=== PATIENT | female | born 1965 | race Caucasian/White ===

== ENCOUNTER → 2021-09-28 07:29 | Outpatient (CLI) | payer BC, SELFPAY ==
--- NOTE | 2021-09-28 07:36 | US_ITS ---
STUDY: ABDOMINAL ULTRASOUND - RIGHT UPPER QUADRANT REASON FOR VISIT: Female, 55 years old MEAD TECHNIQUE: Ultrasound evaluation of the right upper quadrant was performed with real-time and static marie-scale imaging. TECHNICAL QUALITY: Adequate. COMPARISON: None. FINDINGS: Liver: The liver is enlarged and measures 19.4 cm. There is increased echogenicity consistent with fatty infiltration. The bile ducts are within normal limits. There is hepatic color flow. The direction of portal flow is hepatopetal. There is no demonstrated mass lesion. Gallbladder: The patient is status post cholecystectomy. Common Bile Duct (C.B.D.): The common bile duct measures 6 mm. Pancreas: Normal size of the head, body and tail of the pancreas. There is normal echogenicity of the pancreas. There is no demonstrated pancreatic mass or cyst. Right Kidney: Normal size of the right kidney. The right kidney measures 11.4 cm x 5.9 cm x 4.5 cm. Normal renal cortex. The right cortex measures 1.3 cm. There is no demonstrated renal mass or cyst. There is no right hydronephrosis. IMPRESSION: Hepatomegaly and fatty infiltration of the liver. Electronically Signed: Daquan Conroy MD at 14:41 EST , Service support , STUDY: ABDOMINAL ULTRASOUND - ELASTOGRAPHY REASON FOR VISIT: Female, 55 years old. Fatty infiltration of the liver. TECHNIQUE: Liver stiffness measurements were obtained on a [employer] RS 85 ultrasound machine using a CA 1-7 probe following the SRU guidelines. 3 measurements were obtained using a 2-D-SWE method. The IQR/M was 14% suggesting a quality data set. TECHNICAL QUALITY: Adequate. COMPARISON: Comparison is made with prior examination of the abdomen today. FINDINGS: Liver: Hepatomegaly and fatty infiltration of the liver. Median liver stiffness measured 6.4 kPa. US/Abdomen Limited IMPRESSION: Liver stiffness measures 6.4 kPa compatible with F2 Metavir score. Electronically Signed: Daquan Conroy MD at 14:43 EST , Service support ,
== END ==
PROVIDERS: PCP Internal Medicine; Referring Provider Internal Medicine Gastroenterology; Visit Provider Internal Medicine Gastroenterology
DX: K75.81 Nonalcoholic steatohepatitis (NASH) (principal)
CPT/HCPCS: 76705; 76981; 87426; C9803

== ENCOUNTER → 2021-09-29 10:04 | Outpatient (CLI) | payer BC, SELFPAY ==
--- NOTE | 2021-09-29 10:19 | NM_ITS ---
CLINICAL: 55-year-old female with reported history of abdominal pain. SEMI-SOLID PHASE 99m Tc SULFUR COLLOID GASTRIC EMPTYING STUDY COMPARISON: None available FINDINGS: The patient was administered 1.1 mCi of 99m Tc sulfur colloid mixed with oatmeal and consumed per os. Image acquisitions in the anterior-posterior projections for a total of 60 minutes. There is prompt visualization of the stomach. Persistent visualization of the esophagus is noted during the course of image acquisition. There is no gastroesophageal reflux identified. The T ? emptying was calculated to be 27.72 minutes, (Normal: 12-56 minutes). NM/Gastric Emptying Study IMPRESSION: 1. NORMAL 99m Tc sulfur colloid semi-solid phase (oatmeal) gastric emptying imaging examination. A. There is normal and preserved semi-solid phase gastric emptying compared to normal controls. (Roxana et al, J Nucl Med Tech 38: 186, 2010). Electronically Signed: Yung Humphrey DO at 22:28 EST Tel , Service support ,
[2021-09-29 10:39] LABS: Erythrocyte Sedimentation Rate 21 mm/hr (0-30)
[2021-09-29 11:07] LABS: AST(SGOT) 19 U/L (15-37); Alanine Aminotransfer ALT/SGPT 36 U/L (13-56); Albumin, Serum 3.9 g/dL (3.2-5.0); Alkaline Phosphatase 45 U/L (45-117); Anion Gap 6 (5-15); BUN 13 mg/dL (7-18); BUN/Creat Ratio 13.7 RATIO (10-20); Calcium,Total 9.2 mg/dL (8.5-10.1); Chloride 106 mmol/L (98-107); Creatinine, Serum 0.95 mg/dL (0.55-1.02); EST Glomerular Filtration Rate 65 mL/min (>60); Est Glom Filt Rate - Afr Amer 79 mL/min (>60); Globulin 3.8 g/dL (2.2-4.2); Glucose 105 mg/dL (74-106); Potassium 3.7 mmol/L (3.5-5.1); Protein, Total 7.7 g/dL (6.4-8.2); Sodium Level 142 mmol/L (136-145); Thyroid Stim Hormone (TSH) 5.34 uIU/mL (0.358-3.74)
[2021-10-01 16:57] LABS: AFP, Tumor Marker 1.8 ng/mL (0.0-8.3)
[2021-10-01 16:58] LABS: Gastrin, Serum < 10 pg/mL (0-115)
== END ==
PROVIDERS: PCP Internal Medicine; Referring Provider Internal Medicine Gastroenterology; Visit Provider Internal Medicine Gastroenterology
DX: K31.84 Gastroparesis (principal); K21.9 Gastro-esophageal reflux disease without esophagitis; K76.0 Fatty (change of) liver, not elsewhere classified
CPT/HCPCS: 36415; 78264; 80053; 82105; 82941; 84443; 85652; 86140; A9541

== ENCOUNTER 2021-10-13 12:17 | Day surgery (SDC) | payer BC, SELFPAY ==
--- NOTE | 2021-10-13 | ESO_PTH ---
PATIENT: ANNABELLA JEFFERY LOC: EN U#:[id number] AGE/SX: 56/F ROOM: RE10/13/[address]: Dr. Keny Gomez DO : 1965 BED: DIS: 10/13/2021 SPEC #: [id number] RECD: 10/13/21 15:15 STATUS: GEENA DONI #: [id number] KAYODE: 10/13/21 00:[address]: Keny Gomez DEPT: SURGICAL PATHOLOGY RECD BY: Kofi Ferrari ENTERED: 10/14/21 08:45 SP TYPE: PETR BORJA DR: Dr. Airam Lundberg MD Tissues: A - Esophagus, NOS B - Duodenum, NOS Procedures: Special Stain Group II Surgery Specimen Level IV Alcian Blue/PAS (control) HEADER OPERATION: [place] [place] DIAGNOSIS: GERD, gastroparesis TISSUE SUBMITTED: A ? Distal esophagus, B - Duodenum MICROSCOPIC DIAGNOSIS A. Distal esophagus, biopsy: Gastroesophageal junctional mucosa with chronic inflammation. 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 No evidence of dysplasia. See comment. B. Duodenum, biopsy: No pathologic change. AM:summer 10/15/2021 COMMENT A. Immunohistochemistry ([id number]) for P53 and Ki-67 will be performed and results will be reported separately. Alcian blue/PAS stain with matched control supports the above diagnosis. MICROSCOPIC DESCRIPTION Slides are reviewed. GROSS DESCRIPTION A - Received in fixative is one container labeled with the patient's name and designated distal esophagus biopsy. The specimen consists of multiple irregular fragments of light zhao soft tissue that in aggregate measure 1 x 0.5 x 0.1 cm. The specimen is totally submitted in one cassette. B - Received in fixative is one container labeled with the patient's name and designated duodenum. The specimen consists of multiple irregular fragments of light zhao soft tissue that in aggregate measure 1 x 0.7 x 0.1 cm. The specimen is totally submitted in one cassette. / AM:summer 10/14/21 TC:3 CPT: 08571 x2
--- NOTE | 2021-10-13 | IMM_PTH ---
PATIENT: ANNABELLA JEFFERY LOC: EN U#:[id number] AGE/SX: 56/F ROOM: RE10/13/[address]: Dr. Keny Gomez DO : 1965 BED: DIS: 10/13/2021 SPEC #: [id number] RECD: 10/15/21 13:24 STATUS: GEENA DONI #: [id number] KAYODE: 10/13/21 00:[address]: Keny Gomez DEPT: IMMUNOHISTOCHEMISTRY RECD BY: Otilia Crockett ENTERED: 10/15/21 13:25 SP TYPE: IMMUNO OTHR DR: Dr. Airam Lundberg MD Tissues: A - Esophagus, NOS Procedures: P53 (add) KI-67 (initial) PHYSICIAN & INSTITUTION [place] [id number] SPECIMEN INFORMATION: Tissue Source: A ? Distal esophagus Clinical Info: GERD, gastroparesis Specimen Number: [id number] CPT code: 86469, 21349 METHODOLOGY: Deparaffinized sections of prefer/formalin-fixed tissue or PAP/DQ stained slides are incubated with monoclonal/polyclonal antibodies/oligonucleotide probes. Localization is made via biotin free immunoperoxidase method. Appropriate controls are performed and reacted as expected. Results on target cell population are indicated in the following table: RESULTS: ANTIBODY / CLONE RESULT Block A P53 (DO-7) negative Ki-67 (30-9) positive, very low These tests were developed and their performance characteristics determined by [facility]. They may not have been cleared or approved by the U.S. Food and Drug Administration. The FDA has determined that such clearance or approval is not necessary. The above immunohistochemical/dualISH markers are ordered and reviewed by the Pathologist. INTERPRETATION: A. Distal esophagus, biopsy: Negative for dysplasia. CHRIS:summer 10/19/2021
[2021-10-13] MEDS: Lactated Ringers 1,000 ML 15 ML IV (12:45)
[2021-10-13 12:53] VITALS: BP 158/81; PULSE 93; RESP 16; TEMP 36.8; O2SAT 98; BMI 42.3
[2021-10-13 14:30] VITALS: BP 120/70; BP 120/81; BP 158/81; PULSE 79; PULSE 81; RESP 16; TEMP 37.2; O2SAT 92
--- NOTE | 2021-10-13 14:37 | OP.CCLET_ITS ---
06/30/2022 Airam Lundberg Md Re : Upper GI endoscopy procedure for Brissa Armendariz Dear Dr. Lundberg This procedure was performed on Wednesday, October 13, 2021. My impressions and recommendations are as follows: Impressions : - LA Grade A reflux esophagitis. Biopsied. - Normal stomach. - Erythematous duodenopathy. Recommendations : - Discharge patient to home. - Resume previous diet. - Continue present medications. - Await pathology results. - Repeat upper endoscopy in 1 year for surveillance based on pathology results. - Return to GI office in 2 weeks. My findings are described in the full procedure note, which is enclosed. If I can be of further assistance, please feel free to contact me at . Sincerely, Keny Friend, 10/13/2021 2:37:15 PM This report has been signed electronically.
--- NOTE | 2021-10-13 14:37 | OP.EGD_ITS ---
Patient Name: Brissa Armendariz Procedure Date: 10/13/2021 1:58 PM Date of : 1965 Age: 56 Procedure: Upper GI endoscopy Indications: Enrique's esophagus Providers: Keny Gomez DO Referring MD: Keny Gomez DO Medicines: See the Anesthesia note for documentation of the administered medications Patient Profile: This is a 56 year old female. Refer to note in patient chart for documentation of history and physical. Patient has symptoms of chronic heartburn. She is status post EGD for Enrique's biopsy within the past three years. Complications: No immediate complications. Procedure: Pre-Anesthesia Assessment: - Prior to the procedure, a History and Physical was performed, and patient medications and allergies were reviewed. The risks and benefits of the procedure and the sedation options and risks were discussed with the patient. All questions were answered and informed consent was obtained. Patient identification and proposed procedure were verified by the physician in the pre-procedure area. Mental Status Examination: alert and oriented. Airway Examination: normal oropharyngeal airway and neck mobility. Respiratory Examination: clear to auscultation. CV Examination: normal. Prophylactic Antibiotics: The patient does not require prophylactic antibiotics. Prior Anticoagulants: The patient has taken no previous anticoagulant or antiplatelet agents. ASA Grade Assessment: II - A patient with mild systemic disease. After reviewing the risks and benefits, the patient was deemed in satisfactory condition to undergo the procedure. The anesthesia plan was to use moderate sedation / analgesia (conscious sedation). Immediately prior to administration of medications, the patient was re-assessed for adequacy to receive sedatives. The heart rate, respiratory rate, oxygen saturations, blood pressure, adequacy of pulmonary ventilation, and response to care were monitored throughout the procedure. The physical status of the patient was re-assessed after the procedure. After obtaining informed consent, the endoscope was passed under direct vision. Throughout the procedure, the patient's blood pressure, pulse, and oxygen saturations were monitored continuously. The gastroscope was introduced through the mouth, and advanced to the second part of duodenum. The upper GI endoscopy was accomplished without difficulty. The patient tolerated the procedure well. Moderate Sedation: Moderate (conscious) sedation was administered by the endoscopy nurse and supervised by the endoscopist. The patient's oxygen saturation, heart rate, blood pressure and response to care were monitored. Total physician intraservice time was 15 minutes. Scope In: 2:16:10 PM Scope Out: 2:22:32 PM Total Procedure Duration Time 0 hours 6 minutes 22 seconds Findings: LA Grade A (one or more mucosal breaks less than 5 mm, not extending between tops of 2 mucosal folds) esophagitis with no bleeding was found 34 to 35 cm from the incisors. Biopsies were taken with a cold forceps for histology. Verification of patient identification for the specimen was done. Estimated blood loss was minimal. The entire examined stomach was normal. Diffuse mildly erythematous mucosa without active bleeding and with no stigmata of bleeding was found in the first portion of the duodenum. Impression: - LA Grade A reflux esophagitis. Biopsied. - Normal stomach. - Erythematous duodenopathy. Recommendation: - Discharge patient to home. - Resume previous diet. - Continue present medications. - Await pathology results. - Repeat upper endoscopy in 1 year for surveillance based on pathology results. - Return to GI office in 2 weeks. Procedure Code(s): --- Professional --- 79190, Esophagogastroduodenoscopy, flexible, transoral; with biopsy, single or multiple 53347, 59, Moderate sedation services provided by the same physician or other qualified health housekeeper caregiver performing the diagnostic or therapeutic service that the sedation supports, requiring the presence of an independent trained observer to assist in the monitoring of the patient's level of consciousness and physiological status; initial 15 minutes of intraservice time, patient age 5 years or older CPT copyright 2017 [employer]. All rights reserved. The codes documented in this report are preliminary and upon diesel engine i pipe fitter review may be revised to meet current compliance requirements. Keny Gomez DO 10/13/2021 2:37:15 PM This report has been signed electronically. Number of Addenda: 1 Note Initiated On: 10/13/2021 1:58 PM Addendum Number: 1 Addendum Date: 06/30/2022 7:20:47 AM MAC was used instead of moderate sedation for the patient. Keny Gomez DO 06/30/2022 7:20:51 AM This report has been signed electronically.
[2021-10-13 14:40] VITALS: BP 126/74; BP 158/81; PULSE 82; RESP 16; O2SAT 94
[2021-10-13 14:45] VITALS: BP 131/77; BP 158/81; PULSE 79; RESP 16; O2SAT 94
[2021-10-13 14:49] VITALS: BP 126/76; BP 158/81; PULSE 79; RESP 16; O2SAT 92
[2021-10-13 14:55] VITALS: BP 158/81
--- NOTE | 2021-10-13 15:48 | PCM.HP.BLA ---
History and Physical Date of Admission: 10/13/21 ANNABELLA JEFFERY, is a 55 F who presents to the office today for abdominal pain, bloating and constipation. She says she originally had problems back in 2011 and is started off with just some mild nausea and abdominal pain. She was seeing a radiology physician in [place]. She had an EGD in 2011 with diagnosis of gastritis treated with TUMs. In October 2018 she had a colonoscopy for screening, previous colonoscopy showed diverticulitis but none seen this time. She then began having more difficulties with constipation, abdominal pain, bloating/gas and her PCP recommended fiber and gastroenterology referral. She saw another radiology physician who did EGD with dilation, biopsies indicated Enrique's esophagus nondysplastic and was prescribed Protonix. The Protonix made her feel ill with RUQ pain and ALT and AST would elevate. She was then prescribed carafate but medication did not help. A third medication was recommended but she felt uncomfortable with situation and returned to her PCP who referred to functional medicine. Met with functional medicine at [facility] for breath test for SEBO versus SEFO; SEFO treated with nystatin and an elimination diet. Saw another radiology physician who prescribed nexium but after taking she started having itching and felt like her throat was closing. She recently she has developed a decreased appetite. She is also very concerned because she was diagnosed with a fatty liver and has been struggling with obesity. She has no problems with hypertriglyceridemia. She has no family members with liver disease. She is not drinking alcohol. She has no problems with iron deposition. She has never had a liver biopsy. 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 Has also had genetic testing in regards to cancer including BRCA I and II. ROS Eyes Eyes: Positive for irritation ENT ENT: Positive for nasal congestion and hoarseness Gastro GI: Positive for abdominal pain, bloating, change in bowel habits, constipation, diarrhea and nausea/dyspepsia Genitourinary-Female: Positive for urinary incontinence Musc Musculoskeletal: Positive for joint pain and stiffness Skin Skin: Positive for dry skin, itchy eyes and rash Aller/Imm Allergy/Immunologic: Positive for itchy eyes Chance/Lymp Hematologic/Lymphatic: Positive for easy bruising Exam Const General: cooperative and comfortable Nutritional Appearance: average body habitus and well nourished [facility] Head: normal to inspection Ears: hearing grossly normal bilaterally Nose: external nose normal Face and sinus: normal facial exam Mouth: oral mucosae normal Throat: posterior oropharynx normal Eyes General: appearance normal, both eyes and all related structures Neck Neck: normal visual inspection Chest Chest palpation & inspection: normal inspection of the chest and normal palpation of entire chest wall Resp Effort & Inspection: normal respiratory effort Auscultation: Bilateral: Clear to Auscultation Cardio Palpation: normal PMI Rate: regular rate Rhythm: regular rhythm GI Inspection: normal to inspection Auscultation: normal bowel sounds Percussion: normal to percussion Palpation: no hepatosplenomegaly Skin General: no rashes or lesions noted Neuro General: patient alert Extrem General: normal to inspection Psych Affect: normal affect Assessment and Plan Assessment and Plan (1) Fatty liver: Status: Acute Orders: Orders: Gastric Emptying Study 1 Week CRP Today Erythrocyte Sed Rate Today AFP, Tumor Marker Today Gastrin, Serum Today Plan - Dr. Bustillo Friend, DO: We will get an elastography, ferritin, protein electrophoresis, viral hepatitis,, DOROTHY level, LENA, anti-smooth muscle antibody, antimitochondrial antibody and serum triglycerides to make sure she does not have any other underlying liver disease. (2) GERD (gastroesophageal reflux disease): Status: Acute Orders: Orders: Gastric Emptying Study 1 Week CRP Today Erythrocyte Sed Rate Today AFP, Tumor Marker Today Gastrin, Serum Today Plan - Dr. Bustillo Friend, DO: She will undergo an EGD with Damon placement to see if she really has gastroesophageal reflux disease and Enrique's esophagus versus nonerosive reflux disease resulting in Enrique's esophagus. (3) Gastroparesis: Status: Acute Orders: Orders: Gastric Emptying Study 1 Week CRP Today Erythrocyte Sed Rate Today AFP, Tumor Marker Today Gastrin, Serum Today Plan - Dr. Bustillo Friend, DO: Because she is experiencing so much bloating and having recurrent nausea I will get a gastric emptying study to evaluate the motility of her stomach. She may also need a small bowel follow-through to evaluate her small bowel because she has a large ventral hernia. Everything in regarding the plan and future recommendations were described in detail to the patient and the visit took approximately 45 minutes. I have re-examined the patient. There are no clinical changes since date of exam.
== END 2021-10-13 15:28 | disposition home or self-care (01) ==
LOC: EN 12:19 → AC 12:20
PROVIDERS: PCP Internal Medicine; Referring Provider Internal Medicine Gastroenterology; Visit Provider Internal Medicine Gastroenterology
PROC: 0DJ08ZZ Inspection of Upper Intestinal Tract, Via Natural or Artificial Opening Endoscopic (ICD-10-PCS; CPT 43235; principal; 2021-10-13 13:25)
DX: K21.00 Gastro-esophageal reflux disease with esophagitis, without bleeding (principal); K31.84 Gastroparesis; K76.0 Fatty (change of) liver, not elsewhere classified; I10 Essential (primary) hypertension; E66.9 Obesity, unspecified; Z68.41 Body mass index [BMI] 40.0-44.9, adult; G89.29 Other chronic pain; Z87.19 Personal history of other diseases of the digestive system; Z87.440 Personal history of urinary (tract) infections; Z79.899 Other long term (current) drug therapy
CPT/HCPCS: 43239; 88305; 88313; 88341; 88342; J7120; J2405

== ENCOUNTER → 2021-10-20 08:40 | Outpatient (CLI) | payer BC, SELFPAY ==
--- NOTE | 2021-10-20 08:45 | US_ITS ---
INDICATION: hypothyroidism, GOITER PT ON LEVOTHYROXINE EXAMINATION: Ultrasound US Thyroid (eg thyroid, parathyroid, parotid) TECHNIQUE: Olivier scale and color doppler imaging was performed of the thyroid gland. COMPARISON: None. FINDINGS: RIGHT THYROID LOBE: The right lobe of the thyroid gland is prominent in size and demonstrates heterogeneous echogenicity with unremarkable vascularity, The right lobe of the thyroid gland measures 5.7 x 2.2 x 2.5 cm. 2 nodules are visualized in the right lobe of the thyroid gland. #1- Location: Lower pole Size: 1.2 x 1.1 x 1.1 cm Composition: 2 Echogenicity: 2 Shape: 0 Margins: 0 Echogenic Foci: 0 Total points 4, TIRADS level TR4 #2- Location: Local Size: 0.4 x 0.5 x 0.5 cm. Composition: 2 Echogenicity: 1 Shape: 0 Margins: 0 Echogenic Foci: 0 Total points 3, TIRADS level TR3 LEFT THYROID LOBE: The left lobe of the thyroid gland is enlarged in size demonstrating heterogeneous echogenicity and unremarkable vascularity. The left lobe of the thyroid gland measures 5.4 x 2.9 x 2.9 cm. 2 hypervascular nodules are visualized within the left lobe. #3- Location: Upper pole Size: 3.3 x 2.2 x 2.3 cm. Composition: 2 Echogenicity: 1 Shape: 0 Margins: 0 Echogenic Foci: 0 Total points3, TIRADS level TR3 #4- Location: Midpole Size: 1.3 x 1.0 x 1.0 cm Composition: Echogenicity: Shape: 0 Margins: 0 Echogenic Foci: 0 Total points 3, TIRADS level TR3 ISTHMUS: The isthmus demonstrates homogenous echogenicity and measures 0.3 cm in AP diameter. No evidence of nodules within the isthmus. US/Thyroid IMPRESSION: Enlargement of both lobes of the thyroid gland. A 1.2 cm TR 4 nodule is visualized in the midpole of the right lobe. TR4: Moderately suspicious (4-6 pts) FNA biopsy if nodule at least 1.5cm; follow if at least 1 cm at 1,2, 3 and 5 years. A 0.5 cm TR 3 nodule is visualized in the midpole of the right lobe. A 3.3cm TR 3 nodule visualized in the midpole of the left lobe. A 1.3 cm TR 3 nodule in the lower pole of the left lobe. TR3: Mildly suspicious (3 pts) FNA biopsy if nodule at least 2.5cm; follow if at least 1.5cm at 1,3 and 5 years.. Electronically Signed: Martin Loving MD at 15:09 EST Tel , Service support ,
== END ==
PROVIDERS: PCP Internal Medicine; Referring Provider Surgery; Visit Provider Surgery
DX: E06.3 Autoimmune thyroiditis (principal); E04.2 Nontoxic multinodular goiter; E03.8 Other specified hypothyroidism
CPT/HCPCS: 76536

== ENCOUNTER 2021-11-19 16:03 | Outpatient (CLI) | payer BC, SELFPAY ==
[2021-11-19 16:50] LABS: Hemoglobin A1c 5.6 % (3.8-5.6)
[2021-11-19 16:51] LABS: LDH 206 U/L (84-246)
[2021-11-19 17:06] LABS: Homocysteine 8.6 umol/L (3.2-10.7)
[2021-11-23 18:08] LABS: Anti-Centromere B Ab <0.2 AI (0.0-0.9); Anti-Chromatin <0.2 AI (0.0-0.9); Anti-Jo <0.2 AI (0.0-0.9); Anti-Scleroderma-70 AB <0.2 AI (0.0-0.9); Cytoplasmic Ab (C-ANCA) <1:20 titer (Neg:<1:20); RNP Ab <0.2 AI (0.0-0.9); SJOGREN'S Anti-SS-A test < 0.2 AI (0.0-0.9); SJOGREN'S Anti-SS-B test < 0.2 AI (0.0-0.9); Smith Ab <0.2 AI (0.0-0.9)
[2021-11-23 21:48] LABS: Angiotensin Convert Enzyme 31 U/L (14-82); Anti-Smooth Muscle ABS 23 Units (0-19); Perinuclear Ab (P-ANCA) <1:20 titer (Neg:<1:20)
[2021-11-24 14:05] LABS: Anti-Mitochondrial AB <20.0 Units (0.0-20.0); Anti-dsDNA Ab <1 IU/mL (0-9)
== END 2021-11-19 23:59 | disposition short-term general hospital (02) ==
LOC: LAB 16:05
PROVIDERS: Visit Provider Nurse Practitioner Adult Health
DX: K76.0 Fatty (change of) liver, not elsewhere classified (principal); R79.82 Elevated C-reactive protein (CRP)
CPT/HCPCS: 36415; 82164; 83036; 83090; 83516; 83615; 86225; 86235; 86256

== ENCOUNTER 2021-11-24 10:06 | Outpatient (CLI) | payer BC, SELFPAY ==
[2021-11-24 13:03] LABS: Vitamin B12 455 pg/mL (211-911); Vitamin D,25 Hydroxy 28.4 ng/mL
== END 2021-11-24 23:59 | disposition short-term general hospital (02) ==
LOC: BIMLAB 10:11
PROVIDERS: PCP Internal Medicine; Referring Provider Internal Medicine; Visit Provider Internal Medicine
DX: E53.8 Deficiency of other specified B group vitamins (principal); E55.9 Vitamin D deficiency, unspecified
CPT/HCPCS: 36415; 82306; 82607

== ENCOUNTER 2021-12-08 11:11 | Outpatient (CLI) | payer BC, SELFPAY ==
--- NOTE | 2021-12-08 | FLU_PTH ---
PATIENT: ANNABELLA JEFFERY LOC: [facility] U#:[id number] AGE/SX: 56/F ROOM: RE12/08/[address]: Dr. Bakari Gleason MD : 1965 BED: DIS: 12/08/2021 SPEC #: [id number] RECD: 12/08/21 13:13 STATUS: GEENA DONI #: [id number] KAYODE: 12/08/21 00:[address]: Bakari Gleason DEPT: CYTOLOGY RECD BY: Kofi Ferrari ENTERED: 12/08/21 13:16 SP TYPE: Fluid OTHR DR: Dr. Kendall Curry MD Tissues: A - Thyroid gland, NOS B - Thyroid gland, NOS C - Thyroid gland, NOS D - Thyroid gland, NOS Procedures: Special Stain Group II Surgery Specimen Level IV Cytospin Fluid HEADER OPERATION: Left thyroid fine needle aspiration PRE-OP DIAGNOSIS: Left thyroid nodules, multiple TISSUE SUBMITTED: A ? Left mid pole thyroid nodule fluid, B ? Left mid pole thyroid nodule slides x4, C ? Left upper thyroid nodule fluid, D ? Left upper thyroid nodule x4 slides DIAGNOSIS CYTOLOGY A. Left mid pole thyroid nodule fluid, FNA (cytospin and cell block): Rare follicular cells noted. B. Left mid pole thyroid nodule, FNA (smears): Suggestive of benign follicular/colloid nodule. The specimen is limited in evaluation due to lack of adequate number of follicular cells. C. Left upper thyroid nodule fluid, FNA (cytospin and cell block): Acellular specimen. D. Left upper thyroid nodule, FNA (smears): Consistent with benign follicular/colloid nodule. Adequate for evaluation. See comment. SJ:rg 12/09/2021 COMMENT Correlation with clinical, radiologic findings and appropriate follow up are necessary. Case has been reviewed in consultation with Dr. Sherman who concurs with the above diagnosis. IDC:AM CYTOLOGY STUDY Slides are reviewed. CYTOLOGY GROSS A - Received is 15 ml of red cloudy fluid with particles labeled with the patient's name and and designated per the requisition as left mid pole thyroid nodule. Submitted for cytology preparation including cell block. B - Received are four smears labeled with the patient's name and designated per the requisition as left mid pole thyroid nodule. Submitted for staining. C - Received is 15 ml of red cloudy fluid with particles labeled with the patient's name and and designated per the requisition as left upper thyroid nodule. Submitted for cytology preparation including cell block. D - Received are four smears labeled with the patient's name and designated per the requisition as left upper thyroid nodule. Submitted for staining. / summer 12/08/2021 TC:5 CPT: 69574 x2, 45611 x4
== END 2021-12-08 23:59 | disposition home or self-care (01) ==
LOC: LABSPEC 11:12
PROVIDERS: PCP Internal Medicine; Visit Provider Surgery
DX: E04.2 Nontoxic multinodular goiter (principal)
CPT/HCPCS: 88108; 88305; 88313

== ENCOUNTER 2021-12-09 08:00 | Outpatient (CLI) | payer BC, SELFPAY ==
--- NOTE | 2021-12-09 08:05 | ECHOD_ITS ---
Reason For Study: ESSENTIAL HYPERTENSION Procedure This was a 2D Doppler, Color Flow transthoracic echocardiogram. Exam performed in department. Left Ventricle Normal size and thickness. Left ventricular systolic function is normal. The estimated ejection fraction is 60 %. No regional wall motion abnormalities noted. Right Ventricle Normal right ventricle. Normal systolic function. Atria The left atrium is mildly enlarged. Normal right atrium. Mitral Valve Normal mitral valve. Tricuspid Valve Normal tricuspid valve. Aortic Valve Normal aortic valve. Trisinus/trileaflet aortic valve. Pulmonic Valve Normal pulmonic valve. Great Vessels Mildly dilated aortic root. The pulmonary artery is normal size. Normal inferior vena cava. Pericardium/Pleural No pericardial effusion. MMode/2D Measurements & Calculations LVIDd: 5.1 cm IVSd: 1.0 cm Ao root diam: 3.8 cm LVIDs: 3.5 cm LVPWd: 1.0 cm RVDd: 3.4 cm FS: 31.7 % LAV(MOD-bp): 77.7 ml LA A4 area: 23.4 cm2 LA dimension(2D): 3.9 cm LAV(MOD-bp) Indexed: 34.7 ml/m2 LAV(MOD-sp2): 75.4 ml LAV(MOD-sp4): 75.4 ml RA A4 area: 17.4 cm2 Time Measurements MV dec time: 0.18 sec Doppler Measurements & Calculations MV E max jason: 81.5 cm/sec Lat Peak E' Jason: 11.7 cm/sec Med Peak E' Jason: 8.6 cm/sec MV A max jason: 58.5 cm/sec E/E' lat: 7.0 E/E' med: 9.5 MV E/A: 1.4 Ao V2 max: 122.9 cm/sec LV V1 max: 102.8 cm/sec PA V2 max: 73.2 cm/sec Ao max P.0 mmHg LV V1 max P.2 mmHg ECHO/Echo Complete Interpretation Summary Normal size and thickness. Left ventricular systolic function is normal. The estimated ejection fraction is 60 %. The left atrium is mildly enlarged. Mildly dilated aortic root. Ordering Physician: Kendall Curry Referring Physician: Kendall Curry Performed By: Iram De La Garza, AVRIL, RVT
== END 2021-12-09 23:59 | disposition home or self-care (01) ==
PROVIDERS: PCP Internal Medicine; Referring Provider Internal Medicine; Visit Provider Internal Medicine
DX: I10 Essential (primary) hypertension (principal); G47.33 Obstructive sleep apnea (adult) (pediatric)
CPT/HCPCS: 93306

== ENCOUNTER 2021-12-23 10:40 | Outpatient (CLI) | payer BC, SELFPAY ==
[2021-12-23 12:48] LABS: T4 Free Direct 1.31 ng/dL (0.76-1.46); Thyroid Stim Hormone (TSH) 1.87 uIU/mL (0.358-3.74)
[2021-12-24 18:53] LABS: Thyroid Peroxidase AB < 8 IU/mL (0-34)
== END 2021-12-23 23:59 | disposition home or self-care (01) ==
LOC: LAB 10:43
PROVIDERS: PCP Internal Medicine; Referring Provider Internal Medicine Endocrinology, Diabetes & Metabolism; Visit Provider Internal Medicine Endocrinology, Diabetes & Metabolism
DX: E03.8 Other specified hypothyroidism (principal); E06.3 Autoimmune thyroiditis
CPT/HCPCS: 36415; 84439; 84443; 86376

== ENCOUNTER → 2022-04-09 | Outpatient (CLI) | payer BC, SELFPAY ==
[2022-04-09 15:34] LABS: T4 Free Direct 1.11 ng/dL (0.76-1.46); Thyroid Stim Hormone (TSH) 2.38 uIU/mL (0.358-3.74)
== END | disposition home or self-care (01) ==
LOC: BIMLAB 14:08
PROVIDERS: PCP Internal Medicine; Referring Provider Internal Medicine Endocrinology, Diabetes & Metabolism; Visit Provider Internal Medicine Endocrinology, Diabetes & Metabolism
DX: E03.9 Hypothyroidism, unspecified (principal)
CPT/HCPCS: 36415; 84439; 84443

== ENCOUNTER → 2022-05-07 | Outpatient (CLI) | payer BC, SELFPAY ==
[2022-05-07 11:38] LABS: Mucous, Urine 0 SEEN /hpf (<or=2+); Red Blood Cells-Urine 0 SEEN /hpf (0-5); White Blood Cells 0 SEEN /hpf (0-5)
[2022-05-07 15:26] LABS: Color, Urine Yellow (Yellow); Glucose, Dipstick Normal (Normal); Ketone-Dipstick Negative (Negative); Leukocyte Esterase-Dipstick 25 /ul (Negative); Nitrite-Dipstick Negative (Negative); Occult Blood-Urine Negative /ul (Negative); Protein-Dipstick Negative (Negative); Specific Gravity, Urine 1.005 (1.002-1.030); Urine Bilirubin Dipstick Negative (Negative); Urine Clarity Sl. Cloudy (Clear); Urine Urobilinogen Normal (Normal)
[2022-05-07 15:53] LABS: Bacteria RARE /hpf (None Seen); Squamous Epithelial Cells - UA 0-5 SEEN /hpf (5-10)
[2022-05-07 17:44] LABS: ALB/GLOB Ratio 1.2 RATIO (0.9-2.4); AST(SGOT) 13 U/L (15-37); Alanine Aminotransfer ALT/SGPT 25 U/L (13-56); Albumin, Serum 4.2 g/dL (3.2-5.0); Alkaline Phosphatase 43 U/L (45-117); Anion Gap 6 (5-15); BUN 14 mg/dL (7-18); BUN/Creat Ratio 15.3 RATIO (10-20); Calcium,Total 9.2 mg/dL (8.5-10.1); Chloride 103 mmol/L (98-107); Creatinine, Serum 0.92 mg/dL (0.55-1.02); EST Glomerular Filtration Rate 68 mL/min (>60); Est Glom Filt Rate - Afr Amer 82 mL/min (>60); Globulin 3.6 g/dL (2.2-4.2); Glucose 91 mg/dL (74-106); Potassium 3.7 mmol/L (3.5-5.1); Protein, Total 7.8 g/dL (6.4-8.2); Sodium Level 141 mmol/L (136-145)
== END | disposition home or self-care (01) ==
LOC: BIMLAB 11:37
PROVIDERS: PCP Internal Medicine; Referring Provider Physician Assistant; Visit Provider Physician Assistant
DX: K75.81 Nonalcoholic steatohepatitis (NASH) (principal); N39.0 Urinary tract infection, site not specified; R10.9 Unspecified abdominal pain
CPT/HCPCS: 36415; 80053; 81001; 87086; 87088

== ENCOUNTER 2022-05-18 16:21 | Outpatient (CLI) | payer BC, SELFPAY ==
[2022-05-21 16:19] LABS: HPV APTIMA, High Risk Negative (Negative)
== END 2022-05-18 23:59 | disposition home or self-care (01) ==
LOC: LABSPEC 16:23
PROVIDERS: PCP Internal Medicine; Referring Provider Obstetrics & Gynecology; Visit Provider Obstetrics & Gynecology
DX: N39.3 Stress incontinence (female) (male) (principal)
CPT/HCPCS: 87086; 87088; 87624; 88175; G0145

== ENCOUNTER → 2022-06-03 | Outpatient (CLI) | payer BC, SELFPAY ==
[2022-06-03 15:47] LABS: Mucous, Urine 0 SEEN /hpf (<or=2+); Red Blood Cells-Urine 0 SEEN /hpf (0-5)
[2022-06-03 16:32] LABS: Color, Urine Straw (Yellow); Glucose, Dipstick Normal (Normal); Ketone-Dipstick Negative (Negative); Leukocyte Esterase-Dipstick 25 /ul (Negative); Nitrite-Dipstick Negative (Negative); Occult Blood-Urine Negative /ul (Negative); Protein-Dipstick Negative (Negative); Urine Bilirubin Dipstick Negative (Negative); Urine Clarity Clear (Clear); Urine Urobilinogen Normal (Normal); Urine pH 6.5 (5.0 - 8.0)
[2022-06-03 16:45] LABS: Bacteria RARE /hpf (None Seen); Squamous Epithelial Cells - UA 0-5 SEEN /hpf (5-10); White Blood Cells 0-5 SEEN /hpf (0-5)
== END | disposition home or self-care (01) ==
LOC: LABSPEC 15:45
PROVIDERS: PCP Internal Medicine; Referring Provider Internal Medicine; Visit Provider Internal Medicine
DX: N39.3 Stress incontinence (female) (male) (principal)
CPT/HCPCS: 81001

== ENCOUNTER → 2022-06-09 | Outpatient (CLI) | payer BC, SELFPAY ==
--- NOTE | 2022-06-09 12:42 | BI_ITS ---
MAMMOGRAPHY - BILATERAL SCREENING REASON FOR EXAM: Female, 56 years old. Routine annual screening examination. PERTINENT HISTORY: Aunts with breast cancer. TECHNIQUE: Digital bilateral breast enmanuel (3D mammographic acquisition) in the CC and MLO projections. 2-D mediolateral oblique (MLO) and craniocaudad (CC) views of both breasts were obtained. CAD: Full Field Digital Mammography with Computer Added Detection was performed. COMPARISON: Comparison is made with prior examination dated 05/12/2021. FINDINGS: Breast Composition: The breasts are heterogeneously dense, which may obscure small masses. There are no dominant masses or suspicious calcifications. Small benign appearing bilateral axillary nodes. No other significant abnormalities are identified. There has been no significant change since the prior study. BI/SCRN MAMM (CAD)W/ENMANUEL BILAT IMPRESSION: Stable bilateral screening mammogram. Yearly follow-up mammogram recommended. (A) ASSESSMENT CATEGORY: BIRADS Category 2: Benign. A letter regarding these results will be sent to the patient by the facility within 30 days. Approximately 10% of breast cancers are not detected by mammography. A normal mammogram should not delay biopsy of a clinically suspicious abnormality. [id number] Electronically Signed: Daquan Conroy MD at 13:15 EDT ,
--- NOTE | 2022-06-09 12:53 | US_ITS ---
EXAM: US RETROPERITONEAL LIMITED, RENAL CLINICAL INDICATION: UTI TECHNIQUE: Limited grayscale and color Doppler sonographic evaluation of the retroperitoneum was performed. This report was created using [employer] report generation technology. COMPARISON: None. FINDINGS: RIGHT KIDNEY: Right kidney measures 12 cm in length. No hydronephrosis. No shadowing calculus. No perinephric collection is demonstrated. 11 mm cyst. No follow-up indicated. LEFT KIDNEY: Left kidney measures 12.1 cm in length. No hydronephrosis. No shadowing calculus. No perinephric collection is demonstrated. Urinary bladder is normal. US/Kidney and Bladder IMPRESSION: No acute abnormality. Electronically Signed: Chapo Contreras MD at 13:49 EDT ,
== END | disposition home or self-care (01) ==
PROVIDERS: PCP Internal Medicine; Visit Provider Urology
DX: Z12.31 Encounter for screening mammogram for malignant neoplasm of breast (principal); N39.0 Urinary tract infection, site not specified
CPT/HCPCS: 76770; 77063; 77067

== ENCOUNTER → 2022-11-09 | Outpatient (CLI) | payer BC, SELFPAY ==
--- NOTE | 2022-11-09 11:56 | US_ITS ---
STUDY: THYROID ULTRASOUND REASON FOR EXAM: Female, 57 years old. Multinodular goiter, hypothyroidism TECHNIQUE: Ultrasound evaluation of the thyroid was performed with real-time and static marie-scale imaging. COMPARISON: Comparison is made with prior examination dated 10/20/2021. FINDINGS: RIGHT LOBE: The right lobe of the thyroid gland is enlarged and measures 5.8 cm x 1.7 cm x 2.2 cm. There is a heterogeneous echotexture. Once again, multiple hypoechoic nodules are seen throughout the right lobe. The largest measures 1 cm x 1.1 cm x 1 cm. This is a collimation of solid/cystic appearance. This is in the lower pole. This is unchanged. LEFT LOBE: The left lobe of the thyroid gland is enlarged and measures 4.7 cm x 2.5 cm x 2.7 cm. There is a heterogeneous echotexture. A dominant solid hypoechoic nodule is seen in the midpole. This measures 3.6 x 2.3 cm x 2.3 cm. This is essentially unchanged. Smaller solid nodules are also seen. These are unchanged. ISTHMUS: The isthmus measures 4 mm. The regional lymph nodes are normal. US/Thyroid IMPRESSION: Enlargement of both lobes of the thyroid was on the right side with a dominant 3.6 cm x 2.3 cm x 2.3 cm solid nodule in the midpole of the left lobe. Biopsy is recommended if not already performed. Electronically Signed: Daquan Conroy MD at 15:36 EST ,
== END | disposition home or self-care (01) ==
PROVIDERS: PCP Internal Medicine; Visit Provider Surgery
DX: E04.2 Nontoxic multinodular goiter (principal); E03.8 Other specified hypothyroidism; E06.3 Autoimmune thyroiditis
CPT/HCPCS: 76536

== ENCOUNTER → 2022-12-06 | Outpatient (CLI) | payer BC, SELFPAY ==
[2022-12-06 12:30] LABS: Anion Gap 7 (5-15); BUN 20 mg/dL (7-18); Calcium,Total 9.1 mg/dL (8.5-10.1); Chloride 103 mmol/L (98-107); Creatinine, Serum 0.91 mg/dL (0.55-1.02); EST Glomerular Filtration Rate 68 mL/min (>60); Est Glom Filt Rate - Afr Amer 82 mL/min (>60); Glucose 106 mg/dL (74-106); Magnesium 2.1 mg/dL (1.6-2.6); Potassium 3.7 mmol/L (3.5-5.1); Sodium Level 140 mmol/L (136-145)
[2022-12-06 12:43] LABS: Free T3 2.7 pg/mL (2.18-3.98); T4 Total, Thyroxin 14.2 ug/dL (4.8-13.9)
== END | disposition home or self-care (01) ==
LOC: BIMLAB 09:03
PROVIDERS: Surgery; PCP Internal Medicine; Referring Provider Internal Medicine; Visit Provider Internal Medicine
DX: E03.8 Other specified hypothyroidism (principal); E06.3 Autoimmune thyroiditis; E04.2 Nontoxic multinodular goiter; I10 Essential (primary) hypertension
CPT/HCPCS: 36415; 80048; 83735; 84436; 84443; 84481

== ENCOUNTER → 2023-01-25 | Outpatient (CLI) | payer BC, SELFPAY ==
--- NOTE | 2023-01-25 07:50 | US_ITS ---
STUDY: ABDOMINAL ULTRASOUND - ELASTOGRAPHY REASON FOR VISIT: Female, 57 years old. NAFLD TECHNIQUE: Liver stiffness measurements were obtained on a [employer] RS 85 ultrasound machine using a CA 1-7 probe following the SRU guidelines. 3 measurements were obtained using a 2-D-SWE method. TheIQR/M was 12% suggesting a quality data set. TECHNICAL QUALITY: Adequate. COMPARISON: Comparison is made with prior study done earlier today. FINDINGS: Liver: Hepatomegaly. Fatty infiltration of the liver. Median liver stiffness measured 5.8 kPa. Abdomen: Hepatomegaly. Fatty infiltration of the liver. US/Abdomen Limited IMPRESSION: Liver stiffness measures 6.8 kPa compatible with F2-F3 (Mild to moderate liver fibrosis) Metavir score. Electronically Signed: Daquan Conroy MD at 14:24 EDT ,
== END | disposition home or self-care (01) ==
PROVIDERS: PCP Internal Medicine; Referring Provider Nurse Practitioner Adult Health; Visit Provider Nurse Practitioner Adult Health
DX: K76.0 Fatty (change of) liver, not elsewhere classified (principal)
CPT/HCPCS: 76705; 76981

== ENCOUNTER → 2023-02-09 | Outpatient (CLI) | payer SELFPAY ==
--- NOTE | 2023-02-09 12:23 | CT_ITS ---
INDICATION: CAD EXAMINATION: CT CHEST WITHOUT CONTRAST - CT Chest W/O Contrast Injection. Cardiac over read examination. TECHNIQUE: Helically acquired images were obtained of the chest. A radiation dose optimization technique was used for this scan. IV Contrast dosage and agent: None. COMPARISON: None. FINDINGS: LUNGS, PLEURA AND LARGE AIRWAYS: Mild degree of increased linear markings at the lung bases suggestive of mild scarring. No pleural effusion or thickening. No pneumothorax. THYROID: No thyroid lesions. HEART AND PERICARDIUM: Heart size is normal. No pericardial effusion. CORONARY ARTERIES: Coronary artery calcification mild degree of coronary artery calcification. VESSELS: Thoracic aorta is not dilated. MEDIASTINUM AND UMANG: No mediastinal or hilar adenopathy. Esophagus is unremarkable. No hiatal hernia. UPPER ABDOMEN: No acute pathology. BONES: No suspicious lytic or blastic abnormality. CT/Limited Chest CT Cardiac Only IMPRESSION: Mild degree of coronary artery calcification. Mild degree of increased markings at the lung bases suggestive of scarring. Electronically Signed: Daquan Conroy MD at 14:59 EDT ,
--- NOTE | 2023-02-09 15:54 | CA.SCORE ---
Calcium Scoring Date of Study:: 02/09/23 Coronary Calcium Scoring: High-resolution Computed Tomographic imaging of the chest was performed on [02/09/2023], with particular attention paid to the coronary arteries. Images from the examination were analyzed for the presence and extent of coronary artery calcification , using coronary calcium quantification software. The patient tolerated the procedure well and there were no complications. The results of the coronary calcification analysis are provided below. Findings Coronary Artery Left Main (LM): 0 Left Anterior Descending (LAD): 0 Left Circumflex (LCX): 0 Right Coronary Artery (RCA): 0 Total Agatston Score: 0 Percentile Rankin Calcium Scoring Interpretation: Different methods to categorize the overall amount of coronary plaque. Overall amount CAC SIS Visual of coronary plaque P1 Mild -100 <2 1-2 vessels with mild amount of plaque P2 Moderate 101-300 3-4 1-2 vessels with moderate amount, 3 vessels with mild amount of plaque P3 Severe 301-999 5-7 3 vessels with moderate amount, 1 vessel with severe amount of plaque P4 Extensive >1000 >8 2-3 vessels with severe amount of plaque Conclusion: No significant atherosclerotic plaquing noted.
== END | disposition home or self-care (01) ==
LOC: CT 12:19
PROVIDERS: PCP Internal Medicine; Referring Provider Physician Assistant Medical; Visit Provider Physician Assistant Medical
DX: E88.81 Metabolic syndrome and other insulin resistance (principal); I25.10 Atherosclerotic heart disease of native coronary artery without angina pectoris
CPT/HCPCS: 75571; 76380

== ENCOUNTER 2023-07-19 10:32 | Outpatient (RCR) | payer BC, SELFPAY | END 2023-07-23 23:59 | LOC: NS 10:32 | PROVIDERS: PCP Internal Medicine; Referring Provider Internal Medicine; Visit Provider Internal Medicine | DX: Z71.3 Dietary counseling and surveillance (principal); E66.01 Morbid (severe) obesity due to excess calories; Z68.41 Body mass index [BMI] 40.0-44.9, adult | CPT/HCPCS: 97802 ==

== ENCOUNTER → 2023-07-29 | Outpatient (CLI) | payer BC, SELFPAY ==
--- NOTE | 2023-07-29 09:37 | BI_ITS ---
MAMMOGRAPHY - BILATERAL SCREENING REASON FOR EXAM: Female, 57 years old. Routine annual screening examination. PERTINENT HISTORY: Aunts with breast cancer. TECHNIQUE: Digital bilateral breast enmanuel (3D mammographic acquisition) in the CC and MLO projections. 2-D mediolateral oblique (MLO) and craniocaudad (CC) views of both breasts were obtained. CAD: Full Field Digital Mammography with Computer Added Detection was performed. COMPARISON: Comparison is made with prior study done June 09, 2022. FINDINGS: Breast Composition: The breasts are heterogeneously dense, which may obscure small masses. There are no dominant masses or suspicious calcifications. Stable small benign-appearing bilateral axillary lymph nodes. No other significant abnormalities are identified. There has been no significant change since the prior study. BI/SCRN MAMM (CAD)W/ENMANUEL BILAT IMPRESSION: Stable bilateral screening mammogram. Yearly follow-up mammogram recommended. (A) ASSESSMENT CATEGORY: BIRADS Category 2: Benign. A letter regarding these results will be sent to the patient by the facility within 30 days. Approximately 10% of breast cancers are not detected by mammography. A normal mammogram should not delay biopsy of a clinically suspicious abnormality. [id number] Electronically Signed: Daquan Conroy MD at 10:43 EDT ,
== END | disposition home or self-care (01) ==
LOC: OPBI 09:36
PROVIDERS: PCP Internal Medicine; Referring Provider Obstetrics & Gynecology; Visit Provider Obstetrics & Gynecology
DX: Z12.31 Encounter for screening mammogram for malignant neoplasm of breast (principal); Z80.3 Family history of malignant neoplasm of breast
CPT/HCPCS: 77063; 77067

== ENCOUNTER 2023-08-02 10:29 | Outpatient (RCR) | payer BC, SELFPAY | END 2023-08-23 23:59 | LOC: NS 10:29 | PROVIDERS: PCP Internal Medicine; Referring Provider Internal Medicine; Visit Provider Internal Medicine | DX: Z71.3 Dietary counseling and surveillance (principal); E66.01 Morbid (severe) obesity due to excess calories; Z68.41 Body mass index [BMI] 40.0-44.9, adult | CPT/HCPCS: 97803 ==

== ENCOUNTER → 2023-09-09 | Outpatient (CLI) | payer BC, SELFPAY ==
[2023-09-09 18:44] LABS: Basophil# 0.02 X10^3/uL; Basophil% 0.2 % (0-1); Eosinophil# 0.23 X10^3/uL; Eosinophils% 2.8 % (0-5); Hematocrit 38.9 % (37-47); Hemoglobin 12.4 g/dL (12.0-15.0); Mean Corp Hgb Conc 31.9 g/dL (32-36); Mean Corpuscular Hgb 28.4 pg (27.0-32.0); Mean Corpuscular Volume 89.2 fL (81-99); Mean Platelet Vol. 10.2 fl (6.2-12.0); Monocyte# 0.62 X10^3/uL; Monocyte% 7.6 % (0-10); NRBC Flagged by Analyzer 0 % (0-5); Neutrophil # 5.04 X10^3/uL (2.7-7.7); Neutrophil % 61.9 % (47-70); POSITIVE COUNT YES; Platelet Count 91 K/mm3 (150-450); RBC Distribution Width CV 14.2 % (11.6-14.6); RBC Distribution Width SD 46.5 fl (35.1-43.9); Red Blood Count 4.36 M/mm3 (4.2-5.4); White Blood Count 8.2 K/mm3 (4.4-11.0)
[2023-09-09 19:19] LABS: ALB/GLOB Ratio 1.1 RATIO (0.9-2.4); AST(SGOT) 14 U/L (15-37); Alanine Aminotransfer ALT/SGPT 35 U/L (13-56); Albumin, Serum 3.9 g/dL (3.2-5.0); Alkaline Phosphatase 44 U/L (45-117); Anion Gap 6 (5-15); BUN 20 mg/dL (7-18); Calcium,Total 8.9 mg/dL (8.5-10.1); Chloride 105 mmol/L (98-107); Creatinine, Serum 1.05 mg/dL (0.55-1.02); EST Glomerular Filtration Rate 57 mL/min (>60); Est Glom Filt Rate - Afr Amer 70 mL/min (>60); Globulin 3.4 g/dL (2.2-4.2); Glucose 88 mg/dL (74-106); Potassium 3.5 mmol/L (3.5-5.1); Protein, Total 7.3 g/dL (6.4-8.2); Sodium Level 143 mmol/L (136-145)
[2023-09-09 19:20] LABS: T4 Free Direct 1.21 ng/dL (0.76-1.46); Thyroid Stim Hormone (TSH) 1.97 uIU/mL (0.358-3.74)
== END | disposition home or self-care (01) ==
LOC: LAB 16:19
PROVIDERS: Nurse Practitioner Adult Health; PCP Internal Medicine; Visit Provider Internal Medicine Endocrinology, Diabetes & Metabolism
DX: K76.0 Fatty (change of) liver, not elsewhere classified (principal); E03.8 Other specified hypothyroidism; E06.3 Autoimmune thyroiditis
CPT/HCPCS: 36415; 80053; 84439; 84443; 85025

== ENCOUNTER → 2024-01-23 | Outpatient (CLI) | payer BC, SELFPAY ==
[2024-01-23 17:34] LABS: ALB/GLOB Ratio 1.2 RATIO (0.9-2.4); AST(SGOT) 23 U/L (15-37); Alanine Aminotransfer ALT/SGPT 38 U/L (13-56); Albumin, Serum 3.8 g/dL (3.2-5.0); Alkaline Phosphatase 39 U/L (45-117); Anion Gap 4 (5-15); BUN 13 mg/dL (7-18); BUN/Creat Ratio 13.8 RATIO (10-20); Calcium,Total 8.9 mg/dL (8.5-10.1); Chloride 105 mmol/L (98-107); Creatinine, Serum 0.94 mg/dL (0.55-1.02); EST Glomerular Filtration Rate 65 mL/min (>60); Est Glom Filt Rate - Afr Amer 79 mL/min (>60); Globulin 3.3 g/dL (2.2-4.2); Glucose 90 mg/dL (74-106); Potassium 3.5 mmol/L (3.5-5.1); Protein, Total 7.1 g/dL (6.4-8.2); Sodium Level 141 mmol/L (136-145)
[2024-01-24 08:52] LABS: T4 Free Direct 1.24 ng/dL (0.76-1.46); Thyroid Stim Hormone (TSH) 1.68 uIU/mL (0.358-3.74)
== END | disposition home or self-care (01) ==
LOC: LAB 15:13
PROVIDERS: PCP Internal Medicine; Referring Provider Internal Medicine Endocrinology, Diabetes & Metabolism; Visit Provider Internal Medicine Endocrinology, Diabetes & Metabolism
DX: I10 Essential (primary) hypertension (principal); E03.8 Other specified hypothyroidism; E06.3 Autoimmune thyroiditis
CPT/HCPCS: 36415; 80053; 84439; 84443

== ENCOUNTER → 2024-01-24 | Outpatient (CLI) | payer BC, SELFPAY ==
--- NOTE | 2024-01-24 12:05 | US_ITS ---
STUDY: THYROID ULTRASOUND REASON FOR EXAM: Female, 58 years old. Hypothyroidism TECHNIQUE: Ultrasound evaluation of the thyroid was performed with real-time and static marie-scale imaging. COMPARISON: None. FINDINGS: RIGHT LOBE: The right lobe of the thyroid gland measures 5.6 x 1.9 x 2.6 cm. There is a heterogeneous echotexture. heterogeneous hypodense well-circumscribed nodule noted on the right measures 1.1 x 0.8 x 0.6 cm. A rounded well-circumscribed heterogeneous nodule is also noted measuring 1.2 x 1.2 x 1.1 cm. LEFT LOBE: The left lobe of the thyroid gland measures 4.5 x 2.7 x 2.8 cm. There is a homogeneous echotexture. Heterogeneous well-circumscribed nodule measures 1.1 x 1.1 x 0.9 cm. Well-circumscribed heterogeneous nodule with a hypoechoic halo measures 3.1 x 2.1 x 2.4 cm. It demonstrates increased color blood flow. ISTHMUS: The isthmus measures 3 mm. . The regional lymph nodes are normal. US/Thyroid IMPRESSION: Enlarged multinodular goiter appears stable. Multiple bilateral Nodules appear essentially stable. Biopsy is again recommended of the dominant nodule on the left which appears stable. Electronically Signed: Raymond Celis MD at 17:15 EDT ,
== END | disposition home or self-care (01) ==
LOC: US 12:04
PROVIDERS: PCP Internal Medicine; Referring Provider Surgery; Visit Provider Surgery
DX: E03.8 Other specified hypothyroidism (principal); E06.3 Autoimmune thyroiditis; E04.2 Nontoxic multinodular goiter
CPT/HCPCS: 76536

== ENCOUNTER → 2024-02-24 | Outpatient (CLI) | payer BC, SELFPAY ==
--- NOTE | 2024-02-24 13:59 | ECHOD_ITS ---
Reason For Study: dilated aortic root Procedure This was a 2D Doppler, Color Flow transthoracic echocardiogram. Exam performed in department. Left Ventricle Normal LV size. Left ventricular systolic function is normal. The estimated ejection fraction is 60 %. Normal diastology for age. No regional wall motion abnormalities noted. Right Ventricle Normal RV size. Normal systolic function. Atria The left atrium is mildly enlarged. Normal right atrium. Mitral Valve Bileaflet diffuse mitral valve thickening. Tricuspid Valve Normal tricuspid valve. Aortic Valve Trisinus/trileaflet aortic valve. Pulmonic Valve The pulmonic valve is not well visualized. Great Vessels Normal aortic root. The pulmonary artery is normal size. Inferior vena cava collapse with respiration. Pericardium/Pleural No pericardial effusion. MMode/2D Measurements & Calculations Ao root diam: 3.7 cm LAV(MOD-bp): 76.6 ml LVAd ap4: 31.4 cm2 LAV(MOD-bp) Indexed: 33.2 ml/m2 LVLd ap4: 8.0 cm LAV(MOD-sp2): 92.8 ml EDV(MOD-sp4): 101.9 ml LAV(MOD-sp4): 61.3 ml EDV(sp4-el): 105.0 ml LVAs ap4: 17.4 cm2 LVLs ap4: 6.6 cm ESV(MOD-sp4): 39.0 ml ESV(sp4-el): 39.0 ml EF(MOD-sp4): 61.7 % EF(sp4-el): 62.9 % SV(MOD-sp4): 62.9 ml SV(sp4-el): 66.1 ml LA A4 area: 21.5 cm2 LA dimension(2D): 4.0 cm RA A4 area: 19.7 cm2 TAPSE: 2.8 cm Time Measurements MV dec time: 0.16 sec Doppler Measurements & Calculations MV E max jason: 83.6 cm/sec Lat Peak E' Jason: 11.1 cm/sec Med Peak E' Jason: 7.9 cm/sec MV A max jason: 62.5 cm/sec E/E' lat: 7.6 E/E' med: 10.5 MV E/A: 1.3 MV V2 max: 81.3 cm/sec MV dec slope: 557.9 cm/sec2 Ao V2 max: 132.4 cm/sec MV max P.7 mmHg Ao max P.0 mmHg MV V2 mean: 55.2 cm/sec Ao V2 mean: 91.8 cm/sec MV mean P.4 mmHg Ao mean P.8 mmHg MV V2 VTI: 21.8 cm Ao V2 VTI: 30.9 cm AV (velocity ratio): 0.77 LV V1 max: 103.2 cm/sec PA V2 max: 68.8 cm/sec LV V1 max P.3 mmHg PA V2 mean: 44.4 cm/sec LV V1 mean P.4 mmHg LV V1 mean: 72.7 cm/sec LV V1 VTI: 23.7 cm ECHO/Echo Complete Interpretation Summary Normal LV size. Left ventricular systolic function is normal. The estimated ejection fraction is 60 %. Bileaflet diffuse mitral valve thickening. Ordering Physician: Kisha Pennington Referring Physician: Kisha Pennington Performed By: Shannen Gould RCS
== END | disposition home or self-care (01) ==
PROVIDERS: PCP Internal Medicine; Referring Provider Physician Assistant Medical; Visit Provider Physician Assistant Medical
DX: I77.810 Thoracic aortic ectasia (principal); I34.89 Other nonrheumatic mitral valve disorders
CPT/HCPCS: 93306

== ENCOUNTER → 2024-02-27 | Outpatient (CLI) | payer BC, SELFPAY ==
--- NOTE | 2024-02-27 08:48 | FLU_PTH ---
PATIENT: ANNABELLA JEFFERY LOC: [facility] U#:[id number] AGE/SX: 58/F ROOM: RE02/27/[address]: Dr. Bakari Glesaon MD : 1965 BED: DIS: 02/27/2024 SPEC #: [id number] RECD: 02/27/24 10:56 STATUS: GEENA DONI #: [id number] KAYODE: 02/27/24 08:[address]: Bakari Gleason DEPT: CYTOLOGY RECD BY: Maureen Villegas ENTERED: 02/27/24 12:16 SP TYPE: Fluid OTHR DR: Dr. Esperanza Moreno MD Tissues: A - Thyroid gland, NOS B - Thyroid gland, NOS Procedures: Special Stain Group II Surgery Specimen Level IV Cytospin Fluid HEADER OPERATION: Fine needle aspiration on left thyroid nodule PRE-OP DIAGNOSIS: Multinodular goiter TISSUE SUBMITTED: A- Left thyroid nodule fluid, B- Left thyroid nodule (smears) DIAGNOSIS CYTOLOGY A. Left thyroid nodule fluid, fine needle aspiration (cytospin and cellblock): Consistent with benign follicular/colloid nodule, [place] Category II. Adequate for evaluation. See comment. B. Left thyroid nodule (smears): Non diagnostic specimen, [place] Category I. See comment. CHRIS/ 02/28/24 COMMENT B. The specimen is nondiagnostic due to lack of adequate number of follicular cells. The [place] System for thyroid diagnostic categorization was used in the evaluation of this case. Correlation with clinical, radiologic findings and appropriate follow up are necessary. CYTOLOGY STUDY Slides are reviewed. CYTOLOGY GROSS A. Received is 30 ml of red-cloudy fluid labeled with the patient's name and and designated per the requisition as Left thyroid nodule. Submitted for cytology preparation including cell block. B. Received are 4 smears labeled with the patient's name and designated per the requisition as Left thyroid nodule. Submitted for staining. Mr 02/27/24 TC:5 CPT: 72312n2,77992
== END | disposition home or self-care (01) ==
LOC: LABSPEC 10:57
PROVIDERS: PCP Internal Medicine; Referring Provider Surgery; Visit Provider Surgery
DX: E04.1 Nontoxic single thyroid nodule (principal)
CPT/HCPCS: 88108; 88305; 88313

== ENCOUNTER → 2024-04-10 | Outpatient (CLI) | payer BC, SELFPAY ==
[2024-04-10 13:16] LABS: Anion Gap 3 (5-15); Chloride 103 mmol/L (98-107); Potassium 3.6 mmol/L (3.5-5.1); Sodium Level 139 mmol/L (136-145)
== END | disposition home or self-care (01) ==
PROVIDERS: PCP Internal Medicine; Referring Provider Internal Medicine Pulmonary Disease; Visit Provider Internal Medicine Pulmonary Disease
DX: R06.02 Shortness of breath (principal); R05.9 Cough, unspecified
CPT/HCPCS: 36415; 80051

== ENCOUNTER → 2024-07-03 | Outpatient (CLI) | payer BC, SELFPAY ==
[2024-07-03 09:41] LABS: Erythrocyte Sedimentation Rate 9 mm/hr (0-30)
[2024-07-03 09:50] LABS: D-Dimer Quantitative (DVT/PE) 0.44 FEU/ug/m (0.27-0.49)
--- NOTE | 2024-07-03 10:35 | RAD_ITS ---
STUDY: X-RAY CHEST REASON FOR EXAM: Female, 58 years old. Shortness of breath. TECHNIQUE: Frontal and lateral views of the chest. COMPARISON: None. FINDINGS: The lungs are clear and expanded. There is no demonstrated pleural abnormality. Normal size heart. Normal mediastinum and kendy. Normal visualized pulmonary arteries. Aortic tortuosity. Normal visualized thoracic spine. Normal visualized ribs, clavicles, and shoulders. No abnormality of the visualized soft tissue structures of the upper abdomen. RAD/Chest PA and Lateral IMPRESSION: No active or acute cardiopulmonary disease. Electronically Signed: Josr Petty MD at 9:40 EDT ,
[2024-07-03 10:41] LABS: CPK Total, Creatine Kinase 71 U/L (26-192); CRP 6.84 mg/L (0.0-3.0); LDH 218 U/L (84-246)
[2024-07-04 13:08] LABS: Anti-Centromere B Ab <0.2 AI (0.0-0.9); Anti-Chromatin <0.2 AI (0.0-0.9); Anti-Jo <0.2 AI (0.0-0.9); Anti-Scleroderma-70 AB <0.2 AI (0.0-0.9); Anti-dsDNA Ab <1 IU/mL (0-9); RNP Ab <0.2 AI (0.0-0.9); SJOGREN'S Anti-SS-A test < 0.2 AI (0.0-0.9); SJOGREN'S Anti-SS-B test < 0.2 AI (0.0-0.9); Smith Ab <0.2 AI (0.0-0.9)
[2024-07-05 05:08] LABS: Aldolase 5.1 U/L (3.3-10.3); Cytoplasmic Ab (C-ANCA) <1:20 titer (Neg:<1:20); Perinuclear Ab (P-ANCA) <1:20 titer (Neg:<1:20)
== END | disposition home or self-care (01) ==
LOC: LAB 09:19
PROVIDERS: Referring Provider Internal Medicine Gastroenterology; Visit Provider Internal Medicine Gastroenterology
DX: R06.02 Shortness of breath (principal)
CPT/HCPCS: 36415; 71046; 82085; 82550; 83615; 85379; 85652; 86140; 86225; 86235; 86256

== ENCOUNTER → 2025-09-12 | Outpatient (CLI) | payer BC, SELFPAY ==
--- NOTE | 2025-09-12 07:43 | US_ITS ---
PROCEDURE: ABD LIMITED W/ ELASTOGRAPHY REASON FOR EXAM: FATTY LIVER COMPARISON: January 25, 2023 TECHNIQUE: Procedure Code: [id number] Modality: US Procedure: ABD LIMITED W/ ELASTOGRAPHY Right upper quadrant abdominal ultrasound. Daniel ElastQ Imaging shear wave elastography for non-invasive assessment of liver tissue stiffness. Daniel EPIQ Elite. FINDINGS: LIVER: Size: Enlarged (hepatomegaly) Length: 21.2 cm Echotexture: Diffusely echogenic suggesting fatty infiltration Contour: Normal Lesions: None identified Elastography: EQI Med: 5.4 kPa EQI Med Jason: 1.34 m/s IQR/Med: 13 %* GALLBLADDER: Surgically absent. COMMON BILE DUCT: Normal measuring 6 mm. . PANCREAS: Normal Visualized portions of the right kidney are unremarkable. No right upper quadrant ascites. US/ABD Limited w/ Elastography IMPRESSION: NO TO MILD HEPATIC FIBROSIS Hepatomegaly. Diffuse fatty infiltration of the liver. Status post cholecystectomy. Reference Values: SRU <1.37 m/s (5.7kPa): No to mild fibrosis 1.37 m/s - 2.2 m/s: Moderate to severe fibrosis >2.2 m/s (15kPa): Significant fibrosis / cirrhosis METAVIR Score F2 or higher: 1.34 m/s (5.7kPa) F3 or higher: 1.55 m/s (7.3kPa) F4: 1.80 m/s (10kPa) * If the IQR/Med is >30%, the variance in the measurements is a large and the a ccuracy of the measurement may be in question. Reading Location: [id number]
--- OUTSIDE RECORDS SUMMARY | 2025-09-12 07:47 | XMS RPT_ITS | CCD ---
Author Organization [facility] Care Team Providers Care Granulator Tender Name Role Phone LutzaT Unavailable Unavailable Unavailable, Family Physician Unavailable Un available Unavailable, Family Physician Unavailable Un available Somasundaram, Meyyappan Unavailable Unavaila ble Unavailable, Family Physician Unavailable Un available Unavailable, Family Physician Unavailable Un available Family Physician Unavailable Unavailable Ingrid vailable [place], Matias H Unavailable Unavailable [place], Matias H Unavailable Unavailable ZARCO, NGUYỄN C Unavailable Unavailable ZARCO, NGUYỄN C Unavailable Unavailable Unknown, Referring Provider Unavailable Unav ailable William DO, Matias H Primary Care Provider [phone] Dr. Kendall Curry Primary Care Provider [phone] Dr. Kendall Curry Referring Provider [phone] Flako FORGING MACHINE OPERATOR, FORGING MACHINE OPERATOR-C Omaira Lopez Attending Provider [phone] Dr. Joyce Kelley Attending Provider [place], [place] Rayne Attending Provider [facility] Dr. Ari Howard Referring Provider Dr. Erma Arndt Attending Provider [phone] Dr. Kendall Curry Attending Provider [phone] William DO, Matias H Primary Care Provider [phone] Dr. Kendall Curry Primary Care Provider [phone] Dr. Kendall Curry Attending Provider [phone] Dr. Kendall Curry Referring Provider [phone] Flako FORGING MACHINE OPERATOR, FORGING MACHINE OPERATOR-C Omaira Lopez Attending Provider [phone] Dr. Bakari Gleason Attending Provider Esperanza Moreno MD Unavailable Jennifer Lombardi LPN Unavailable Unavailable Esperanza Moreno MD Attending Unavailable Esperanza Moreno MD Consulting Unavailable Dr. Kendall Curry Primary Care Provider [phone] Dr. Kendall Curry Attending Provider [phone] Dr. Kendall Curry Referring Provider [phone] Flako FORGING MACHINE OPERATOR, FORGING MACHINE OPERATOR-C Omaira Lopez Attending Provider [phone] Dr. Bakari Gleason Attending Provider Dr. Devin Fuentes Attending Provider Gorge MURRAY, [place] Kisha Lopez Attending Provider Monster LANGSTON, Kayela Unavailable Unavailable William DOMatias H Primary Care Provider Liudmila Mendez MA Unavailable Unavailable Dr. Kendall Curry Referring Provider [phone] Dr. Devin Fuentes Attending Provider MD Esperanza Meneses Primary Care Provider Unava ilable Dr. Kendall Curry Primary Care Provider [phone] Dr. Keny Gomez Attending Provider [phone] Dr. Erma Arndt Attending Provider [phone] Dr. Esperanza Moreno Primary Care Provider Dr. Joyce Kelley Attending Provider Dr. Esperanza Moreno Referring Provider Dr. Kendall Curry Referring Provider [phone] Dr. Devin Fuentes Attending Provider MD Esperanza Meneses Primary Care Provider Unava ilDr. Kendall Ureña Primary Care Provider [phone] Dr. Keny Gomez Attending Provider [phone] Dr. Erma Arndt Attending Provider [phone] Dr. Esperanza Moreno Primary Care Provider Dr. Joyce Kelley Attending Provider Dr. Esperanza Moreno Referring Provider MD Esperanza Meneses Referring Provider Unavaila [facility] Dr. Keny Gomez Attending Provider Dr. Esperanza Moreno Primary Care Provider Dr. Esperanza Moreno Referring Provider Gorge MURRAY, [place] Kisha Lopez Attending Provider Dr. Devin Fuentes Attending Provider [phone] Adolfo Barrow Attending Provider Dr. Bakari Gleason Attending Provider [phone] Unavailable Primary Care Provider Unavailabl e William DO, Matias H Primary Care Provider Esperanza Moreno MD Primary Care Provider ANTOINETTE CARTER Referring Unavailable WILLIAM, MATIAS H Primary Care Unavailable WILLIAM, MATIAS H Primary Care Unavailable ANTOINETTE CARTER Referring Unavailable ANTOINETTE CARTER Attending Unavailable WILLIAM, MATIAS H Primary Care Unavailable ANTOINETTE CARTER Referring Unavailable Esperanza Moreno MD Primary Care Provider Keila THOMAS, Sudhir Primary Care Provider Ari Lundberg MD Primary Care Provider [phone] Mony MCNAMARA, Vitaly Unavailable Keny Gomez Unavailable Eliu Maldonado MD Unavailable Kisha Echavarria Unavailable Devin Fuentes MD Unavailable Madonna MCNAMARA, [place] Unavailable Bakari Gleason MD Unavailable Omi Krueger MD Unavailable Sudhir Pedraza DO Primary Care Provider SELF, SELF Referring Unavailable DEMETRI CARTAGENA Attending Unavailable SELF, SELF Referring Unavailable KEILA, SUDHIR Primary Care Unavailable Eliu Maldonado MD Unavailable Kisha Echavarria Unavailable [phone] ELIU MALDONADO Referring Unavailable ELIU MALDONADO Attending Unavailable KEILA, SUDHIR Primary Care Unavailable MANUEL ELIU Referring Unavailable JACKSONELIU Attending Unavailable KEILA, SUDHIR Primary Care Unavailable KEILA, SUDHIR Primary Care Unavailable NILOSUNITA Attending Unavailable SUINTA WHITE Referring Unavailable OTILIOELIU Referring Unavailable KEILA, SUDHIR Attending Unavailable KEILA, SUDHIR Primary Care Unavailable ELIU MALDONADO Attending Unavailable KEILA, SUDHIR Primary Care Unavailable KEILA, SUDHIR Primary Care Unavailable KEILA, SUDHIR Referring Unavailable KEILA, SUDHIR Attending Unavailable JEFF BOYKIN Attending Unavailable KEILA, SUDHIR Primary Care Unavailable ASHLEY ALEXANDER Attending Unavailable KEILA, SUDHIR Primary Care Unavailable KEILA, SUDHIR Referring Unavailable KEILA, SUDHIR Primary Care Unavailable KEILA, SUDHIR Attending Unavailable ELIU JACKSON Attending Unavailable ELIU JACKSON Referring Unavailable KEILA, SUDHIR Primary Care Unavailable KEILA, SUDHIR Primary Care Unavailable GULOTTAMICHELLEA Attending Unavailable GULOTTA, VONNIE Referring Unavailable KEILA, SUDHIR Primary Care Unavailable KEILA, SUDHIR Attending Unavailable ELIU JACKSON Attending Unavailable KEILA, SUDHIR Primary Care Unavailable KEILA, SUDHIR Referring Unavailable OTILIO ELIU Attending Unavailable KEILA, SUDHIR Primary Care Unavailable OTILIOELIU VALDEZ Attending Unavailable KEILA, SUDHIR Primary Care Unavailable KEILA, SUDHIR Attending Unavailable KEILA, SUDHIR Primary Care Unavailable KEILA, SUDHIR Referring Unavailable KEILA, SUDHIR Attending Unavailable KEILA, SUDHIR Primary Care Unavailable KEILA, SUDHIR Primary Care Unavailable KEILA, SUDHIR Referring Unavailable KEILA, SUDHIR Attending Unavailable KEILA, SUDHIR Primary Care Unavailable GULOTTA, VONNIE Referring Unavailable GULOTTA, VONNIE Attending Unavailable KEILA, SUDHIR Primary Care Unavailable GULOTTA, VONNIE Referring Unavailable GULOTTA, VONNIE Attending Unavailable YEROPOLI, SEVASTI Attending Unavailable KEILA, SUDHIR Primary Care Unavailable KEILA, SUDHIR Primary Care Unavailable KEILA, SUDHIR Attending Unavailable OTILIO, ELIU Attending Unavailable OTILIO, ELIU Referring Unavailable KEILA, SUDHIR Primary Care Unavailable OTILIO, ELIU Attending Unavailable KEILA, SUDHIR Primary Care Unavailable KEILA, SUDHIR Attending Unavailable KEILA, SUDHIR Primary Care Unavailable YEROPOLI, SEVASTI Referring Unavailable KEILA, SDUHIR Primary Care Unavailable YEROPOLI, SEVASTI Attending Unavailable KEILA, SUDHIR Primary Care Unavailable KEILA, SUDHIR Attending Unavailable KEILA, SUDHIR Primary Care Unavailable KEILA, SUDHIR Referring Unavailable Town Doctor, Out of Primary Care Unavailable Town Doctor, Out of Referring Unavailable IsckarJoyce reece Attending Unavailable Town Doctor, Out of Primary Care Unavailable Friend, Keny Attending Unavailable Friend, Keny Referring Unavailable Ari Lundberg Primary Care Unavailable Joyce Kelley Attending Unavailable IsckarJoyce reece Referring Unavailable Friend, Keny Attending Unavailable Town Doctor, Out of Primary Care Unavailable Friend, Keny Attending Unavailable Town Doctor, Out of Primary Care Unavailable Town Doctor, Out of Primary Care Unavailable Town Doctor, Out of Referring Unavailable Friend, Keny Attending Unavailable Town Doctor, Out of Primary Care Physician Unava ilable Town Doctor, Out of Referring Provider Unavailab le Friend Dr. Keny THOMAS Attending Physician Dr. Joyce Kelley MD Attending Physician Dr. Ari Lundberg MD Primary Care Physician Dr. Joyce Kelley MD Referring Provider Allergies Allergy Classification Reported Allergen(s) Allergy Type Date of Onset Reaction(s) Facility Proton Pump Inhibitors (5 sources) Esomeprazole Drug Allergy 08-24-20 21 Other: See Comments, Other [facility] Work Phone: Sulfamethoxazole / Trimethoprim (3 sources) Sulfamethoxazole / Trimethoprim Drug Allergy 03-21-20 18 Other: See Comments, Unknown, Other [facility] Work Phone: (20 sources) sulfamethoxazole / trimethoprim; Translations: [SULFAMETHOXAZOLE-T RIMETHOPRIM] Drug Allergy 03-21-20 18 Other: See Comments, Unknown, Other [facility] Other [facility] (1 source) OTHER; Translations: [OTHER] Propensity to adverse reactions (disorder) 11-04-19 04 [facility] Other [facility] (9 sources) Esomeprazole; Translations: [ESOMEPRAZOLE] Drug Allergy 08-24-20 Other: See Comments [facility] Work Phone: (15 sources) pantoprazole; Translations: [PANTOPRAZOLE] Drug Allergy 08-24-20 Other: See Comments [facility] Work Phone: (20 sources) Trimethoprim Drug Allergy 05-07-20 22 Dizziness [facility] (9 sources) Seasonal Allergies: Uncoded; Translations: [Seasonal Allergies: Uncoded] Allergy to substance 08-16-20 23 Sinus congestion [facility] (20 sources) Esomeprazole Drug Allergy 08-24-20 21 Other [facility] (20 sources) Seasonal allergy Propensity to adverse reactions 05-16-20 24 [facility] (1 source) Sulfonamides (Antibiotic) Propensity to adverse reactions to drug 05-28-20 Rash [facility] (1 source) *Seasonal Propensity to adverse reactions to substance 05-28-20 [facility] (1 source) Trimethoprim Drug Allergy 08-13-20 25 [facility] Repository Medications Current Medications Medication Drug Class(es) Dates Sig (Normalized) Sig (Original) B Complex capsule (1 source) take 1 capsule by mouth once daily B Complex capsule Take 1 capsule by mouth daily. Active B Complex-Folic Acid (B Complex Vitamins, w/ FA,) capsule (7 sources) take 1 capsule by mouth once daily B Complex-Folic Acid (B Complex Vitamins, w/ FA,) capsule Take 1 capsule by mouth daily. Active cholecalciferol 0.125 mg oral capsule (20 sources) Vitamin D Start: 04-24-2024 take 1 capsule by mouth once daily Start: 01-26-2024 End: 04-18-2024 take 1 capsule by mouth once daily Cholecalciferol (Vitamin D3) 25 mcg (1,000 unit) capsule Discontinued 5000 U PO DAILY January 26, 2024 12:01pm April 18, 2024 7:20am Start: 05-05-2023 take 1 capsule by mo [facility] once daily cholecalciferol (vitamin D3) 125 mcg (5,000 unit) oral capsule 1 (one) capsule daily for 0 days Quantity: 30 {Capsule} Refills: 0 Ordered: 21-Jun-2023 Andrea AKINSLiudmila Start : 05-May-2023 Active Start: 12-23-2022 End: 01-26-2024 take 1 capsule by mouth once daily Cholecalciferol (Vitamin D3) 25 mcg (1,000 unit) capsule Discontinued 25 ug PO DAILY December 23, 2022 12:00am January 26, 2024 12:03pm Start: 09-14-2021 End: 10-12-2021 take 1 capsule by mouth once daily Cholecalciferol (Vitamin D3) 125 mcg (5,000 unit) capsule Discontinued 125 ug PO DAILY September 14, 2021 12:00am October 12, 2021 8:21am take 1 capsule by [facility] in the morning cholecalciferol (Vitamin D-3) 125 MCG (5000 UT) capsule Take 5,000 Units by mouth in the morning. Vitamin C and Zinc combo. Active DIGESTIVE ENZYMES PO (1 source) take 1 capsule by mouth once daily DIGESTIVE ENZYMES PO Take 1 capsule by mouth daily. Active 84 hr estradiol 0.66010 mg/hr transdermal system (2 sources) Estrogen Start: 08-13-2025 apply 1 dose transdermal route two times weekly, then apply 1 dose transdermal route every hour INV VITAMIN D3 5000 UNITS CAPSULE (IRB 19-1548) (10 sources) take 1 capsule by mouth once daily INV VITAMIN D3 5000 UNITS CAPSULE (IRB 19-1548) Take 5,000 Units by mouth once daily. For Investigational Drug Use Only. PI: Kisha Negrete, PhD. Take one capsule by mouth daily for 3 months prior to surgery and 3 months after surgery. Active take 1 capsule by mouth once danie ly INV VITAMIN D3 5000 UNITS CAPSULE (IRB 19- 1548) Take 5,000 Units by mouth once daily. For Investigational Drug Use Only. PI: Kisha Negrete, PhD. Take one capsule by mouth daily for 3 months prior to surgery and 3 months after surgery. 0 Active Comment on above: Take 5,000 Units by mouth once daily. For Investigational Drug Use Only. PI: Kisha Negrete, PhD. Take one capsule by mouth daily for 3 months prior to surgery and 3 months after surgery. ketoconazole 20 mg/ml topical cream (14 sources) Azole Antifungal Start: ketoconazole (NIZOral) 2 % cream APPLY A THIN LAYER TO THE AFFECTED AREAS UNDER BREASTS AND GROIN TWICE A DAY NEEDED. 03/28/2025 Active 24 hr metFORMIN hydrochloride 500 mg extended release oral tablet (20 sources) Biguanide Start: 024 End: take 2 tablets by mouth once daily at breakfast metFORMIN XR (Glucophage-XR) 500 MG 24 hr tablet Take 2 tablets (1,000 mg) by mouth daily (with breakfast). 01/15/2025 01/15/2026 Active Start: 08-06-2024 take 1 tablet by zoraida th once daily Start: 06-12-2024 End: 11-28-2025 take 1 tablet by mouth once daily at breakfast metFORMIN XR (Glucophage-XR) 500 MG 24 hr tablet Take 1 tablet (500 mg) by mouth daily (with breakfast). 90 tablet 3 11/28/2024 01/15/2025 Discontinued (Reorder) mometasone furoate 0.05 mg/actuat metered dose nasal spray (2 sources) Corticosteroid Start: 04-24-2024 take 50 ug nasal route once daily Multiple Vitamins-Minerals (Multivitamin w/ minerals, THERAPEUTIC-M,) tablet (1 source) take 1 tablet by mouth once daily Multiple Vitamins-Minerals (Multivitamin w/ minerals, THERAPEUTIC-M,) tablet Take 1 tablet by mouth daily. Active Multiple Vitamins-Minerals (Therapeutic-M) tablet (7 sources) take 1 tablet by mouth once daily Multiple Vitamins-Minerals (Therapeutic-M) tablet Take 1 tablet by mouth daily. Active MULTIVITAMIN ORAL (10 sources) MULTIVITAMIN ORA L Take by mouth. Active MULTIVITAMIN ORA L Take by mouth. 0 Active Comment on above: Take by mouth. Multivitamin preparation (18 sources) Start: 08-16-2023 take 1 tablet by mouth once daily Multivitamin Active 1 TABLET PO DAILY August 15, 2023 11:00pm Start: 10-24-2023 take 1 tablet by zoraida th once daily Multivitamin Active 1 TABLET PO DAILY August 16, 2023 12:00am Start: 12-23-2021 End: 06-14-2023 take 1 tablet by mouth once daily Multivitamin Discontinued 1 TABLET PO DAILY December 23, 2021 12:00am June 14, 2023 12:41pm Start: 12-23-2021 End: 06-14-2023 take 1 tablet by mouth once daily Multivitamin Discontinued 1 TABLET PO DAILY December 23, 2021 1:00am June 14, 2023 1:41pm Start: 12-23-2021 take 1 tablet by zoraida th once daily Multivitamin Active 1 TABLET PO DAILY December 23, 2021 12:00am Start: 12-23-2021 take 1 tablet by zoraida th once daily Multivitamin Active 1 TABLET PO DAILY December 23, 2021 1:00am Multivitamin tablet (4 sources) Start: 08-16-2023 Start: 12-23-2021 End: 06-14-2023 Multivitamin tablet Disconti nued 1 {tbl} PO DAILY December 23, 2021 12:00am June 14, 2023 12:41pm NON FORMULARY (20 sources) NON FORMULARY daily. SUPER DIGESTIVE ENZYME Active omeprazole 20 mg delayed release oral capsule (20 sources) Proton Pump Inhibitor Start: 08-13-2025 take 1 capsule by mouth once daily Start: 12-10-2022 End: 12-23-2022 take 1 capsule by mouth once daily Omeprazole 20 mg capsule,delayed release(DR/EC) Discontinued 20 mg PO DAILY December 10, 2022 12:00am December 23, 2022 9:02am End: 09-06-2024 take 1 tablet by mouth once daily Omeprazole 20 MG tablet delayed-release Take 20 mg by mouth daily. 09/06/2024 Discontinued (Med list cleanup) oxymetazoline hydrochloride 0.5 mg/ml nasal spray (20 sources) oxymetazoline (N moraima Relief) 0.05 % nasal spray Administer 2 sprays into affected nostril(s) twice a day. Afrin Active oxymetazoline HC l (AFRIN NASAL) Use 1 [place] in the nose daily at bedtime. Active oxymetazoline HC l (AFRIN NASAL) Use 1 [place] in the nose daily at bedtime. 0 Active Comment on above: Use 1 [place] in the n ose daily at bedtime. Probiotic Product (PROBIOTIC DAILY PO) (11 sources) Probiotic Produc t (PROBIOTIC DAILY PO) Take by mouth daily. Active Vitamin B Complex (10 sources) Start: 01-26-2024 take 1 capsule by mouth once daily Vitamin B Complex Active 1 CAP PO DAILY January 26, 2024 1:02pm Start: 08-16-2023 End: 01-26-2024 take 1 capsule by mouth once daily Vitamin B Complex Discontinued 1 CAP PO DAILY August 16, 2023 12:00am January 26, 2024 1:03pm Start: 08-16-2023 take 1 capsule by mo uth once daily Vitamin B Complex Active 1 CAP PO DAILY August 15, 2023 11:00pm Start: 08-16-2023 take 1 capsule by mo uth once daily Vitamin B Complex Active 1 CAP PO DAILY August 16, 2023 12:00am Completed/Discontinued Medications Medication Drug Class(es) Dates Sig (Normalized) Sig (Original) cephalexin 500 mg oral capsule (14 sources) Cephalosporin Antibacterial Start: 05-18-2022 End: 05-25-2022 take 1 capsule by mouth three times daily Cephalexin 500 mg capsule Discontinued 500 mg PO THREE TIMES A DAY 21 7 0 May 17, 2022 11:00pm May 23, 2022 11:00pm May 24, 2022 11:03pm Nonalcoholic steatohepatitis (HUGGINS) Nonalcoholic steatohepatitis (HUGGINS) space evenly during waking hours cetirizine hydrochloride 10 mg oral tablet (5 sources) Histamine-1 Receptor Antagonist Start: 04-24-2024 End: 08-13-2025 take 1 tablet by mouth once daily as needed Cetirizine (Zyrtec) 10 mg tablet Discontinued 10 mg PO DAILY as needed April 23, 2024 11:00pm August 13, 2025 10:56am cyclobenzaprine hydrochloride 5 mg oral tablet (14 sources) Muscle Relaxant Start: 05-11-2022 End: 05-18-2022 take 1 tablet by mouth twice daily as needed for muscle spasms Cyclobenzaprine 5 mg tablet Discontinued 5 mg PO TWICE A DAY as needed for muscle spasm 20 0 May 10, 2022 11:00pm May 18, 2022 12:59pm Digestive Enzymes (12 sources) Start: 12-23-2021 End: 05-18-2022 take 1 capsule by mouth once daily at mealtime Digestive Enzymes Discontinued 1 CAP PO DAILY December 23, 2021 12:00am May 18, 2022 12:59pm administer with food; swallow whole; do not crush/chew/dissolve/ break/cut Start: 12-23-2021 End: 05-18-2022 take 1 capsule by mouth once daily at mealtime Digestive Enzymes Discontinued 1 CAP PO DAILY December 23, 2021 1:00am May 18, 2022 1:59pm administer with food; swallow whole; do not crush/chew/dissolve/break/cut Digestive Enzymes capsule (2 sources) Start: 12-23-2021 End: 05-18-2022 take 1 capsule by mouth once daily at mealtime Digestive Enzymes capsule Discontinued 1 NMA PO DAILY as needed December 23, 2021 12:00am May 18, 2022 12:59pm administer with food; swallow whole; do not crush/chew/dissolve/break/cut doxycycline hyclate 100 mg oral capsule (2 sources) Tetracycline-clas s Drug Start: 04-18-2024 End: 04-24-2024 take 1 capsule by mouth once daily Doxycycline Hyclate 100 mg capsule Discontinued 100 mg PO DAILY April 17, 2024 11:00pm April 24, 2024 12:05pm F18 FDG radio-isotope injection 12 millicurie (2 sources) Start: 10-19-2024 End: 10-19-2024 12 millicurie, IntraVENous, Once, On Tue10/19/24 at 0930, For 1 dose famotidine 20 mg oral tablet (1 source) Histamine-2 Receptor Antagonist Start: 08-24-2021 End: 10-05-2021 take 1 tablet by mouth once daily famotidine (PEPCID) 20 mg tablet Take 1 tablet by mouth once daily. 90 tablet 3 08/24/2021 10/05/2021 Discontinued 60 actuat fluticasone propionate 0.1 mg/actuat dry powder inhaler (20 sources) Corticosteroid Start: 04-12-2024 End: 05-16-2024 Fluticasone Propionate, Inha l, (Fluticasone Propionate Diskus) 100 MCG/ACT aerosol powder 04/12/2024 05/16/2024 Discontinued fluticasone (Stewart nase Allergy Relief) 50 MCG/ACT nasal spray Every 24 hours. Active End: 07-11-2024 take 1 puff(s) by inhalation in the morning fluticasone (Flovent) 110 MCG/ACT inhaler Inhale 1 puff in the morning and 1 puff in the evening. Rinse mouth with water after use to reduce aftertaste and incidence of candidiasis. Do not swallow.. 07/11/2024 Discontinued (Med list cleanup) gadobutrol (Gadavist) injection 12 mL (2 sources) Start: 05-17-2024 End: 05-17-2024 take 12 mL intravenously once as needed 12 mL, IntraVENous, IMG once PRN, contrast, Starting on Emilee 05/17/24 at 0740, For 1 dose gadopiclenol (Vueway) injection 12.5 mL (2 sources) Start: 06-12-2025 End: 06-12-2025 take 12.5 mL intravenously once as needed 12.5 mL, IntraVENous, IMG once PRN, contrast, Starting on Tue06/12/25 at 0903, For 1 dose Homocysteine Formula 0.8-50-100 mg-mg-mcg oral tablet (20 sources) Start: 01-31-2023 End: 05-05-2023 take 1 tablet by mouth once daily Homocysteine Formula 0.8-50-100 mg-mg-mcg oral tablet 1 Tablet daily for 0 days Quantity: 30 {Tablet} Refills: 0 Ordered: 05-May-2023 Jennifer Lombardi LPN Start : 31-Jan-2023 End : 05-May-2023 Inactive Start: 01-31-2023 take 1 tablet by zoraida once daily Homocysteine Formula 0.8-50-100 mg-mg-mcg oral tablet 1 Tablet daily for 0 days Quantity: 30 {Tablet} Refills: 0 Ordered: 31-Jan-2023 Tiffanie MCNAMARA, Esperanza Moreno MD, Esperanza Lopez Start : 31-Jan-2023 Active hydroCHLOROthiazide 12.5 mg oral tablet (20 sources) Thiazide Diuretic Start: 11-24-2021 End: 02-19-2022 take 1 tablet by mouth once daily Hydrochlorothiazide 12.5 mg tablet Discontinued 12.5 mg PO DAILY 90 0 February 17, 2022 7:27am February 19, 2022 1:48pm Start: 09-14-2021 End: 10-28-2021 take 1 tablet by mouth once daily Hydrochlorothiazide 12.5 mg tablet Discontinued 12.5 mg PO DAILY September 14, 2021 12:00am October 28, 2021 9:03am Start: 08-18-2021 End: 11-28-2025 take 1 capsule by mouth once daily hydroCHLOROthiazide (Microzide) 12.5 MG capsule Take 1 capsule (12.5 mg) by mouth daily. 90 capsule 3 11/28/2024 11/28/2025 Active Comment on above: Take 1 capsule by mo ut once daily. hyoscyamine sulfate 0.125 mg sublingual tablet (14 sources) Start: End: take 1 tablet under the tongue every eight hours as needed for muscle spasms Hyoscyamine Sulfate 0.125 mg tablet, sublingual Discontinued 0.125 mg SL Q8H as needed for intestinal spasm 30 0 April 21, 2022 11:00pm June 14, 2023 12:40pm ibuprofen 200 mg oral tablet (20 sources) Nonsteroidal Anti-inflammatory Drug End: take 1 tablet by mouth every six hours as needed ibuprofen 200 MG tablet Take 200 mg by mouth every 6 hours as needed. 05/15/2025 Discontinued (Other) iopamidol (Isovue-370) 76 % injection 75 mL (2 sources) Start: End: take 75 mL intravenously once as needed 75 mL, IntraVENous, IMG once PRN, contrast, Starting on Tue09/07/24 at 1417, For 1 dose levothyroxine sodium 0.112 mg oral capsule (20 sources) l-Thyroxine Start: End: Levothyroxine (Tirosint) 112 mcg capsule Discontinued 100 ug PO DAILY April 18, 2024 7:19am August 06, 2024 7:05am Start: 02-13-2024 End: 05-16-2024 take 1 capsule by mouth in the morning Tirosint 100 MCG capsule TAKE ONE CAPSULE BY MOUTH FIRST THING IN THE MORNING. AVOID OTHER SUPPLEMENTS FOR 1 HOUR 02/13/2024 05/16/2024 Discontinued Start: 07-07-2023 End: 12-24-2025 take 1 capsule by mouth once daily Levothyroxine (Tirosint) 112 mcg capsule Discontinued 112 ug PO DAILY 90 3 July 11, 2023 11:44am April 18, 2024 7:20am Start: 05-09-2023 End: 07-07-2023 take 2 capsules by mouth once daily Levothyroxine (Tirosint) 88 mcg capsule Discontinued 88 ug PO .qd, 2 on Sundays 90 1 May 09, 2023 6:22am July 07, 2023 6:31am Start: 12-21-2022 End: 05-09-2023 take 1 capsule by mouth once daily Levothyroxine (Tirosint) 88 mcg capsule Discontinued 88 ug PO DAILY 90 1 April 15, 2023 9:37am May 09, 2023 6:22am Start: 12-23-2021 End: 12-21-2022 take 1 capsule by mouth once daily Levothyroxine (Tirosint) 75 mcg capsule Discontinued 75 ug PO DAILY 90 2 August 23, 2022 9:19am December 21, 2022 8:12am Start: 11-05-2021 End: 12-23-2021 take 1 capsule by mouth once daily Levothyroxine (Tirosint) 50 mcg capsule Discontinued 50 ug PO DAILY 30 0 November 05, 2021 12:00am December 23, 2021 9:59am Start: 10-28-2021 End: 11-05-2021 Levothyroxine (Tirosint) 75 mcg capsule Discontinued 50 ug PO DAILY October 28, 2021 9:03am November 05, 2021 7:45am Start: 10-12-2021 End: 10-28-2021 Levothyroxine (Tirosint) 75 mcg capsule Discontinued 25 ug PO DAILY October 12, 2021 10:59am October 28, 2021 9:04am Start: 10-02-2021 End: 10-12-2021 take 1 capsule by mouth once daily Levothyroxine (Tirosint) 75 mcg capsule Discontinued 75 ug PO DAILY 30 6 October 02, 2021 12:00am October 12, 2021 11:00am Start: 09-14-2021 End: 10-02-2021 take 1 capsule by mouth once daily Levothyroxine 50 mcg capsule Discontinued 50 ug PO DAILY September 14, 2021 12:00am October 02, 2021 2:20pm Start: 07-10-2021 take 1 tablet by zoraida th once daily levothyroxine (SYNTHROID) 50 mcg tablet Indications: Acquired hypothyroidism Take 1 tablet by mouth once daily. 90 tablet 3 07/10/2021 Active take 1 ug by mouth e very other day Tirosint 75 mcg oral capsule qod (75 mcg) Active take 1 ug by mouth e very other day Tirosint 88 mcg oral capsule qod (88 mcg) Active Comment on above: Take 1 tablet by zoraida th once daily. 10 ml lidocaine hydrochloride 10 mg/ml injection (2 sources) Antiarrhythmic, Amide Local Anesthetic Start: 02-20-20 End: 02-20-20 As needed, Starting on Tue02/19/25 at 1312, Intraprocedure loratadine 10 mg oral tablet (8 sources) End: 07-11-20 take 1 tablet by mouth once daily loratadine (Claritin) 10 MG tablet Take 10 mg by mouth daily. Seasonal 07/11/2024 Discontinued (Med list cleanup) magnesium oxide 250 mg oral tablet (20 sources) Start: 08-16-20 End: 04-18-20 take 1 tablet by mouth once daily as needed Magnesium Oxide 250 mg magnesium tablet Discontinued 250 mg PO DAILY as needed January 26, 2024 12:02pm April 18, 2024 7:20am Start: 09-14-2021 End: 10-12-2021 take 1 tablet by mouth once daily Magnesium Oxide 250 mg magnesium tablet Discontinued 250 mg PO DAILY September 14, 2021 12:00am October 12, 2021 8:20am Start: 08-24-2021 End: 10-05-2021 take 1 capsule by mouth once daily at bedtime magnesium oxide 400 mg magnesium cap Take 1 capsule by mouth daily at bedtime. 08/24/2021 10/05/2021 Discontinued Multiple Vitamin (multivitamin) tablet (8 sources) End: 07-11-2024 take 1 tablet by mouth once daily Multiple Vitamin (multivitamin) tablet Take 1 tablet by mouth daily. 07/11/2024 Discontinued (Med list cleanup) take 1 tablet by mouth once dani y Multiple Vitamin (multivitamin) tablet Take 1 tablet by mouth daily. Active nitrofurantoin, macrocrystals 25 mg / nitrofurantoin, monohydrate 75 mg oral capsule (14 sources) Nitrofuran Antibacterial Start: 05-04-2022 End: 05-07-2022 Nitrofurantoin Monohyd/M-Cryst 100 mg capsule Discontinued NMA PO May 03, 2022 11:00pm May 07, 2022 10:04am Start: 05-04-2022 End: 05-07-2022 Nitrofurantoin Monohyd/M-Cry st Discontinued CAP PO May 04, 2022 12:00am May 07, 2022 11:04am nystatin 100 unt/mg topical powder (1 source) Polyene Antifungal Start: 07-01-2021 End: 10-05-2021 nystatin (MYCOSTATIN) powder APPLY 1 (ONE) application TO THE AFFECTED AREA(S) TWICE DAILY FOR 7 DAYS 07/01/2021 10/05/2021 Discontinued omeprazole 20 mg / sodium bicarbonate 1100 mg oral capsule (20 sources) Proton Pump Inhibitor Start: 12-23-2022 End: 08-13-2025 Omeprazole-Sodium Bicarbonate (Zegerid) 20-1.1 mg-gram capsule Discontinued 1 NMA PO DAILY December 23, 2022 12:00am August 13, 2025 10:57am Start: 10-21-2021 End: 12-10-2022 Omeprazole-Sodium Bicarbonat e (Zegerid) 20-1.1 mg-gram capsule Discontinued 1 NMA PO DAILY 90 3 August 09, 2022 4:32pm December 10, 2022 9:18am phentermine hydrochloride 15 mg oral capsule (6 sources) Sympathomimetic Amine Anorectic Start: 03-21-2024 End: 04-24-2024 take 2 capsules by mouth once daily 2 hour(s) after breakfast Phentermine 15 mg capsule Discontinued 30 mg PO DAILY 30 3 March 21, 2024 10:16am April 24, 2024 12:05pm must administer 2 hours after breakfast Start: 03-20-2024 End: 03-20-2024 take 1 capsule by mouth once daily 30 minutes after breakfast Phentermine 37.5 mg capsule Discontinued 37.5 mg PO DAILY 30 3 March 19, 2024 11:00pm March 20, 2024 2:48pm must administer 30 minutes before or 1-2 hours after breakfast Start: 03-20-2024 End: 03-21-2024 take 1 capsule by mouth once daily 2 hour(s) after breakfast Phentermine 15 mg capsule Discontinued 15 mg PO DAILY 30 0 March 19, 2024 11:00pm March 21, 2024 10:17am must administer 2 hours after breakfast sucralfate 100 mg/ml oral suspension (20 sources) Aluminum Complex Start: 01-14-2022 End: 07-11-2024 take 1 mL by mouth three times daily Sucralfate 100 mg/mL suspension Discontinued 10 mL PO THREE TIMES A DAY 900 30 0 October 27, 2023 3:48pm November 25, 2023 12:00am November 26, 2023 12:38am Start: 09-14-2021 End: 10-12-2021 take 1 mL by mouth twice daily Sucralfate (Carafate) 1 00 mg/mL suspension Discontinued 10 mL PO TWICE A DAY September 14, 2021 12:00am October 12, 2021 8:20am Start: 07-20-2021 End: 10-18-2021 take 1 g by mouth every twenty-four hours as needed sucralfate (CARAFATE) 100 mg/mL suspension Take 10 mL by mouth at bedtime as needed. 900 mL 1 07/20/2021 10/18/2021 triamcinolone acetonide 1 mg/ml topical cream (20 sources) Corticosteroid Start: 04-18-2024 End: 04-24-2024 Triamcinolone Acetonide 0.1 % cream Discontinued 1 NMA TOPICAL DAILY April 17, 2024 11:00pm April 24, 2024 12:05pm Start: 05-13-2021 triamcinolone acetonide (KENALOG) 0.1 % cream Apply to affected areas of breasts twice a day for up to two weeks 05/13/2021 Active triamcinolone ac etonide (NASACORT NASAL) Use 1 [place] in the nose daily at bedtime. Active take 2 spray(s) nasa l route once daily Triamcinolone Acetonide (NASACORT AQ NA) Administer 2 sprays into each nostril Nightly. Active Triamcinolone Ac etonide (NASACORT AQ NA) Active triamcinolone ac etonide (NASACORT NASAL) Use 1 [place] in the nose daily at bedtime. 0 Active Comment on above: Use 1 [place] in the n ose daily at bedtime. Apply to affected ar eas of breasts twice a day for up to two weeks ursodiol 300 mg oral capsule (20 sources) Bile Acid Start: 12-08-2021 End: 11-28-2024 take 1 capsule by mouth twice daily Ursodiol 300 mg capsule Discontinued 300 mg PO TWICE A DAY 180 3 February 04, 2023 8:16am July 03, 2024 8:42am Start: 10-28-2021 End: 12-08-2021 take 1 capsule by mouth once daily Ursodiol 300 mg capsule Discontinued 300 mg PO DAILY October 28, 2021 12:00am December 08, 2021 1:34pm Comment on above: for HUGGINS Vit B Comp With C-Calcium Carb (8 sources) Start: 12-23-2022 End: 06-14-2023 take 1 tablet by mouth once daily Vit B Comp With C-Calcium Carb Discontinued 1 TABLET PO DAILY December 23, 2022 12:00am June 14, 2023 12:40pm Start: 12-23-2022 End: 06-14-2023 take 1 tablet by mouth once daily Vit B Comp With C-Calcium Carb Discontinued 1 TABLET PO DAILY December 23, 2022 1:00am June 14, 2023 1:40pm Start: 12-23-2022 take 1 tablet by zoraida th once daily Vit B Comp With C-Calcium Carb Active 1 TABLET PO DAILY December 23, 2022 1:00am Vit B Comp With C-Calcium Ca rb 300 mg-150 mg calcium tablet (2 sources) Start: 12-23-2022 End: 06-14-2023 Vit B Comp With C-Calcium Ca rb 300 mg-150 mg calcium tablet Discontinued 1 {tbl} PO DAILY December 23, 2022 12:00am June 14, 2023 12:40pm Vitamin B Complex capsule (4 sources) Start: 01-26-2024 End: 04-18-2024 Vitamin B Complex capsule Discontinued 1 NMA PO DAILY as needed January 26, 2024 12:02pm April 18, 2024 7:20am Start: 08-16-2023 End: 01-26-2024 Vitamin B Complex capsule Di scontinued 1 NMA PO DAILY August 15, 2023 11:00pm January 26, 2024 12:03pm vitamin e 90 mg oral capsule (14 sources) Start: 10-28-2021 End: 12-10-2022 take 2 capsules by mouth once daily Vitamin E 200 unit capsule Discontinued 400 U PO DAILY October 28, 2021 12:00am December 10, 2022 9:20am Start: 10-28-2021 End: 12-10-2022 take 400 [IU] by mouth once daily Vitamin E Discontinued 400 UNIT PO DAILY October 28, 2021 1:00am December 10, 2022 10:20am Problems Active Problems Problem Classification Problem Date Documented Da te Episodic/Chronic Administrative/social admission (4 sources) Limited access to community support services; Translations: [Unavailability and inaccessibility of health-care facilities] Onset: 05-30-2025 04-12-2024 Episodic Anxiety disorders (16 sources) Mixed anxiety and depressive disorder; Translations: [Anxiety and depression] 02-07-2023 Chronic Aortic; peripheral; and visceral artery aneurysms (4 sources) Thoracic aortic ectasia; Translations: [Thoracic aortic ectasia] 01-26-2024 Chronic Coagulation and hemorrhagic disorders (20 sources) Platelet count below reference range; Translations: [Thrombocytopenia, unspecified] Onset: 07-16-2021 07-16-2021 Chronic Comment on above: Dr. prem De Leon, chronic ? 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] Onset: 07-15-2020 07-15-2020 Chronic Comment on above: planning EGD -did gastric emptying study 2020, EGD 10-13 Essential hypertension (20 sources) Essential hypertension; Translations: [Essential (primary) hypertension] Onset: 07-16-2021 07-16-2021 Chronic Fluid and electrolyte disorders (6 sources) Hypercapnia; Translations: [CO2 retention] 09-06-2024 Episodic Genitourinary symptoms and ill-defined conditions (19 sources) Female stress incontinence; Translations: [Stress incontinence (female) (male)] Chronic Genitourinary symptoms and ill-defined conditions (20 sources) Urine finding; Translations: [Urine finding] 04-19-2023 Episodic Comment on above: seen Dr. madonna Quiros l ack of estrogen Heart valve disorders (20 sources) Mitral valve disorder; Translations: [Rheumatic mitral valve disease, unspecified] Onset: 11-30-2024 12-07-2024 Chronic Hepatitis (20 sources) Nonalcoholic steatohepatitis; Translations: [Other chronic nonalcoholic liver disease] Onset: 07-15-2020 11-24-2021 Chronic Comment on above: metavir score 6 rech ecked recently metavir score 6 4-23 not able to use vitamin E Miscellaneous mental health disorders (20 sources) Abnormal female sexual function; Translations: [Sexual dysfunction in female] 05-05-2023 Chronic Comment on above: not had intimacy sin ce 23 yo young. will talk further in time first step is communication with and plan to reinstill intmacy Nonmalignant breast conditions (10 sources) Fibrocystic changes of bilateral breasts; Translations: [Diffuse cystic mastopathy of right breast] Onset: 07-24-2018 07-24-2018 Chronic Nonspecific chest pain (14 sources) Chest pain; Translations: [Chest pain, unspecified] Onset: 09-07-2024 09-06-2024 Episodic Nutritional deficiencies (20 sources) Vitamin D deficiency; Translations: [Vitamin D deficiency, unspecified] Onset: 06-13-2018 06-13-2018 Chronic Nutritional deficiencies (20 sources) Cobalamin deficiency; Translations: [Deficiency of other specified B group vitamins] 11-24-2021 Episodic Other and unspecified benign neoplasm (12 sources) Michael tumor of ovary; Translations: [Benign neoplasm of right ovary] 05-18-2022 Episodic Other and unspecified benign neoplasm (6 sources) Benign neoplasm of right ovary; Translations: [Benign neoplasm of ovary] Onset: 04-04-2024 Episodic Other and unspecified benign neoplasm (20 sources) Michael tumor of right ovary; Translations: [Michael tumor, right] Onset: 11-30-2024 01-31-2023 Episodic Comment on above: right ovarian remove d s/p removal, still h as left ovary. check baseline ultrasound. Other and unspecified benign neoplasm (20 sources) Melanocytic nevus; Translations: [Atypical mole] 05-05-2023 Episodic Comment on above: see jaylen yearly Other bone disease and musculoskeletal deformities (1 source) Scapulalgia; Translations: [Other specified disorders of bone, shoulder] 10-08-2024 Episodic Other bone disease and musculoskeletal deformities (3 sources) Pain of right shoulder blade; Translations: [Other specified disorders of bone, shoulder] 01-17-2025 Episodic Other connective tissue disease (11 sources) Nocturnal muscle cramp; Translations: [Cramp and spasm] 12-06-2022 Episodic Other connective tissue disease (2 sources) Cramp and spasm; Translations: [Cramp of limb] 12-06-2022 Episodic Other disorders of stomach and duodenum (14 sources) Gastroparesis syndrome; Translations: [Gastroparesis] 12-08-2021 Episodic Other endocrine disorders (14 sources) Hypoglycemia; Translations: [Hypoglycemia] 06-21-2023 Chronic Other eye disorders (20 sources) Vitreous floaters of left eye; Translations: [Other vitreous opacities, left eye] Onset: 01-15-2025 01-15-2025 Chronic Other gastrointestinal disorders (14 sources) Bowel spasm; Translations: [Irritable bowel syndrome without diarrhea] 04-22-2022 Chronic Other gastrointestinal disorders (3 sources) Irritable bowel syndrome without diarrhea; Translations: [Unspecified functional disorder of intestine] Chronic Other gastrointestinal disorders (6 sources) Abdominal bloating; Translations: [Abdominal distension (gaseous)] 09-06-2024 Episodic Other liver diseases (20 sources) Steatosis of liver; Translations: [Fatty (change of) liver, not elsewhere classified] Onset: 07-15-2020 09-29-2021 Chronic Other liver diseases (20 sources) Fatty (change of) liver, not elsewhere classified; Translations: [Other chronic nonalcoholic liver disease] Onset: 08-13-2025 Chronic Other lower respiratory disease (7 sources) Dyspnea on exertion; Translations: [Other forms of dyspnea] 07-11-2024 Episodic Other lower respiratory disease (5 sources) Dyspnea; Translations: [Shortness of breath] Onset: 08-20-2024 07-12-2024 Episodic Other lower respiratory disease (20 sources) Nodule of lung; Translations: [Solitary pulmonary nodule] 10-08-2024 Episodic Other nervous system disorders (2 sources) H/O: respiratory disease; Translations: [Personal history of other diseases of the nervous system and sense organs] 08-31-2024 Episodic Other non-epithelial cancer of skin (6 sources) Malignant neoplasm of skin of trunk ; Translations: [Unspecified malignant neoplasm of skin of other part of trunk] 04-12-2024 Episodic Comment on above: Primary adenocarcino ma of the skin of the right breast Other nutritional; endocrine; and metabolic disorders (20 sources) Body mass index 40+ - severely obese; Translations: [Morbid (severe) obesity due to excess calories] Onset: 06-01-2018 04-04-2020 Chronic Other nutritional; endocrine; and metabolic disorders (20 sources) Metabolic syndrome X; Translations: [Metabolic syndrome] 10-02-2021 Chronic Comment on above: hga1c 5.6 Other nutritional; endocrine; and metabolic disorders (19 sources) Obesity; Translations: [Obesity, unspecified] Resolved: 04-04-2020 10-02-2021 Chronic Other nutritional; endocrine; and metabolic disorders (16 sources) Obesity, unspecified; Translations: [Obesity, unspecified] Chronic Other nutritional; endocrine; and metabolic disorders (20 sources) Morbid obesity; Translations: [Morbid obesity] Onset: 08-06-2024 01-31-2023 Chronic Comment on above: she needs to get to goal 180 she does not have an appetite right now and able to loose intermittent fasting and two meals lower carb. doing hello fresh. working on walking. talk about cardioexercise slowly adding in Zone two. talk about Ozempic. talk about my fitness pal. she needs to get to goal 180 she does not have an appetite right now and able to loose intermittent fasting and two meals lower carb. doing hello fresh. working on walking. talk about cardioexercise slowly adding in Zone two. talk about Ozempic. 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 adding exercise Other nutritional; endocrine; and metabolic disorders (12 sources) Insulin resistance; Translations: [Metabolic syndrome] 12-21-2022 Chronic Other nutritional; endocrine; and metabolic disorders (6 sources) Metabolic syndrome; Translations: [Dysmetabolic syndrome X] Onset: 08-13-2025 12-21-2022 Chronic Other nutritional; endocrine; and metabolic disorders (10 sources) Severe obesity; Translations: [Morbid (severe) obesity due to excess calories] 05-16-2024 Chronic Other nutritional; endocrine; and metabolic disorders (2 sources) Morbid (severe) obesity due to excess calories; Translations: [Morbid (severe) obesity due to excess calories (HCC)] Onset: 11-14-2024 Chronic Other nutritional; endocrine; and metabolic disorders (2 sources) Body mass index (BMI) 40.0-44.9, adult; Translations: [Body mass index (BMI) 40.0-44.9, adult (HCC)] Onset: 11-14-2024 Chronic Other nutritional; endocrine; and metabolic disorders (6 sources) Unintentional weight loss; Translations: [Abnormal weight loss] 09-06-2024 Episodic Other screening for suspected conditions (not mental disorders or infectious disease) (20 sources) Elevated C-reactive protein; Translations: [Elevated C-reactive protein (CRP)] Onset: 04-04-2017 Resolved: 04-10-2020 11-19-2021 Episodic Other skin disorders (6 sources) Breast changes; Translations: [Changes in skin texture] 04-02-2024 Episodic Other skin disorders (3 sources) Nodule of subcutaneous tissue of right foot; Translations: [Localized swelling, mass and lump, right lower limb] 01-15-2025 Episodic Other upper respiratory disease (1 source) Chronic rhinitis; Translations: [Chronic rhinosinusitis] Chronic Other upper respiratory disease (10 sources) Allergic rhinitis; Translations: [Allergic rhinitis, unspecified] Onset: 02-07-2004 02-17-2004 Chronic Other upper respiratory infections (17 sources) Chronic sinusitis; Translations: [Chronic sinusitis, unspecified] Onset: 08-13-2025 12-06-2022 Chronic Residual codes; unclassified (20 sources) Obstructive sleep apnea syndrome; Translations: [Obstructive sleep apnea (adult) (pediatric)] Onset: 09-17-2013 11-28-2018 Chronic Comment on above: cpap Residual codes; unclassified (6 sources) Obstructive sleep apnea (adult) (pediatric); Translations: [Obstructive sleep apnea (adult)(pediatric)] Onset: 11-14-2024 Chronic Residual codes; unclassified (1 source) Hypoxia; Translations: [Idiopathic sleep related nonobstructive alveolar hypoventilation] 10-08-2024 Chronic Residual codes; unclassified (20 sources) Family history of breast cancer; Translations: [Family history of breast cancer in female] Onset: 07-24-2018 Resolved: 04-10-2020 01-31-2023 Episodic Comment on above: 2 maternal aunts neg ative BRCA Residual codes; unclassified (20 sources) Non-smoker; Translations: [Non-smoker] 01-31-2023 Episodic Residual codes; unclassified (9 sources) At high risk for breast cancer; Translations: [Other specified personal risk factors, not elsewhere classified] 04-12-2024 Episodic Residual codes; unclassified (1 source) Pain; Translations: [Pain, unspecified] 09-30-2021 Episodic Residual codes; unclassified (3 sources) Other specified personal risk factors, not elsewhere classified; Translations: [Other specified personal history presenting hazards to health] Onset: 05-30-2025 05-29-2025 Episodic Residual codes; unclassified (2 sources) Family history of malignant neoplasm of breast; Translations: [Family history of malignant neoplasm of breast] Onset: 05-30-2025 Episodic Respiratory failure; insufficiency; arrest (adult) (4 sources) Chronic hypoxemic respiratory failure; Translations: [Chronic respiratory failure with hypoxia] Onset: 11-14-2024 11-14-2024 Chronic Spondylosis; intervertebral disc disorders; other back problems (18 sources) Dorsalgia, unspecified; Translations: [Backache, unspecified] Episodic Thyroid disorders (20 sources) Goiter; Translations: [Nontoxic goiter, unspecified] Onset: 09-17-2013 Resolved: 07-15-2020 09-17-2013 Chronic Comment on above: TSH 1.7 and then deena nd up to 3.4 and not feel as well so increase meds little. see Dr. fuentes end of this [facility] Luis Enrique Fuentes Patient appears appr opriately corrected with normal TSH. Defer to endocrinology Thyroid disorders (14 sources) Disorder of thyroid gland; Translations: [Disorder of thyroid, unspecified] 12-10-2021 Episodic Unclassified (2 sources) Unknown / UNK(Unknown) Onset: 05-04-2018 Unclassified (20 sources) Unclassified (1 source) Strain of unspecified muscle, fascia and tendon at shoulder and upper arm level, right arm, subsequent encounter 01-17-2025 Unclassified (2 sources) New Patient; Translations: [New Patient] Onset: 05-28-2025 Unclassified (2 sources) Discuss Medications; Translations: [Discuss Medications] Onset: 11-27-2024 Unclassified (1 source) Obesity, class 3; Translations: [Obesity, class 3] Onset: 11-14-2024 Unclassified (1 source) Other acidosis; Translations: [Other acidosis] Onset: 09-07-2024 Unclassified (1 source) Insulin resistance, unspecified; Translations: [Insulin resistance, unspecified] Onset: 08-14-2025 Urinary tract infections (17 sources) Urinary tract infectious disease; Translations: [Urinary tract infection, site not specified] Episodic Past or Other Problems Problem Classification Problem Date Documented Da te Episodic/Chronic Abdominal pain (20 sources) Right upper quadrant pain; Translations: [Right upper quadrant pain] Onset: 01-09-2019 Resolved: 12-03-2019 12-03-2019 Episodic Comment on above: digestive enzymes, u rsodiol help. also has gut dysbiosis needs to come off processed carbs and foods Allergic reactions (10 sources) Psoriasiform dermatitis; Translations: [Other specified dermatitis] Onset: 07-20-2021 07-20-2021 Episodic Conditions associated with dizziness or vertigo (10 sources) Dizziness; Translations: [Dizziness and giddiness] Onset: 09-07-2024 08-31-2024 Episodic Mood disorders (20 sources) Mood disorders Onset: 05-16-2024 Resolved: 05-28-2025 05-16-2024 Nonmalignant breast conditions (5 sources) Swelling of breast; Translations: [Unspecified lump in unspecified breast] Onset: 03-19-2015 Resolved: 04-04-2017 10-19-2021 Episodic Other bone disease and musculoskeletal deformities (2 sources) Other specified disorders of bone, shoulder; Translations: [Other specified disorders of bone, shoulder] Onset: 01-15-2025 Episodic Other circulatory disease (5 sources) Elevated blood pressure; Translations: [Elevated blood-pressure reading, without diagnosis of hypertension] Onset: 10-23-2018 Resolved: 04-10-2020 04-10-2020 Episodic Other circulatory disease (5 sources) Elevated blood-pressure reading without diagnosis of hypertension; Translations: [Elevated blood-pressure reading, without diagnosis of hypertension] Onset: 05-17-2019 Resolved: 07-16-2021 07-16-2021 Episodic Other diseases of kidney and ureters (20 sources) Cyst of kidney; Translations: [Cyst of kidney, acquired] Onset: 11-30-2024 12-07-2024 Episodic Other female genital disorders (5 sources) Mass of uterine adnexa; Translations: [Other specified conditions associated with female genital organs and menstrual cycle] Onset: 01-09-2019 Resolved: 07-15-2020 07-15-2020 Episodic Other gastrointestinal disorders (10 sources) Constipation; Translations: [Other constipation] Onset: 08-24-2021 08-24-2021 Episodic Other gastrointestinal disorders (20 sources) History of stricture of esophagus; Translations: [Personal history of other diseases of the digestive system] Onset: 11-30-2024 12-07-2024 Episodic Other gastrointestinal disorders (2 sources) Abdominal distension (gaseous); Translations: [Abdominal distension (gaseous)] Onset: 09-07-2024 Episodic Other hematologic conditions (20 sources) History of thrombocytopenia; Translations: [Personal history of diseases of the blood and blood-forming organs and certain disorders involving the immune mechanism] Onset: 11-30-2024 12-07-2024 Episodic Other lower respiratory disease (2 sources) Solitary pulmonary nodule; Translations: [Solitary pulmonary nodule] Onset: 01-17-2025 Episodic Other lower respiratory disease (2 sources) Other forms of dyspnea; Translations: [Other forms of dyspnea] Onset: 09-07-2024 Episodic Other lower respiratory disease (1 source) Shortness of breath; Translations: [Shortness of breath] Onset: 08-20-2024 Episodic Other nervous system disorders (2 sources) Personal history of other diseases of the nervous system and sense organs; Translations: [Personal history of other diseases of the nervous system and sense organs] Onset: 08-31-2024 Episodic Other non-traumatic joint disorders (5 sources) Pain in right shoulder; Translations: [Pain in joint, shoulder region] Onset: 01-17-2025 01-17-2025 Episodic Other nutritional; endocrine; and metabolic disorders (5 sources) Overweight; Translations: [Overweight] Onset: 07-24-2018 Resolved: 04-10-2020 04-10-2020 Episodic Other nutritional; endocrine; and metabolic disorders (2 sources) Abnormal weight loss; Translations: [Abnormal weight loss] Onset: 09-07-2024 Episodic Other skin disorders (5 sources) Cyst of breast; Translations: [Epidermal cyst] Onset: 03-19-2015 Resolved: 05-27-2018 05-27-2018 Episodic Other skin disorders (2 sources) Localized swelling, mass and lump, right lower limb; Translations: [Localized swelling, mass and lump, right lower limb] Onset: 01-15-2025 Episodic Other upper respiratory disease (7 sources) Polyp of nasal cavity and/or nasal sinus; Translations: [Nasal polyp, unspecified] Onset: 10-16-2024 10-16-2024 Episodic Other upper respiratory disease (1 source) Nasal polyp, unspecified; Translations: [Nasal polyp, unspecified] Onset: 10-16-2024 Episodic Residual codes; unclassified (2 sources) Immunization not carried out because of patient refusal; Translations: [Immunization not carried out because of patient refusal] Onset: 09-07-2024 Episodic Sprains and strains (4 sources) Strain of muscle of upper limb; Translations: [Strain of unspecified muscle, fascia and tendon at shoulder and upper arm level, right arm, initial encounter] Onset: 01-18-2025 01-17-2025 Episodic Unclassified (1 source) LEFT FOCAL DENSITY FAST MRI Onset: 05-04-2018 Unclassified (1 source) Obesity, class 3; Translations: [Obesity, class 3] Onset: 11-14-2024 Unclassified (1 source) Other acidosis; Translations: [Other acidosis] Onset: 09-07-2024 Results Test Name Value Interpretation Reference Range Facility Absolute lymphocyte countOrd ered By: Joyce Kelley on 08-13-2025 Lymphocytes Auto (Unsp spec) [#/Vol] 1.62 10*3/uL 0.83-4.51 [facility] Absolute neutrophil countOrd ered By: Joyce Kelley on 08-13-2025 Neutrophils (Bld) [#/Vol] 4.8 10*3/uL 2.0-7.7 [facility] Automated lymphocyte count a s percentage of total leukocytesOrdered By: Joyce Sealsluis f on 08-13-2025 Lymphocytes/100 WBC Auto (Unsp spec) 22.4 % 19- [facility] Basophil percentageOrdered B y: Joyce Kelley on 08-13-2025 Basophils/100 WBC (Bld) 0.3 % 0-1 [facility] CBC W/Diff, Automatedon 07-25 Absolute Lymph 1.62 X10 3/uL Normal 0.83-4.51 [facility] Comment on above: Performed By: #### L 100.0100 #### [facility] [address] [place], [address] Absolute Neut 4.8 X10 3/uL Normal 2.0-7.7 [facility] Comment on above: Performed By: #### L 100.0100 #### [facility] [address] [place], [address] Basophils/100 WBC (Bld) 0.3 % Normal 0-1 [facility] Comment on above: Performed By: #### L 100.0100 #### [facility] [address] [place], [address] Eosinophils/100 WBC (Bld) 3.5 % Normal 0-5 [facility] Comment on above: Performed By: #### L 100.0100 #### [facility] [address] [place], [address] Erythrocyte distribution width (RBC) [Ratio] 13.8 % Normal 11.6-14.6 [facility] Comment on above: Performed By: #### L 100.0100 #### [facility] [address] [place], [address] Hematocrit (Bld) [Volume fraction] 37.8 % Normal 37-47 [facility] Comment on above: Performed By: #### L 100.0100 #### [facility] [address] [place], [address] Hemoglobin (Bld) [Mass/Vol] 12.6 g/dL Normal 12.0-15.0 [facility] Comment on above: Performed By: #### L 100.0100 #### [facility] [address] [place], [address] IG% 0.700 Normal 0.0-0.9 [facility] Comment on above: Result Comment: IG% - Immature Granulocytes (promyelocytes, myelocytes and metamyelocytes) > 1% indicates that a LEFT SHIFT is Present. Performed By: #### L 100.0100 #### [facility] [address] [place], [address] Lymphocytes/100 WBC (Bld) 22.4 % Normal 19-41 [facility] Comment on above: Performed By: #### L 100.0100 #### [facility] [address] [place], [address] MCH (RBC) [Entitic mass] 29.0 pg Normal 27.0-32.0 [facility] Comment on above: Performed By: #### L 100.0100 #### [facility] [address] [place], [address] MCHC (RBC) [Mass/Vol] 33.3 g/dL Normal 32-36 [facility] Comment on above: Performed By: #### L 100.0100 #### [facility] [address] [place], [address] MCV (RBC) [Entitic vol] 86.9 fL Normal 81-99 [facility] Comment on above: Performed By: #### L 100.0100 #### [facility] [address] [place], [address] Monocytes/100 WBC (Bld) 7.3 % Normal 0-10 [facility] Comment on above: Performed By: #### L 100.0100 #### [facility] [address] [place], [address] Neutrophils/100 WBC (Bld) 65.8 % Normal 47-70 [facility] Comment on above: Performed By: #### L 100.0100 #### [facility] [address] [place], [address] Nucleated RBC (Bld) [#/Vol] 0 10*3/uL Normal 0-5 [facility] Comment on above: Performed By: #### L 100.0100 #### [facility] [address] [place], [address] Platelet mean volume (Bld) [Entitic vol] 10.4 fL Normal 6.2-12.0 [facility] Comment on above: Performed By: #### L 100.0100 #### [facility] [address] [place], [address] Platelets (Bld) [#/Vol] 110 10*3/uL Low 150-450 [facility] Comment on above: Performed By: #### L 100.0100 #### [facility] [address] [place], [address] RBC (Bld) [#/Vol] 4.35 10*6/uL Normal 4.2-5.4 [facility] Comment on above: Performed By: #### L 100.0100 #### [facility] [address] [place], [address] RDW SD 44.0 fl High 35.1-43.9 [facility] Comment on above: Performed By: #### L 100.0100 #### [facility] [address] [place], [address] WBC (Bld) [#/Vol] 7.2 10*3/uL Normal 4.4-11.0 [facility] Comment on above: Performed By: #### L 100.0100 #### [facility] [address] [place], [address] Eosinophil percentageOrdered By: [facility] Allie on 08-13-2025 Eosinophils/100 WBC (Bld) 3.5 % 0-5 [facility] Erythrocyte distribution wid th ratioOrdered By: [facility] Allie on 08-13-2025 Erythrocyte distribution width (RBC) [Ratio] 13.8 % 11.6-14.6 [facility] Erythrocyte distribution wid th standard deviationOrdered By: [facility] on 08-13-2025 Erythrocyte distribution width (RBC) [Ratio] 44.0 fl High 35.1-43.9 [facility] Gastroenterology Visit Repor ton 08-13-2025 Gastroenterology Visit Report [facility] Gastroenterology [address] [place] [address] OFFICE VISIT Date of Service: 08/13/25 MR#: [id number] Acct: [id number] Name: LATIABRISSA Rep #: [id number] : 1965 Provider: Keny Gomez DO Age/Sex: 59/F Location: [facility] Status: Signed Intake Vital Signs 08/14/24 14:34 Height 5 ft 6 in Intake Visit Reasons: 1 Y FU--Barretts esophagus Allergies trimethoprim (From Bactrim) Allergy (Mild, Verified 08/13/25 16:03) dizzy Seasonal Allergies: Uncoded Allergy (Verified 08/13/25 16:03) Sinus congestion Medications ???Medication ???Instructions ???Recorded ???Confirmed ???Type hydrochlorothiazide 12.5 mg tablet 12.5 mg PO DAILY #90 tabs 08/13/25 Rx multivitamin 1 tab PO DAILY 08/16/23 08/13/25 H istory cholecalciferol (vitamin D3) 125 125 mcg PO DAILY 04/24/24 08/13/25 History mcg (5,000 unit) capsule mometasone 50 mcg/actuation nasal 2 spray intranasal DAILY 04/24/24 08/13/25 History spray (Nasonex 24hr Allergy) ursodiol 300 mg capsule 300 mg PO BID #180 caps 07/10/24 1 Rx metformin 500 mg tablet 500 mg PO QDAY 08/06/24 08/13/25 H istory levothyroxine 112 mcg capsule 112 mcg PO DAILY #90 caps 09/28/24 08/13/25 Rx (Tirosint) estradiol 0.025 mg/24 hr 1 patch transdermal 2XW 08/13/25 1 History semiweekly transdermal patch (Vivelle-Dot) omeprazole 20 mg capsule,delayed 20 mg PO QDAY 08/13/25 08/13/25 Hi story release Nurse's Note: Pt was scheduled for EGD and Colonoscopy on 09.06.25 at the end of their appt today. Reviewed prep instructions and which medications to hold prior to procedure with pt in office. A paper copy of Miralax prep instructions were given to pt. Pt denies any questions or concerns at this time. 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 Chronic headaches Goiter Chronic bronchitis Breast lump Bleeding disorder UTI (urinary tract infection) Anemia Surgical History History of lumpectomy of right breast H/O abdominal supracervical subtotal hysterectomy History of appendectomy Hx of nasal septoplasty Hx of oophorectomy History of colonoscopy History of cholecystectomy Hx of umbilical hernia repair Family History Father Hypertension Diabetes CHF (congestive heart failure) Heart disease CAD (coronary artery disease) COPD (chronic obstructive pulmonary disease) Pneumonia Dysphagia Dementia Other Arthritis Osteoporosis Social History Smoking Status: Never smoker alcohol intake: never substance use type: does not use seatbelt use: always do you feel safe at home: Yes additional social history: 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 Endocrinology established 10.02.21 for management of hypothyroidism with thyroid nodules; later diagnosed with insulin resistance. Tirosint started dose increased 06.16.23 to aid in weight loss. Weight loss and fatigue discussed with Brissa Noble reporting that she is eating 1500 calories/day ??? carbon cleaner questions this and notes she needs to exercise and has not pursued weight loss education as previously discussed. 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 Plan is to monitor. Recommend f/u in one year, platelet goal >50k WHG established 3.2.22 with FH of mother with significant heart problems; diagnosed with essential HTN and metabolic syndrome. 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 *BGI established 09.14.21 with constipation, abdominal pain and bloating; onset 2011 with symptoms of abdominal pain and mild nausea. PCP recommended fiber incre (more content not included)... Normal [facility] Hematocrit Auto (Bld) [Volum e fraction]Ordered By: Joyce Kelley on 08-13-2025 Hematocrit (Bld) [Volume fraction] 37.8 % 37-47 [facility] Hemoglobin measurementOrdere d By: Joyce Kelley on 08-13-2025 Hemoglobin (Bld) [Mass/Vol] 12.6 g/dL 12.0-15.0 [facility] Immature granulocytes/100 WB C Auto (Bld)Ordered By: Joyce Kelley on 08-13-2025 Immature granulocytes/100 WBC (Bld) 0.700 % 0.0-0.9 [facility] Comment on above: IG% - Immature Granu locytes (promyelocytes, myelocytes and metamyelocytes) > 1% indicates that a LEFT SHIFT is Present. MCV (mean corpuscular volume ) determinationOrdered By: Joyce Kelley on 08-13-2025 MCV (RBC) [Entitic vol] 86.9 fL 81-99 [facility] Mean corpuscular hemoglobin (MCH) determinationOrdered By: Joyce Kelley on 08-13-2025 MCH (RBC) [Entitic mass] 29.0 pg 27.0-32.0 [facility] Mean corpuscular hemoglobin concentration (MCHC) determinationOrdered By: Joyce Kelley on 08-13-2025 MCHC (RBC) [Mass/Vol] 33.3 g/dL 32-36 [facility] Mean platelet volume determi nationOrdered By: Joyce Kelley on 08-13-2025 Platelet mean volume (Bld) [Entitic vol] 10.4 fL 6.2-12.0 [facility] Monocyte percentageOrdered B y: Joyce Kelley on 08-13-2025 Monocytes/100 WBC (Bld) 7.3 % 0-10 [facility] Neutrophil percentageOrdered By: Joyce Kelley on 08-13-2025 Neutrophils/100 WBC (Bld) 65.8 % 47-70 [facility] Nucleated red blood cell per centageOrdered By: Joyce Kelley on 08-13-2025 Nucleated RBC/100 WBC (Bld) [Ratio] 0 % 0-5 [facility] Oncology Visit Reporton 10- Oncology Visit Report [facility] [place] [facility] [address] [place] [address] OFFICE VISIT Date of Service: 08/13/25 1600 MR#: [id number] Acct: [id number] Name: BRISSA JEFFERY Rep #: [id number] : 1965 From: Joyce Kelley MD Age/Sex: 59/F Location: [facility] Status: Signed HPI Subjective Date of Service 08/13/25 Chief Complaint Low platelet count and skin cancer History of Present Illness 56-year-old female was first for consultation in October 2021 for a chronic thrombocytopenia. 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 The tissue excised measured 0.9 cm x 0.4 cm x 1.1 cm. The pathology was sent to a second opinion at [facility] which concurred with the diagnosis being a primary skin cancer rather than breast cancer. IHC was negative for ER and HER2. March 30, 2024 the patient underwent wide excision and there was no residual malignancy identified in the tissue that measured 2.3 cm x 1.1 cm x 1.0 cm. A diagnostic mammogram in March 2024 ([facility]) showed no suspicious abnormalities. The patient was seen by breast surgeon at [facility] in March 2024 who concurred with the pathologist that this is a primary skin cancer rather than breast cancer and advised continued annual screening. 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 Chronic headaches Goiter Chronic bronchitis Breast lump Bleeding disorder UTI (urinary tract infection) Anemia Surgical History History of lumpectomy of right breast H/O abdominal supracervical subtotal hysterectomy History of appendectomy Hx of nasal septoplasty Hx of oophorectomy History of colonoscopy History of cholecystectomy Hx of umbilical hernia repair Family History Father Hypertension Diabetes CHF (congestive heart failure) Heart disease CAD (coronary artery disease) COPD (chronic obstructive pulmonary disease) Pneumonia Dysphagia Dementia Other Arthritis Osteoporosis Social History Smoking Status: Never smoker alcohol intake: never substance use type: does not use seatbelt use: always do you feel safe at home: Yes additional social history: 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, [employer]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 YURIY YAN Narrative Easy bruising otherwise unaware of any abnormal bleeding Intake Vital Signs 08/14/24 14:34 08/13/25 16:01 08/13/25 16:09 Height 5 ft 6 in 5 ft 6 in 5 ft 6 in Weight: 124.738 kg BMI 44.4 BP 128/82 H Blood Pressure Location Lt brachial Position Sitting Respiration 16 Pulse 82 Pulse Source Monitor Temp 98.2 F Temperature Source Temporal Artery Pulse Oximetry (%) 97 Oxygen Delivery Method room air Intake Is patient in pain?: No Allergies trimethoprim (From Bactrim) Allergy (Mild, Verified 08/13/25 16:03) dizzy Seasonal Allergies: Uncoded Allergy (Verified 08/13/25 16:03) Sinus congestion Medications ???Medication ???Instructions ???Recorded ???Confirmed ???Type hydrochlorothiazide 12.5 mg tablet 12.5 mg PO DAILY #90 tabs 08/13/25 Rx multivitamin 1 tab PO DAILY 08/16/23 08/13/25 H istory cholecalciferol (vitamin D3) 125 125 mcg PO DAILY 04/24/24 08/13/25 History mcg (5,000 unit) capsule mometasone 50 mcg/actuation nasal 2 spray intranasal DAILY 04/24/24 08/13/25 History spray (Nasonex 24hr Allergy) ursodiol 300 mg capsule 300 mg PO BID #180 caps 07/10/24 1 Rx metformin 500 mg tablet 500 mg PO QDAY 08/06/24 08/13/25 H istory levothyroxine 112 mcg capsule 112 mcg PO DAILY #90 caps 09/28/24 08/13/25 Rx (Tirosint) estradiol 0.025 mg/24 hr 1 patch transdermal 2XW 08/13/25 1 History semiweekly transdermal patch (Vivelle-Dot) omeprazole 20 mg capsule,delayed 20 mg PO QDAY 08/13/25 08/13/25 Hi (more content not included)... Normal [facility] Platelet countOrdered By: Kieran Kelley on 08-13-2025 Platelets (Bld) [#/Vol] 110 10*3/uL Low 150-450 [facility] Prothrombin Time w/INRon INR Normal [facility] Comment on above: Result Comment: PULL ED WRONG INTERNAL ORDER Performed By: #### L 3100.5310, L300.3900 #### [facility] [address] [place], [address] PROTIME Normal 11.7-14.9 [facility] Comment on above: Result Comment: PULL ED WRONG INTERNAL ORDER Performed By: #### L 3100.5310, L300.3900 #### [facility] [address] [place], [address] RBC Auto (Bld) [#/Vol]Ordere d By: Joyce Kelley on 08-13-2025 RBC (Bld) [#/Vol] 4.35 10*6/uL 4.2-5.4 [facility] Testosterone, Total / Freeon 08-13-2025 TESTOSTER,FREE Normal [facility] Comment on above: Order Comment: N Result Comment: PULL ED WRONG INTERNAL ORDER Performed By: #### L 3100.5310, L300.3900 #### [facility] [address] [place], [address] TESTOSTER,TOTAL Normal [facility] Comment on above: Order Comment: N Result Comment: PULL ED WRONG INTERNAL ORDER Performed By: #### L 3100.5310, L300.3900 #### [facility] [address] [place], [address] TESTOSTERONE,%F Normal 0.50-1.80 [facility] Comment on above: Order Comment: N Result Comment: PULL ED WRONG INTERNAL ORDER Performed By: #### L 3100.5310, L300.3900 #### [facility] [address] [place], [address] White blood cell (WBC) count Ordered By: Joyce Kelley on 08-13-2025 WBC (Bld) [#/Vol] 7.2 10*3/uL 4.4-11.0 [facility] 36on 08-06-2025 36 Cannot auth into yet, too soon. [facility] 36on 08-05-2025 36 Your patient has bee n scheduled for their CT chest on 01/15/[address] [place] [address] . If testing requires an insurance authorization, the authorization must be in place 72 hours prior to the scheduled test or testing will be cancelled. Thank you, Central Scheduling [facility] 36on 07-29-2025 36 Error Normal [facility] 36 Patient called issa mcgee to know next steps after her CT of the Chest. Dr. Maldonado states she needs a repeat CT of the Chest in 6 months. Patient given Centralized Scheduling telephone number and Dr. Maldonado will place order of CT into [facility] so patient can call and schedule. [facility] CT CHEST WO IV CONTRASTon CT CHEST WO IV CONTRAST Patient Name: BRISSA JEFFERY : 1965 Exam Date/Time: 07/18/2025 09:48 Procedure: CT CHEST WO IV CONTRAST Ordering Provider: MALDONADO ROBERT Reason For Exam: Lung nodule, > 8mm Indication: Solitary pulmonary nodule. Comparison 01/17/2025. FINDINGS: Unenhanced chest performed. Dose reduction and automatic exposure control utilized. No acute process of mediastinum. No emergent adenopathy. No coronary calcification. Limited upper abdomen shows no free air or acute process. No spinal compression seen. LUNGS: No major volume loss. No consolidation. No effusion or pneumothorax. Nodules: Visually stable left upper lobe nodule, 11.2 x 6.6 mm. Stable left lower lobe nodule 4 mm series 5 image 184. A few additional tiny nodules evident, grossly stable. IMPRESSION: Impression: Stable 9 mm left upper lobe nodule. No acute process. Report Dictated on Electronically Signed By: Demetri Monte MD Electronically Signed Date/Time: 07/22/2025 10:15 AM EDT Pt sts follow up on nodule Hx of adenocarcinoma non smoker Normal [facility] 36on 06-13-2025 36 Patient has been scheduled, notified and in agreement. [facility] Office Visiton 06-13-2025 Follow-up visit [id number] Brissa Jeffery 1965 F Date Provider Department Center 06/13/2025 [id number] JEFFERSON [facility] Family History Problem Relation Age of Onset Diabetes Mother Emphysema Mother Heart failure Mother Emphysema Father Hypertension Father Breast cancer Mother's Sister 55 Breast cancer Mother's Sister 55 Lung cancer Mother's Brother 55 Breast cancer Paternal Grandmother 55 Stomach cancer Paternal Grandmother Family Status - Relation Status Age at Mother Father Daughter Alive Mother's Sister Mother's Sister Mother's Brother Maternal Grandmother Maternal Grandfather Paternal Grandmother Paternal Grandfather Level of Service:[address] [place] PERIODIC PREVENTIVE MED EST PATIENT 40-64YRS Reason for Visit and Comments: Annual Exam [83] [facility] Progress Noteon 06-13-2025 Progress Note Brissa Jeffery 06/13/2024 59 y.o. Primary Care Physician: Sudhir Pedraza DO Chief Complaint Patient presents with Annual Exam HPI : Brissa Jeffery is a 59 y.o. female here for annual exam ____ Gynecologic History: Supracervical Hysterectomy was done at age 41 for AUB Right Ovary was removed- Michael tumor & acellular mucin deposits; 2019 Per note in Care Everywhere 06/2019- Dr. Carter who consulted with [facility] Dr. Lewis - follow with US annually and watch for sxs - GI workup with EGD and image pancreas Sees GI, had PET scan Last US 2024 Impression Right ovary surgically absent Left ovary not visualized No pelvic fluid Spoke with Dr. Krueger, can do US prn symptoms. Last colonoscopy 2018 Preventative Health Testing: Date of Last Pap Smear: 2023 neg pap and HPV Goes to high risk breast clinic - had a lesion on the skin of her breast that was skin adenocarcinoma. Excision by derm. Now seeing Dr. Garza as well 2019 Multigene genetic testing negative 01/2024- Skin adenocarcinoma on breast skin. Not a breast cancer 04/2025 Mammo 05/2025 MRI - needs repeat in 6 months OB History Para Term AB Living 1 1 1 1 SAB IAB Ectopic Multiple Live Births 1 # Outcome Date GA Lbr Champ/2nd Weight Sex Type Anes PTL Lv 1 Term Vag-Spont Medical History[1] Surgical History[2] Family History[3] Social History Socioeconomic History Marital status: Spouse name: Not on file Number of children: Not on file Years of education: Not on file Highest education level: Not on file Occupational History Not on file Tobacco Use Smoking status: Never Passive exposure: Never Smokeless tobacco: Never Vaping Use Vaping status: Never Used Substance and Sexual Activity Alcohol use: Never Drug use: Never Sexual activity: Not Currently Partners: Male control/protection: Surgical Comment: Hyst Other Topics Concern Not on file Social History Narrative Not on file Social Drivers of Health Financial Resource Strain: Low Risk (05/15/2025) Overall Financial Resource Strain (CARDIA) Difficulty of Paying Living Expenses: Not hard at all Food Insecurity: No Food Insecurity (05/15/2025) Hunger Vital Sign Worried About Running Out of Food in the Last Year: Never true Ran Out of Food in the Last Year: Never true Transportation Needs: No Transportation Needs (05/15/2025) PRAPARE - Transportation Lack of Transportation (Medical): No Lack of Transportation (Non-Medical): No Physical Activity: Insufficiently Active (05/15/2025) Exercise Vital Sign Days of Exercise per Week: 5 days Minutes of Exercise per Session: 20 min Stress: Stress Concern Present (05/15/2025) [employer] [place] [employer] - Occupational Stress Questionnaire Feeling of Stress : Very much Social Connections: Socially Integrated (05/15/2025) Social Connection and Isolation Panel [NHANES] Frequency of Communication with Friends and Family: More than three times a week Frequency of Social Gatherings with Friends and Family: More than three times a week Attends Orthodox Services: More than 4 times per year Active Member of Clubs or Organizations: Yes Attends Club or Organization Meetings: More than 4 times per year Marital Status: Intimate Partner Violence: Patient Declined (05/15/2025) Humiliation, Afraid, Rape, and Kick questionnaire Fear of Current or Ex-Partner: Patient declined Emotionally Abused: Patient declined Physically Abused: Patient declined Sexually Abused: Patient declined Housing Stability: Low Risk (05/15/2025) Housing Stability Vital Sign Unable to Pay for Housing in the Last Year: No Number of Times Moved in the Last Year: 1 Homeless in the Last Year: No MEDICATIONS: Current Medications[4] ALLERGIES: Allergies as of 06/13/2025 - Reviewed 06/13/2025 Allergen Reaction Noted Sulfamethoxazole-trime thoprim Other and Unknown 03/21/2018 Seasonal 05/16/2024 Trimethoprim Dizziness 08/14/2024 REVIEW OF SYSTEMS: CONSTIUTIONAL: No weight change or fatigue CV: No Chest Pain with Exertion, Palpitations, Syncope, Edema, Arrhythmia RESPIRATORY: No SOB or Cough, BREAST: No breast abnormalities or lumps GI: No Indigestion, Heartburn, Nausea, vomiting, Diarrhea, Constipation,Bloating or Bowel Changes; No Bloody Stools or melena : No Dysuria, Hematuria or Nocturia. No Urinary Incontinence or Vaginal Discharge,vaginal bleeding, or dysparuenia. NEURO: No CVA, Migraines, Seizure Hx, or Limb Weakness DERM: No Rash, Itching, Mole Changes or Cancer PSYCH: No Depression, Homicidal thoughts,suicidal thoughts, or anxiety MUSCULOSKELETAL: No Arthralgia, Arthritis HEME and LYMPH :No Lymphoma, Von Willebrand's, Hemophillia or Bleeding History PHYSICAL EXAM: Vitals: 06/13/25 1009 BP: 124/80 Pulse: 84 Weight: 268 lb (122 kg) Height: 5' (more content not included)... Normal [facility] Progress Note A pot liner was offered to be present during her exam. The patient: declined Here for annual. Pt has hyst. Negative for BRCA gene. Will have to repeat breast MRI in 6 months per breast center. Mammogram 05/10/25 Breast MRI 06/12/25 Neg pap/neg hpv 06/13/24 Normal [facility] 36on 06-12-2025 36 I spoke Gilma about her results and recommendations. Plan for full breast MRI in 6 months unless her rua-mz-odsned cost is too high then we will plan for fast breast MRI Normal [facility] MR Breast - bilateral WO and W contrast Lucas 06-12-2025 No MRI evidence of malignancy in either breast. ASSESSMENT: Category 3 Probably benign RECOMMENDATION: Breast MRI in 6 months Bilateral COMMENTS: Report Dictated on Electronically Signed By: Liudmila Yin MD Electronically Signed Date/Time: 06/12/2025 10:57 AM EDT [facility] Patient Name: BRISSA JEFFERY : 1965 Exam Date/Time: 06/12/2025 08:52 Procedure: BI MR BREAST BILATERAL W AND WO CONTRAST W CAD Ordering Provider: GARZA KRISTINA Reason For Exam: HIGH-RISK (>=20% LIFETIME) FOR BREAST CA (BRCA MUTATION, FIRST-DEGREE RELATIVES, HX OF CHEST RADIATION) MRI TECHNIQUE: Clinical Indication: Breast MRI Diagnostic. Clinical Indication: High risk Contrast: Vueway 12.5 mL IV. Bilateral breast MRI was performed with a dedicated breast coil. Fat saturated T2 weighted and T1 weighted axial images were obtained of both breasts. Dynamic pre-and post contrast axial image sets were obtained of both breasts after intravenous injection of gadolinium based contrast. Delayed post contrast sagittal images were also obtained. Subtraction images and MIP images were generated. Interpretation was made in conjunction with CAD. The patient's prior imaging was reviewed. FINDINGS: Motion artifact limits the sensitivity of the examination. There is mild bilateral background enhancement. Right Breast: There is a new 2 mm focus of enhancement in the central lateral right breast superior to the nipple which is probably benign. Short-term follow-up is recommended. There is no suspicious mass or non-mass enhancement in the right breast. Left Breast: There is no suspicious mass or non-mass enhancement in the left breast. Other: No axillary or internal mammary lymphadenopathy is appreciated. [facility] Liudmila Yin MD - 06/12/2025 Patient Name: BRISSA JEFFERY : 1965 Exam Date/Time: 06/12/2025 08:52 Procedure: BI MR BREAST BILATERAL W AND WO CONTRAST W CAD Ordering Provider: GARZA KRISTINA Reason For Exam: HIGH-RISK (>=20% LIFETIME) FOR BREAST CA (BRCA MUTATION, FIRST-DEGREE RELATIVES, HX OF CHEST RADIATION) MRI TECHNIQUE: Clinical Indication: Breast MRI Diagnostic. Clinical Indication: High risk Contrast: Vueway 12.5 mL IV. Bilateral breast MRI was performed with a dedicated breast coil. Fat saturated T2 weighted and T1 weighted axial images were obtained of both breasts. Dynamic pre-and post contrast axial image sets were obtained of both breasts after intravenous injection of gadolinium based contrast. Delayed post contrast sagittal images were also obtained. Subtraction images and MIP images were generated. Interpretation was made in conjunction with CAD. The patient's prior imaging was reviewed. FINDINGS: Motion artifact limits the sensitivity of the examination. There is mild bilateral background enhancement. Right Breast: There is a new 2 mm focus of enhancement in the central lateral right breast superior to the nipple which is probably benign. Short-term follow-up is recommended. There is no suspicious mass or non-mass enhancement in the right breast. Left Breast: There is no suspicious mass or non-mass enhancement in the left breast. Other: No axillary or internal mammary lymphadenopathy is appreciated. IMPRESSION: No MRI evidence of malignancy in either breast. ASSESSMENT: Category 3 Probably benign RECOMMENDATION: Breast MRI in 6 months Bilateral COMMENTS: Report Dictated on Electronically Signed By: Liudmila Yin MD Electronically Signed Date/Time: 06/12/2025 10:57 AM EDT [facility] Radiology Study observation (narrative) [facility] MR Breast - bilateral WO and W contrast IVOrdered By: Liudmila Yin on 06-12-2025 [employer] Phone: 36on 05-30-2025 36 Pt returned call and is scheduled for 06/12 MRI. She was informed of date and time Normal [facility] 36 Pt informed me today that she would be willing to take a sooner MRI appt if avaiable. She was due 04/2025. Called and LVM for pt that opening for 06/12 is available and if she is interested to call me back to schedule. Informed her unsure how long it would be open for. Normal [facility] Office Visiton 05-30-2025 Follow-up visit [id number] Brissa Jeffery 1965 F Date Provider Department Center 05/30/2025 [id number] [facility] ELIJAH None Family History Problem Relation Age of Onset Diabetes Mother Emphysema Mother Heart failure Mother Emphysema Father Hypertension Father Breast cancer Mother's Sister 55 Breast cancer Mother's Sister 55 Lung cancer Mother's Brother 55 Breast cancer Paternal Grandmother 55 Stomach cancer Paternal Grandmother Family Status - Relation Status Age at Mother Father Daughter Alive Mother's Sister Mother's Sister Mother's Brother Maternal Grandmother Maternal Grandfather Paternal Grandmother Paternal Grandfather Level of Service:26564 [place] PREV MED CNSL&/RSK FCTR RDCTJ INDV APPROX 30 MIN Reason for Visit and Comments: 6 Month Follow-up [671] - Denies any breast pain or concerns New to provider, used to see Dr. Garza. [facility] Progress Noteon 05-30-2025 Progress Note Brissa Jeffery is a 59 y.o. YO F here for follow up high risk breast cancer surveillance Breast History: 1. She was first seen in the breast center on 04/12/[address] Garza for history of right breast skin lesion which demonstrated adenocarcinoma. This was treated with complete excision to negative margins by her ent surgeon on 03/12/24. She sees dermatology every 6 months 2. She has a family history of breast cancer in 2 maternal aunts at 55 and in her paternal grandmother at age 55 Lifetime risk of breast cancer by Tyrer-Cuzick v8: 23%(recalculated today) High Risk follow up: Last Mammogram: 05/10/2025 BI-RADS 2 Last Breast MRI: 05/17/20240417-HI-XNLS 1 Genetic testin05/2018-BRACAna lysis with [employer] through [employer] was negative 3.Today, she has no breast concerns. She denies breast mass, nipple change, nipple discharge or skin change. We discussed continued screening with breast MRI. She is agreeable to her next breast MRI and then we will plan to defer breast MRIs. 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 Breast imaging: Mammogram 05/10/2025 TISSUE DENSITY: BIRADS B - There are scattered areas of fibroglandular density. FINDINGS: No suspicious masses, architectural distortions or suspiciously clustered microcalcifications are identified. There is no evidence of skin thickening or nipple retraction. There are benign bilateral breast calcifications. There are no significant changes when compared with prior studies. IMPRESSION: No mammographic evidence of malignancy. ASSESSMENT: Category 2 Benign RECOMMENDATION: Routine screening mammogram in 1 year. Bilateral Breast MRI 05/17/2024 FINDINGS: There is mild bilateral background enhancement. Right Breast: There is no suspicious mass or non-mass enhancement in the right breast. Left Breast: There is no suspicious mass or non-mass enhancement in the left breast. Other: No axillary or internal mammary lymphadenopathy is appreciated. A T2 bright liver lesion is seen, most consistent with a cyst or hemangioma. IMPRESSION: No MRI evidence of malignancy in either breast. No findings seen to explain the skin changes. ASSESSMENT: Category 1 Negative RECOMMENDATION: Breast MRI in 1 year Bilateral Clinical correlation Right Pathology: Case Report Surgical Pathology Report Case: [id number] Authorizing Provider: Elvin Cortez MD Collected: 03/12/2024 02:01 PM Ordering Location: [facility] Received: 03/12/2024 02:03 PM [facility] Pathologist: Reg Neumann MD Specimen: Slide(s), [address] [id number] FINAL DIAGNOSIS A. 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 Genetics: Family Cancer History includes: Medical History includes: has a past medical history of Adenocarcinoma (HCC) (02/17/2024), Allergic rhinitis, BRCA1 negative, BRCA2 negative, Disease of thyroid gland, Fibrocystic breast, GERD (gastroesophageal reflux disease) (09/13), Headache, Hypertension, Insomnia, Liver disease (09/13), Lung nodule, Obesity, Prediabetes, Sleep apnea (03/2024), Sleep apnea, obstructive (2017), and Snoring. Surgical History includes : Surgical History[1] Medications include: Current Medications[2] Allergies include: Allergies as of 05/30/2025 - Reviewed 05/30/2025 Allergen Reaction Noted Sulfamethoxazole-trime thoprim Other and Unknown 03/21/2018 Seasonal 05/16/2024 Trimethoprim Dizziness 08/14/2024 Review of Systems Constitutional: Negative for activity change, appetite change, chills, fatigue, fever and unexpected weight change. Eyes: Negative for visual disturbance. Respiratory: Negative for apnea and shortness of breath. Cardiovascular: Negative for chest pain. Gastrointestinal: Negative for nausea. Genitourinary: Negative for dyspareunia and vaginal bleeding. Musculoskeletal: Negative for arthralgias, back pain, gait problem and joint swelling. Skin: Negative for rash. Neurological: Negative for dizziness and headaches. Psychiatric/Behavioral : The patient is not nervous/anxious. BP 120/71 (BP Location: Right arm, Patient Position: Sitting) Pulse 90 Temp 36.4 ?C (97.5 ?F) (Temporal) Ht 5' 6 (1.676 m) Wt 274 lb (124 kg) BMI 44.22 kg/m? Physical Exam Constitutional: General: She is not in acute distress. Appearance: Normal appearance. HENT: Head: Normocephalic and atraumatic. Pulmonary: Effort: Pulmonary effort is normal. No respiratory distress. Chest: Breasts: Right: No (more content not included)... Normal [facility] PELVIS LIMITEDon 05-23-20 US PELVIS LIMITED -- ---- Gynecological Report (Signed Final 05/23/2025 09:26 am) ---- PATIENT INFO: ID #: [id number] : [birth year] (59 yrs)(F) Name: BRISSA JEFFERY Visit Date: 05/22/2025 10:02 am ---- PERFORMED BY: Attending: Jeff Unger MD Performed By: Yakelin Raygoza RDMS Referred By: MARTIN HYATT MD Location: [facility] [employer] [facility] ---- SERVICE(S) PROVIDED: Delinquency Counselor Sonogram - Limited + Transvaginal [id number] ---- INDICATIONS: Michael tumor of ovary, 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 ---- UTERUS: Uterus: Surgically absent Position: Not applicable Description: S/P supracervical hysterectomy. The remaining cervix measures 3 x 2.5 x 2.8 cm. ---- ENDOMETRIUM: ---- CERVIX: Multiple cervical cysts are noted. ---- CUL-DE-SAC: No free fluid was visualized ---- RIGHT OVARY: Status: Surgically absent Comment: No obvious adnexal mass. ---- LEFT OVARY: Status: Not visualized TA or TV Comment: No obvious adnexal mass. ---- ---- Jeff Unger MD Electronically Signed Final Report 05/23/2025 09:26 am ---- IMPRESSION: S/P supracervical hysterectomy, cystic lesion seen at apex of vagina - presumably cervix. The right ovary is surgically absent. The left ovary was not visualized vaginally or abdominally. The patient is scheduled to see Dr. Hyatt following ultrasound. *Ultrasound cannot detect all pelvic or [employer] abnormalities and normal findings cannot guarantee the absence of a problem.* Normal [facility] US PELVIS TRANSVAGINALon US PELVIS TRANSVAGINAL ----- ---- Gynecological Report (Signed Final 05/23/2025 09:26 am) ---- PATIENT INFO: ID #: [id number] : [birth year] (59 yrs)(F) Name: BRISSA JEFFERY Visit Date: 05/22/2025 10:02 am ---- PERFORMED BY: Attending: Jeff Unger MD Performed By: Yakelin Raygoza RDMS Referred By: MARTIN HYATT MD Location: [facility] [employer] [facility] ---- SERVICE(S) PROVIDED: Delinquency Counselor Sonogram - Limited + Transvaginal [phone] ---- INDICATIONS: Michael tumor of ovary, 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 ---- UTERUS: Uterus: Surgically absent Position: Not applicable Description: S/P supracervical hysterectomy. The remaining cervix measures 3 x 2.5 x 2.8 cm. ---- ENDOMETRIUM: ---- CERVIX: Multiple cervical cysts are noted. ---- CUL-DE-SAC: No free fluid was visualized ---- RIGHT OVARY: Status: Surgically absent Comment: No obvious adnexal mass. ---- LEFT OVARY: Status: Not visualized TA or TV Comment: No obvious adnexal mass. ---- ---- Jeff Unger MD Electronically Signed Final Report 05/23/2025 09:26 am ---- IMPRESSION: S/P supracervical hysterectomy, cystic lesion seen at apex of vagina - presumably cervix. The right ovary is surgically absent. The left ovary was not visualized vaginally or abdominally. The patient is scheduled to see Dr. Hyatt following ultrasound. *Ultrasound cannot detect all pelvic or CONCRETE FOREMAN abnormalities and normal findings cannot guarantee the absence of a problem.* Normal [facility] Office Visiton 05-22-2025 Follow-up visit [id number] Brissa Jeffery 1965 F Date Provider Department Center 05/22/2025 [id number] HYATT [facility] OB MG OB Offi Family History Problem Relation Age of Onset Diabetes Mother Emphysema Mother Heart failure Mother Emphysema Father Hypertension Father Breast cancer Mother's Sister 55 Breast cancer Mother's Sister 55 Lung cancer Mother's Brother 55 Breast cancer Paternal Grandmother 55 Stomach cancer Paternal Grandmother Family Status - Relation Status Age at Mother Father Daughter Alive Mother's Sister Mother's Sister Mother's Brother Maternal Grandmother Maternal Grandfather Paternal Grandmother Paternal Grandfather Level of Service:[id number] [place] OFFICE/OUTPATIENT ESTABLISHED MDM 10 MIN Reason for Visit and Comments: Follow-up [[id number]] Normal [facility] Progress Noteon 05-22-2025 Progress Note Brissa Jeffery 05/22/2025 59 y.o. Primary Care Physician: Sudhir Pedraza DO Chief Complaint Patient presents with Follow-up HPI : Brissa Jeffery is a 59 y.o. female here for annual exam ____ Gynecologic History: Supracervical Hysterectomy was done at age 41 for AUB Right Ovary was removed- Michael tumor & acellular mucin deposits; 2019 Per note in Care Everywhere 06/2019- Dr. Carter who consulted with [employer] ONC Dr. Lewis - follow with US annually and watch for sxs - GI workup with EGD and image pancreas Since 2019 she has been having yearly pelvic US at [facility] Todays US was the first at [facility] Prelim US Right ovary surgically absent Left ovary not visualized No pelvic fluid FINAL DIAGNOSIS -2019 FINAL DIAGNOSIS 1. Appendix, resection (A) Appendix with distal fibrosis, negative for neoplasm, see comment. 2. Right fallopian tube and ovary, resection (B): - Multifocal surface deposits of acellular mucin, see comment. - Tubo-ovarian adhesions, extensive. - Follicular cysts and hemorrhagic corpus luteum of ovary. - Michael tumor of ovary. AES/db 05/29/2019 COMMENT Numerous mucin deposits with neovascularization, histiocytes with foreign body reaction, calcification and fibrovascular adhesions are identified in Part B. The areas with mucin deposits include collagenous tissue of nonspecific origin and serosal surfaces of ovary and fallopian tube. No neoplastic epithelium is identified within the mucin. The presence of the acellular mucin is of concern because it could represent secondary involvement by a mucinous neoplasm from sites such as gastrointestinal including appendix, pancreas or ovary. No definite parenchymal invasion of organs by the mucin is identified and no mucin deposits are present on the appendix. A single focus of intestinal-type mucinous epithelium with bland well-differentiated features is identified in continuity with benign salpingeal tissue. No definite endometriosis or metaplastic endometriosis, germ cell neoplasia, mucinous component in the Michael tumor or appendiceal neoplasm were identified. Due to anatomic distortions and fragmentation of the specimen, we were unable to determine if the tissue in part B represents bilateral ovaries and tubes. Preliminary findings were discussed with Drs. Rimma Wahl and Elizabeth Shen on 05/29/19 and 05/30/19. Jose Jaime J. McKenney, Asad and Perry were consulted and concur. Dr. Ronit Puri was consulted (A). Surgical History[1] Family History[2] Social History Socioeconomic History Marital status: Spouse name: Not on file Number of children: Not on file Years of education: Not on file Highest education level: Not on file Occupational History Not on file Tobacco Use Smoking status: Never Passive exposure: Never Smokeless tobacco: Never Vaping Use Vaping status: Never Used Substance and Sexual Activity Alcohol use: Never Drug use: Never Sexual activity: Never control/protection: Surgical Comment: Hyst Other Topics Concern Not on file Social History Narrative Not on file Social Drivers of Health Financial Resource Strain: Low Risk (05/15/2025) Overall Financial Resource Strain (CARDIA) Difficulty of Paying Living Expenses: Not hard at all Food Insecurity: No Food Insecurity (05/15/2025) Hunger Vital Sign Worried About Running Out of Food in the Last Year: Never true Ran Out of Food in the Last Year: Never true Transportation Needs: No Transportation Needs (05/15/2025) PRAPARE - Transportation Lack of Transportation (Medical): No Lack of Transportation (Non-Medical): No Physical Activity: Insufficiently Active (05/15/2025) Exercise Vital Sign Days of Exercise per Week: 5 days Minutes of Exercise per Session: 20 min Stress: Stress Concern Present (05/15/2025) [employer] [place] [employer] - Occupational Stress Questionnaire Feeling of Stress : Very much Social Connections: Socially Integrated (05/15/2025) Social Connection and Isolation Panel [NHANES] Frequency of Communication with Friends and Family: More than three times a week Frequency of Social Gatherings with Friends and Family: More than three times a week Attends Orthodox Services: More than 4 times per year Active Member of Clubs or Organizations: Yes Attends Club or Organization Meetings: More than 4 times per year Marital Status: Intimate Partner Violence: Patient Declined (05/15/2025) Humiliation, Afraid, Rape, and Kick questionnaire Fear of Current or Ex-Partner: Patient declined Emotionally Abused: Patient declined Physically Abused: Patient declined Sexually Abused: Patient declined Housing Stability: Low Risk (05/15/2025) Housing Stability Vital Sign Unable to Pay for Housing in the Last Year: No Number of Times Moved in the Last Year: 1 Homeless in t (more content not included)... Normal [facility] Office Visiton 05-15-2025 Follow-up visit [id number] Brissa Jeffery 1965 F Date Provider Department Center 05/15/2025 [id number] PEDRAZA [facility] Family History Problem Relation Age of Onset Diabetes Mother Emphysema Mother Heart failure Mother Emphysema Father Hypertension Father Breast cancer Mother's Sister 55 Breast cancer Mother's Sister 55 Lung cancer Mother's Brother 55 Breast cancer Paternal Grandmother 55 Stomach cancer Paternal Grandmother Family Status - Relation Status Age at Mother Father Daughter Alive Mother's Sister Mother's Sister Mother's Brother Maternal Grandmother Maternal Grandfather Paternal Grandmother Paternal Grandfather Level of Service:[address]20 [place] PERIODIC PREVENTIVE MED EST PATIENT 40-64YRS Reason for Visit and Comments: Annual Exam [83] - Physical Ear Fullness [313469] - Right ear fullness causing dizziness x1 month. Fullness and dizziness has mostly subsided Hot Flashes [326] - Patient reports feeling hot all the time, possibly feverish [facility] Progress Noteon 05-15-2025 Progress Note Chronic. Monitor. Adjust as needed. Orders: TSH; Future [facility] Progress Note Due for EGD screenin g with GI. Will reach out to her provider in [place]. Continue prilosec. Normal [facility] Progress Note Due for fibroscan fo r screening with GI. See above. Continue usodiol. Normal [facility] Progress Note [facility] [place] [address] [facility] [id number] Visit Type: Physical PCP: Sudhir Pedraza DO Reason for Visit: Annual Exam (Physical), Ear Fullness (Right ear fullness causing dizziness x1 month. Fullness and dizziness has mostly subsided), and Hot Flashes (Patient reports feeling hot all the time, possibly feverish ) ASSESSMENT AND PLAN Assessment & Plan Annual physical exam Screening labs ordered. Breast cancer screening completed. Orders: Comprehensive metabolic panel; Future CBC; Future Lipid panel; Future Hemoglobin A1c; Future Hyperlipidemia, unspecified hyperlipidemia type Monitor. Treat as indicated. 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 Monitor. Adjust as needed. 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 Will reach out to her provider in [place]. Continue prilosec. Nonalcoholic steatohepatitis (HUGGINS) Due for fibroscan for screening with GI. See above. Continue usodiol. Follow up in about 1 year (around 05/15/2026) for Annual. There are no Patient Instructions on file for this visit. SUBJECTIVE HPI Brissa Jeffery presents for an annual exam. She has the following concerns today: High risk breast clinic Gastro? R ear fullness - was taking supplements if it was infectious? - stopped and resolved on own Feels high temp all the time. Review of Systems Pertinent ROS noted in the HPI and all other systems are negative. Allergies[1] Current Medications[2] Medical History[3] Social History[4] Surgical History[5] Family History[6] OBJECTIVE BP 126/72 (BP Location: Right arm, Patient Position: Sitting, BP Cuff Size: Large adult) Pulse 95 Temp 37.1 ?C (98.8 ?F) (Temporal) Ht 5' 6 (1.676 m) Wt 273 lb (124 kg) SpO2 98% BMI 44.06 kg/m? Physical Exam Constitutional: General: She is not in acute distress. Appearance: Normal appearance. She is obese. HENT: Head: Normocephalic and atraumatic. Right Ear: Tympanic membrane, ear canal and external ear normal. Left Ear: Tympanic membrane, ear canal and external ear normal. Mouth/Throat: Mouth: Mucous membranes are moist. Pharynx: Oropharynx is clear. No posterior oropharyngeal erythema. Eyes: General: No scleral icterus. Extraocular Movements: Extraocular movements intact. Conjunctiva/sclera: Conjunctivae normal. Pupils: Pupils are equal, round, and reactive to light. Neck: Vascular: No carotid bruit. Cardiovascular: Rate and Rhythm: Normal rate and regular rhythm. Heart sounds: No murmur heard. Pulmonary: Effort: Pulmonary effort is normal. No respiratory distress. Breath sounds: Normal breath sounds. No wheezing, rhonchi or rales. Abdominal: General: Abdomen is flat. Bowel sounds are normal. There is no distension. Palpations: Abdomen is soft. There is no hepatomegaly, splenomegaly or mass. Tenderness: There is no abdominal tenderness. There is no guarding. Musculoskeletal: Cervical back: Normal range of motion. No tenderness. Lymphadenopathy: Cervical: No cervical adenopathy. Neurological: Mental Status: She is alert. Psychiatric: Attention and Perception: Attention normal. Mood and Affect: Mood normal. Behavior: Behavior normal. Health Maintenance The 10-year ASCVD risk score (Mary OSORIO, et al., 2019) is: 1.7% Values used to calculate the score: Age: 59 years Sex: Female Is Non- : No Diabetic: No Tobacco smoker: No Systolic Blood Pressure: 126 mmHg Is BP treated: No HDL Cholesterol: 64 mg/dL Total Cholesterol: 141 mg/dL Health Maintenance Due Topic Date Due HIV Screening Never done Derm Melanoma Skin Check Never done MMR Vaccines (1 of 1 - Standard series) Never done Hepatitis B Vaccines (1 of 3 - 19+ 3-dose series) Never done Pneumococcal Vaccine: 50+ Years (1 of 2 - PCV) Never done Zoster Vaccines (1 of 2) Never done Immunization History Administered Date(s) Administered Influenza, Unspecified 07/08/2020 Tdap 10/24/2018, 11/17/2018 Medications Discontinued During This Encounter Medication Reason ibuprofen 200 MG tablet Klever Pedraza DO 05/17/2025 4:06 PM There are no Patient Instructions on file for this visit. [1] Allergies Allergen Reactions Sulfamethoxazole-Trime thoprim Other and Unknown [place] strange on it spacey Light-headed bactrim Seasonal Trimethoprim Dizziness [2] Current Outpatient Medications: cholecalciferol (Vitamin D-3) 125 MCG (5000 UT) capsule, Take 5,000 Units by mouth in the morning. Vitamin C and Zinc combo., Disp: , Rfl: hydroCHLOROthiazide (Microzide) 12.5 MG capsule, Take 1 capsule (12.5 mg) by mouth daily., Disp: 90 capsule, Rfl: 3 ketoconazole (NIZOral) 2 % cream, APPLY A THIN LAYER TO THE AFFECTED AREAS UNDER B (more content not included)... Normal [facility] DBT Breast - bilateral vancee vamsi 05-10-2025 No mammographic evidence of malignancy. ASSESSMENT: Category 2 Benign RECOMMENDATION: Routine screening mammogram in 1 year. Bilateral CANCER RISK ASSESSMENT: This risk assessment is based on patient provided information collected in a risk survey taken at the time of this examination. LIFETIME BREAST CANCER RISK: Selina 8: 23.75% - If greater than or equal to 20%, consider annual mammogram and annual screening Breast MRI or follow up in high risk clinic. Is the patient at elevated risk based on the HBOC criteria? No (Hereditary Breast and Ovarian Cancer) - If Yes, consider genetic counseling and testing with high risk follow up Is the patient at elevated risk based on the Sheffield Syndrome criteria? No - If Yes, consider genetic counseling and testing with high risk follow up. Report Dictated on Electronically Signed By: Beatris Regalado MD Electronically Signed Date/Time: 05/10/2025 3:10 PM [facility] Name[facility]ISSA JEFF[facility] 1965 [id number] Exam Date/Time: 05/10/2025 13:34 Procedure: BI MAMMOGRAM SCREENING TOMOSYNTHESIS BILATERAL Ordering Provider: GARZA KRISTINA Reason For Exam: This exam was performed at [facility] [address] [facility] [address] RISK ALERT: The Cancer Risk Assessment scores below the recommendation of this report contain an outcome above the normal risk range. PATIENT CANCER HISTORY: No Personal History of Cancer FAMILY CANCER HISTORY: Paternal Grandmother Breast Cancer age 55, Stomach Cancer Maternal Aunt Breast Cancer age 55 Maternal Aunt Breast Cancer age 55 Image views: 2D Bilateral CC and MLO views were acquired. 3D Bilateral CC and MLO views were acquired. Images were reviewed with CAD. Markings on images: BB's = Nipples; skin lesions Open redding = Palpable Line = Scar COMPARISON: 04/19/2024 and 07/29/2023 TISSUE DENSITY: BIRADS B - There are scattered areas of fibroglandular density. FINDINGS: No suspicious masses, architectural distortions or suspiciously clustered microcalcifications are identified. There is no evidence of skin thickening or nipple retraction. There are benign bilateral breast calcifications. There are no significant changes when compared with prior studies. [facility] Beatris Regalado MD - 05/10/2025 Patient Name: BRISSA JEFFERY [facility] 1965 [id number] Exam Date/Time: 05/10/2025 13:34 Procedure: BI MAMMOGRAM SCREENING TOMOSYNTHESIS BILATERAL Ordering Provider: GARZA KRISTINA Reason For Exam: This exam was performed at [facility] [address] [facility] [address] [facility] [address] RISK ALERT: The Cancer Risk Assessment scores below the recommendation of this report contain an outcome above the normal risk range. PATIENT CANCER HISTORY: No Personal History of Cancer FAMILY CANCER HISTORY: Paternal Grandmother Breast Cancer age 55, Stomach Cancer Maternal Aunt Breast Cancer age 55 Maternal Aunt Breast Cancer age 55 Image views: 2D Bilateral CC and MLO views were acquired. 3D Bilateral CC and MLO views were acquired. Images were reviewed with CAD. Markings on images: BB's = Nipples; skin lesions Open redding = Palpable Line = Scar COMPARISON: 04/19/2024 and 07/29/2023 TISSUE DENSITY: BIRADS B - There are scattered areas of fibroglandular density. FINDINGS: No suspicious masses, architectural distortions or suspiciously clustered microcalcifications are identified. There is no evidence of skin thickening or nipple retraction. There are benign bilateral breast calcifications. There are no significant changes when compared with prior studies. IMPRESSION: No mammographic evidence of malignancy. ASSESSMENT: Category 2 Benign RECOMMENDATION: Routine screening mammogram in 1 year. Bilateral CANCER RISK ASSESSMENT: This risk assessment is based on patient provided information collected in a risk survey taken at the time of this examination. LIFETIME BREAST CANCER RISK: Selina 8: 23.75% - If greater than or equal to 20%, consider annual mammogram and annual screening Breast MRI or follow up in high risk clinic. Is the patient at elevated risk based on the HBOC criteria? No (Hereditary Breast and Ovarian Cancer) - If Yes, consider genetic counseling and testing with high risk follow up Is the patient at elevated risk based on the Sheffield Syndrome criteria? No - If Yes, consider genetic counseling and testing with high risk follow up. Report Dictated on Electronically Signed By: Beatris Regalado MD Electronically Signed Date/Time: 05/10/2025 3:10 PM EDT [facility] Radiology Study observation (narrative) [facility] DBT Breast - bilateral scree ningOrdered By: Beatris Regalado on 05-10-2025 [facility] Work Phone: Progress Noteon 02-25-2025 Progress Note [facility] [address] [facility] [address] Discharge Notification Patient Name: Brissa Jeffery : 1965 Today's Date: 02/25/2025 Pt insurance denied authorization of follow up visits at [facility]. Recommended patient call her insurance to find out where they will allow her to go to therapy. Thank you for this referral. For any questions on this patient?s course of therapy, please call the clinic for clarification. Alban Mercedes, PT Normal [facility] Nursing Noteon 02-19-2025 Nursing Note Pt arrived from home for a Left thyroid biopsy. Site prepped and samples taken and placed in cytology and affrima. Pt monitored the whole time. Band-Aid placed on site and ice pack given. Home going instructions review with pt. Pt tolerated well and discharged at this time. Normal [facility] US GUIDED THYROID NEEDLE COR E BIOPSY W/ REFLEX AFFIRMAon 02-19-2025 US GUIDED THYROID NEEDLE CORE BIOPSY W/ REFLEX AFFIRMA Patient Name: BRISSA JEFFERY : 1965 Exam Date/Time: 02/19/2025 12:53 Procedure: US GUIDED THYROID NEEDLE CORE BIOPSY W/ REFLEX AFFIRMA Ordering Provider: PEDRAZA BRITTANY Reason For Exam: THYROID NODULE; TiRADS 4 nodule, requiring biopsy EXAMINATION: Ultrasound-guided thyroid nodule biopsy. EXAM DATE AND TIME: 02/19/2025 12:53 PM EDT INDICATION: THYROID NODULE; TiRADS 4 nodule, requiring biopsy ADDITIONAL INFORMATION: None COMPARISON: 01/21/2025 PROCEDURAL PERSONNEL: Pelt Shearer: Cierra Huizar PA-C Attending physician,Adi Driscoll M.D., was available in the department if needed. INFORMED CONSENT: Written informed consent was obtained. The procedure, risks, benefits, and alternatives were discussed. All questions were answered. TIMEOUT: Physician-led timeout was conducted documenting correct patient, procedure, site, fire risk, antibiotics and allergies. COMPLICATIONS: None. ESTIMATED BLOOD LOSS: Less than 10 mL. MEDICATIONS: Antibiotics: None. STERILE TECHNIQUE: All elements of maximal sterile technique were applied: cap, mask, sterile gown, proper hand hygiene including sterile gloves, a large sterile sheet, and hospital-approved cutaneous antisepsis at the site (2% chlorhexidine). A sterile probe cover and sterile gel were also used to ensure ultrasound sterility. ANESTHESIA/SEDATION: Local. PROCEDURE/TECHNIQUE: The patient was brought to the interventional suite and placed in the supine position upon the table. The left neck region was then prepped and draped in the usual aseptic fashion. Local anesthesia was achieved with 1% lidocaine solution. 5 passes were made with 25-gauge needles in the target left thyroid lobe nodule. 3 passes were prepared for routine cytology and 2 passes were prepared for Afirma. Specimens were processed per protocol. Local hemostasis was achieved with manual compression and a sterile dressing was applied. The patient tolerated the procedure well without immediate complication and was transferred from the interventional suite in stable condition. FINDINGS: Ultrasound images redemonstrate the target left nodule better described on the prior ultrasound examination and define the pathway for needle passage. Spot images obtained during fine needle aspiration demonstrates satisfactory needle position within the thyroid nodule. Postprocedural images demonstrate postbiopsy changes without evidence of complication. IMPRESSION: Technically successful uncomplicated biopsy of the target left thyroid lobe nodule. Report Dictated on Electronically Signed By: Cierra Huizar PA-C Electronically Signed Date/Time: 02/19/2025 2:[address] [facility] US Guidance for fine needle aspiration of Thyroid glandon 02-19-2025 Technically successf ul uncomplicated biopsy of the target left thyroid lobe nodule. Report Dictated on Electronically Signed By: Cierra Huizar PA-C Electronically Signed Date/Time: 02/19/2025 2:12 PM EDT [facility] Patient Name: BRISSA JEFFERY : 1965 [id number] Exam Date/Time: 02/19/2025 12:53 Procedure: US GUIDED THYROID NEEDLE CORE BIOPSY W/ REFLEX AFFIRMA Ordering Provider: PEDRAZA BRITTANY Reason For Exam: THYROID NODULE; TiRADS 4 nodule, requiring biopsy EXAMINATION: Ultrasound-guided thyroid nodule biopsy. EXAM DATE & TIME: 02/19/2025 12:53 PM EDT INDICATION: THYROID NODULE; TiRADS 4 nodule, requiring biopsy ADDITIONAL INFORMATION: None COMPARISON: 01/21/2025 PROCEDURAL PERSONNEL: Pelt Shearer: Cierra Huizar PA-C Attending physician,Adi Driscoll M.D., was available in the department if needed. INFORMED CONSENT: Written informed consent was obtained. The procedure, risks, benefits, and alternatives were discussed. All questions were answered. TIMEOUT: Physician-led timeout was conducted documenting correct patient, procedure, site, fire risk, antibiotics and allergies. COMPLICATIONS: None. ESTIMATED BLOOD LOSS: Less than 10 mL. MEDICATIONS: Antibiotics: None. STERILE TECHNIQUE: All elements of maximal sterile technique were applied: cap, mask, sterile gown, proper hand hygiene including sterile gloves, a large sterile sheet, and hospital-approved cutaneous antisepsis at the site (2% chlorhexidine). A sterile probe cover and sterile gel were also used to ensure ultrasound sterility. ANESTHESIA/SEDATION: Local. PROCEDURE/TECHNIQUE: The patient was brought to the interventional suite and placed in the supine position upon the table. The left neck region was then prepped and draped in the usual aseptic fashion. Local anesthesia was achieved with 1% lidocaine solution. 5 passes were made with 25-gauge needles in the target left thyroid lobe nodule. 3 passes were prepared for routine cytology and 2 passes were prepared for Afirma. Specimens were processed per protocol. Local hemostasis was achieved with manual compression and a sterile dressing was applied. The patient tolerated the procedure well without immediate complication and was transferred from the interventional suite in stable condition. FINDINGS: Ultrasound images redemonstrate the target left nodule better described on the prior ultrasound examination and define the pathway for needle passage. Spot images obtained during fine needle aspiration demonstrates satisfactory needle position within the thyroid nodule. Postprocedural images demonstrate postbiopsy changes without evidence of complication. [facility] Cierra Huizar PA -C - 02/19/2025 Patient Name: BRISSA JEFFERY : 1965 Exam Date/Time: 02/19/2025 12:53 Procedure: US GUIDED THYROID NEEDLE CORE BIOPSY W/ REFLEX AFFIRMA Ordering Provider: PEDRAZA BRITTANY Reason For Exam: THYROID NODULE; TiRADS 4 nodule, requiring biopsy EXAMINATION: Ultrasound-guided thyroid nodule biopsy. EXAM DATE & TIME: 02/19/2025 12:53 PM EDT INDICATION: THYROID NODULE; TiRADS 4 nodule, requiring biopsy ADDITIONAL INFORMATION: None COMPARISON: 01/21/2025 PROCEDURAL PERSONNEL: Pelt Shearer: Cierra Huizar PA-C Attending physician,Adi Driscoll M.D., was available in the department if needed. INFORMED CONSENT: Written informed consent was obtained. The procedure, risks, benefits, and alternatives were discussed. All questions were answered. TIMEOUT: Physician-led timeout was conducted documenting correct patient, procedure, site, fire risk, antibiotics and allergies. COMPLICATIONS: None. ESTIMATED BLOOD LOSS: Less than 10 mL. MEDICATIONS: Antibiotics: None. STERILE TECHNIQUE: All elements of maximal sterile technique were applied: cap, mask, sterile gown, proper hand hygiene including sterile gloves, a large sterile sheet, and hospital-approved cutaneous antisepsis at the site (2% chlorhexidine). A sterile probe cover and sterile gel were also used to ensure ultrasound sterility. ANESTHESIA/SEDATION: Local. PROCEDURE/TECHNIQUE: The patient was brought to the interventional suite and placed in the supine position upon the table. The left neck region was then prepped and draped in the usual aseptic fashion. Local anesthesia was achieved with 1% lidocaine solution. 5 passes were made with 25-gauge needles in the target left thyroid lobe nodule. 3 passes were prepared for routine cytology and 2 passes were prepared for Afirma. Specimens were processed per protocol. Local hemostasis was achieved with manual compression and a sterile dressing was applied. The patient tolerated the procedure well without immediate complication and was transferred from the interventional suite in stable condition. FINDINGS: Ultrasound images redemonstrate the target left nodule better described on the prior ultrasound examination and define the pathway for needle passage. Spot images obtained during fine needle aspiration demonstrates satisfactory needle position within the thyroid nodule. Postprocedural images demonstrate postbiopsy changes without evidence of complication. IMPRESSION: Technically successful uncomplicated biopsy of the target left thyroid lobe nodule. Report Dictated on Electronically Signed By: Cierra Huizar PA-C Electronically Signed Date/Time: 02/19/2025 2:12 PM EDT [facility] Radiology Study observation (narrative) [facility] US Guidance for fine needle aspiration of Thyroid glandOrdered By: Cierra Huizar on 02-19-2025 [facility] [employer] Work Phone: [phone] 02-01-[address] to soon to auth will do in May Normal [facility] 36 Your patient has bee n scheduled for their CT on at 10am. If testing requires an insurance authorization, the authorization must be in place 48 hours prior to the scheduled test or testing will be cancelled. Thank you, Central Scheduling [facility] Office Visiton 01-31-2025 Follow-up visit [id number] Brissa Jeffery 1965 F Date Provider Department Center 01/31/2025 [id number] DIXON [facility] PUL None Family History Problem Relation Age of Onset Diabetes Mother Emphysema Mother Heart failure Mother Emphysema Father Hypertension Father Breast cancer Mother's Sister 55 Breast cancer Mother's Sister 55 Lung cancer Mother's Brother 55 Breast cancer Paternal Grandmother 55 Stomach cancer Paternal Grandmother Family Status - Relation Status Age at Mother Father Daughter Alive Mother's Sister Mother's Sister Mother's Brother Maternal Grandmother Maternal Grandfather Paternal Grandmother Paternal Grandfather Level of Service:[address] [place] OFFICE/OUTPATIENT ESTABLISHED [facility] 10 MIN Reason for Visit and Comments: Follow-up [101761] - Pt had a CT on 01/17/[address] [facility] Progress Noteon 01-31-2025 Progress Note 01/31/2025 REFERRING PHYSICIAN: Sudhir Pedraza DO REASON FOR REFERRAL: Chief Complaint Patient presents with Follow-up Pt had a CT on 01/17/25 Chief complaint: Lung nodule and LINDSAY on BiPAP and nocturnal O2 History of Present Illness: Feels well. No problems with the breathing. Sleeps nightly with the BiPAP and the oxygen, cannot sleep without it, does very well. No issues with the machine or the mask. Lets me review her compliance report on her phone. Both she and her know they need to lose weight, it is difficult. ROS: Review of Systems Constitutional: Negative. HENT: Negative. Eyes: Negative. Respiratory: HPI Cardiovascular: Negative. Gastrointestinal: Negative. Endocrine: Negative. Musculoskeletal: Negative. Skin: Negative. Allergic/Immunologic: Negative. Neurological: Negative. Hematological: Negative. Psychiatric/Behavioral : Negative. 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 Allergic rhinitis BRCA1 negative BRCA2 negative Disease of thyroid gland Fibrocystic breast GERD (gastroesophageal reflux disease) 09/13 Hypertension Liver disease 09/13 Lung nodule Obesity Prediabetes Sleep apnea 03/2024 Sleep apnea, obstructive 2018 Past Surgical History Past Surgical History: Procedure Laterality Date APPENDECTOMY BREAST BIOPSY Right 02/17/2024 Adenocarcinoma BREAST LUMPECTOMY Right 02/17/2024 2nd re-excision on 03/29/2024 CHOLECYSTECTOMY COLONOSCOPY HERNIA REPAIR HYSTERECTOMY 2007 age 41 OOPHORECTOMY Right Social History: Social History Socioeconomic History Marital status: Tobacco Use Smoking status: Never Passive exposure: Never Smokeless tobacco: Never Vaping Use Vaping status: Never Used Substance and Sexual Activity Alcohol use: Never Drug use: Never Sexual activity: Never control/protection: Surgical Social Drivers of Health Financial Resource Strain: Low Risk (05/16/2024) Overall Financial Resource Strain (CARDIA) Difficulty of Paying Living Expenses: Not hard at all Food Insecurity: No Food Insecurity (05/16/2024) Hunger Vital Sign Worried About Running Out of Food in the Last Year: Never true Ran Out of Food in the Last Year: Never true Transportation Needs: No Transportation Needs (05/16/2024) PRAPARE - Transportation Lack of Transportation (Medical): No Lack of Transportation (Non-Medical): No Physical Activity: Insufficiently Active (05/16/2024) Exercise Vital Sign Days of Exercise per Week: 5 days Minutes of Exercise per Session: 20 min Stress: No Stress Concern Present (05/16/2024) [employer] [place] [employer] - Occupational Stress Questionnaire Feeling of Stress : Not at all Social Connections: Socially Integrated (05/16/2024) Social Connection and Isolation Panel [NHANES] Frequency of Communication with Friends and Family: More than three times a week Frequency of Social Gatherings with Friends and Family: More than three times a week Attends Orthodox Services: 1 to 4 times per year Active Member of Clubs or Organizations: Yes Attends Club or Organization Meetings: More than 4 times per year Marital Status: Intimate Partner Violence: Patient Declined (05/16/2024) Humiliation, Afraid, Rape, and Kick questionnaire Fear of Current or Ex-Partner: Patient declined Emotionally Abused: Patient declined Physically Abused: Patient declined Sexually Abused: Patient declined Housing Stability: Low Risk (05/16/2024) Housing Stability Vital Sign Unable to Pay for Housing in the Last Year: No Number of Times Moved in the Last Year: 0 Homeless in the Last Year: No Medications: Current Outpatient Medications Medication Sig Dispense Refill cholecalciferol (Vitamin D-3) 125 MCG (5000 UT) capsule Take 5,000 Units by mouth in the morning. Vitamin C and Zinc combo. hydroCHLOROthiazide (Microzide) 12.5 MG capsule Take 1 capsule (12.5 mg) by mouth daily. 90 capsule 3 ibuprofen 200 MG tablet Take 200 mg by mouth every 6 hours as needed. levothyroxine (Tirosint) 112 MCG capsule Take 1 capsule (112 mcg) by mouth every morning (before breakfast). 90 capsule 3 metFORMIN XR (Glucophage-XR) 500 MG 24 hr tablet Take 2 tablets (1,000 mg) by mouth daily (with breakfast). NON FORMULARY daily. SUPER DIGESTIVE ENZYME omeprazole (PriLOSEC) [address] capsule Take 20 mg by mouth every morning (before breakfast). Do not crush or chew. oxymetazoline (Nasal Relief) 0.05 % nasal spray Administer 2 sprays into affected nostril(s) twice a day. Triamcinolone Acetonide (NASACORT AQ NA) Administer 2 sprays into each nostril Nightly. ursodiol (Actigall) 300 MG capsule Take 1 capsule (300 mg) by mouth 2 times daily. 180 capsule 3 No current facility-administered medications for this visit. Allergies: Allergies Allergen Reactions Sulfamethoxazole-Trime thopri (more content not included)... [facility] US EXTREMITY NON VASCULAR LI MITEDon 01-23-2025 US EXTREMITY NON VASCULAR LIMITED Patient Name: BRISSA JEFFERY : 1965 Exam Date/Time: 01/21/2025 13:29 Procedure: US EXTREMITY NON VASCULAR LIMITED Ordering Provider: PEDRAZA BRITTANY Reason For Exam: R dorsal foot nodule Examination: US EXTREMITY NON VASCULAR LIMITED Technique: Hand-held, real-time ultrasound scanning was performed in the area of clinical concern by registered sleep lab technologist. Saved images were reviewed. Clinical Indication: R dorsal foot nodule Comparison: None IMPRESSION: Findings/Impression: Scanning was performed in the anterior clinical concern, along the dorsum of the foot. Within this area, there is a multilobulated 6 x 5 x 4 mm (sagittal, transverse and AP) nonspecific cyst. No internal vascularity was observed. No additional solid or cystic lesion identified. Report Dictated on Electronically Signed By: Kofi Leiva MD Electronically Signed Date/Time: 01/23/2025 8:[address] [facility] US THYROIDon 01-22-2025 US THYROID Patient Name: BRISSA JEFFERY : 1965 Exam Date/Time: 01/21/2025 13:30 Procedure: US THYROID Ordering Provider: PEDRAZA BRITTANY Reason For Exam: monitoring thyroid nodules Exam type: Ultrasound thyroid. CLINICAL INDICATION: Thyroid nodules. COMPARISON: Thyroid ultrasound 03/18/2021, thyroid ultrasound report 05/15/2020 TECHNIQUE: Grayscale sonographic images were obtained of the thyroid. Color Doppler was utilized. FINDINGS: Right Lobe: Echotexture: Heterogenous Size: 2.2 x 1.9 x 4.7 cm. Left Lobe: Echotexture: Heterogenous Size: 2.7 x 2.3 x 4.6 cm. Isthmus: 0.3 centimeters in thickness. Thyroid nodules are as follows: Location: Right inferior thyroid lobe Size: 0.9 x 0.9 x 1.0 cm Composition: Solid Echogenicity: Isoechoic Margins: Smooth Calcifications: None Level of suspicion: TI-RADS* 3: Mildly Suspicious (<5% chance of malignancy) ACR Recommendation: No follow-up indicated based on nodule size Comparison to prior exam: Stable to slightly decreased in size since prior. Location: Right inferior thyroid lobe Size: 0.5 x 1.0 x 0.7 cm Composition: Solid Echogenicity: Isoechoic Margins: Smooth Calcifications: None Level of suspicion: TI-RADS* 3: Mildly Suspicious (<5% chance of malignancy) ACR Recommendation: No follow-up indicated based on nodule size Comparison to prior exam: Stable to slightly decreased in size since prior. Location: Left mid/inferior thyroid lobe Size: 1.9 x 2.0 x 2.9 cm Composition: Solid Echogenicity: Hypoechoic Margins: Smooth Calcifications: None Level of suspicion: TI-RADS* 4: Moderately Suspicious (5-20% chance of malignancy) ACR Recommendation: FNA biopsy Comparison to prior exam: Decrease in size since prior, previously measured up to 3.4 cm. This may be due to differences in measurement techniques. Originally measured up to 3.1 cm in 2019. Location: Left inferior thyroid lobe Size: 0.4 x 1.0 x 1.0 cm Composition: Solid Echogenicity: Hypoechoic Margins: Smooth Calcifications: None Level of suspicion: TI-RADS* 4: Moderately Suspicious (5-20% chance of malignancy) ACR Recommendation: Five years of documented stability, no further follow-up indicated. Comparison to prior exam: No change since prior. Originally measured up to 1.0 cm in 2020. Cervical Lymph nodes: None IMPRESSION: Impression: Thyroid nodules as described above, overall stable to slightly decreased in some cases when compared to prior exams. 2.9 cm left mid/inferior TI RADS 4 nodule does meet criteria for FNA biopsy. Please note: There are other existing guidelines to classify thyroid nodules to determine need for FNA. This decision will be deferred to the ordering physician. *TIRADS Risk for malignancy: TI-RADS 1 - 0 points - (benign) <2% risk TI-RADS 2 - 2 points - (not suspicious) <5% TI-RADS 3 - 3 points - (mildly suspicious) <5% - FNA when >/= 2.5cm. Follow when >1.5cm at 1, 3 and 5 years TI-RADS 4 - 4-6 points - (moderately suspicious) 5-20% - FNA when >/= 1.5cm. Follow when >1cm at 1, 2, 3 and 5 years TI-RADS 5 - 7+ points - (highly suspicious) >20% - FNA when >/= 1cm. Follow when >0.5cm every year for up to 5 years TI-RADS (2017) Reference: Trav Steward ACR Thyroid Imaging, Reporting and Data System (TI-RADS): White Paper of the ACR TI RADS Committee. [facility]. January 2017 Report Dictated on Electronically Signed By: Fabián Palomino DO Electronically Signed Date/Time: 01/22/2025 3:[address] [facility] CT CHEST WO IV CONTRASTon CT CHEST WO IV CONTRAST Patient Name[facility]IS[facility] 1965 [id number] Exam Date/Time: 01/17/2025 09:49 Procedure: CT CHEST WO IV CONTRAST Ordering Provider: MALDONADO ROBERT Reason For Exam: Lung nodule, > 8mm RIGHT SHOULDER: CLINICAL INDICATION: RIGHT SHOULDER PAIN. TECHNIQUE: AP, Grashey, Axillary and Y view COMPARISON: None. FINDINGS: There is no evidence for fracture or dislocation. The glenohumeral joint and acromioclavicular joint are unremarkable. Subchondral cyst is noted within the distal clavicle. No other bone lesion is identified. There is no soft tissue abnormality. IMPRESSION: No acute abnormality. Subchondral cysts within the distal clavicle corresponds to minimal arthritic change. CT CHEST WITHOUT CONTRAST: CLINICAL INDICATION: Follow-up for lung nodule. TECHNIQUE: Transaxial sequence through the chest from apices through the bases at 1 mm reconstruction interval. Coronal and sagittal reconstruction images reviewed. Dose reduction was employed with automated exposure control. COMPARISON: CT from 09/07/2024 and PET/CT from 10/19/2024. FINDINGS: Lungs/airways: No consolidation or atelectasis. Again noted is a left upper lobe nodule with a mean diameter of 9 mm on image 4:134. No new nodule. Pleural spaces: No pleural fluid or thickening. Heart/Great vessels: Normal heart size. No significant coronary artery calcification. Mediastinum/Dimple: No mass or enlarged lymph nodes identified on this non-contrast study. Chest wall and lower neck: No abnormality. Upper abdomen: Generalized diminished attenuation noted throughout the liver as compared to the spleen corresponding to diffuse fatty infiltration. No focal liver lesion identified. Visualized portions of the spleen are normal. The adrenals are unremarkable. Osseous structures: Degenerative change of the thoracic spine is noted. IMPRESSION: Left upper lobe nodule is unchanged from four months ago with a mean diameter of 9 mm. Fleischner guidelines including no recommendations following PET/CT in a nodule in this size range. 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 [facility] [address] Dept: [phone] Dept PHYSICAL THERAPY EVALUATION Patient Name: Brissa Noble Clarisa Jeffery : 1965 Date of Service: 01/18/2025 Referring Provider: Eliu Jackson MD Diagnosis: Muscle strain of right scapular region, initial encounter General Information Reason for referral: R shoulder / scapular pain Mechanism of injury: Pt reports she began experiencing R scapular / shoulder pain 6-8 months ago of unknown onset. She reports no change in symptoms since onset. 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 PSHX: Brissa has a past surgical history that includes Breast lumpectomy (Right, 02/17/2024); Breast biopsy (Right, 02/17/2024); Hysterectomy (2006); Oophorectomy (Right); Appendectomy; Cholecystectomy; Hernia repair; and Colonoscopy. Have you experienced any anxiety or depression? No Have you experienced thoughts of self-harm or suicidal thoughts? No [employer] Reviewed: Yes Physician follow-up appointment?: No Previous Treatment: Yes massage therapy with temporary relief. Stretch lab without relief. companion caregiver once per month. Extremity Dominance: left Subjective Pain Assessment Severity: Current 3/10, Best 1-2/10, Worst 5-7/10 Type: chronic Location: R inferior scapula Descriptors: dull, achy, burning Aggravating: pressure, pressing on the spot Relieving: none Prior Level of Function: Independent without difficulty Current Level of Function: She reports pain while working and sleeping. Patient?s Stated Goal: Relieve pain Outcome Measures QuickDASH: 9% impairment Objective SHOULDER Posture: mild rounded shoulder posture, mildly accentuated thoracic kyphosis Palpation: tenderness to palpation R infraspinous sandra of scapular and R thoracic paraspinals T3-4 Thoracic Joint Mobility: Hypomobility T1-6 CPA's without pain Cervical AROM (% of normal) (*pain) Date 01/18/2025 Flexion 100 Extension 100 Side Bend R 75 Side Bend L 75 Rotation R 100 Rotation L 100 NT = not tested Thoracic ROM: good mobility overall with flexion and extension without pain Shoulder AROM (degrees) (*pain) Date 01/18/2025 R L Flexion 165* 165 Abduction 180* 180 ER 100 100 IR 90 90 NT = not tested Apley's Scratch Test (*pain) Date 01/18/2025 R L ER T4 T4 IR T7 T7 NT = not tested Upper Extremity Strength (*pain) Date 01/18/2025 R L Shoulder Flexion 5/5 5/5 Shoulder ABD 5/5 5/5 Shoulder ER 5/5 5/5 Shoulder IR 5/5 5/5 Elbow Flex 5/5 5/5 Elbow Ext 5/5 5/5 NT = not tested Shoulder Special Tests Dian: Right negative and Left negative Cross Body Adduction: Right negative and Left negative Painful Arc: Right negative and Left negative Empty Can: Right negative and Left negative Scapular Strength (*pain) Date 01/18/2025 R L Mid Trap 4/5 4/5 Lower Trap 4/5 4/5 NT = not tested Assessment Pt presents to therapy today with complaints of R scapular pain which began 6-8 months ago of unknown onset. Pt reports difficulty with working and sleeping secondary to pain. Pt presentation is consistent with diagnosis of R scapular trigger points noted by tenderness to palpation over musculature at infraspinous fossa, mid and low trap weakness, kyphotic postural alignment, hypomobile thoracic spine and pain with end AROM shoulder flexion and abduction. Pt will benefit from skilled therapy to address above deficits in order to promote a return to pain free work. Evaluation complexity is low secondary to: patient has 3 or more personal factors and/or comorbidities that will affect plan of care, therapy will be addressing 3 or more elements, and clinical presentation is stable. Body Systems Affected: musculoskeletal and neuromuscular Rehab Potential: Good Learning Preferences: demonstration, explanation, and performance Barriers to Rehab: chronicity and comorbidities Goals General/Ortho Patient will be independent with HEP. (Initiated) Start: 01/18/25 Expected End: 03/20/25 Pt will improve score on Quick Dash to 0% impairment to demonstrate a return to pain free reaching overhead (Initiated) Start: 01/18/25 Expected End: 03/20/25 Pt will demonstrate pain free R shoulder AROM abduction and flexion to promote a return to pain free [place] (Initiated) Start: 01/18/25 Expected End: 03/20/25 Pt will improve bilat (more content not included)... Normal [facility] Office Visiton 01-17-2025 Follow-up visit [id number] Brissa Jeffery 1965 F Date Provider Department Center 01/17/2025 [id number] JACKSON [facility] Spo None Family History Problem Relation Age of Onset Diabetes Mother Emphysema Mother Heart failure Mother Emphysema Father Hypertension Father Breast cancer Mother's Sister 55 Breast cancer Mother's Sister 55 Lung cancer Mother's Brother 55 Breast cancer Paternal Grandmother 55 Stomach cancer Paternal Grandmother Family Status - Relation Status Age at Mother Father Daughter Alive Mother's Sister Mother's Sister Mother's Brother Maternal Grandmother Maternal Grandfather Paternal Grandmother Paternal Grandfather Level of Service:16513 [place] OFFICE/OUTPATIENT NEW LOW MDM 30 MINUTES Reason for Visit and Comments: New Patient [542] Shoulder Pain [043613] - Right Normal [facility] Progress Noteon 01-17-2025 Progress Note Strain scapula [facility] [place] [address] [facility] [address] Dept: [phone] Dept Chief Complaint Patient presents with New Patient Shoulder Pain Right Subjective History of Present Illness: Brissa Jeffery is a 59 y.o. left hand dominant female who presents today for evaluation of right shoulder pain. Location: posterior, scapular Onset: 6-8 months Injury: no, worsening Quality: aching and throbbing Mechanical symptoms: no Radiation of symptoms: no Severity: 3/10 at rest and 7/10 at worst Exacerbating factor(s): direct pressure and massages, and leaning on her shoulder also sleeping on her right side causes pain. 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 Respiratory: Breathing comfortably on room air. No respiratory distress. Skin: Warm, dry, intact. No visible rashes or erythema overlying area of focused exam. Physical Exam Musculoskeletal: Right shoulder: Tenderness (Inferior medial border of the scapula and rhomboid muscle) present. No swelling, deformity or crepitus. Normal range of motion. Normal strength. Normal pulse. Arms: Comments: Range of motion full Supraspinatus muscle strength normal Infraspinatus muscle strength normal Subscapularis muscle strength normal Biceps muscle strength normal Speed's test negative Hawkin's test negative Impingement test negative Peoria's test negative Sulcus test negative Scarf test negative Spurling test negative External Notes No pertinent interval updates Labs Lab Results Component Value Date HGBA1C 5.9 (H) 06/07/2024 Lab Results Component Value Date CREATININE 0.99 09/06/2024 Imaging Images reviewed with patient today I have personally reviewed the images pertinent to the appointment today X-ray, CT scan, PET scan reviewed EMG/NCT No interval studies Procedure No procedures completed today Assessment Diagnosis Plan 1. Muscle strain of right scapular region, initial encounter Ambulatory referral to Physical Therapy 2. Acute pain of right shoulder XR shoulder 2+ views right 3. Pain of right scapula [facility] Plan -Discussed with the patient the nature of muscular tears. -Discussed options for activity modification. Other treatments to include icing and elevation. -Discussed possible treatment modalities. -Patient may consider wearing compression sleeve for comfort -Discussed gentle stretching regimen. Progressive eccentric strengthening regime -Questions answered. -Written patient information provided in the AVS. -Will prescribe PT at [facility].. No follow-ups on file. Eliu Jackson MD 01/17/2025 10:50 AM Please note that portions of this note may have been completed with voice recognition software. Documentation reviewed prior to signing but minor errors in senior trainer may have occurred. Normal [facility] Office Visiton 01-15-2025 Follow-up visit [id number] Brissa Jeffery 1965 F Date Provider Department Center 01/15/2025 [id number] PEDRAZA [facility] Family History Problem Relation Age of Onset Diabetes Mother Emphysema Mother Heart failure Mother Emphysema Father Hypertension Father Breast cancer Mother's Sister 55 Breast cancer Mother's Sister 55 Lung cancer Mother's Brother 55 Breast cancer Paternal Grandmother 55 Stomach cancer Paternal Grandmother Family Status - Relation Status Age at Mother Father Daughter Alive Mother's Sister Mother's Sister Mother's Brother Maternal Grandmother Maternal Grandfather Paternal Grandmother Paternal Grandfather Level of Service:[id number] [place] OFFICE/OUTPATIENT ESTABLISHED HIGH MDM 40 MIN Reason for Visit and Comments: Follow-up [555771] - 6 week follow up Normal [facility] Progress Noteon 01-15-2025 Progress Note [facility] [place] [address] [facility] [address] Visit Type: Follow Up Appointment PCP: Sudhir Pedraza DO Reason for Visit: Follow-up (6 week follow up) Assessment and Plan Assessment & Plan Multinodular goiter F/up imaging advised on last scan. Repeat ordered. Orders: US thyroid; Future Subcutaneous nodule of right foot Characterize nodules for piece of mind with US. Likely ganglion cyst. Orders: US extremity non vascular limited; Future Pain of right scapula Location of pain favors intercostal, trap v rhomboid strain. 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 Orders: [facility]; Future Follow up for as scheduled in April. On this date, 01/18/2025 I have spent 56 minutes reviewing previous notes, test results and [id number] with the patient discussing the diagnosis, pathophysiology, and management, as well as documenting on the day of the visit. There are no Patient Instructions on file for this visit. Subjective HPI Urosodiol - gastro refills left over. Will take over refills once supply is exhausted. This is for mgmt of her NAFLD. Constipation. Increased fatigue - sleeping longer She suspects thyroid level is off. She is now doing well on a good regimen with her Bipap with 2l O2. R medial shoulder blade pain. Deep and medially located along the shoulder blade. Massage helps, but returns later. L hip flexor - stretches help. She is trying to get to a good point with her stretching and knowledge of her lungs before she pursues an exercise regimen. Review of Systems Pertinent ROS noted in the HPI and all other systems are negative. Current Outpatient Medications Medication Sig Dispense Refill cholecalciferol (Vitamin D-3) 125 MCG (5000 UT) capsule Take 5,000 Units by mouth in the morning. Vitamin C and Zinc combo. hydroCHLOROthiazide (Microzide) 12.5 MG capsule Take 1 capsule (12.5 mg) by mouth daily. 90 capsule 3 ibuprofen 200 MG tablet Take 200 mg by mouth every 6 hours as needed. levothyroxine (Tirosint) 112 MCG capsule Take 1 capsule (112 mcg) by mouth every morning (before breakfast). 90 capsule 3 NON FORMULARY daily. SUPER DIGESTIVE ENZYME omeprazole (PriLOSEC) [address] capsule Take 20 mg by mouth every morning (before breakfast). Do not crush or chew. oxymetazoline (Nasal Relief) 0.05 % nasal spray Administer 2 sprays into affected nostril(s) twice a day. Triamcinolone Acetonide (NASACORT AQ NA) Administer 2 sprays into each nostril Nightly. ursodiol (Actigall) 300 MG capsule Take 1 capsule (300 mg) by mouth 2 times daily. 180 capsule 3 metFORMIN XR (Glucophage-XR) 500 MG 24 hr tablet Take 2 tablets (1,000 mg) by mouth daily (with breakfast). No current facility-administered medications for this visit. 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 Physical Exam GEN: awake, alert, non-diaphoretic, no psychomotor agitation, no acute distress HEENT :Head: atraumatic, normocephalic, no rashes noted, no lesions noted Cardiopulmonary: no increased respiratory effort, speaking in clear sentences, I:E ratio WNL Neuro: cranial nerves grossly normal, speech normal rate and rhythm, orientation arrived to appointment on time with no prompting, moved both upper extremities equally Pysch: appearance, behavior, and attitude- well groomed, pleasant, cooperative Ext: R dorsal foot - well circumscribed, mobile nodule; no overlying skin changes. Medications Discontinued During This Encounter Medication Reason metFORMIN XR (Glucophage-XR) 500 MG 24 hr tablet Reorder Sudhir Pedraza DO 01/18/2025 4:[address] [facility] Progress Note F/up imaging advised on last scan. Repeat ordered. Orders: US thyroid; Future [facility] [id number] 12-25-2024 [id number] Noted, I'll keep an eye out for any PA's that may come across [facility] 36on 12-25-2024 36 Rx #: [id number] Pharmacy comment: CAN THIS BE CHANGED TO TABLETS FOR LOWER COST TO PT, PLEASE RESEND TABLETS IF SO. [facility] 36on 11-29-2024 36 ROSA form mailed to patient's home for Myriad MyRisk results. Once received back needs faxed to [phone] per Peggy at [facility]. [facility] Office Visiton 11-29-2024 Follow-up visit [id number] Brissa Jeffery 1965 F Date Provider Department Center 11/29/2024 [id number] GARZA [facility] BRS None Family History Problem Relation Age of Onset Diabetes Mother Emphysema Mother Heart failure Mother Emphysema Father Hypertension Father Breast cancer Mother's Sister 55 Breast cancer Mother's Sister 55 Lung cancer Mother's Brother 55 Breast cancer Paternal Grandmother 55 Stomach cancer Paternal Grandmother Family Status - Relation Status Age at Mother Father Daughter Alive Mother's Sister Mother's Sister Mother's Brother Maternal Grandmother Maternal Grandfather Paternal Grandmother Paternal Grandfather Level of Service:99002 [place] OFFICE/OUTPATIENT ESTABLISHED MOD MDM 30 MIN Reason for Visit and Comments: 6 Month Follow-up [671] - HR follow up-pt states that she has a small spot on the side of the left breast she would like to have checked out [facility] Progress Noteon 11-29-2024 Progress Note [facility] Dr. Vonnie Garza M.D. Chief Complaint Patient presents with 6 Month Follow-up HR follow up-pt states that she has a small spot on the side of the left breast she would like to have checked out History of Present Illness: Brissa Jeffery is a 59 y.o. female who presents for high risk followup. She had noticed a right breast skin lesion intermittently throughout the past 2 years and brought it to the attention of her ent surgeon who performed an excision. This revealed adenocarcinoma and he then completed excision to negative margins. Recommended a follow-up with breast surgery for completion given the location of the skin cancer on the breast. Thankfully mammogram and MRI were negative for any associated lesions. She continues followup for high risk evaluation given family history. The patient denies any palpable breast masses or nipple discharge. She notes a recent purple spot on the left breast which looks consistent with venous appearance. Patient is postmenopausal. She is a never smoker. Family history of breast cancer in a paternal grandmother at age 55, and a maternal aunt at age 55, and and another maternal aunt also at age 55. Also has a history of lung cancer in a maternal uncle at age 55 and stomach cancer in her paternal grandmother. She was recently noted to have a new 9 mm left upper lobe pulmonary nodule, has follow up imaging pending for evaluation. PET/CT revealed mild increased activity with uncertain etiology at this nodule. No other complaints at this time. Imaging: no recent breast imaging for review Pathology: Case Report Surgical Pathology Report Case: [id number] Authorizing Provider: Elvin Cortez MD Collected: 03/12/2024 02:01 PM Ordering Location: [facility] Received: 03/12/2024 02:03 PM [facility] Pathologist: Reg Neumann MD Specimen: Slide(s), [address] [id number] FINAL DIAGNOSIS A. 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 Diagnosis Comment Many thanks for sending in consultation this specimen from the lateral breast of a 58-year-old female. Clinically, the differential diagnosis included a neoplasm of uncertain behavior, dermatofibroma, or cyst. Histologic sections reveal a deep dermal proliferation of variably sized cribriform nodules and scattered ducts with amorphous basophilic frothy secretions and occasional eosinophilic secretions embedded in a desmoplastic stroma. Cytologically, the lesional cells demonstrate somewhat uniform enlarged ovoid nuclei, vesicular chromatin, basophilic nucleoli, and small amounts of eosinophilic cytoplasm. Enclosed stains performed at the outside institution are reviewed at the [facility] with appropriate controls. The ductal cells are positive for CK7, pankeratin, and CD117 (weak). The SOX10 stain highlights a subset of the ductal cells and peripheral myoepithelial cells. The SMMHC and p63 stains are negative negative for myoepithelial cells. The lesional cells are negative for CK20, estrogen receptor, progesterone receptor, GATA3, and Jemison-1. In order to further evaluate the lesion, additional staining is performed at the [facility] with appropriate controls on the provided slides. The lesional cells are positive for S100 and negative for driscoll TRK. The next generation sequencing studies were negative for effusions associated with head and neck neoplasms (see separate report). This is a very challenging case. 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 This tumor may show immunoreactivity for S100 protein, but is typically negative for myopathy Toro marker such as p63 and SMMHC. I am unable to find in the literature where this tumor has been studied for expression of SOX10. Reexcision with negative margins and continued clinical follow-up are recommended. This case was also reviewed by Dr. Hope of the breast pathology service who agrees that the that this is unlikely to be a breast primary carcinoma. Clinical correlation remains essential. Thank you for sending this case in consultation. Please call the Dermatopathology Consultation Service at [phone] with questions or if additional follow-up information becomes available regarding this patient. This case was reviewed in conjunction with the Dermatopathology Fellow, Dr. Keys. Laboratory Developed Test (LDT) Disclaimer: Performance characteristics of immunohistochemical, immunofluorescent and chromogenic in-situ hybridization tests have been determined by the performing laboratory within [facility]?s [facility] Pathology and Laboratory Medicine Department ([facility], [facility], [facility], [place] (more content not included)... [facility] Office Visiton 11-27-2024 Follow-up visit [id number] Brissa Jeffery 1965 F Date Provider Department Center 11/27/2024 [id number] PEDRAZA [facility] Family History Problem Relation Age of Onset Diabetes Mother Emphysema Mother Heart failure Mother Emphysema Father Hypertension Father Breast cancer Mother's Sister 55 Breast cancer Mother's Sister 55 Lung cancer Mother's Brother 55 Breast cancer Paternal Grandmother 55 Stomach cancer Paternal Grandmother Family Status - Relation Status Age at Mother Father Daughter Alive Mother's Sister Mother's Sister Mother's Brother Maternal Grandmother Maternal Grandfather Paternal Grandmother Paternal Grandfather Level of Service:22469 [place] OFFICE/OUTPATIENT ESTABLISHED HIGH MDM 40 MIN Reason for Visit and Comments: Discuss Medications [876] - Discuss medications. [facility] Progress Noteon 11-27-2024 Progress Note [facility] [place] [id number] 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 Gomez - [facility] Fibroscan 2020 - F2 Obstructive sleep apnea syndrome Overview Bipap. Followed by Dr. Maldonado Primary hypertension History of esophageal stricture Overview Previous dilatation. History of thrombocytopenia Overview Prior eval with hematology - [place] ITP v liver v bone marrow - determined no need for bone marrow biopsy. Monitor CBC. 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 Carter who consulted with [facility] Dr. Lewis - follow with US annually and watch for sxs - GI workup with EGD and image pancreas Multinodular goiter Overview US 01/24/24: R lobe - well-circumscribed heterogeneous nodule 1.2 x 1.2 x 1.1cm; L lobe - heterogeneous well-circumscribed nodule 1.1 x 1.1 x 0.9cm, another well-circumscribed heterogenous nodule with a hypoechoic halo 3.1 x 2.1 x 2.4cm with increased color blood flow (biopsy recommended for dominant L nodule) Last biopsy with Dr. Gleason was 02/27/24 showing a benign colloid nodule. [place] category II. US 11/09/22: multiple solid nodules in L lobe, largest solid nodule 3.6 x 2.3 x 2.3 cm, multiple nodules in R lobe, largest [id number]. US 10/20/21: R thyroid lobe 2 nodules, lower pole 1.2 x 1.1 x 1.1cm, TR4 nodule; local 0.4 x 0.5 x 0.5cm, TR3 nodule Mitral valve problem Overview Echo 12/09/21 ([place]): Mitral valve thickening noted on echo. Mildly enlarged LA. Mildly dilated aortic root. Echo 02/24/24 ([place]): LVEF 60% (stable) Mildly enlarged LA Bileaflet diffuse mitral valve thickening Normal aortic root. Morbid obesity (HCC) Benign cyst of right kidney Overview Incidental. 11mm (2021 - [facility]) Most of the time taken for this visit was spent in investigation and review of her prior records and consolidating the information. Follow up in about 6 weeks (around 01/08/2025) for weight management. On this date, 12/07/2024 I have spent 56 minutes reviewing previous notes, test results and [id number] with the patient discussing the diagnosis, pathophysiology, and management, as well as documenting on the day of the visit. There are no Patient Instructions on file for this visit. Subjective HPI This is a summary of her current specialists and conditions: Gastro - urosodiol and digestive enzymes - esophageal stricture - h/o dilatation (GERD worse afterwards) - periodic EGD for nava's q3yr (non dysplastic) - HUGGINS - fibroscan from 2020 Cardiology - mitral valve thickening (Last echo 02/2024) Urology - cysto was fine - protein in urine - cyst on kidney - d-mannose Endocrine - monitors hypothyroidism and thyroid nodules - surgeon (Dr. Gleason) has done FNA and consideration for surgery or ablation Obesity mgmt - feels that her weight contributes a lot to her other problems and wants to take a more proactive approach to her lifestyle habits - she takes metformin Psych - using Better help for stress Delinquency Counselor - Michael tumor; 2019 - R ovary - vaginal US yearly advised High risk breast clinic - monitored yearly Review of Systems Pertinent ROS noted in the HPI and all other systems are negative. Current Outpatient Medications Medication Sig Dispense Refill cholecalciferol (Vitamin D-3) 125 MCG (5000 UT) capsule Take 5,000 Units by mouth in the morning. Vitamin C and Zinc combo. ibuprofen 200 MG tablet Take 200 mg by mouth every 6 hours as needed. NON FORMULARY daily. SUPER DIGESTIVE ENZYME omeprazole (PriLOSEC) [address] capsule Take 20 mg by mouth every morning (before breakfast). Do not crush or chew. oxymetazoline (Nasal Relief) 0.05 % nasal spray Administer 2 sprays into affected nostril(s) twice a day. Triamcinolone Acetonide (NASACORT AQ NA) Administer 2 sprays into each nostril Nightly. hydroCHLOROthiazide (Microzide) 12.5 MG capsule Take 1 capsule (12.5 mg) by mouth daily. 90 capsule 3 metFORMIN XR (Glucophage-XR) 500 MG 24 hr tablet Take 1 tablet (500 mg) by mouth daily (with breakfast). 90 tablet 3 Tirosint 112 MCG capsule Take 1 capsule (112 mcg) by mouth every morning (before breakfast). 90 capsule 3 ursodiol (Actigall) 300 MG capsule Take 1 capsule (300 mg) by mouth 2 times daily. 180 capsule 3 No current facility-administered medications for this visit. Patient Active Problem List Diagnosis Date Noted History of esophageal stricture 02 (more content not included)... [facility] 36on 11-21-2024 36 Booked for an OV on 11/27/24 with PCP [place] [id number] Confirmed auth is in WQ and will be obtained closer to appt date. Follow up with Dr. Maldonado is scheduled in [place] on 01/31. LVM for pt to call back to confirm follow up date/time. [facility] 36 Sent secure chat message to [facility] central scheduling and they contacted patient directly to schedule CT chest 01/17/2025 in [place]. Will send to referral coordinators to obtain Auth closer to time of imaging. Patient should have appointment with Dr. Maldonado after imaging. [facility] 36 Too early to auth wi ll do closer to DOS [facility] 36on 11-20-2024 36 Your patient has bee n scheduled for their CT Chest without contrast on 01/17/25 at [facility]. If testing requires an insurance authorization, the authorization must be in place 48 hours prior to the scheduled test or testing will be cancelled. Thank you, Central Scheduling [facility] 36 Signed, thank you [facility] [address] Dr. Maldonado, I have pended order for chest CT. Thanks [facility] 36 Recommendations are now available for provider review from discussion 11/20/24. [facility] 36on 11-15-2024 36 Thanks. Can you call and let them know? [facility] 36on 11-14-2024 36 Any updates on this?? [facility] Office Visiton 11-14-2024 Follow-up visit [id number] Brissa Jeffery 1965 F Date Provider Department Center 11/14/2024 [id number]-LFEKNUELIU SOLIMAN [facility] PUL None Family History Problem Relation Age of Onset Diabetes Mother Emphysema Mother Heart failure Mother Emphysema Father Hypertension Father Breast cancer Mother's Sister 55 Breast cancer Mother's Sister 55 Lung cancer Mother's Brother 55 Breast cancer Paternal Grandmother 55 Stomach cancer Paternal Grandmother Family Status - Relation Status Age at Mother Father Daughter Alive Mother's Sister Mother's Sister Mother's Brother Maternal Grandmother Maternal Grandfather Paternal Grandmother Paternal Grandfather Level of Service:64598 [place] OFFICE/OUTPATIENT ESTABLISHED LOW [facility] 20 MIN Reason for Visit and Comments: Follow-up [050658] [facility] Progress Noteon 11-14-2024 Progress Note Answers submitted by the patient for this visit: Pulmonology Questionnaire (Submitted on 11/11/2024) Chief Complaint: Primary symptoms Do you have chest tightness?: Yes Do you have a cough?: Yes Do you experience frequent throat clearing?: Yes Do you have a hoarse voice?: Yes Do you have shortness of breath?: Yes Chronicity: recurrent When did you first notice your symptoms?: more than 1 month ago How often do your symptoms occur?: intermittently Since you first noticed this problem, how has it changed?: gradually improving Do you have chest pain?: Yes Do you have shortness of breath that occurs with effort or exertion?: Yes Do you have ear congestion?: Yes Do you have ear pain?: Yes Do you have headaches?: Yes Do you have heartburn?: Yes Do you have fatigue?: Yes Do you have muscle pain?: Yes Do you have nasal congestion?: Yes Do you have post-nasal drip?: Yes Do you have a runny nose?: Yes Do you have sneezing?: Yes Which of the following makes your symptoms worse?: any activity, change in weather, climbing stairs, eating, exercise, exposure to fumes, exposure to smoke, pollen, strenuous activity, URI Risk factors for lung disease: smoking/tobacco exposure 11/14/2024 REFERRING PHYSICIAN: Sudhir Pedraza DO REASON FOR REFERRAL: Chief Complaint Patient presents with Follow-up Chief complaint: Lung nodule, LINDSAY on BiPAP and nocturnal oxygen History of Present Illness: Doing well with the BiPAP and the oxygen, generally sleeping well. Good days and bad days with how she feels (see ROS). She and her are having some understandable anxiety about the lung nodule. ROS: Review of Systems Constitutional: Negative. HENT: Positive for ear pain, postnasal drip, rhinorrhea and sneezing. Eyes: Negative. Respiratory: Positive for cough and shortness of breath. HPI Cardiovascular: Positive for chest pain. Gastrointestinal: Negative. Endocrine: Negative. Musculoskeletal: Positive for myalgias. Skin: Negative. Allergic/Immunologic: Negative. Neurological: Positive for headaches. Hematological: Negative. Psychiatric/Behavioral : Negative. 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 Allergic rhinitis BRCA1 negative BRCA2 negative Disease of thyroid gland Fibrocystic breast GERD (gastroesophageal reflux disease) 09/13 Hypertension Liver disease 09/13 Obesity Prediabetes Sleep apnea 03/2024 Sleep apnea, obstructive 2018 Past Surgical History Past Surgical History: Procedure Laterality Date APPENDECTOMY BREAST BIOPSY Right 02/17/2024 Adenocarcinoma BREAST LUMPECTOMY Right 02/17/2024 2nd re-excision on 03/29/2024 CHOLECYSTECTOMY COLONOSCOPY HERNIA REPAIR HYSTERECTOMY age 41 OOPHORECTOMY Right Social History: Social History Socioeconomic History Marital status: Tobacco Use Smoking status: Never Passive exposure: Never Smokeless tobacco: Never Vaping Use Vaping status: Never Used Substance and Sexual Activity Alcohol use: Never Drug use: Never Sexual activity: Never control/protection: Surgical Social Drivers of Health Financial Resource Strain: Low Risk (05/16/2024) Overall Financial Resource Strain (CARDIA) Difficulty of Paying Living Expenses: Not hard at all Food Insecurity: No Food Insecurity (05/16/2024) Hunger Vital Sign Worried About Running Out of Food in the Last Year: Never true Ran Out of Food in the Last Year: Never true Transportation Needs: No Transportation Needs (05/16/2024) PRAPARE - Transportation Lack of Transportation (Medical): No Lack of Transportation (Non-Medical): No Physical Activity: Insufficiently Active (05/16/2024) Exercise Vital Sign Days of Exercise per Week: 5 days Minutes of Exercise per Session: 20 min Stress: No Stress Concern Present (05/16/2024) [employer] [place] [employer] - Occupational Stress Questionnaire Feeling of Stress : Not at all Social Connections: Socially Integrated (05/16/2024) Social Connection and Isolation Panel [NHANES] Frequency of Communication with Friends and Family: More than three times a week Frequency of Social Gatherings with Friends and Family: More than three times a week Attends Orthodox Services: 1 to 4 times per year Active Member of Clubs or Organizations: Yes Attends Club or Organization Meetings: More than 4 times per year Marital Status: Intimate Partner Violence: Patient Declined (05/16/2024) Humiliation, Afraid, Rape, and Kick questionnaire Fear of Current or Ex-Partner: Patient declined Emotionally Abused: Patient declined Physically Abused: Patient declined Sexually Abused: Patient declined Housing Stability: Low Risk (05/16/2024) Housing Stability Vital Sign Unable to Pay for Housing in the Last Year: No Number of Times Moved in the Last Year: 0 Homeless in the Last Year: No (more content not included)... [facility] 36on 10-22-2024 36 Contacted patient about the changes of network is Mary BORJA starting on Oct 24, patient stated that she will be getting new insurance starting Oct 24 and she does not want us to cancel her appointment at this time. Patient is aware she needs to update the office with her new coverage details when she receives them [facility] CT MAXILLOFACIAL WO IV CONTR Vicky 10-21-2024 CT MAXILLOFACIAL WO IV CONTRAST Patient Name[facility]ISSA JEFFERY [facility] 1965 [id number] Exam Date/Time: 10/16/2024 08:01 Procedure: CT MAXILLOFACIAL WO IV CONTRAST Ordering Provider: WHITE MARK Reason For Exam: j33.9 EXAMINATION: CT MAXILLOFACIAL WO IV CONTRAST CLINICAL HISTORY: j33.9 nasal polyp COMPARISON: None TECHNIQUE: Thin isotropic axial images were obtained through the paranasal sinuses without intravenous contrast. Dose reduction was employed with automated exposure control. FINDINGS: Surgical changes: Right total ethmoidectomies and left posterior ethmoidectomies. Left sphenoid sinusotomy. RIGHT: Frontal, Anterior Ethmoid and Maxillary Sinuses: Mild polypoid mucosal thickening in the right maxillary sinus. The right frontal sinus and anterior ethmoidectomy cavity are clear. Maxillary Outflow Tract: Clear. Sphenoid and Posterior Ethmoid Sinuses: Clear. Sphenoethmoidal Recesses: Clear. LEFT: Frontal, Anterior Ethmoid and Maxillary Sinuses: Minimal mucosal thickening in the left maxillary sinus. The left frontal sinus and anterior ethmoid air cells are clear. Maxillary Outflow Tract: Clear. Sphenoid and Posterior Ethmoid Sinuses: Clear. Sphenoethmoidal Recesses: Sphenoid sinusotomy defect is clear. Nasal Cavity: No nasal masses. The nasal septum is intact with probable prior septoplasty. Facial Soft Tissues: The retroantral and premaxillary fat are preserved. Skull Base and Orbits: Cribriform plate: Dehiscent. Lamina papyracea: Intact. Olfactory recesses: Symmetric, measuring greater than 7 mm, consistent with a Keros III classification. Sphenoid sinus anatomy: Normally pneumatized, with the sphenoid sinus abutting the anterior wall of the sella (presellar). Optic nerve canals are adequately covered. Carotid canals are adequately covered. Anterior ethmoid artery: Anterior ethmoid notches are protected, abutting the fovea ethmoidalis. Onodi cell: Absent. Sven cell: Absent. IMPRESSION: 1. Previous ethmoidectomies bilaterally and left sphenoid sinusotomy. No evidence of sinus drainage pathway obstruction. 2. Mild polypoid mucosal thickening in the right maxillary sinus and minimal mucosal thickening in the left maxillary sinus. Other paranasal sinuses are clear. 3. No nasal polyp is identified; please correlate with speculum exam. 4. The cribriform plate appears thin or dehiscent. Report Dictated on Electronically Signed By: Josr Yoon MD Electronically Signed Date/Time: 10/21/2024 8:43 AM EST Pt sts right nasal polyp Had previous CT at [facility] x 5 yrs ago [facility] CT Maxillofacial region c [facility] 10-21-2024 1. Previous ethmoidectomies bilaterally and left sphenoid sinusotomy. No evidence of sinus drainage pathway obstruction. 2. Mild polypoid mucosal thickening in the right maxillary sinus and minimal mucosal thickening in the left maxillary sinus. Other paranasal sinuses are clear. 3. No nasal polyp is identified; please correlate with speculum exam. 4. The cribriform plate appears thin or dehiscent. Report Dictated on Electronically Signed By: Josr Yoon MD Electronically Signed Date/Time: 10/21/2024 8:43 AM [facility] Patient Name: BRISSA JEFFERY : 1965 Exam Date/Time: 10/16/2024 08:01 Procedure: CT MAXILLOFACIAL WO IV CONTRAST Ordering Provider: WHITE MARK Reason For Exam: j33.9 EXAMINATION: CT MAXILLOFACIAL WO IV CONTRAST CLINICAL HISTORY: j33.9 nasal polyp COMPARISON: None TECHNIQUE: Thin isotropic axial images were obtained through the paranasal sinuses without intravenous contrast. Dose reduction was employed with automated exposure control. FINDINGS: Surgical changes: Right total ethmoidectomies and left posterior ethmoidectomies. Left sphenoid sinusotomy. RIGHT: Frontal, Anterior Ethmoid and Maxillary Sinuses: Mild polypoid mucosal thickening in the right maxillary sinus. The right frontal sinus and anterior ethmoidectomy cavity are clear. Maxillary Outflow Tract: Clear. Sphenoid and Posterior Ethmoid Sinuses: Clear. Sphenoethmoidal Recesses: Clear. LEFT: Frontal, Anterior Ethmoid and Maxillary Sinuses: Minimal mucosal thickening in the left maxillary sinus. The left frontal sinus and anterior ethmoid air cells are clear. Maxillary Outflow Tract: Clear. Sphenoid and Posterior Ethmoid Sinuses: Clear. Sphenoethmoidal Recesses: Sphenoid sinusotomy defect is clear. Nasal Cavity: No nasal masses. The nasal septum is intact with probable prior septoplasty. Facial Soft Tissues: The retroantral and premaxillary fat are preserved. Skull Base and Orbits: Cribriform plate: Dehiscent. Lamina papyracea: Intact. Olfactory recesses: Symmetric, measuring greater than 7 mm, consistent with a Keros III classification. Sphenoid sinus anatomy: Normally pneumatized, with the sphenoid sinus abutting the anterior wall of the sella (presellar). Optic nerve canals are adequately covered. Carotid canals are adequately covered. Anterior ethmoid artery: Anterior ethmoid notches are protected, abutting the fovea ethmoidalis. Onodi cell: Absent. Sven cell: Absent. [facility] Josr Yoon M D - 10/21/2024 Patient Name: [facility] 1965 [id number] Exam Date/Time: 10/16/2024 08:01 Procedure: CT MAXILLOFACIAL WO IV CONTRAST Ordering Provider: WHITE MARK Reason For Exam: j33.9 EXAMINATION: CT MAXILLOFACIAL WO IV CONTRAST CLINICAL HISTORY: j33.9 nasal polyp COMPARISON: None TECHNIQUE: Thin isotropic axial images were obtained through the paranasal sinuses without intravenous contrast. Dose reduction was employed with automated exposure control. FINDINGS: Surgical changes: Right total ethmoidectomies and left posterior ethmoidectomies. Left sphenoid sinusotomy. RIGHT: Frontal, Anterior Ethmoid and Maxillary Sinuses: Mild polypoid mucosal thickening in the right maxillary sinus. The right frontal sinus and anterior ethmoidectomy cavity are clear. Maxillary Outflow Tract: Clear. Sphenoid and Posterior Ethmoid Sinuses: Clear. Sphenoethmoidal Recesses: Clear. LEFT: Frontal, Anterior Ethmoid and Maxillary Sinuses: Minimal mucosal thickening in the left maxillary sinus. The left frontal sinus and anterior ethmoid air cells are clear. Maxillary Outflow Tract: Clear. Sphenoid and Posterior Ethmoid Sinuses: Clear. Sphenoethmoidal Recesses: Sphenoid sinusotomy defect is clear. Nasal Cavity: No nasal masses. The nasal septum is intact with probable prior septoplasty. Facial Soft Tissues: The retroantral and premaxillary fat are preserved. Skull Base and Orbits: Cribriform plate: Dehiscent. Lamina papyracea: Intact. Olfactory recesses: Symmetric, measuring greater than 7 mm, consistent with a Keros III classification. Sphenoid sinus anatomy: Normally pneumatized, with the sphenoid sinus abutting the anterior wall of the sella (presellar). Optic nerve canals are adequately covered. Carotid canals are adequately covered. Anterior ethmoid artery: Anterior ethmoid notches are protected, abutting the fovea ethmoidalis. Onodi cell: Absent. Sven cell: Absent. IMPRESSION: 1. Previous ethmoidectomies bilaterally and left sphenoid sinusotomy. No evidence of sinus drainage pathway obstruction. 2. Mild polypoid mucosal thickening in the right maxillary sinus and minimal mucosal thickening in the left maxillary sinus. Other paranasal sinuses are clear. 3. No nasal polyp is identified; please correlate with speculum exam. 4. The cribriform plate appears thin or dehiscent. Report Dictated on Electronically Signed By: Josr Yoon MD Electronically Signed Date/Time: 10/21/2024 8:43 AM EST [facility] Maxillofacial region WO c ontrastOrdered By: Josr Yoon on 10-21-2024 [facility] [employer] Work Phone: [facility]24 Radiology Study observation (narrative) [facility] [employer] 37on 10-08-2024 37 YOUR APPOINTMENT TODejan CHENG WAS WITH THE [facility] LUNG NODULE CLINIC, COPD CLINIC, PULMONARY AND SLEEP MEDICINE OFFICE. PLEASE CALL OUR OFFICE AT [phone] IF YOU HAVE NOT RECEIVED YOUR TEST RESULTS 7 DAYS AFTER TESTING IS COMPLETED. PLEASE REMEMBER TO REQUEST REFILLS AT YOUR OFFICE VISITS. PHONE/FAX REQUESTS REQUIRE 48-72 HOURS FOR RESPONSE. A FRIENDLY REMINDER COPAYS ARE DUE AT TIME OF SERVICE. THANK YOU. Our Patients Are Important! We want to improve and you can help. After your visit we want you to feel: Listened to, Respected and have your health care explained. You may receive a survey asking you about your visit. Please complete the survey. We will use your feedback to make improvements. COVID-19 VACCINATION INFORMATION: PH. [phone] [email or web address] /VACCINE [facility] Central Scheduling [phone] [facility] Sleep Scheduling [phone] [facility] Office Visiton 10-08-2024 Follow-up visit [id number] Brissa Jeffery 1965 F Date Provider Department Center 10/08/2024 [id number] SOL[facility] None Family History Problem Relation Age of Onset Diabetes Mother Emphysema Mother Heart failure Mother Emphysema Father Hypertension Father Breast cancer Mother's Sister 55 Breast cancer Mother's Sister 55 Lung cancer Mother's Brother 55 Breast cancer Paternal Grandmother 55 Stomach cancer Paternal Grandmother Family Status - Relation Status Age at Mother Father Daughter Alive Mother's Sister Mother's Sister Mother's Brother Maternal Grandmother Maternal Grandfather Paternal Grandmother Paternal Grandfather Level of Service:79313 [place] OFFICE/OUTPATIENT ESTABLISHED MOD MDM 30 MIN Reason for Visit and Comments: Follow-up [129265] [facility] Follow-up visit [id number] Brissa Jeffery 1965 F Date Provider Department Center 10/08/2024 [id number] [facility] Family History Problem Relation Age of Onset Diabetes Mother Emphysema Mother Heart failure Mother Emphysema Father Hypertension Father Breast cancer Mother's Sister 55 Breast cancer Mother's Sister 55 Lung cancer Mother's Brother 55 Breast cancer Paternal Grandmother 55 Stomach cancer Paternal Grandmother Family Status - Relation Status Age at Mother Father Daughter Alive Mother's Sister Mother's Sister Mother's Brother Maternal Grandmother Maternal Grandfather Paternal Grandmother Paternal Grandfather Level of Service:[id number] [place] OFFICE/OUTPATIENT ESTABLISHED LOW MDM 20 MIN Reason for Visit and Comments: Follow-up [293995] - [address] [facility] Progress Noteon 10-08-2024 Progress Note Answers submitted by the patient for this visit: Pulmonology Questionnaire (Submitted on 10/04/2024) Chief Complaint: Primary symptoms Chronicity: new When did you first notice your symptoms?: more than 1 month ago How often do your symptoms occur?: intermittently Since you first noticed this problem, how has it changed?: gradually improving Do you have ear congestion?: Yes Do you have fatigue?: Yes Do you have nasal congestion?: Yes Do you have sneezing?: Yes Risk factors for lung disease: smoking/tobacco exposure 10/08/2024 REFERRING PHYSICIAN: Sudhir Pedraza DO REASON FOR REFERRAL: Chief Complaint Patient presents with Follow-up Chief complaint: LINDSAY on BIPAP and noct O2 History of Present Illness: Here for follow up. Sleeping with the BIPAP and O2 every night, sleeping better, but still feels like she's floating during the day until the evening. Wondering if she has an inner problem, sees Dr White this afternoon. Chronic sinus congestion, uses a combination of Flonase and Afrin. Was taking Zyrtec as well. ROS: Review of Systems Constitutional: Negative. HENT: Positive for sneezing. Eyes: Negative. Respiratory: HPI Cardiovascular: Negative. Gastrointestinal: Negative. Endocrine: Negative. Musculoskeletal: Negative. Skin: Negative. Allergic/Immunologic: Negative. Neurological: Negative. Hematological: Negative. Psychiatric/Behavioral : Negative. 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 Allergic rhinitis BRCA1 negative BRCA2 negative Disease of thyroid gland Fibrocystic breast GERD (gastroesophageal reflux disease) 09/13 Hypertension Liver disease 09/13 Obesity Prediabetes Sleep apnea 03/2024 Sleep apnea, obstructive 2018 Past Surgical History Past Surgical History: Procedure Laterality Date APPENDECTOMY BREAST BIOPSY Right 02/17/2024 Adenocarcinoma BREAST LUMPECTOMY Right 02/17/2024 2nd re-excision on 03/29/2024 CHOLECYSTECTOMY COLONOSCOPY HERNIA REPAIR HYSTERECTOMY age 41 OOPHORECTOMY Right Social History: Social History Socioeconomic History Marital status: Tobacco Use Smoking status: Never Passive exposure: Never Smokeless tobacco: Never Vaping Use Vaping status: Never Used Substance and Sexual Activity Alcohol use: Never Drug use: Never Sexual activity: Never control/protection: Surgical Social Drivers of Health Financial Resource Strain: Low Risk (05/16/2024) Overall Financial Resource Strain (CARDIA) Difficulty of Paying Living Expenses: Not hard at all Food Insecurity: No Food Insecurity (05/16/2024) Hunger Vital Sign Worried About Running Out of Food in the Last Year: Never true Ran Out of Food in the Last Year: Never true Transportation Needs: No Transportation Needs (05/16/2024) PRAPARE - Transportation Lack of Transportation (Medical): No Lack of Transportation (Non-Medical): No Physical Activity: Insufficiently Active (05/16/2024) Exercise Vital Sign Days of Exercise per Week: 5 days Minutes of Exercise per Session: 20 min Stress: No Stress Concern Present (05/16/2024) [employer] [place] [employer] - Occupational Stress Questionnaire Feeling of Stress : Not at all Social Connections: Socially Integrated (05/16/2024) Social Connection and Isolation Panel [NHANES] Frequency of Communication with Friends and Family: More than three times a week Frequency of Social Gatherings with Friends and Family: More than three times a week Attends Orthodox Services: 1 to 4 times per year Active Member of Clubs or Organizations: Yes Attends Club or Organization Meetings: More than 4 times per year Marital Status: Intimate Partner Violence: Patient Declined (05/16/2024) Humiliation, Afraid, Rape, and Kick questionnaire Fear of Current or Ex-Partner: Patient declined Emotionally Abused: Patient declined Physically Abused: Patient declined Sexually Abused: Patient declined Housing Stability: Low Risk (05/16/2024) Housing Stability Vital Sign Unable to Pay for Housing in the Last Year: No Number of Times Moved in the Last Year: 0 Homeless in the Last Year: No Medications: Current Outpatient Medications Medication Sig Dispense Refill cholecalciferol (Vitamin D-3) 125 MCG (5000 UT) capsule Take 5,000 Units by mouth in the morning. Vitamin C and Zinc combo. hydroCHLOROthiazide (Microzide) 12.5 MG capsule Take 12.5 mg by mouth daily. NON FORMULARY daily. SUPER DIGESTIVE ENZYME omeprazole (PriLOSEC) [address] capsule Take 20 mg by mouth every morning (before breakfast). Do not crush or chew. oxymetazoline (Nasal Relief) 0.05 % nasal spray Administer 2 sprays into affected nostril(s) twice a day. Tirosint 112 MCG capsule Take 112 mcg by mouth every morning (before breakfast). Triamcinolone Acetonide (NASACORT AQ NA) Administer 2 sprays into (more content not included)... Normal [facility] Progress Note [facility] [place] [address] [facility] [id number] Visit Type: Follow Up Appointment PCP: Sudhir Pedraza DO Reason for Visit: Follow-up (3 month follow up) Assessment and Plan Assessment & Plan Shoulder blade pain Symptoms c/w muscular pain. No features suggestive of nerve impingement from the neck. Advised on conservative mgmt with dry needling, acupuncture, chiropractic or PT. She will speak with chiropractic about the plan. If too costly through him, then would consider PT referral for direct manipulation. Follow up in about 6 months (around 04/08/2025). There are no Patient Instructions on file for this visit. Subjective HPI She eliminated the metformin due to too many variables going on right now. 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 L eye floater - seen by Dr. Nina - retina is fine Referral to Dr. Sykes - specialist BP is looking good range. Trying to skip back and forth between the hydrochlorothiazide. She is on Bipap with 2L O2 at night. Thinking she needs to be assessed again to make sure this is proper for her. Review of Systems Pertinent ROS noted in the HPI and all other systems are negative. Current Outpatient Medications Medication Sig Dispense Refill cholecalciferol (Vitamin D-3) 125 MCG (5000 UT) capsule Take 5,000 Units by mouth in the morning. Vitamin C and Zinc combo. hydroCHLOROthiazide (Microzide) 12.5 MG capsule Take 12.5 mg by mouth daily. NON FORMULARY daily. SUPER DIGESTIVE ENZYME omeprazole (PriLOSEC) [address] capsule Take 20 mg by mouth every morning (before breakfast). Do not crush or chew. oxymetazoline (Nasal Relief) 0.05 % nasal spray Administer 2 sprays into affected nostril(s) twice a day. Tirosint 112 MCG capsule Take 112 mcg by mouth every morning (before breakfast). Triamcinolone Acetonide (NASACORT AQ NA) Administer 2 sprays into each nostril Nightly. ursodiol (Actigall) 300 MG capsule Take 300 mg by mouth 2 times daily. No current facility-administered medications for this visit. 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 Physical Exam Gen: well appearing, no distress Msk: R shoulder - trapezius pain along the scapular margin noted and overlying the scapula. Normal ROM in the shoulder. Negative Spurlings compression test. Medications Discontinued During This Encounter Medication Reason metFORMIN XR (Glucophage-XR) 500 MG 24 hr tablet Med list cleanup Sudhir Pedraza, 10/08/2024 4:[address] [facility] 36on 09-17-2024 36 LVM with pt to call this office to schedule an appt to go over test results per SAnju Bashir, She should be scheduled an appointment to review test results- can be virtual if needed- this should be with a [facility] physician. [facility] 36on 09-14-2024 36 Auth was already received when they called. Test is already performed as well. [facility] 36on 09-07-2024 36 Name of caller: Kala Contact phone number: [phone] Relationship to Patient: Vaughn Provider: Dr Pedraza Practice: [facility] Chief Complaint/Reason for Call: TREVOR [id number] 09/06/24-10/05/[address] of the chest with contrast approved CT of the abdomin with [id number] Best time of day caller can be reached: any Patient advised that office/PCP has 24-48 business hours to return their call: No Normal [facility] CT Abdomen and Pelvis WO and W contrast Lucas 09-07-2024 1. 9 mm left upper lobe pulmonary nodule. See follow-up guidelines below. 2. The liver demonstrates generalized diminished attenuation as compared to the spleen, compatible with hepatic steatosis. 3. Few scattered left hemicolon diverticula without evidence of acute diverticulitis. 4. 12 x 6 mm left thyroid hypodensity/nodule. See follow-up guidelines below. 2017 - UPDATED [employer] GUIDELINES FOR MANAGEMENT OF SMALL PULMONARY NODULES DETECTED ON CT Note: Recommendations do not apply for lung cancer screening, patients with immunosuppression or with known cancer. Dimensions are average of long and short axis rounded to the millimeter SOLITARY NODULE: LOW RISK PATIENT <6mm - No follow up 6-8mm - 6-12 months, then consider 18-24 months >8mm - PET/CT, Bx or followup in 3 months SOLITARY NODULE: HIGH RISK PATIENT <6mm - Optional 6-12 months (suspicious morphology or upper lobe) 6-8mm - 6-12 months, then 18-24 months >8mm - PET/CT, Bx or followup in 3 months MULTIPLE NODULES: LOW RISK PATIENT (Use most suspicious nodule to manage guidelines) All <6mm - No follow up Any >6mm - 3-6 months, then consider 18-24 months MULTIPLE NODULES: HIGH RISK PATIENT (Use most suspicious nodule to manage guidelines) All <6mm - No follow up Any >6mm - 3-6 months, then 18-24 months SUBSOLID NODULE: SINGLE GROUND GLASS OPACITY <6mm - No follow up 6mm or greater - 6-12 months, then every 2 years until 5 years SUBSOLID NODULE: PART SOLID <6mm - No follow up 6mm or greater - 3-6 months, then if solid component <6mm and unchanged every year until 5 years MULTIPLE SUBSOLID NODULES: All <6mm - 3-6 months, then if stable 24 and 48 months 6mm or greater - 3-6 months, subsequent management based upon most suspicious nodule No further evaluation is required for incidental thyroid nodules < 1.5 cm in patients 35 years of age or older. Reference: Don Johnson et al Managing incidental thyroid nodules detected on imaging: White paper of the ACR incidental thyroid findings committee J Am Jeremiah Radiol 2015;12:143-150. Report Dictated on Electronically Signed By: Kofi Leiva MD Electronically Signed Date/Time: 09/07/2024 4:27 PM EST [facility] Patient Name: BRISSA JEFFERY : 1965 Exam Date/Time: 09/07/2024 14:17 Procedure: CT CHEST ABDOMEN W CONTRAST Ordering Provider: PEDRAZA BRITTANY Reason For Exam: chest pain, LUCERO, dizziness, unintentional weight loss, abdominal fullness; high risk breast cancer CT CHEST ABDOMEN WITH CONTRAST: CLINICAL INDICATION: Weight loss. TECHNIQUE: 1 mm axial images of the chest and 3mm axial images of the abdomen obtained with 75 mL of Isoview intravenous contrast. Coronal and sagittal reconstructions were constructed. Dose reduction was employed with automated exposure control. COMPARISON: None. FINDINGS: Lungs: 9 mm left upper lobe nodule (image 132 series 7). No additional pulmonary nodule identified. No acute opacification or consolidation. Pleural fluid: None. Thyroid: 12 x 6 mm left thyroid hypodensity/nodule. Otherwise unremarkable. Heart/Great vessels: Unremarkable. No pericardial effusion or coronary artery calcifications. Mediastinum/Dimple: No lymphadenopathy or mass identified. Soft tissues chest wall: Unremarkable. Osseous structures: Unremarkable osseous structures. ABDOMEN: Stomach: Unremarkable. Liver: Normal size and contours. The liver demonstrates generalized diminished attenuation as compared to the spleen, compatible with hepatic steatosis. No focal lesion. Biliary tree: Post cholecystectomy. No biliary dilatation Spleen: Normal. Adrenals: Normal. Pancreas: Normal. Kidneys: Symmetric contrast excretion without evidence of hydronephrosis. Right renal cortical cyst. Otherwise no focal renal lesion is identified. Free fluid: None. Retroperitoneal/mesent ja lymphadenopathy: None. Aorta: The aorta is normal in caliber. Bowel: Few scattered left hemicolon diverticula without evidence of acute diverticulitis. No inflammatory changes. No dilatation is noted. Abdominal wall/soft tissues: No ventral hernia is evident. Osseous structures: Multilevel degenerative spondylosis, including dextroscoliosis. [facility] Kofi Leiva MD - 09/07/2024 Patient Name: BRISSA JEFFERY : 1965 Exam Date/Time: 09/07/2024 14:17 Procedure: CT CHEST ABDOMEN W CONTRAST Ordering Provider: KEILA, , SUDHIR Reason For Exam: chest pain, LUCERO, dizziness, unintentional weight loss, abdominal fullness; high risk breast cancer CT CHEST ABDOMEN WITH CONTRAST: CLINICAL INDICATION: Weight loss. TECHNIQUE: 1 mm axial images of the chest and 3mm axial images of the abdomen obtained with 75 mL of Isoview intravenous contrast. Coronal and sagittal reconstructions were constructed. Dose reduction was employed with automated exposure control. COMPARISON: None. FINDINGS: Lungs: 9 mm left upper lobe nodule (image 132 series 7). No additional pulmonary nodule identified. No acute opacification or consolidation. Pleural fluid: None. Thyroid: 12 x 6 mm left thyroid hypodensity/nodule. Otherwise unremarkable. Heart/Great vessels: Unremarkable. No pericardial effusion or coronary artery calcifications. Mediastinum/Dimple: No lymphadenopathy or mass identified. Soft tissues chest wall: Unremarkable. Osseous structures: Unremarkable osseous structures. ABDOMEN: Stomach: Unremarkable. Liver: Normal size and contours. The liver demonstrates generalized diminished attenuation as compared to the spleen, compatible with hepatic steatosis. No focal lesion. Biliary tree: Post cholecystectomy. No biliary dilatation Spleen: Normal. Adrenals: Normal. Pancreas: Normal. Kidneys: Symmetric contrast excretion without evidence of hydronephrosis. Right renal cortical cyst. Otherwise no focal renal lesion is identified. Free fluid: None. Retroperitoneal/mesent ja lymphadenopathy: None. Aorta: The aorta is normal in caliber. Bowel: Few scattered left hemicolon diverticula without evidence of acute diverticulitis. No inflammatory changes. No dilatation is noted. Abdominal wall/soft tissues: No ventral hernia is evident. Osseous structures: Multilevel degenerative spondylosis, including dextroscoliosis. IMPRESSION: 1. 9 mm left upper lobe pulmonary nodule. See follow-up guidelines below. 2. The liver demonstrates generalized diminished attenuation as compared to the spleen, compatible with hepatic steatosis. 3. Few scattered left hemicolon diverticula without evidence of acute diverticulitis. 4. 12 x 6 mm left thyroid hypodensity/nodule. See follow-up guidelines below. 2017 - UPDATED [employer] GUIDELINES FOR MANAGEMENT OF SMALL PULMONARY NODULES DETECTED ON CT Note: Recommendations do not apply for lung cancer screening, patients with immunosuppression or with known cancer. Dimensions are average of long and short axis rounded to the millimeter SOLITARY NODULE: LOW RISK PATIENT <6mm - No follow up 6-8mm - 6-12 months, then consider 18-24 months >8mm - PET/CT, Bx or followup in 3 months SOLITARY NODULE: HIGH RISK PATIENT <6mm - Optional 6-12 months (suspicious morphology or upper lobe) 6-8mm - 6-12 months, then 18-24 months >8mm - PET/CT, Bx or followup in 3 months MULTIPLE NODULES: LOW RISK PATIENT (Use most suspicious nodule to manage guidelines) All <6mm - No follow up Any >6mm - 3-6 months, then consider 18-24 months MULTIPLE NODULES: HIGH RISK PATIENT (Use most suspicious nodule to manage guidelines) All <6mm - No follow up Any >6mm - 3-6 months, then 18-24 months SUBSOLID NODULE: SINGLE GROUND GLASS OPACITY <6mm - No follow up 6mm or greater - 6-12 months, then every 2 years until 5 years SUBSOLID NODULE: PART SOLID <6mm - No follow up 6mm or greater - 3-6 months, then if solid component <6mm and unchanged every year until 5 years MULTIPLE SUBSOLID NODULES: All <6mm - 3-6 months, then if stable 24 and 48 months 6mm or greater - 3-6 months, subsequent management based upon most suspicious nodule No further evaluation is required for incidental thyroid nodules < 1.5 cm in patients 35 years of age or older. Reference: Don Ibrahim. et al Managing incidental thyroid nodules detected on imaging: White paper of the ACR incidental thyroid findings committee J Am Jeremiah Radiol 2015;12:143-150. Report Dictated on Electronically Signed By: Kofi Leiva MD Electronically Signed Date/Time: 09/07/2024 4:27 PM EST [facility] [employer] Radiology Study observation (narrative) [facility] and W contrast IVOrdered By: Kofi Leiva on 09-07-2024 [employer] Work Phone: CT CHEST ABDOMEN W CONTRASTo n 09-07-2024 CT CHEST ABDOMEN W CONTRAST Patient Name: [facility]ISSA JEFFERY [facility] 1965 [id number] Exam Date/Time: 09/07/2024 14:17 Procedure: CT CHEST ABDOMEN W CONTRAST Ordering Provider: PEDRAZA BRITTANY Reason For Exam: chest pain, LUCERO, dizziness, unintentional weight loss, abdominal fullness; high risk breast cancer CT CHEST ABDOMEN WITH CONTRAST: CLINICAL INDICATION: Weight loss. TECHNIQUE: 1 mm axial images of the chest and 3mm axial images of the abdomen obtained with 75 mL of Isoview intravenous contrast. Coronal and sagittal reconstructions were constructed. Dose reduction was employed with automated exposure control. COMPARISON: None. FINDINGS: Lungs: 9 mm left upper lobe nodule (image 132 series 7). No additional pulmonary nodule identified. No acute opacification or consolidation. Pleural fluid: None. Thyroid: 12 x 6 mm left thyroid hypodensity/nodule. Otherwise unremarkable. Heart/Great vessels: Unremarkable. No pericardial effusion or coronary artery calcifications. Mediastinum/Dimple: No lymphadenopathy or mass identified. Soft tissues chest wall: Unremarkable. Osseous structures: Unremarkable osseous structures. ABDOMEN: Stomach: Unremarkable. Liver: Normal size and contours. The liver demonstrates generalized diminished attenuation as compared to the spleen, compatible with hepatic steatosis. No focal lesion. Biliary tree: Post cholecystectomy. No biliary dilatation Spleen: Normal. Adrenals: Normal. Pancreas: Normal. Kidneys: Symmetric contrast excretion without evidence of hydronephrosis. Right renal cortical cyst. Otherwise no focal renal lesion is identified. Free fluid: None. Retroperitoneal/mesent ja lymphadenopathy: None. Aorta: The aorta is normal in caliber. Bowel: Few scattered left hemicolon diverticula without evidence of acute diverticulitis. No inflammatory changes. No dilatation is noted. Abdominal wall/soft tissues: No ventral hernia is evident. Osseous structures: Multilevel degenerative spondylosis, including dextroscoliosis. IMPRESSION: 1. 9 mm left upper lobe pulmonary nodule. See follow-up guidelines below. 2. The liver demonstrates generalized diminished attenuation as compared to the spleen, compatible with hepatic steatosis. 3. Few scattered left hemicolon diverticula without evidence of acute diverticulitis. 4. 12 x 6 mm left thyroid hypodensity/nodule. See follow-up guidelines below. 2017 - UPDATED [employer] GUIDELINES FOR MANAGEMENT OF SMALL PULMONARY NODULES DETECTED ON CT Note: Recommendations do not apply for lung cancer screening, patients with immunosuppression or with known cancer. Dimensions are average of long and short axis rounded to the millimeter SOLITARY NODULE: LOW RISK PATIENT <6mm - No follow up 6-8mm - 6-12 months, then consider 18-24 months >8mm - PET/CT, Bx or followup in 3 months SOLITARY NODULE: HIGH RISK PATIENT <6mm - Optional 6-12 months (suspicious morphology or upper lobe) 6-8mm - 6-12 months, then 18-24 months >8mm - PET/CT, Bx or followup in 3 months MULTIPLE NODULES: LOW RISK PATIENT (Use most suspicious nodule to manage guidelines) All <6mm - No follow up Any >6mm - 3-6 months, then consider 18-24 months MULTIPLE NODULES: HIGH RISK PATIENT (Use most suspicious nodule to manage guidelines) All <6mm - No follow up Any >6mm - 3-6 months, then 18-24 months SUBSOLID NODULE: SINGLE GROUND GLASS OPACITY <6mm - No follow up 6mm or greater - 6-12 months, then every 2 years until 5 years SUBSOLID NODULE: PART SOLID <6mm - No follow up 6mm or greater - 3-6 months, then if solid component <6mm and unchanged every year until 5 years MULTIPLE SUBSOLID NODULES: All <6mm - 3-6 months, then if stable 24 and 48 months 6mm or greater - 3-6 months, subsequent management based upon most suspicious nodule No further evaluation is required for incidental thyroid nodules < 1.5 cm in patients 35 years of age or older. Reference: Don Ibrahim. et al Managing incidental thyroid nodules detected on imaging: White paper of the ACR incidental thyroid findings committee J Am Jeremiah Radiol 2015;12:143-150. Report Dictated on Electronically Signed By: Kofi Leiva MD Electronically Signed Date/Time: 09/07/2024 4:27 PM EST chest pain, LUCERO, dizziness, unintentional weight loss, abdominal fullness; high risk breast cancer Dizziness, CO2 retention, Unintentional weight loss, Abdominal bloating, dyspnea on exertion Hx of Adenocarcinoma/htn/ANA MARÍA D/Liver disease Normal [facility] Office Visiton 09-06-2024 Follow-up visit [id number] Brissa Jeffery 1965 F Date Provider Department Center 09/06/2024 [id number] PEDRAZA [facility] Family History Problem Relation Age of Onset Diabetes Mother Emphysema Mother Heart failure Mother Emphysema Father Hypertension Father Breast cancer Mother's Sister 55 Breast cancer Mother's Sister 55 Lung cancer Mother's Brother 55 Breast cancer Paternal Grandmother 55 Stomach cancer Paternal Grandmother Family Status - Relation Status Age at Mother Father Daughter Alive Mother's Sister Mother's Sister Mother's Brother Maternal Grandmother Maternal Grandfather Paternal Grandmother Paternal Grandfather Level of Service:[id number] [place] OFFICE/OUTPATIENT ESTABLISHED MOD MDM 30 MIN Reason for Visit and Comments: ER Follow-up [831] - ED follow up from 08/31/24 for dizziness related to sleep apnea. Pt reports she continues to have dizziness that gradually improves by the times she goes to bed, worse in the morning. Normal [facility] Progress Noteon 09-06-2024 Progress Note During rooming, patient was asked if they would like a flu shot. She declined. Normal [facility] Progress Note [facility] [place] [address] [facility] [address] Visit Type: ED FOLLOW UP PCP: Sudhir Pedraza DO Reason for Visit: ER Follow-up (ED follow up from 08/31/24 for dizziness related to sleep apnea. Pt reports she continues to have dizziness that gradually improves by the times she goes to bed, worse in the morning.) Assessment and Plan Brissa Noble was seen today for er follow-up. Diagnoses and all orders for this visit: Dizziness - CT chest abdomen with contrast; Future - Basic metabolic panel; Future - Basic metabolic panel Vaccination not carried out because of patient refusal - CT chest abdomen with contrast; Future - Basic metabolic panel; Future - Basic metabolic panel CO2 retention - CT chest abdomen with contrast; Future - Basic metabolic panel; Future - Basic metabolic panel Unintentional weight loss - CT chest abdomen with contrast; Future - Basic metabolic panel; Future - Basic metabolic panel Abdominal bloating - CT chest abdomen with contrast; Future - Basic metabolic panel; Future - Basic metabolic panel LUCERO (dyspnea on exertion) - CT chest abdomen with contrast; Future - Basic metabolic panel; Future - Basic metabolic panel Chest pain, unspecified type - CT chest abdomen with contrast; Future - Basic metabolic panel; Future - Basic metabolic panel Brissa Noble had a sudden change in her clinical status with SOA ,dizziness and chest pain starting earlier in the spring of this year. It was presumed to be related to other causes like LINDSAY and inaccurate seetings causing CO2 retention. She was thus switched to Bipap and recently started an O2 bleed in. However, she continues to feel poorly and no etiology has been identified. Given her history of thrombocytopenia, with a possible MDS picture I have suggested she be evaluate for a PE. She has low O2, dizziness, and CO2 retention. She has also endorsed this sense of abdominal fullness and bloating which has not yet been identified. As such, I have suggested including a CT abdomen in our work up with the chest imaging. Follow up if symptoms worsen or fail to improve. There are no Patient Instructions on file for this visit. Subjective HPI Had been a few days not feeling well. And then got in the car to drive. And felt like she would pass out. Per ED visit on 08/31 - noted to have high CO2. They are trying to get her Bipap with O2 feed in. She has still been feeling poorly with dizziness. Somewhat improves during bedtime. And then worse again by the morning. It's a feeling like she might pass out. If she is staring at something she is finding she is breath holding. She started on O2 bleed in on Tuesday at 1.5L and then increased to 2L. She continues to feel poorly. No change Recently she started monitoring O2 and HR on her pulse ox through the night and see's an abrupt drop in O2 to 85% early in the night. And HR tends to run low range 50-60's range throughout the night. Review of Systems Pertinent ROS noted in the HPI and all other systems are negative. Current Outpatient Medications Medication Sig Dispense Refill cholecalciferol (Vitamin D-3) 125 MCG (5000 UT) capsule Take 5,000 Units by mouth in the morning. Vitamin C and Zinc combo. hydroCHLOROthiazide (Microzide) 12.5 MG capsule Take 12.5 mg by mouth daily. metFORMIN XR (Glucophage-XR) 500 MG 24 hr tablet Take 1 tablet (500 mg) by mouth daily (with breakfast). Do not crush, chew, or split. 30 tablet 11 NON FORMULARY daily. SUPER DIGESTIVE ENZYME oxymetazoline (Nasal Relief) 0.05 % nasal spray Administer 2 sprays into affected nostril(s) twice a day. Tirosint 112 MCG capsule Take 112 mcg by mouth every morning (before breakfast). Triamcinolone Acetonide (NASACORT AQ NA) Administer 2 sprays into each nostril Nightly. ursodiol (Actigall) 300 MG capsule Take 300 mg by mouth 2 times daily. No current facility-administered medications for this visit. 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 Physical Exam Gen: well appearing, no distress CV: RRR, no murmurs Lungs: CTAB, nonlabored, no wheezing Abd: soft, nt, nd, no masses or organomegaly Medications Discontinued During This Encounter Medication Reason Omeprazole 20 MG tablet delayed-release Med list cleanup Sudhir Pedraza DO 09/06/2024 11:04 AM On this date, 09/06/2024 I have spent 34 minutes reviewing previ (more content not included)... [facility] 09-04-2024 36 LVM for patient to call our office to reschedule cancelled follow up appointment due to provider being out of office. Will send Selerity message [facility] 09-03-2024 36 Name of caller: Brissa ta Contact phone number: [phone] Relationship to Patient: patient Provider: Dr Maldonado Practice: Pulmonology Chief Complaint/Reason for Call: Patient wanting to know if she can be referred to Sleep Medicine. Patient stated that she feels that her symptoms are more sleep apnea related. Please call patient back to advise. Best time of day caller can be reached: Any Patient advised that office/PCP has 24-48 business hours to return their call: N/A [facility] 36 Name of caller: Brissa ta Contact phone number: [phone] Relationship to Patient: patient Provider: Dr Pedraza Practice: [facility] Chief Complaint/Reason for Call: Pt called to schedule an ED follow up with Dr Pedraza. Pt was in ED for dizziness related to sleep apnea. Dr Pedraza did not have any availability and pt only wanted to schedule with Dr Pedraza. Pt stated she is seeing Dr Maldonado for a follow up and just wanted to make Dr Pedraza aware. Please advise. Best time of day caller can be reached: any Patient advised that office/PCP has 24-48 business hours to return their call: yes Normal [facility] ECG 12-LEADon 09-01-2024 ECG 12-LEAD IMPRESSION: Sinus rhythm Low voltage, precordial leads Electronically Signed On 09-01-2024 00:54:24 EST by Jessica Chester Normal [facility] BASIC METABOLIC PANELon 11-0 Anion gap [Moles/Vol] 3 mmol/L Normal 3-13 [facility] Comment on above: Performed By: #### L AB15, [id number], [id number], [id number] ####Associate Professor Of Philosophy: MARIAA BOLTON ([id number])[facility] ([facility] Calcium [Mass/Vol] 9.0 mg/dL Normal 8.4-10.4 [facility] Comment on above: Performed By: #### L AB15, [id number], [id number], [id number] ####Associate Professor Of Philosophy: MARIAA BOLTON ([id number])[facility] ([facility])[address] [place] [address] [place] Chloride [Moles/Vol] 104 mmol/L Normal 98-107 [facility] Comment on above: Performed By: #### L AB15, [id number], [id number], [id number] ####Associate Professor Of Philosophy: MARIAA BOLTON ([id number])[facility] ([facility])[address] [place] [address] [place] CO2 [Moles/Vol] 33 mmol/L High 22-30 [facility] Comment on above: Performed By: #### L AB15, [id number], [id number], [id number] ####Associate Professor Of Philosophy: MARIAA BOLTON ([id number])[facility] ([facility])[address] Creatinine [Mass/Vol] 0.80 mg/dL Normal 0.52-1.04 [facility] Comment on above: Performed By: #### L AB15, [id number], [id number], [id number] ####Associate Professor Of Philosophy: MARIAA BOLTON ([id number])[facility] ([facility])[address] GLOMERULAR FILTRATION RATE ML/MIN/1.73 SQ M.PREDICTED 86.1 mL/min/1.73m*2 Normal >60.0 [facility] Comment on above: Result Comment: Calc ulation based on the Chronic Kidney Disease Epidemiology Collaboration (CKD-EPI) equation refit without adjustment for race Performed By: #### L AB15, [id number], [id number], [id number] ####Associate Professor Of Philosophy: MARIAA BOLTON ([id number])[facility] ([facility])[address] Glucose [Mass/Vol] 106 mg/dL High 70-100 [facility] Comment on above: Performed By: #### L AB15, [id number], [id number], [id number] ####Associate Professor Of Philosophy: MARIAA BOLTON ([id number])[facility] ([facility])[address] Potassium [Moles/Vol] 4.1 mmol/L Normal 3.5-5.1 [facility] Comment on above: Performed By: #### L AB15, [id number], [id number], [id number] ####Associate Professor Of Philosophy: MARIAA BOLTON ([id number])[facility] ([facility])[address] [place] [address] [place] Sodium [Moles/Vol] 140 mmol/L Normal 135-145 [facility] Comment on above: Performed By: #### L AB15, [id number], [id number], [id number] ####Associate Professor Of Philosophy: MARIAA BOLTON ([id number])[facility] ([facility])[address] Urea nitrogen [Mass/Vol] 18 mg/dL High 7-17 [facility] Comment on above: Performed By: #### L AB15, AHA114, [id number], [id number] ####Associate Professor Of Philosophy: MARIAA BOLTON ([id number])[facility] ([facility])[address] BLOOD GAS, VENOUSon 08-31-20 24 Base excess Calc (BldV) [Moles/Vol] 3.6 mmol/L High -3.0-3.0 [facility] Comment on above: Performed By: #### L AB79 #### Associate Professor Of Philosophy: MARIAA BOLTON ([id number]) [facility] ([facility]) [address] CO2 [Moles/Vol] 30.4 mmol/L High 23.0-30.0 [facility] Comment on above: Performed By: #### L AB79 #### Associate Professor Of Philosophy: MARIAA BOLTON ([id number]) [facility] ([facility]) [address] [place] [address] [place] HCO3 (Bld) [Moles/Vol] 28.9 mmol/L Normal 21.0-30.0 [facility] Comment on above: Performed By: #### L AB79 #### Associate Professor Of Philosophy: MARIAA BOLTON ([id number]) [facility] ([facility]) [address] [place] [address] [place] Hemoglobin (Bld) [Mass/Vol] 13.3 g/dL Normal Screen only [facility] Comment on above: Performed By: #### L AB79 #### Associate Professor Of Philosophy: MARIAA BOLTON ([id number]) [facility] ([facility]) [address] OXYGEN (MM HG) IN VENOUS BLOOD 46.3 mm Hg Normal [facility] Comment on above: Performed By: #### L AB79 #### Associate Professor Of Philosophy: MARIAA BOLTON ([id number]) [facility] ([facility]) [address] OXYGEN SATURATION (%) IN VENOUS BLOOD 81.4 % Normal [facility] Comment on above: Performed By: #### L AB79 #### Associate Professor Of Philosophy: MARIAA BOLTON ([id number]) [facility] ([facility]) [address] PCO2, CONNOR 46.5 mm Hg Normal 35.0-53.0 [facility] Comment on above: Performed By: #### L AB79 #### Associate Professor Of Philosophy: MARIAA BOLTON ([id number]) [facility] ([facility]) [address] PH VENOUS 7.412 Normal 7.320-7.420 [facility] Comment on above: Performed By: #### L AB79 #### Associate Professor Of Philosophy: MARIAA BOLTON ([id number]) [facility] ([facility]) [address] SOURCE OF OXYGEN Room Air Normal [facility] Comment on above: Result Comment: MILTON Saul COMMENTS: Assessment of oxygenation is best done with an arterial blood gas determination. Reference ranges for pO2, bicarbonate, and base excess are for mixed venous blood. Specimens drawn from a peripheral vein will often have higher values. Performed By: #### L AB79 #### Associate Professor Of Philosophy: MARIAA BOLTON ([id number]) [facility] ([facility]) [address] Basic metabolic 1998 panelon 08-31-2024 Anion gap [Moles/Vol] 3 mmol/L 3 - 13 mmol/L [facility] Calcium [Mass/Vol] 9 mg/dL 8.4 - 10. 4 mg/dL [facility] Chloride [Moles/Vol] 104 mmol/L 98 - 10 7 mmol/L [facility] CO2 [Moles/Vol] 33 mmol/L High 22 - 30 mmol/L [facility] Creatinine [Mass/Vol] 0.8 mg/dL 0.52 - 1.04 mg/dL [facility] GFR/1.73 sq M.predicted (S/P/Bld) [Vol rate/Area] 86.1 mL/min - PINF [facility] Comment on above: Calculation based on the Chronic Kidney Disease Epidemiology Collaboration (CKD-EPI) equation refit without adjustment for race Glucose [Mass/Vol] 106 mg/dL High 70 - 100 mg/dL [facility] Interpretation and review of laboratory results Abnormal [facility] Potassium [Moles/Vol] 4.1 mmol/L 3.5 - 5.1 mmol/L [facility] Sodium [Moles/Vol] 140 mmol/L 135 - 145 mmol/L [facility] Urea nitrogen [Mass/Vol] 18 mg/dL High 7 - 17 mg/dL [facility] CBC W Auto Differential pane l (Bld)on 08-31-2024 Basophils (Bld) [#/Vol] 0 10*3/uL 0.0 - 0.2 10*3/uL [facility] Basophils/100 WBC (Bld) 0.2 % 0.0 - 2.0 % [facility] Eosinophils (Bld) [#/Vol] 0.1 10*3/uL 0.0 - 0.5 10*3/uL [facility] Eosinophils/100 WBC (Bld) 1.7 % 0.0 - 6.0 % [facility] Erythrocyte distribution width (RBC) [Ratio] 13.9 % 11.5 - 15.0 % [facility] Hematocrit (Bld) [Volume fraction] 38.3 % 35.0 - 47.0 % [facility] Hemoglobin (Bld) [Mass/Vol] 12.5 g/dL 11.7 - 16.0 g/dL [facility] Immature granulocytes (Bld) [#/Vol] 0 10*3/uL NINF - 0.1 10*3/uL [facility] Immature granulocytes/100 WBC (Bld) 0.6 % 0.0 - 2.0 % [facility] Interpretation and review of laboratory results Abnormal [facility] IPF 3 [facility] Lymphocytes (Bld) [#/Vol] 1.1 10*3/uL 1.0 - 4.3 10*3/uL [facility] Lymphocytes/100 WBC (Bld) 16.2 % 15.0 - 45.0 % [facility] MCH (RBC) [Entitic mass] 28.4 pg 26.0 - 34.0 pg [facility] MCHC (RBC) [Mass/Vol] 32.6 % 30.5 - 36.0 % [facility] MCV (RBC) [Entitic vol] 87 fL 77.0 - 99.0 fL [facility] Monocytes (Bld) [#/Vol] 0.4 10*3/uL 0.0 - 0.9 10*3/uL [facility] Monocytes/100 WBC (Bld) 5.6 % 5.0 - 13.0 % [facility] Neutrophils (Bld) [#/Vol] 4.9 10*3/uL 1.8 - 7.5 10*3/uL [facility] Neutrophils/100 WBC (Bld) 75.7 % 38.0 - 82.0 % [facility] Nucleated RBC/100 WBC (Bld) [Ratio] 0 % [facility] Platelet mean volume (Bld) [Entitic vol] 10.3 fL 9.0 - 12.7 fL [facility] Platelets (Bld) [#/Vol] 100 10*3/uL Low 140 - 440 10*3/uL [facility] RBC (Bld) [#/Vol] 4.4 10*6/uL 3.80 - 5.2 0 10*6/uL [facility] WBC (Bld) [#/Vol] 6.5 10*3/uL 3.6 - 10.7 10*3/uL [facility] CBC WITH AUTO DIFFERENTIALon 08-31-2024 Basophils (Bld) [#/Vol] 0.0 10*3/uL Normal 0.0-0.2 [facility] Comment on above: Performed By: #### L [id number] ####Associate Professor Of Philosophy: MARIAA BOLTON ([id number])[facility] ([facility])[address] Basophils/100 WBC (Bld) 0.2 % Normal 0.0-2.0 [facility] Comment on above: Performed By: #### L [id number] ####Associate Professor Of Philosophy: MARIAA BOLTON ([id number])[facility] ([facility])[address] Eosinophils (Bld) [#/Vol] 0.1 10*3/uL Normal 0.0-0.5 [facility] Comment on above: Performed By: #### L [id number] ####Associate Professor Of Philosophy: MARIAA BOLTON ([id number])[facility] [place] [address] Eosinophils/100 WBC (Bld) 1.7 % Normal 0.0-6.0 [facility] Comment on above: Performed By: #### L [id number] ####Associate Professor Of Philosophy: MARIAA OBLTON ([id number])[facility] ([facility] Erythrocyte distribution width (RBC) [Ratio] 13.9 % Normal 11.5-15.0 [facility] Comment on above: Performed By: #### L [id number] ####Associate Professor Of Philosophy: MARIAA BRANTLEYCAL ([id number])[facility] ([facility])[address] [place] [address] Hematocrit (Bld) [Volume fraction] 38.3 % Normal 35.0-47.0 [facility] Comment on above: Performed By: #### L [id number] ####Associate Professor Of Philosophy: MARIAA BOLTON ([id number])[facility] ([facility])[address] [place] [address] Hemoglobin (Bld) [Mass/Vol] 12.5 g/dL Normal 11.7-16.0 [facility] Comment on above: Performed By: #### L [id number] ####Associate Professor Of Philosophy: MARIAA BOLTON ([id number])[facility] ([facility] [place] [address] IMMATURE GRANS % 0.6 % Normal 0.0-2.0 [facility] Comment on above: Performed By: #### L [id number] ####Associate Professor Of Philosophy: MARIAA BOLTON ([id number])[facility] ([facility])[address] [place] [address] IMMATURE GRANS ABSOLUTE 0.0 10*3/uL Normal <0.1 [facility] Comment on above: Performed By: #### L [id number] ####Associate Professor Of Philosophy: MARIAA MAURICEMauriceCAL ([id number])[facility] ([facility] [place] [address] IPF 3 Normal [facility] Comment on above: Performed By: #### L [id number] ####Associate Professor Of Philosophy: MARIAA MAURICEMauriceCAL ([id number])[facility] ([facility] [place] [address] Lymphocytes (Bld) [#/Vol] 1.1 10*3/uL Normal 1.0-4.3 [facility] Comment on above: Performed By: #### L [id number] ####Associate Professor Of Philosophy: MARIAAAURELIA BOLTON ([id number])[facility] ([facility])[address] [place] [address] Lymphocytes/100 WBC (Bld) 16.2 % Normal 15.0-45.0 [facility] Comment on above: Performed By: #### L [id number] ####Associate Professor Of Philosophy: MARIAA HOANG ([id number])[facility] ([facility])[address] [place] [address] MCH (RBC) [Entitic mass] 28.4 pg Normal 26.0-34.0 [facility] Comment on above: Performed By: #### L [id number] ####Associate Professor Of Philosophy: MARIAA MAURICEMauriceCAL ([id number])[facility] ([facility] [place] [address] MCHC 32.6 % Normal 30.5-36.0 [facility] Comment on above: Performed By: #### L [id number] ####Associate Professor Of Philosophy: MARIAA MAURICERUBIN ([id number])[facility] ([facility])[address] [place] [address] MCV (RBC) [Entitic vol] 87.0 fL Normal 77.0-99.0 [facility] Comment on above: Performed By: #### L [id number] ####Associate Professor Of Philosophy: MARIAA HOANG ([id number])[facility] [place] [facility] [place] [address] Monocytes (Bld) [#/Vol] 0.4 10*3/uL Normal 0.0-0.9 [facility] Comment on above: Performed By: #### L [id number] ####Associate Professor Of Philosophy: MARIAA MAURICERUBIN ([id number])[facility] [place] ([facility])[address] Monocytes/100 WBC (Bld) 5.6 % Normal 5.0-13.0 [facility] Comment on above: Performed By: #### L [id number] ####Associate Professor Of Philosophy: MARIAA HOANG ([id number])[facility] [place] [facility])[address] [place] [address] NEUTROPHILS ABSOLUTE 4.9 10*3/uL Normal 1.8-7.[address] [facility] Comment on above: Performed By: #### L [id number] ####Associate Professor Of Philosophy: MARIAA HOANG ([id number])[facility] [place] ([facility])[address] Neutrophils/100 WBC (Bld) 75.7 % Normal 38.0-82.0 [facility] Comment on above: Performed By: #### L [id number] ####Associate Professor Of Philosophy: MARIAA BRANTLEYCAL ([id number])[facility] [place] [facility])[address] NRBC 0.0 /100 WBCs Normal 0.0-2.0 [facility] Comment on above: Performed By: #### L [id number] ####Associate Professor Of Philosophy: MARIAA BRANTLEYCAL ([id number])[facility] [place] [facility])[address] Platelet mean volume (Bld) [Entitic vol] 10.3 fL Normal 9.0-12.7 [facility] Comment on above: Performed By: #### L [id number] ####Associate Professor Of Philosophy: MARIAA BOLTON ([id number])[facility] ([facility])[address] Platelets (Bld) [#/Vol] 100 10*3/uL Low 140-440 [facility] Comment on above: Performed By: #### L [id number] ####Associate Professor Of Philosophy: MARIAA BOLTON ([id number])[facility] [place] [facility])[address] RBC (Bld) [#/Vol] 4.40 10*6/uL Normal 3.80-5.20 [facility] Comment on above: Performed By: #### L [id number] ####Associate Professor Of Philosophy: MARIAA BOLTON ([id number])[facility] [place] ([facility])[address] WBC (Bld) [#/Vol] 6.5 10*3/uL Normal 3.6-10.7 [facility] Comment on above: Performed By: #### L [id number] ####Associate Professor Of Philosophy: MARIAA BOLTON ([id number])[facility] ([facility])[address] ED Provider Noteon ED Provider Note EMERGENCY DEPARTMENT ENCOUNTER Pt Name: Brissa Jeffery Birthdate 1965 Date of evaluation: 08/31/2024 ED Provider: Jeff Boykin DO CHIEF COMPLAINT Chief Complaint Patient presents with Dizziness Pt in with c/o feeling light headed and flushed in the morning when I wake up. States I have been using a CPAP machine for 5 years and I recently switched to an auto BiPAP and since then, every morning I have not felt right. States reasoning for switching to bipap was due to high CO2 HISTORY OF PRESENT ILLNESS (Location/Symptom, Timing/Onset, Context/Setting, Quality, Duration, Modifying Factors, Severity) Note limiting factors. I wore appropriate PPE for the entirety of this encounter. HPI Brissa Jeffery is a 58 y.o. who presents to the emergency department with chief complaint of dizziness. Patient states for the last few days, she has been feeling lightheaded and dizzy whenever she wakes up in the morning. She does have history of sleep apnea which is apparently relatively severe. Currently not being treated appropriately with CPAP so they recently switched her to BiPAP. Despite this, still having symptoms. Recently saw pulmonology and they were concerned for possible hypoxia exacerbating her symptoms. Recommended that she be on 2 L supplemental oxygen along with the BiPAP overnight. That has been apparently awaiting some kind of signout from the doctor and she does not have the supplemental oxygen supplies yet. This morning again she had the same dizziness which was severe and she could not tolerate her symptoms. Was apparently on her way to chiropractor appointment when she decided to come to the ER instead. No associated chest pain, palpitations, syncope, fever, chills, nausea, vomiting, leg swelling. No prior history of coronary artery disease. States she has previously had workup including calcium scoring which was normal. Nursing Notes were reviewed. 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 Allergic rhinitis BRCA1 negative BRCA2 negative Disease of thyroid gland Fibrocystic breast GERD (gastroesophageal reflux disease) 09/13 Hypertension Liver disease 09/13 Obesity Prediabetes Sleep apnea 03/2024 SURGICAL HISTORY Past Surgical History: Procedure Laterality Date APPENDECTOMY BREAST BIOPSY Right 02/17/2024 Adenocarcinoma BREAST LUMPECTOMY Right 02/17/2024 2nd re-excision on 03/29/2024 CHOLECYSTECTOMY COLONOSCOPY HERNIA REPAIR HYSTERECTOMY age 41 OOPHORECTOMY Right CURRENT MEDICATIONS Discharge Medication List as of 08/31/2024 2:13 PM CONTINUE these medications which have NOT CHANGED Details cholecalciferol (Vitamin D-3) 125 MCG (5000 UT) capsule Take 5,000 Units by mouth in the morning. Vitamin C and Zinc combo., Historical Med hydroCHLOROthiazide (Microzide) 12.5 MG capsule Take 12.5 mg by mouth daily., Starting Emilee 03/15/2024, Historical Med metFORMIN XR (Glucophage-XR) 500 MG 24 hr tablet Take 1 tablet (500 mg) by mouth daily (with breakfast). Do not crush, chew, or split., Starting Tue06/12/2024, Until Tue06/12/2025, Normal NON FORMULARY daily. SUPER DIGESTIVE ENZYME, Historical Med Omeprazole 20 MG tablet delayed-release Take 20 mg by mouth daily., Historical Med Tirosint 112 MCG capsule Take 112 mcg by mouth every morning (before breakfast)., Historical Med Triamcinolone Acetonide (NASACORT AQ NA) Administer 2 sprays into each nostril Nightly., Historical Med ursodiol (Actigall) 300 MG capsule Take 300 mg by mouth 2 times daily., Historical Med ALLERGIES Esomeprazole, Sulfamethoxazole-trime thoprim, and Seasonal FAMILY HISTORY Family History Problem Relation Name Age of Onset Breast cancer Mother's Sister Ximena 55 Breast cancer Mother's Sister Brandy 55 Lung cancer Mother's Brother 55 Breast cancer Paternal Grandmother Alia 55 Stomach cancer Paternal Grandmother Alia SOCIAL HISTORY Social History Socioeconomic History Marital status: Tobacco Use Smoking status: Never Passive exposure: Never Smokeless tobacco: Never Vaping Use Vaping status: Never Used Substance and Sexual Activity Alcohol use: Never Drug use: Never Social Drivers of Health Financial Resource Strain: Low Risk (05/16/2024) Overall Financial Resource Strain (CARDIA) Difficulty of Paying Living Expenses: Not hard at all Food Insecurity: No Food Insecurity (05/16/2024) Hunger Vital Sign Worried About Running Out of Food in the Last Year: Never true Ran Out of Food in the Last Year: Never true Transportation Needs: No Transportation Needs (05/16/2024) PRAPARE - Transportation Lack of Transportation (Medical): No Lack of Transportation (Non-Medical): No Physical (more content not included)... Normal [facility] Laboratory - Chemistry and C hemistry - challengeon 08-31-2024 Troponin I.cardiac [Mass/Vol] ng/mL NINF - 0.034 ng/mL [facility] [employer] TSH Qn 2.033 m[IU]/L [facility] Troponin I.cardiac [Mass/Vol] ng/mL NINF - 0.034 ng/mL [facility] Laboratory - Chemistry and C hemistry - challengeOrdered By: Omi Cormier on 08-31-2024 Base excess Calc (BldV) [Moles/Vol] 3.6 mmol/L High -3.0 - 3.0 mmol/L [facility] CO2 (BldV) [Partial pressure] 46.5 mm[Hg] [facility] CO2 [Moles/Vol] 30.4 mmol/L High 23.0 - 30.0 mmol/L [facility] HCO3 (Bld) [Moles/Vol] 28.9 mmol/L 21.0 - 30.0 mmol/L [facility] Oxygen (BldV) [Partial pressure] 46.3 mm[Hg] mm Hg [facility] pH (BldV) 7.412 [pH] 7.320 - 7.420 [facility] Laboratory - Hematology and Cell countsOrdered By: Omi Cormier on 08-31-2024 Hemoglobin (Bld) [Mass/Vol] 13.3 g/dL Screen only [facility] NT PRO BNPon 08-31-2024 Natriuretic peptide B (Bld) [Mass/Vol] 35 pg/mL Normal <20-300 [facility] Comment on above: Performed By: #### L [id number], [id number], [id number], [id number] ####Associate Professor Of Philosophy: MARIAA BOLTON ([id number])[facility])[address] [place] [address] Natriuretic peptide B [Mass/ Vol]on 08-31-2024 Natriuretic peptide B (Bld) [Mass/Vol] 35 pg/mL <20 - 300 [facility] No Panel Informationon 08-31 Interpretation and review of laboratory results Normal [facility] No Panel InformationOrdered By: Omi Cormier on 08-31-2024 Interpretation and review of laboratory results Abnormal [facility] Source Of Oxygen Room [facility] Assessment of oxygenation is best done with an arterial blood gas determination. Reference ranges for pO2, bicarbonate, and base excess are for mixed venous blood. Specimens drawn from a peripheral vein will often have higher values. [facility] THYROID STIMULATING HORMONEo n 08-31-2024 THYROID STIMULATING HORMONE 2.033 uIU/mL Normal 0.465-4.680 [facility] Comment on above: Performed By: #### L [id number], [id number], [id number], [id number] ####Associate Professor Of Philosophy: MARIAA BOLTON ([id number])[facility] ([facility])[address] [place] [address] [place] TROPONIN Ion 08-31-2024 Troponin I.cardiac [Mass/Vol] ng/mL Normal <0.034 [facility] Comment on above: Result Comment: MILTON Saul COMMENTS: Patients with high levels of Biotin oral intake (ie >5 mg/day) may have falsely decreased Troponin levels. Performed By: #### L [id number] ####Associate Professor Of Philosophy: MARIAA BOLTON ([id number])[facility] ([facility])[address] TROPONIN, WITH SERIAL REFLEX on 08-31-2024 Troponin I.cardiac [Mass/Vol] ng/mL Normal <0.034 [facility] Comment on above: Result Comment: MILTON Saul COMMENTS: Patients with high levels of Biotin oral intake (ie >5 mg/day) may have falsely decreased Troponin levels. Performed By: #### L AB15, [id number], [id number], [id number] ####Associate Professor Of Philosophy: MARIAA BOLTON ([id number])[facility] VALENZUEL[facility] ([facility])[address] TSH Qnon 08-31-2024 Interpretation and review of laboratory results Normal [facility] Troponin I.cardiac [Mass/Vol ]on 08-31-2024 Interpretation and review of laboratory results Normal [facility] Patients with high levels of Biotin oral intake (ie >5 mg/day) may have falsely decreased Troponin levels. [facility] Patients with high levels of Biotin oral intake (ie >5 mg/day) may have falsely decreased Troponin levels. [facility] Vital signsOrdered By: Meena Cormier on 08-31-2024 Oxygen saturation in Venous blood 81.4 % [facility] [id number] 08-29-2024 [id number] Chante, she is requesting portable o2. Appt scheduled 09/13/24 11:30 AM Normal [facility] 36on 08-28-2024 36 Order placed in fold er for sign. Normal [facility] 36 She needs 2 LPM O2 bled into her autopap at night Normal [facility] 36 Overnight oxymetry result uploaded in media. Normal [facility] 36on 08-21-2024 36 Scanned and faxed. Normal [facility] 36 ----- Message from Eliu Maldonado MD sent at 08/20/2024 1:24 PM EDT ----- I would like this lady to get an overnight oximetry while wearing her auto BiPAP please Normal [facility] Progress Noteon 08-20-2024 Progress Note Patient was identifi ed and seen today via Telehealth by agreement and consent. I used the following Telehealth technology: Audio capability only. Total length of call 10 minutes. The patient was offered and advised video for a more comprehensive evaluation, but the patient declined or was unable to use video. Patient location: Patient Location: Home. This patient encounter is appropriate and reasonable under the circumstances: work . The patient has been advised of the potential risks and limitations of this mode of treatment (including but not limited to the absence of in-person examination) and has agreed to be treated in a remote fashion in spite of them. Any and all of the patient's/patient's family's questions on this issue have been answered and I have made no promises or guarantees to the patient. The patient has also been advised to contact this office for worsening conditions or problems, and seek emergency medical treatment and/or call 911 if the patient deems either necessary. The patient stated that they are currently in the [facility]. If the patient is a minor, permission has been obtained by the parent or guardian for the patient to receive medical care at this visit. 08/20/2024 REFERRING PHYSICIAN: Sudhir Pedraza DO REASON FOR REFERRAL: Chief Complaint Patient presents with Shortness of Breath Sleep Apnea History of Present Illness: Doing better with the BiPAP, sleeping better, feeling better. Breathing is back to what she considers normal, just short of breath on exertion but notes she is deconditioned and that she needs to lose weight. ROS: Review of Systems All other systems reviewed and are negative. 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 Allergic rhinitis BRCA1 negative BRCA2 negative Disease of thyroid gland Fibrocystic breast GERD (gastroesophageal reflux disease) 09/13 Hypertension Liver disease 09/13 Obesity Prediabetes Sleep apnea 03/2024 Past Surgical History Past Surgical History: Procedure Laterality Date APPENDECTOMY BREAST BIOPSY Right 02/17/2024 Adenocarcinoma BREAST LUMPECTOMY Right 02/17/2024 2nd re-excision on 03/29/2024 CHOLECYSTECTOMY COLONOSCOPY HERNIA REPAIR HYSTERECTOMY age 41 OOPHORECTOMY Right Social History: Social History Socioeconomic History Marital status: Tobacco Use Smoking status: Never Passive exposure: Never Smokeless tobacco: Never Vaping Use Vaping status: Never Used Substance and Sexual Activity Alcohol use: Never Drug use: Never Social Drivers of Health Financial Resource Strain: Low Risk (05/16/2024) Overall Financial Resource Strain (CARDIA) Difficulty of Paying Living Expenses: Not hard at all Food Insecurity: No Food Insecurity (05/16/2024) Hunger Vital Sign Worried About Running Out of Food in the Last Year: Never true Ran Out of Food in the Last Year: Never true Transportation Needs: No Transportation Needs (05/16/2024) PRAPARE - Transportation Lack of Transportation (Medical): No Lack of Transportation (Non-Medical): No Physical Activity: Insufficiently Active (05/16/2024) Exercise Vital Sign Days of Exercise per Week: 5 days Minutes of Exercise per Session: 20 min Stress: No Stress Concern Present (05/16/2024) [employer] [place] [employer] - Occupational Stress Questionnaire Feeling of Stress : Not at all Social Connections: Socially Integrated (05/16/2024) Social Connection and Isolation Panel [NHANES] Frequency of Communication with Friends and Family: More than three times a week Frequency of Social Gatherings with Friends and Family: More than three times a week Attends Orthodox Services: 1 to 4 times per year Active Member of Clubs or Organizations: Yes Attends Club or Organization Meetings: More than 4 times per year Marital Status: Intimate Partner Violence: Patient Declined (05/16/2024) Humiliation, Afraid, Rape, and Kick questionnaire Fear of Current or Ex-Partner: Patient declined Emotionally Abused: Patient declined Physically Abused: Patient declined Sexually Abused: Patient declined Housing Stability: Low Risk (05/16/2024) Housing Stability Vital Sign Unable to Pay for Housing in the Last Year: No Number of Times Moved in the Last Year: 0 Homeless in the Last Year: No Medications: Current Outpatient Medications Medication Sig Dispense Refill cetirizine (ZyrTEC) 10 MG tablet Take by mouth. cholecalciferol (Vitamin D-3) 125 MCG (5000 UT) capsule Take 5,000 Units by mouth in the morning. Vitamin C and Zinc combo. hydroCHLOROthiazide (Microzide) 12.5 MG capsule Take 12.5 mg by mouth daily. metFORMIN XR (Glucophage-XR) 500 MG 24 hr tablet Take 1 tablet (500 mg) by mouth daily (with breakfast). Do not crush, chew, or split. 30 tablet 11 NON FORMULARY daily. SUPER DIGESTIVE ENZYME Omeprazol (more content not included)... Normal [facility] CA 125on 06-14-2024 Cancer Ag 125 Qn 4 [arb'U]/mL NINF - 35 U/mL [facility] Comment on above: This test was performed using the Siemens Chemiluminescent method. Values obtained from different assay methods cannot be used interchangeably. CA 125 levels, regardless of value, should not be interpreted as absolute evidence of the presence or absence of disease. [facility] MR Breast - bilateral WO and W contrast Lucas 05-17-2024 No MRI evidence of malignancy in either breast. No findings seen to explain the skin changes. ASSESSMENT: Category 1 Negative RECOMMENDATION: Breast MRI in 1 year Bilateral Clinical correlation Right COMMENTS: Report Dictated on Electronically Signed By: Beatris Regalado MD Electronically Signed Date/Time: 05/17/2024 8:38 AM [facility] Patient Name: BRISSA JEFFERY : 1965 Exam Date/Time: 05/17/2024 07:54 Procedure: BI MR BREAST BILATERAL W AND WO CONTRAST W CAD Ordering Provider: GARZA KRISTINA Reason For Exam: right breast skin changes MRI TECHNIQUE: Clinical Indication: Breast MRI Diagnostic. Clinical Indication: High risk for breast cancer, breast skin changes, history of breast cancer Contrast: Gadavist 12.0 mL IV. Bilateral breast MRI was performed with a dedicated breast coil. Fat saturated T2 weighted and T1 weighted axial images were obtained of both breasts. Dynamic pre-and post contrast axial image sets were obtained of both breasts after intravenous injection of gadolinium based contrast. Delayed post contrast sagittal images were also obtained. Subtraction images and MIP images were generated. Interpretation was made in conjunction with CAD. The patient's prior imaging was reviewed. FINDINGS: There is mild bilateral background enhancement. Right Breast: There is no suspicious mass or non-mass enhancement in the right breast. Left Breast: There is no suspicious mass or non-mass enhancement in the left breast. Other: No axillary or internal mammary lymphadenopathy is appreciated. A T2 bright liver lesion is seen, most consistent with a cyst or hemangioma. [facility] Beatris Regalado MD - 05/17/2024 Patient Name: BRISSA JEFFERY : 1965 [facility]#: [id number] Exam Date/Time: 05/17/2024 07:54 Procedure: BI MR BREAST BILATERAL W AND WO CONTRAST W CAD Ordering Provider: GARZA KRISTINA Reason For Exam: right breast skin changes MRI TECHNIQUE: Clinical Indication: Breast MRI Diagnostic. Clinical Indication: High risk for breast cancer, breast skin changes, history of breast cancer Contrast: Gadavist 12.0 mL IV. Bilateral breast MRI was performed with a dedicated breast coil. Fat saturated T2 weighted and T1 weighted axial images were obtained of both breasts. Dynamic pre-and post contrast axial image sets were obtained of both breasts after intravenous injection of gadolinium based contrast. Delayed post contrast sagittal images were also obtained. Subtraction images and MIP images were generated. Interpretation was made in conjunction with CAD. The patient's prior imaging was reviewed. FINDINGS: There is mild bilateral background enhancement. Right Breast: There is no suspicious mass or non-mass enhancement in the right breast. Left Breast: There is no suspicious mass or non-mass enhancement in the left breast. Other: No axillary or internal mammary lymphadenopathy is appreciated. A T2 bright liver lesion is seen, most consistent with a cyst or hemangioma. IMPRESSION: No MRI evidence of malignancy in either breast. No findings seen to explain the skin changes. ASSESSMENT: Category 1 Negative RECOMMENDATION: Breast MRI in 1 year Bilateral Clinical correlation Right COMMENTS: Report Dictated on Electronically Signed By: Beatris Regalado MD Electronically Signed Date/Time: 05/17/2024 8:38 AM EDT [facility] Rad[facility] Study observation (narrative) [facility] MR Breast - bilateral WO and W contrast IVOrdered By: Beatris Regalado on 05-17-2024 [facility] Work Phone: DBT Breast - bilateral diagn osticon 04-19-2024 Patient Name: BRISSA JEFFERY : 1965 Exam Date/Time: 04/19/2024 08:15 Procedure: BI MAMMOGRAM DIAGNOSTIC TOMOSYNTHESIS BILATERAL Ordering Provider: GARZA KRISTINA Reason For Exam: RISK ALERT: The Cancer Risk Assessment scores below the recommendation of this report contain an outcome above the normal risk range. PATIENT CANCER HISTORY: No Personal History of Cancer (accession [id number]), PATIENT CANCER HISTORY: No Personal History of Cancer (accession [id number]) FAMILY CANCER HISTORY: Paternal Grandmother Breast Cancer age 55, Stomach Cancer Maternal Aunt Breast Cancer age 55 Maternal Aunt Breast Cancer age 55 (accession [id number]), FAMILY CANCER HISTORY: Paternal Grandmother Breast Cancer age 55, Stomach Cancer Maternal Aunt Breast Cancer age 55 Maternal Aunt Breast Cancer age 55 (accession [id number]) COMPARISONS: 2022; 2021; 2020 MAMMOGRAM: Image views: 2D CC and MLO views were acquired. 3D CC and MLO views were acquired. Markings on images: BB's = Nipples; skin lesions Open redding = Palpable Line = Scar TISSUE DENSITY: BIRADS B - There are scattered fibroglandular densities. Images were reviewed with CAD. FINDINGS: The patient recently underwent excision of a malignant right breast skin lesion showing adenocarcinoma. A small excisional site is noted on the superior lateral quadrant the posterior right breast. No suspicious masses, architectural distortions, or suspiciously clustered microcalcifications were identified in the right or left breast. The patient proceeded to ultrasound for further evaluation of the excisional site. BREAST ULTRASOUND: FINDINGS: Targeted ultrasound into the side of malignant excision, demonstrated no mass or suspicious finding. A morphologically normal-appearing axillary tail lymph node was noted in the vicinity. [facility] Darius Valenzuela MD - 04/19/2024 Patient Name: BRISSA JEFFERY : 1965 Exam Date/Time: 04/19/2024 08:15 Procedure: BI MAMMOGRAM DIAGNOSTIC TOMOSYNTHESIS BILATERAL Ordering Provider: GARZA KRISTINA Reason For Exam: RISK ALERT: The Cancer Risk Assessment scores below the recommendation of this report contain an outcome above the normal risk range. PATIENT CANCER HISTORY: No Personal History of Cancer (accession [id number]), PATIENT CANCER HISTORY: No Personal History of Cancer (accession [id number]) FAMILY CANCER HISTORY: Paternal Grandmother Breast Cancer age 55, Stomach Cancer Maternal Aunt Breast Cancer age 55 Maternal Aunt Breast Cancer age 55 (accession [id number]), FAMILY CANCER HISTORY: Paternal Grandmother Breast Cancer age 55, Stomach Cancer Maternal Aunt Breast Cancer age 55 Maternal Aunt Breast Cancer age 55 (accession [id number]) COMPARISONS: 2022; 2021; 2020 MAMMOGRAM: Image views: 2D CC and MLO views were acquired. 3D CC and MLO views were acquired. Markings on images: BB's = Nipples; skin lesions Open redding = Palpable Line = Scar TISSUE DENSITY: BIRADS B - There are scattered fibroglandular densities. Images were reviewed with CAD. FINDINGS: The patient recently underwent excision of a malignant right breast skin lesion showing adenocarcinoma. A small excisional site is noted on the superior lateral quadrant the posterior right breast. No suspicious masses, architectural distortions, or suspiciously clustered microcalcifications were identified in the right or left breast. The patient proceeded to ultrasound for further evaluation of the excisional site. BREAST ULTRASOUND: FINDINGS: Targeted ultrasound into the side of malignant excision, demonstrated no mass or suspicious finding. A morphologically normal-appearing axillary tail lymph node was noted in the vicinity. IMPRESSION: No mammographic or targeted sonographic evidence of malignancy. ASSESSMENT: Category 2 Benign RECOMMENDATION: Clinical correlation CANCER RISK ASSESSMENT: This risk assessment is based on patient provided information collected in a risk survey taken at the time of this examination. LIFETIME BREAST CANCER RISK: Selina 8: 26.7% - If greater than or equal to 20%, consider annual mammogram and annual screening Breast MRI or follow up in high risk clinic. Is the patient at elevated risk based on the HBOC criteria? No (Hereditary Breast and Ovarian Cancer) - If Yes, consider genetic counseling and testing with high risk follow up Is the patient at elevated risk based on the Sheffield Syndrome criteria? No - If Yes, consider genetic counseling and testing with high risk follow up. Report Dictated on Electronically Signed By: Darius Valenzuela MD Electronically Signed Date/Time: 04/19/2024 9:17 AM T [facility] Radiology Study observation (narrative) [facility] No Panel Informationon 04-19 No mammographic or targeted sonographic evidence of malignancy. ASSESSMENT: Category 2 Benign RECOMMENDATION: Clinical correlation CANCER RISK ASSESSMENT: This risk assessment is based on patient provided information collected in a risk survey taken at the time of this examination. LIFETIME BREAST CANCER RISK: Selina 8: 26.7% - If greater than or equal to 20%, consider annual mammogram and annual screening Breast MRI or follow up in high risk clinic. Is the patient at elevated risk based on the HBOC criteria? No (Hereditary Breast and Ovarian Cancer) - If Yes, consider genetic counseling and testing with high risk follow up Is the patient at elevated risk based on the Sheffield Syndrome criteria? No - If Yes, consider genetic counseling and testing with high risk follow up. Report Dictated on Electronically Signed By: Darius Valenzuela MD Electronically Signed Date/Time: 04/19/2024 9:17 AM EDT [facility] No Panel InformationOrdered By: Darius Valenzuela on 04-19-2024 [facility] [employer] Work Phone: US Breast - right limitedon 04-19-2024 [facility] 1965 [id number] Exam Date/Time: 04/19/2024 09:10 Procedure: BI US BREAST LIMITED RIGHT Ordering Provider: GARZA KRISTINA Reason For Exam: abnormal breast imaging RISK ALERT: The Cancer Risk Assessment scores below the recommendation of this report contain an outcome above the normal risk range. PATIENT CANCER HISTORY: No Personal History of Cancer (accession [id number]), PATIENT CANCER HISTORY: No Personal History of Cancer (accession [id number]) FAMILY CANCER HISTORY: Paternal Grandmother Breast Cancer age 55, Stomach Cancer Maternal Aunt Breast Cancer age 55 Maternal Aunt Breast Cancer age 55 (accession [id number]), FAMILY CANCER HISTORY: Paternal Grandmother Breast Cancer age 55, Stomach Cancer Maternal Aunt Breast Cancer age 55 Maternal Aunt Breast Cancer age 55 (accession [id number]) COMPARISONS: 2022; 2021; 2020 MAMMOGRAM: Image views: 2D CC and MLO views were acquired. 3D CC and MLO views were acquired. Markings on images: BB's = Nipples; skin lesions Open redding = Palpable Line = Scar TISSUE DENSITY: BIRADS B - There are scattered fibroglandular densities. Images were reviewed with CAD. FINDINGS: The patient recently underwent excision of a malignant right breast skin lesion showing adenocarcinoma. A small excisional site is noted on the superior lateral quadrant the posterior right breast. No suspicious masses, architectural distortions, or suspiciously clustered microcalcifications were identified in the right or left breast. The patient proceeded to ultrasound for further evaluation of the excisional site. BREAST ULTRASOUND: FINDINGS: Targeted ultrasound into the side of malignant excision, demonstrated no mass or suspicious finding. A morphologically normal-appearing axillary tail lymph node was noted in the vicinity. [facility] Darius Valenzuela MD - 04/19/2024 Patient Name: BRISSA JEFFERY : 1965 Exam Date/Time: 04/19/2024 09:10 Procedure: BI US BREAST LIMITED RIGHT Ordering Provider: GARZA KRISTINA Reason For Exam: abnormal breast imaging RISK ALERT: The Cancer Risk Assessment scores below the recommendation of this report contain an outcome above the normal risk range. PATIENT CANCER HISTORY: No Personal History of Cancer (accession [id number]), PATIENT CANCER HISTORY: No Personal History of Cancer (accession [id number]) FAMILY CANCER HISTORY: Paternal Grandmother Breast Cancer age 55, Stomach Cancer Maternal Aunt Breast Cancer age 55 Maternal Aunt Breast Cancer age 55 (accession [id number]), FAMILY CANCER HISTORY: Paternal Grandmother Breast Cancer age 55, Stomach Cancer Maternal Aunt Breast Cancer age 55 Maternal Aunt Breast Cancer age 55 (accession [id number]) COMPARISONS: 2022; 2021; 2020 MAMMOGRAM: Image views: 2D CC and MLO views were acquired. 3D CC and MLO views were acquired. Markings on images: BB's = Nipples; skin lesions Open redding = Palpable Line = Scar TISSUE DENSITY: BIRADS B - There are scattered fibroglandular densities. Images were reviewed with CAD. FINDINGS: The patient recently underwent excision of a malignant right breast skin lesion showing adenocarcinoma. A small excisional site is noted on the superior lateral quadrant the posterior right breast. No suspicious masses, architectural distortions, or suspiciously clustered microcalcifications were identified in the right or left breast. The patient proceeded to ultrasound for further evaluation of the excisional site. BREAST ULTRASOUND: FINDINGS: Targeted ultrasound into the side of malignant excision, demonstrated no mass or suspicious finding. A morphologically normal-appearing axillary tail lymph node was noted in the vicinity. IMPRESSION: No mammographic or targeted sonographic evidence of malignancy. ASSESSMENT: Category 2 Benign RECOMMENDATION: Clinical correlation CANCER RISK ASSESSMENT: This risk assessment is based on patient provided information collected in a risk survey taken at the time of this examination. LIFETIME BREAST CANCER RISK: Selina 8: 26.7% - If greater than or equal to 20%, consider annual mammogram and annual screening Breast MRI or follow up in high risk clinic. Is the patient at elevated risk based on the HBOC criteria? No (Hereditary Breast and Ovarian Cancer) - If Yes, consider genetic counseling and testing with high risk follow up Is the patient at elevated risk based on the Sheffield Syndrome criteria? No - If Yes, consider genetic counseling and testing with high risk follow up. 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 Cervix visualized. Nabothian cysts noted. Bilateral ovaries not seen. Right ovary is surgically absent; left ovary not seen. There is no free fluid visualized. Recommendations Clinically correlate. Repeat US will be performed if requested. History General History Other: u/s 05/04/22 showed The uterus is surgically absent s/p supracervical hysterectomy. Cervix has Nabothian cysts present and appears normal. The right ovary is surgically absent The left ovary is not visualized. There is no free fluid visualized nor evidence of mucin in the pelvis. Medical History Past surgical history: Previous surgeries performed Surgery: right salpingo-oophorectomy 2018 Details: michael tumor Surgery: supracervical hysterectomy Year 2006 Details: for bleeding Surgery: Appendectomy Year 2018 Details: at time of ovarian surgery Surgery: cholecystectomy Method Transabdominal, transvaginal, 3D ultrasound examination, Color Doppler examination Uterus Uterus: Visualized Uterus details: supracervical hysterectomy noted Cervix details: cystic lesions identified suggesting superficial Nabothian cysts Right Ovary Rt ovary: Not visualized Rt ovary details: right oophorectomy noted Left Ovary Lt ovary: Not visualized Lt ovary details: not seen due to overlying bowel/gas Cul de Sac Visualized. no free fluid visualized Performed By: Eryn Chavira RDMS Read By: Annalise Nieto M.D. MATERNAL MEDICINE [facility] 04-06-2024 CNPN Telephone (OBGYIN) BRISSA JEFFERY ([id number]) 1965 F Date Time Provider Department 04/06/24 ANTOINETTE CARTER During your visit today, we recorded the following information about you: Veena Whatley 04/06/2024 8:54 AM Signed Pt came to desk after her appt to schedule her next US. Order is not placed. Please review and advise Kathi Sloan RN 04/06/2024 8:59 AM Signed Please review today's US and advise Thanks Pt asking for a call once next US order is placed Pt aware that Dr Carter is out of the office until Tuesday Antoinette Carter MD 04/08/2024 5:39 PM Signed I placed the order on 04/04/24 Kathi Sloan RN 04/09/2024 8:[address] US order again For some reason they can not see it to schedule Thanks Antoinette Carter MD 04/09/2024 12:54 PM Signed Please see if you can see this order to schedule this for the patient then call her and help her to get it scheduled. Thanks Antoinette Carter MD 04/09/2024 12:54 PM Signed Addended by: ANTOINETTE CARTER on: 04/09/2024 12:54 PM Modules accepted: Orders Veena Whatley 04/09/2024 1:11 PM Addendum Order is shown. I tried to do it from the referral, but it is not allowing me. Zully Palomares 04/10/2024 8:22 AM Signed Call placed to pt for scheduling, Referral for US is currently pending under review, Pt states she already spoke to our project financial analyst dept which advised pt that US can take up to 20 days for approval. Pt informed that she will call office once she hears back. Thank you. Allergies As of Date: 04/06/2024 Noted Allergy Reaction BACTRIM (SULFAMETHOXAZOLE-TRIM ETH*03/21/2018 14 - Other: See Comments 16 - Unknown Comments: [place] strange on it spacey Light-headed ESOMEPRAZOLE 08/24/2021 14 - Other: See Comments Comments: Throat closing and dizzy. PANTOPRAZOLE 08/24/2021 14 - Other: See Comments Comments: No bm for 1 wk and severe right upper quadrant pain. 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 - triamcinolone acetonide (KENALOG) 0.1 % cream Apply to affected areas of breasts twice a day for up to two weeks - MULTIVITAMIN ORAL Take by mouth. - INV VITAMIN D3 5000 UNITS CAPSULE (IRB 19-1548) Take 5,000 Units by mouth once daily. For Investigational Drug Use Only. PI: Kisha Negrete, PhD. Take one capsule by mouth daily for 3 months prior to surgery and 3 months after surgery. - levothyroxine (SYNTHROID) 50 mcg tablet Take 1 tablet by mouth once daily. - triamcinolone acetonide (NASACORT NASAL) Use 1 [place] in the nose daily at bedtime. - oxymetazoline HCl (AFRIN NASAL) Use 1 [place] in the nose daily at bedtime. Problem List As Of Date 04/06/2024 Noted Resolved ALLERGIC RHINITIS NOS [J30.9] 02/07/2004 Goiter [E04.9] 09/17/2013 LINDSAY (obstructive sleep apnea) [G47.33] 09/17/2013 Obesity [E66.9] 04/04/2020 Breast swelling [N63.0] 03/19/2015 04/04/2017 Inclusion cyst of right breast [L72.0] 03/19/2015 05/27/2018 Abnormal finding on breast imaging [R92.8] 04/04/2017 05/27/2018 Encounter for screening colonoscopy [Z12.11] 04/04/2017 04/10/2020 Multiple thyroid nodules [E04.2] 05/24/2018 07/15/2020 Morbid obesity with BMI of 40.0-44.9, adult (HC*06/01/2018 Vitamin D deficiency [E55.9] 06/13/2018 Bilateral fibrocystic breast changes [N60.11, N*07/24/2018 Family history of breast cancer [Z80.3] 07/24/2018 04/10/2020 Excess weight [E66.3] 07/24/2018 04/10/2020 Elevated blood pressure reading [R03.0] 10/23/2018 04/10/2020 Right lower quadrant pain [R10.31] 01/09/2019 12/03/2019 Adnexal mass [N94.89] 01/09/2019 07/15/2020 Subclinical hypothyroidism [E03.8] 05/17/2019 Elevated blood pressure reading without diagnos*05/17/2019 07/16/2021 RUQ pain [R10.11] 12/03/2019 Fatty liver [K76.0] 07/15/2020 Nava's esophagus without dysplasia [K22.70] 07/15/2020 Primary hypertension [I10] 07/16/2021 Thrombocytopenia (HCC) [D69.6] 07/16/2021 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] 07/20/2021 Other constipation [K59.09] 08/24/2021 Encounter Status:Closed by KATHI SLOAN RN on 04/09/24 Normal [facility] US Pelvison 04-06-2024 Radiology Study observation (narrative) [facility] HEAD AND NECK NEXT MADALYNTIO N SEQUENCINGon 03-12-2024 HEAD AND NECK NGS Normal [facility] Comment on above: Order Comment: Speci men Type: FORMALIN-FIXED PARAFFIN-EMBEDDED TISSUE SPECIMEN Ordering Facility: [facility] Address: [address] [place] [address] Result Comment: Head and Neck Next Generation Sequencing Laboratory Accession Number: [id number] Case #: [id number] Block #: A1 ([id number] A2) Sample Type: FFPET % Tumor: 100 Result: Not Detected. No gene fusions were detected in the submitted specimen. Methodology: The Head and Neck Tumor Fusion Analysis by Next Generation Sequencing is a laboratory developed test (LDT) based on anchored multiplex polymerase chain reaction (PCR). Total nucleic acid extracted from the specimen was subjected to nested multiplex PCR. The amplicons were subjected to massively parallel sequencing with 150x2 cycle pair-end reads. A custom informatics pipeline (v6.2.7) evaluating 30 genes (see Limitations below for interrogated regions) was used for read alignment (genome build [id number]), fusion gene identification (if any), and annotation. Reporting criteria of a gene fusion are (i) a minimum of five unique reads spanning the fusion junction, (ii) at least three unique start sites are present among these unique reads, and (iii) at least 10% of reads surrounding the break point support the fusion event. Fusion genes that do not meet the above criteria may be reported if they have been previously documented. Limitations: Based on validation, this LDT delivered greater than 900,000 total reads. The test demonstrated 94.1% sensitivity and 75.0% specificity in fusion gene identification. The lower limit of detection is approximately 10% of tumor cells present in the submitted specimen. Fusions below 10% of tumor proportion may be reported at the discretion of the molecular pathology professional staff if the technical quality of the sequencing is sufficient at that location and the call is unequivocal. Reported variants include known disease associated gene fusions and unclear fusion variants with little or no literature support. A sample may be reported as quality not sufficient when the following quality metric circumstances are not met: (i) the number of unique RNA reads is <20% of total reads; (ii) the average number of RNA reads with unique start sites derived from the control gene-specific primer 2 (GSP2) is <10. Due to the labile nature of this LDT's analyte, RNA, false negative results may not be excluded. Fusions resulting from complex rearrangements may not be detected. Fusions which have not been directly validated (see asterisks in table below) may not be detected. Structural variants that do not lead to a chimeric fusion transcript will not be detected. This test is not designed to detect single nucleotide variants, insertions, deletions, copy number changes, and RNA transcript isoforms. This test does not distinguish between somatic and inherited variants. The following 30 genes and corresponding exons are interrogated in this LDT: Gene Transcript Exon(s) Covered ALK NM_[id number] 2,4,6,10,16-23,25,26 BRAF* NM_004333 1-5,7-16,18 CAMTA1 NM_015215 3,8-10 CRTC1* NM_015321 1-4 ETV6 NM_001987 1-7 EWSR1 NM_005243 4-14 FOS* NM_005252 4 FOSB NM_006732 1,2 FOXO1 NM_002015 1-3 FUS NM_004960 3-11,13,14 GL1A NM_005269 4-7 HMGA2 NM_003483 1-5 MAML2 NM_032427 2,3 MKL2* NM_014048 11-13 MYB* NM_[id number] 7-9,11-16 NCOA1* NM_147223 12-15 NR4A3 NM_173200 3,4 NR4A3 NM_006981 2 NTRK1 NM_002529 2,4,6,8,10-14 NTRK2 NM_006180 5,7,9,11-18 NTRK3 NM_[id number] 15 NTRK3 NM_002530 4,7,10,12-16 NUTM1 NM_175741 2-4,6 PAX3 NM_181459 6-8 PAX7 NM_002584 6-8 PLAG1* NM_002655 1-4 PRKD1* NM_002742 10-13 RET NM_020630 2,4,6,11,15,16 RET NM_020975 8-14 SS18 NM_[id number] 2-6,8-11 SS18 NM_005637 2,3 STAT6 NM_[id number] 1-7,15-20 TFE3 NM_006521 2-8 YAP1 NM_[id number] 1-9 *Gene not evaluated during clinical validation. Disclaimer: This test was developed and its performance characteristics determined by [facility] [place] [facility] It has not been cleared or approved by the FDA. [facility] is regulated under CLIA as certified to perform high- complexity testing. This test is used for clinical purposes. It should not be regarded as investigational or for research. [place] [address]. [place] Number: [id number] As reviewed by Marilyn Bravo MD Performed By: #### H DNK #### [facility] CLIA [id number] [address] [place] [address] OF [facility] SURGICAL PATHOLOGY REFERENCE LAB CONSULTon 03-12-2024 CASE REPORT Normal [facility] Comment on above: Order Comment: Speci men Type: FORMALIN-FIXED PARAFFIN-EMBEDDED TISSUE SPECIMEN Ordering Facility: [facility] Address: [address] [place] [address] Result Comment: Surg [facility] Pathology Report Case: [id number] Authorizing Provider: Elvin Cortez MD Collected: 03/12/2024 02:01 PM Ordering Location: [facility] Received: 03/12/2024 02:03 PM [facility] Pathologist: Reg Neumann MD Specimen: Slide(s), [address] [employer] [facility] [id number] Performed By: #### L [id number] #### [facility] CLIA [id number] [address] [place] [address] OF [facility] CLINICAL HISTORY CONSULT REQUESTED Normal [facility] Comment on above: Order Comment: Speci men Type: FORMALIN-FIXED PARAFFIN-EMBEDDED TISSUE SPECIMEN Ordering Facility: [facility] Address: [address] [place], [place] [id number] Performed By: #### L [id number] #### [facility] CLIA [id number] [address] [place], [place] [address] [place] [address] [place] DIAGNOSIS COMMENT Normal [facility] Comment on above: Order Comment: Speci men Type: FORMALIN-FIXED PARAFFIN-EMBEDDED TISSUE SPECIMEN Ordering Facility: [facility] Address: [address] [place] [address] Result Comment: Many thanks for sending in consultation this specimen from the lateral breast of a 58-year-old female. Clinically, the differential diagnosis included a neoplasm of uncertain behavior, dermatofibroma, or cyst. Histologic sections reveal a deep dermal proliferation of variably sized cribriform nodules and scattered ducts with amorphous basophilic frothy secretions and occasional eosinophilic secretions embedded in a desmoplastic stroma. Cytologically, the lesional cells demonstrate somewhat uniform enlarged ovoid nuclei, vesicular chromatin, basophilic nucleoli, and small amounts of eosinophilic cytoplasm. Enclosed stains performed at the outside institution are reviewed at the [facility] with appropriate controls. The ductal cells are positive for CK7, pankeratin, and CD117 (weak). The SOX10 stain highlights a subset of the ductal cells and peripheral myoepithelial cells. The SMMHC and p63 stains are negative negative for myoepithelial cells. The lesional cells are negative for CK20, estrogen receptor, progesterone receptor, GATA3, and Jemison-1. In order to further evaluate the lesion, additional staining is performed at the [facility] with appropriate controls on the provided slides. The lesional cells are positive for S100 and negative for driscoll TRK. The next generation sequencing studies were negative for effusions associated with head and neck neoplasms (see separate report). This is a very challenging case. 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 This tumor may show immunoreactivity for S100 protein, but is typically negative for myopathy Toro marker such as p63 and SMMHC. I am unable to find in the literature where this tumor has been studied for expression of SOX10. Reexcision with negative margins and continued clinical follow-up are recommended. This case was also reviewed by Dr. Hope of the breast pathology service who agrees that the that this is unlikely to be a breast primary carcinoma. Clinical correlation remains essential. Thank you for sending this case in consultation. Please call the Dermatopathology Consultation Service at [phone] with questions or if additional follow-up information becomes available regarding this patient. This case was reviewed in conjunction with the Dermatopathology Fellow, Dr. Keys. Laboratory Developed Test (LDT) Disclaimer: Performance characteristics of immunohistochemical, immunofluorescent and chromogenic in-situ hybridization tests have been determined by the performing laboratory within [facility]???[facility] Pathology and Laboratory Medicine Department ([facility], [facility], [facility], [facility], [facility], or [facility]) in a manner consistent with CLIA requirements. One or more of these tests have not been cleared or approved by the FDA. RT-PLM is regulated under CLIA as qualified to perform high-complexity testing. These tests are used for clinical purposes. They should not be regarded as investigational or for research. Positive and negative controls stain appropriately. 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 Performed By: #### L [id number] #### [facility] CLIA [id number] [address] [place] [address] FINAL PERFORMING LAB Normal [facility] Comment on above: Order Comment: Speci men Type: FORMALIN-FIXED PARAFFIN-EMBEDDED TISSUE SPECIMEN Ordering Facility: [facility] Address: [address] [place] [address] Result Comment: Diag nostic interpretation performed at [facility], [address] [place], [place] [id number] CLIA# [id number] Foreclosure Home Inspector: Vipin Reed M.D. Performed By: #### L [id number] #### [facility] CLIA [id number] [address] [place] [address] [place] Basophil percentageOrdered B y: Devin Fuentes on 01-23-2024 Bilirubin [Mass/Vol] 0.40 mg/dL 0.20-1.00 [facility] Comment on above: For patients on eltr ombopag therapy, use of Dimension [place] TBIL is not recommended. Chloride [Moles/Vol] 105 mmol/L 98-107 [facility] Glucose [Mass/Vol] 90 mg/dL 74-106 [facility] Potassium [Moles/Vol] 3.5 mmol/L 3.5-5.1 [facility] Protein [Mass/Vol] 7.1 g/dL 6.4-8.2 [facility] Sodium [Moles/Vol] 141 mmol/L 136-145 [facility] Laboratory - Chemistry and C hemistry - challengeOrdered By: Devin Fuentes on 01-23-2024 Albumin/Globulin [Mass ratio] 1.2 {ratio} 0.9-2.4 [facility] ALP [Catalytic activity/Vol] 39 U/L 45-117 [facility] ALT [Catalytic activity/Vol] 38 U/L 13-56 [facility] CO2 [Moles/Vol] 32.0 mmol/L 21.0-32.0 [facility] Globulin (S) [Mass/Vol] 3.3 g/dL 2.2-4.2 [facility] Urea nitrogen/Creatinine [Mass ratio] 13.8 mg/mg 10-20 [facility] No Panel InformationOrdered By: Devin Fuentes on 01-23-2024 Estimated GFR (MDRD) Amer 79 mL/min >60 [facility] Comment on above: GFR Calc Estimated GFR (MDRD) Non-Af Amer 65 mL/min >60 [facility] Comment on above: Non- GFR Calc Serum or plasma calcium osmel urement (mass/volume)Ordered By: Devin Fuentes on 01-23-2024 Calcium [Mass/Vol] 8.9 mg/dL 8.5-10.1 [facility] Serum or plasma creatinine m easurement (mass/volume)Ordered By: Devin Fuentes on 01-23-2024 Creatinine [Mass/Vol] 0.94 mg/dL 0.55-1.02 [facility] Comment on above: The validity of the calculated GFR & GFRAA in patients over 70 years has not been determined. Clinical correlation is essential. Serum or plasma thyroid stim ulating hormone (TSH) measurement (units/volume)Ordered By: Devin Fuentes on 01-23-2024 TSH Qn 1.68 uIU/mL 0.358-3.74 [facility] Serum or plasma urea nitroge n measurement (mass/volume)Ordered By: Devin Fuentes on 01-23-2024 Urea nitrogen [Mass/Vol] 13 mg/dL 7-18 [facility] Thin prep Papanicolaou smear with manual screeningOrdered By: Devin Fuentes on 01-23-2024 Thin prep Papanicolaou smear with manual screening 3.8 g/dL 3.2-5.0 [facility] Thin prep Papanicolaou smear with manual screening 23 U/L 15-37 [facility] Thin prep Papanicolaou smear with manual screening 4 5-15 [facility] Thin prep Papanicolaou smear with manual screening 1.24 ng/dL 0.76-1.46 [facility] Absolute lymphocyte countOrd ered By: Omaira Arriola on 09-09-2023 Lymphocytes Auto (Unsp spec) [#/Vol] 2.20 10*3/uL 0.83-4.51 [facility] Basophil percentageOrdered B y: Omaira Arriola on 09-09-2023 Basophils/100 WBC (Bld) 0.2 % 0-1 [facility] Bilirubin [Mass/Vol] 0.30 mg/dL 0.20-1.00 [facility] Comment on above: For patients on eltr ombopag therapy, use of Dimension [place] TBIL is not recommended. Chloride [Moles/Vol] 105 mmol/L 98-107 [facility] Eosinophils/100 WBC (Bld) 2.8 % 0-5 [facility] Glucose [Mass/Vol] 88 mg/dL 74-106 [facility] Neutrophils (Bld) [#/Vol] 5.0 10*3/uL 2.0-7.7 [facility] Neutrophils/100 WBC (Bld) 61.9 % 47-70 [facility] Potassium [Moles/Vol] 3.5 mmol/L 3.5-5.1 [facility] Protein [Mass/Vol] 7.3 g/dL 6.4-8.2 [facility] Sodium [Moles/Vol] 143 mmol/L 136-145 [facility] WBC (Bld) [#/Vol] 8.2 10*3/uL 4.4-11.0 [facility] Blood erythrocytes count (nu mber/volume)Ordered By: Omaira Arriola on 09-09-2023 RBC (Bld) [#/Vol] 4.36 10*6/uL 4.2-5.4 [facility] Blood hemoglobin measurement (mass/volume)Ordered By: Omaira Arriola on 09-09-2023 Hemoglobin (Bld) [Mass/Vol] 12.4 g/dL 12.0-15.0 [facility] Blood lymphocytes/100 leukoc ytesOrdered By: Omaira Arriola on 09-09-2023 Lymphocytes/100 WBC (Bld) 27.0 % 19-41 [facility] Blood monocytes/100 leukocyt esOrdered By: Omaira Arriola on 09-09-2023 Monocytes/100 WBC (Bld) 7.6 % 0-10 [facility] Blood platelet mean volumeOr dered By: Omaira Arriola on 09-09-2023 Platelet mean volume (Bld) [Entitic vol] 10.2 fL 6.2-12.0 [facility] Determination of erythrocyte mean corpuscular volume (MCV)Ordered By: Omaira Arriola on 09-09-2023 MCV (RBC) [Entitic vol] 89.2 fL 81-99 [facility] Hematocrit Auto (Bld) [Volum e fraction]Ordered By: Omaira Arriola on 09-09-2023 Hematocrit (Bld) [Volume fraction] 38.9 % 37-47 [facility] Laboratory - Chemistry and C hemistry - challengeOrdered By: Omaira Arriola on 09-09-2023 ALP [Catalytic activity/Vol] 44 U/L 45-117 [facility] ALT [Catalytic activity/Vol] 35 U/L 13-56 [facility] CO2 [Moles/Vol] 32.0 mmol/L 21.0-32.0 [facility] Globulin (S) [Mass/Vol] 3.4 g/dL 2.2-4.2 [facility] Urea nitrogen/Creatinine [Mass ratio] 19.0 mg/mg 10-20 [facility] Laboratory - Chemistry and C hemistry - challengeOrdered By: Devin Fuentes on 09-09-2023 Free T4 [Mass/Vol] 1.21 ng/dL 0.76-1.46 [facility] Laboratory - Hematology and Cell countsOrdered By: Omaira Arriola on 09-09-2023 Erythrocyte distribution width (RBC) [Entitic vol] 46.5 fL 35.1-43.9 [facility] Erythrocyte distribution width (RBC) [Ratio] 14.2 % 11.6-14.6 [facility] Immature granulocytes/100 WBC (Bld) 0.500 % 0.0-0.9 [facility] Comment on above: IG% - Immature Granu locytes (promyelocytes, myelocytes and metamyelocytes) > 1% indicates that a LEFT SHIFT is Present. MCH (RBC) [Entitic mass] 28.4 pg 27.0-32.0 [facility] Nucleated RBC/100 WBC (Bld) [Ratio] 0 % 0-5 [facility] MCHC Auto (RBC) [Mass/Vol]Or dered By: Omaira Arriola on 09-09-2023 MCHC (RBC) [Mass/Vol] 31.9 g/dL 32-36 [facility] No Panel InformationOrdered By: Omaira Arriola on 09-09-2023 Estimated GFR (MDRD) Amer 70 mL/min >60 [facility] Comment on above: GFR Calc Estimated GFR (MDRD) Non-Af Amer 57 mL/min >60 [facility] Comment on above: Non- GFR Calc No Panel InformationOrdered By: Devin Fuentes on 09-09-2023 Thyroid Stimulating Hormone (TSH) 1.97 uIU/mL 0.358-3.74 [facility] Platelets bldOrdered By: Loyda Arriola on 09-09-2023 Platelets (Bld) [#/Vol] 91 10*3/uL 150-450 [facility] Serum or plasma albumin osmel urement (mass/volume)Ordered By: Omaira Arriola on 09-09-2023 Albumin [Mass/Vol] 3.9 g/dL 3.2-5.0 [facility] Serum or plasma albumin/glob ulin mass ratioOrdered By: Omaira Arriola on 09-09-2023 Albumin/Globulin [Mass ratio] 1.1 {ratio} 0.9-2.4 [facility] Serum or plasma calcium osmel urement (mass/volume)Ordered By: Omaira Arriola on 09-09-2023 Calcium [Mass/Vol] 8.9 mg/dL 8.5-10.1 [facility] Serum or plasma creatinine m easurement (mass/volume)Ordered By: Omaira Arriola on 09-09-2023 Creatinine [Mass/Vol] 1.05 mg/dL 0.55-1.02 [facility] Comment on above: The validity of the calculated GFR & GFRAA in patients over 70 years has not been determined. Clinical correlation is essential. Serum or plasma urea nitroge n measurement (mass/volume)Ordered By: Omaira Arriola on 09-09-2023 Urea nitrogen [Mass/Vol] 20 mg/dL 7-18 [facility] Thin prep Papanicolaou smear with manual screeningOrdered By: Omaira Arriola on 09-09-2023 Thin prep Papanicolaou smear with manual screening 14 U/L 15-37 [facility] Thin prep Papanicolaou smear with manual screening 6 5-15 [facility] CBCon 08-30-2023 Hemoglobin (Bld) [Mass/Vol] 12.6 g/dL 12.0 - 15.0 g/dL [facility] Platelets (Bld) [#/Vol] 90 10*3/uL Abnormal 150 - 450 K/uL [facility] WBC (Bld) [#/Vol] 6.0 10*3/uL 3.44.4 - 11.0 K/uL [facility] Absolute lymphocyte countOrd ered By: Joyce Kelley on 08-16-2023 Lymphocytes Auto (Unsp spec) [#/Vol] 1.63 10*3/uL 0.83-4.51 [facility] Basophil percentageOrdered B y: Joyce Kelley on 08-16-2023 Basophils/100 WBC (Bld) 0.3 % 0-1 [facility] Eosinophils/100 WBC (Bld) 3.7 % 0-5 [facility] Neutrophils (Bld) [#/Vol] 3.7 10*3/uL 2.0-7.7 [facility] Neutrophils/100 WBC (Bld) 61.3 % 47-70 [facility] WBC (Bld) [#/Vol] 6.0 10*3/uL 4.4-11.0 [facility] Blood erythrocytes count (nu mber/volume)Ordered By: Joyce Kelley on 08-16-2023 RBC (Bld) [#/Vol] 4.45 10*6/uL 4.2-5.4 [facility] Blood hemoglobin measurement (mass/volume)Ordered By: Joyce Kelley on 08-16-2023 Hemoglobin (Bld) [Mass/Vol] 12.6 g/dL 12.0-15.0 [facility] Blood lymphocytes/100 leukoc ytesOrdered By: Joyce Kelley on 08-16-2023 Lymphocytes/100 WBC (Bld) 27.2 % 19-41 [facility] Blood monocytes/100 leukocyt esOrdered By: Joyce Kelley on 08-16-2023 Monocytes/100 WBC (Bld) 7.0 % 0-10 [facility] Blood platelet mean volumeOr dered By: Joyce Kelley on 08-16-2023 Platelet mean volume (Bld) [Entitic vol] 9.9 fL 6.2-12.0 [facility] CNPNon 08-16-2023 DOMINIQUEN Telephone ([facility]) BRISSA JEFFERY ([id number]) 1965 F Date Time Provider Department 08/16/23 MATIAS ALVAREZ During your visit today, we recorded the following information about you: Allergies As of Date: 08/16/2023 Noted Allergy Reaction BACTRIM (SULFAMETHOXAZOLE-TRIM ETH*03/21/2018 14 - Other: See Comments 16 - Unknown Comments: [place] strange on it spacey Light-headed ESOMEPRAZOLE 08/24/2021 14 - Other: See Comments Comments: Throat closing and dizzy. PANTOPRAZOLE 08/24/2021 14 - Other: See Comments Comments: No bm for 1 wk and severe right upper quadrant pain. Date Reviewed: 05/10/2023 Reviewed by: Antoinette Carter MD - Fully Assessed Reason for Visit: Outside Labs Results [437] Cmt: [facility] Prescriptions as of 08/16/2023 - hydroCHLOROthiazide 12.5 mg capsule Take 1 capsule by mouth once daily. - triamcinolone acetonide (KENALOG) 0.1 % cream Apply to affected areas of breasts twice a day for up to two weeks - MULTIVITAMIN ORAL Take by mouth. - INV VITAMIN D3 5000 UNITS CAPSULE (IRB 19-1548) Take 5,000 Units by mouth once daily. For Investigational Drug Use Only. PI: Kisha Negrete, PhD. Take one capsule by mouth daily for 3 months prior to surgery and 3 months after surgery. - levothyroxine (SYNTHROID) 50 mcg tablet Take 1 tablet by mouth once daily. - triamcinolone acetonide (NASACORT NASAL) Use 1 [place] in the nose daily at bedtime. - oxymetazoline HCl (AFRIN NASAL) Use 1 [place] in the nose daily at bedtime. Problem List As Of Date 08/16/2023 Noted Resolved ALLERGIC RHINITIS NOS [J30.9] 02/07/2004 Goiter [E04.9] 09/17/2013 LINDSAY (obstructive sleep apnea) [G47.33] 09/17/2013 Obesity [E66.9] 04/04/2020 Breast swelling [N63.0] 03/19/2015 04/04/2017 Inclusion cyst of right breast [L72.0] 03/19/2015 05/27/2018 Abnormal finding on breast imaging [R92.8] 04/04/2017 05/27/2018 Encounter for screening colonoscopy [Z12.11] 04/04/2017 04/10/2020 Multiple thyroid nodules [E04.2] 05/24/2018 07/15/2020 Morbid obesity with BMI of 40.0-44.9, adult (HC*06/01/2018 Vitamin D deficiency [E55.9] 06/13/2018 Bilateral fibrocystic breast changes [N60.11, N*07/24/2018 Family history of breast cancer [Z80.3] 07/24/2018 04/10/2020 Excess weight [E66.3] 07/24/2018 04/10/2020 Elevated blood pressure reading [R03.0] 10/23/2018 04/10/2020 Right lower quadrant pain [R10.31] 01/09/2019 12/03/2019 Adnexal mass [N94.89] 01/09/2019 07/15/2020 Subclinical hypothyroidism [E03.8] 05/17/2019 Elevated blood pressure reading without diagnos*05/17/2019 07/16/2021 RUQ pain [R10.11] 12/03/2019 Fatty liver [K76.0] 07/15/2020 Nava's esophagus without dysplasia [K22.70] 07/15/2020 Primary hypertension [I10] 07/16/2021 Thrombocytopenia (HCC) [D69.6] 07/16/2021 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] 07/20/2021 Other constipation [K59.09] 08/24/2021 Encounter Status:Closed by IOANA DIOR on 08/16/23 Normal [facility] Determination of erythrocyte mean corpuscular volume (MCV)Ordered By: Joyce Kelley on 08-16-2023 MCV (RBC) [Entitic vol] 87.4 fL 81-99 [facility] Hematocrit Auto (Bld) [Volum e fraction]Ordered By: Joyce Kelley on 08-16-2023 Hematocrit (Bld) [Volume fraction] 38.9 % 37-47 [facility] Laboratory - Hematology and Cell countsOrdered By: Joyce Kelley on 08-16-2023 Erythrocyte distribution width (RBC) [Entitic vol] 45.6 fL 35.1-43.9 [facility] Erythrocyte distribution width (RBC) [Ratio] 14.4 % 11.6-14.6 [facility] Immature granulocytes/100 WBC (Bld) 0.500 % 0.0-0.9 [facility] Comment on above: IG% - Immature Granu locytes (promyelocytes, myelocytes and metamyelocytes) > 1% indicates that a LEFT SHIFT is Present. MCH (RBC) [Entitic mass] 28.3 pg 27.0-32.0 [facility] Nucleated RBC/100 WBC (Bld) [Ratio] 0 % 0-5 [facility] MCHC Auto (RBC) [Mass/Vol]Or dered By: Joyce Kelley on 08-16-2023 MCHC (RBC) [Mass/Vol] 32.4 g/dL 32-36 [facility] Platelets bldOrdered By: David teresa Allie on 08-16-2023 Platelets (Bld) [#/Vol] 90 10*3/uL 150-450 [facility] CALCIFIDIOL ([id number]) VIT D 25 Ordered By: Shop Manager on 08-02-2023 25-hydroxyvitamin D [Mass/Vol] 29.4 ng/mL Abnormal 30.0-100.0 [facility]; [facility] Work Phone: Comment on above: Vitamin D deficiency has been defined by the [place] ofMedicine and an Endocrine Society practice guideline as alevel of serum 25-OH vitamin D less than 20 ng/mL (1,2).The Endocrine Society went on to further define vitamin Dinsufficiency as a level between 21 and 29 ng/mL (2).1. IOM ([place] of Medicine). 2010. Dietary reference intakes for calcium and D. [place]: The National Academies Press.2. Cony MF, Cheng NC, Brianne HUDSON, et al. Evaluation, treatment, and prevention of vitamin D deficiency: an Endocrine Society clinical practice guideline. JCEM. 2010; 96(7):1911-30. A courtesy copy of t his report has been sent to [phone] WAS FASTINGPERFORMED BY: [facility] [id number] CBC with auto diff ([id number])Or dered By: Shop Manager on 08-02-2023 Basophils (Bld) [#/Vol] 0.0 10*3/uL Normal 0.0-0.2 [facility]; [facility] Work Phone: Comment on above: A courtesy copy of t his report has been sent to [phone] WAS FASTINGPERFORMED BY: [employer] [facility] [id number] Basophils/100 WBC (Bld) 0 % Normal [facility]; [facility] Work Phone: Comment on above: A courtesy copy of t his report has been sent to [phone] WAS FASTINGPERFORMED BY: [place] [employer] [facility] [id number] Eosinophils (Bld) [#/Vol] 0.3 10*3/uL Normal 0.0-0.4 [facility]; [facility] Work Phone: Comment on above: A courtesy copy of t his report has been sent to [phone] WAS FASTINGPERFORMED BY: [place] [employer] [place] [facility] [id number] Eosinophils/100 WBC (Bld) 4 % Normal [facility]; [facility] Work Phone: Comment on above: A courtesy copy of t his report has been sent to [phone] WAS FASTINGPERFORMED BY: [employer] [facility] [id number] Erythrocyte distribution width (RBC) [Ratio] 13.6 % Normal 11.7-15.4 [facility]; [facility] Work Phone: Comment on above: A courtesy copy of t his report has been sent to [phone] WAS FASTINGPERFORMED BY: [place] [employer]70 [facility] [id number] Hematocrit (Bld) [Volume fraction] 36.6 % Normal 34.0-46.6 [facility]; [facility] Work Phone: Comment on above: A courtesy copy of t his report has been sent to [phone] WAS FASTINGPERFORMED BY: [place] IND [facility] [id number] [facility] [id number] Hemoglobin (Bld) [Mass/Vol] 12.2 g/dL Normal 11.1-15.9 [facility]; [facility] Work Phone: Comment on above: A courtesy copy of t his report has been sent to [phone] WAS FASTINGPERFORMED BY: [place] [employer] Txynty0115 [facility] [id number] Immature granulocytes (Bld) [#/Vol] 0.0 10*3/uL Normal 0.0-0.1 [facility]; [facility] Work Phone: Comment on above: A courtesy copy of t his report has been sent to [phone] WAS FASTINGPERFORMED BY: [place] [employer] [id number] [facility] [id number] Immature granulocytes/100 WBC (Bld) 0 % Normal [facility]; [facility] Work Phone: Comment on above: A courtesy copy of t his report has been sent to [phone] WAS FASTINGPERFORMED BY: [place] [employer] [id number] [facility] [id number] Lymphocytes (Bld) [#/Vol] 1.4 10*3/uL Normal 0.7-3.1 [facility]; [facility] Work Phone: Comment on above: A courtesy copy of t his report has been sent to [phone] WAS FASTINGPERFORMED BY: [employer] [id number] [facility] [id number] Lymphocytes/100 WBC (Bld) 24 % Normal [facility]; [facility] Work Phone: Comment on above: A courtesy copy of t his report has been sent to [phone] WAS FASTINGPERFORMED BY: [employer] [id number] [facility] [id number] MCH (RBC) [Entitic mass] 28.6 pg Normal 26.6-33.0 [facility]; [facility] Work Phone: Comment on above: A courtesy copy of t his report has been sent to [phone] WAS FASTINGPERFORMED BY: [place] [facility] Udrlaf3592 [facility] [id number] MCHC (RBC) [Mass/Vol] 33.3 g/dL Normal 31.5-35.7 [facility] pre[facility]ive [facility]; [facility] Work Phone: Comment on above: A courtesy copy of t his report has been sent to [phone] WAS FASTINGPERFORMED BY: [place] [employer]Nov[employer] GetYou [facility] [id number] MCV (RBC) [Entitic vol] 86 fL Normal 79-97 [facility]; [facility] Work Phone: Comment on above: A courtesy copy of t his report has been sent to [phone] WAS FASTINGPERFORMED BY: [place] IND [facility] Nzlchr3845 [facility] [id number] Monocytes (Bld) [#/Vol] 0.5 10*3/uL Normal 0.1-0.9 [facility]; [facility] Work Phone: Comment on above: A courtesy copy of t his report has been sent to [phone] WAS FASTINGPERFORMED BY: [facility] [id number] [facility] [id number] Monocytes/100 WBC (Bld) 8 % Normal [facility]; [facility] Work Phone: Comment on above: A courtesy copy of t his report has been sent to [phone] WAS FASTINGPERFORMED BY: IND [facility] Qpkoaj7205 [facility] [id number] Morphology Drake (Bld) [Interp] Note: Normal [facility]; [facility] Work Phone: Comment on above: Verified by microsco pic examination. A courtesy copy of t his report has been sent to [phone] WAS FASTINGPERFORMED BY: [employer] Smwqhl3388 [facility] [id number] Neutrophils (Bld) [#/Vol] 3.8 10*3/uL Normal 1.4-7.0 [facility]; [facility] Work Phone: Comment on above: A courtesy copy of t his report has been sent to [phone] WAS FASTINGPERFORMED BY: [employer] Wlsuec3145 [facility] [id number] Neutrophils/100 WBC (Bld) 64 % Normal [facility]; [facility] Work Phone: Comment on above: A courtesy copy of t his report has been sent to [phone] WAS FASTINGPERFORMED BY: [employer] Fihize3692 [facility] [id number] Platelets (Bld) [#/Vol] 84 10*3/uL Abnormal 150-450 [facility]; [facility] Work Phone: Comment on above: Platelet count verif ied by examination of peripheral blood smear. A courtesy copy of t his report has been sent to [phone] WAS FASTINGPERFORMED BY: [employer] Tlturg0354 [facility] [id number] RBC (Bld) [#/Vol] 4.27 10*6/uL Normal 3.77-5.28 [facility]; [facility] Work Phone: Comment on above: A courtesy copy of t his report has been sent to [phone] WAS FASTINGPERFORMED BY: LabNov[employer] [id number] [facility] [id number] WBC (Bld) [#/Vol] 6.0 10*3/uL Normal 3.4-10.8 Compre [facility]; [facility] Work Phone: Comment on above: Verified by repeat analysis A courtesy copy of t his report has been sent to [phone] WAS FASTINGPERFORMED BY: [place] [facility] Yutdpd7000 [address] RoadDublin [place] [id number] METABOLIC PANEL, COMPREHENSI VE ([id number])Ordered By: Shop Manager on 08-02-2023 Albumin [Mass/Vol] 4.5 g/dL Normal 3.8-4.9 [facility]; [facility] Work Phone: Comment on above: A courtesy copy of t his report has been sent to [phone] WAS FASTINGPERFORMED BY: [place] [facility] [id number]Dublin [place] [id number] Albumin/Globulin [Mass ratio] 2.1 {ratio} Normal 1.2-2.2 [facility]; [facility] Work Phone: Comment on above: A courtesy copy of t his report has been sent to [phone] WAS FASTINGPERFORMED BY: [place] [facility] [id number] [address] RoadDublin [place] [id number] ALP [Catalytic activity/Vol] 44 U/L Normal 44-121 [facility]; [facility] Work Phone: Comment on above: A courtesy copy of t his report has been sent to [phone] WAS FASTINGPERFORMED BY: [place] [facility] [id number] [address] RoadDublin [place] [id number] ALT [Catalytic activity/Vol] 29 U/L Normal 0-32 [facility]; [facility] Work Phone: Comment on above: A courtesy copy of t his report has been sent to [phone] WAS FASTINGPERFORMED BY: [facility] [id number]Dublin [place] [id number] AST [Catalytic activity/Vol] 18 U/L Normal 0-40 [facility]; [facility] Work Phone: Comment on above: A courtesy copy of t his report has been sent to [phone] WAS FASTINGPERFORMED BY: [facility] [id number]Dublin [place] [id number] Bilirubin [Mass/Vol] 0.3 mg/dL Normal 0.0-1.2 [facility]; [facility] Work Phone: Comment on above: A courtesy copy of t his report has been sent to [phone] WAS FASTINGPERFORMED BY: [place] [employer] [id number] [facility] [id number] Calcium [Mass/Vol] 9.1 mg/dL Normal 8.7-10.2 [facility]; [facility] Work Phone: Comment on above: A courtesy copy of t his report has been sent to [phone] WAS FASTINGPERFORMED BY: [place] [employer]70 [facility] [id number] Chloride [Moles/Vol] 101 mmol/L Normal 96-106 [facility]; [facility] Work Phone: Comment on above: A courtesy copy of t his report has been sent to [phone] WAS FASTINGPERFORMED BY: [place] Adviesmanager.[email or web address] [facility] [id number] CO2 [Moles/Vol] 29 mmol/L Normal 20-29 Comprehen [facility]; [facility] Work Phone: Comment on above: A courtesy copy of t his report has been sent to [phone] WAS FASTINGPERFORMED BY: [place] Adviesmanager.nl6370 [facility] [id number] Creatinine [Mass/Vol] 0.96 mg/dL Normal 0.57-1.00 [facility]; [facility] Work Phone: Comment on above: A courtesy copy of t his report has been sent to [phone] WAS FASTINGPERFORMED BY: [place] Adviesmanager.nl6370 [facility] [id number] GFR/1.73 sq M.predicted among non-blacks MDRD (S/P/Bld) [Vol rate/Area] 69 mL/min/{1.73_m2} Normal Comprehensiv e [facility]; [facility] Work Phone: Comment on above: A courtesy copy of t his report has been sent to [phone] WAS FASTINGPERFORMED BY: [place] IND Lifetechjorge SumnerAjnobp9099 [facility] [id number] Globulin (S) [Mass/Vol] 2.1 g/dL Normal 1.5-4.5 [facility]; [facility] Work Phone: Comment on above: A courtesy copy of t his report has been sent to [phone] WAS FASTINGPERFORMED BY: [place] IND Lifetechslava Zervpu[address] Carrier MobileAtrium Health [facility] Baptist [id number] Glucose [Mass/Vol] 109 mg/dL Abnormal 70-99 [facility]; [facility] Work Phone: Comment on above: A courtesy copy of t his report has been sent to [phone] WAS FASTINGPERFORMED BY: [place] Sumnerlin6370 [facility] [id number] Potassium [Moles/Vol] 3.8 mmol/L Normal 3.5-5.2 [facility] prehensive Internal Medicine; [facility] Work Phone: Comment on above: A courtesy copy of t his report has been sent to [phone] WAS FASTINGPERFORMED BY: [place] Sumnerlin[address] [employer] [id number] Protein [Mass/Vol] 6.6 g/dL Normal 6.0-8.5 [facility]; [facility] Work Phone: Comment on above: A courtesy copy of t his report has been sent to [phone] WAS FASTINGPERFORMED BY: [place] [employer] [id number] Carrier MobileAtrium Health [facility] [id number] Sodium [Moles/Vol] 143 mmol/L Normal 134-144 [facility]; [facility] Work Phone: Comment on above: A courtesy copy of t his report has been sent to [phone] WAS FASTINGPERFORMED BY: YaSabe6370 [email or web address] Health Johnston [id number] Urea nitrogen [Mass/Vol] 14 mg/dL Normal 6-24 [facility]; [facility] Work Phone: Comment on above: A courtesy copy of t his report has been sent to [phone] WAS FASTINGPERFORMED BY: YaSabe6370 [email or web address] Health Johnston [id number] Urea nitrogen/Creatinine [Mass ratio] 15 mg/mg Normal 9-23 [facility]; [facility] Work Phone: Comment on above: A courtesy copy of t his report has been sent to [phone] WAS FASTINGPERFORMED BY: [email or web address] Health Johnston [id number] Urinalysis, Office ([id number])Or dered By: Jennifer Lombardi on 05-05-2023 Bilirubin Ql (U) Negative Normal Comprehe nsive Internal Medicine; [facility] Work Phone: Glucose Test strip (U) [Mass/Vol] Negative Normal [facility]; [facility] Work Phone: Hemoglobin Ql (U) Negative Normal Compreh ensive [facility]; [facility] Work Phone: Ketones Ql (U) Negative Normal Comprehens loretta [facility]; [facility] Work Phone: Leukocyte esterase Test strip Ql (U) Negative Normal [facility]; [facility] Work Phone: Nitrite Ql (U) Negative Normal Comprehens [facility]; [facility] Work Phone: pH (U) 6.0 [pH] Normal [facility]; [facility] Work Phone: Protein Ql (U) Negative Normal Comprehens [facility]; [facility] Work Phone: Specific gravity (U) [Rel density] 1.010 1 Normal [facility]; [facility] Work Phone: Urobilinogen (24H U) [Mass/Time] Normal Normal [facility]; [facility] Work Phone: URINALYSIS ([id number])Ordered By : Shop Manager on 04-19-2023 Appearance (U) Clear Normal Comprehens [facility]; [facility] Work Phone: Comment on above: PERFORMED BY: WomenCentric70 [address] RoadCybronicsblin [place] [id number] Bilirubin Ql (U) Negative Normal Comprehe nsive Internal Medicine; [facility] Work Phone: Comment on above: PERFORMED BY: [employer] [address] [employer] [id number] Color (U) Yellow Normal [facility]; [facility] Work Phone: Comment on above: PERFORMED BY: Open Range Communicationsblin [place] [id number] Glucose Ql (U) Negative Normal Comprehens [facility]ta [facility]; [facility] Work Phone: Comment on above: PERFORMED BY: Blendagram[address] [employer] [id number] Hemoglobin Ql (U) Negative Normal Compreh ensive Internal Medicine; [facility] Work Phone: Comment on above: PERFORMED BY: Open Range Communicationsblin [place] [id number] Ketones Ql (U) Negative Normal Comprehens [facility]; [facility] Work Phone: Comment on above: PERFORMED BY: Open Range Communicationsin [place] [id number] Leukocyte esterase Test strip Ql (U) 2+ Abnormal [facility]; [facility] Work Phone: Comment on above: PERFORMED BY: Open Range Communicationsblin [place] [id number] Microscopic observation LM Nom (Urine sed) See below: Normal [facility]; [facility] Work Phone: Comment on above: Microscopic was gus cated and was performed. PERFORMED BY: Open Range Communicationsblin [place] [id number] Nitrite Ql (U) Negative Normal Comprehens [facility]; [facility] Work Phone: Comment on above: PERFORMED BY: Blendagram6370 [employer] [place] [id number] pH (U) 7.5 [pH] Normal 5.0-7.5 [facility]; [facility] Work Phone: Comment on above: PERFORMED BY: [facility]currentAdventHealth [facility] [id number] Protein Ql (U) Negative Normal Comprehens l[facility]ta [facility]; [facility] Work Phone: Comment on above: PERFORMED BY: [employer] [place] [id number] Specific gravity (U) [Rel density] 1.008 1 Normal 1.005-1.030 [facility]; [facility] Work Phone: Comment on above: PERFORMED BY: Open Range CommunicationsUNC Health Johnston [id number] Urobilinogen (U) [Mass/Vol] 0.2 mg/dL Normal 0.2-1.0 [facility]; [facility] Work Phone: Comment on above: PERFORMED BY: Open Range CommunicationsUNC Health Johnston [id number] HgA1C , Office ([id number])Ordere d By: Esperanza Moreno on 01-31-2023 HbA1c (Bld) [Mass fraction] 5.6 % Normal 4.6 - 7.1 [facility]; [facility] Work Phone: Basophil percentageOrdered B y: Dr. Curry on 12-06-2022 Chloride [Moles/Vol] 103 mmol/L 98-107 [facility] Glucose [Mass/Vol] 106 mg/dL 74-106 [facility] Comment on above: Fasting Glucose resu lt from 100 to 125 mg/dL suggests IMPAIRED HOMEOSTASIS per A.D.A. criteria. Potassium [Moles/Vol] 3.7 mmol/L 3.5-5.1 [facility] Sodium [Moles/Vol] 140 mmol/L 136-145 [facility] Laboratory - Chemistry and C hemistry - challengeOrdered By: Dr. Curry on 12-06-2022 CO2 [Moles/Vol] 30.0 mmol/L 21.0-32.0 [facility] Magnesium [Mass/Vol] 2.1 mg/dL 1.6-2.6 [facility] Urea nitrogen/Creatinine [Mass ratio] 22.0 mg/mg 10-20 [facility] Laboratory - Chemistry and C hemistry - challengeOrdered By: Dr. Gleason on 12-06-2022 T4 [Mass/Vol] 14.2 ug/dL 4.8-13.9 [facility] No Panel InformationOrdered By: Dr. Curry on 12-06-2022 Estimated GFR (MDRD) Amer 82 mL/min >60 [facility] Comment on above: GFR Calc Estimated GFR (MDRD) Non-Af Amer 68 mL/min >60 [facility] Comment on above: Non- GFR Calc No Panel InformationOrdered By: Dr. Gleason on 12-06-2022 Free Triiodothyronine (T3) pg/dL 2.7 pg/mL 2.18-3.98 [facility] Thyroid Stimulating Hormone (TSH) 3.40 uIU/mL 0.358-3.74 [facility] Serum or plasma calcium osmel urement (mass/volume)Ordered By: Dr. Curry on 12-06-2022 Calcium [Mass/Vol] 9.1 mg/dL 8.5-10.1 [facility] Serum or plasma creatinine m easurement (mass/volume)Ordered By: Dr. Curry on 12-06-2022 Creatinine [Mass/Vol] 0.91 mg/dL 0.55-1.02 [facility] Comment on above: The validity of the calculated GFR & GFRAA in patients over 70 years has not been determined. Clinical correlation is essential. Serum or plasma urea nitroge n measurement (mass/volume)Ordered By: Dr. Curry on 12-06-2022 Urea nitrogen [Mass/Vol] 20 mg/dL 7-18 [facility] Thin prep Papanicolaou smear with manual screeningOrdered By: Dr. Curry on 12-06-2022 Thin prep Papanicolaou smear with manual screening 7 5-15 [facility] Basophil percentageon 2021 Basophil percentage 0-5 SEEN /hpf 0-5 [facility] Work Phone: Bilirubin Test strip Ql (U)o n 06-03-2022 Bilirubin Ql (U) Negative Negative [facility] Work Phone: Ketones Test strip Ql (U)on 06-03-2022 Ketones Ql (U) Negative Negative [facility] Work Phone: Mucus LM Ql (Urine sed)on Mucus Ql (Urine sed) 0 SEEN /hpf [facility] Work Phone: Nitrite Test strip Ql (U)on 06-03-2022 Nitrite Ql (U) Negative Negative [facility] Work Phone: Protein Test strip Ql (U)on 06-03-2022 Protein Ql (U) Negative Negative [facility] Work Phone: Squamous epithelial cells de tection in urine sediment by light microscopyon 06-03-2022 Epithelial cells.squamous LM Ql (Urine sed) 0-5 SEEN /hpf 5-10 [facility] Work Phone: Urine blood detectionon 05-24 RBC Ql (U) Negative Negative [facility] Work Phone: RBC Ql (U) 0 SEEN /hpf 0-5 [facility] Work Phone: Urine clarityon 06-03-2022 Clarity (U) Clear Clear [facility] Work Phone: Urine color determinationon 06-03-2022 Color (U) Straw Yellow [facility] Work Phone: Urine glucose detectionon Glucose Ql (U) Normal mg/dl Normal [facility] Work Phone: Urine leukocyte esterase det ection by dipstickon 06-03-2022 Leukocyte esterase Test strip Ql (U) 25 /ul Negative [facility] Work Phone: Urine pHon 06-03-2022 pH (U) 6.5 [pH] 5.0 - 8.0 [facility] Work Phone: Urine sediment bacteria coun t by microscopy (number/high power field)on 06-03-2022 Bacteria LM.HPF (Urine sed) [#/Area] RARE /hpf None Seen [facility] Work Phone: Urine specific gravity measu rementon 06-03-2022 Specific gravity (U) [Rel density] 1.010 1.002-1.030 [facility] Work Phone: Urobilinogen Auto test strip Ql (U)on 06-03-2022 Urobilinogen Ql (U) Normal mg/dl Normal [facility] Work Phone: Cervical or vagninal specime n microscopic examination by cytology stain (reported ason 05-18-2022 Cytology report Cyto stain Doc (Cvx/Vag) Comment . [facility] Work Phone: Comment on above: The Pap smear is a s creening test designed to aid in thedetection of premalignant and malignant conditions of theuterine cervix. It is not a diagnostic procedure andshould not be used as the sole means of detecting cervicalcancer. Both false-positive and false-negative reports dooccur. Detection in cervical specim en of any of human papilloma virus (HPV) 16, 18, 31, 33,on 05-18-2022 HPV 16+18+31+33+35+39+45+5 1+52+56+58+59+66+68 DNA Probe+sig amp Ql (Cvx) Negative Negative [facility] Work Phone: Comment on above: This nucleic acid am plification test detects fourteen high- risk HPV types (16,18,31,33,35,39,45,51,52,56,58,59,66,68)without differentiation.Performed at: [address] [id number] Director: Raeann Ferguson MD, Phone: [phone] at: =[address] [id number] Director: Raeann Ferguson MD, Phone: [phone] Laboratory - Chemistry and C hemistry - challengeon 05-18-2022 Glucose Ql (U) Negative [facility] Work Phone: Ketones Ql (U) Negative [facility] Work Phone: Specific gravity (U) [Rel density] 1.015 [facility] Work Phone: Laboratory - Cytologyon 04-24 Knife Blade Polisher Cyto stain Nom (Cvx/Vag) [ID] Comment . [facility] Work Phone: Comment on above: Abran Melchor totechnologist (ASCP) Laboratory - Hematology and Cell countson 05-18-2022 Hemoglobin Ql (U) Small [facility] Work Phone: Laboratory - Miscellaneous t estson 05-18-2022 Service comment (Unsp spec) [Interp] Comment . [facility] Work Phone: Comment on above: This liquid based Th inPrep(R) pap test was screened withthe use of an image guided system. Service comment (Unsp spec) [Interp] . . [facility] Work Phone: Laboratory - Specimen inform ationon 05-18-2022 Clarity (U) Cloudy [facility] Work Phone: Color (U) STRAW [facility] Work Phone: Laboratory - Urinalysison Nitrite Ql (U) Positive [facility] Work Phone: Protein Ql (U) Negative [facility] Work Phone: No Panel Informationon 05-18 Pathology report final diagnosis Narrative Comment . [facility] Work Phone: Comment on above: NEGATIVE FOR INTRAEP ITHELIAL LESION OR MALIGNANCY. Urine Leukocytes Positive [facility] Work Phone: Basophil percentageon 2021 Basophil percentage 0 SEEN /hpf 0-5 [facility] Work Phone: Bilirubin [Mass/Vol] 0.40 mg/dL 0.20-1.00 [facility] Work Phone: Comment on above: For patients on eltr ombopag therapy, use of Dimension [place] TBIL is not recommended. Chloride [Moles/Vol] 103 mmol/L 98-107 [facility] Work Phone: Glucose [Mass/Vol] 91 mg/dL 74-106 [facility] Work Phone: Potassium [Moles/Vol] 3.7 mmol/L 3.5-5.1 [facility] Work Phone: Protein [Mass/Vol] 7.8 g/dL 6.4-8.2 [facility] Work Phone: Sodium [Moles/Vol] 141 mmol/L 136-145 [facility] Work Phone: Bilirubin Test strip Ql (U)o n 05-07-2022 Bilirubin Ql (U) Negative Negative [facility] Work Phone: Ketones Test strip Ql (U)on 05-07-2022 Ketones Ql (U) Negative Negative [facility] Work Phone: Laboratory - Chemistry and C hemistry - challengeon 05-07-2022 ALP [Catalytic activity/Vol] 43 U/L 45-117 [facility] Work Phone: ALT [Catalytic activity/Vol] 25 U/L 13-56 [facility] Work Phone: CO2 [Moles/Vol] 32.0 mmol/L 21.0-32.0 [facility] Work Phone: Globulin (S) [Mass/Vol] 3.6 g/dL 2.2-4.2 [facility] Work Phone: Urea nitrogen/Creatinine [Mass ratio] 15.3 mg/mg 10-20 [facility] Work Phone: Mucus LM Ql (Urine sed)on Mucus Ql (Urine sed) 0 SEEN /hpf [facility] Work Phone: Nitrite Test strip Ql (U)on 05-07-2022 Nitrite Ql (U) Negative Negative [facility] Work Phone: No Panel Informationon 05-07 Estimated GFR (MDRD) Amer 82 mL/min >60 [facility] Work Phone: Comment on above: GFR Calc Estimated GFR (MDRD) Non-Af Amer 68 mL/min >60 [facility] Work Phone: Comment on above: Non- GFR Calc Protein Test strip Ql (U)on 05-07-2022 Protein Ql (U) Negative Negative [facility] Work Phone: Serum or plasma albumin osmel urement (mass/volume)on 05-07-2022 Albumin [Mass/Vol] 4.2 g/dL 3.2-5.0 [facility] Work Phone: Serum or plasma albumin/glob ulin mass ratioon 05-07-2022 Albumin/Globulin [Mass ratio] 1.2 {ratio} 0.9-2.4 [facility] Work Phone: Serum or plasma calcium osmel urement (mass/volume)on 05-07-2022 Calcium [Mass/Vol] 9.2 mg/dL 8.5-10.1 [facility] Work Phone: Serum or plasma creatinine m easurement (mass/volume)on 05-07-2022 Creatinine [Mass/Vol] 0.92 mg/dL 0.55-1.02 [facility] Work Phone: Comment on above: The validity of the calculated GFR & GFRAA in patients over 70 years has not been determined. Clinical correlation is essential. Serum or plasma urea nitroge n measurement (mass/volume)on 05-07-2022 Urea nitrogen [Mass/Vol] 14 mg/dL 7-18 [facility] Work Phone: Squamous epithelial cells de tection in urine sediment by light microscopyon 05-07-2022 Epithelial cells.squamous LM Ql (Urine sed) 0-5 SEEN /hpf 5-10 [facility] Work Phone: Thin prep Papanicolaou smear with manual screeningon 05-07-2022 Thin prep Papanicolaou smear with manual screening 13 U/L 15-37 [facility] Work Phone: Thin prep Papanicolaou smear with manual screening 6 5-15 [facility] Work Phone: Urine blood detectionon 04-23 RBC Ql (U) Negative Negative [facility] Work Phone: RBC Ql (U) 0 SEEN /hpf 0-5 [facility] Work Phone: Urine clarityon 05-07-2022 Clarity (U) Sl. Cloudy Clear [facility] Work Phone: Urine color determinationon 05-07-2022 Color (U) Yellow Yellow [facility] Work Phone: Urine glucose detectionon Glucose Ql (U) Normal mg/dl Normal [facility] Work Phone: Urine leukocyte esterase det ection by dipstickon 05-07-2022 Leukocyte esterase Test strip Ql (U) 25 /ul Negative [facility] Work Phone: Urine pHon 05-07-2022 pH (U) 7.0 [pH] 5.0 - 8.0 [facility] Work Phone: Urine sediment bacteria coun t by microscopy (number/high power field)on 05-07-2022 Bacteria LM.HPF (Urine sed) [#/Area] RARE /hpf None Seen [facility] Work Phone: Urine specific gravity measu rementon 05-07-2022 Specific gravity (U) [Rel density] 1.005 1.002-1.030 [facility] Work Phone: Urobilinogen Auto test strip Ql (U)on 05-07-2022 Urobilinogen Ql (U) Normal mg/dl Normal [facility] Work Phone: Absolute lymphocyte counton 05-04-2022 Lymphocytes Auto (Unsp spec) [#/Vol] 1.63 10*3/uL 0.83-4.51 [facility] Work Phone: Basophil percentageon 2021 Basophils/100 WBC (Bld) 0.1 % 0-1 [facility] Work Phone: Eosinophils/100 WBC (Bld) 2.0 % 0-5 [facility] Work Phone: Neutrophils (Bld) [#/Vol] 4.7 10*3/uL 2.0-7.7 [facility] Work Phone: Neutrophils/100 WBC (Bld) 67.7 % 47-70 [facility] Work Phone: WBC (Bld) [#/Vol] 7.0 10*3/uL 4.4-11.0 [facility] Work Phone: Blood erythrocytes count (nu mber/volume)on 05-04-2022 RBC (Bld) [#/Vol] 4.33 10*6/uL 4.2-5.4 [facility] Work Phone: Blood hemoglobin measurement (mass/volume)on 05-04-2022 Hemoglobin (Bld) [Mass/Vol] 12.3 g/dL 12.0-15.0 [facility] Work Phone: Blood lymphocytes/100 leukoc yteson 05-04-2022 Lymphocytes/100 WBC (Bld) 23.4 % 19-41 [facility] Work Phone: Blood monocytes/100 leukocyt eson 05-04-2022 Monocytes/100 WBC (Bld) 6.2 % 0-10 [facility] Work Phone: Blood platelet mean volumeon 05-04-2022 Platelet mean volume (Bld) [Entitic vol] 9.0 fL 6.2-12.0 [facility] Work Phone: Determination of erythrocyte mean corpuscular volume (MCV)on 05-04-2022 MCV (RBC) [Entitic vol] 87.1 fL 81-99 [facility] Work Phone: Hematocrit Auto (Bld) [Volum e fraction]on 05-04-2022 Hematocrit (Bld) [Volume fraction] 37.7 % 37-47 [facility] Work Phone: Laboratory - Hematology and Cell countson 05-04-2022 Erythrocyte distribution width (RBC) [Entitic vol] 44.2 fL 35.1-43.9 [facility] Work Phone: Erythrocyte distribution width (RBC) [Ratio] 13.9 % 11.6-14.6 [facility] Work Phone: Immature granulocytes/100 WBC (Bld) 0.600 % 0.0-0.9 [facility] Work Phone: Comment on above: IG% - Immature Granu locytes (promyelocytes, myelocytes and metamyelocytes) > 1% indicates that a LEFT SHIFT is Present. MCH (RBC) [Entitic mass] 28.4 pg 27.0-32.0 [facility] Work Phone: Nucleated RBC/100 WBC (Bld) [Ratio] 0 % 0-5 [facility] Work Phone: MCHC Auto (RBC) [Mass/Vol]on 05-04-2022 MCHC (RBC) [Mass/Vol] 32.6 g/dL 32-36 [facility] Work Phone: Platelets bldon 05-04-2022 Platelets (Bld) [#/Vol] 91 10*3/uL 150-450 [facility] Work Phone: Laboratory - Chemistry and C hemistry - challengeon 04-09-2022 Free T4 [Mass/Vol] 1.11 ng/dL 0.76-1.46 [facility] Work Phone: No Panel Informationon 04-09 Thyroid Stimulating Hormone (TSH) 2.38 uIU/mL 0.358-3.74 [facility] Work Phone: Office Visit (Allergy/Immuno logy)on 11-27-2021 Follow-up visit Diagnoses/Problems Assessed Thrombocytopenia (287.5) (D69.6) 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,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,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) HUGGINS (nonalcoholic steatohepatitis) (571.8) (K75.81) Orders Chronic rhinosinusitis Complement, Total, S; Status:Active; Requested for:[id number]; Complete Blood Count + Differential; Status:Active; Requested for:05Ije8882; Comprehensive Metabolic Panel; Status:Active; Requested for:77Dle3087; Immunoglobulin A Level, Serum; Status:Active; Requested for:10Dtg2607; Immunoglobulin G Level, Serum; Status:Active; Requested for:97Lob0838; Immunoglobulin M Level, Serum; Status:Active; Requested for:18Lmx4776; Kim Binding Lectin; Status:Active; Requested for:36Fwg2364; Platelet Antibodies Test; Status:Active; Requested for:90Ewe7287; Respiratory Allergy Profile Region 5, IC; Status:Active; Requested for:35Mem0440; Strep Pneumococcal IgG Ab, 23 Serotypes; Status:Active; Requested for:09Sqh3485; Patient Discussion/Summary I reviewed the patient's history of vaccination. Other than having a sore arm she does not report any history of allergic reactions to vaccines. She has used PEG products in the past and not had any allergic reaction which is a theoretical risk with the mRNA vaccines available for COVID-19. I reviewed the CDC guidelines and recommend the patient consider having the vaccine. She is thinking about having the Pfizer vaccine and will plan to schedule. 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 She is wondering if there is a unifying cause. She is also concerned that she might have some general allergies. We discussed obtaining blood work for this with a follow-up in about 3 weeks to review the labs. Patient is agreeable with the plan. This visit was completed via telehealth due to restrictions of the COVID-19 pandemic. All issues discussed and addressed but no physical exam was performed. If it was felt that the patient should be evaluated in the clinic, they were directed there. The patient/guardian consented to the visit. Spent 30 minutes with the patient discussing the health concerns. Provider Impressions 56-year-old woman with concern for immune problem leading to multiple symptoms and worried that this might contribute to a side effect to the Covid vaccine. Chief Complaint An interactive audio and video telecommunication system which permits real time communications between the patient (at the originating site) and provider (at the distant site) was utilized to provide this telehealth service. Verbal consent was requested and obtained from BRISSA LATIA on this date, 11/27/2021 09:20 AM , for a telehealth visit. Npv referred for concern for immune issue. History of Present IllnessJo is a 56 yo who reports a past medical history significant for thyroid disease Huggins, low platelets and high eosinophils. Patient has 2 concerns today. She has not yet received the COVID-19 vaccination. She would like to get the vaccine. She is worried that her medical history would contraindicate this. The patient has not had a history of any vaccine reactions. She denies any history of reactions to vaccine ingredients. Patient is also concerned that she has an immune problem. She is wondering if there is a connection between her thyroid disease and low platelets. She has seen a analytical lab analyst in the past who has an evaluation and told her that careful monitoring is okay. She reports that she does not feel sick and she is not having recurrent infections. She does have some fatigue. She reports some chronic sinus symptoms. She has seen Dr. Ta Lutz in ENT. She has a history of a septoplasty and turbinate reduction. She also reports a history of negative allergy skin tests. She has been diagnosed with nonallergic rhinitis. Patient also has a history of sleep apnea. She uses CPAP. She is scheduled to see a upholstery department supervisor for management of this in the near future Current medications include Zegerid, hydrochlorothiazide, ursodiol, and vitamin E. Patient has provided some recent labs. These are reviewed and scanned to chart. Her recent thyroid-stimulating hormone was high at 5.6, her CRP was elevated at 16.2 on September 29, 2021 and her platelets were 97,000 in October. Review of Systems Constitutional: no fever, no chills and not feeling tired. Eyes: eyes not red and no itching of the eyes. ENT: nasal discharge, but no hearing loss, no nosebleeds, no sore throat, no hoarseness and as noted in HPI. Cardiovascular: no chest pain and no palpitations. Respiratory: lindsay, but no shortness of breath, no wheezing, no cough, no shortness of breath during exertion and as noted in HPI. Gastrointestinal: no abdominal pain, no constipation, no heartburn, no diarrhea and no vomiting. Integumentary: no dry skin. Psychiatric: no anxiety and no depression. All other systems have been reviewed and are negative for complaint. Vitals reports afebrile Physi (more content not included)... Normal Touchworks Blood polychromasia detectio n by light microscopyon 10-28-2021 Polychromasia LM Ql (Bld) 1+ [facility] HIV 1 and HIV-2 antibody ass ay with HIV-1 p24 antigen detectionon 10-28-2021 HIV 1+2 Ab+HIV1 p24 Ag IA Ql Non-Reactive Nonreactive [facility] No Panel Informationon 10-28 Hepatitis B Core IgM Antibody Negative Negative [facility] Hepatitis Be Antibody Negative Negative [facility] Hepatitis Be Antigen Negative Negative [facility] Hepatitis Interpretation Not Reportable [facility] Serum hepatitis B virus core antibody detectionon 10-28-2021 HBV core Ab Ql (S) Negative Negative [facility] Serum hepatitis B virus surf gerald antibody assay (units/volume)on 10-28-2021 HBV surface Ab Qn (S) See comment [facility] Comment on above: TEST RESULT UNITS RE F INTERVAL NON REACTIVE Non Reactive: Inconsistent with immunity, less than 10 mIU/mL Reactive: Consistent with immunity, greater than 9.9 mIU/mLEffective January 04, 2022 Hepatitis B Virus (Profile )will be made non-orderable. IND [facility] offers order code [id number] HBV Screening andDiagnosis.Performed at: [address] [id number] Director: Geovany Starr PhD, Phone: [phone] Serum or plasma hepatitis B virus surface antigen detection by immunoassayon 10-28-2021 HBV surface Ag IA Ql Negative Negative [facility] Thin prep Papanicolaou smear with manual screeningon 10-28-2021 Thin prep Papanicolaou smear with manual screening 1+ [facility] XR Hand - left PA and Latera l and Obliqueon 12-08-2021 IMPRESSION: Nonspecific mild soft tissue prominence in the volar aspect of the proximal index finger underlying the Beekley marker. Asphalt Surface Heater Operator: PSCB Transcribe Date/Time: Sep 30 2021 10:17A Dictated by : MAYCO ROBLERO MD This examination was interpreted and the report reviewed and electronically signed by: MAYCO ROBLERO MD on Sep 30 2021 10:33AM [facility] DIVISION OF RADIOLOGY * * *Final Report* * * DATE OF EXAM: Sep 30 2021 8:07AM MOX [id number] - XR HAND 3V PA/LAT/OBL LT / PROCEDURE REASON: Pain * * * * Physician Interpretation * * * * EXAMINATION: XR HAND 3V PA/LAT/OBL LT PATIENT/TECHNOLOGIST PROVIDED HISTORY: beekly marker over bump on index finger that has been there for a year, no trauma CLINICAL INFORMATION ( PROVIDED BY ORDERING CLINICIAN) : Pain TECHNIQUE: XR HAND 3V PA/LAT/OBL LT Laterality: LEFT Number of different views (projections): 3 M: XB_1 COMPARISON: None RESULT: No acute fracture or dislocation. No focal osseous lesion or periostitis. Joint spaces and carpal alignment are maintained. Beekley marker overlying this nonspecific soft tissue prominence at the volar aspect of the index finger at the level of the mid to distal proximal phalanx. No associated abnormal soft tissue mineralization or reactive changes in the underlying bone. DIVISION OF RADIOLOGY Provider, [facility] - 09/30/2021 * * *Final Report* * * DATE OF EXAM: Sep 30 2021 8:07AM MOX [id number] - XR HAND 3V PA/LAT/OBL LT / PROCEDURE REASON: Pain * * * * Physician Interpretation * * * * EXAMINATION: XR HAND 3V PA/LAT/OBL LT PATIENT/TECHNOLOGIST PROVIDED HISTORY: beekly marker over bump on index finger that has been there for a year, no trauma CLINICAL INFORMATION ( PROVIDED BY ORDERING CLINICIAN) : Pain TECHNIQUE: XR HAND 3V PA/LAT/OBL LT Laterality: LEFT Number of different views (projections): 3 M: XB_1 COMPARISON: None RESULT: No acute fracture or dislocation. No focal osseous lesion or periostitis. Joint spaces and carpal alignment are maintained. Beekley marker overlying this nonspecific soft tissue prominence at the volar aspect of the index finger at the level of the mid to distal proximal phalanx. No associated abnormal soft tissue mineralization or reactive changes in the underlying bone. IMPRESSION IMPRESSION: Nonspecific mild soft tissue prominence in the volar aspect of the proximal index finger underlying the Beekley marker. Asphalt Surface Heater Operator: LENARD Transcribe Date/Time: Sep 30 2021 10:17A Dictated by : MAYCO ROBLERO MD This examination was interpreted and the report reviewed and electronically signed by: MAYCO ROBLERO MD on Sep 30 2021 10:33AM EST [facility] Radiology Study observation (narrative) [facility] XR Hand - left PA and Latera l and ObliqueOrdered By: Ccf Provider on 09-30-2021 [facility] ALLIED HEALTHon 04-15-2020 ALLIED HEALTH HNO ID: [id number] Author: VIRGINIA Astorga (Ct) Service: ? Author Type: Clinical Cissp Type: Allied Health Filed: 04/15/2020 1:16 PM Note Text: Radiology Service Progress Note PATIENT NAME: Brissa Jeffery DATE OF SERVICE: April 15, 2020 TIME: 1:15 PM PATIENT IDENTITY VERIFICATION COMPLETED USING TWO (2) IDENTIFIERS: Name and Date of confirmed by patient verbally. FALL SCREENING: Has the patient had 2 falls in the last year or 1 fall with injury or currently using an Ambulatory Assistive Device (Walker, Cane, Wheelchair, Crutches, etc.)? No PATIENT GENDER DATA: Female. status: : No status: NO. PATIENT RELEVANT IMPLANT DATA REVIEWED: Not Applicable RADIOLOGY DEPARTMENT: Ultrasound PERIPHERAL IV DATA: Not applicable SIGNED BY: VIRGINIA Astorga April 15, 2020 1:15 PM [facility] US THYROID/PARATHYROIDon US THYROID/PARATHYROID * * *Final Report * * * DATE OF EXAM: Apr 15 2020 1:12PM MOMO [id number] - US THYROID/PARATHYROID / PROCEDURE REASON: E04.2-Multiple thyroid nodules * * * * Physician Interpretation * * * * EXAMINATION: THYROID ULTRASOUND CLINICAL HISTORY: Multiple thyroid nodules TECHNIQUE: Sonography and Doppler imaging of the thyroid was performed. Images were obtained and stored in a permanent archive. MQ: UST_1 COMPARISON: 05/14/2019 RESULT: Right Lobe: 5.5 x 2.2 x 2.4 cm; heterogeneous with numerous nodules, expected vascular flow. Left Lobe: 5.1 x 2.6 x 2.6 cm; heterogeneous with numerous nodules, expected vascular flow. Isthmus: 0.4 cm The most suspicious thyroid nodule(s) (up to four) as below: NODULE 1: Location: Right lower pole Size: 1.2 x 1.0 x 1.0 cm Characteristics: Composition: Solid or almost completely solid, 2 points Echogenicity: Hypoechoic, 2 points Shape: Yowqv-aggp-vlyi, 0 points Margin: Smooth, 0 points Echogenic foci (add points for all that apply): None, 0 points Internal vascularity: present Interval growth: Stable TI-RADS Category: TR4 ACR Recommendation: TI-RADS 4 nodule. Follow up imaging in 1, 2, 3 and 5 years is advised. NODULE 2: Location: Right lower pole Size: 1.4 x 0.7 x 1.4 cm Characteristics: Composition: Solid or almost completely solid, 2 points Echogenicity: Isoechoic, 1 point Shape: Eanxh-yyrj-louz, 0 points Margin: Smooth, 0 points Echogenic foci (add points for all that apply): None, 0 points Internal vascularity: present Interval growth: Stable TI-RADS Category: TR3 ACR Recommendation: TI-RADS 3 nodule. No FNA or further imaging is advised. NODULE 3: Location: Left mid Size: 3.1 x 2.2 x 2.3 cm Characteristics: Composition: Solid or almost completely solid, 2 points Echogenicity: Hypoechoic, 2 points Shape: Nsuse-auar-olvy, 0 points Margin: Ill-defined, 0 points Echogenic foci (add points for all that apply): Macrocalcifications, 1 point Internal vascularity: present Interval growth: Stable TI-RADS Category: TR4 ACR Recommendation: TI-RADS 4 nodule. FNA is recommended. NODULE 4: Location: Left lower pole Size: 1.0 x 1.0 x 0.5 cm Characteristics: Composition: Solid or almost completely solid, 2 points Echogenicity: Hypoechoic, 2 points Shape: Flawn-sflw-qjfr, 0 points Margin: Smooth, 0 points Echogenic foci (add points for all that apply): None, 0 points Internal vascularity: absent Interval growth: Stable TI-RADS Category: TR4 ACR Recommendation: TI-RADS 4 nodule. Follow up imaging in 1, 2, 3 and 5 years is advised. IMPRESSION: Thyroid nodule(s) is/are present. Fine needle aspiration is recommended if the ovary performed for one or more nodules as detailed in the synoptic report. TI-RADS Category: TR4 ACR Recommendation: TI-RADS 4 nodule. FNA is recommended. Asphalt Surface Heater Operator: LENARD Transcribe Date/Time: Apr 15 2020 1:35P Dictated by : ELVIN RAMÍREZ MD This examination was interpreted and the report reviewed and electronically signed by: ELVIN RAMÍREZ MD on Apr 15 2020 1:42PM EST [id number] [facility] 2019 [facility] Office Visit (AGGENS 4) BRISSA JEFFERY ([id number]) 1965 F Date Time Provider Department 10/10/19 2:30 PM DESTINY CHERRY4 During your visit today, we recorded the following information about you: Pulse Blood pressure Weight Height 92/minute 128/100 121 kg 1.689 m Destiny Cherry MD 2019 3:24 PM Signed SURGICAL SERVICES HISTORY AND PHYSICAL EXAMINATION SERVICE DATE: 2019 SERVICE TIME: 2:41 PM PRIMARY CARE PHYSICIAN: Beatris Cerda DO SUBJECTIVE CHIEF COMPLAINT: GERD and nausea HISTORY OF PRESENT ILLNESS: Ms. Jeffery is a 54 year old female with a PMH of Nava's esophagus (no dysplasia), obesity (BMI 40.09), and thyroid nodules who presents for evaluation of GERD and nausea. She reports having started to experience abdominal bloating approximately 1.5 years ago and then began to also experience nausea within the last year. She underwent MRI for these symptoms and was found to have an ovarian tumor. She then underwent oophorectomy and appendectomy on 05/2019. She continued with abdominal bloating and nausea after this procedure. EGD was performed on 07/12/2019 with 60 Fr Chavarria dilation and was also noted to have Nava's esophagus (no dysplasia). Previous EGD in 2012 had demonstrated gastritis for which she was told to take Tums. She was started on pantoprazole 40 mg daily after the 07/12/19 EGD. This did not help alleviate the nausea and she felt it increased her abdominal pain. She was also started on 1 gram Carafate at HS; then increased to BID (lunch and HS) and this did seem to help her symptoms somewhat. She was then transitioned to BID Omeprazole. However, with no resolution of pain or nausea, she transitioned to Pepcid OTC BID. Currently with use of BID Pepcid and Carafate her symptoms have improved somewhat. She recently saw functional medicine and was started on a protocol/diet/suppleme nts after being diagnosed with small intestinal bacterial overgrowth (SIBO). She has yet to start on this protocol - she is planning to do so after the Holidays. Today she endorses less symptoms on pepcid (less constipation, bloating, reflux) compared to pantoprazole. She is also eating smaller meals, which she feels is also contributing to improvement in her symptoms. Gastroparesis Cardinal Symptom Index 1. nausea 1 2. retching 0 3. vomiting 0 4. stomach fullness 2 5. not able to finish a normal-sized meal 1 6. feeling excessively full after meals 1 7. loss of appetite 3 8. bloating (feeling like you need to loosen your clothes) 3 9. 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 Lucio - HYSTEROSCOPY, SURG; REMOVE FB 2004 POLYP REMOVAL - LAPARASCOPIC SUPRACERVICAL HYSTERECTOMY 2007 bleeding - LAPAROSCOPIC SALPING/OOPHORECTOMY Right 05/24/2019 RSO (appendectomy) - NASAL SURGERY PROCEDURE 2001 second procedure for reducing turbinates - REPAIR OF NASAL SEPTUM 2000 Septoplasty, reduce turbinates - REPAIR UMBILICAL HERNIA 2006 - SINUS SURGERY HX 09/28/2017 FAMILY HISTORY: FAMILY HISTORY Problem Relation Age of Onset - Hypertension Father - Diabetes Maternal Grandmother - Heart Maternal Grandfather - Heart Paternal Grandfather - Cancer Paternal Grandmother dx 40s breast cancer, d. 56 gastric cancer vs mets - Breast Cancer Maternal Aunt 50's - Breast Cancer Maternal Aunt 40's - COPD Mother - Diabetes Mother - Heart Failure Mother - Colon Cancer No Family History SOCIAL HISTORY: Social History Tobacco Use - Smoking status: Former Smoker Packs/day: 0.50 Years: 2.00 Pack years: 1.00 Last attempt to quit: 09/17/1988 Years since quittin.0 - Smokeless tobacco: Never Used - Tobacco comment: few quit in high school, 20 years ago Substance Use Topics - Alcohol use: No Frequency: Never Binge frequency: Never - Drug use: No MEDICATIONS: Current Outpatient Medications Medication Sig - FAMOTIDINE ORAL Take 20 mg by mouth twice daily. - sucralfate (CARAFATE) 1 gram tablet Take 1 g by mouth daily at bedtime. - Glutagenics (Metagenics) Mix one teaspoon (4.33 g) with water three times daily (1 teaspoon = 3.5 grams L-glut) - Digestive Enzymes Ultra 180 ct. (Pure Encapsulations) supports digestion of food 1-2 capsules with meals - One [place] (Pure Encapsulation) -- fish oil Take 2 capsules by mouth daily with food. - Vitamin D [place] ([employer]) Take 1 capsule by mouth daily with food. - Magnesium Citrate 150mg BID Stress, blood sugar, thyroid/hormones/adren als/sleep/energy/toxin s/muscles/constipation /asthma Work up to 2-3 twice a day. - back off if loose stools - thyroid (ARMOUR THYROID) 15 mg tablet Take 1 tablet by mouth once daily. - triamcinolone acetonide (NASACORT NASAL) Use 1 [place] in the nose daily at bedtime. - oxymetazoline HCl (AFRIN NASAL) Use 1 [place] in the nose daily at bedtime. - multivitamin tablet Take 1 tablet by mouth once daily. - pantoprazole sodium (PANTOPRAZOLE ORAL) Take by mouth. No current facility-administered medications for this visit. ALLERGIES: ALLERGIES Allergen Reactions - Bactrim [Sulfametho* Other: See Comments, Unknown [place] strange on it spacey Light-headed COMPLETE REVIEW OF SYSTEMS: Review of Systems Constitutional: Negative for chills, diaphoresis, fever and malaise/fatigue. HENT: Negative for congestion, hearing loss, nosebleeds, sinus pain, sore throat and tinnitus. Eyes: Negative for blurred vision, double vision, pain and redness. Respiratory: Negative for cough, hemoptysis, sputum production, shortness of breath and wheezing. Cardiovascular: Negative for chest pain, palpitations, orthopnea, leg swelling and PND. Gastrointestinal: Positive for heartburn. Negative for abdominal pain, blood in stool, constipation, diarrhea, nausea and vomiting. Genitourinary: Negative for dysuria, frequency, hematuria and urgency. Musculoskeletal: Negative for back pain, falls, joint pain, myalgias and neck pain. Skin: Negative for itching and rash. Neurological: Negative for dizziness, speech change, focal weakness, seizures, loss of consciousness, weakness and headaches. Endo/Heme/Allergies: Does not bruise/bleed easily. Psychiatric/Behavioral : Negative for depression, hallucinations, memory loss, substance abuse and suicidal ideas. The patient is not nervous/anxious and does not have insomnia. OBJECTIVE PHYSICAL EXAM: BP 128/100 Pulse 92 Ht 5' 6.5 (1.69m) Wt 266 lb 12.8 oz (121.0kg) LMP 08/09/2004 BMI 42.42 kg/(m2). Physical Exam Constitutional: She is oriented to person, place, and time and well-developed, well-nourished, and in no distress. HENT: Head: Normocephalic and atraumatic. Mouth/Throat: No oropharyngeal exudate. Eyes: Conjunctivae are normal. No scleral icterus. Cardiovascular: Normal rate and regular rhythm. Pulmonary/Chest: Effort normal. No respiratory distress. Abdominal: She exhibits no distension and no mass. There is no abdominal tenderness. There is no rebound and no guarding. Diastasis recti Neurological: She is alert and oriented to person, place, and time. GCS score is 15. Skin: Skin is warm and dry. No rash noted. No erythema. No pallor. Psychiatric: Mood and affect normal. DATA: Diagnostic tests reviewed for today's visit: I have reviewed the patient's EMR and recent workup Plan ASSESSMENT AND PLAN Brissa Jeffery is a 54 year old female with a PMH as noted above who presents with GERD, Nava's esophagus, and Nausea. 1. Nava's esophagus without dysplasia - ICD9: 530.85, ICD10: K22.70 (primary diagnosis) - Patient will need to follow up with repeat EGD in one year for GE junction biopsies. In the meantime she will continue working on weight loss, diet and lifestyle modifications, and use Pepcid (she understands that PPIs are the preferred medication in the setting of [place], but since Pepcid works better for her she will continue this medication). - EGD 2. Class 3 severe obesity due to excess calories with serious comorbidity and body mass index (BMI) of 40.0 to 44.9 in adult (HCC) - ICD9: 278.01, V85.41, ICD10: E66.01, Z68.41 - Patient is working on weight loss 3. Nausea - ICD9: 787.02, ICD10: R11.0 - Will consider GES if patient's symptoms of nausea and bloating do not resolve with the SIBO protocol/medications/d iet. 4. Diastasis of rectus abdominis - ICD9: 728.84, ICD10: M62.08 - I have provided the patient with exercise instructions I spent 30 minutes in the visit, with more than 50% of the total wmil-ci-gojr time of the visit in counseling / coordination of care. SIGNATURE: Destiny Cherry MD PATIENT NAME: Brissa Jeffery DATE: 2019 TIME: 2:41 PM PAGER/CONTACT #: [phone] Destiny Cherry MD 2019 3:09 PM Signed Diastasis Recti (DR) Diastasis recti is an bon-krp-cbknel problem that affects both women and men. The condition can be caused by internal pressure on the front of your abdomen around your belly button as a result of obesity or , causing the connective tissue in your abdomen to separate or weaken. Certain exercises can often mitigate or correct the problem. Exercises Start by performing these rehab exercises daily. Try reassessing your DR every two to three weeks to gauge your progress. 1. Abdominal Drawing In When getting in and out of bed, lifting or carrying, or getting up from a chair, pull in your stomach as if you were trying to fit into a tight pair of jeans. You should be able to hold this abdominal muscle contraction and breathe normally for 10 seconds. This exercise will safely start to engage and strengthen your abdominal muscles without compromising them. 2. Belly Breathing Lie flat on your back on a mat. Take a deep inhale, allowing your belly and then your chest to fully inflate. Then, slowly and forcefully exhale, drawing your abdominal wall in as if you had a corset on as you do so. 3. Heel Slides With Alternating Arms Lie flat on your back on a mat, with your knees bent and feet flat on the floor. Straighten your arms and raise them directly over your shoulders. Exhale, and slowly extend one leg out in front of you, letting it hover a few inches above the floor, and simultaneously extend the opposite arm back above the head, just off of the floor. Inhale and slowly return to start. Repeat on the opposite side. Work to keep your hips and core stable through the entire movement. 4. Quadruped Abdominal Get on all fours (hands under your shoulders and knees under hips) and pull your shoulders wide and away from your ears to form a flat back. From here, take a slow, deep inhale, allowing your abdominal wall to relax and expand toward the floor. Then exhale, drawing the muscles up and in while maintaining a flat back Referring Provider: BEATRIS CERDA [[id number]] Allergies As of Date: 2019 Noted Allergy Reaction BACTRIM (SULFAMETHOXAZOLE-TRIM ETH*03/21/2018 14 - Other: See Comments 16 - Unknown Comments: [place] strange on it spacey Light-headed Date Reviewed: 2019 Reviewed by: Destiny Cherry - Fully Assessed Reason for Visit: Consult [173] Cmt: GERD and Nausea Primary Visit Diagnosis:Nava's esophagus without dysplasia [K22.70] Other Visit Diagnoses:Class 3 severe obesity due to excess calories with serious comorbidity and body mass index (BMI) of 40.0 to 44.9 in adult (HCC) [E66.01, Z68.41] Nausea [R11.0] Diastasis of rectus abdominis [M62.08] Order(s):EGD [2055534] Order #: [id number] FUTURE Prescriptions as of 2019 Sig: FAMOTIDINE ORAL Take 20 mg by mouth twice danie* SUCRALFATE 1 GRAM TABLET Take 1 g by mouth daily at be* OTC NUTRITIONAL SUPPLEMENT Mix one teaspoon (4.33 g) wit* OTC NUTRITIONAL SUPPLEMENT 1-2 capsules with meals OTC NUTRITIONAL SUPPLEMENT Take 2 capsules by mouth dani* OTC NUTRITIONAL SUPPLEMENT Take 1 capsule by mouth daily* OTC NUTRITIONAL SUPPLEMENT Work up to 2-3 twice a day. * THYROID (PORK) 15 MG TABLET Take 1 tablet by mouth once d* NASACORT NASAL Use 1 [place] in the nose daily* AFRIN NASAL Use 1 [place] in the nose daily* MULTIVITAMIN TABLET Take 1 tablet by mouth once d* PANTOPRAZOLE ORAL Take by mouth. Problem List As Of Date 2019 Noted Resolved ALLERGIC RHINITIS NOS [J30.9] 02/07/2004 Goiter [E04.9] 09/17/2013 LINDSAY (obstructive sleep apnea) [G47.33] 09/17/2013 Obesity [E66.9] Breast swelling [N63.0] 03/19/2015 04/04/2017 More... Inclusion cyst of right breast [L72.0] 03/19/2015 05/27/2018 Abnormal finding on breast imaging [R92.8] 04/04/2017 05/27/2018 More... Encounter for screening colonoscopy [Z12.11] 04/04/2017 Multiple thyroid nodules [E04.2] 05/24/2018 Obesity, Class III, BMI >= 40 [E66.01] 06/01/2018 Vitamin D deficiency [E55.9] 06/13/2018 Bilateral fibrocystic breast changes [N60.11, N*07/24/2018 Family history of breast cancer [Z80.3] 07/24/2018 Excess weight [E66.3] 07/24/2018 Elevated blood pressure reading [R03.0] 10/23/2018 Right lower quadrant pain [R10.31] 01/09/2019 Adnexal mass [N94.89] 01/09/2019 Subclinical hypothyroidism [E03.9] 05/17/2019 Elevated blood pressure reading without diagnos*05/17/2019 Other instructions from your clinician: Diastasis Recti (DR) Diastasis recti is an vzp-dvl-dyawwl problem that affects both women and men. The condition can be caused by internal pressure on the front of your abdomen around your belly button as a result of obesity or , causing the connective tissue in your abdomen to separate or weaken. Certain exercises can often mitigate or correct the problem. Exercises Start by performing these rehab exercises daily. Try reassessing your DR every two to three weeks to gauge your progress. 1. Abdominal Drawing In When getting in and out of bed, lifting or carrying, or getting up from a chair, pull in your stomach as if you were trying to fit into a tight pair of jeans. You should be able to hold this abdominal muscle contraction and breathe normally for 10 seconds. This exercise will safely start to engage and strengthen your abdominal muscles without compromising them. 2. Belly Breathing Lie flat on your back on a mat. Take a deep inhale, allowing your belly and then your chest to fully inflate. Then, slowly and forcefully exhale, drawing your abdominal wall in as if you had a corset on as you do so. 3. Heel Slides With Alternating Arms Lie flat on your back on a mat, with your knees bent and feet flat on the floor. Straighten your arms and raise them directly over your shoulders. Exhale, and slowly extend one leg out in front of you, letting it hover a few inches above the floor, and simultaneously extend the opposite arm back above the head, just off of the floor. Inhale and slowly return to start. Repeat on the opposite side. Work to keep your hips and core stable through the entire movement. 4. Quadruped Abdominal Get on all fours (hands under your shoulders and knees under hips) and pull your shoulders wide and away from your ears to form a flat back. From here, take a slow, deep inhale, allowing your abdominal wall to relax and expand toward the floor. Then exhale, drawing the muscles up and in while maintaining a flat back Disposition: Return in about 1 year (around 2020). Follow-up and Disposition History Recorded Encounter Status:Closed by DESTINY CHERRY MD on 10/10/19 [facility] PROGRESSon 2019 PROGRESS HNO ID: [id number] Author: Destiny Cherry Service: ? Author Type: Physician Type: Progress Notes Filed: 2019 3:24 PM Note Text: SURGICAL SERVICES HISTORY AND PHYSICAL EXAMINATION SERVICE DATE: 2019 SERVICE TIME: 2:41 PM PRIMARY CARE PHYSICIAN: Beatris Cerda DO SUBJECTIVE CHIEF COMPLAINT: GERD and nausea HISTORY OF PRESENT ILLNESS: Ms. Jeffery is a 54 year old female with a PMH of Nava's esophagus (no dysplasia), obesity (BMI 40.09), and thyroid nodules who presents for evaluation of GERD and nausea. She reports having started to experience abdominal bloating approximately 1.5 years ago and then began to also experience nausea within the last year. She underwent MRI for these symptoms and was found to have an ovarian tumor. She then underwent oophorectomy and appendectomy on 05/2019. She continued with abdominal bloating and nausea after this procedure. EGD was performed on 07/12/2019 with 60 Fr Chavarria dilation and was also noted to have Nava's esophagus (no dysplasia). Previous EGD in 2012 had demonstrated gastritis for which she was told to take Tums. She was started on pantoprazole 40 mg daily after the 07/12/19 EGD. This did not help alleviate the nausea and she felt it increased her abdominal pain. She was also started on 1 gram Carafate at HS; then increased to BID (lunch and HS) and this did seem to help her symptoms somewhat. She was then transitioned to BID Omeprazole. However, with no resolution of pain or nausea, she transitioned to Pepcid OTC BID. Currently with use of BID Pepcid and Carafate her symptoms have improved somewhat. She recently saw functional medicine and was started on a protocol/diet/suppleme nts after being diagnosed with small intestinal bacterial overgrowth (SIBO). She has yet to start on this protocol - she is planning to do so after the Holidays. Today she endorses less symptoms on pepcid (less constipation, bloating, reflux) compared to pantoprazole. She is also eating smaller meals, which she feels is also contributing to improvement in her symptoms. Gastroparesis Cardinal Symptom Index 1. nausea 1 2. retching 0 3. vomiting 0 4. stomach fullness 2 5. not able to finish a normal-sized meal 1 6. feeling excessively full after meals 1 7. loss of appetite 3 8. bloating (feeling like you need to loosen your clothes) 3 9. 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 Lucio - HYSTEROSCOPY, SURG; REMOVE FB 2004 POLYP REMOVAL - LAPARASCOPIC SUPRACERVICAL HYSTERECTOMY 2007 bleeding - LAPAROSCOPIC SALPING/OOPHORECTOMY Right 05/24/2019 RSO (appendectomy) - NASAL SURGERY PROCEDURE 2001 second procedure for reducing turbinates - REPAIR OF NASAL SEPTUM 2000 Septoplasty, reduce turbinates - REPAIR UMBILICAL HERNIA 2006 - SINUS SURGERY HX 09/28/2017 FAMILY HISTORY: FAMILY HISTORY Problem Relation Age of Onset - Hypertension Father - Diabetes Maternal Grandmother - Heart Maternal Grandfather - Heart Paternal Grandfather - Cancer Paternal Grandmother dx 40s breast cancer, d. 56 gastric cancer vs mets - Breast Cancer Maternal Aunt 50's - Breast Cancer Maternal Aunt 40's - COPD Mother - Diabetes Mother - Heart Failure Mother - Colon Cancer No Family History SOCIAL HISTORY: Social History Tobacco Use - Smoking status: Former Smoker Packs/day: 0.50 Years: 2.00 Pack years: 1.00 Last attempt to quit: 09/17/1988 Years since quittin.0 - Smokeless tobacco: Never Used - Tobacco comment: few quit in high school, 20 years ago Substance Use Topics - Alcohol use: No Frequency: Never Binge frequency: Never - Drug use: No MEDICATIONS: Current Outpatient Medications Medication Sig - FAMOTIDINE ORAL Take 20 mg by mouth twice daily. - sucralfate (CARAFATE) 1 gram tablet Take 1 g by mouth daily at bedtime. - Glutagenics (Metagenics) Mix one teaspoon (4.33 g) with water three times daily (1 teaspoon = 3.5 grams L-glut) - Digestive Enzymes Ultra 180 ct. (Pure Encapsulations) supports digestion of food 1-2 capsules with meals - One [place] (Pure Encapsulation) -- fish oil Take 2 capsules by mouth daily with food. - Vitamin D [place] ([employer] Take 1 capsule by mouth daily with food. - Magnesium Citrate 150mg BID Stress, blood sugar, thyroid/hormones/adren als/sleep/energy/toxin s/muscles/constipation /asthma Work up to 2-3 twice a day. - back off if loose stools - thyroid (ARMOUR THYROID) 15 mg tablet Take 1 tablet by mouth once daily. - triamcinolone acetonide (NASACORT NASAL) Use 1 [place] in the nose daily at bedtime. - oxymetazoline HCl (AFRIN NASAL) Use 1 [place] in the nose daily at bedtime. - multivitamin tablet Take 1 tablet by mouth once daily. - pantoprazole sodium (PANTOPRAZOLE ORAL) Take by mouth. No current facility-administered medications for this visit. ALLERGIES: ALLERGIES Allergen Reactions - Bactrim [Sulfametho* Other: See Comments, Unknown [place] strange on it spacey Light-headed COMPLETE REVIEW OF SYSTEMS: Review of Systems Constitutional: Negative for chills, diaphoresis, fever and malaise/fatigue. HENT: Negative for congestion, hearing loss, nosebleeds, sinus pain, sore throat and tinnitus. Eyes: Negative for blurred vision, double vision, pain and redness. Respiratory: Negative for cough, hemoptysis, sputum production, shortness of breath and wheezing. Cardiovascular: Negative for chest pain, palpitations, orthopnea, leg swelling and PND. Gastrointestinal: Positive for heartburn. Negative for abdominal pain, blood in stool, constipation, diarrhea, nausea and vomiting. Genitourinary: Negative for dysuria, frequency, hematuria and urgency. Musculoskeletal: Negative for back pain, falls, joint pain, myalgias and neck pain. Skin: Negative for itching and rash. Neurological: Negative for dizziness, speech change, focal weakness, seizures, loss of consciousness, weakness and headaches. Endo/Heme/Allergies: Does not bruise/bleed easily. Psychiatric/Behavioral : Negative for depression, hallucinations, memory loss, substance abuse and suicidal ideas. The patient is not nervous/anxious and does not have insomnia. OBJECTIVE PHYSICAL EXAM: BP 128/100 Pulse 92 Ht 5' 6.5 (1.69m) Wt 266 lb 12.8 oz (121.0kg) LMP 08/09/2004 BMI 42.42 kg/(m2). Physical Exam Constitutional: She is oriented to person, place, and time and well-developed, well-nourished, and in no distress. HENT: Head: Normocephalic and atraumatic. Mouth/Throat: No oropharyngeal exudate. Eyes: Conjunctivae are normal. No scleral icterus. Cardiovascular: Normal rate and regular rhythm. Pulmonary/Chest: Effort normal. No respiratory distress. Abdominal: She exhibits no distension and no mass. There is no abdominal tenderness. There is no rebound and no guarding. Diastasis recti Neurological: She is alert and oriented to person, place, and time. GCS score is 15. Skin: Skin is warm and dry. No rash noted. No erythema. No pallor. Psychiatric: Mood and affect normal. DATA: Diagnostic tests reviewed for today's visit: I have reviewed the patient's EMR and recent workup Plan ASSESSMENT AND PLAN Brissa Jeffery is a 54 year old female with a PMH as noted above who presents with GERD, Nava's esophagus, and Nausea. 1. Nava's esophagus without dysplasia - ICD9: 530.85, ICD10: K22.70 (primary diagnosis) - Patient will need to follow up with repeat EGD in one year for GE junction biopsies. In the meantime she will continue working on weight loss, diet and lifestyle modifications, and use Pepcid (she understands that PPIs are the preferred medication in the setting of [place], but since Pepcid works better for her she will continue this medication). - EGD 2. Class 3 severe obesity due to excess calories with serious comorbidity and body mass index (BMI) of 40.0 to 44.9 in adult (HCC) - ICD9: 278.01, V85.41, ICD10: E66.01, Z68.41 - Patient is working on weight loss 3. Nausea - ICD9: 787.02, ICD10: R11.0 - Will consider GES if patient's symptoms of nausea and bloating do not resolve with the SIBO protocol/medications/d iet. 4. Diastasis of rectus abdominis - ICD9: 728.84, ICD10: M62.08 - I have provided the patient with exercise instructions I spent 30 minutes in the visit, with more than 50% of the total sydx-rc-ewyr time of the visit in counseling / coordination of care. SIGNATURE: Destiny Cherry MD PATIENT NAME: Brissa Jeffery DATE: 2019 TIME: 2:41 PM PAGER/CONTACT #: [phone] [facility] ALLIED HEALTHon 10-03-2019 ALLIED HEALTH HNO ID: [id number] Author: Emy Encarnacion (Tech) Service: Radiology Author Type: Cissp Type: Allied Health Filed: 10/03/2019 7:55 AM Note Text: Radiology Service Progress Note PATIENT NAME: Brissa Jeffery DATE OF SERVICE: October 03, 2019 TIME: 7:30 AM PATIENT IDENTITY VERIFICATION COMPLETED USING TWO (2) IDENTIFIERS: Name and Date of confirmed by patient verbally. PATIENT GENDER DATA: Female. status: : No status: NO. PATIENT RELEVANT IMPLANT DATA REVIEWED: Not Applicable RADIOLOGY DEPARTMENT: Ultrasound PERIPHERAL IV DATA: Not applicable SIGNED BY: Emy Encarnacion October 03, 2019 7:30 AM [facility] US ABD RIGHT UPPER QUADRANTo n 10-03-2019 US ABD RIGHT UPPER QUADRANT * * *Final Report* * * DATE OF EXAM: Oct 03 2019 7:58AM MOMO 1032 - US ABD RIGHT UPPER QUADRANT / PROCEDURE REASON: R10.11-RUQ pain * * * * Physician Interpretation * * * * EXAMINATION: RIGHT UPPER QUADRANT ULTRASOUND HISTORY: RUQ pain TECHNIQUE: Sonography of the right upper quadrant was performed. Images were obtained and stored in a permanent archive. MQ: URUQ_1 COMPARISON: None. RESULT: Pancreas: Pancreas not well seen due to overlying bowel gas. Liver: Echogenicity: Heterogeneous Surface contour: Smooth Lesions: None seen Biliary: No intrahepatic bile duct dilatation CBD: Normal in size at the hilum. Gallbladder: -Gallbladder absent due to previous surgery. Right Kidney: Measures 11.4 cm. There is a 1.3 cm simple cyst in the upper pole Ascites: No ascites is seen IMPRESSION: 1. Fatty liver. No focal masses are seen in the liver. 2. 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 [employer] Operator: LENARD Transcribe Date/Time: Oct 03 2019 8:10A Dictated by : NEYMAR HICKS DO This examination was interpreted and the report reviewed and electronically signed by: NEYMAR HICKS DO on Oct 03 2019 8:11AM EST [id number] [facility] 08-14-2019 [facility] Telephone (MEPRAD) BRISSA JEFFERY ([id number]) 1965 F Date Time Provider Department 08/14/19 RIANA MARINELLI During your visit today, we recorded the following information about you: Riana Marinelli MD 08/14/2019 1:07 PM Signed Milena - yes I would suggest that she f/u with GI for the nausea, I can see her for the pain Summer Sullivan RN 08/14/2019 1:46 PM Signed Spoke with patient and advised of information per MD. Patient verbalized understanding. Patient did say that she followed up with Dr Lucio. They have ordered amylase lipase and kidney functions. She has also started Sucralfate before bedtime and Protonix in the am. No further questions at this time. Advised to call if any future problems or concerns. MD message noted. Encounter closed. Allergies As of Date: 08/14/2019 Noted Allergy Reaction BACTRIM (SULFAMETHOXAZOLE-TRIM ETH*03/21/2018 14 - Other: See Comments 16 - Unknown Comments: [place] strange on it spacey Light-headed Date Reviewed: 07/16/2019 Reviewed by: Beatris Cerda - Fully Assessed Reason for Visit: other [Other] Prescriptions as of 08/14/2019 Sig: X PANTOPRAZOLE 40 MG TABLET,DEL* Take 40 mg by mouth once dani* NASACORT NASAL Use 1 [place] in the nose daily* AFRIN NASAL Use 1 [place] in the nose daily* X FISH OIL-DHA-EPA 1,200 MG-144* Take 1 capsule by mouth once * MULTIVITAMIN TABLET Take 1 tablet by mouth once d* Problem List As Of Date 08/14/2019 Noted Resolved ALLERGIC RHINITIS NOS [J30.9] 02/07/2004 Goiter [E04.9] 09/17/2013 LINDSAY (obstructive sleep apnea) [G47.33] 09/17/2013 Obesity [E66.9] Breast swelling [N63.0] 03/19/2015 04/04/2017 More... Inclusion cyst of right breast [L72.0] 03/19/2015 05/27/2018 Abnormal finding on breast imaging [R92.8] 04/04/2017 05/27/2018 More... Encounter for screening colonoscopy [Z12.11] 04/04/2017 Multiple thyroid nodules [E04.2] 05/24/2018 Obesity, Class III, BMI >= 40 [E66.01] 06/01/2018 Vitamin D deficiency [E55.9] 06/13/2018 Bilateral fibrocystic breast changes [N60.11, N*07/24/2018 Family history of breast cancer [Z80.3] 07/24/2018 Excess weight [E66.3] 07/24/2018 Elevated blood pressure reading [R03.0] 10/23/2018 Right lower quadrant pain [R10.31] 01/09/2019 Adnexal mass [N94.89] 01/09/2019 Subclinical hypothyroidism [E03.9] 05/17/2019 Elevated blood pressure reading without diagnos*05/17/2019 Encounter Status:Closed by RIANA MARINELLI MD on 02/13/20 [facility] ANES Trena 05-24-2019 ANES POST HNO ID: [id number] Author: Geronimo Armenta Service: Anesthesiology Author Type: Anesthesiologist Type: Anesthesia PostOp Filed: 05/24/2019 1:16 PM Note Text: POST ANESTHESIA EVALUATION NOTE SERVICE DATE: 05/24/2019 SERVICE TIME: 1.16 : 1965 Vitals: 05/24/19 0919 05/24/19 1157 05/24/19 1255 Temp: 37.1 ?C (98.8 ?F) 36.9 ?C (98.4 ?F) 36.3 ?C (97.3 ?F) 05/24/19 1230 05/24/19 1245 05/24/19 1255 05/24/19 1300 BP: 137/63 144/64 141/64 139/65 05/24/19 1230 05/24/19 1245 05/24/19 1255 05/24/19 1300 Pulse: 88 85 88 90 05/24/19 1230 05/24/19 1245 05/24/19 1255 05/24/19 1300 Resp: 15 16 16 16 05/24/19 1230 05/24/19 1245 05/24/19 1255 05/24/19 1300 SpO2: 97% 93% 95% 94% Validated Vital Signs: Yes POST ANES STATUS: No apparent anesthetic complications. The patient is appropriately hydrated with stable respiratory and cardiovascular status. Patient has safe and adequate airway control. The patient has appropriate pain relief and no significant post operative nausea or vomiting. The patient has achieved baseline mental status. Intra-Operative Events: No Significant Anesthesia Events Further assessment by Anesthesia Service: None Other Remarks: SIGNATURE: Geronimo Armenta MD PATIENT NAME: Brissa Jeffery DATE: May 24, 2019 TIME: 1:15 PM PAGER/CONTACT #: anesthesia [facility] ANES PREOPon 05-24-2019 ANES PREOP HNO ID: [id number] Author: Geronimo Armenta Service: Anesthesiology Author Type: Anesthesiologist Type: Anesthesia PreOp Filed: 05/24/2019 9:49 AM Note Text: ANESTHESIOLOGY DAY OF SURGERY NOTE SERVICE DATE: 05/24/2019 SERVICE TIME:9.48 : 1965 Procedure(s) (LRB): LAPAROSCOPIC APPENDECTOMY ADULT (N/A) LAPAROSCOPIC OOPHORECTOMY (Right) Surgeon(s): Hany Shen Estimated body mass index is 45.35 kg/m? as calculated from the following: Height as of this encounter: 167.6 cm (5' 6). Weight as of this encounter: 127.5 kg (281 lb). Most recent hematocrit and potassium results: HCT 39.5 05/14/2019 Potassium 3.7 05/14/2019 ANES DOS/PREOP NOTE: Vitals: 05/24/19918 BP: 165/88 Pulse: 103 Resp: 16 Temp: 37.1 ?C (98.8 ?F) SpO2: 94% Weight: 127.5 kg (281 lb) Height: 167.6 cm (5' 6) ACTIVE PROBLEM LIST Allergic Rhinitis, Cause Unspecified Goiter Lindsay (Obstructive Sleep Apnea) Obesity Encounter for Screening Colonoscopy Multiple Thyroid Nodules Obesity, Class III, BMI >= 40 Vitamin D Deficiency Bilateral Fibrocystic Breast Changes Family History of Breast Cancer Excess Weight Elevated Blood Pressure Reading Right Lower Quadrant Pain Adnexal Mass Subclinical Hypothyroidism Elevated Blood Pressure Reading Without Diagnosis of Hypertension PAST MEDICAL HISTORY Diagnosis Date - Allergic rhinitis, cause unspecified - Multiple thyroid nodules 05/2018 - Obesity PAST SURGICAL HISTORY Procedure Laterality Date - CHOLECYSTECTOMY HX 2006 - COLONOSCOPY 2006 AND 11/29/2018 - HYSTEROSCOPY, SURG; REMOVE FB 2004 POLYP REMOVAL - LAPARASCOPIC SUPRACERVICAL HYSTERECTOMY 2006 bleeding - NASAL SURGERY PROCEDURE 2001 second procedure for reducing turbinates - REPAIR OF NASAL SEPTUM 2000 Septoplasty, reduce turbinates - REPAIR UMBILICAL HERNIA 2006 - SINUS SURGERY HX 09/28/2017 FAMILY HISTORY Problem Relation Age of Onset - Hypertension Father - Diabetes Maternal Grandmother - Heart Maternal Grandfather - Heart Paternal Grandfather - Cancer Paternal Grandmother dx 40s breast cancer, d. 56 gastric cancer vs mets - Breast Cancer Maternal Aunt 50's - Breast Cancer Maternal Aunt 40's - COPD Mother - Diabetes Mother - Heart Failure Mother - Colon Cancer No Family History Social History: Social History Tobacco Use - Smoking status: Former Smoker Packs/day: 0.50 Years: 2.00 Pack years: 1.00 Last attempt to quit: 09/17/1988 Years since quittin.7 - Smokeless tobacco: Never Used - Tobacco comment: few quit in high school, 20 years ago Substance Use Topics - Alcohol use: No - Drug use: No No current facility-administered medications on file prior to encounter. Current Outpatient Medications on File Prior to Encounter: triamcinolone acetonide (NASACORT NASAL) Use 1 [place] in the nose daily at bedtime. oxymetazoline HCl (AFRIN NASAL) Use 1 [place] in the nose daily at bedtime. loratadine (CLARITIN) 10 mg tablet Take 10 mg by mouth once daily. pseudoephedrine HCl (SUDAFED ORAL) Take by mouth once daily. cholecalciferol, Vitamin D3, (VITAMIN D3) 50,000 unit cap capsule Take 1 capsule by mouth once each week. celecoxib (CELEBREX) 100 mg capsule Take 1 capsule by mouth twice daily. (Patient not taking: Reported on 05/17/2019 ) evening primrose oil (EVENING PRIMROSE ORAL) Take 1 tablet by mouth as needed. Fish Oil-DHA-EPA 1,200-144-216 mg cap Take 1 capsule by mouth once daily. Benzoyl Peroxide 5 % external wash Wash affected area once daily as tolerated. Use white towel. clindamycin (CLEOCIN-T) 1 % gel Apply to affected areas twice daily as needed. multivitamin tablet Take 1 tablet by mouth once daily. Current Facility-Administered Medications Medication Dose Route Frequency Provider Last Rate Last Dose - lidocaine 10 mg/mL (1 %) 1-2 mg injection (XYLOCAINE) 0.1-0.2 mL INTRADERMAL PRN Becky (Hide Splitter) Argenis - lactated ringers infusion 50 mL/hr INTRAVENOUS CONTINUOUS Becky (Hide Splitter) Argenis 50 mL/hr at 05/24/19 0932 50 mL/hr at 05/24/19 0932 - acetaminophen 1,000 mg tab(s) (TYLENOL) 1,000 mg ORAL Pre-Op Once Geronimo Armenta - promethazine 12.5 mg tab(s) (PHENERGAN) 12.5 mg ORAL Pre-Op Once Geronimo Armenta Allergies: ALLERGIES Allergen Reactions - Bactrim [Sulfametho* Other: See Comments, Unknown [place] strange on it spacey Light-headed DOS EXAM: Adequate NPO status: Yes Anesthetic risks, benefits, alternatives, personnel and consent discussed: Yes Patient agrees to proceed: Yes Previous Anesthesia: No history of adverse event. Airway Assessment: MP 2; Neck ROM: Full ROM without neurologic symptoms; Airway Evaluation: No significant abnormalities Symptoms of Sleep Apnea: None Dentition: Poor dentition Additional Physical Exam: Lungs: Patient health status unchanged since recent history and physical. See history and physical for exam findings. Lungs clear to auscultation. Good diaphragmatic excursion. Cardiac: Patient health status unchanged since recent history and physical. See history and physical for exam findings. normal S1 and S2; no rubs, no murmurs, and no gallops Additional Pertinent Findings: N/A Blood Products: Not anticipated for this procedure. Anesthetic Plan: General, Standard ASA Monitors Pain Management Plan: Parenteral or Oral ASA Class: 2 Other Medical Problems: None Chronic Beta Jasvir medication administered within 24 hours: N/A I have interviewed and examined the patient. I have reviewed the medical record and/or the pre-anesthesia evaluation, pertinent labs, and test results. Significant changes in the patient's condition since the History and Physical, not otherwise documented in primary service progress notes: No This contains updated information obtained within 48 hours of Surgery/Procedure. SIGNATURE: Geronimo Armenta MD PATIENT NAME: Brissa Jeffery DATE: May 24, 2019 TIME: 9:48 AM CSN: [id number] Normal [facility] HISTORY PHYSICALon 9 HISTORY PHYSICAL HNO ID: [id number] Author: Hany Wahl Service: General Surgery Author Type: Physician Type: HANDP Filed: 05/24/2019 10:17 AM Note Text: DEPARTMENT OF HOSPITAL MEDICINE HISTORY AND PHYSICAL EXAM Name: Brissa Jeffery Date of Service: 05/24/2019 Time of Service: 10:14 AM Primary Care Physician: Julian Stein MD [facility] Medicine/Primary Attending: Hany Wahl MD CHIEF COMPLAINT: Chronic RLQ pain, history of ovarian cyst HPI: This is a 53 year old female who presents with complaints of chronic RLQ pain. Extensive workup significant only for right ovarian cyst. Plan is for appendectomy at the time of laparoscopic oophrectomy. PAST MEDICAL HISTORY: PAST MEDICAL HISTORY Diagnosis Date - Allergic rhinitis, cause unspecified - Multiple thyroid nodules 05/2018 - Obesity PAST SURGICAL HISTORY: PAST SURGICAL HISTORY Procedure Laterality Date - CHOLECYSTECTOMY HX 2006 - COLONOSCOPY 2006 AND 11/29/2018 - HYSTEROSCOPY, SURG; REMOVE FB 2004 POLYP REMOVAL - LAPARASCOPIC SUPRACERVICAL HYSTERECTOMY 2007 bleeding - NASAL SURGERY PROCEDURE 2002 second procedure for reducing turbinates - REPAIR OF NASAL SEPTUM 2000 Septoplasty, reduce turbinates - REPAIR UMBILICAL HERNIA 2006 - SINUS SURGERY HX 09/28/2017 FAMILY HISTORY: FAMILY HISTORY Problem Relation Age of Onset - Hypertension Father - Diabetes Maternal Grandmother - Heart Maternal Grandfather - Heart Paternal Grandfather - Cancer Paternal Grandmother dx 40s breast cancer, d. 56 gastric cancer vs mets - Breast Cancer Maternal Aunt 50's - Breast Cancer Maternal Aunt 40's - COPD Mother - Diabetes Mother - Heart Failure Mother - Colon Cancer No Family History SOCIAL HISTORY: Social History Tobacco Use - Smoking status: Former Smoker Packs/day: 0.50 Years: 2.00 Pack years: 1.00 Last attempt to quit: 09/17/1988 Years since quittin.7 - Smokeless tobacco: Never Used - Tobacco comment: few quit in high school, 20 years ago Substance Use Topics - Alcohol use: No - Drug use: No MEDICATIONS: Medications Prior to Admission: triamcinolone acetonide (NASACORT NASAL) Use 1 [place] in the nose daily at bedtime. Disp: Rfl: 05/23/2019 at 1999 oxymetazoline HCl (AFRIN NASAL) Use 1 [place] in the nose daily at bedtime. Disp: Rfl: 05/23/2019 at 1999 loratadine (CLARITIN) 10 mg tablet Take 10 mg by mouth once daily. Disp: Rfl: couple weeks ago pseudoephedrine HCl (SUDAFED ORAL) Take by mouth once daily. Disp: Rfl: couple weeks ago cholecalciferol, Vitamin D3, (VITAMIN D3) 50,000 unit cap capsule Take 1 capsule by mouth once each week. Disp: 12 capsule Rfl: 0 05/18/2019 celecoxib (CELEBREX) 100 mg capsule Take 1 capsule by mouth twice daily. (Patient not taking: Reported on 05/17/2019 ) Disp: 60 capsule Rfl: 1 couple weeks ago evening primrose oil (EVENING PRIMROSE ORAL) Take 1 tablet by mouth as needed. Disp: Rfl: couple months Fish Oil-DHA-EPA 1,200-144-216 mg cap Take 1 capsule by mouth once daily. Disp: Rfl: couple weeks ago Benzoyl Peroxide 5 % external wash Wash affected area once daily as tolerated. Use white towel. Disp: 1 Bottle Rfl: 5 Unknown at Unknown time clindamycin (CLEOCIN-T) 1 % gel Apply to affected areas twice daily as needed. Disp: 60 g Rfl: 5 Unknown at Unknown time multivitamin tablet Take 1 tablet by mouth once daily. Disp: Rfl: 05/22/2019 REVIEW OF SYSTEM: 10 systems reviewed and negative except as noted above. PHYSICAL EXAM: BP 165/88 Pulse 103 Temp 98.8 Resp 16 Ht 5' 6 (1.68m) Wt 281 lb (127.5kg) SpO2 94% LMP 08/09/2004 BMI 45.38 kg/(m2). O2 Therapy: Room Air General: no apparent distress, AO x 3 Skin: no rash or jaundice Eyes: PERRLA, EOMI ENT: Nares patent, oropharynx clear, head normocephalic/atraumat ic CVS: RRR, no M/R/G Lungs: LCTAB, no w/r/r Abd: +BS, protuberant but soft,minimal RLQ tenderness, no organomegaly Neuro: CN 2-12 intact, no focal motor deficits noted Ext: No joint pain/deformity, full ROM UE/LE B/L Psych: Appropriate affect, no acute anxiety DATA: No new labs ASSESSMENT AND PLAN: Chronic RLQ pain, for appendectomy at the time of right oophrectomy. VTE PROPHYLAXIS: Pneumatic Compression Device SIGNATURE: Hany Wahl MD [facility] NURSING PROGon 05-24-2019 NURSING PROG HNO ID: [id number] Author: Jory (Rn) MAHESH Mandujano Service: Nursing Author Type: Registered Nurse Type: Nursing Progress Note Filed: 05/24/2019 9:33 AM Note Text: Nursing Progress Note Patient Name: Brissa Jeffery Patient Location: [place] [facility]/[place] [facility] __ pt ready for OR, call light in antolin, called to bedside. This note was completed by: Jory Mandujano RN [facility] OPERATIVE NOon 05-24-2019 OPERATIVE NO HNO ID: [id number] Author: Hany Wahl Service: General Surgery Author Type: Physician Type: Operative Report Filed: 05/25/2019 6:26 AM Note Text: [facility] - Operative Report BRISSA JFEFERY : 1965 AGE: 53. SEX: F PATIENT TYPE: [place] [facility] [place] [facility]ATION: [facility] ATTENDING PHYSICIAN: Hany Wahl M.D. CSN NUMBER: [id number] DATE OF SURGERY/PROCEDURE: 05/24/2019 INCISION/PROCEDURE START TIME: 10:56 AM INCISION CLOSE/PROCEDURE END TIME: 11:49 AM PREOPERATIVE DIAGNOSIS: Chronic right lower quadrant abdominal pain. POSTOPERATIVE DIAGNOSIS: Chronic right lower quadrant abdominal pain. SURGEON: Hany Wahl M.D. INFORMATION COORDINATOR: Physician Ticket Worker: Adama Flores ([place]) SURGERY/PROCEDURE: Laparoscopic appendectomy in conjunction with Dr. Jessica Shen doing bilateral salpingo-oophorectomy. ANESTHESIA: General INDICATIONS: Patient is a 53-year-old female with a longstanding history of right lower quadrant pain. She has had normal imaging in her pelvis with a complex cystic structures of the adnexal structures. She presents now for assessment of that with treatment as per Dr. Shen as well as incidental appendectomy. DESCRIPTION OF PROCEDURE: After evaluation, the patient was taken to the operating room and placed on the operating table in a supine position. After administration of general endotracheal anesthesia, patient was placed in a low lithotomy position with pressure points well padded. The abdomen was prepped with ChloraPrep, perianal area with Betadine, and draped in a sterile manner. With the umbilicus everted, a curvilinear incision was made in the superior aspect of the umbilicus through the old scar. The Veress needle was introduced and the abdomen was insufflated with carbon dioxide gas. A 12 mm trocar was introduced under direct visualization, confirming intraperitoneal position. A 5 mm trocar was placed in the left lower quadrant and 1 in the suprapubic midline. Evaluation of the right lower quadrant demonstrated the appendix to be somewhat atrophic proximally, but dilated distally. The mesoappendix was divided with the ultrasonic device, 2 Endoloop placed on the appendix, divided between the 2 Endoloop and set aside for later removal. Attention was then turned to the pelvis there were significant adhesions of the rectosigmoid to the vaginal cuff from patient's previous hysterectomy. These were all divided with the ultrasonic device and the operation was turned over to Dr. Shen. After completion of his part, the pelvis and right lower quadrant were irrigated. Hemostasis was deemed to be adequate. The abdomen was deflated. The trocars were removed. Good hemostasis noted at the puncture sites. Fascial incision in the umbilicus closed with interrupted mueptb-ex-oekez suture of 0 PDS. Skin incision closed with 5-0 Vicryl in subcuticular fashion. Benzoin and Steri-Strips were applied. The patient was awakened and transported to recovery room in stable condition, having tolerated the procedure well. Sponge and needle counts were correct. Hany Wahl M.D. JARRED:[id number] /[id number] cc:Jessica Shen M.D. [facility] OPERATIVE NO HNO ID: [id number] Author: Jessica Shen Service: Gynecology Author Type: Physician Type: Operative Report Filed: 05/25/2019 7:40 AM Note Text: [facility] - Operative Report BRISSA JEFFERY : 1965 AGE: 53. SEX: F PATIENT TYPE: A HOSP SVC: OBGYN LOCATION: [facility] ATTENDING PHYSICIAN: Hany Wahl M.D. CSN NUMBER: [id number] DATE OF SURGERY/PROCEDURE: 05/24/2019 INCISION/PROCEDURE START TIME: 10:56 a.m. INCISION CLOSE/PROCEDURE END TIME: 11:49 a.m. PREOPERATIVE DIAGNOSIS: Right adnexal mass POSTOPERATIVE DIAGNOSIS: Same SURGEON: Jessica Shen M.D. INFORMATION COORDINATOR: TREVOR Sol; and TREVOR Pak. SURGERY/PROCEDURE: My surgery is salpingo-oophorectomy. ANESTHESIA: General endotracheal tube. SURGEONS: Dr. Hany Wahl and Dr. Jessica Shen. INDICATIONS: Patient is a 53-year-old female, who is noted to have an abnormal- appearing right adnexa and the decision is made to proceed with salpingo- oophorectomy. FINDINGS: The patient was noted to have 2 masses in the right adnexa, both consistent with a tube and an ovary. It is suspected that the left tube and ovary were in the right adnexa. The lower of the 2 masses, which again was felt to be the left ovary was noted to contain a chocolate cyst, which ruptured during removal. The area was initially covered by bowel adhesions, and both tubes and ovaries were adherent to the right pelvic sidewall. They were both noted to be enlarged in size and consistent with the radiological studies. ESTIMATED BLOOD LOSS: Noted to be scant. DESCRIPTION OF PROCEDURE: Patient was in OR #3 and had just undergone appendectomy and lysis of bowel adhesions by Dr. Hany Wahl, please see his dictation for further details. At this time, attention was directed to the upper mass that again appeared to be the tube and ovary, this was located near what should have been the infundibulopelvic ligament and vessels. This mass was elevated and then using the ultrasonic scissors and cutting it immediately adjacent to the body of what was felt to be the tube and ovary. In a stepwise fashion, the specimen was elevated and then slowly dissected off the pelvic wall. This was then set aside for later retrieval. Attention was then directed to the lower mass where a similar procedure was performed. The area that was felt to be the tube was elevated and this eventually avulsed, it was set aside, and then the ovary was grasped and again this was elevated off the pelvic wall, and then carefully in a stepwise fashion, removed without difficulty. There was noted to be minimal oozing at the base. At this point, the specimens were placed into the Endo pouch and brought up to the umbilical incision. The fascia at the incision was then stretched and then the bag containing the ovaries, fallopian tubes, and appendix were then brought up and out through the abdomen. At this point, the procedure was then taken over by Dr. Hany Wahl, who then proceeded to close the abdomen, please see his dictation for further details. Specimens are tube and ovary and possible tubes and ovaries. COMPLICATIONS: None. DISPOSITION: Again, the patient was turned over to Dr. Hany Wahl for finishing the surgery. Please note, [facility] does not have TAR HEAT EXCHANGER CLEANER residents, thus none was available for this procedure. Jessica Shen M.D. DEIRDRE:[id number] /[id number] Normal [facility] PLAN OF CAREon 05-24-2019 PLAN OF CARE HNO ID: [id number] Author: Stephanie Marsh (Real Estate Professional) Service: Pharmacy Author Type: ? Type: Plan of Care Filed: 05/24/2019 12:28 PM Note Text: TOURIST INFORMATION OFFICER BEDSIDE DELIVERY SURVEY 1. Patient to use [facility] Bedside Delivery - YES Insurance Information as follows: 2. Insurance card on file - YES 3. Credit card for payment - YES PHARMACY BEDSIDE DELIVERY SERVICE Patient Name: Brissa Jeffery The marked outpatient medications were Filled at: [facility] and delivered to the patient's bedside to pharm p/u Medication List START taking these medications HYDROcodone-acetaminop hen 5-325 mg per tablet Commonly known as: NORCO Take 1 tablet by mouth every 6 hours as needed for up to 3 days. X CONTINUE taking these medications AFRIN NASAL Benzoyl Peroxide 5 % external wash Wash affected area once daily as tolerated. Use white towel. celecoxib 100 mg capsule Commonly known as: CeleBREX Take 1 capsule by mouth twice daily. cholecalciferol (Vitamin D3) 50,000 unit Cap capsule Commonly known as: VITAMIN D3 Take 1 capsule by mouth once each week. CLARITIN 10 mg tablet Generic drug: loratadine clindamycin 1 % gel Commonly known as: CLEOCIN-T Apply to affected areas twice daily as needed. EVENING PRIMROSE ORAL Fish Oil-DHA-EPA 1,200-144-216 mg Cap multivitamin tablet NASACORT NASAL SUDAFED ORAL You might also be taking other medications not listed above. If you have questions about any of your other medications, talk to the person who prescribed them or your Primary Care Provider. Stephanie Marsh ([employer]) PAGER: [phone] May 24, 2019 12:28 PM [facility] PT EDon 05-24-2019 PT ED HNO ID: [id number] Author: Ayse GibbsRn) MAHESH Kearns Service: ? Author Type: Registered Nurse Type: Patient Education Filed: 05/24/2019 2:45 PM Note Text: POST OP LEARNING RESPONSE INSTRUCTION PROVIDED TO: Patient and family member METHOD OF INSTRUCTION: Individual instruction Written instruction - handouts Verbal instruction PATIENT / FAMILY RESPONSE: Verbalizes understanding of: INFECTION MANAGEMENT-Signs and symptoms of an infection and importance of contacting the physician PAIN MANAGEMENT-Effective strategies to manage pain in addition to pain medication PHYSICAL RESTRICTIONS-Physical restrictions and recommendations after discharge from the hospital POST-OPERATIVE INSTRUCTIONS-Correct actions to take to reduce postoperative complications FOLLOW-UP PLAN: Patient instructed to call with any further issues Follow-up with Primary Care SUPPLEMENTAL MATERIAL: None REFERRAL (RECOMMENDATION): None Electronically Signed By: Ayse Kearns RN, BSN In Department: [facility] SURGERY [facility] PT ED HNO ID: [id number] Author: Jory GibbsRn) MAHESH Mandujano Service: Nursing Author Type: Registered Nurse Type: Patient Education Filed: 05/24/2019 9:05 AM Note Text: PRE OP LEARNING ASSESSMENT PROCEDURE/SURGERY: SURGERY: Belkys Roy, RAND possible L Oophorectomy READINESS TO LEARN COGNITIVE ABILITY: Alert and oriented MOTIVATION TO LEARN: Interested FAMILY SUPPORT: High - Very involved in pt care PATIENT LEARNS BEST BY: Written Instruction - Hand-outs Verbal Instruction FACTORS AFFECTING LEARNING: None PHYSICAL LIMITATIONS AFFECTING LEARNING: None Electronically Signed By: Jory Mandujano RN In Department: [facility] SURGERY Normal [facility] SURGICAL PATHOLOGYon 019 SURGICAL PATHOLOGY Specimen originated from [facility] Specimen #: [id number] Submitting Physician: Hany Wahl M.D. FINAL DIAGNOSIS 1. Appendix, resection (A) Appendix with distal fibrosis, negative for neoplasm, see comment. 2. Right fallopian tube and ovary, resection (B): - Multifocal surface deposits of acellular mucin, see comment. - Tubo-ovarian adhesions, extensive. - Follicular cysts and hemorrhagic corpus luteum of ovary. - Michael tumor of ovary. AES/db 05/29/2019 COMMENT Numerous mucin deposits with neovascularization, histiocytes with foreign body reaction, calcification and fibrovascular adhesions are identified in Part B. The areas with mucin deposits include collagenous tissue of nonspecific origin and serosal surfaces of ovary and fallopian tube. No neoplastic epithelium is identified within the mucin. The presence of the acellular mucin is of concern because it could represent secondary involvement by a mucinous neoplasm from sites such as gastrointestinal including appendix, pancreas or ovary. No definite parenchymal invasion of organs by the mucin is identified and no mucin deposits are present on the appendix. A single focus of intestinal-type mucinous epithelium with bland well-differentiated features is identified in continuity with benign salpingeal tissue. No definite endometriosis or metaplastic endometriosis, germ cell neoplasia, mucinous component in the Michael tumor or appendiceal neoplasm were identified. Due to anatomic distortions and fragmentation of the specimen, we were unable to determine if the tissue in part B represents bilateral ovaries and tubes. Preliminary findings were discussed with Drs. Rimma Wahl and Elizabeth Shen on 05/29/19 and 05/30/19. Jose Jaime J. McKenney, Asad and Przybycin were consulted and concur. Dr. Ronit Puri was consulted (A). Adela Nelson M.D. (Electronic Signature) _ SPECIMEN SUBMITTED A: APPENDIX B: RIGHT FALLOPIAN TUBE AND OVARY CLINICAL DATA ABD PAIN, LMP: NA LAPAROSCOPIC APPENDECTOMY; LAPAROSCOPIC RIGHT SALPINGO-OOPHORECTOMY GROSS DESCRIPTION A. Received in formalin and labeled appendix is an appendix with attached mesoappendix. The appendix measures 5.5 cm in length with a diameter ranging from 0.3 cm at the distal tip up to 0.8 cm at the mid to proximal aspect. The proximal margin is inked blue. The unremarkable mesoappendix measures 5.5 x 2.7 x 1.5 cm and the mesoappendiceal margin is then inked orange. The serosa is smooth with a few congested blood vessels. No perforations are noted. The wall has an average thickness of 0.2 cm. The mucosa is pink-zhao. The lumen along the distal one third is markedly narrowed and difficult to identify. The lumen of the remainder of the segment is filled with a slight amount of green fecal material. No fecaliths are noted. The appendix is entirely submitted as follows: A1 bisected tip, A2 proximal mesoappendiceal margins, shave, A3-A4 remainder of appendix submitted in distal to proximal fashion. B. Received in formalin and labeled right tube and ovary are two disrupted fragments of ovary weighing 22 grams. There are two separate segments of fimbriated fallopian tube, the fimbriated half of which is adhered to one of the ovarian fragments. The two fragments of ovarian tissue measure 2.5 cm and 4.2 cm in greatest dimension, aggregating 4 x 4 x 2 cm. The fimbriated fallopian tube adherent to the segment of ovarian tissue measures 3 cm in length with a diameter of 0.5 cm and has a blunted proximal end adherent to the ovarian tissue. The separate segment of fallopian tube measures 4 cm in length with an average diameter of 0.3 cm and is otherwise unremarkable. There are adhesions between the fimbriated fallopian tube and ovary with a 1 cm paratubal cyst. The surface of the ovarian tissue is somewhat disrupted, [id number] with adhesions. Sectioning of the ovarian tissue reveals a few hemorrhagic corpus luteum cysts ranging up to 1.5 cm, a few thin-walled clear fluid-filled cystic structures ranging up to 1.5 cm. The lining of the cysts are smooth with no papillary-like excrescences noted. Further sectioning reveals a 1.5 cm cystic nodular area filled with yellow, somewhat gelatinous appearing tissue abutting the blunted edge of the fallopian tube. The fallopian tube does not appear to communicate with this tissue. Yarn Carrier sections submitted as follows: B1 cystic yellow gelatinous appearing tissue of the ovary abutting the blunted end of the fimbriated fallopian tube, B2-B3 sections of ovarian tissue ,B4 fimbriated end of fallopian tube bisected and entirely submitted, B5 cross sections of each fallopian tube segment and a section of the paratubal cyst. ELECTRIC MOTOR AND GENERATOR ASSEMBLER//05-24-2019 The remainder of the specimen is submitted as follows: B6-B7 remainder of the fallopian tube; B8 tissue abutting the blunted end of the fimbriated fallopian tube; B9-B22 remainder of the ovary. ELECTRIC MOTOR AND GENERATOR ASSEMBLER/adb/05/28/2019 Gross examination performed at [facility], [address] [place] [address] Date of Report: 06/01/2019 Date of Procedure: 05/24/2019 Date of Receipt: 05/24/2019 Submitted by: Hany Wahl M.D. Additional Physician(s): JESSICA SHEN Location: [facility] Diagnostic interpretation performed at [facility], [address] [place] [address]. CLIA Number: [id number] [facility] US THYROID/PARATHYROIDon US THYROID/PARATHYROID * * *Final Report * * * DATE OF EXAM: May 14 2019 8:45AM [facility] 1048 - US THYROID/PARATHYROID / PROCEDURE REASON: E04.2-Multiple thyroid nodules * * * * Physician Interpretation * * * * THYROID ULTRASOUND CLINICAL HISTORY: Multiple thyroid nodules COMPARISON: 05/05/2018 TECHNIQUE: Sonography and Doppler imaging of the thyroid was performed. Images were obtained and stored in a permanent archive. RESULT: RIGHT LOBE: Size: 2.8x 2.0x 5.5 cm Echotexture: Heterogeneous Nodules: Present, multiple right thyroid lobe nodules, the largest were measured: Nodule 1 Location: Inferior Size: 1.2 x 1.0 x 1.0 cm , likely corresponding to a 1.0 x 1.0 x 1.2 cm nodule on prior exam of 05/05/2018 Characteristics: Hypoechoic solid Nodule 2 Location: Inferior Size: 0.7 x 1.4 x 1.4 cm , previously 0.6 x 1.4 x 1.4 cm Characteristics: Isoechoic solid LEFT LOBE: Size: 2.6x 2.6x 5.1 cm Echotexture: Homogeneous Nodules: Present, multiple left thyroid lobe nodules, the largest are measured: Nodule 1 Location: Mid Size: 2.3 x 2.0 x 3.1 cm , corresponding to a 2.2 x 1.9 x 3.1 cm nodule on prior exam Characteristics: Hypoechoic solid with vascularity Nodule 2 Location: Inferior Size: 0.5 x 0.9 x 1.0 cm , previously 0.5 x 0.9 x 1.0 cm Characteristics: Hypoechoic solid ISTHMUS: AP diameter: 4 mm Nodules: None. IMPRESSION: Bilateral stable thyroid nodules, as described. Asphalt Surface Heater Operator: LENARD Transcribe Date/Time: May 14 2019 11:06A Dictated by : ARI HAMMOND MD This examination was interpreted and the report reviewed and electronically signed by: ARI HAMMOND MD on May 14 2019 11:13AM EST [id number] [facility] US THYROID/PARATHYROIDon US THYROID/PARATHYROID * * *Final Report * * *DATE OF EXAM: May 05 2018 9:44AM [facility] 1048 - US THYROID/PARATHYROID / REASON: thyroid nodule * * * * Physician Interpretation * * * *RESULT: EXAMINATION: THYROID ULTRASOUNDHISTORY: Follow-up of?thyroid nodule ([facility]NA, 2009)TECHNIQUE: Sonography and Doppler imaging of the thyroid was performed. Images were obtained and stored in a permanent archive.COMPARISON: 08/31/2010, 02/25/2009.RESULT:RIGH T LOBE: 5.4 x 1.7 x 2.1 cm; mildly heterogeneous echogenicity, expected vascular flowLEFT LOBE: 4.9 x 2.2 x 2.7 cm; homogeneous echogenicity, expected vascular flowISTHMUS: 0.3 cmNodules: Bilateral, dominant/most suspicious nodules:NODULE 1Location: Left lobe mid to lower poleSize: 3.1 x 1.9 x 2.2 cm, previously 1.7 in maximum diameterCharacteristic s: Composition: Solid or almost completely solid, 2 points Echogenicity: Heterogeneously hypoechoic, 2 points Shape: Bykgr-ymbh-wrqe, 0 points Margin: Smooth, 0 points Echogenic foci: None, 0 pointsTI-RADS Category: TI-RADS 4, moderately suspicious Internal vascularity: presentNODULE 2Location: Right lobe inferiorlySize: 1.4 x 0.6 x 1.3 cm, previously 1.0 x 0.9 x 0.8 cm on the 2009 exam.Characteristics: Composition: Solid or almost completely solid, 2 points Echogenicity: Hypoechoic, 2 points Shape: [id number], 0 points Margin: Smooth, 0 points Echogenic foci: None, 0 pointsTI-RADS Category: TI-RADS 4, moderately suspicious Internal vascularity: presentThere are additional subcentimeter hypoechoic nodules in each lobe.IMPRESSION:Bilate ral thyroid nodules, the largest in the mid to lower LEFT lobe has increased from the 2009 study.TI-RADS Category: TI-RADS 4 in each lobe.ACR Recommendation: For this TI-RADS 4 nodule larger than 1.5 cm (the LEFT lobe nodule), repeat FNA is recommended.Transcribe d Using Voice RecognitionTranscribe Date/Time: May 05 2018 10:13ADictated by: ARNULFO THAKKAR MDThis examination was interpreted and the report reviewed and electronically signed by: ARNULFO THAKKAR MD on May 05 2018 10:24AM [id number] [facility] OPERATIVE REPORTon OPERATIVE REPORT NAME: GELY JEFFERY#: [id number]: Ta Lutz, MDDATE OF SURGERY: 09/28/2017OPERATIVE REPORTPREOPERATIVE DIAGNOSES: Chronic maxillary and ethmoid sinusitis. Eustachiantube dysfunction. Inferior turbinate dysfunction.POSTOPERAT LORETTA DIAGNOSES: Chronic maxillary and ethmoid sinusitis. Eustachiantube dysfunction. Inferior turbinate dysfunction.OPERATION PERFORMED: Bilateral partial ethmoidectomy, maxillary antrostomywith removal of tissue, eustachian tube balloon dilation, and inferiorturbinate submucous resection.DESCRIPTION OF PROCEDURE: With general LMA anesthesia, the nose wasanesthetized and decongested using Xylocaine 1% with 1:100,000 adrenaline.Epinephrine 1:10,000 was used on cottonoids. The 0 degree endoscope was usedto visualize nose on the right. The patient had had eustachian tubedysfunction bilaterally documented by audiogram. This did not respond tomedical management. Therefore, eustachian tube balloon dilation was performedby placing the balloon up into the eustachian tube dilating the cartilaginousportion only. This was done for 2 minutes. The same was done to the oppositeside without any difficulty. The 0 degree endoscope then was used tovisualize the ostiomeatal complex. Scar tissue was seen in this area and alarge ethmoid bulla. The anterior and posterior ethmoidectomy was performedidentifying the fovea ethmoidalis and lamina papyracea. The natural ostium tothe maxillary sinus could be seen. It was opened to a size of 1 x 1 cm and asmall polypoid mass removed from within the sinus. The same was done to theopposite side. An incision was made at the anterior aspect of the inferiorturbinate. The submucosal turbinate blade was placed into the submucosaltissue and bony tissue removed. This was done on the opposite side also.NasoPore dressing was placed in the nose. Telfa with Bactroban placed in thenose. The patient sent to recovery in stable condition. __AMMON RYAN/DAVID/[id number]: 09/28/2017 07:40:39 E/S: GORAN Rodriguez. [facility] PT NAME: BRISSA JEFFERYBEATRIS#: [id number] [place] [address] ACCT: [id number]: 66OPERATIVE USANIE89/13/17 1244Signature on FileSCOLLEGE [facility] NAME: GELY JEFFERY#: [id number] [place] [id number] ACCT: [id number]: 66OPERATIVE REPORT Normal [facility] SURGon 09-28-2017 SURG Normal [facility] Comment on above: Result Comment: RUN DATE: 09/30/17 [facility] *LIVE* PAGE 1RUN TIME: 1417 Specimen InquiryRUN USER: [employer] Name: ROSETTE JEFFERY : 67 Sex:F Attend Dr: Ta Lutz [facility]#: [id number] Unit#: [id number] Status: [facility] Location: [facility] Received: 09/28/17 Status: GEENA Summers#: [id number]#: [id number] Collected: 09/28/[address] [facility] [address]: Ta Lutz MDTISSUES: A. SINUS - RIGHT CONTENTS B. SINUS - LEFT CONTENTS MICROSCOPIC EXAM: A,B. One H&E stained slide from each specimen is examined. DIAGNOSIS: A. RIGHT SINUS CONTENTS, EXCISION: - FRAGMENTS OF BONE AND UPPER RESPIRATORY TRACT MUCOSA WITH MILD CHRONIC INFLAMMATION B. LEFT SINUS CONTENTS, EXCISION: - FRAGMENTS OF BONE AND UPPER RESPIRATORY TRACT MUCOSA WITH MILD CHRONIC INFLAMMATION Signed Signature on File ADI JACOB 09/30/17 1417 [facility] Name: [facility] Hosp Num: [id number] A Ministry of Age / Sex: 51/F [facility] Physician: Ta Lutz MD [address] [place] [address] Location: [facility] END OF REPORT Performed By: #### P SURG ####Test performed at: [place] [address] BASIC MET PANELon 09-26-2017 Anion gap 11 mmol/L Normal -18 [facility] Comment on above: Order Comment: CBN: YESCampus: MAIN Performed By: #### L 500.94765, L500.66749 ####Test performed at: [place] [address] Calcium 8.2 mg/dL Low 8.5-10.1 [facility] Comment on above: Order Comment: CBN: YESCampus: MAIN Performed By: #### L 500.41209, L500.01536 ####Test performed at: [place] [address] Chloride 106 mmol/L Normal 98-107 [facility] Comment on above: Order Comment: CBN: YESCampus: MAIN Performed By: #### L 500.75754, L500.28634 ####Test performed at: [address] [address] CO2 27 mmol/L Normal 21-32 [facility] Comment on above: Order Comment: CBN: YESCampus: MAIN Performed By: #### L 500.06513, L500.87413 ####Test performed at: [place] [id number] Creatinine 0.901 mg/dL Normal 0.550-1.020 [facility] Comment on above: Order Comment: CBN: YESCampus: MAIN Performed By: #### L 500.89029, L500.14872 ####Test performed at: [address] [address] Glucose mass conc 92 mg/dL Normal 74-106 [facility] Comment on above: Order Comment: CBN: YESCampus: MAIN Performed By: #### L 500.18498, L500.28037 ####Test performed at: [address] [address] OSM 289 mosm/kg Normal 270-300 [facility] Comment on above: Order Comment: CBN: YESCampus: MAIN Performed By: #### L 500.47340, L500.57824 ####Test performed at: [address] [address] Potassium molar conc 3.9 mmol/L Normal 3.5-5.1 [facility] Comment on above: Order Comment: CBN: YESCampus: MAIN Performed By: #### L 500.08727, L500.90128 ####Test performed at: [address], [place] [address] Sodium 140 mmol/L Normal 136-145 [facility] Comment on above: Order Comment: CBN: YESCampus: MAIN Performed By: #### L 500.72451, L500.44339 ####Test performed at: [address] [address] Urea nitrogen 10 mg/dL Normal 7-18 [facility] Comment on above: Order Comment: CBN: YESCampus: MAIN Performed By: #### L 500.42001, L500.03066 ####Test performed at: [address] [address] CBC W/DIFFon 09-26-2017 BASO ABS 0.0 K/uL Normal 0.0-0.2 [facility] Comment on above: Order Comment: CBN: YESCampus: MAIN Performed By: #### L 200.62897 ####Test performed at: [address] [address] Basophils/100 WBC Auto (Bld) 0.1 % Normal [facility] Comment on above: Order Comment: CBN: YESCampus: MAIN Performed By: #### L 200.22718 ####Test performed at: [address] [address] EOS ABS 0.2 K/uL Normal 0.0-0.5 [facility] Comment on above: Order Comment: CBN: YESCampus: MAIN Performed By: #### L 200.46056 ####Test performed at: [address] [address] Eosinophils/100 leukocytes 2.4 % Normal [facility] Comment on above: Order Comment: CBN: YESCampus: MAIN Performed By: #### L 200.46448 ####Test performed at: [address] [address] Erythrocyte distribution width Auto Ratio (RBC) 13.9 % Normal 11.5-14.5 [facility] Comment on above: Order Comment: CBN: YESCampus: MAIN Performed By: #### L 200.84481 ####Test performed at: [address] [address] Erythrocytes (RBC) 4.44 10*6/uL Normal 3.5-5.5 [facility] Comment on above: Order Comment: CBN: YESCampus: MAIN Performed By: #### L 200.67909 ####Test performed at: [address] [address] Erythrocytes (RBC) 0.000 10*6/uL Normal 0-0.012 [facility] Comment on above: Order Comment: CBN: YESCampus: MAIN Performed By: #### L 200.29831 ####Test performed at: [address] [address] Hematocrit (HCT) 39.5 % Normal 36.0-48.0 [facility] Comment on above: Order Comment: CBN: YESCampus: MAIN Performed By: #### L 200.94704 ####Test performed at: [address] [address] Hemoglobin mass conc (Bld) 12.8 g/dL Normal 12.0-15.0 [facility] Comment on above: Order Comment: CBN: YESCampus: MAIN Performed By: #### L 200.20955 ####Test performed at: [address] [address] IG % 0.4 % Normal [facility] Comment on above: Order Comment: CBN: YESCampus: MAIN Performed By: #### L 200.98444 ####Test performed at: [address] [address] IG ABS 0.03 K/uL Normal 0-0.05 [facility] Comment on above: Order Comment: CBN: YESCampus: MAIN Performed By: #### L 200.32652 ####Test performed at: [address] [address] Lymphocytes 1.7 10*3/uL Normal 1.2-3.5 [facility] Comment on above: Order Comment: CBN: YESCampus: MAIN Performed By: #### L 200.02753 ####Test performed at: [address] [address] Lymphocytes/100 leukocytes 20.7 % Normal [facility] Comment on above: Order Comment: CBN: YESCampus: MAIN Performed By: #### L 200.96155 ####Test performed at: [place] [id number] MCH 28.8 pg Normal 25.4-34.6 [facility] Comment on above: Order Comment: CBN: YESCampus: MAIN Performed By: #### L 200.86176 ####Test performed at: [address] [address] MCHC mass conc (RBC) 32.4 g/dL Normal 31.5-36.5 [facility] Comment on above: Order Comment: CBN: YESCampus: MAIN Performed By: #### L 200.91007 ####Test performed at: [address] [address] MCV 89.0 fL Normal 79.0-98.0 [facility] Comment on above: Order Comment: CBN: YESCampus: MAIN Performed By: #### L 200.03344 ####Test performed at: [address] [address] MONO ABS 0.5 K/uL Normal 0.0-1.0 [facility] Comment on above: Order Comment: CBN: YESCampus: MAIN Performed By: #### L 200.42791 ####Test performed at: [address] [address] Monocytes/100 leukocytes 6.7 % Normal [facility] Comment on above: Order Comment: CBN: YESCampus: MAIN Performed By: #### L 200.59977 ####Test performed at: [address] [address] Neutrophils 5.6 10*3/uL Normal 1.4-6.6 [facility] Comment on above: Order Comment: CBN: YESCampus: MAIN Performed By: #### L 200.10899 ####Test performed at: [address] [address] Neutrophils/100 WBC Auto (Bld) 69.7 % Normal [facility] Comment on above: Order Comment: CBN: YESCampus: MAIN Performed By: #### L 200.92577 ####Test performed at: [address] [address] NRBC % 0.0 /100 WBC Normal 0-0.2 [facility] Comment on above: Order Comment: CBN: YESCampus: MAIN Performed By: #### L 200.91808 ####Test performed at: [address] [address] Platelet mean volume (PMV) 9.9 fL Normal 8.7-12.4 [facility] Comment on above: Order Comment: CBN: YESCampus: MAIN Performed By: #### L 200.33063 ####Test performed at: [address] [address] Platelets 152 10*3/uL Normal 140-440 [facility] Comment on above: Order Comment: CBN: YESCampus: MAIN Performed By: #### L 200.48439 ####Test performed at: [place] [address] WBC (Leukocytes) 8.1 10*3/uL Normal 3.9-11.0 [facility] Comment on above: Order Comment: CBN: YESCampus: MAIN Performed By: #### L 200.68167 ####Test performed at: [place] [address] GFR ESTIMATEon 09-26-2017 IF AMER > 60 Normal > 60 [facility] Comment on above: Order Comment: CBN: YESCampus: MAIN Result Comment: eGFR (Estimated GFR) Units of measure:mL/min/1.73 meters sq.*CALCULATION REVISED 08/12/2015;IDMS-traceable MDRD equationeGFR is derived from the reexpressed MDRD Study equationusing the following parameters: serum creatinine, age,gender and race. An eGFR<60 mL/min/1.73m2 for >3 monthsis consistent with chronic kidney disease. Refer to [facility] for clinical interpretation. Performed By: #### L 500.11963, L500.72021 ####Test performed at: [place] [address] IF non-AFR AMER > 60 Normal > 60 [facility] Comment on above: Order Comment: CBN: YESCampus: MAIN Performed By: #### L 500.26040, L500.90510 ####Test performed at: [place] [address] Culture, urine Bacteria identified Cx Nom (U) Positive [facility] Work Phone: Vital Signs Date Time Vital Sign Value Performing Clinician Facility 08-13-2025 16:09-0400 Body height 167.64 cm Out [facility] Doctor [facility] 08-13-2025 16:09-0400 Body mass index (BMI) [Ratio] 44.4 kg/m2 Out [facility] 08-13-2025 16:09-0400 Body temperature 98.2 [degF] Out [facility] Doctor [facility] 08-13-2025 16:09-0400 Body weight 124.73 kg Out [facility] 08-13-2025 16:09-0400 Diastolic blood pressure 82 mm[Hg] Out [facility] 08-13-2025 16:09-0400 Heart rate 82 /min Out [facility] 08-13-2025 16:09-0400 Respiratory rate 16 /min Out [facility] 08-13-2025 16:09-0400 SaO2% (BldA) [Mass fraction] 97 % Out [facility] 08-13-2025 16:09-0400 Systolic blood pressure 128 mm[Hg] Out [facility] 06-13-2025 10:09-0400 Body height 167.6 cm Martin Hyatt MD Work Phone: [facility] 06-13-2025 10:09-0400 Body mass index (BMI) [Ratio] 43.26 kg/m2 Martin Hyatt MD Work Phone: [facility] 06-13-2025 10:09-0400 Body weight 121.56 kg Martin Hyatt MD Work Phone: [facility] 06-13-2025 10:09-0400 Diastolic blood pressure 80 mm[Hg] Martin Hyatt MD Work Phone: [facility] 06-13-2025 10:09-0400 Heart rate 84 /min Martin Hyatt MD Work Phone: [facility] 06-13-2025 10:09-0400 Systolic blood pressure 124 mm[Hg] Martin Hyatt MD Work Phone: [facility] 05-30-2025 10:32-0400 Body height 167.6 cm Ashley Richards CNP Work Phone: [facility] 05-30-2025 10:32-0400 Body mass index (BMI) [Ratio] 44.22 kg/m2 Alexander SUSTAINABILITY COORDINATOR - REFINERY PROCESS ENGINEER Work Phone: [facility] 05-30-2025 10:32-0400 Body temperature 97.5 [degF] Ashley Alexander SUSTAINABILITY COORDINATOR - REFINERY PROCESS ENGINEER Work Phone: [facility] 05-30-2025 10:32-0400 Body weight 124.29 kg Ashley Alexander SUSTAINABILITY COORDINATOR - REFINERY PROCESS ENGINEER Work Phone: [facility] 05-30-2025 10:32-0400 Diastolic blood pressure 71 mm[Hg] Ashley Alexander SUSTAINABILITY COORDINATOR - REFINERY PROCESS ENGINEER Work Phone: [facility] 05-30-2025 10:32-0400 Heart rate 90 /min Ashley Alexander APRN - REFINERY PROCESS ENGINEER Work Phone: [facility] 05-30-2025 10:32-0400 Systolic blood pressure 120 mm[Hg] Ashley Alexander SUSTAINABILITY COORDINATOR - REFINERY PROCESS ENGINEER Work Phone: [facility] 05-28-2025 10:41-0400 Body height 167.6 cm Demetri Cartagena MD Work Phone: [facility] 05-28-2025 10:41-0400 Body mass index (BMI) [Ratio] 44.31 kg/m2 Demetri Cartagena MD Work Phone: [facility] 05-28-2025 10:41-0400 Body temperature 98.1 [degF] Demetri Cartagena MD Work Phone: [facility] 05-28-2025 10:41-0400 Body weight 124.51 kg Demetri Cartagena MD Work Phone: [facility] 05-28-2025 10:41-0400 Diastolic blood pressure 87 mm[Hg] Demetri Cartagena MD Work Phone: [facility] 05-28-2025 10:41-0400 Heart rate 94 /min Demetri Cartagena MD Work Phone: [facility] 05-28-2025 10:41-0400 Respiratory rate 18 /min Demetri Cartagena MD Work Phone: [facility] 05-28-2025 10:41-0400 SaO2% (BldA) [Mass fraction] 97 % Demetri Cartagena MD Work Phone: [facility] 05-28-2025 10:41-0400 Systolic blood pressure 122 mm[Hg] Demetri Cartagena MD Work Phone: [facility] 05-22-2025 10:11-0400 Body height 167.6 cm Martin Hyatt MD Work Phone: [facility] 05-22-2025 10:11-0400 Body mass index (BMI) [Ratio] 44.22 kg/m2 Martin Hyatt MD Work Phone: [facility] 05-22-2025 10:11-0400 Body weight 124.29 kg Martin Hyatt MD Work Phone: [facility] 05-22-2025 10:11-0400 Diastolic blood pressure 80 mm[Hg] Martin Hyatt MD Work Phone: [facility] 05-22-2025 10:11-0400 Heart rate 83 /min Martin Hyatt MD Work Phone: [facility] 05-22-2025 10:11-0400 Systolic blood pressure 129 mm[Hg] Martin Hyatt MD Work Phone: [facility] 05-15-2025 13:38-0400 Body height 167.6 cm Sudhir Keila DO Work Phone: [facility] 05-15-2025 13:38-0400 Body mass index (BMI) [Ratio] 44.06 kg/m2 Sudhir Keila DO Work Phone: [facility] 05-15-2025 13:38-0400 Body temperature 98.8 [degF] Sudhir Pedraza DO Work Phone: [facility] 05-15-2025 13:38-0400 Body weight 123.83 kg Sudhir Keila DO Work Phone: [facility] 05-15-2025 13:38-0400 Diastolic blood pressure 72 mm[Hg] Sudhir Keila DO Work Phone: [facility] 05-15-2025 13:38-0400 Heart rate 95 /min Sudhir Keila DO Work Phone: [facility] 05-15-2025 13:38-0400 SaO2% (BldA) [Mass fraction] 98 % Sudhir Keila DO Work Phone: [facility] 05-15-2025 13:38-0400 Systolic blood pressure 126 mm[Hg] Sudhir Keila DO Work Phone: [facility] 05-10-2025 13:40-0400 Body height 167.6 cm Vonnie Garza MD Work Phone: [facility] 05-10-2025 13:40-0400 Body mass index (BMI) [Ratio] 45.19 kg/m2 Vonnie Garza MD Work Phone: [facility] 05-10-2025 13:40-0400 Body weight 127.01 kg Vonnie Garza MD Work Phone: [facility] 02-19-2025 13:26-0400 Diastolic blood pressure 90 mm[Hg] Sudhir Keila DO Work Phone: [facility] 02-19-2025 13:26-0400 Systolic blood pressure 150 mm[Hg] Sudhir Keila DO Work Phone: [facility] 02-19-2025 13:04-0400 Heart rate 81 /min Sudhir Keila DO Work Phone: [facility] 02-19-2025 13:04-0400 SaO2% (BldA) [Mass fraction] 98 % Sudhir Keila DO Work Phone: [facility] 01-31-2025 10:39-0400 Body height 168.9 cm Eliu Maldonado MD Work Phone: [facility] 01-31-2025 10:39-0400 Body mass index (BMI) [Ratio] 44.52 kg/m2 Eliu Maldonado MD Work Phone: [facility] 01-31-2025 10:39-0400 Body weight 127.01 kg Eliu Maldonado MD Work Phone: [facility] 01-31-2025 10:39-0400 Diastolic blood pressure 86 mm[Hg] Eliu Maldonado MD Work Phone: [facility] 01-31-2025 10:39-0400 Heart rate 87 /min Eliu Maldonado MD Work Phone: [facility] 01-31-2025 10:39-0400 SaO2% (BldA) [Mass fraction] 96 % Eliu Maldonado MD Work Phone: [facility] 01-31-2025 10:39-0400 Systolic blood pressure 145 mm[Hg] Eliu Maldonado MD Work Phone: [facility] 01-17-2025 10:58-0400 Diastolic blood pressure 83 mm[Hg] Eliu Jackson MD Work Phone: [facility] 01-17-2025 10:58-0400 Systolic blood pressure 139 mm[Hg] Eliu Jackson MD Work Phone: [facility] 01-15-2025 15:31-0400 Diastolic blood pressure 84 mm[Hg] Sudhir Keila DO Work Phone: [facility] 01-15-2025 15:31-0400 Systolic blood pressure 136 mm[Hg] Sudhir Keila DO Work Phone: [facility] 01-15-2025 15:20-0400 Body height 167.6 cm Sudhir Keila DO Work Phone: [facility] 01-15-2025 15:20-0400 Body mass index (BMI) [Ratio] 45.03 kg/m2 Sudhir Keila DO Work Phone: [facility] 01-15-2025 15:20-0400 Body temperature 98.2 [degF] Sudhir Keila DO Work Phone: [facility] 01-15-2025 15:20-0400 Body weight 126.55 kg Sudhir Pedraza DO Work Phone: [facility] 01-15-2025 15:20-0400 Heart rate 82 /min Sudhir Keila DO Work Phone: [facility] 01-15-2025 15:20-0400 SaO2% (BldA) [Mass fraction] 98 % Sudhir Pedraza DO Work Phone: [facility] 11-29-2024 09:34-0500 Body height 167.6 cm Vonnie Garza MD Work Phone: [facility] 11-29-2024 09:34-0500 Body mass index (BMI) [Ratio] 44.87 kg/m2 Vonnie Garza MD Work Phone: [facility] 11-29-2024 09:34-0500 Body temperature 98.4 [degF] Vonnie aGrza MD Work Phone: [facility] 11-29-2024 09:34-0500 Body weight 126.1 kg Vonnie Garza MD Work Phone: [facility] 11-29-2024 09:34-0500 Diastolic blood pressure 67 mm[Hg] Vonnie Garza MD Work Phone: [facility] 11-29-2024 09:34-0500 Heart rate 90 /min Vonnie Garza MD Work Phone: [facility] 11-29-2024 09:34-0500 Respiratory rate 20 /min Vonnie Garza MD Work Phone: [facility] 11-29-2024 09:34-0500 Systolic blood pressure 126 mm[Hg] Vonnie Garza MD Work Phone: [facility] 11-27-2024 13:33-0500 Body height 167.6 cm Sudhir Pedraza DO Work Phone: [facility] 11-27-2024 13:33-0500 Body mass index (BMI) [Ratio] 44.87 kg/m2 Sudhir Keila DO Work Phone: [facility] 11-27-2024 13:33-0500 Body temperature 97.2 [degF] Sudhir Pedraza DO Work Phone: [facility] 11-27-2024 13:33-0500 Body weight 126.1 kg Sudhir Pedraza DO Work Phone: [facility] 11-27-2024 13:33-0500 Diastolic blood pressure 67 mm[Hg] Sudhir Keila DO Work Phone: [facility] 11-27-2024 13:33-0500 Heart rate 73 /min Sudhir Pedraza DO Work Phone: [facility] 11-27-2024 13:33-0500 SaO2% (BldA) [Mass fraction] 100 % Sudhir Pedraza DO Work Phone: [facility] 11-27-2024 13:33-0500 Systolic blood pressure 126 mm[Hg] Sudhir Pedraza DO Work Phone: [facility] 11-14-2024 10:34-0500 Body height 167.6 cm Eliu Maldonado MD Work Phone: [employer] 11-14-2024 10:34-0500 Body mass index (BMI) [Ratio] 45.03 kg/m2 Eliu Maldonado MD Work Phone: [facility] [employer] 11-14-2024 10:34-0500 Body weight 126.55 kg Eliu Maldonado MD Work Phone: [facility] 11-14-2024 10:34-0500 Diastolic blood pressure 89 mm[Hg] Eliu Maldonado MD Work Phone: [facility] 11-14-2024 10:34-0500 Heart rate 90 /min Eliu Maldonado MD Work Phone: [facility] 11-14-2024 10:34-0500 Systolic blood pressure 138 mm[Hg] Eliu Maldonado MD Work Phone: [facility] 10-08-2024 10:11-0500 Body height 167.6 cm Eliu Maldonado MD Work Phone: [facility] 10-08-2024 10:11-0500 Body mass index (BMI) [Ratio] 44.55 kg/m2 Eliu Maldonado MD Work Phone: [facility] 10-08-2024 10:11-0500 Body weight 125.19 kg Eliu Maldonado MD Work Phone: [facility] 10-08-2024 10:11-0500 Diastolic blood pressure 75 mm[Hg] Eliu Maldonado MD Work Phone: [facility] 10-08-2024 10:11-0500 Heart rate 82 /min Eliu Maldonado MD Work Phone: [facility] 10-08-2024 10:11-0500 Respiratory rate 18 /min Eliu Maldonado MD Work Phone: [facility] 10-08-2024 10:11-0500 SaO2% (BldA) [Mass fraction] 97 % Eliu Maldonado MD Work Phone: [facility] Comment on above: 10-08-2024 10:11-0500 Systolic blood pressure 129 mm[Hg] Eliu Maldonado MD Work Phone: [facility] 10-08-2024 07:47-0500 Body height 167.6 cm Sudhir Pedraza DO Work Phone: [facility] 10-08-2024 07:47-0500 Body mass index (BMI) [Ratio] 44.55 kg/m2 Sudhir Keila DO Work Phone: [facility] 10-08-2024 07:47-0500 Body temperature 98.6 [degF] Sudhir Keila DO Work Phone: [facility] 10-08-2024 07:47-0500 Body weight 125.19 kg Sudhir Keila DO Work Phone: [facility] 10-08-2024 07:47-0500 Diastolic blood pressure 75 mm[Hg] Sudhir Keila DO Work Phone: [facility] 10-08-2024 07:47-0500 Heart rate 89 /min Sudhir Keila DO Work Phone: [facility] 10-08-2024 07:47-0500 SaO2% (BldA) [Mass fraction] 99 % Sudhir Keila DO Work Phone: [facility] 10-08-2024 07:47-0500 Systolic blood pressure 127 mm[Hg] Sudhir Keila DO Work Phone: [facility] [employer] 09-06-2024 08:41-0500 Diastolic blood pressure 74 mm[Hg] Sudhir Keila DO Work Phone: [facility] [employer] 09-06-2024 08:41-0500 Systolic blood pressure 116 mm[Hg] Sudhir Keila DO Work Phone: [facility] [employer] 09-06-2024 08:35-0500 Body height 167.6 cm Sudhir Keila DO Work Phone: [facility] [employer] 09-06-2024 08:35-0500 Body mass index (BMI) [Ratio] 43.26 kg/m2 Sudhir Keila DO Work Phone: [facility] [employer] 09-06-2024 08:35-0500 Body temperature 98.4 [degF] Sudhir Keila DO Work Phone: [facility] [employer] 09-06-2024 08:35-0500 Body weight 121.56 kg Sudhir Keila DO Work Phone: [facility] [employer] 09-06-2024 08:35-0500 Heart rate 80 /min Sudhir Pedraza DO Work Phone: [facility] [employer] 09-06-2024 08:35-0500 SaO2% (BldA) [Mass fraction] 99 % Sudhir Pedraza DO Work Phone: [facility] [employer] 08-31-2024 14:22-0500 Diastolic blood pressure 76 mm[Hg] Jeff Mudrakola DO Work Phone: [facility] [employer] 08-31-2024 14:22-0500 Heart rate 76 /min Jeff Mudrakola DO Work Phone: [facility] [employer] 08-31-2024 14:22-0500 Respiratory rate 20 /min Jeff Mudrakola DO Work Phone: [facility] [employer] 08-31-2024 14:22-0500 SaO2% (BldA) [Mass fraction] 100 % Jeff Luisrakola DO Work Phone: [facility] [employer] 08-31-2024 14:22-0500 Systolic blood pressure 123 mm[Hg] Jeff Mudrakola DO Work Phone: [facility] [employer] 08-31-2024 09:58-0500 Body temperature 97.81 [degF] Jeff Mudrakola DO Work Phone: [facility] [employer] 08-31-2024 09:55-0500 Body height 167.6 cm Jeff Mudrakola DO Work Phone: [facility] [employer] 08-31-2024 09:55-0500 Body mass index (BMI) [Ratio] 44.39 kg/m2 Jeff Mudrakola DO Work Phone: [facility] [employer] 08-31-2024 09:55-0500 Body weight 124.74 kg Jeff Mudrakola DO Work Phone: [facility] [employer] 07-12-2024 14:38-0400 Diastolic blood pressure 83 mm[Hg] Eliu Maldonado MD Work Phone: [facility] [employer] 07-12-2024 14:38-0400 Heart rate 76 /min Eliu Maldonado MD Work Phone: [employer] 07-12-2024 14:38-0400 Systolic blood pressure 131 mm[Hg] Eliu Maldonado MD Work Phone: [facility] [employer] 07-12-2024 14:31-0400 Body height 167.6 cm Eliu Maldonado MD Work Phone: [facility] [employer] 07-12-2024 14:31-0400 Body mass index (BMI) [Ratio] 44.06 kg/m2 Eliu Maldonado MD Work Phone: [employer] 07-12-2024 14:31-0400 Body weight 123.83 kg Eliu Maldonado MD Work Phone: [facility] [employer] 07-12-2024 14:31-0400 SaO2% (BldA) [Mass fraction] 98 % Eliu Maldonado MD Work Phone: [facility] [employer] 07-11-2024 08:55-0400 Body height 165.1 cm Sudhir Keila DO Work Phone: [employer] 07-11-2024 08:55-0400 Body mass index (BMI) [Ratio] 45.43 kg/m2 Sudhir Keila DO Work Phone: [facility] [employer] 07-11-2024 08:55-0400 Body temperature 98.29 [degF] Sudhir Keila DO Work Phone: [facility] [employer] 07-11-2024 08:55-0400 Body weight 123.83 kg Sudhir Keila DO Work Phone: [employer] 07-11-2024 08:55-0400 Diastolic blood pressure 62 mm[Hg] Sudhir Keila DO Work Phone: [facility] [employer] 07-11-2024 08:55-0400 Heart rate 73 /min Sudhir Keila DO Work Phone: [facility] [employer] 07-11-2024 08:55-0400 SaO2% (BldA) [Mass fraction] 99 % Sudhir Pedraza DO Work Phone: [employer] 07-11-2024 08:55-0400 Systolic blood pressure 123 mm[Hg] Sudhir Keila DO Work Phone: [employer] 06-13-2024 10:21-0400 Body height 165.1 cm Martin Hyatt MD Work Phone: [employer] 06-13-2024 10:21-0400 Body mass index (BMI) [Ratio] 46.59 kg/m2 Martin Hyatt MD Work Phone: [employer] 06-13-2024 10:21-0400 Body weight 127.01 kg Martin Hyatt MD Work Phone: [employer] 06-13-2024 10:21-0400 Diastolic blood pressure 68 mm[Hg] Martin Hyatt MD Work Phone: [employer] 06-13-2024 10:21-0400 Heart rate 69 /min Martin Hyatt MD Work Phone: [employer] 06-13-2024 10:21-0400 Systolic blood pressure 115 mm[Hg] Martin Hyatt MD Work Phone: [employer] 06-12-2024 08:43-0400 Body height 167 cm Sudhir Pedraza DO Work Phone: [employer] 06-12-2024 08:43-0400 Body mass index (BMI) [Ratio] 45.5 kg/m2 Sudhir Keila DO Work Phone: [employer] 06-12-2024 08:43-0400 Body temperature 98.01 [degF] Sudhir Pedraza DO Work Phone: [employer] 06-12-2024 08:43-0400 Body weight 126.92 kg Sudhir Pedraza DO Work Phone: [facility] [employer] 06-12-2024 08:43-0400 Diastolic blood pressure 92 mm[Hg] Sudhir Pedraza DO Work Phone: [facility] [employer] 06-12-2024 08:43-0400 Heart rate 85 /min Sduhir Pedraza DO Work Phone: [facility] [employer] 06-12-2024 08:43-0400 SaO2% (BldA) [Mass fraction] 99 % Sudhir Pedraza DO Work Phone: [facility] [employer] 06-12-2024 08:43-0400 Systolic blood pressure 131 mm[Hg] Sudhir Pedraza DO Work Phone: [facility] [employer] 05-16-2024 08:57-0400 Body height 167 cm Scarlet Ivan SUSTAINABILITY COORDINATOR - REFINERY PROCESS ENGINEER Work Phone: [facility] [employer] 05-16-2024 08:57-0400 Body mass index (BMI) [Ratio] 45.37 kg/m2 Scarlet Frankias SUSTAINABILITY COORDINATOR - REFINERY PROCESS ENGINEER Work Phone: [facility] [employer] 05-16-2024 08:57-0400 Body temperature 98.1 [degF] Scarlet Frankias SUSTAINABILITY COORDINATOR - REFINERY PROCESS ENGINEER Work Phone: [facility] [employer] 05-16-2024 08:57-0400 Body weight 126.55 kg Scarlet Ivan SUSTAINABILITY COORDINATOR - REFINERY PROCESS ENGINEER Work Phone: [facility] [employer] 05-16-2024 08:57-0400 Diastolic blood pressure 86 mm[Hg] Scarlet Ivan SUSTAINABILITY COORDINATOR - REFINERY PROCESS ENGINEER Work Phone: [facility] [employer] 05-16-2024 08:57-0400 Heart rate 79 /min Scarlet Ivan SUSTAINABILITY COORDINATOR - REFINERY PROCESS ENGINEER Work Phone: [facility] [employer] 05-16-2024 08:57-0400 SaO2% (BldA) [Mass fraction] 99 % Scarlet Ivan SUSTAINABILITY COORDINATOR - REFINERY PROCESS ENGINEER Work Phone: [facility] [employer] 05-16-2024 08:57-0400 Systolic blood pressure 132 mm[Hg] Scarlet Love SUSTAINABILITY COORDINATOR - REFINERY PROCESS ENGINEER Work Phone: [facility] 04-12-2024 14:50-0400 Body height 168.9 cm Vonnie Garza MD Work Phone: [facility] 04-12-2024 14:50-0400 Body mass index (BMI) [Ratio] 43.24 kg/m2 Vonnie Garza MD Work Phone: [facility] 04-12-2024 14:50-0400 Body temperature 97.5 [degF] Vonnie Garza MD Work Phone: [facility] 04-12-2024 14:50-0400 Body weight 123.38 kg Vonnie Garza MD Work Phone: [facility] 04-12-2024 14:50-0400 Diastolic blood pressure 85 mm[Hg] Vonnie Garza MD Work Phone: [facility] 04-12-2024 14:50-0400 Heart rate 88 /min Vonnie Garza MD Work Phone: [facility] 04-12-2024 14:50-0400 Systolic blood pressure 150 mm[Hg] Vonnie Garza MD Work Phone: [facility] 02-27-2024 08:53-0400 Body height 167.64 cm MD Esperanza Moreno [facility] 02-27-2024 08:53-0400 Body mass index (BMI) [Ratio] 46 kg/m2 MD Esperanza Moreno [facility] 02-27-2024 08:53-0400 Body temperature 98 [degF] MD Esperanza Moreno [facility] 02-27-2024 08:53-0400 Body weight 129.33 kg MD Esperanza Moreno [facility] 02-27-2024 08:53-0400 Diastolic blood pressure 83 mm[Hg] MD Esperanza Moreno [facility] 02-27-2024 08:53-0400 Heart rate 82 /min [facility]-27-[facility]24 08:53-0400 Respiratory rate 18 /min [facility] 02-27-2024 08:53-0400 SaO2% (BldA) [Mass fraction] 10 % [facility] 02-27-2024 08:53-0400 Systolic blood pressure 125 mm[Hg] [facility] 01-27-2024 09:34-0400 Body height 168.91 cm [facility] 01-27-2024 09:34-0400 Body mass index (BMI) [Ratio] 45.1 kg/m2 [facility] 01-27-2024 09:34-0400 Body temperature 98.4 [degF] [facility] 01-27-2024 09:34-0400 Body weight 128.82 kg [facility] 01-27-2024 09:34-0400 Diastolic blood pressure 85 mm[Hg] [facility] 01-27-2024 09:34-0400 Heart rate 84 /min [facility] 01-27-2024 09:34-0400 SaO2% (BldA) [Mass fraction] 97 % [facility] 01-27-2024 09:34-0400 Systolic blood pressure 137 mm[Hg] [facility] 01-26-2024 12:58-0400 Body height 168.91 cm [facility] 01-26-2024 12:58-0400 Body mass index (BMI) [Ratio] 44.9 kg/m2 [facility] 01-26-2024 12:58-0400 Body weight 128.36 kg [facility] 01-26-2024 12:58-0400 Diastolic blood pressure 83 mm[Hg] [facility] 01-26-2024 12:58-0400 Heart rate 77 /min [facility] 01-26-2024 12:58-0400 Respiratory rate 18 /min MD Esperanza Moreno [facility] 01-26-2024 12:58-0400 SaO2% (BldA) [Mass fraction] 97 % MD Esperanza Moreno [facility] 01-26-2024 12:58-0400 Systolic blood pressure 134 mm[Hg] MD Esperanza Moreno [facility] 08-16-2023 10:43-0400 Body height 168.[address] Kendall Curry Work Phone: [facility] 08-16-2023 10:43-0400 Body mass index (BMI) [Ratio] 44.6 kg/m2 Dr. Kendall Curry Work Phone: [facility] 08-16-2023 10:43-0400 Body temperature 97.9 [degF] Dr. Kendall Curry Work Phone: [facility] 08-16-2023 10:43-0400 Body weight 127.[address] Kendall Curry Work Phone: [facility] 08-16-2023 10:43-0400 Diastolic blood pressure 86 mm[Hg] Dr. Kendall Curry Work Phone: [facility] 08-16-2023 10:43-0400 Heart rate 87 /min Dr. Kendall Curry Work Phone: [facility] 08-16-2023 10:43-0400 Respiratory rate 16 /min Dr. Kendall Curry Work Phone: [facility] 08-16-2023 10:43-0400 SaO2% (BldA) [Mass fraction] 99 % Dr. Kendall Curry Work Phone: [facility] 08-16-2023 10:43-0400 Systolic blood pressure 126 mm[Hg] Dr. Kendall Curry Work Phone: [facility] 08-02-2023 10:30-0400 Body weight 127.[address] Kendall Curry Work Phone: [facility] 08-02-2023 07:42-0400 Body height 167.64 cm Esperanza Moreno MD Work Phone: [facility]; [facility] Work Phone: 08-02-2023 07:42-0400 Body mass index (BMI) [Ratio] 45.35 kg/m2 Esperanza Moreno MD Work Phone: [facility]; [facility] Work Phone: 08-02-2023 07:42-0400 Body surface area Derived from formula 2.31 m2 Esperanza Moreno MD Work Phone: [facility]; [facility] Work Phone: 08-02-2023 07:42-0400 Body temperature 97.9 [degF] Esperanza Moreno MD Work Phone: [facility]; [facility] Work Phone: Comment on above: Method: Oral 08-02-2023 07:42-0400 Body weight 127.46 kg Esperanza Moreno MD Work Phone: [facility]; [facility] Work Phone: 08-02-2023 07:42-0400 Diastolic blood pressure 82 mm[Hg] Esperanza Moreno MD Work Phone: [facility]; [facility] Work Phone: Comment on above: Patient Position: Sitting; Cuff Location : Left Arm; Cuff Size: Standard 08-02-2023 07:42-0400 Heart rate 85 /min Esperanza Moreno MD Work Phone: [facility]; [facility] Work Phone: Comment on above: Pattern: Regular 08-02-2023 07:42-0400 SaO2% (BldA) [Mass fraction] 98 % Esperanza Moreno MD Work Phone: [facility]; [facility] Work Phone: Comment on above: Room air 08-02-2023 07:42-0400 Systolic blood pressure 130 mm[Hg] Esperanza Moreno MD Work Phone: [facility]; [facility] Work Phone: Comment on above: Patient Position: Sitting; Cuff Location : Left Arm; Cuff Size: Standard 07-27-2023 12:00-0400 Body mass index (BMI) [Ratio] 45.3 kg/m2 Dr. Kendall Curry Work Phone: [facility] 07-27-2023 12:00-0400 Body weight 127.[address] Kendall Curry Work Phone: [facility] 07-27-2023 12:00-0400 Diastolic blood pressure 84 mm[Hg] Dr. Kendall Curry Work Phone: [facility] 07-27-2023 12:00-0400 Systolic blood pressure 142 mm[Hg] Dr. Kendall Curry Work Phone: [facility] 07-19-2023 10:30-0400 Body height 168.[address] Kendall Curry Work Phone: [facility] 07-19-2023 10:30-0400 Body weight 126.[address] Kendall Curry Work Phone: [facility] 06-21-2023 09:09-0400 Body height 167.64 cm Liudmila Mendez MA [facility]; [facility] Work Phone: 06-21-2023 09:09-0400 Body mass index (BMI) [Ratio] 43.62 kg/m2 Liudmila Mendez MA [facility]; [facility] Work Phone: 06-21-2023 09:09-0400 Body surface area Derived from formula 2.27 m2 Liudmila Mendez MA [facility]; [facility] Work Phone: 06-21-2023 09:09-0400 Body temperature 96.5 [degF] Liudmila Mendez MA [facility]; [facility] Work Phone: 06-21-2023 09:09-0400 Body weight 122.59 kg Liudmila Mendez MA [facility]; [facility] Work Phone: 06-21-2023 09:09-0400 Diastolic blood pressure 80 mm[Hg] Liudmila Mendez MA [facility]; [facility] Work Phone: Comment on above: Patient Position: Sitting; Cuff Location : Left Arm; Cuff Size: Standard 06-21-2023 09:09-0400 Heart rate 79 /min Liudmila Mendez MA [facility]; [facility] Work Phone: Comment on above: Pattern: Regular 06-21-2023 09:09-0400 SaO2% (BldA) [Mass fraction] 99 % Liudmila Mendez MA [facility]; [facility] Work Phone: Comment on above: Room air 06-21-2023 09:09-0400 Systolic blood pressure 130 mm[Hg] Liudmila Mendez MA [facility]; [facility] Work Phone: Comment on above: Patient Position: Sitting; Cuff Location : Left Arm; Cuff Size: Standard 06-14-2023 13:32-0400 Body mass index (BMI) [Ratio] 49.8 kg/m2 Dr. Kendall Curry Work Phone: [facility] 06-14-2023 13:32-0400 Body temperature 98.3 [degF] Dr. Kendall Curry Work Phone: [facility] 06-14-2023 13:32-0400 Body weight 127.[address] Kendall Curry Work Phone: [facility] 06-14-2023 13:32-0400 Diastolic blood pressure 82 mm[Hg] Dr. Kendall Curry Work Phone: [facility] 06-14-2023 13:32-0400 Heart rate 82 /min Dr. Kendall Curry Work Phone: [facility] 06-14-2023 13:32-0400 Respiratory rate 18 /min Dr. Kendall Curry Work Phone: [facility] 06-14-2023 13:32-0400 SaO2% (BldA) [Mass fraction] 98 % Dr. Kendall Curry Work Phone: [facility] 06-14-2023 13:32-0400 Systolic blood pressure 142 mm[Hg] Dr. Kendall Curry Work Phone: [facility] 05-05-2023 07:44-0400 Body height 167.64 cm Jennifer [facility]; [facility] Work Phone: 05-05-2023 07:44-0400 Body mass index (BMI) [Ratio] 43.62 kg/m2 Jennifer Lombardi LPN [facility]; [facility] Work Phone: 05-05-2023 07:44-0400 Body surface area Derived from formula 2.27 m2 Jennifer Lombardi LPN [facility]; [facility] Work Phone: 05-05-2023 07:44-0400 Body temperature 98.3 [degF] Jennifer Lombardi LPN [facility]; [facility] Work Phone: 05-05-2023 07:44-0400 Body weight 122.59 kg Jennifer Lombardi LPN [facility]; [facility] Work Phone: 05-05-2023 07:44-0400 Diastolic blood pressure 90 mm[Hg] Jennifer Lombardi LPN [facility]; [facility] Work Phone: Comment on above: Patient Position: Sitting; Cuff Location : Left Arm; Cuff Size: Standard 05-05-2023 07:44-0400 Heart rate 83 /min Jennifer Lombardi LPN [facility]; [facility] Work Phone: Comment on above: Pattern: Regular 05-05-2023 07:44-0400 Respiratory rate 16 /min Jennifer Lombardi [facility]; [facility] Work Phone: Comment on above: Pattern: Unlabored 05-05-2023 07:44-0400 SaO2% (BldA) [Mass fraction] 98 % Jennifer Lombardi [facility]; [facility] Work Phone: Comment on above: Room air 05-05-2023 07:44-0400 Systolic blood pressure 152 mm[Hg] Jennifer Lombardi [facility]; [facility] Work Phone: Comment on above: Patient Position: Sitting; Cuff Location : Left Arm; Cuff Size: Standard 01-31-2023 14:19-0400 Body height 167.64 cm Jennifer Lombardi [facility]; [facility] Work Phone: 01-31-2023 14:19-0400 Body mass index (BMI) [Ratio] 43.62 kg/m2 Jennifer Lombardi [facility]; [facility] Work Phone: 01-31-2023 14:19-0400 Body surface area Derived from formula 2.27 m2 Jennifer Lombardi [facility]; [facility] Work Phone: 01-31-2023 14:19-0400 Body temperature 98.1 [degF] Jennifer Lombardi [facility]; [facility] Work Phone: 01-31-2023 14:19-0400 Body weight 122.59 kg Jennifer Lombardi [facility]; [facility] Work Phone: 01-31-2023 14:19-0400 Diastolic blood pressure 82 mm[Hg] Jennifer Lombardi [facility]; [facility] Work Phone: Comment on above: Patient Position: Sitting; Cuff Location : Left Arm; Cuff Size: Standard 01-31-2023 14:19-0400 Heart rate 58 /min Jnenifer Lombardi LPN [facility]; [facility] Work Phone: Comment on above: Pattern: Regular 01-31-2023 14:19-0400 Respiratory rate 16 /min Jennifer Maria C [facility]; [facility] Work Phone: Comment on above: Pattern: Unlabored 01-31-2023 14:19-0400 SaO2% (BldA) [Mass fraction] 96 % Jennifer Maria C [facility]; [facility] Work Phone: Comment on above: Room air 01-31-2023 14:19-0400 Systolic blood pressure 124 mm[Hg] Jennifer Lombardi LPN [facility]; [facility] Work Phone: Comment on above: Patient Position: Sitting; Cuff Location : Left Arm; Cuff Size: Standard 12-23-2022 09:06-0500 Body height 160.[address] Kendall Curry Work Phone: [facility] 12-23-2022 09:06-0500 Body mass index (BMI) [Ratio] 47.8 kg/m2 Dr. Kendall Curry Work Phone: [facility] 12-23-2022 09:06-0500 Body weight 122.[address] Kendall Curry Work Phone: [facility] 12-23-2022 09:06-0500 Diastolic blood pressure 78 mm[Hg] Dr. Kendall Curry Work Phone: [facility] 12-23-2022 09:06-0500 Heart rate 74 /min Dr. Kendall Curry Work Phone: [facility] 12-23-2022 09:06-0500 Respiratory rate 18 /min Dr. Kendall Curry Work Phone: [facility] 12-23-2022 09:06-0500 SaO2% (BldA) [Mass fraction] 100 % Dr. Kendall Curry Work Phone: [facility] 12-23-2022 09:06-0500 Systolic blood pressure 127 mm[Hg] Dr. Kendall Curry Work Phone: [facility] 12-21-2022 08:03-0500 Body mass index (BMI) [Ratio] 43.1 kg/m2 Dr. Kendall Curry Work Phone: [facility] 12-21-2022 08:03-0500 Body temperature 96.9 [degF] Dr. Kendall Curry Work Phone: [facility] 12-21-2022 08:03-0500 Body weight 123.[address] Kendall Curry Work Phone: [facility] 12-21-2022 08:03-0500 Diastolic blood pressure 84 mm[Hg] Dr. Kendall Curry Work Phone: [facility] 12-21-2022 08:03-0500 Heart rate 100 /min Dr. Kendall Curry Work Phone: [facility] 12-21-2022 08:03-0500 Respiratory rate 18 /min Dr. Kendall Curry Work Phone: [facility] 12-21-2022 08:03-0500 SaO2% (BldA) [Mass fraction] 94 % Dr. Kendall Curry Work Phone: [facility] 12-21-2022 08:03-0500 Systolic blood pressure 137 mm[Hg] Dr. Kendall Curry Work Phone: [facility] 12-14-2022 08:38-0500 Body height 167.[address] Kendall Curry Work Phone: [facility] 12-14-2022 08:38-0500 Body mass index (BMI) [Ratio] 43 kg/m2 Dr. Kendall Curry Work Phone: [facility] 12-14-2022 08:38-0500 Body temperature 97.6 [degF] Dr. Kendall Curry Work Phone: [facility] 12-14-2022 08:38-0500 Body weight 121.[address] Kendall Curry Work Phone: [facility] 12-14-2022 08:38-0500 Diastolic blood pressure 83 mm[Hg] Dr. Kendall Curry Work Phone: [facility] 12-14-2022 08:38-0500 Heart rate 83 /min Dr. Kendall Curry Work Phone: [facility] 12-14-2022 08:38-0500 Respiratory rate 16 /min Dr. Kendall Curry Work Phone: [facility] 12-14-2022 08:38-0500 SaO2% (BldA) [Mass fraction] 100 % Dr. Kendall Curry Work Phone: [facility] 12-14-2022 08:38-0500 Systolic blood pressure 136 mm[Hg] Dr. Kendall Curry Work Phone: [facility] 12-10-2022 09:01-0500 Body mass index (BMI) [Ratio] 46.9 kg/m2 Dr. Kendall Curry Work Phone: [facility] 12-10-2022 09:01-0500 Body weight 120.[address] Kendall Curry Work Phone: [facility] 12-10-2022 09:01-0500 Diastolic blood pressure 85 mm[Hg] Dr. Kendall Curry Work Phone: [facility] 12-10-2022 09:01-0500 Heart rate 82 /min Dr. Kendall Curry Work Phone: [facility] 12-10-2022 09:01-0500 SaO2% (BldA) [Mass fraction] 98 % Dr. Kendall Curry Work Phone: [facility] 12-10-2022 09:01-0500 Systolic blood pressure 136 mm[Hg] Dr. Kendall Curry Work Phone: [facility] 12-06-2022 08:25-0500 Body mass index (BMI) [Ratio] 43 kg/m2 Dr. Kendall Curry Work Phone: [facility] 12-06-2022 08:25-0500 Body temperature 97.4 [degF] Dr. Kendall Curry Work Phone: [facility] 12-06-2022 08:25-0500 Body weight 121.[address] Kendall Curry Work Phone: [facility] 12-06-2022 08:25-0500 Diastolic blood pressure 78 mm[Hg] Dr. Kendall Curry Work Phone: [facility] 12-06-2022 08:25-0500 Heart rate 85 /min Dr. Kendall Curry Work Phone: [facility] 12-06-2022 08:25-0500 Respiratory rate 14 /min Dr. Kendall Curry Work Phone: [facility] 12-06-2022 08:25-0500 SaO2% (BldA) [Mass fraction] 99 % Dr. Kendall Curry Work Phone: [facility] 12-06-2022 08:25-0500 Systolic blood pressure 124 mm[Hg] Dr. Kendall Curry Work Phone: [facility] 06-03-2022 14:56-0400 Body height 167.[address] Kendall Curry Work Phone: [facility] Work Phone: 06-03-2022 14:56-0400 Body mass index (BMI) [Ratio] 41.3 kg/m2 Dr. Kendall Curry Work Phone: [facility] Work Phone: 06-03-2022 14:56-0400 Body temperature 98.1 [degF] Dr. Kendall Curry Work Phone: [facility] Work Phone: 06-03-2022 14:56-0400 Body weight 116.[address] Kendall Curry Work Phone: [facility] Work Phone: 06-03-2022 14:56-0400 Diastolic blood pressure 82 mm[Hg] Dr. Kendall Curry Work Phone: [facility] Work Phone: 06-03-2022 14:56-0400 Heart rate 92 /min Dr. Kendall Curry Work Phone: [facility] Work Phone: 06-03-2022 14:56-0400 Respiratory rate 18 /min Dr. Kendall Curry Work Phone: [facility] Work Phone: 06-03-2022 14:56-0400 SaO2% (BldA) [Mass fraction] 97 % Dr. Kendall Curry Work Phone: [facility] Work Phone: 06-03-2022 14:56-0400 Systolic blood pressure 134 mm[Hg] Dr. Kendall Curry Work Phone: [facility] Work Phone: 05-18-2022 14:04-0400 Body height 167.[address] Kendall Curry Work Phone: [facility] Work Phone: 05-18-2022 13:56-0400 Body mass index (BMI) [Ratio] 41.6 kg/m2 Dr. Kendall Curry Work Phone: [facility] Work Phone: 05-18-2022 13:56-0400 Body weight 117.[address] Kendall Curry Work Phone: [facility] Work Phone: 05-18-2022 13:56-0400 Diastolic blood pressure 80 mm[Hg] Dr. Kendall Curry Work Phone: [facility] Work Phone: 05-18-2022 13:56-0400 Systolic blood pressure 100 mm[Hg] Dr. Kendall Curry Work Phone: [facility] Work Phone: 05-07-2022 10:57-0400 Body mass index (BMI) [Ratio] 41.3 kg/m2 Dr. Kendall Curry Work Phone: [facility] Work Phone: 05-07-2022 10:57-0400 Body temperature 96.6 [degF] Dr. Kendall Curry Work Phone: [facility] Work Phone: 05-07-2022 10:57-0400 Body weight 116.[address] Kendall Curry Work Phone: [facility] Work Phone: 05-07-2022 10:57-0400 Diastolic blood pressure 84 mm[Hg] Dr. Kendall Curry Work Phone: [facility] Work Phone: 05-07-2022 10:57-0400 Heart rate 90 /min Dr. Kendall Curry Work Phone: [facility] Work Phone: 05-07-2022 10:57-0400 Respiratory rate 18 /min Dr. Kendall Curry Work Phone: [facility] Work Phone: 05-07-2022 10:57-0400 SaO2% (BldA) [Mass fraction] 98 % Dr. Kendall Curry Work Phone: [facility] Work Phone: 05-07-2022 10:57-0400 Systolic blood pressure 140 mm[Hg] Dr. Kendall Curry Work Phone: [facility] Work Phone: 05-04-2022 12:49-0400 Body mass index (BMI) [Ratio] 41.4 kg/m2 Dr. Kendall Curry Work Phone: [facility] Work Phone: 05-04-2022 12:49-0400 Body temperature 99.3 [degF] Dr. Kendall Curry Work Phone: [facility] Work Phone: 05-04-2022 12:49-0400 Body weight 116.[address] Kendall Curry Work Phone: [facility] Work Phone: 05-04-2022 12:49-0400 Diastolic blood pressure 84 mm[Hg] Dr. Kendall Curry Work Phone: [facility] Work Phone: 05-04-2022 12:49-0400 Heart rate 84 /min Dr. Kendall Curry Work Phone: [facility] Work Phone: 05-04-2022 12:49-0400 Respiratory rate 18 /min Dr. Kendall Curry Work Phone: [facility] Work Phone: 05-04-2022 12:49-0400 SaO2% (BldA) [Mass fraction] 100 % Dr. Kendall Curry Work Phone: [facility] Work Phone: 05-04-2022 12:49-0400 Systolic blood pressure 141 mm[Hg] Dr. Kendall Curry Work Phone: [facility] Work Phone: 04-22-2022 10:51-0400 Body mass index (BMI) [Ratio] 41 kg/m2 Dr. Kendall Curry Work Phone: [facility] Work Phone: 04-22-2022 10:51-0400 Body weight 115.[address] Kendall Curry Work Phone: [facility] Work Phone: 04-22-2022 10:51-0400 Diastolic blood pressure 83 mm[Hg] Dr. Kendall Curry Work Phone: [facility] Work Phone: 04-22-2022 10:51-0400 Heart rate 88 /min Dr. Kendall Curry Work Phone: [facility] Work Phone: 04-22-2022 10:51-0400 SaO2% (BldA) [Mass fraction] 98 % Dr. Kendall Curry Work Phone: [facility] Work Phone: 04-22-2022 10:51-0400 Systolic blood pressure 134 mm[Hg] Dr. Kendall Curry Work Phone: [facility] Work Phone: Encounters Encounter Date Encounter Type Care Provider Facility Start: 09-17-2025 ambulatory Keny Friend Facility :[facility] Start: 08-13-[address] Awais Kelley MD -[facility] Start: 08-13-2025 End: 08-13-[address] Joyce Kelley MD -[facility] Work Phone: Start: 08-13-2025 End: 08-13-2025 Patient encounter procedure Keny Jason -[facility] Work Phone: Start: 08-13-2025 End: 08-13-2025 ambulatory Keny Gomez Facility:[facility] Start: 08-05-2025 End: 08-06-2025 Telephone encounter Eliu Maldonado MD Work Phone: [facility] Comment on above: Prior Authorization (PA required--ct chest ) Start: 07-30-2025 End: 07-30-2025 Orders Only Eliu Maldonado MD Work Phone: [facility] Lung Nodule [facility] Comment on above: Lung nodule (Primary Dx) Start: 07-29-2025 End: 07-29-2025 Telephone encounter Eliu Maldonado MD Work Phone: [facility] Lung Nodule [facility] Start: 07-18-2025 End: 07-18-2025 Subsequent hospital visit by physician Sudhir Pedraza DO Work Phone: [facility] Comment on above: Lung nodule Start: 07-18-2025 End: 07-18-2025 ambulatory [facility] Start: 06-13-2025 End: 06-13-2025 Patient encounter status Martin Hyatt MD Work Phone: [facility] Work Phone: Start: 06-13-2025 End: 06-13-2025 Periodic preventive med est patient 40-64yrs Martin Hyatt MD Work Phone: [facility] Obstetrics and Gynecology - [facility] Comment on above: Encounter for gyneco logical examination without abnormal finding (Primary Dx) Start: 06-13-2025 End: 06-13-2025 ambulatory MARTIN HYATT [facility] Start: 06-13-2025 End: 06-13-2025 Encounter for gynecological examination (general) (routine) without abnormal findings MARTIN HYATT [facility] Start: 06-12-2025 End: 08-12-2025 Follow-up encounter Ashley Sanchezmikel LAROIS - REFINERY PROCESS ENGINEER Work Phone: [facility] Breast [facility] Comment on above: Bilateral breast MR with and without contrast Start: 06-12-2025 End: 06-12-2025 Subsequent hospital visit by physician Vonnie Garza MD Work Phone: [facility] Comment on above: At high risk for elijah ast cancer; Family history of breast cancer Start: 06-12-2025 End: 06-12-2025 ambulatory SUDHIR PEDRAZA [facility] Start: 05-30-2025 End: 05-30-2025 Prevent med residential counselor&/risk factor redj spx 30 min Ashley Sanchezppard SUSTAINABILITY COORDINATOR - REFINERY PROCESS ENGINEER Work Phone: [facility] Comment on above: Increased risk of br east cancer (Primary Dx); Family history of breast cancer; Encounter for examination and observation for other specified reasons; Encounter for screening mammogram for breast cancer; History of skin cancer Start: 05-30-2025 End: 05-30-2025 ambulatory ASHLEY ALEXANDER [facility] Start: 05-28-2025 End: 05-28-2025 Telephone encounter Omi Krueger MD Work Phone: [facility] Gynecologic Oncology [facility] Start: 05-28-2025 End: 05-28-2025 Office consultation new/estab patient 60 min Demetri Cartagena MD Work Phone: Division of Surgical Oncology Comment on above: Multinodular goiter (Primary Dx) Start: 05-28-2025 ambulatory DEMETRI CARTAGENA Facility:[facility] Start: 05-22-2025 End: 05-22-2025 Office outpatient visit 10 minutes Martin Hyatt MD Work Phone: [facility] Obstetrics and Gynecology - [facility] Comment on above: Michael tumor of ova ry, right (Primary Dx) Start: 05-22-2025 End: 05-22-2025 ambulatory MARTIN HYATT [facility] Start: 05-15-2025 End: 05-15-2025 Patient encounter procedure Sudhir Pedraza DO Work Phone: [facility] [employer] 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; Nonalcoholic steatohepatitis (HUGGINS) Start: 05-15-2025 End: 05-15-2025 [facility] Start: 05-15-2025 End: 05-15-2025 Encounter for general adult medical examination without abnormal findings [facility] Start: 05-10-2025 End: 07-10-2025 Follow-up encounter Ari Richards CNP Work Phone: [facility] Breast [place] [facility] Comment on above: Bilateral screening mammogram with tomosynthesis Start: 05-10-2025 End: 05-10-2025 Subsequent hospital visit by physician Vonnie Garza MD Work Phone: [facility] Comment on above: Encounter for screen ing mammogram for malignant neoplasm of breast Start: 05-10-2025 End: 05-10-2025 ambulatory SUDHIR KEILA [facility] Start: 02-25-2025 End: 02-25-2025 Documentation procedure Alban Mercedes PT [facility] Topher arellano at [facility] Comment on above: PT Discharge Start: 02-25-2025 ambulatory SELF SELF Facility:[facility] Start: 02-19-2025 End: 02-19-2025 Subsequent hospital visit by physician Sudhir Pedraza DO Work Phone: [facility] Comment on above: Thyroid nodule Start: 02-19-2025 End: 02-19-2025 [facility] Start: 02-01-2025 End: 02-01-2025 Telephone encounter Eliu Maldonado MD Work Phone: [facility] Start: 01-31-2025 End: 01-31-2025 Office outpatient visit 10 minutes Eliu Maldonado MD Work Phone: [facility] Pulmonary [facility] Comment on above: Lung nodule (Primary Dx); Chronic respiratory failure with hypoxia (HCC); LINDSAY treated with BiPAP; Class 3 severe obesity due to excess calories without serious comorbidity with body mass index (BMI) of 40.0 to 44.9 in adult (HCC) Start: 01-31-2025 End: 01-31-2025 ambulatory [facility] Start: 01-21-2025 End: 01-21-2025 Subsequent hospital visit by physician Sudhir Pedraza DO Work Phone: [facility] Comment on above: Subcutaneous nodule of right foot Multinodular goiter Start: 01-21-2025 End: 01-21-2025 [facility] Start: 01-18-2025 End: 01-18-2025 ambulatory Eliu Jackson MD Work Phone: [facility] Therapy at [facility] Comment on above: Muscle strain of rig ht scapular region, initial encounter Start: 01-17-2025 End: 01-17-2025 Office outpatient new 30 minutes Eliu Jackson MD Work Phone: [facility] Orthopedics and Sports Medicine [facility] Comment on above: Muscle strain of rig ht scapular region, initial encounter (Primary Dx); Acute pain of right shoulder; Pain of right scapula Start: 01-17-2025 End: 01-17-2025 Subsequent hospital visit by physician Eliu Jackson MD Work Phone: [facility] Comment on above: Acute pain of right shoulder Lung nodule Start: 01-17-2025 End: 01-17-2025 ambulatory ELIU MANUEL [facility] Start: 01-15-2025 End: 01-15-2025 Office outpatient visit 40 minutes Sudhirgilda Pedraza DO Work Phone: [facility] Comment on above: Multinodular goiter (Primary Dx); Subcutaneous nodule of right foot; Pain of right scapula Start: 01-15-2025 End: 01-15-2025 [facility] Start: 12-24-2024 End: 12-25-2024 Refill Sudhir Keila DO Work Phone: [facility] Start: 12-23-2024 End: 12-24-2024 Refill Sudhir Keila DO Work Phone: [facility] Start: 11-29-2024 End: 11-29-2024 Office outpatient visit 25 minutes Vonnie Garza MD Work Phone: [facility] [place] Comment on above: At high risk for elijah ast cancer (Primary Dx); Family history of breast cancer; Breast screening Start: 11-29-2024 End: 11-29-2024 [facility] Start: 11-27-2024 End: 11-27-2024 Office outpatient visit 40 minutes Sudhir Keila DO Work Phone: [facility] Comment on above: Nava's esophagus without dysplasia (Primary Dx); Gastroesophageal reflux disease without esophagitis; 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; Nonalcoholic steatohepatitis (HUGGINS); Obstructive sleep apnea syndrome; Primary hypertension; History of esophageal stricture; Michael tumor of right ovary; History of thrombocytopenia; Multinodular goiter; Mitral valve problem; Morbid obesity (HCC); Benign cyst of right kidney Start: 11-27-2024 End: 11-27-2024 [facility] Start: 11-20-2024 End: 11-20-2024 Documentation procedure Cierra Silva RN [facility] [place] Comment on above: Care Coordination (L toshia Nodule Review Conference Recommendations /) Start: 11-20-2024 End: 11-21-2024 Telephone encounter Eliu Maldonado MD Work Phone: [facility] Comment on above: Test Scheduling (CT Chest Authorization) Care Coordination (L toshia Nodule Review Conference Recs ) Start: 11-14-2024 End: 11-14-2024 Office outpatient visit 15 minutes Eliu Maldonado MD Work Phone: [facility] Pulmonary [facility] Comment on above: Lung nodule (Primary Dx); LINDSAY treated with BiPAP; Chronic respiratory failure with hypoxia (HCC); Class 3 severe obesity due to excess calories without serious comorbidity with body mass index (BMI) of 40.0 to 44.9 in adult ([facility]) Start: 11-14-2024 End: 11-14-2024 ambulatory [facility] Start: 10-19-2024 End: 10-19-2024 Subsequent hospital visit by physician Elui Maldonado MD Work Phone: [facility] Comment on above: Lung nodule Start: 10-19-2024 End: 10-19-2024 ambulatory [facility] Start: 10-16-2024 End: 10-16-2024 [facility] Start: 10-16-2024 End: 10-16-2024 Subsequent hospital visit by physician Sunita White DO Work Phone: [facility] Comment on above: Nasal polyp, unspeci fied Start: 10-11-2024 End: 01-10-2025 Transcribe Orders Sunita White DO Work Phone: [facility] Comment on above: Nasal polyp, unspeci fied (Primary Dx) Start: 10-08-2024 End: 10-08-2024 Office outpatient visit 25 minutes Eliu Maldonado MD Work Phone: [facility] [place] Comment on above: Lung nodule (Primary Dx); LINDSAY treated with BiPAP; Nocturnal hypoxia; Class 3 severe obesity due to excess calories without serious comorbidity with body mass index (BMI) of 40.0 to 44.9 in adult (HCC) Start: 10-08-2024 End: 10-08-2024 ambulatory [facility] Start: 10-08-2024 End: 10-08-2024 ambulatory SUDHIR PEDRAZA [facility] Start: 10-08-2024 End: 10-08-2024 Office outpatient visit 15 minutes Sudhir Pedraza DO Work Phone: [facility] Comment on above: Shoulder blade pain (Primary Dx) Start: 09-17-2024 End: 09-17-2024 Telephone encounter Eliu Maldonado MD Work Phone: [facility] Lung Nodule [facility] Start: 09-07-2024 End: 09-07-2024 Subsequent hospital visit by physician Sudhir Pedraza DO Work Phone: [facility] Comment on above: Vaccination not fry ied out because of patient refusal; Dizziness; CO2 retention; Unintentional weight loss; Abdominal bloating; LUCERO (dyspnea on exertion); Chest pain, unspecified type Start: 09-07-2024 End: 09-07-2024 ambulatory SUDHIR PEDRAZA [facility] Start: 09-07-2024 End: 09-14-2024 Telephone encounter Sudhir Pedraza DO Work Phone: [facility] Comment on above: Other Start: 09-06-2024 End: 09-06-2024 Office outpatient visit 25 minutes Sudhir Pedraza DO Work Phone: [facility] Comment on above: Dizziness (Primary D x); Vaccination not carried out because of patient refusal; CO2 retention; Unintentional weight loss; Abdominal bloating; LUCERO (dyspnea on exertion); Chest pain, unspecified type Start: 09-06-2024 End: 09-06-2024 [facility] Start: 09-03-2024 End: 10-04-2024 Telephone encounter Eliu Maldonado MD Work Phone: [facility] Lung Nodule [facility] Comment on above: Referral ER Follow-up Start: 08-31-2024 End: 08-31-2024 Emergency department patient visit Jeff Boykin DO Work Phone: [facility] Comment on above: Dizziness (Primary D x); History of sleep apnea Start: 08-21-2024 End: 08-21-2024 Telephone encounter Eliu Maldonado MD Work Phone: [facility] Lung Nodule Clinic [facility] Comment on above: Other (Oxymetry orde r) Start: 08-20-2024 End: 08-20-2024 ambulatory [facility] Start: 08-20-2024 End: 08-20-2024 Office outpatient visit 15 minutes Eliu Maldonado MD Work Phone: [facility] Lung Nodule [facility] Comment on above: LINDSAY treated with BiP AP (Primary Dx); Shortness of breath; Class 3 severe obesity due to excess calories without serious comorbidity with body mass index (BMI) of 40.0 to 44.9 in adult ([facility]) Start: 07-12-2024 End: 07-12-2024 Office outpatient new 45 minutes Eliu Maldonado MD Work Phone: [facility] Pulmonary [facility] Comment on above: Shortness of breath (Primary Dx); LINDSAY treated with BiPAP; Class 3 severe obesity due to excess calories without serious comorbidity with body mass index (BMI) of 40.0 to 44.9 in adult ([facility]) Start: 07-11-2024 End: 07-11-2024 Office outpatient visit 25 minutes Sudhir Pedraza DO Work Phone: [facility] Care [facility] Comment on above: Class 3 severe obesi ty due to excess calories without serious comorbidity with body mass index (BMI) of 45.0 to 49.9 in adult ([facility]) (Primary Dx); Vaccination not carried out because of patient refusal; Dyspnea on exertion Start: 06-18-2024 End: 07-12-2024 Telephone encounter Chuck Jung MD Work Phone: [facility] Sleep Medicine - [facility] Comment on above: Appointment Request Start: 06-13-2024 End: 06-13-2024 Initial preventive medicine new patient 40-64yrs Martin Hyatt MD Work Phone: [facility] Obstetrics & Gynecology Comment on above: Encounter for gyneco logical examination without abnormal finding (Primary Dx); Michael tumor of ovary, right Start: 06-13-2024 End: 06-13-2024 Patient encounter status Martin Hyatt MD Work Phone: [facility] [employer] Work Phone: Start: 06-12-2024 End: 06-12-2024 Office outpatient visit 25 minutes Sudhir Keila DO Work Phone: [facility] Family Medicine Comment on above: Class 3 severe obesi ty due to excess calories without serious comorbidity with body mass index (BMI) of 45.0 to 49.9 in adult (HCC) (Primary Dx); Fatty liver; Prediabetes Start: 06-12-2024 End: 06-12-2024 Office outpatient visit 40 minutes Sudhir Keila DO Work Phone: [facility] Family Medicine Comment on above: Class 3 severe obesi ty due to excess calories without serious comorbidity with body mass index (BMI) of 45.0 to 49.9 in adult (HCC) (Primary Dx); Fatty liver; Prediabetes Start: 05-17-2024 End: 05-17-2024 Subsequent hospital visit by physician Vonnie Garza MD Work Phone: [facility] Comment on above: At high risk for elijah ast cancer; Breast skin changes Start: 05-16-2024 End: 05-16-2024 Initial preventive medicine new patient 40-64yrs Scarlet Love SUSTAINABILITY COORDINATOR - REFINERY PROCESS ENGINEER Work Phone: [facility] Family Medicine Comment on above: Screening for lipid disorders (Primary Dx); Class 3 severe obesity due to excess calories without serious comorbidity with body mass index (BMI) of 45.0 to 49.9 in adult (HCC); Acquired hypothyroidism; Essential hypertension; Encounter for medical examination to establish care; Thrombocytopenia (HCC); Obstructive sleep apnea syndrome; Nonalcoholic steatohepatitis (HUGGINS); Gastroesophageal reflux disease without esophagitis Start: 05-16-2024 End: 05-16-2024 Office outpatient new 45 minutes Scarlet Frankias SUSTAINABILITY COORDINATOR - REFINERY PROCESS ENGINEER Work Phone: [facility] Family Medicine Comment on above: Screening for lipid disorders (Primary Dx); Class 3 severe obesity due to excess calories without serious comorbidity with body mass index (BMI) of 45.0 to 49.9 in adult (HCC); Acquired hypothyroidism; Essential hypertension; Encounter for medical examination to establish care; Thrombocytopenia (HCC); Obstructive sleep apnea syndrome; Nonalcoholic steatohepatitis (HUGGINS); Gastroesophageal reflux disease without esophagitis Start: 05-16-2024 End: 05-16-2024 Patient encounter status Scarlet DoAnju Love SUSTAINABILITY COORDINATOR - REFINERY PROCESS ENGINEER Work Phone: [facility] Start: 04-19-2024 End: 04-19-2024 Subsequent hospital visit by physician Vonnie Garza MD Work Phone: [facility] Comment on above: Abnormal finding on breast imaging Breast skin changes Start: 04-17-2024 End: 04-17-2024 Telephone encounter Vonnie Garza MD Work Phone: [facility] Start: 04-13-2024 End: 04-13-2024 Telephone encounter Shruthi Mcwilliams MD Work Phone: [facility] Internal Medicine Comment on above: New Patient Start: 04-12-2024 End: 04-12-2024 Office outpatient visit 25 minutes Vonnie Garza MD Work Phone: [facility] Comment on above: At high risk for elijah ast cancer (Primary Dx); Breast skin changes; Occasionally has difficulty accessing primary care provider; Family history of breast cancer; Skin cancer of anterior chest Start: 04-09-2024 Orders Only Vonnie navas MD Work Phone: [facility] General Surgery Comment on above: Abnormal finding on breast imaging (Primary Dx) Pap Test Start: 04-06-2024 Telephone encounter Antoinette Carter MD Work Phone: OB/Gynecology Comment on above: Orders Start: 04-06-2024 End: 04-06-2024 ambulatory Annalise Nieto MD Work Phone: OB/Gynecology Start: 04-06-2024 End: 04-06-2024 Patient encounter procedure Annalise Nieto MD Work Phone: OB/Gynecology Start: 04-04-2024 End: 04-04-2024 Patient encounter procedure Ultrasound [employer] [facility] Work Phone: OB/Gynecology Start: 04-04-2024 End: 04-04-2024 ambulatory MATIAS ALVAREZ OB/Gynecology Comment on above: Canceled (Pt cx: Res cheduled) Start: 04-02-2024 Orders Only Vonnie navas MD Work Phone: [facility] General Surgery Comment on above: Breast skin changes (Primary Dx) Start: 03-30-2024 End: 04-02-2024 Telephone encounter Vonnie Garza MD Work Phone: [facility] [place] Comment on above: Appointment Request Start: 02-27-2024 End: 02-27-2024 ambulatory MD Esperanza Moreno [facility] Work Phone: Start: 02-27-2024 End: 02-27-2024 Patient encounter procedure MD Esperanza FUENTES [facility], Specimen Work Phone: Start: 02-27-2024 End: 02-27-2024 Patient encounter procedure MD Esperanza FUENTES [facility] Work Phone: Start: 02-24-2024 Non-patient / Non-visit MD Esperanza FUENTES [facility] Start: 02-24-2024 End: 02-24-2024 ambulatory MD Esperanza Moreno [facility] Work Phone: Start: 02-24-2024 End: 02-24-2024 Patient encounter procedure MD Esperanza FUENTES [facility]Cardi[facility] Services Work Phone: Start: 01-27-2024 End: 01-27-2024 Patient encounter procedure MD Esperanza FUENTES [facility] Work Phone: Start: 01-26-2024 End: 01-26-2024 Patient encounter procedure MD Esperanza FUENTES [facility] Work Phone: Start: 01-24-2024 End: 01-24-2024 ambulatory MD Esperanza FUENTES [facility] Work Phone: Start: 01-24-2024 End: 01-24-2024 Patient encounter procedure MD Esperanza FUENTES [facility], [facility] Work Phone: Start: 01-23-2024 End: 01-23-2024 ambulatory MD Esperanza FUENTES [facility] Work Phone: Start: 01-23-2024 End: 01-23-2024 Patient encounter procedure MD Esperanza FUENTES [facility] Work Phone: Start: 01-17-2024 End: 01-17-2024 Patient encounter procedure MD Esperanza FUENTES [facility] Work Phone: Start: 09-09-2023 End: 09-09-[address] Kendall Curry Work Phone: [facility] Work Phone: Start: 09-09-2023 End: 09-09-[address] Kendall Curry Work Phone: [facility] Work Phone: Start: 08-30-2023 Chart abstracting Matias peña DO Work Phone: [facility] Start: 08-16-2023 Telephone encounter Matias jackson DO Work Phone: [facility] Comment on above: Outside Labs Results ([facility]) Start: 08-16-[address] Karrie Curry Work Phone: [facility] On[facility] Start: 08-16-2023 End: 08-16-[address] Kendall Curry Work Phone: [facility] Work Phone: Start: 08-04-2023 End: 08-04-2023 Lab Order Esperanza Moreno MD Work Phone: [facility] Start: 08-02-2023 End: 08-23-[address] Kendall Curry Work Phone: [facility] Work Phone: Start: 08-02-2023 End: 08-23-[address] Kendall Curry [facility] Work Phone: Start: 08-02-2023 End: 08-02-2023 Office outpatient visit 25 minutes Esperanza Moreno MD Work Phone: [facility] Start: 07-29-2023 End: 07-29-[address] Kendall Curry Work Phone: [facility]Outpatient Breast Imaging Work Phone: Start: 07-27-2023 End: 07-27-[address] Kendall Curry Work Phone: [facility] Work Phone: Start: 07-19-2023 End: 07-23-[address] Kendall Curry Work Phone: [facility] Work Phone: Start: 07-19-2023 End: 07-23-[address] Kendall Curry [facility] Work Phone: Start: 06-21-2023 End: 06-21-2023 Annotation/Addendum Esperanza Moreno MD Work Phone: [facility] Start: 06-21-2023 End: 06-21-2023 Office outpatient visit 40 minutes Esperanza Moreno MD Work Phone: [facility] Start: 06-21-2023 End: 06-21-[address] Kendall Curry Work Phone: [facility] Work Phone: Start: 06-14-2023 End: 06-14-[address] Kendall Curry Work Phone: [facility] Work Phone: Start: 05-10-2023 End: 05-10-2023 ambulatory ANTOINETTE CARTER Facility:[facility] Start: 05-07-2023 Chart abstracting Antoinette worley MD Work Phone: OB/Gynecology Comment on above: surveillance dual rate officer scan prep Start: 05-05-2023 End: 05-05-2023 Patient encounter procedure Esperanza Moreno MD Work Phone: [facility] Start: 05-05-2023 End: 05-05-2023 Patient encounter status Esperanza Moreno MD Work Phone: [facility]; [facility] Work Phone: Comment on above: Mary singh foll owing Dr Nunn function med. colonscopy 2019. Start: 05-05-2023 Review Esperanza Wylie Work Phone: [facility] Start: 04-19-2023 End: 04-19-2023 Phone Encounter Esperanza Moreno MD Work Phone: [facility] Start: 02-07-2023 End: 02-07-2023 Historical Summary Esperanza Moreno MD Work Phone: [facility] Start: 01-31-2023 ambulatory Esperanza Moreno MD [facility] Internal Med Start: 01-31-2023 End: 01-31-2023 Office outpatient new 45 minutes Esperanza Moreno MD Work Phone: [facility] Start: 01-31-2023 End: 01-31-2023 Patient encounter status Esperanza Moreno MD Work Phone: [facility]; [facility] Work Phone: Comment on above: Mary montalvo owing Dr Nunn function med. Start: 01-25-2023 End: 01-25-[address] Kendall Curry Work Phone: [facility] Work Phone: Start: 01-25-2023 End: 01-25-[address] Kenadll Curry Work Phone: [facility] Start: 12-23-2022 End: 12-23-[address] Kendall Curry Work Phone: [facility] Start: 12-21-2022 End: 12-21-[address] Kendall Curry Work Phone: [facility] Endocrinology Start: 12-14-2022 End: 12-14-[address] Kendall Curry Work Phone: [facility] Start: 12-10-2022 End: 12-10-[address] Kendall Curry Work Phone: [facility] Gastroenterology Start: 12-06-2022 End: 12-06-[address] Kendall Curry Work Phone: [facility] Work Phone: Start: 12-06-2022 End: 12-06-[address] Kendall Curry Work Phone: [facility] Internal Medicine Start: 11-09-2022 End: 11-09-[address] Kendall Curry Work Phone: [facility] Start: 07-01-2022 Telephone encounter Matias jackson DO Work Phone: Internal [facility] Comment on above: EGD report ([facility]/10/13/2021/[facility]06/25/2022) Start: 06-09-2022 End: 06-09-[address] Kendall Curry Work Phone: [facility] Work Phone: Start: 06-09-2022 End: 06-09-[address] Kendall Curry Work Phone: [facility]-Outpatient Breast Imaging Start: 06-03-2022 End: 06-03-[address] Kendall Curry Work Phone: [facility] Internal Medicine Start: 05-18-2022 End: 05-18-[address] Kendall Curry Work Phone: [facility]-Laboratory, Specimen Start: 05-18-2022 End: 05-18-[address] Kendall Curry Work Phone: [facility] Start: 05-07-2022 End: 05-07-[address] Kendall Curry Work Phone: [facility] Internal Medicine Start: 05-04-[address] Karrie Curry Work Phone: [facility] On[facility] Start: 05-04-2022 End: 05-04-[address] Kendall Curry Work Phone: [facility] Start: 05-03-2022 Chart abstracting Antoinette worley MD Work Phone: OB/Gynecology Comment on above: surveillance dual rate officer scan prep Start: 04-22-2022 End: 04-22-[address] Kendall Curry Work Phone: [facility] Gastroenterology Start: 04-09-2022 End: 04-09-[address] Kendall Curry Work Phone: [facility], [facility] Start: 11-27-2021 Office outpatient ne w 45 minutes Referring Provider Unknown [id number] [address] Work Phone: Start: 09-30-2021 End: 09-30-2021 Subsequent hospital visit by physician Alin Burns Work Phone: Radiology Comment on above: Pain [R52] Start: 05-05-2018 Patient encounter [facility] Start: 05-04-2018 Ambulatory Family Physici an Unavailable [facility] Start: 09-28-2017 Ambulatory Ta Lutz Facilit y:[facility] Start: 09-26-2017 Ambulatory Cassandraelli Milagros Facility:[facility] Patient encounter status Liudmila Andrea AKINS [facility]; [facility] Work Phone: Comment on above: Mary Nunn function med. colonscopy 2019. Patient encounter status Jennifer Lombardi LPN [facility]; [facility] Work Phone: Comment on above: Mary Nunn function med. colonscopy 2019. Procedures Date Procedure Procedure Detail Performing Clinician Start: 08-03-2025 Lipid 1996 panel - Serum or Plasma Eliu Maldonado MD Work Phone: Start: 08-03-2025 Thyrotropin [Units/volume] in Serum or Plasma Eliu Maldonado MD Work Phone: Start: 06-12-2025 Mri breast without&with contrast w/cad bilateral Vonnie Garza MD Work Phone: Start: 05-12-2025 Adult depression screening assessment Sudhir Pedraza DO Work Phone: Start: 05-10-2025 End: 05-10-2025 Screening digital breast tomosynthesis bi Vonnie Garza MD Work Phone: Start: 02-19-2025 Biopsy thyroid percutaneous core needle Sudhir Pedraza DO Work Phone: Start: 01-17-2025 Thyrotropin [Units/volume] in Serum or Plasma Eliu Jackson MD Work Phone: Start: 11-24-2024 Adult depression screening assessment Vonnie Garza MD Work Phone: Start: 10-08-2024 Follow-up visit Follow-up SUDHIR PEDRAZA Start: 09-07-2024 Ct thorax w/contrast material Sudhir Pedraza DO Work Phone: Start: 08-31-2024 Assay of troponin quantitative Jeff Boykin DO Work Phone: Start: 08-31-2024 Blood gases any combination ph pco2 po2 co2 hco3 Jeff Boykin DO Work Phone: Start: 08-31-2024 Basic metabolic panel calcium total Jeff Boykin DO Work Phone: Start: 08-31-2024 Ecg routine ecg w/least 12 lds trcg only w/o i&r Jeff Boykin DO Work Phone: Start: 08-31-2024 Thyrotropin [Units/volume] in Serum or Plasma Jeff Boykin DO Work Phone: Start: 06-13-2024 Immunoassay tumor antigen quantitative ca 125 Martin Hyatt MD Work Phone: Start: 06-07-2024 Lipid 1996 panel - Serum or Plasma Sudhir Pedraza DO Work Phone: Start: 06-07-2024 Thyrotropin [Units/volume] in Serum or Plasma Sudhir Pedraza DO Work Phone: Start: 05-17-2024 Mri breast without&with contrast w/cad bilateral Vonnie Garza MD Work Phone: Start: 05-16-2024 Adult depression screening assessment Scarlet Love SUSTAINABILITY COORDINATOR - REFINERY PROCESS ENGINEER Work Phone: Start: 04-19-2024 Us breast uni real time with image limited Vonnie Garza MD Work Phone: Start: 04-19-2024 End: 04-19-2024 Mammography Vonnie Garza MD Work Phone: Start: 04-06-2024 Us pelvic nonobstetric real-time image complete Antoinette Carter MD Work Phone: Start: 01-24-2024 US scan of thyroid MD Esperanza FUENTES Start: 08-16-2023 CBC panel - Blood by Automated count [facility] Provider Start: 07-29-2023 End: 07-29-[address] Kendall Curry Work Phone: Start: 07-29-2023 End: 08-01-2023 SCRN MAMM (CAD)W/JOHN BILAT Procedure Note: See Note; NOTES: [facility] Imaging Services [address] [place] [id number] SCRN MAMM (CAD)W/JOHN BILAT MR#: [id number] Acct: [id number] Name: BRISSA JEFFERY ANN Rep #: [id number] : 1965 F 57 From: Daquan hess MD PCP: Dr. Esperanza Moreno MD Status: REG CLI Study: SCRN MAMM (CAD)W/JOHN BILAT Date of Exam: 04/15 Exam# [id number] Ordering Dr: Erma Arndt [id number] MAMMOGRAPHY - BILATERAL SCREENING REASON FOR EXAM: Female, 57 years old. Routine annual screening examination. PERTINENT HISTORY: Aunts with breast cancer. TECHNIQUE: Digital bilateral breast john (3D mammographic acquisition) in the CC and MLO projections. 2-D mediolateral oblique (MLO) and craniocaudad (CC) views of both breasts were obtained. CAD: Full Field Digital Mammography with Computer Added Detection was performed. COMPARISON: Comparison is made with prior study done June 09, 2022. FINDINGS: Breast Composition: The breasts are heterogeneously dense, which may obscure small masses. There are no dominant masses or suspicious calcifications. Stable small benign-appearing bilateral axillary lymph nodes. No other significant abnormalities are identified. There has been no significant change since the prior study. BI/SCRN MAMM (CAD)W/JOHN BILAT IMPRESSION: Stable bilateral screening mammogram. Yearly follow-up mammogram recommended. (A) ASSESSMENT CATEGORY: BIRADS Category 2: Benign. A letter regarding these results will be sent to the patient by the facility within 30 days. Approximately 10% of breast cancers are not detected by mammography. A normal mammogram should not delay biopsy of a clinically suspicious abnormality. [id number] Electronically Signed: Daquan Conroy MD at 10:43 EDT Reading Location ID and State: [facility] / MD , Service support , CC: Dr. Esperanza Moreno MD; Dr. Erma Arndt MD Asphalt Surface Heater Operator: Signed Esperanza Moreno MD Work Phone: Start: 07-27-2023 End: 07-28-2023 Transplant Nurse Office Visit Report Procedure Note: See Note; NOTES: [facility] [address] [place] [address] OFFICE VISIT Date of Service: 07/27/23 MR#: [id number] Acct: [id number] Name: BRISSA JEFFERY Rep #: [id number] : 1965 Provider: Dr. 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: No Is patient in pain?: No Allergies trimethoprim [From Bactrim] Allergy (Mild, Verified 07/27/23 12:01) dizzy Medications hydrochlorothiazide 12.5 mg tablet 12.5 mg PO DAILY #90 tabs 02/19/22 [Rx Confirmed 07/27/23] sucralfate 100 mg/mL oral suspension 10 ml PO QACHS PRN 06/03/22 [History Confirmed 07/27/23] cholecalciferol (vitamin D3) 25 mcg (1,000 unit) capsule 25 mcg PO DAILY 12/23/22 [History Confirmed 07/27/23] omeprazole 20 mg-sodium bicarbonate 1.1 gram capsule (Zegerid) 1 cap PO DAILY 12/23/22 [History Confirmed 07/27/23] ursodiol 300 mg capsule 300 mg PO BID #180 caps 02/04/23 [Rx Confirmed 07/27/23] Tirosint 112 mcg capsule (levothyroxine) 112 mcg PO DAILY #90 caps 07/11/23 [Rx Confirmed 07/27/23] Is last menstrual period known: No Post menopausal: Yes Patient : No : No PFSH Medical History Anemia Anxiety Barretts esophagus Bleeding disorder Breast lump Michael tumor of right ovary Chest pain Chronic back pain Chronic bronchitis Chronic headaches Chronic sinusitis CPAP (continuous positive airway pressure) dependence Depression Easy bruising Essential hypertension Fatty liver Goiter History of deviated nasal septum History of edema History of pain when walking Hx of gastritis 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 Injury of back Injury of head and neck Insulin resistance Metabolic syndrome Multinodular goiter Muscle cramps at night Obesity LINDSAY (obstructive sleep apnea) Panic attack Post-menopausal UTI (urinary tract infection) Vitamin B 12 deficiency Vitamin D deficiency Wears glasses Surgical History H/O abdominal supracervical subtotal hysterectomy History of appendectomy History of cholecystectomy History of colonoscopy Hx of nasal septoplasty Hx of oophorectomy Hx of umbilical hernia repair Family History Father Hypertension Diabetes CHF (congestive heart failure) Heart disease CAD (coronary artery disease) COPD (chronic obstructive pulmonary disease) Pneumonia Dysphagia Dementia Other Arthritis Osteoporosis Social History Smoking Status: Never smoker alcohol intake: never substance use type: does not use seatbelt use: always do you feel safe at home: Yes additional social history: 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 Date Name GA/Weeks Outcome Route Bth Weight Infant Gen Labor Lgth Anesthesia Del Locatn Provider FOB Unknown 1999 40 live - full term Female [facility] HPI Encounter for routine gynecological examination Details: BRISSA JEFFERY is a 57 year old who presents for annual exam. Last PAP: nl 2020 History of abnormal PAP: no severe Last mammogram: nl History of abnormal mammogram: no Colon cancer screening: up to date Other preventative health care screenings: pcp ROS Const Constitutional: Reports as per HPI; Denies fatigue, increased appetite, poor appetite, weight gain or weight loss Cardio Card: Denies chest pain Resp Resp: Denies cough or dyspnea GI GI: Reports as per HPI; Denies abdominal pain, bloating, constipation, nausea or vomiting : Reports as per HPI and other; Denies difficulty voiding, dysuria, hematuria, nipple discharge, pelvic pain, prolapse symptoms, urinary frequency, urinary incontinence, urinary urgency, vaginal discharge, vaginal dryness, vaginal odor or vaginal pruritus Skin Skin/Breast: Denies changing lesions, breast mass, breast pain, breast skin changes or nipple discharge Psych Psych: Denies anxiety or depression Exam Const General: cooperative, healthy appearing, comfortable, no acute distress, well developed and well groomed [facility] Head: normal to inspection and normocephalic Ears: hearing grossly normal bilaterally and external ears normal Nose: external nose normal Face and sinus: normal facial exam Neck Neck: normal visual inspection, full ROM and no lymphadenopathy Thyroid: thyroid normal Chest Chest palpation inspection: normal inspection of the chest Breast inspection: normal inspection of the breasts and normal inspection of the axillae Breast palpation: normal palpation of the breasts, normal palpation of the axillae and no axillary lymphadenopathy Resp Effort Inspection: normal respiratory effort GI Inspection: normal to inspection and non-distended Palpation: soft, no hepatosplenomegaly and no guarding General: bladder normal to palpation External Female Exam: normal external appearance, normal appearance of the urethra and no lesions Urethra: normal appearance of the urethra and normal palpation Speculum Exam - Vagina: normal appearance of the vagina, normal vaginal discharge and other (cervix present) Bimanual Exam- Vagina Uterus: bladder normal to palpation Bimanual Exam- Adnexa, other: no masses and non-tender Skin General: no rashes or lesions noted Neuro General: patient alert, moves all extremities and no focal motor deficits Extrem General: normal to inspection and no pedal edema Psych Appearance: grossly normal Mental Status: mental status grossly normal Affect: normal affect Speech and Movement: speech and movement normal Attitude: cooperative Coding Level of Care Code Off vis,est,prev 40-64yrs Diagnoses Encounter for gynecological examination without abnormal finding Z01.419 Gynecological examination findings: abnormal findings ABSENT Assessment and Plan Assessment and Plan (1) Encounter for routine gynecological examination: Qualifiers: Gynecological examination findings: abnormal findings ABSENT Qualified Code(s): Z01.419 - Encounter for gynecological examination (general) (routine) without abnormal findings Plan Cervical cancer screening: pap WNL Breast cancer screening: mamm other health maintenance examination reviewed and orders placed if needed. Encouraged maintenance of a healthy weight and active lifestyle and handout given. Annual exam handout including recommendations for good health guidelines, Calcium/vitamin D recommendations, and basic screening information given. Problem list up to date, see problem list details for any additional plan information. Follow up in one year for annual health maintenance exam or sooner if needed. 07/27/23 1233 <Electronically signed by Erma Arndt MD> Date [facility] Arndt [facility] Signature: Date (if applicable) CC: Esperanza Moreno MD Work Phone: Start: 01-25-[address] Kendall Curry Work Phone: Start: 01-25-[address] Kendall Curry Work Phone: Start: 11-09-2022 US scan of thyroid Dr. Kendall Curry Work Phone: Start: 06-09-[address] Kendall Curry Work Phone: Start: 06-09-[address] Kendall Curry Work Phone: Start: 10-28-2021 Allergen spec ige crude allergen extract each [place] Doctor Start: 09-30-2021 Radex hand minimum 3 views Deandre Will PA-C Work Phone: Start: 07-06-2021 Lipid 1996 panel - Serum or Plasma Matias Alvarez DO Work Phone: Start: 05-12-2021 Mammography Antoinette Carter MD Work Phone: Start: 02-09-2021 Adult depression screening assessment Antoinette Carter MD Work Phone: Start: 11-29-2018 Colonoscopy Antoinette Carter MD Work Phone: Abdominal hysterectomy Jennifer Lombardi LPN Comment on above: 2006 Abdominal hysterectomy Jennifer Maria C CHECK OUT CASHIER Comment on above: 2006 Abdominal hysterectomy Li Mendez MA Comment on above: 2006 Abdominal hysterectomy Jennifer Maria C CHECK OUT CASHIER Comment on above: 2006 Appendectomy Jennifer Maria C L PN Comment on above: 2018 Appendectomy Jennifer Maria C L PN Comment on above: 2019 Appendectomy Liudmila Mendez MA Comment on above: 2019 Appendectomy Jennifer Maria C L PN Comment on above: 2018 Cholecystectomy Jennifer Coffma n CHECK OUT CASHIER Comment on above: 12/2006 Cholecystectomy Jennifer Coffma n CHECK OUT CASHIER Comment on above: 12/2006 Cholecystectomy Liudmila Mendez MA Comment on above: 12/2006 Cholecystectomy Jennifer Coffma n CHECK OUT CASHIER Comment on above: 12/2006 Operation on nasal septum Jennifer Maria C CHECK OUT CASHIER Comment on above: 2000 Operation on nasal septum Jennifer Maria C CHECK OUT CASHIER Comment on above: 2000 Operation on nasal septum Liudmila Mendez MA Comment on above: 2000 Operation on nasal septum Jennifer Maria C CHECK OUT CASHIER Comment on above: 2000 right ovary removal 2019 Michael's tumor Esperanza Moreno MD Work Phone: right ovary removal 2019 Michael's tumor Jennifer Maria C CHECK OUT CASHIER right ovary removal 2019 Michael's tumor Liudmila Mendez MA right ovary removal 2019 Michael's tumor Jennifer Maria C CHECK OUT CASHIER Urine culture Dr. Kendall Curry Work Phone: Vaccine refused by patient Vaccination not carried out because of patient refusal [employer] Work Phone: Vaccine refused by patient Vaccination not carried out because of patient refusal Truvisonaugh DO Work Phone: Vaccine refused by patient Vaccination not carried out because of patient refusal Sudhir Keila DO Work Phone: Plan of Treatment Date Care Activity Detail Author Start: 2041 RSV Immunization for Adults (1 - 1-dose 75+ series) RSV Immunization for Adults (1 - 1-dose 75+ series) [facility] Start: 08-03-2030 Lipid panel Lipid Panel [facility] Start: 06-07-2029 Lipid panel Lipid Panel [facility] Start: 11-29-2028 Colonoscopy COLONOSCOPY [facility] Start: 11-29-2028 COLORECTAL CANCER SCREENING COLORECTAL CANCER SCREENING [facility] Start: 11-29-2028 Screening for malignant neoplasm of colon [facility] Start: 11-17-2028 DTaP/Tdap/Td Vaccines (2 - Td or Tdap) DTaP/Tdap/Td Vaccines (2 - Td or Tdap) [facility] Start: 11-17-2028 DTaP/Tdap/Td Vaccines (3 - Td or Tdap) DTaP/Tdap/Td Vaccines (3 - Td or Tdap) [facility] Start: 11-17-2028 Tetanus vaccination TETANUS [facility] Start: 11-17-2028 Urine microalbumin profile [facility] Start: 04-09-2027 Screening for malignant neoplasm of colon [facility] Start: 2026 RSV Immunization aged 60 or older (1 - 1-dose 60+ series) RSV Immunization aged 60 or older (1 - 1-dose 60+ series) [facility] Start: 09-23-2026 End: 09-23-2026 Patient encounter procedure 09/23/2026 8:30 AM EST Office Visit [facility] [address] [place] [phone] Ashley Alexander, SUSTAINABILITY COORDINATOR - REFINERY PROCESS ENGINEER [address] [place], [place] [id number] [facility] Start: 08-03-2026 Diabetes mellitus screening Diabetes Screening [facility] Start: 08-03-2026 Thyroid stimulating hormone measurement TSH Level [facility] Start: 07-06-2026 Lipid 1996 panel - Serum or Plasma Lipid Screening [facility] Start: 07-06-2026 Lipid panel Lipid Screening [facility] Start: 07-06-2026 LIPID SCREEN LIPID SCREEN [facility] Start: 06-19-2026 End: 06-19-2026 Patient encounter procedure 06/19/2026 9:30 AM EDT Office Visit [facility] Obstetrics and Gynecology [place] [address] [place] [address] Martin Hyatt MD [address] [place] [address] [facility] Obstetrics [facility] Gynecology - [facility] Start: 05-23-2026 End: 07-30-2026 DBT Breast - bilateral screening Bilateral screening mammogram with tomosynthesis Imaging Routine Encounter for screening mammogram for breast cancer Expected: 05/23/2026, Expires: 07/30/2026 [facility] Work Phone: Comment on above: Expected: 05/23/2026, Expires: Start: 05-20-2026 End: 05-20-2026 Patient encounter procedure 05/20/2026 1:20 PM EDT Office Visit [facility] [place] [address] [place] [address] [place] [address] Sudhir Pedraza DO [address] [place] [address] [place] [address] [facility] [place] Start: 05-20-2026 End: 05-20-2026 Patient encounter procedure 05/20/2026 11:20 AM EDT Office Visit [facility] [place] [address] [place] [address] [place] [phone] Sudhir Pedraza DO [address] [place] [address] [place] [address] [facility] [place] Start: 05-18-2026 HPV TESTING HPV TESTING [facility] Start: 05-18-2026 PAP TESTING PAP TESTING [facility] Start: 05-18-2026 Screening for malignant neoplasm of cervix Cervical Cancer Screening [facility] Start: 05-16-2026 End: 05-16-2026 Patient encounter procedure 05/16/2026 9:00 AM EDT Appointment [facility] [address] [place] [address] [place] [address] [facility] Start: 05-12-2026 Depression Screening Depression Screening [facility] Start: 05-10-2026 Screening for malignant neoplasm of breast [facility] Start: 01-21-2026 Thyroid Nodule Ultrasound Thyroid Nodule Ultrasound [facility] Start: 01-17-2026 Thyroid stimulating hormone measurement TSH Level [facility] Start: 01-15-2026 End: 07-30-2026 CT Chest WO contrast CT chest wo IV contrast Imaging Routine Lung nodule Expected: 01/15/2026, Expires: 07/30/2026 [facility] Work Phone: Comment on above: Expected: 01/15/2026, Expires: Start: 01-15-2026 End: 01-15-2026 Patient encounter procedure 01/15/2026 7:30 AM EDT Appointment [facility] [address] [place] [address] Nigel Aguiar [facility] [place], [place] [address] [facility] [address] Start: 12-17-2025 End: 12-17-2025 Patient encounter procedure 12/17/2025 12:15 PM EST Appointment [facility] [address] [place] [address] [facility] Start: 12-13-2025 End: 08-12-2026 MR Breast - bilateral WO and W contrast IV Bilateral breast MR with and without contrast Imaging Routine Abnormal MRI, breast Expected: 12/13/2025, Expires: 08/12/2026 [employer] [facility] Work Phone: Comment on above: Expected: 12/13/2025, Expires: Start: 11-24-2025 Depression Screening Depression Screening [facility] Start: 09-06-2025 COVID-19 Vaccine ( season) COVID-19 Vaccine () [facility] Comment on above: Postponed from 06/24/2024 (Patient Refus ed) Start: 08-31-2025 Thyroid stimulating hormone measurement TSH Level [facility] Start: 08-16-2025 End: 08-16-2025 Patient encounter procedure [facility] Start: 07-24-2025 End: 07-24-2025 Patient encounter procedure 07/24/2025 8:45 AM EDT Office Visit [facility] [address] [place] [address] Kathleen Porras MD [address] [place], [place] [phone] [facility] Start: 07-18-2025 End: 01-31-2026 CT Chest WO contrast [facility] Work Phone: Comment on above: Expected: 07/18/2025, Expires: Once for 1 Occurrenc es starting 07/18/2025 until 07/18/2025 Start: 07-18-2025 End: 07-18-2025 Patient encounter procedure 07/18/2025 10:00 AM EDT Appointment [facility] [address] [place] [address] [place] [phone] [facility] [place] [facility] Start: 07-15-2025 HIV SCREENING HIV SCREENING [facility] Comment on above: Postponed from 1984 (Declined at t his time) Start: 07-15-2025 HIV screening HIV Screening [facility] Comment on above: Postponed from 1984 (Declined at t his time) Start: 06-24-2025 COVID-19 Vaccine ( season) COVID-19 Vaccine ( season) [facility] Start: 06-24-2025 Influenza vaccination [facility] Start: 06-13-2025 End: 06-13-2025 Patient encounter procedure [facility] Start: 06-12-2025 End: 06-12-2025 Patient encounter procedure 06/12/2025 9:00 AM EDT Appointment [facility] [address] [place] [address] [facility] Start: 06-07-2025 Diabetes mellitus screening Diabetes Screening [facility] Start: 06-07-2025 Thyroid stimulating hormone measurement TSH Level [facility] Start: 05-30-2025 End: 05-30-2025 Patient encounter procedure 05/30/2025 10:30 AM EDT Office Visit [facility] [address] [place] [address] [place] [phone] Ashley Alexander, SUSTAINABILITY COORDINATOR - REFINERY PROCESS ENGINEER [address] [place] [address] [facility] Start: 05-22-2025 End: 05-22-2025 Patient encounter procedure [facility] Start: 05-22-2025 End: 05-22-2025 Professional / ancillary services management [facility] Start: 05-16-2025 Depression Screening Depression Screening [facility] Start: 05-15-2025 End: 05-15-2026 CBC panel - Blood by Automated count CBC Lab Routine Annual physical exam Expected: 05/15/2025 (Approximate), Expires: 05/15/2026 [facility] Comment on above: Expected: 05/15/2025 (Approximate), Expi res: 05/15/2026 Start: 05-15-2025 End: 05-15-2026 Comprehensive metabolic 1998 panel - Serum or Plasma Comprehensive metabolic panel Lab Routine Annual physical exam Expected: 05/15/2025 (Approximate), Expires: 05/15/2026 [facility] Work Phone: Comment on above: Expected: 05/15/2025 (Approximate), Expi res: 05/15/2026 Start: 05-15-2025 End: 05-15-2026 Hemoglobin A1c measurement Hemoglobin A1c Lab Routine Annual physical exam Elevated fasting glucose Expected: 05/15/2025 (Approximate), Expires: 05/15/2026 [facility] Comment on above: Expected: 05/15/2025 (Approximate), Expi res: 05/15/2026 Start: 05-15-2025 End: 05-15-2026 Lipid 1996 panel - Serum or Plasma Lipid panel Lab Routine Annual physical exam Hyperlipidemia, unspecified hyperlipidemia type Expected: 05/15/2025 (Approximate), Expires: 05/15/2026 [facility] Comment on above: Expected: 05/15/2025 (Approximate), Expi res: 05/15/2026 Start: 05-15-2025 End: 05-15-2026 Thyrotropin [Units/volume] in Serum or Plasma TSH Lab Routine 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 Expected: 05/15/2025 (Approximate), Expires: 05/15/2026 [facility] Comment on above: Expected: 05/15/2025 (Approximate), Expi res: 05/15/2026 Start: 05-15-2025 End: 05-15-2025 Patient encounter procedure 05/15/2025 1:40 PM EDT Office Visit [facility] [address] [place] [address] [place] [phone] Sudhir Pedraza DO [address] [place] [address] [place] [address] [facility] Start: 04-22-2025 Influenza vaccination Influenza Vaccine (#1) [facility] Comment on above: Postponed from 06/24/2024 (Patient Refus ed) Start: 04-22-2025 End: 04-22-2025 Patient encounter procedure 04/22/2025 10:00 AM EDT Appointment [facility] [address] [place] [address] [place] [phone] [facility] Start: 04-19-2025 Screening for malignant neoplasm of breast Mammogram [facility] Start: 04-09-2025 Screening for malignant neoplasm of colon COLORECTAL CANCER SCREENING DISCUSSION [facility] Start: 02-19-2025 End: 02-19-2025 Patient encounter procedure 02/19/2025 1:00 PM EDT Appointment [facility] [address] [place] [phone] Sudhir Pedraza DO [address] [place] [address] [place] [address] [facility] Start: 01-31-2025 End: 01-31-2025 Patient encounter procedure 01/31/2025 10:45 AM EDT Office Visit [facility] [address] [place] [address] [place] [phone] Eliu Maldonado MD [address] [place] [address] [facility] - [place] Start: 01-21-2025 End: 01-21-2025 Patient encounter procedure [facility] [place] [facility] Start: 01-21-2025 Subsequent hospital visit by physician 01/21/2025 1:30 PM EDT Hospital Encounter [facility] [place] [facility] [address] [place] [address] [place] [address] Sudhir Pedraza DO [address] [place] [address] [place] [address] [facility] Start: 01-18-2025 End: 01-18-2025 ambulatory 01/18/2025 1:15 PM EDT Evaluation [facility] [address] [place] [address] [place] [address] Eliu Jackson MD [address] [place] [address] Alban Mercedes, PT [facility] Therapy [facility] Start: 01-17-2025 End: 01-17-2025 Patient encounter procedure 01/17/2025 10:00 AM EDT Appointment [facility] [address] [place] [address] [place] [address] [place] [address] Eliu Maldonado MD [address] [place] [address] [facility] [address] [place] [address] Start: 01-16-2025 End: 01-16-2026 XR Shoulder - right 2 Views XR shoulder 2+ views right Imaging Routine Acute pain of right shoulder Expected: 01/16/2025, Expires: 01/16/2026 [facility] [facility] Work Phone: Comment on above: Expected: 01/16/2025, Expires: Start: 01-15-2025 End: 01-15-2025 Patient encounter procedure 01/15/2025 3:20 PM EDT Office Visit [facility] [address] [place] [address] [place] [phone] Sudhir Pedraza DO [address] [place] [address] [place] [address] [facility] Start: 01-15-2025 End: 01-15-2026 US extremity non vascular limited US extremity non vascular limited Imaging Routine Subcutaneous nodule of right foot Expected: 01/15/2025, Expires: 01/15/2026 [facility] Comment on above: Expected: 01/15/2025, Expires: Start: 01-15-2025 End: 01-15-2026 US Thyroid gland US thyroid Imaging Routine Multinodular goiter Expected: 01/15/2025, Expires: 01/15/2026 [facility] Work Phone: Comment on above: Expected: 01/15/2025, Expires: Start: 11-29-2024 End: 01-27-2026 MR Breast - bilateral WO and W contrast IV Bilateral breast MR with and without contrast Imaging Routine At high risk for breast cancer Family history of breast cancer Expected: 11/29/2024, Expires: 01/27/2026 [facility] Work Phone: Comment on above: Expected: 11/29/2024, Expires: Start: 11-29-2024 End: 11-29-2024 Patient encounter procedure 11/29/2024 9:30 AM EST Office Visit [facility] [address] [place] [address] Vonnie Garza MD [address] [place] [address] [address] [place] [address] [facility] Start: 11-27-2024 End: 11-27-2024 Patient encounter procedure 11/27/2024 1:20 PM EST Office Visit [facility] [address] [place] [address] [place] [phone] Sudhir Pedraza DO [address] [place] [address] [place] [address] [facility] Start: 11-20-2024 End: 01-17-2025 CT Chest WO contrast CT chest wo IV contrast Imaging Routine Lung nodule Expected: 11/20/2024, Expires: 01/17/2025 [facility] Work Phone: Comment on above: Expected: 11/20/2024, Expires: Start: 11-14-2024 End: 11-14-2024 Patient encounter procedure 11/14/2024 10:45 AM EST Office Visit [facility] [place] [address] [place] [address] [place] [address] Eliu Maldonado MD [address] [phone] [facility] Pulmonary [facility] Start: 10-29-2024 End: 10-29-2024 Patient encounter procedure [facility] Start: 10-19-2024 Subsequent hospital visit by physician 10/19/2024 10:00 AM EST Hospital Encounter [facility] [address] [place] [address] Eliu Maldonado MD [address] [address] [facility] Start: 10-18-2024 End: 10-18-2024 Patient encounter procedure 10/18/2024 3:00 PM EST Office Visit [facility] Sleep Medicine - [place] [address] [place] [address] Chuck Jung MD [address] [place] [address] [facility] [place] Start: 10-15-2024 Subsequent hospital visit by physician 10/15/2024 10:00 AM EST Hospital Encounter [facility] [address] [place] [phone] Eliu Maldonado MD [address] [place], [place] [phone] [facility] Start: 10-12-2024 End: 10-12-2024 Patient encounter procedure [facility] [place] Start: 10-08-2024 End: 10-08-2025 PET+CT Bone from skull base to mid-thigh W [id number] IV PET/CT skull base to mid thigh Imaging Routine Lung nodule Expected: 10/08/2024, Expires: 10/08/2025 [facility] Work Phone: Comment on above: Expected: 10/08/2024, Expires: Start: 10-08-2024 End: 10-08-2024 Patient encounter procedure 10/08/2024 10:30 AM EST Office Visit [facility] [place] [address] [place] [phone] Eliu Maldonado MD [address] [place], [place] [phone] [facility] [place] Start: 10-08-2024 End: 10-08-2024 Patient encounter procedure 10/08/2024 7:40 AM EST Office Visit [facility] [place] [address] [place] [address] [place] [phone] Sudhir Pedraza DO [address] [place] [address] [place] [address] [facility] [place] Start: 09-17-2024 End: 09-17-2024 Patient encounter procedure 09/17/2024 7:40 AM EST Office Visit [facility] [address] [place] [address] [place] [address] Sudhir Pedraza DO [address] [place] [address] [place], [place] [phone] [facility] Start: 09-13-2024 End: 09-13-2024 Patient encounter procedure 09/13/2024 11:30 AM EST Office Visit [facility] [place] [address] [place] [address] [place] [address] Eliu Maldonado MD [address] [address] [facility] [place] Start: 09-07-2024 Subsequent hospital visit by physician 09/07/2024 2:30 PM EST Hospital Encounter [facility] [place] [facility] [address] [place] [address] [place] [address] Sudhir Pedraza DO [address] [place] [address] [place] [address] [place] [address] Start: 09-06-2024 End: 09-06-2025 Basic metabolic 1998 panel - Serum or Plasma Basic metabolic panel Lab Routine Vaccination not carried out because of patient refusal Dizziness CO2 retention Unintentional weight loss Abdominal bloating LUCERO (dyspnea on exertion) Chest pain, unspecified type Expected: 09/06/2024 (Approximate), Expires: 09/06/2025 [facility] Comment on above: Expected: 09/06/2024 (Approximate), Expi res: 09/06/2025 Start: 09-06-2024 End: 09-06-2025 CT Abdomen and Pelvis WO and W contrast IV CT chest abdomen with contrast Imaging STAT Vaccination not carried out because of patient refusal Dizziness CO2 retention Unintentional weight loss Abdominal bloating LUCERO (dyspnea on exertion) Chest pain, unspecified type Expected: 09/06/2024, Expires: 09/06/2025 [facility] Work Phone: Comment on above: Expected: 09/06/2024, Expires: Start: 09-06-2024 End: 09-06-2024 Patient encounter procedure 09/06/2024 8:40 AM EST Office Visit [facility] [address] [place] [address] [place] [phone] Sudhir Pedraza DO [address] [place] [address] [place] [address] [facility] Start: 08-20-2024 End: 08-20-2025 Pulse oximetry, overnight Pulse oximetry, overnight Respiratory Care Routine LINDSAY treated with BiPAP Expected: 08/20/2024 (Approximate), Expires: 08/20/2025 [facility] Work Phone: Comment on above: Expected: 08/20/2024 (Approximate), Expi res: 08/20/2025 Start: 07-29-2024 Screening for malignant neoplasm of breast Mammogram [facility] Start: 07-12-2024 End: 07-12-2024 Patient encounter procedure 07/12/2024 2:30 PM EDT Office Visit [facility] Pulmonary [facility] [address] [place] [address] [place] [phone] Eliu Maldonado MD [address] [place] [phone] [facility] Start: 07-11-2024 End: 07-11-2024 Patient encounter procedure 07/11/2024 8:40 AM EDT Office Visit [facility] Medicine [address] [place] [address] [place] [phone] Sudhir Pedraza DO [address] [place] [address] [place] [address] [facility] Start: 07-06-2024 DIABETES SCREEN DIABETES SCREEN [facility] Start: 07-06-2024 Diabetes Screening Diabetes Screening [facility] Start: 06-24-2024 COVID-19 Vaccine ( season) COVID-19 Vaccine ( season) [facility] Start: 06-24-2024 Covid-19 Vaccine ( season) Covid-19 Vaccine ( season) [facility] Start: 06-24-2024 Influenza vaccination [facility] Start: 06-13-2024 End: 06-13-2025 US Pelvis transvaginal US pelvis transvaginal Imaging Routine Michael tumor of ovary, right Expected: 06/13/2024, Expires: 06/13/2025 [facility] Work Phone: Comment on above: Expected: 06/13/2024, Expires: Start: 06-13-2024 End: 06-13-2024 Patient encounter procedure 06/13/2024 10:15 AM EDT Office Visit [facility] Obstetrics & Gynecology [address] [place] [address] Martin Hyatt MD [address] [place] [address] [facility] Start: 05-17-2024 End: 05-17-2024 Patient encounter procedure 05/17/2024 7:00 AM EDT Appointment [facility] [address] [place] [phone] [facility] Start: 05-16-2024 End: 05-16-2025 C reactive protein [Mass/volume] in Serum or Plasma by High sensitivity method High sensitivity CRP Lab Routine Class 3 severe obesity due to excess calories without serious comorbidity with body mass index (BMI) of 45.0 to 49.9 in adult (HCC) Expected: 05/16/2024 (Approximate), Expires: 05/16/2025 [facility] Comment on above: Expected: 05/16/2024 (Approximate), Expi res: 05/16/2025 Start: 05-16-2024 End: 05-16-2025 CBC W Auto Differential panel - Blood CBC auto differential Lab Routine Thrombocytopenia (HCC) Expected: 05/16/2024 (Approximate), Expires: 05/16/2025 [facility] Comment on above: Expected: 05/16/2024 (Approximate), Expi res: 05/16/2025 Start: 05-16-2024 End: 05-16-2025 Comprehensive metabolic 1998 panel - Serum or Plasma Comprehensive metabolic panel Lab Routine Essential hypertension Expected: 05/16/2024 (Approximate), Expires: 05/16/2025 [facility] Comment on above: Expected: 05/16/2024 (Approximate), Expi res: 05/16/2025 Start: 05-16-2024 End: 05-16-2025 Cortisol Cortisol Lab Routine Class 3 severe obesity due to excess calories without serious comorbidity with body mass index (BMI) of 45.0 to 49.9 in adult ([facility]) Expected: 05/16/2024 (Approximate), Expires: 05/16/2025 [facility] [facility] Comment on above: Expected: 05/16/2024 (Approximate), Expi res: 05/16/2025 Start: 05-16-2024 End: 05-16-2025 Hemoglobin A1c measurement Hemoglobin A1c Lab Routine Class 3 severe obesity due to excess calories without serious comorbidity with body mass index (BMI) of 45.0 to 49.9 in adult ([facility]) Expected: 05/16/2024 (Approximate), Expires: 05/16/2025 [facility] Comment on above: Expected: 05/16/2024 (Approximate), Expi res: 05/16/2025 Start: 05-16-2024 End: 05-16-2025 Insulin, random Insulin, random Lab Routine Class 3 severe obesity due to excess calories without serious comorbidity with body mass index (BMI) of 45.0 to 49.9 in adult ([facility]) Expected: 05/16/2024 (Approximate), Expires: 05/16/2025 [facility] Comment on above: Expected: 05/16/2024 (Approximate), Expi res: 05/16/2025 Start: 05-16-2024 End: 05-16-2025 Lipid 1996 panel - Serum or Plasma Lipid panel Lab Routine Screening for lipid disorders Expected: 05/16/2024 (Approximate), Expires: 05/16/2025 [facility] Work Phone: Comment on above: Expected: 05/16/2024 (Approximate), Expi res: 05/16/2025 Start: 05-16-2024 End: 05-16-2025 Thyrotropin [Units/volume] in Serum or Plasma TSH Lab Routine Acquired hypothyroidism Expected: 05/16/2024 (Approximate), Expires: 05/16/2025 [facility] Comment on above: Expected: 05/16/2024 (Approximate), Expi res: 05/16/2025 Start: 05-16-2024 End: 05-16-2024 Patient encounter procedure 05/16/2024 9:00 AM EDT Office Visit [facility] [address] [place] [address] [place] [phone] Scarlet Love, SUSTAINABILITY COORDINATOR - REFINERY PROCESS ENGINEER [address] [place] [address] [place] [address] [facility] [facility] Start: 04-19-2024 End: 04-19-2024 Patient encounter procedure [facility] Start: 04-12-2024 End: 04-12-2024 Patient encounter procedure 04/12/2024 3:00 PM EDT Office Visit [facility] [address] [place] [address] Vonnie Garza MD [address] [place] [address] [facility] Start: 04-12-2024 End: 06-12-2025 MR Breast - bilateral WO and W contrast IV Bilateral breast MR with and without contrast Imaging Routine At high risk for breast cancer Breast skin changes Expected: 04/12/2024, Expires: 06/12/2025 [facility] Work Phone: Comment on above: Expected: 04/12/2024, Expires: Start: 04-09-2024 End: 06-09-2025 US Breast - bilateral limited Bilateral breast US limited Imaging Routine Abnormal finding on breast imaging Expected: 04/09/2024, Expires: 06/09/2025 [facility] Work Phone: Comment on above: Expected: 04/09/2024, Expires: 5 Start: 04-02-2024 End: 06-02-2025 DBT Breast - bilateral diagnostic Bilateral diagnostic mammogram with tomosynthesis Imaging Routine Breast skin changes Expected: 04/02/2024, Expires: 06/02/2025 [facility] Work Phone: Comment on above: Expected: 04/02/2024, Expires: 5 Start: 01-24-2024 US scan of thyroid Thyroid [facility] Start: 10-24-2023 Behavioral Health Screening Behavioral Health Screening [facility] Start: 08-04-2023 25 hydroxy includes fractions if performed CALCIFEDIOL (61350) [facility] Work Phone: Start: 08-04-2023 Cyanocobalamin vitamin b-12 VITAMIN B12 AND FOLATES (84642) [facility] Work Phone: Start: 08-04-2023 Organic acid 1 quantitative Methymalonic Acid, Serum (92810) [facility]; [facility] Work Phone: Start: 08-02-2023 Procedure Education Eprescribed prescriptions (G8553) [facility]; [facility] Work Phone: Start: 06-24-2023 COVID-19 Vaccine ( season) COVID-19 Vaccine ( season) [facility] Start: 06-24-2023 Influenza vaccination [facility] Start: 05-05-2023 Procedure Education Eprescribed prescriptions (G8553) [facility]; [facility] Work Phone: Start: 05-05-2023 Urnls dip stick/tablet rgnt non-auto w/o micrscp Urinalysis, Office (37504) [facility]; [facility] Work Phone: Start: 05-05-2023 Comprehensive metabolic panel METABOLIC PANEL, COMPREHENSIVE (96915) [facility]; [facility] Work Phone: Start: 05-05-2023 Blood count manual cell count each CBC with auto diff (35277) [facility]; [facility] Work Phone: Start: 05-05-2023 25 hydroxy includes fractions if performed CALCIFIDIOL (98405) VIT D 25 [facility]; [facility] Work Phone: Start: 04-19-2023 Urinalysis qual/semiquant except immunoassays URINALYSIS (67129) [facility]; [facility] Work Phone: Start: 01-31-2023 Procedure Education Eprescribed prescriptions (G8553) [facility]; [facility] Work Phone: Start: 12-06-2022 Patient referral [facility] Work Phone: Start: 10-24-2022 DEPRESSION ASSESSMENT DEPRESSION ASSESSMENT [facility] Start: 08-24-2022 ANNUAL PCP TEAM CHRONIC DISEASE VISIT ANNUAL PCP TEAM CHRONIC DISEASE VISIT [facility] Start: 06-24-2022 Influenza vaccination INFLUENZA (#1) [facility] Start: 05-18-2022 Patient referral [facility] Work Phone: Start: 05-12-2022 Mammography [facility] Start: 05-12-2022 Screening for malignant neoplasm of breast Mammogram Screening [facility] Start: 02-09-2022 Adult depression screening assessment DEPRESSION SCREENING [facility] Start: 07-16-2020 BP CONTROLLED (<130/80) BP CONTROLLED (<130/80) [facility] Start: 2016 Pneumococcal vaccination PNEUMOCOCCAL VACCINE SERIES (1 of 1 - PCV) [facility] Start: 2016 Pneumococcal Vaccine: 50+ Years (1 of 1 - PCV) Pneumococcal Vaccine: 50+ Years (1 of 1 - PCV) [facility] Start: 2016 SHINGRIX VACCINE (1 of 2) SHINGRIX VACCINE (1 of 2) [facility] Start: 2016 Zoster vaccine hzv live for subcutaneous use ZOSTER (SHINGLES) VACCINE (1 of 2) [facility] Start: 2016 Zoster Vaccines (1 of 2) Zoster Vaccines (1 of 2) [facility] Start: 2011 COLOGUARD (FIT-DNA) COLOGUARD (FIT-DNA) [facility] Start: [address] COLONOGRAPHY [facility] Start: 2011 FECAL OCCULT BLOOD FECAL OCCULT BLOOD [facility] Start: 2011 Screening for malignant neoplasm of colon [facility] Start: 2011 SIGMOIDOSCOPY SIGMOIDOSCOPY [facility] Start: 2006 Lipid panel LIPID SCREENING [facility] Start: 2006 Screening for malignant neoplasm of breast Mammogram [facility] Start: 1996 Screening for malignant neoplasm of cervix [facility] Start: 1987 Screening for malignant neoplasm of cervix [facility] Start: 1985 Hepatitis A Vaccines (1 of 2 - Risk 2-dose series) Hepatitis A Vaccines (1 of 2 - Risk 2-dose series) [facility] Start: 1985 Hepatitis B vaccination HEP B VACCINE (1 of 3 - 19+ 3-dose series) [facility] Start: 1985 Hepatitis B Vaccine (1 of 3 - 19+ 3-dose series) Hepatitis B Vaccine (1 of 3 - 19+ 3-dose series) [facility] Start: 1985 Hepatitis B Vaccines (1 of 3 - 19+ 3-dose series) Hepatitis B Vaccines (1 of 3 - 19+ 3-dose series) [facility] Start: 1985 Pneumococcal Vaccine: 50+ Years (1 of 2 - PCV) Pneumococcal Vaccine: 50+ Years (1 of 2 - PCV) [facility] Start: 1984 Anxiety Screening Anxiety Screening [facility] Start: 1984 Depression Screening Depression Screening [facility] Start: 1984 Diabetes mellitus screening Diabetes Screening [facility] Start: 1984 Hepatitis C screening Hepatitis C Screening [facility] Start: 1981 HIV screening HIV SCREENING DISCUSSION [facility] Start: 1978 Depression Screening Depression Screening [facility] Start: 1967 MMR Vaccines (1 of 1 - Standard series) MMR Vaccines (1 of 1 - Standard series) [facility] Start: 04-10-1967 COVID-19 VACCINE (#1) COVID-19 VACCINE (#1) [facility] Start: 04-10-1967 Examination of skin Derm Melanoma Skin Check [facility] Start: 1966 HEPATITIS B (1 of 3 - 3-dose series) HEPATITIS B (1 of 3 - 3-dose series) [facility] Start: 1966 Hepatitis B Vaccine (1 of 3 - 3-dose series) Hepatitis B Vaccine (1 of 3 - 3-dose series) [facility] Start: 1966 Hepatitis C screening HEPATITIS C VIRUS SCREENING [facility] Start: 1966 HIV screening HIV Screening [facility] Start: 1966 Lipid panel Lipid Panel [facility] Start: 1966 Screening for malignant neoplasm of colon [facility] Start: 1966 Thyroid Nodule Ultrasound Thyroid Nodule Ultrasound [facility] Start: 1966 Thyroid stimulating hormone measurement TSH Level [facility] CT angiography of coronary arteries [facility] End: 01-17-2025 CT Chest [facility]: Comment on above: Once for 1 Occurrences starting 01/18/20 until 01/17/2025 End: 10-16-2024 CT Maxillofacial region WO and W contrast [facility] Work Phone: Comment on above: Once for 1 Occurrences starting 10/16/20 until 10/16/2024 Cytology Cervical or vaginal smear or scraping study Pap Smear Pathology and Cytology Routine Encounter for gynecological examination without abnormal finding Ordered: 06/13/2024 [facility] [employer] Comment on above: Ordered: 06/13/2024 ECG 12 lead ECG 12 lead CV E CG STAT 08/31/2024 10:08 AM EST [facility] Work Phone: Fine needle aspiration [facility] Work Phone: Comment on above: Release Upon Ordering for 1 Occurrences starting 02/19/2025 Liver stiffness by US.transient elastography [facility] Patient referral [facility] Work Phone: End: 10-19-2024 PET+CT Bone from skull base to mid-thigh W 18F-NaF IV [facility] Work Phone: Comment on above: Once for 1 Occurrences starting 10/19/20 until 10/19/2024 T4 free measurement [facility] Thyroid stimulating hormone measurement [facility] Ultrasound elastography [facility] US Abdomen limited [facility] End: 01-21-2025 US extremity non vascular limited [facility] [employer] Work Phone: Comment on above: Once for 1 Occurrences starting 01/22/20 until 01/21/2025 US Heart [facility] End: 01-21-2025 US Thyroid gland [facility] [employer] Work Phone: Comment on above: Once for 1 Occurrences starting 01/22/20 until 01/21/2025 End: 01-17-2025 XR Shoulder - right 2 Views [facility] [employer] Comment on above: Once for 1 Occurrences starting 01/18/20 until 01/17/2025 [facility] Work Phone: Immunizations Immunization Date Immunization Notes Care Provider [facility] 07-08-2020 influenza virus vaccine, unspecified formulation Antoinette Carter MD Work Phone: [facility] 11-17-2018 tetanus toxoid, reduced diphtheria toxoid, and acellular pertussis vaccine, adsorbed Antoinette Carter MD Work Phone: [facility] 10-24-2018 tetanus toxoid, reduced diphtheria toxoid, and acellular pertussis vaccine, adsorbed Esperanza Moreno MD Work Phone: [facility]; [facility] Work Phone: Payers Date Payer Category Payer Managed Care (unspecified) [employer] [id number] 2023 Blue [employer] Managed Care - HMO [id number] 2023 Commercial Managed C are - HMO [employer] [id number] 2023 Medicaid ANTHEM MEDICAID AN[employer] MEDICAID ODM [id number] 2023-Present [address] [place] [address] Medicaid HMO [id number] 2021 Self-pay 2021 Unknown [id number] 2020 Unknown 2020 Unknown [employer] BL[employer] C[employer] PPO OOS [id number] 2020-Present [phone] [address] [place] [address] PPO [id number] 2016 Unknown [id number] 1966 Unknown [id number] 1966 Unknown [id number] 1966 Unknown [id number] Unknown [id number] Unknown [id number] Unknown [id number] Unknown [id number] Unknown [id number] 462 Unknown [id number] 462 Unknown [id number] 462 Unknown [id number] 462 Social History Date Type Detail Facility Start: 09-17-2013 End: 06-12-2024 Tobacco smoking status NHIS Ex-smoker [facility] Work Phone: Start: 09-17-1986 End: 09-17-1988 History of tobacco use Current smoker [facility] Work Phone: Start: 09-25-2021 End: 05-10-2023 Alcohol intake Current non-drinker of alcohol (finding) [facility] Start: 12-27-2019 End: 08-23-2021 History SDOH Alcohol Frequency 1 [facility] Start: 07-08-2020 History SDOH Alcohol Std Drinks 98 [facility] Start: 09-26-2019 End: 07-15-2020 History SDOH Social Connections Phone 5 [facility] Start: 09-26-2019 End: 08-23-2021 History SDOH Social Connections Rastafarian 2 [facility] Start: 09-26-2019 History SDOH Social Connections Meetings 3 [facility] Start: 07-08-2020 History SDOH Physica l Activity MPS 6 [facility] Start: 09-25-2019 Education 21 [facility] Start: 1965 Sex Assigned At Female [facility] Start: 05-18-2022 End: 01-27-2024 Tobacco smoking status NHIS Unknown if ever smoked [facility] Start: 09-17-1986 End: 09-17-1988 History of tobacco use Cigarette Smoker [facility] Start: 09-17-2013 End: 05-15-2025 Cigarettes smoked current (pack per day) - Reported 0.5 [facility] 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 above: 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 Start: 09-17-2013 End: 07-11-2024 Tobacco use and exposure Smokeless tobacco non-user [facility] Exercise History: Exercise History: [facility]; [facility] Work Phone: Comment on above: walk Living Situation: Living Situation: [facility]; [facility] Work Phone: Comment on above: daughter daughter Donte Start: 07-08-2020 End: 05-15-2025 Social connection and isolation panel [facility] Frequency of Communication with Friends and Family Not on file [facility] Do you feel stress - tense, restless, nervous, or anxious, or unable to sleep at night because your mind is troubled all the time - these days [OSQ] Not at all [facility] (I/We) worried wheth er (my/our) food would run out before (I/we) got money to buy more. Never true [facility] Work Phone: In the past 12 month s, was there a time when you were not able to pay the mortgage or rent on time? No [facility] Start: 12-28-2018 Gender identity Identifies as female gender (finding) [facility] Start: 12-28-2018 Sexual orientation Heterosexua l (finding) [facility] Start: 1965 Sex Assigned At Not on file [facility] Start: 04-12-2024 End: 04-19-2024 Alcoholic beverage intake Ex-drinker (finding) [facility] Start: 05-16-2024 End: 06-09-2025 Alcoholic beverage intake Lifetime non-drinker (finding) [facility] Do you belong to any clubs or organizations such as sikh groups, unions, fraternal or athletic groups, or school groups? Yes [facility] Are you now , , , , never or living with a partner? [facility] History of tobacco use Passive smoker [facility] Start: 01-27-2024 End: 07-11-2024 Tobacco smoking status NHIS Never smoked tobacco [facility] Start: 08-26-2021 End: 09-25-2021 Exposure to SARS-CoV-2 (event) Not sure [facility] Start: 05-24-2022 End: 02-21-2025 Sex Female (finding) [facility] How often do you nee d to have someone help you when you read instructions, pamphlets, or other written material from your doctor or pharmacy [SILS] Never [facility] Do you feel stress - tense, restless, nervous, or anxious, or unable to sleep at night because your mind is troubled all the time - these days [OSQ] Very much [facility] NEGATED: Highlighted rowStart: NINF History of tobacco use Passive smoker [facility] Functional Status Date Assessment Result Facility 05-12-2025 Patient Health Quest ionnaire 2 item (PHQ-2) [Reported] [facility] 05-12-2025 Little interest or p yamil in doing things Not at all 05/12/2025 9:07 AM EDT Mychart, Generic Not at all [facility] 05-12-2025 Feeling down, depres sed, or hopeless Not at all 05/12/2025 9:07 AM EDT Mychart, Generic Not at all [facility] Clinical Notes 05-17-2019 to 08-13-2025 Note Date & Type Note Facility 08-13-[address] [facility] 08-13-2025 Progress note [facility] 08-13-2025 Progress note Note Date/Time August 13, 2025 2:01pm [facility] [address] [place] [address] OFFICE VISIT Date of Service: 08/13/25 MR#: [id number] Acct: [id number] Name: LATIA,BRISSA NOBLE Rep #: [id number] : 1965 Provider: Keny Gomez DO Age/Sex: 59/F Location: [facility] [place] Status: Signed Intake Vital Signs 08/14/24 14:34 Height 5 ft 6 in Intake Visit Reasons: 1 Y FU--Barretts esophagus Allergies trimethoprim (From Bactrim) Allergy (Mild, Verified 08/13/25 16:03) dizzy Seasonal Allergies: Uncoded Allergy (Verified 08/13/25 16:03) Sinus congestion Medications ?Medication ?Instructions ?Recorded ?Confirmed ?Type hydrochlorothiazide 12.5 mg tablet 12.5 mg PO DAILY #9 0 tabs 02/19/22 08/13/25 Rx multivitamin 1 tab PO DAILY 08/16/2307/25 History cholecalciferol (vitamin D3) 125 125 mcg PO DAILY 12/1708/13/25 History mcg (5,000 unit) capsule mometasone 50 mcg/actuation nasal 2 spray intranasal D AILY 04/24/24 08/13/25 History spray (Nasonex 24hr Allergy) ursodiol 300 mg capsule 300 mg PO BID #180 caps 06/2408/13/25 Rx metformin 500 mg tablet 500 mg PO QDAY 08/06/2407/25 History levothyroxine 112 mcg capsule 112 mcg PO DAILY #90 cap s 09/28/24 08/13/25 Rx (Tirosint) estradiol 0.025 mg/24 hr 1 patch transdermal 2XW 07/2508/13/25 History semiweekly transdermal patch (Vivelle-Dot) omeprazole 20 mg capsule,delayed 20 mg PO QDAY 5 08/13/25 History release Nurse's Note: Pt was scheduled for EGD and Colonoscopy on 09.06.25 at the end of their appt today. Reviewed prep instructions and which medications to hold prior to procedure with pt in office. A paper copy of Miralax prep instructions were given to pt. Pt denies any questions or concerns at this time. 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 Chronic headaches Goiter Chronic bronchitis Breast lump Bleeding disorder UTI (urinary tract infection) Anemia Surgical History History of lumpectomy of right breast H/O abdominal supracervical subtotal hysterectomy History of appendectomy Hx of nasal septoplasty Hx of oophorectomy History of colonoscopy History of cholecystectomy Hx of umbilical hernia repair Family History Father Hypertension Diabetes CHF (congestive heart failure) Heart disease CAD (coronary artery disease) COPD (chronic obstructive pulmonary disease) Pneumonia Dysphagia Dementia Other Arthritis Osteoporosis Social History Smoking Status: Never smoker alcohol intake: never substance use type: does not use seatbelt use: always do you feel safe at home: Yes additional social history: 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 Endocrinology established 10.02.21 for management of hypothyroidism with thyroidnodules; later diagnosed with insulin resistance. Tirosint started dose increased 06.16.23 to aid in weight loss. Weight loss and fatigue discussed with Brissa Noble reporting that she is eating 1500 calories/day ? carbon cleaner questions this and notes she needs to exercise and has not pursued weight loss education as previously discussed. 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 Plan is to monitor. Recommend f/u in one year, platelet goal >50k WHG established 3.2.22 with FH of mother with significant heart problems; diagnosed with essential HTN and metabolic syndrome. 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 *BGI established 09.14.21 with constipation, abdominal pain and bloating; onset 2011 with symptoms of abdominal pain and mild nausea. PCP recommended fiber increase. Also diagnosed with fatty liver and has been struggling with obesity. ?Previously established with GI who treated for gastritis, esophageal stricture with dilation/Nava?s esophagus, one episode of diverticulitis; PPI caused illfeeling with transaminitis, Carafate ineffective. PCP then referred to functional medicine who diagnosed SEFO and treated with nystatin and eliminationdiet. ? Biochemical ESR, AFP, gastrin, alanin aminotransferase, AST, CMP WNL ? CRP H16.2, TSH H5.34 ? US and elastography 09.28.21 hepatic measurement 19.4cm with fattyinfiltration, stiffness 6.4kPa ? GET 09.29.21 27.72 minutes (12-56) ? EGD 10.13.21 LA Grade A esophagitis, Nava?s +; duodenitis. OV 10.21.21 Feels emotionally better since LV; recently started famotidine whichshe finds helpful. Start Zegerid, Vitamin D, ursodiol; Vit E (epistaxis/nasal congestion). OV 11.19.21 has lost some weight with lifestyle changes and introduction of exercise. Increase ursodiol to BID if tolerated, continue zegerid, start low dose Vit E ? Biochemical LDH, A1c, homocysteine, AMA, LENA comp, ANCA WNL ? ASM H23 OV 3. notes increased stress r/t daughter?s diagnosis of thyroid cancer. Start sucralfate. OV 6. reporting abdominal discomfort/spasms; increased stress continues to be a difficulty. Start hyoscyamine. OV 8. She has been increasing exercise with weight loss focus. OV 12.10.22 Continues with ursodiol, zegerid. Vit E stopped as it is in her multivitamin ? US and elastography .02.13 hepatic measurement 19.1cm fatty infiltration, stiffness 5.8kPa; s/p cholecystectomy ? Biochemical CBC, CMP without pertinent abnormality OV 8..23 there has been a lot of stress in her life with daughters cancer and father?s passing. She has had a resolution of RUQ discomfort and globus sensation/reflux. She will be seeing PCP who is going to make weight loss recommendations and focus on sleep health. Would like to know thoughts regardingsemaglutide. ? Biochemical (PCP) CBC (plt L93), MPO, lipids, CMP, LFT, A1c ? D25 L19.5. ? FIB4 2.05 OV 3.24- Pt is feeling well since last visit OV 9.. pt reports that GI wallace she is feeling okay, she has been having somecongestion and chest heaviness she is trying to get into a upholstery department supervisor to get figured out. She has an appointment this coming week with a upholstery department supervisor at [facility]. Pt reports that she is due for and EGD, but would like to figure respiratory stuff out first before going under for a procedure. OV 10. pt reports that she is seeing a upholstery department supervisor through [facility] and would like to revisit GI concerns and testing. Pt reports constipation, bloating/ pressure in her lower abdomen, and HB. Pt reports she would also like to discuss weight loss options. The patient reports a long-standing history of obesity, fatty liver disease, chronic idiopathic constipation, bloating, and abdominal pain. Surveillance for Nava's esophagus is also ongoing. Previous discussions regarding weight loss have occurred. The patient expresses interest in starting Zepbound for weight management and also requests a colonoscopy due to a recent change in bowel habits. * Weight management:?The patient is interested in initiating Zepbound (tirzepatide), a dual GIP/GLP-1 receptor agonist, to aid in weight loss. * Gastrointestinal symptoms: * Constipation:?The patient has a history of chronic idiopathic constipation. * Bloating and abdominal pain:?Patient reports ongoing issues with bloating and abdominal pain. Zepbound is known to cause gastrointestinal side e ffects like constipation, bloating, and abdominal pain, especially when treatment begins or the dose increases. * Change in bowel habits:?The patient reports a change in bowel habits, which, along with obesity, is an indication for a colonoscopy. * Nava's esophagus:?The patient is here for ongoing surveillance of Nava's esophagus, which is a precursor to esophageal adenocarcinoma. Zepbound may increase gastroesophageal reflux disease (GERD) symptoms, which could impact Nava's. * Fatty liver disease:?The patient has fatty liver disease. Zepbound is not FDA- approved for fatty liver disease, but studies suggest it may help improve the condition through weight loss. ROS Const Constitutional: No fatigue, fever(s) or weight change ENT ENT: No difficulty swallowing Gastro GI: Positive for abdominal pain, bloating, change in bowel habits, constipation,heartburn and excessive flatus; No belching, change in stool character, coffee ground emesis, cramping, diarrhea, difficulty swallowing, feeling full early, incontinent of stools, Vomiting blood/hematemesis, Blood in stool, loose stools, Black,tarry stools, nausea/dyspepsia, pain with swallowing, vomiting or other Musc Musculoskeletal: No joint pain Skin Skin: Positive for dry skin, itchy eyes and rash; No yellowing of the eye Psych Psychiatric: No anxiety and No depression Endo Endocrine: No fatigue or weight change Aller/Imm Allergy/Immunologic: Positive for itchy eyes Chance/Lymp Hematologic/Lymphatic: No easy bleeding or easy bruising Exam Const General: cooperative, healthy appearing, comfortable, no acute distress, well developed and not cushingoid Nutritional Appearance: well nourished and obese Orientation: alert, awake and oriented x3 HENMT Head: normal to inspection Ears: hearing grossly normal bilaterally Nose: external nose normal Mouth: oral mucosae normal Eyes General: appearance normal, both eyes and all related structures Alignment and Position: alignment normal Periorbital: periorbital findings normal Eyelids: eyelids normal Conjunctivae: conjunctivae normal Neck Neck: normal visual inspection Neck mass: No Thyroid: diffusely enlarged and multiple nodules Lymphatic: no lymphadenopathy noted Chest Chest palpation & inspection: normal inspection of the chest Resp Effort & Inspection: normal respiratory effort, able to speak in complete sentences, symmetric chest movement, no audible wheezes and no cough Auscultation: Bilateral: Clear to Auscultation Cardio Rate: regular rate Rhythm: regular rhythm GI Inspection: normal to inspection Skin General: no rashes or lesions noted Neuro General: patient alert, patient awake and patient oriented x3 Cranial Nerves: CN's II-XI intact bilaterally Cognition: normal cognition Speech: speech normal Gait: normal gait Motor: muscle tone normal throughout Extrem General: no edema Psych Appearance: grossly normal Mental Status: mental status grossly normal Mood: congruent mood Affect: normal affect Speech and Movement: speech and movement normal Attitude: cooperative Thought Process: normal Thought Content: normal Judgment: judgment good Assessment and Plan Assessment and Plan (1) Atypical chest pain: Status: Acute (2) Chronic sinusitis: Status: Chronic (3) NAFLD (nonalcoholic fatty liver disease): Status: Chronic (4) Insulin resistance: Status: Acute Plan: Assessment and Plan 1. Obesity and Weight Management * Assessment:?59-year-old female with obesity interested in pharmacotherapy with Zepbound. * Plan: * Review potential benefits and risks of Zepbound for weight loss. Benefits include significant weight loss (15-21% in studies), while risks include gastrointestinal issues (nausea, constipation, bloating, abdominal pain), pancreatitis, gallbladder problems, and the black box warning for thyroid C-cell tumors. * Thoroughly discuss Zepbound's side effects, especially potential worsening of abdominal pain, bloating, and constipation. * Review patient's personal and family history for contraindications, specifically medullary thyroid carcinoma and Multiple Endocrine Neoplasia syndrome type 2 (MEN 2). * Start Zepbound at a 2.5 mg once-weekly dose for 4 weeks to allow the body to adjust and minimize gastrointestinal side effects. * Managed Services Consultant on lifestyle changes, including diet (emphasizing fiber and hydration to manage constipation) and physical activity. * Provide resources for medication cost and client evaluator savings programs, if applicable. * Schedule a follow-up in 4 weeks to assess tolerance and efficacy. 2. Nava's Esophagus * Assessment:?Patient with a history of Nava's esophagus requiring surveil christina. * Plan: * Surveillance:?Continue surveillance endoscopy as per guidelines (every 3?5 years for non-dysplastic Nava's). The exact interval depends on the most recent findings. * Zepbound consideration:?Advise that Zepbound can worsen GERD symptoms. Monitor closely for any new or worsening reflux symptoms while on Zepbound and consider further acid suppression if needed. * Documentation:?Review and document the date of the last endoscopy and findings. 3. Change in Bowel Habits * Assessment:?Change in bowel habits warrants investigation, with a colonoscopy being the gold standard. * Plan: * Colonoscopy referral:?Refer the patient for a colonoscopy to investigate the change in bowel habits. * Zepbound hold:?Instruct the patient to hold Zepbound one week prior to the colonoscopy due to its effect of slowing gastric emptying, which can compromise bowel prep. * Post-procedure instructions:?Advise the patient on how to manage potential post-colonoscopy constipation (hydration, fiber, movement) and when to resume Zepbound, which should be safe once any sedation or immediate complications have resolved. 4. Chronic Idiopathic Constipation, Bloating, and Abdominal Pain * Assessment:?Ongoing symptoms, potentially compounded by the addition of Zepbound. * Plan: * Lifestyle management:?Reinforce the importance of increased fluid intake, dietary fiber, and regular physical activity. * Symptom management:?Discuss zlof-ost-pdowssf options like psyllium husk, stool softeners (docusate sodium), or osmotic laxatives (polyethylene glycol) for constipation. * Monitoring:?Advise the patient to monitor symptoms closely. If severe or persistent abdominal pain, bloating, or unremitting constipation occurs while on Zepbound, a lower dose or discontinuation may be necessary. Educate on warning signs requiring immediate medical attention (severe, unrelenting abdominal pain, especially if it radiates to the back, as this may indicate pancreatitis). 5. Fatty Liver Disease * Assessment:?Known fatty liver disease. * Plan: * Monitor:?Continue routine monitoring of liver function tests. * Zepbound as potential treatment:?Inform the patient about ongoing research suggesting tirzepatide may have benefits for fatty liver disease, particularly MASH, through weight loss. * Lifestyle:?Reinforce the cornerstone of fatty liver disease management, which is lifestyle modification, including weight loss, exercise, and a healthy diet (limiting sugar and processed foods). Orders: Orders ABD Limited w/ Elastography Today K76.0 - Fatty (change of) liver, not elsewhere classified Coding Level of Care Code Off vis,est,level 4 Diagnoses Atypical chest pain R07.89 Chronic sinusitis J32.9 NAFLD (nonalcoholic fatty liver disease) K76.0 Insulin resistance E88.81 08/13/25 1813 <Electronically signed by Keny wylie DO> Date _ Keny Friend DO Benito Signature: Date (if applicable) CC: ~ [facility] Work Phone: 1(533) 560-506410-21-2025 Evaluation note* Diagnosis Onset Date Resolution Status Admit Date Atypical chest pain acute Octob er 2024 11:29am Insulin resistance acute Octobe r 2024 11:29am Chronic sinusitis chronic August 13, 2025 11:29am NAFLD (nonalcoholic fatty li randy disease) chronic August 13 11:29am Thrombocytopenia chronic August 13, 2025 3:09pm Skin cancer resolved August 13, 2025 3:09pm [facility] Work Phone: [phone]) 103-103910-14-2025 Telephone encounter Note* Telephone Encounter - Maci Kimbrough - 08/06/2025 7:50 AM EDT Cannot auth into 2025 yet, too soon. [id number] Miscellaneous Notes* Telephone Encounter - Maci Kimbrough - 08/06/2025 7:50 AM EDT Cannot auth into 2025 yet, too soon. * Telephone Encounter - Archana Ovalles - 08/05/2025 5:07 PM EDT Your patient has been scheduled for their CT chest on 01/15/[address] [place] [address] . If testing requires an insurance authorization, the authorization must be in place 72 hours prior to the scheduled test or testing will be cancelled. Thank you, Central Scheduling documented in this [facility]10-13-2025 Telephone encounter Note* Telephone Encounter - Archana Ovalles - 08/05/2025 5:07 PM EDT Your patient has been scheduled for their CT chest on 01/15/[address] [place] [address] . If testing requires an insurance authorization, the authorization must be in place 72 hours prior to the scheduled test or testing will be cancelled. Thank you, Central Scheduling [place] [id number] Telephone encounter Note* Telephone Encounter - Otilia Whitley - 07/29/2025 2:54 PM EDT Error [place] [id number] Miscellaneous Notes* Telephone Encounter - Otilia Whitley - 07/29/2025 2:54 PM EDT Error documented in this [facility]10-06-2025 Telephone encounter Note* Telephone Encounter - Otilia Whitley - 07/29/2025 2:47 PM EDT Patient called wanting to know next steps after her CT of the Chest. Dr. Maldonado states she needs a repeat CT of the Chest in 6 months. Patient given Centralized Scheduling telephone number and Dr. Maldonado will place order of CT into [facility] so patient can call and schedule. [place] [id number] Miscellaneous Notes* Telephone Encounter - Otilia Whitley - 07/29/2025 2:47 PM EDT Patient called wanting to know next steps after her CT of the Chest. Dr. Maldonado states she needs a repeat CT of the Chest in 6 months. Patient given Centralized Scheduling telephone number and Dr. Maldonado will place order of CT into [facility] so patient can call and schedule. documented in this [facility]08-21-2025 Telephone encounter Note* Telephone Encounter - Merly Solano - 06/13/2025 11:05 AM EDT Patient has been scheduled, notified and in agreement. [id number] Miscellaneous Notes* Telephone Encounter - Merly Solano - 06/13/2025 11:05 AM EDT Patient has been scheduled, notified and in agreement. * Telephone Encounter - HARRIET Mays CNP - 06/12/2025 5:18 PM EDT I spoke Brissa Noble about her results and recommendations. Plan for full breast MRI in 6 months unless her qep-ax-jwxamp cost is too high then we will plan for fast breast MRI documented in this [facility]08-21-2025 History of Present illness Narrative* Lizzette Ch MA - 06/13/2025 10:15 AM EDT A pot liner was offered to be present during her exam. The patient: declined Here for annual. Pt has hyst. Negative for BRCA gene. Will have to repeat breast MRI in 6 months per breast center. Mammogram 05/10/25 Breast MRI 06/12/25 Neg pap/neg hpv 06/13/24 * Martin Hyatt MD - 06/13/2025 10:15 AM EDT Brissa Jeffery 06/13/2024 59 y.o. Primary Care Physician: Sudhir Pedraza DO Chief Complaint Patient presents with Annual Exam HPI : Brissa Jeffery is a 59 y.o. 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 Carter who consulted with [employer] Dr. Lewis - follow with US annually and watch for sxs - GI workup with EGD and image pancreas Sees GI, had PET scan Last US 2024 Impression Right ovary surgically absent Left ovary not visualized No pelvic fluid Spoke with Dr. Krueger, can do US prn symptoms. Last colonoscopy 2018 Preventative Health Testing: Date of Last Pap Smear: 2023 neg pap and HPV Goes to high risk breast clinic - had a lesion on the skin of her breast that was skin adenocarcinoma. Excision by derm. Now seeing Dr. Garza as well 2019 Multigene genetic testing negative 01/2024- Skin adenocarcinoma on breast skin. Not a breast cancer 04/2025 Mammo 05/2025 MRI - needs repeat in 6 months OB History Para Term AB Living 1 1 1 1 SAB IAB Ectopic Multiple Live Births 1 # Outcome Date GA Lbr Champ/2nd Weight Sex Type Anes PTL Lv 1 Term Vag-Spont Medical History[1] Surgical History[2] Family History[3] Social History Socioeconomic History Marital status: Spouse name: Not on file Number of children: Not on file Years of education: Not on file Highest education level: Not on file Occupational History Not on file Tobacco Use Smoking status: Never Passive exposure: Never Smokeless tobacco: Never Vaping Use Vaping status: Never Used Substance and Sexual Activity Alcohol use: Never Drug use: Never Sexual activity: Not Currently Partners: Male control/protection: Surgical Comment: Hyst Other Topics Concern Not on file Social History Narrative Not on file Social Drivers of Health Financial Resource Strain: Low Risk (05/15/2025) Overall Financial Resource Strain (CARDIA) Difficulty of Paying Living Expenses: Not hard at all Food Insecurity: No Food Insecurity (05/15/2025) Hunger Vital Sign Worried About Running Out of Food in the Last Year: Never true Ran Out of Food in the Last Year: Never true Transportation Needs: No Transportation Needs (05/15/2025) PRAPARE - Transportation Lack of Transportation (Medical): No Lack of Transportation (Non-Medical): No Physical Activity: Insufficiently Active (05/15/2025) Exercise Vital Sign Days of Exercise per Week: 5 days Minutes of Exercise per Session: 20 min Stress: Stress Concern Present (05/15/2025) [employer] [place] [employer] - Occupational Stress Questionnaire Feeling of Stress : Very much Social Connections: Socially Integrated (05/15/2025) Social Connection and Isolation Panel [NHANES] Frequency of Communication with Friends and Family: More than three times a week Frequency of Social Gatherings with Friends and Family: More than three times a week Attends Orthodox Services: More than 4 times per year Active Member of Clubs or Organizations: Yes Attends Club or Organization Meetings: More than 4 times per year Marital Status: Intimate Partner Violence: Patient Declined (05/15/2025) Humiliation, Afraid, Rape, and Kick questionnaire Fear of Current or Ex-Partner: Patient declined Emotionally Abused: Patient declined Physically Abused: Patient declined Sexually Abused: Patient declined Housing Stability: Low Risk (05/15/2025) Housing Stability Vital Sign Unable to Pay for Housing in the Last Year: No Number of Times Moved in the Last Year: 1 Homeless in the Last Year: No MEDICATIONS: Current Medications[4] ALLERGIES: Allergies as of 06/13/2025 - Reviewed 06/13/2025 Allergen Reaction Noted Sulfamethoxazole-trimethoprim Other and Unknown 03/21/2018 Seasonal 05/16/2024 Trimethoprim Dizziness 08/14/2024 REVIEW OF SYSTEMS: CONSTIUTIONAL: No weight change or fatigue CV: No Chest Pain with Exertion, Palpitations, Syncope, Edema, Arrhythmia RESPIRATORY: No SOB or Cough, BREAST: No breast abnormalities or lumps GI: No Indigestion, Heartburn, Nausea, vomiting, Diarrhea, Constipation,Bloating or Bowel Changes; No Bloody Stools or melena : No Dysuria, Hematuria or Nocturia. No Urinary Incontinence or Vaginal Discharge,vaginal bleeding, or dysparuenia. NEURO: No CVA, Migraines, Seizure Hx, or Limb Weakness DERM: No Rash, Itching, Mole Changes or Cancer PSYCH: No Depression, Homicidal thoughts,suicidal thoughts, or anxiety MUSCULOSKELETAL: No Arthralgia, Arthritis HEME and LYMPH :No Lymphoma, Von Willebrand's, Hemophillia or Bleeding History PHYSICAL EXAM: Vitals: 06/13/25 1009 BP: 124/80 Pulse: 84 Weight: 268 lb (122 kg) Height: 5' 6 (1.676 m) Body mass index is 43.26 kg/m . [employer]EMAN: BREASTS: normal, no masses, tenderness or skin changes. EXTERNAL GENITALIA: normal female structures VAGINA: atrophic, no lesions CERVIX: normal UTERUS: surgically absent ADNEXA: normal, non tender no masses. URETHRA: normal. nontender BLADDER: non tender. PELVIC SUPPORT DEFECTS: Normal support of vagina and bladder ANUS/PERINEUM: no hemorrhoids, masses or warts noted. GENERAL EXAM CONSTITUTIONAL: Well developed, well nourished, well groomed. no acute distress NECK: no thyromegaly, supple. CARDIOVASCULAR: normal rate and rhythm, no edema LUNGS: Normal effort, normal lung sounds ABDOMEN:soft, non-tender, non-distended, no hepatospleenomegaly NEUROLOGICAL: no gross motor or sensory deficits noted. . LYMPH NODES: no lymphadenapathy axillary or inguinal. MUSCULOSKELETAL: normal gait, no cyanosis. PSYCHIATRIC Normal mood and affect, A&O x3. ASSESMENT/PLAN: Brissa Noble was seen today for annual exam. Diagnoses and all orders for this visit: Encounter for gynecological examination without abnormal finding (Primary) Follow up in about 1 year (around 06/13/2026) for Annual. Routine health maintenance per patients PCP. [1] Past Medical History: Diagnosis Date Adenocarcinoma (HCC) 02/17/2024 skin of right breast Allergic rhinitis BRCA1 negative BRCA2 negative Disease of thyroid gland Fibrocystic breast GERD (gastroesophageal reflux disease) 09/13 Headache Hypertension Insomnia Liver disease 09/13 Lung nodule Obesity Prediabetes Sleep apnea 03/2024 Sleep apnea, obstructive 2018 Snoring [2] Past Surgical History: Procedure Laterality Date APPENDECTOMY BREAST BIOPSY Right 02/17/2024 Adenocarcinoma BREAST LUMPECTOMY Right 02/17/2024 2nd re-excision on 03/29/2024 CHOLECYSTECTOMY COLONOSCOPY 2018 HERNIA REPAIR HYSTERECTOMY 2007 supra-cervical hyst for AUB OOPHORECTOMY Right 2019 SEPTOPLASTY [3] Family History Problem Relation Name Age of Onset Diabetes Mother Gina Emphysema Mother Gina Heart failure Mother Gina Emphysema Father Karson Hypertension Father Karson Breast cancer Mother's Sister Ximena 55 Breast cancer Mother's Sister Brandy 55 Lung cancer Mother's Brother 55 Breast cancer Paternal Grandmother Alia 55 Stomach cancer Paternal Grandmother Alia [4] Current Outpatient Medications Medication Sig Dispense Refill B Complex-Folic Acid (B Complex Vitamins, w/ FA,) capsule Take 1 capsule by mouth daily. cholecalciferol (Vitamin D-3) 125 MCG (5000 UT) capsule Take 5,000 Units by mouth in the morning. Vitamin C and Zinc combo. fluticasone (Flonase Allergy Relief) 50 MCG/ACT nasal spray Every 24 hours. hydroCHLOROthiazide (Microzide) 12.5 MG capsule Take 1 capsule (12.5 mg) by mouth daily. 90 capsule3 ketoconazole (NIZOral) 2 % cream APPLY A THIN LAYER TO THE AFFECTED AREAS UNDER BREASTS AND GROIN TWICE A DAY NEEDED. levothyroxine (Tirosint) 112 MCG capsule Take 1 capsule (112 mcg) by mouth every morning (before breakfast). 90 capsule 3 metFORMIN XR (Glucophage-XR) 500 MG 24 hr tablet Take 2 tablets (1,000 mg) by mouth daily (with breakfast). Multiple Vitamins-Minerals (Therapeutic-M) tablet Take 1 tablet by mouth daily. omeprazole (PriLOSEC) [address] capsule Take 20 mg by mouth every morning (before breakfast). Do notcrush or chew. oxymetazoline (Nasal Relief) 0.05 % nasal spray Administer 2 sprays into affected nostril(s) twice a day. Afrin Probiotic Product (PROBIOTIC DAILY PO) Take by mouth daily. Triamcinolone Acetonide (NASACORT AQ NA) Administer 2 sprays into each nostril Nightly. ursodiol (Actigall) 300 MG capsule Take 1 capsule (300 mg) by mouth 2 times daily. 180 capsule 3 NON FORMULARY daily. SUPER DIGESTIVE ENZYME No current facility-administered medications for this visit. documented in this [facility]08-20-2025 Telephone encounter Note* Telephone Encounter - sammy SanchezAlexanderHARRIET morin CNP - 06/12/2025 5:18 PM EDT I spoke Brissa Noble about her results and recommendations. Plan for full breast MRI in 6 months unless her sgd-en-uauvhj cost is too high then we will plan for fast breast MRI [facility] [id number] History of Present illness Narrative* AlexanderHARRIET morin CNP - 05/30/2025 10:30 AM EDT Images from the original note were not included. Brissa Mckenna Latia is a 59 y.o. YO F here for follow up high risk breast cancer surveillance Breast History: 1. She was first seen in the breast center on 04/12/[address] Garza for history of right breast skin lesion which demonstrated adenocarcinoma. This was treated with complete excision to negative margins by her ent surgeon on 03/12/24. She sees dermatology every 6 months 2. She has a family history of breast cancer in 2 maternal aunts at 55 and in her paternal grandmother at age 55 Lifetime risk of breast cancer by Tyrer-Cuzick v8: 23%(recalculated today) High Risk follow up: Last Mammogram: 05/10/2025 BI-RADS 2 Last Breast MRI: 05/17/20242701-HU-YAUW 1 Genetic testin05/2018-BRACAnalysis with [employer] through [employer] was negative 3.Today, she has no breast concerns. She denies breast mass, nipple change, nipple discharge or skin change. We discussed continued screening with breast MRI. She is agreeable to her next breast MRI and then we will plan to defer breast MRIs. 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 Breast imaging: Mammogram 05/10/2025 TISSUE DENSITY: BIRADS B - There are scattered areas of fibroglandular density. FINDINGS: No suspicious masses, architectural distortions or suspiciously clustered microcalcifications are identified. There is no evidence of skin thickening or nipple retraction. There are benign bilateral breast calcifications. There are no significant changes when compared with prior studies. IMPRESSION: No mammographic evidence of malignancy. ASSESSMENT: Category 2 Benign RECOMMENDATION: Routine screening mammogram in 1 year. Bilateral Breast MRI 05/17/2024 FINDINGS: There is mild bilateral background enhancement. Right Breast: There is no suspicious mass or non-mass enhancement in the right breast. Left Breast: There is no suspicious mass or non-mass enhancement in the left breast. Other: No axillary or internal mammary lymphadenopathy is appreciated. A T2 bright liver lesion is seen, most consistent with a cyst or hemangioma. IMPRESSION: No MRI evidence of malignancy in either breast. No findings seen to explain the skin changes. ASSESSMENT: Category 1 Negative RECOMMENDATION: Breast MRI in 1 year Bilateral Clinical correlation Right Pathology: Case Report Surgical Pathology Report Case: [id number] Authorizing Provider: Elvin Cortez MD Collected: 03/12/2024 02:01 PM Ordering Location: [facility] Received: 03/12/2024 02:03 PM [facility] Pathologist: Reg Neumann MD Specimen: Slide(s), [address] [id number] FINAL DIAGNOSIS A. 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 Genetics: Family Cancer History includes: Medical History includes: has a past medical history of Adenocarcinoma (HCC) (02/17/2024), Allergic rhinitis, BRCA1 negative,BRCA2 negative, Disease of thyroid gland, Fibrocystic breast, GERD (gastroesophageal reflux disease) (09/13), Headache, Hypertension, Insomnia, Liver disease (09/13), Lung nodule, Obesity, Prediabetes, Sleep apnea (03/2024), Sleep apnea, obstructive (2017), and Snoring. Surgical History includes : Surgical History[1] Medications include: Current Medications[2] Allergies include: Allergies as of 05/30/2025 - Reviewed 05/30/2025 Allergen Reaction Noted Sulfamethoxazole-trimethoprim Other and Unknown 03/21/2018 Seasonal 05/16/2024 Trimethoprim Dizziness 08/14/2024 Review of Systems Constitutional: Negative for activity change, appetite change, chills, fatigue, fever and unexpected weight change. Eyes: Negative for visual disturbance. Respiratory: Negative for apnea and shortness of breath. Cardiovascular: Negative for chest pain. Gastrointestinal: Negative for nausea. Genitourinary: Negative for dyspareunia and vaginal bleeding. Musculoskeletal: Negative for arthralgias, back pain, gait problem and joint swelling. Skin: Negative for rash. Neurological: Negative for dizziness and headaches. Psychiatric/Behavioral: The patient is not nervous/anxious. BP 120/71 (BP Location: Right arm, Patient Position: Sitting) Pulse 90 Temp 36.4 C (97.5 F) (Temporal) Ht 5' 6 (1.676 m) Wt 274 lb (124 kg) BMI 44.22 kg/m Physical Exam Constitutional: General: She is not in acute distress. Appearance: Normal appearance. HENT: Head: Normocephalic and atraumatic. Pulmonary: Effort: Pulmonary effort is normal. No respiratory distress. Chest: Breasts: Right: No swelling, inverted nipple, mass, nipple discharge or skin change. Left: Normal. No swelling, inverted nipple, mass, nipple discharge or skin change. Musculoskeletal: Cervical back: Neck supple. Lymphadenopathy: Cervical: Right cervical: No superficial cervical adenopathy. Left cervical: No superficial cervical adenopathy. Upper Body: Right upper body: No axillary adenopathy. Left upper body: No axillary adenopathy. Skin: General: Skin is warm and dry. Neurological: General: No focal deficit present. Mental Status: She is alert and oriented to person, place, and time. Psychiatric: Mood and Affect: Mood normal. Behavior: Behavior normal. Assessment: Diagnosis Plan 1. Increased risk of breast cancer 2. Family history of breast cancer 3. Encounter for examination and observation for other specified reasons 4. Encounter for screening mammogram for breast cancer Bilateral screening mammogram with tomosynthesis 5. History of skin cancer Right breast This is a 59 y.o. woman who has an increased risk of breast cancer estimated by the Tyrer Cuzick [id number] of 23%. Recommend continued high risk follow up. Patient is agreeable to Clinical Breast Exams every 6-12 months. She will continue annual mammograms and to 1 more breast MRI. Today, we reviewed breast cancer risk reduction including a plant based diet, daily physical activity, limiting alcohol, and maintaining a lean body mass. Chemoprevention deferred. Plan: Screening Candy-April 2026 Breast MRI-scheduled 08/16/2025 Clinical Breast Exam every 6-12 months Follow up in September 2026 Call with any questions or breast concerns Encourage self breast awareness and SBE Ashley Alexander, HARRIET - REFINERY PROCESS ENGINEER Please disregard any typographical errors. This note was dictated using voice recognition software. I spent 30 minutes total on the day of the visit obtaining history, reviewing imaging and laboratory results, performing a physical exam and providing patient education and counseling and documenting. [1] Past Surgical History: Procedure Laterality Date APPENDECTOMY BREAST BIOPSY Right 02/17/2024 Adenocarcinoma BREAST LUMPECTOMY Right 02/17/2024 2nd re-excision on 03/29/2024 CHOLECYSTECTOMY COLONOSCOPY HERNIA REPAIR HYSTERECTOMY 2006 age 41 OOPHORECTOMY Right 2019 SEPTOPLASTY [2] Current Outpatient Medications Medication Sig Dispense Refill cholecalciferol (Vitamin D-3) 125 MCG (5000 UT) capsule Take 5,000 Units by mouth in the morning. Vitamin C and Zinc combo. hydroCHLOROthiazide (Microzide) 12.5 MG capsule Take 1 capsule (12.5 mg) by mouth daily. 90 capsule3 ketoconazole (NIZOral) 2 % cream APPLY A THIN LAYER TO THE AFFECTED AREAS UNDER BREASTS AND GROIN TWICE A DAY NEEDED. levothyroxine (Tirosint) 112 MCG capsule Take 1 capsule (112 mcg) by mouth every morning (before breakfast). 90 capsule 3 metFORMIN XR (Glucophage-XR) 500 MG 24 hr tablet Take 2 tablets (1,000 mg) by mouth daily (with breakfast). NON FORMULARY daily. SUPER DIGESTIVE ENZYME omeprazole (PriLOSEC) [address] capsule Take 20 mg by mouth every morning (before breakfast). Do notcrush or chew. oxymetazoline (Nasal Relief) 0.05 % nasal spray Administer 2 sprays into affected nostril(s) twice a day. Afrin Probiotic Product (PROBIOTIC DAILY PO) Take by mouth daily. Triamcinolone Acetonide (NASACORT AQ NA) Administer 2 sprays into each nostril Nightly. ursodiol (Actigall) 300 MG capsule Take 1 capsule (300 mg) by mouth 2 times daily. 180 capsule 3 No current facility-administered medications for this visit. documented in this [facility]08-05-2025 History of Present illness Narrative* Ilsa Luke MD - 05/28/2025 11:00 AM EDT Surgical Oncology Pre-Operative History and Physical: Thyroid Name: Brissa Jeffery Pre-Op Diagnosis: Chief Complaint Patient presents with New Patient Wants to discuss RFA vs surgery for her thyroid nodules. Denies any complaints. Date Pre-Op Visit :05/28/2025 Surgeon: Demetri Cartagena MD . Referring Provider: Asher Sterling Primary Care Provider: Sudhir Pedraza History of Present Illness: Brissa Jeffery is a 59 y.o. female presents to [facility] on [facility]2025 for surgical evaluation of her thyroid nodules and was referred by Asher Sterling. This was first diagnosed in 2004. She self-palpated nodules in 2004 and underwent ultrasound. Sincethat time she has had multiple ultrasounds in surveillance and biopsies about every 2 years, with last being in January. She initially followed with Dr. Fuentes who referred her to Dr. Moraes who recommended follow-up at [facility] but was unsuccessful in scheduling appointments there. 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 A recent ultrasound showed a multiple thyroid nodules on the right and multiplethyroid nodules on the left. She underwent an FNA biopsy 02/19/25, result benign. She has sleep apnea for which she uses BiPAP In addition, she reports the following thyroid related symptoms: Hoarseness or voice changes no Trouble Swallowing no Neck Pain no Neck Pressure no Coughing no Past head and neck radiation exposure: no Previous surgery on neck no Family history of parathyroid disorders: no Family history of thyroid or adrenal disease: no Blood thinners: no She does not have a history of gastric bypass Past Medical History: Past Medical History: Diagnosis Date Arthritis Diabetes mellitus Essential hypertension, benign GERD (gastroesophageal reflux disease) Hypothyroidism Liver disease Multiple thyroid nodules LINDSAY (obstructive sleep apnea) Past Surgical History: Past Surgical History: Procedure Laterality Date APPENDECTOMY CHOLECYSTECTOMY HERNIA REPAIR PARTIAL HYSTERECTOMY RESECTION OVARY WEDGE OR BISECTION Right Removed right ovary SEPTOPLASTY Family History: The family history includes Breast Cancer in her maternal aunt, maternal aunt, and paternal grandmother; Cancer- Other in her paternal grandmother; Diabetes in her maternal grandmother and mother; Heart Failure in her mother; Hypertension in her father and mother; Lung Cancer in hermaternal uncle; Thyroid Cancer in her daughter; Vision Problems in her father. Social History: She reports that she has never smoked. She has never used smokeless tobacco. She reports no history of alcohol use. 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 Self employed, so had to pay out of pocket for this visit. Allergies: Allergies Allergen Reactions *Seasonal Sulfa Antibiotics Rash Medications: Current Outpatient Medications: B Complex capsule, Take 1 capsule by mouth daily., Disp: , Rfl: DIGESTIVE ENZYMES PO, Take 1 capsule by mouth daily., Disp: , Rfl: hydroCHLOROthiazide 12.5 MG tablet, Take 1 tablet by mouth daily., Disp: , Rfl: Levothyroxine Sodium 112 MCG capsule, Take 1 capsule by mouth daily., Disp: , Rfl: metFORMIN-XR 500 MG Tab SR 24 HR, Take 2 tablets by mouth Daily (with dinner)., Disp: , Rfl: Multiple Vitamins-Minerals (Multivitamin w/ minerals, THERAPEUTIC-M,) tablet, Take 1 tablet by mouth daily., Disp: , Rfl: omeprazole [address] capsule, Take 1 capsule by mouth daily., Disp: , Rfl: ursodiol 300 MG capsule, Take 1 capsule by mouth Twice daily., Disp: , Rfl: Vitamin D3 125 MCG (5000 UT) capsule, Take 1 capsule by mouth daily., Disp: , Rfl: Review of Systems: Constitutional: Weight loss no, fatigue no Cardiovascular: palpitations no Respiratory: shortness of breath no Genitourinary: changes in menstrual cycles no Neuro: tremor no, difficulty sleeping no Psych: mood problems no Endo: heat intolerance yes - some heat intolerance Physical Exam: BP 122/87 (BP Location: Left arm, BP Position: Sitting) Pulse 94 Temp 98.1 F (36.7 C) (Infrared) Resp 18 Ht 1.676 m (5' 6) Wt 124.5 kg (274 lb 8 oz) SpO2 97% BMI 44.31 kg/m Smoking Status Never Constitutional: Well-appearing, no distress Eyes: Extraocular movements inatact, no proptosis or lid lag Voice: No hoarseness ENT: Mucous membranes moist Thyroid: The thyroid is not visible. No Palpable bilateral nodule(s) are present, and thyroid is soft, and is mobile with deglutition; cervical or supraclavicular lymphadenopathy is not present Heart: Regular rate and rhythm, no murmurs Lungs: Clear to auscultation bilaterally Extremities: No edema Psych: Normal affect Related scans: Thyroid US 01/21/25 FINDINGS: Right Lobe: Echotexture: Heterogenous Size: 2.2 x 1.9 x 4.7 cm. Left Lobe: Echotexture: Heterogenous Size: 2.7 x 2.3 x 4.6 cm. Isthmus: 0.3 centimeters in thickness. Thyroid nodules are as follows: Location: Right inferior thyroid lobe Size: 0.9 x 0.9 x 1.0 cm Composition: Solid Echogenicity: Isoechoic Margins: Smooth Calcifications: None Level of suspicion: TI-RADS* 3: Mildly Suspicious (<5% chance of malignancy) ACR Recommendation: No follow-up indicated based on nodule size Comparison to prior exam: Stable to slightly decreased in size since prior. Location: Right inferior thyroid lobe Size: 0.5 x 1.0 x 0.7 cm Composition: Solid Echogenicity: Isoechoic Margins: Smooth Calcifications: None Level of suspicion: TI-RADS* 3: Mildly Suspicious (<5% chance of malignancy) ACR Recommendation: No follow-up indicated based on nodule size Comparison to prior exam: Stable to slightly decreased in size since prior. Location: Left mid/inferior thyroid lobe Size: 1.9 x 2.0 x 2.9 cm Composition: Solid Echogenicity: Hypoechoic Margins: Smooth Calcifications: None Level of suspicion: TI-RADS* 4: Moderately Suspicious (5-20% chance of malignancy) ACR Recommendation: FNA biopsy Comparison to prior exam: Decrease in size since prior, previously measured up to 3.4 cm. This may be due to differences in measurement techniques. Originally measured up to 3.1 cm in 2019. Location: Left inferior thyroid lobe Size: 0.4 x 1.0 x 1.0 cm Composition: Solid Echogenicity: Hypoechoic Margins: Smooth Calcifications: None Level of suspicion: TI-RADS* 4: Moderately Suspicious (5-20% chance of malignancy) ACR Recommendation: Five years of documented stability, no further follow-up indicated. Comparison to prior exam: No change since prior. Originally measured up to 1.0 cm in 2020. Cervical Lymph nodes: None 03/18/21 RESULT: Right Lobe: 1.9 x 2.4 x 5.7 cm; heterogeneous with numerous nodules, expected vascular flow. Left Lobe: 2.8 x 2.8 x 5.6 cm; heterogeneous with numerous nodules, expected vascular flow. Isthmus: 0.3 cm The most suspicious thyroid nodule(s) (up to four) as below: NODULE 1: Location: Right lower pole Size: 1.0 x 1.1 x 1.4 cm, previously 0.7 x 1.4 x 1.4 cm Characteristics: Composition: Solid or almost completely solid, 2 points Echogenicity: Isoechoic, 1 point Shape: [id number], 0 points Margin: Smooth, 0 points Echogenic foci (add points for all that apply): None, 0 points Internal vascularity: present Interval growth: No significant interval change when accounting for differences in measurement technique TI-RADS Category: TR3 ACR Recommendation: TI-RADS 4 nodule. FNA is recommended. NODULE 2: Location: Right lower pole Size: 0.6 x 1.3 x 1.2 cm, previously 1.0 x 1.0 x 1.2 cm Characteristics: Composition: Solid or almost completely solid, 2 points Echogenicity: Isoechoic, 1 point Shape: [id number], 0 points Margin: Lobulated or irregular, 2 points Echogenic foci (add points for all that apply): None, 0 points Internal vascularity: present Interval growth: No significant interval change when accounting for differences in measurement technique. TI-RADS Category: TR4 ACR Recommendation: TI-RADS 4 nodule. Follow up imaging in 1, 2, 3 and 5 years is advised. NODULE 3: Location: Left midpole Size: 2.2 x 2.5 x 3.4 cm, previously 2.2 x 2.3 x 3.1 cm Characteristics: Composition: Solid or almost completely solid, 2 points Echogenicity: Hypoechoic, 2 points Shape: Vzxjq-ezfv-fgcz, 0 points Margin: Smooth, 0 points Echogenic foci (add points for all that apply): None, 0 points Internal vascularity: present Interval growth: Slight interval increase in size. TI-RADS Category: TR4 ACR Recommendation: TI-RADS 4 nodule. FNA is recommended. NODULE 4: Location: Left lower pole Size: 0.8 x 0.7 x 1.0 cm, previously 0.5 x 1.0 x 1.0 cm Characteristics: Composition: Solid or almost completely solid, 2 points Echogenicity: Hypoechoic, 2 points Shape: Dqexoc-nbcz-cqva, 3 points Margin: Smooth, 0 points Echogenic foci (add points for all that apply): None, 0 points Internal vascularity: present Interval growth: Not substantially changed when accounting for differences in measurement technique. TI-RADS Category: TR5 ACR Recommendation: TI-RADS 5 nodule. FNA is advised. 04/15/20 RESULT: Right Lobe: 5.5 x 2.2 x 2.4 cm; heterogeneous with numerous nodules, expected vascular flow. Left Lobe: 5.1 x 2.6 x 2.6 cm; heterogeneous with numerous nodules, expected vascular flow. Isthmus: 0.4 cm The most suspicious thyroid nodule(s) (up to four) as below: NODULE 1: Location: Right lower pole Size: 1.2 x 1.0 x 1.0 cm Characteristics: Composition: Solid or almost completely solid, 2 points Echogenicity: Hypoechoic, 2 points Shape: Vlslw-gizr-jbgt, 0 points Margin: Smooth, 0 points Echogenic foci (add points for all that apply): None, 0 points Internal vascularity: present Interval growth: Stable TI-RADS Category: TR4 ACR Recommendation: TI-RADS 4 nodule. Follow up imaging in 1, 2, 3 and 5 years is advised. NODULE 2: Location: Right lower pole Size: 1.4 x 0.7 x 1.4 cm Characteristics: Composition: Solid or almost completely solid, 2 points Echogenicity: Isoechoic, 1 point Shape: Pdkou-sonk-ousj, 0 points Margin: Smooth, 0 points Echogenic foci (add points for all that apply): None, 0 points Internal vascularity: present Interval growth: Stable TI-RADS Category: TR3 ACR Recommendation: TI-RADS 3 nodule. No FNA or further imaging is advised. NODULE 3: Location: Left mid Size: 3.1 x 2.2 x 2.3 cm Characteristics: Composition: Solid or almost completely solid, 2 points Echogenicity: Hypoechoic, 2 points Shape: Mrdxr-ylmx-zknn, 0 points Margin: Ill-defined, 0 points Echogenic foci (add points for all that apply): Macrocalcifications, 1 point Internal vascularity: present Interval growth: Stable TI-RADS Category: TR4 ACR Recommendation: TI-RADS 4 nodule. FNA is recommended. NODULE 4: Location: Left lower pole Size: 1.0 x 1.0 x 0.5 cm Characteristics: Composition: Solid or almost completely solid, 2 points Echogenicity: Hypoechoic, 2 points Shape: Uucpc-etyk-mspv, 0 points Margin: Smooth, 0 points Echogenic foci (add points for all that apply): None, 0 points Internal vascularity: absent Interval growth: Stable TI-RADS Category: TR4 ACR Recommendation: TI-RADS 4 nodule. Follow up imaging in 1, 2, 3 and [address] scan Labs: Date TSH Free T4 Free T3 Total T3 Tg TgAb TPO TSI TRAB 01/17/25 2.64 08/31/24 2.033 06/07/24 2.69 07/06/21 4.35 03/17/21 5.39 1.2 3 Pertinent pathology / cytology: 02/19/25 Final Diagnosis A - Thyroid, Left - Fine Needle Aspirate: Diagnostic Category: BENIGN. Benign follicular nodule Assessment & Plan: Assessment: Ms. Jeffery is a 59-year-old female with Hashmito's Thyroiditis who has been undergoing surveillancesince 2004 with multiple biopsies of left-sided nodules which have returned negative. Patient is onlevothyroxine of 112mcg. We discussed continued surveillance versus partial thyroidectomy versus total thyroidectomy versus RFA and associated risks and benefits. Given her daughter's history of thyroid cancer would favor surgical intervention. We discussed that her dominant lesion is amenable to RFA however it would have little to no affect on her need for levothyroxine and she would need continued surveillance. Patient has [place] insurance and is out of network therefore would like to further consider options. Please refer to Dr Cartagena's portion of note Plan: 1. Patient will consider options and follow-up PRN Ilsa Luke MD Endocrine Surgery See Dr. Cartagena's portion of the note for further information. Attestation: The patient was seen and examined with Dr. Luke. I agree with their history, exam, assessment, and plan. In summary, she has long standing hypothyroidism (likely Anushka's) and a dominant 3.1 cm left thyroid nodule. Recent FNA was negative. She has had this followed since 2004. She does not appear to be having local compressive symptoms. Her daughter had metastatic follicular thyroid cancer. The patient is tired of dealing with this, but also does not want surgery, as she recovers slowly from surgery, and had had quite a few over the years. She is hear to discuss RFA as an option. We discussed the fact that RFA would probably decrease it size, but would not eliminate continued observation. Given her daughter's history, I would favor surgery. She is also not sure about coverage for RFA. Aftera long discussion, she wants to think about her options and will let us know if she wants to pursuefurther treatment here. All questions answered. We discussed the pathophysiology and natural history of a multinodular goiter. We discussed the lowbut increased risk of malignancy. We discussed the treatment options including continued observation with serial ultrasound examinations, fine-needle aspiration of the dominant/concerning nodule(s), and surgical resection. We discussed in certain circumstances another approach is radio- frequency ablation of the most dominant nodule(s). We discussed the advantages and disadvantages of each option.We discussed the indications for surgery including, but not limited to: local compressive symptoms,cosmetic appearance of goiter, ongoing growth, or concern for malignancy. We discussed the advantages and disadvantages of having a unilateral thyroid lobectomy versus a total thyroidectomy. We discussed the benefits of a thyroid lobectomy and total thyroidectomy, as well as frequently occurring and significant risks, including but not limited to bleeding, infection, damage to the recurrent laryngeal nerves, permanent hypocalcemia, and anesthetic complications. We discussed the intraoperative evaluation of the thyroid lobe after its removal, and possible completion thyroidectomy depending on the preliminary pathologic evaluation. We also discussed the possible needfor a completion thyroidectomy at a later date depending on the final pathology results. We discussed the fact that when a lobectomy is performed there is still a possibility for the need for lifelong thyroid hormone replacement. We also discussed the absolute need for lifelong thyroid hormone replacement if a total thyroidectomy is performed. We discussed the consequences of no treatment. I gavethe patient an opportunity to ask questions and to receive additional information as requested. Thepatient was advised that it is not possible to guarantee results of the procedure. We discussed the treatment options including radiofrequency ablation. We discussed its potential todecrease nodule size, the need for assistant terminal manager follow- up, and the possibility of regrowth. The advantages of RFA over surgery, such as a lower likelihood of needing thyroid hormone replacement and no surgical scar, were explained. We discussed the risks, benefits, and alternatives including injury tothe recurrent laryngeal nerves, nodular rupture in addition to a risk of neck hematoma or infection. We discussed the procedure in detail including having a public transit trolley driver with them, using local anesthetic and taking a benzodiazepine just prior to the procedure, and what to expect after the procedure. It was noted that insurance coverage for RFA is variable. All questions were answered. [facility] Instructions* Patient Instructions* Celine Johnson RN - 05/28/2025 11:00 AM EDT documented in this [facility] NoteProvider has looked at patient's case/referral and discussed with patient that our service it not needed for the patient at this time. Will close referral at this time.[facility]08-05-2025 Telephone encounter Note* Telephone Encounter - Latrice Man - 05/28/2025 8:35 AM EDT Provider has looked at patient's case/referral and discussed with patient that our service it not needed for the patient at this time. Will close referral at this time. [facility] [phone] Miscellaneous Notes* Telephone Encounter - Latrice Man - 05/28/2025 8:35 AM EDT Provider has looked at patient's case/referral and discussed with patient that our service it not needed for the patient at this time. Will close referral at this time. documented in this [facility]07-30-2025 History of Present illness Narrative* Martin Hyatt MD - 05/22/2025 10:15 AM EDT Brissa Jeffery 05/22/2024 59 y.o. Primary Care Physician: Sudhir Pedraza DO Chief Complaint Patient presents with Follow-up HPI : Brissa Jeffery is a 59 y.o. 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 Carter who consulted with [employer] Dr. Lewis - follow with US annually and watch for sxs - GI workup with EGD and image pancreas Since 2019 she has been having yearly pelvic US at [facility] Todays US was the first at [facility] Prelim US Right ovary surgically absent Left ovary not visualized No pelvic fluid FINAL DIAGNOSIS -2019 FINAL DIAGNOSIS 1. Appendix, resection (A) Appendix with distal fibrosis, negative for neoplasm, see comment. 2. Right fallopian tube and ovary, resection (B): - Multifocal surface deposits of acellular mucin, see comment. - Tubo-ovarian adhesions, extensive. - Follicular cysts and hemorrhagic corpus luteum of ovary. - Michael tumor of ovary. AES/db 05/29/2019 COMMENT Numerous mucin deposits with neovascularization, histiocytes with foreign body reaction, calcification and fibrovascular adhesions are identified in Part B. The areas with mucin deposits include collagenous tissue of nonspecific origin and serosal surfaces of ovary and fallopian tube. No neoplastic epithelium is identified within the mucin. The presence of the acellular mucin is of concern because it could represent secondary involvement by a mucinous neoplasm from sites such as gastrointestinal including appendix, pancreas or ovary. No definite parenchymal invasion of organs by the mucin is identified and no mucin deposits are present on the appendix. A single focus of intestinal-type mucinous epithelium with bland well-differentiated features is identified in continuity with benign salpingeal tissue. No definite endometriosis or metaplastic endometriosis, germ cell neoplasia, mucinous component in the Michael tumor or appendiceal neoplasm were identified. Due to anatomic distortions and fragmentation of the specimen, we were unable to determine if the tissue in part B represents bilateral ovaries and tubes. Preliminary findings were discussed with Drs. Rimma Wahl and Elizabeth Shen on 05/29/19 and 05/30/19. Jose Jaime, Elizabeth Driver, Asad and Perry were consulted and concur. Dr. Ronit Puri was consulted (A). Surgical History[1] Family History[2] Social History Socioeconomic History Marital status: Spouse name: Not on file Number of children: Not on file Years of education: Not on file Highest education level: Not on file Occupational History Not on file Tobacco Use Smoking status: Never Passive exposure: Never Smokeless tobacco: Never Vaping Use Vaping status: Never Used Substance and Sexual Activity Alcohol use: Never Drug use: Never Sexual activity: Never control/protection: Surgical Comment: Hyst Other Topics Concern Not on file Social History Narrative Not on file Social Drivers of Health Financial Resource Strain: Low Risk (05/15/2025) Overall Financial Resource Strain (CARDIA) Difficulty of Paying Living Expenses: Not hard at all Food Insecurity: No Food Insecurity (05/15/2025) Hunger Vital Sign Worried About Running Out of Food in the Last Year: Never true Ran Out of Food in the Last Year: Never true Transportation Needs: No Transportation Needs (05/15/2025) PRAPARE - Transportation Lack of Transportation (Medical): No Lack of Transportation (Non-Medical): No Physical Activity: Insufficiently Active (05/15/2025) Exercise Vital Sign Days of Exercise per Week: 5 days Minutes of Exercise per Session: 20 min Stress: Stress Concern Present (05/15/2025) [employer] [place] [employer] - Occupational Stress Questionnaire Feeling of Stress : Very much Social Connections: Socially Integrated (05/15/2025) Social Connection and Isolation Panel [NHANES] Frequency of Communication with Friends and Family: More than three times a week Frequency of Social Gatherings with Friends and Family: More than three times a week Attends Orthodox Services: More than 4 times per year Active Member of Clubs or Organizations: Yes Attends Club or Organization Meetings: More than 4 times per year Marital Status: Intimate Partner Violence: Patient Declined (05/15/2025) Humiliation, Afraid, Rape, and Kick questionnaire Fear of Current or Ex-Partner: Patient declined Emotionally Abused: Patient declined Physically Abused: Patient declined Sexually Abused: Patient declined Housing Stability: Low Risk (05/15/2025) Housing Stability Vital Sign Unable to Pay for Housing in the Last Year: No Number of Times Moved in the Last Year: 1 Homeless in the Last Year: No MEDICATIONS: Current Medications[3] ALLERGIES: Allergies as of 05/22/2025 - Reviewed 05/22/2025 Allergen Reaction Noted Sulfamethoxazole-trimethoprim Other and Unknown 03/21/2018 Seasonal 05/16/2024 Trimethoprim Dizziness 08/14/2024 PHYSICAL EXAM: Vitals: 05/22/25 1011 BP: 129/80 Pulse: 83 Weight: 274 lb (124 kg) Height: 5' 6 (1.676 m) Body mass index is 44.22 kg/m . ASSESMENT/PLAN: Brissa Noble was seen today for follow-up. Diagnoses and all orders for this visit: Michael tumor of ovary, right (Primary). Acellular mucin deposits - [facility] Gynecologic Oncology; Future - Brissa Noble would like consult with Delinquency Counselor onc to discuss surveillance recommendations Has annual scheduled [1] Past Surgical History: Procedure Laterality Date APPENDECTOMY BREAST BIOPSY Right 02/17/2024 Adenocarcinoma BREAST LUMPECTOMY Right 02/17/2024 2nd re-excision on 03/29/2024 CHOLECYSTECTOMY COLONOSCOPY HERNIA REPAIR HYSTERECTOMY 2007 age 41 OOPHORECTOMY Right 2019 SEPTOPLASTY [2] Family History Problem Relation Name Age of Onset Diabetes Mother Gina Emphysema Mother Gina Heart failure Mother Gina Emphysema Father Karson Hypertension Father Karson Breast cancer Mother's Sister Ximena 55 Breast cancer Mother's Sister Brandy 55 Lung cancer Mother's Brother 55 Breast cancer Paternal Grandmother Alia 55 Stomach cancer Paternal Grandmother Alia [3] Current Outpatient Medications Medication Sig Dispense Refill cholecalciferol (Vitamin D-3) 125 MCG (5000 UT) capsule Take 5,000 Units by mouth in the morning. Vitamin C and Zinc combo. hydroCHLOROthiazide (Microzide) 12.5 MG capsule Take 1 capsule (12.5 mg) by mouth daily. 90 capsule3 ketoconazole (NIZOral) 2 % cream APPLY A THIN LAYER TO THE AFFECTED AREAS UNDER BREASTS AND GROIN TWICE A DAY NEEDED. levothyroxine (Tirosint) 112 MCG capsule Take 1 capsule (112 mcg) by mouth every morning (before breakfast). 90 capsule 3 metFORMIN XR (Glucophage-XR) 500 MG 24 hr tablet Take 2 tablets (1,000 mg) by mouth daily (with breakfast). NON FORMULARY daily. SUPER DIGESTIVE ENZYME omeprazole (PriLOSEC) [address] capsule Take 20 mg by mouth every morning (before breakfast). Do notcrush or chew. oxymetazoline (Nasal Relief) 0.05 % nasal spray Administer 2 sprays into affected nostril(s) twice a day. Afrin Triamcinolone Acetonide (NASACORT AQ NA) Administer 2 sprays into each nostril Nightly. ursodiol (Actigall) 300 MG capsule Take 1 capsule (300 mg) by mouth 2 times daily. 180 capsule 3 No current facility-administered medications for this visit. 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 Monitor. Adjust as needed. 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 Will reach out to her provider in [place]. Continue prilosec. [id number] Evaluation + Plan note* Assessment & Plan Note - Sudhir Pedraza DO - 05/15/2025 1:40 PM EDTAssociated Problem(s): Nonalcoholic steatohepatitis (HUGGINS) Due for fibroscan for screening with GI. See above. Continue usodiol. [place] [id number] History of Present illness Narrative* Sudhir Pedraza DO - 05/15/2025 1:40 PM EDT Images from the original note were not included. [facility] [address] [facility] [id number] Visit Type: Physical PCP: Sudhir Pedraza DO Reason for Visit: Annual Exam (Physical), Ear Fullness (Right ear fullness causing dizziness x1 month. Fullness and dizziness has mostly subsided), and Hot Flashes (Patient reports feeling hot all the time, possibly feverish ) ASSESSMENT AND PLAN Assessment & Plan Annual physical exam Screening labs ordered. Breast cancer screening completed. Orders: Comprehensive metabolic panel; Future CBC; Future Lipid panel; Future Hemoglobin A1c; Future Hyperlipidemia, unspecified hyperlipidemia type Monitor. Treat as indicated. 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 Monitor. Adjust as needed. 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 Will reach out to her provider in [place]. Continue prilosec. Nonalcoholic steatohepatitis (HUGGINS) Due for fibroscan for screening with GI. See above. Continue usodiol. Follow up in about 1 year (around 05/15/2026) for Annual. There are no Patient Instructions on file for this visit. SUBJECTIVE HPI Brissa Jeffery presents for an annual exam. She has the following concerns today: High risk breast clinic Gastro? R ear fullness - was taking supplements if it was infectious? - stopped and resolved on own Feels high temp all the time. Review of Systems Pertinent ROS noted in the HPI and all other systems are negative. Allergies[1] Current Medications[2] Medical History[3] Social History[4] Surgical History[5] Family History[6] OBJECTIVE BP 126/72 (BP Location: Right arm, Patient Position: Sitting, BP Cuff Size: Large adult) Pulse 95 Temp 37.1 C (98.8 F) (Temporal) Ht 5' 6 (1.676 m) Wt 273 lb (124 kg) SpO2 98% BMI 44.06 kg/m Physical Exam Constitutional: General: She is not in acute distress. Appearance: Normal appearance. She is obese. HENT: Head: Normocephalic and atraumatic. Right Ear: Tympanic membrane, ear canal and external ear normal. Left Ear: Tympanic membrane, ear canal and external ear normal. Mouth/Throat: Mouth: Mucous membranes are moist. Pharynx: Oropharynx is clear. No posterior oropharyngeal erythema. Eyes: General: No scleral icterus. Extraocular Movements: Extraocular movements intact. Conjunctiva/sclera: Conjunctivae normal. Pupils: Pupils are equal, round, and reactive to light. Neck: Vascular: No carotid bruit. Cardiovascular: Rate and Rhythm: Normal rate and regular rhythm. Heart sounds: No murmur heard. Pulmonary: Effort: Pulmonary effort is normal. No respiratory distress. Breath sounds: Normal breath sounds. No wheezing, rhonchi or rales. Abdominal: General: Abdomen is flat. Bowel sounds are normal. There is no distension. Palpations: Abdomen is soft. There is no hepatomegaly, splenomegaly or mass. Tenderness: There is no abdominal tenderness. There is no guarding. Musculoskeletal: Cervical back: Normal range of motion. No tenderness. Lymphadenopathy: Cervical: No cervical adenopathy. Neurological: Mental Status: She is alert. Psychiatric: Attention and Perception: Attention normal. Mood and Affect: Mood normal. Behavior: Behavior normal. Health Maintenance The 10-year ASCVD risk score (Mary OSORIO, et al., 2019) is: 1.7% Values used to calculate the score: Age: 59 years Sex: Female Is Non- : No Diabetic: No Tobacco smoker: No Systolic Blood Pressure: 126 mmHg Is BP treated: No HDL Cholesterol: 64 mg/dL Total Cholesterol: 141 mg/dL Health Maintenance Due Topic Date Due HIV Screening Never done Derm Melanoma Skin Check Never done MMR Vaccines (1 of 1 - Standard series) Never done Hepatitis B Vaccines (1 of 3 - 19+ 3-dose series) Never done Pneumococcal Vaccine: 50+ Years (1 of 2 - PCV) Never done Zoster Vaccines (1 of 2) Never done Immunization History Administered Date(s) Administered Influenza, Unspecified 07/08/2020 Tdap 10/24/2018, 11/17/2018 Medications Discontinued During This Encounter Medication Reason ibuprofen 200 MG tablet Other Sudhir Pedraza DO 05/17/2025 4:06 PM There are no Patient Instructions on file for this visit. [1] Allergies Allergen Reactions Sulfamethoxazole-Trimethoprim Other and Unknown [place] strange on it spacey Light-headed bactrim Seasonal Trimethoprim Dizziness [2] Current Outpatient Medications: cholecalciferol (Vitamin D-3) 125 MCG (5000 UT) capsule, Take 5,000 Units by mouth in the morning. Vitamin C and Zinc combo., Disp: , Rfl: hydroCHLOROthiazide (Microzide) 12.5 MG capsule, Take 1 capsule (12.5 mg) by mouth daily., Disp: 90capsule, Rfl: 3 ketoconazole (NIZOral) 2 % cream, APPLY A THIN LAYER TO THE AFFECTED AREAS UNDER BREASTS AND GROIN TWICE A DAY NEEDED., Disp: , Rfl: levothyroxine (Tirosint) 112 MCG capsule, Take 1 capsule (112 mcg) by mouth every morning (before breakfast)., Disp: 90 capsule, Rfl: 3 metFORMIN XR (Glucophage-XR) 500 MG 24 hr tablet, Take 2 tablets (1,000 mg) by mouth daily (with breakfast)., Disp: , Rfl: NON FORMULARY, daily. SUPER DIGESTIVE ENZYME, Disp: , Rfl: omeprazole (PriLOSEC) [address] capsule, Take 20 mg by mouth every morning (before breakfast). Do not crush or chew., Disp: , Rfl: oxymetazoline (Nasal Relief) 0.05 % nasal spray, Administer 2 sprays into affected nostril(s) twicea day. Afrin, Disp: , Rfl: Triamcinolone Acetonide (NASACORT AQ NA), Administer 2 sprays into each nostril Nightly., Disp: , Rfl: ursodiol (Actigall) 300 MG capsule, Take 1 capsule (300 mg) by mouth 2 times daily., Disp: 180 capsule, Rfl: 3 [3] Past Medical History: Diagnosis Date Adenocarcinoma (HCC) 02/17/2024 skin of right breast Allergic rhinitis BRCA1 negative BRCA2 negative Disease of thyroid gland Fibrocystic breast GERD (gastroesophageal reflux disease) 09/13 Headache Hypertension Insomnia Liver disease 09/13 Lung nodule Obesity Prediabetes Sleep apnea 03/2024 Sleep apnea, obstructive 2018 Snoring [4] Social History Socioeconomic History Marital status: Tobacco Use Smoking status: Never Passive exposure: Never Smokeless tobacco: Never Vaping Use Vaping status: Never Used Substance and Sexual Activity Alcohol use: Never Drug use: Never Sexual activity: Never control/protection: Surgical Social Drivers of Health Financial Resource Strain: Low Risk (05/15/2025) Overall Financial Resource Strain (CARDIA) Difficulty of Paying Living Expenses: Not hard at all Food Insecurity: No Food Insecurity (05/15/2025) Hunger Vital Sign Worried About Running Out of Food in the Last Year: Never true Ran Out of Food in the Last Year: Never true Transportation Needs: No Transportation Needs (05/15/2025) PRAPARE - Transportation Lack of Transportation (Medical): No Lack of Transportation (Non-Medical): No Physical Activity: Insufficiently Active (05/15/2025) Exercise Vital Sign Days of Exercise per Week: 5 days Minutes of Exercise per Session: 20 min Stress: Stress Concern Present (05/15/2025) [employer] [place] [employer] - Occupational Stress Questionnaire Feeling of Stress : Very much Social Connections: Socially Integrated (05/15/2025) Social Connection and Isolation Panel [NHANES] Frequency of Communication with Friends and Family: More than three times a week Frequency of Social Gatherings with Friends and Family: More than three times a week Attends Orthodox Services: More than 4 times per year Active Member of Clubs or Organizations: Yes Attends Club or Organization Meetings: More than 4 times per year Marital Status: Intimate Partner Violence: Patient Declined (05/15/2025) Humiliation, Afraid, Rape, and Kick questionnaire Fear of Current or Ex-Partner: Patient declined Emotionally Abused: Patient declined Physically Abused: Patient declined Sexually Abused: Patient declined Housing Stability: Low Risk (05/15/2025) Housing Stability Vital Sign Unable to Pay for Housing in the Last Year: No Number of Times Moved in the Last Year: 1 Homeless in the Last Year: No [5] Past Surgical History: Procedure Laterality Date APPENDECTOMY BREAST BIOPSY Right 02/17/2024 Adenocarcinoma BREAST LUMPECTOMY Right 02/17/2024 2nd re-excision on 03/29/2024 CHOLECYSTECTOMY COLONOSCOPY HERNIA REPAIR HYSTERECTOMY 2007 age 41 OOPHORECTOMY Right 2019 SEPTOPLASTY [6] Family History Problem Relation Name Age of Onset Diabetes Mother Gina Emphysema Mother Gina Heart failure Mother Gina Emphysema Father Karson Hypertension Father Karson Breast cancer Mother's Sister Ximena 55 Breast cancer Mother's Sister Brandy 55 Lung cancer Mother's Brother 55 Breast cancer Paternal Grandmother Alia 55 Stomach cancer Paternal Grandmother Alia documented in this [facility]07-23-2025 Miscellaneous Notes* Assessment & Plan Note - Sudhir Pedraza DO - 05/15/2025 1:40 PM EDT Associated Problem(s): 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 Monitor. Adjust as needed. 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 Will reach out to her provider in [place]. Continue prilosec. * Assessment & Plan Note - Sudhir Pedraza DO - 05/15/2025 1:40 PM EDT Associated Problem(s): Nonalcoholic steatohepatitis (HUGGINS) Due for fibroscan for screening with GI. See above. Continue usodiol. documented in this [facility]05-21-2025 NoteIf we did not refer patient we cannot send records. Referral can be placed or patient can come in and fill out an ROSA form![facility]05-05-[facility]25 History of Present illness Narrative* Alban Mercedes PT - 02/25/2025 3:27 PM EDT Images from the original note were not included. [facility] [address] [id number] Discharge Notification Patient Name: Brissa Jeffery : 1965 Today's Date: 02/25/2025 Pt insurance denied authorization of follow up visits at [facility]. Recommended patient call her insurance to find out where they will allow her to go to therapy. Thank you for this referral. For any questions on this patient s course of therapy, please call theclinic for clarification. Alban Mercedes PT documented in this [facility]04-29-2025 Nurse Note* Chrissy Shelton RN - 02/19/2025 1:26 PM EDT Pt arrived from home for a Left thyroid biopsy. Site prepped and samples taken and placed in cytology and affrima. Pt monitored the whole time. Band-Aid placed on site and ice pack given. Home going instructions review with pt. Pt tolerated well and discharged at this time. [id number] Nurse Note* Chrissy Shelton RN - 02/19/2025 1:26 PM EDT Pt arrived from home for a Left thyroid biopsy. Site prepped and samples taken and placed in cytology and affrima. Pt monitored the whole time. Band-Aid placed on site and ice pack given. Home going instructions review with pt. Pt tolerated well and discharged at this time. documented in this [facility]04-29-2025 Hospital Discharge instructions* Discharge Instructions* Chrissy Shelton RN - 02/19/2025 12:50 PM EDT Biopsy Discharge Instructions Your Recovery A biopsy is a procedure that is performed to obtain a small piece of tissue from an organ, bone, growth, or tumor. This tissue is sent to the lab where a pathologist can examine it to look for canceror to diagnose other health problems. The area where the biopsy was taken may be sore for a couple days following the procedure. You may develop a bruise. This care sheet gives you a general idea about how long it will take for you to recover. However, each person recovers at a different pace. How can you care for yourself at home? Activity - Avoid heavy lifting or strenuous activities for 24-48 hours following your procedure Diet - You may resume your normal diet. If your stomach is upset, try bland, low-fat food like plain rice, broiled chicken, toast and yogurt. - Drink plenty of fluids. Medications - You may resume your home medications the day after the procedure unless otherwise instructed by your doctor. Care of Biopsy Site - Keep a bandage over the biopsy site for 24 hours. It is important to keep the site clean and dry during this time. - After 24 hours you may remove the bandage and clean the area with a mild soap. - You may apply heat or ice to the procedure site to help with any soreness. Alternate 20 minutes with heat or ice, and 20 minutes without. Be sure to use a barrier such as a towel between the ice orheat and your skin. - Monitor the site for signs of infection including redness, discharge or swelling. If you are concerned with the site, please contact us. When should you call for help? - For emergent concerns following your procedure please call 911 or go to the nearest emergency room. - For any non-emergent post-procedure questions or concerns, please give us a call between 8am and 5pm. - [facility] - [phone] - [facility] - [phone] - For questions after hours, please call [phone] and ask for the on-call Angiography Radiologist. When can I expect to get my test results? - It typically takes 1-2 weeks to get your biopsy results. - All biopsy results will be sent to your doctor that ordered the procedure. For any questions regarding test results, please contact your doctor s office. This handout is intended to provide general educational material to assist you in making informed decisions regarding your medical care. Specific questions about your unique medical conditions shouldbe referred to your primary care physician. * Attachments The following attachments cannot be sent through Care Everywhere. * Needle Biopsy, Thyroid (Nepalese) documented in this [facility]04-11-2025 Telephone encounter Note* Telephone Encounter - Maci Kimbrough - 02/01/2025 1:[address] to soon to auth will do in May [id number] Miscellaneous Notes* Telephone Encounter - Maci Kimbrough - 02/01/2025 1:[address] to soon to auth will do in May * Telephone Encounter - Zeny Steve - 02/01/2025 11:25 AM EDT Your patient has been scheduled for their CT on at 10am. If testing requires an insurance authorization, the authorization must be in place 48 hours prior to the scheduled test or testing will be cancelled. Thank you, Central Scheduling documented in this [place] [id number] Telephone encounter Note* Telephone Encounter - Zeny Steve - 02/01/2025 11:25 AM EDT Your patient has been scheduled for their CT on at 10am. If testing requires an insurance authorization, the authorization must be in place 48 hours prior to the scheduled test or testing will be cancelled. Thank you, Central Scheduling [facility] [id number] History of Present illness Narrative* Eliu Maldonado MD - 01/31/2025 10:45 AM EDT Images from the original note were not included. 01/31/2025 REFERRING PHYSICIAN: Sudhir Pedraza DO REASON FOR REFERRAL: Chief Complaint Patient presents with Follow-up Pt had a CT on 01/17/25 Chief complaint: Lung nodule and LINDSAY on BiPAP and nocturnal O2 History of Present Illness: Feels well. No problems with the breathing. Sleeps nightly with the BiPAP and the oxygen, cannot sleep without it, does very well. No issues with the machine or the mask. Lets me review her compliance report on her phone. Both she and her know they need to lose weight, it is difficult. ROS: Review of Systems Constitutional: Negative. HENT: Negative. Eyes: Negative. Respiratory: HPI Cardiovascular: Negative. Gastrointestinal: Negative. Endocrine: Negative. Musculoskeletal: Negative. Skin: Negative. Allergic/Immunologic: Negative. Neurological: Negative. Hematological: Negative. Psychiatric/Behavioral: Negative. 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 Allergic rhinitis BRCA1 negative BRCA2 negative Disease of thyroid gland Fibrocystic breast GERD (gastroesophageal reflux disease) 09/13 Hypertension Liver disease 09/13 Lung nodule Obesity Prediabetes Sleep apnea 03/2024 Sleep apnea, obstructive 2018 Past Surgical History Past Surgical History: Procedure Laterality Date APPENDECTOMY BREAST BIOPSY Right 02/17/2024 Adenocarcinoma BREAST LUMPECTOMY Right 02/17/2024 2nd re-excision on 03/29/2024 CHOLECYSTECTOMY COLONOSCOPY HERNIA REPAIR HYSTERECTOMY 2007 age 41 OOPHORECTOMY Right Social History: Social History Socioeconomic History Marital status: Tobacco Use Smoking status: Never Passive exposure: Never Smokeless tobacco: Never Vaping Use Vaping status: Never Used Substance and Sexual Activity Alcohol use: Never Drug use: Never Sexual activity: Never control/protection: Surgical Social Drivers of Health Financial Resource Strain: Low Risk (05/16/2024) Overall Financial Resource Strain (CARDIA) Difficulty of Paying Living Expenses: Not hard at all Food Insecurity: No Food Insecurity (05/16/2024) Hunger Vital Sign Worried About Running Out of Food in the Last Year: Never true Ran Out of Food in the Last Year: Never true Transportation Needs: No Transportation Needs (05/16/2024) PRAPARE - Transportation Lack of Transportation (Medical): No Lack of Transportation (Non-Medical): No Physical Activity: Insufficiently Active (05/16/2024) Exercise Vital Sign Days of Exercise per Week: 5 days Minutes of Exercise per Session: 20 min Stress: No Stress Concern Present (05/16/2024) [employer] [employer] - Occupational Stress Questionnaire Feeling of Stress : Not at all Social Connections: Socially Integrated (05/16/2024) Social Connection and Isolation Panel [NHANES] Frequency of Communication with Friends and Family: More than three times a week Frequency of Social Gatherings with Friends and Family: More than three times a week Attends Orthodox Services: 1 to 4 times per year Active Member of Clubs or Organizations: Yes Attends Club or Organization Meetings: More than 4 times per year Marital Status: Intimate Partner Violence: Patient Declined (05/16/2024) Humiliation, Afraid, Rape, and Kick questionnaire Fear of Current or Ex-Partner: Patient declined Emotionally Abused: Patient declined Physically Abused: Patient declined Sexually Abused: Patient declined Housing Stability: Low Risk (05/16/2024) Housing Stability Vital Sign Unable to Pay for Housing in the Last Year: No Number of Times Moved in the Last Year: 0 Homeless in the Last Year: No Medications: Current Outpatient Medications Medication Sig Dispense Refill cholecalciferol (Vitamin D-3) 125 MCG (5000 UT) capsule Take 5,000 Units by mouth in the morning. Vitamin C and Zinc combo. hydroCHLOROthiazide (Microzide) 12.5 MG capsule Take 1 capsule (12.5 mg) by mouth daily. 90 capsule3 ibuprofen 200 MG tablet Take 200 mg by mouth every 6 hours as needed. levothyroxine (Tirosint) 112 MCG capsule Take 1 capsule (112 mcg) by mouth every morning (before breakfast). 90 capsule 3 metFORMIN XR (Glucophage-XR) 500 MG 24 hr tablet Take 2 tablets (1,000 mg) by mouth daily (with breakfast). NON FORMULARY daily. SUPER DIGESTIVE ENZYME omeprazole (PriLOSEC) [address] capsule Take 20 mg by mouth every morning (before breakfast). Do notcrush or chew. oxymetazoline (Nasal Relief) 0.05 % nasal spray Administer 2 sprays into affected nostril(s) twice a day. Triamcinolone Acetonide (NASACORT AQ NA) Administer 2 sprays into each nostril Nightly. ursodiol (Actigall) 300 MG capsule Take 1 capsule (300 mg) by mouth 2 times daily. 180 capsule 3 No current facility-administered medications for this visit. Allergies: Allergies Allergen Reactions Sulfamethoxazole-Trimethoprim Other and Unknown [place] strange on it spacey Light-headed bactrim Seasonal Trimethoprim Dizziness Family History: Family History Problem Relation Name Age of Onset Diabetes Mother Gina Emphysema Mother Gina Heart failure Mother Gina Emphysema Father Karson Hypertension Father Karson Breast cancer Mother's Sister Ximena 55 Breast cancer Mother's Sister Brandy 55 Lung cancer Mother's Brother 55 Breast cancer Paternal Grandmother Alia 55 Stomach cancer Paternal Grandmother Alia Physical Exam: BP (!) 145/86 (01/31/25 1039) Temp Pulse 87 (01/31/25 1039) Resp SpO2 96 % (01/31/25 1039) Physical Exam Vitals and nursing note reviewed. Exam conducted with a pot liner present. Constitutional: General: She is not in acute distress. Appearance: Normal appearance. She is obese. She is not ill-appearing, toxic- appearing or diaphoretic. HENT: Head: Normocephalic and atraumatic. Nose: Nose normal. Mouth/Throat: Mouth: Mucous membranes are moist. Pharynx: Oropharynx is clear. No oropharyngeal exudate or posterior oropharyngeal erythema. Eyes: Extraocular Movements: Extraocular movements intact. Conjunctiva/sclera: Conjunctivae normal. Pupils: Pupils are equal, round, and reactive to light. Cardiovascular: Rate and Rhythm: Normal rate and regular rhythm. Heart sounds: Normal heart sounds. Pulmonary: Effort: Pulmonary effort is normal. No respiratory distress. Breath sounds: No stridor. No wheezing, rhonchi or rales. Abdominal: Palpations: Abdomen is soft. Musculoskeletal: General: No swelling or deformity. Cervical back: Neck supple. No rigidity. Lymphadenopathy: Cervical: No cervical adenopathy. Skin: General: Skin is warm and dry. Neurological: General: No focal deficit present. Mental Status: She is alert and oriented to person, place, and time. Psychiatric: Mood and Affect: Mood normal. Behavior: Behavior normal. Thought Content: Thought content normal. Judgment: Judgment normal. Radiology: Personally reviewed her chest CT with her and her PFT: None Assessment and Plan: Brissa Noble was seen today for follow-up. Diagnoses and all orders for this visit: Lung nodule (Primary) - CT chest wo IV contrast; Future Chronic respiratory failure with hypoxia (HCC) LINDSAY treated with BiPAP Class 3 severe obesity due to excess calories without serious comorbidity with body mass index (BMI) of 40.0 to 44.9 in adult (HCC) Repeat CT chest without contrast in 6 months Compliance report reviewed, doing very well with BiPAP and nocturnal oxygen Agree with weight loss Follow-up: Follow up in about 6 months (around 08/02/2025) for After chest CT. documented in this [facility]03-28-2025 History of Present illness Narrative* Alban Mercedes, PT - 01/18/2025 1:15 PM EDT [facility] [address] [facility] [address] Dept: [phone] Dept PHYSICAL THERAPY EVALUATION Patient Name: Brissa Jeffery : 1965 Date of Service: 01/18/2025 Referring Provider: Eliu Jackson MD Diagnosis: Muscle strain of right scapular region, initial encounter General Information Reason for referral: R shoulder / scapular pain Mechanism of injury: Pt reports she began experiencing R scapular / shoulder pain 6-8 months ago ofunknown onset. She reports no change in symptoms since onset. 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 PSHX: Brissa has a past surgical history that includes Breast lumpectomy (Right, 02/17/2024); Breast biopsy (Right, 02/17/2024); Hysterectomy (2006); Oophorectomy (Right); Appendectomy; Cholecystectomy; Hernia repair; and Colonoscopy. Have you experienced any anxiety or depression? No Have you experienced thoughts of self-harm or suicidal thoughts? No Social Drivers of Health Reviewed: Yes Physician follow-up appointment?: No Previous Treatment: Yes massage therapy with temporary relief. Stretch lab without relief. companion caregiver once per month. Extremity Dominance: left Subjective Pain Assessment Severity: Current 3/10, Best 1-2/10, Worst 5-7/10 Type: chronic Location: R inferior scapula Descriptors: dull, achy, burning Aggravating: pressure, pressing on the spot Relieving: none Prior Level of Function: Independent without difficulty Current Level of Function: She reports pain while working and sleeping. Patient s Stated Goal: Relieve pain Outcome Measures QuickDASH: 9% impairment Objective SHOULDER Posture: mild rounded shoulder posture, mildly accentuated thoracic kyphosis Palpation: tenderness to palpation R infraspinous sandra of scapular and R thoracic paraspinals T3-4 Thoracic Joint Mobility: Hypomobility T1-6 CPA's without pain Cervical AROM (% of normal) (*pain) Date 01/18/2025 Flexion 100 Extension 100 Side Bend R 75 Side Bend L 75 Rotation R 100 Rotation L 100 NT = not tested Thoracic ROM: good mobility overall with flexion and extension without pain Shoulder AROM (degrees) (*pain) Date 01/18/2025 R L Flexion 165* 165 Abduction 180* 180 ER 100 100 IR 90 90 NT = not tested Apley's Scratch Test (*pain) Date 01/18/2025 R L ER T4 T4 IR T7 T7 NT = not tested Upper Extremity Strength (*pain) Date 01/18/2025 R L Shoulder Flexion 5/5 5/5 Shoulder ABD 5/5 5/5 Shoulder ER 5/5 5/5 Shoulder IR 5/5 5/5 Elbow Flex 5/5 5/5 Elbow Ext 5/5 5/5 NT = not tested Shoulder Special Tests Eliazar-Ho: Right negative and Left negative Cross Body Adduction: Right negative and Left negative Painful Arc: Right negative and Left negative Empty Can: Right negative and Left negative Scapular Strength (*pain) Date 01/18/2025 R L Mid Trap 4/5 4/5 Lower Trap 4/5 4/5 NT = not tested Assessment Pt presents to therapy today with complaints of R scapular pain which began 6-8 months ago of unknown onset. Pt reports difficulty with working and sleeping secondary to pain. Pt presentation is consistent with diagnosis of R scapular trigger points noted by tenderness to palpation over musculatureat infraspinous fossa, mid and low trap weakness, kyphotic postural alignment, hypomobile thoracic spine and pain with end AROM shoulder flexion and abduction. Pt will benefit from skilled therapy toaddress above deficits in order to promote a return to pain free work. Evaluation complexity is low secondary to: patient has 3 or more personal factors and/or comorbidities that will affect plan of care, therapy will be addressing 3 or more elements, and clinical presentation is stable. Body Systems Affected: musculoskeletal and neuromuscular Rehab Potential: Good Learning Preferences: demonstration, explanation, and performance Barriers to Rehab: chronicity and comorbidities Goals General/Ortho Patient will be independent with HEP. (Initiated) Start: 01/18/25 Expected End: 03/20/25 Pt will improve score on Quick Dash to 0% impairment to demonstrate a return to pain free reaching overhead (Initiated) Start: 01/18/25 Expected End: 03/20/25 Pt will demonstrate pain free R shoulder AROM abduction and flexion to promote a return to pain free [place] (Initiated) Start: 01/18/25 Expected End: 03/20/25 Pt will improve bilateral scapular strength to 5/5 to facilitate a reduction in pain while working (Initiated) Start: 01/18/25 Expected End: 03/20/25 Pt will demonstrate improved postural awareness and ability to self-correct to reduce postural related pain while working (Initiated) Start: 01/18/25 Expected End: 03/20/25 Plan Frequency and Duration: 1/wk for 8 weeks Therapeutic Contents: client education, home exercise program, manual therapy techniques, neuromuscular re-education, therapeutic activities, therapeutic exercise, trigger point dry needle, and modalities as needed Plan for next session: STM, cupping or DN to R scapula. Joint mobes thoracic spine. Periscapular strength and thoracic mobility. Risks and benefits were discussed with the patient and/or family, and the patient and/or family participated with the plan of care and agrees. Treatment Therapeutic Exercise # of Activities: 20 Therapeutic Exercise Activity 1: thoracic extension x10 Activity 1 Comment: foam roller and at wall Therapeutic Exercise Activity 2: open book x10 R Therapeutic Exercise Activity 3: doorway stretch 2x20 Therapeutic Exercise Activity 4: W x10 Activity 4 Comment: red Therapeutic Exercise Activity 5: horizontal abduction x10 R Activity 5 Comment: red Therapeutic Exercise Activity 6: pulldowns x10 Activity 6 Comment: red Patient Education: Educated patient on diagnosis, prognosis and POC Home Exercise Program: Created Time Entry Total Treatment Time Start Time: 1315 Stop Time: 1355 Time Calculation (min): 40 min PT Evaluation Time Entry PT Evaluation (Low) Time Entry: 25 PT Therapeutic Procedures Time Entry Therapeutic Exercise Time Entry: 15 Alban Mercedes PT documented in this [facility]03-27-2025 History of Present illness Narrative* Eliu Jackson MD - 01/17/2025 11:15 AM EDT Images from the original note were not included. Strain scapula [facility] [place] [address] [facility] [address] Dept: [phone] Dept Chief Complaint Patient presents with New Patient Shoulder Pain Right Subjective History of Present Illness: Brissa Jeffery is a 59 y.o. left hand dominant female who presents today for evaluation of right shoulder pain. Location: posterior, scapular Onset: 6-8 months Injury: no, worsening Quality: aching and throbbing Mechanical symptoms: no Radiation of symptoms: no Severity: 3/10 at rest and 7/10 at worst Exacerbating factor(s): direct pressure and massages, and leaning on her shoulder also sleeping on her right side causes pain. 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 Respiratory: Breathing comfortably on room air. No respiratory distress. Skin: Warm, dry, intact. No visible rashes or erythema overlying area of focused exam. Physical Exam Musculoskeletal: Right shoulder: Tenderness (Inferior medial border of the scapula and rhomboid muscle) present. No swelling, deformity or crepitus. Normal range of motion. Normal strength. Normal pulse. Arms: Comments: Range of motion full Supraspinatus muscle strength normal Infraspinatus muscle strength normal Subscapularis muscle strength normal Biceps muscle strength normal Speed's test negative Hawkin's test negative Impingement test negative Peoria's test negative Sulcus test negative Scarf test negative Spurling test negative External Notes No pertinent interval updates Labs Lab Results Component Value Date HGBA1C 5.9 (H) 06/07/2024 Lab Results Component Value Date CREATININE 0.99 09/06/2024 Imaging Images reviewed with patient today I have personally reviewed the images pertinent to the appointment today X-ray, CT scan, PET scan reviewed EMG/NCT No interval studies Procedure No procedures completed today Assessment Diagnosis Plan 1. Muscle strain of right scapular region, initial encounter Ambulatory referral to Physical Therapy 2. Acute pain of right shoulder XR shoulder 2+ views right 3. Pain of right scapula [facility] Plan -Discussed with the patient the nature of muscular tears. -Discussed options for activity modification. Other treatments to include icing and elevation. -Discussed possible treatment modalities. -Patient may consider wearing compression sleeve for comfort -Discussed gentle stretching regimen. Progressive eccentric strengthening regime -Questions answered. -Written patient information provided in the AVS. -Will prescribe PT at [facility].. No follow-ups on file. Eliu Jackson MD 01/17/2025 10:50 AM Please note that portions of this note may have been completed with voice recognition software. Documentation reviewed prior to signing but minor errors in senior trainer may have occurred. documented in this [facility]03-25-2025 Evaluation + Plan note* Assessment & Plan Note - Sudhir Pedraza DO - 01/15/2025 3:20 PM EDT Associated Problem(s): Multinodular goiter F/up imaging advised on last scan. Repeat ordered. Orders: US thyroid; [id number] History of Present illness Narrative* Sudhir Pedraza DO - 01/15/2025 3:20 PM EDT Images from the original note were not included. [facility] [place] [address] [place] [address] [address] [facility] [address] Visit Type: Follow Up Appointment PCP: Sudhir Pedraza DO Reason for Visit: Follow-up (6 week follow up) Assessment and Plan Assessment & Plan Multinodular goiter F/up imaging advised on last scan. Repeat ordered. Orders: US thyroid; Future Subcutaneous nodule of right foot Characterize nodules for piece of mind with US. Likely ganglion cyst. Orders: US extremity non vascular limited; Future Pain of right scapula Location of pain favors intercostal, trap v rhomboid strain. 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 Orders: [facility]; Future Follow up for as scheduled in April. On this date, 01/18/2025 I have spent 56 minutes reviewing previous notes, test results and [id number] with the patient discussing the diagnosis, pathophysiology, and management, as well as documenting on the day of the visit. There are no Patient Instructions on file for this visit. Subjective HPI Urosodiol - gastro refills left over. Will take over refills once supply is exhausted. This is for mgmt of her NAFLD. Constipation. Increased fatigue - sleeping longer She suspects thyroid level is off. She is now doing well on a good regimen with her Bipap with 2l O2. R medial shoulder blade pain. Deep and medially located along the shoulder blade. Massage helps, but returns later. L hip flexor - stretches help. She is trying to get to a good point with her stretching and knowledge of her lungs before she pursues an exercise regimen. Review of Systems Pertinent ROS noted in the HPI and all other systems are negative. Current Outpatient Medications Medication Sig Dispense Refill cholecalciferol (Vitamin D-3) 125 MCG (5000 UT) capsule Take 5,000 Units by mouth in the morning. Vitamin C and Zinc combo. hydroCHLOROthiazide (Microzide) 12.5 MG capsule Take 1 capsule (12.5 mg) by mouth daily. 90 capsule3 ibuprofen 200 MG tablet Take 200 mg by mouth every 6 hours as needed. levothyroxine (Tirosint) 112 MCG capsule Take 1 capsule (112 mcg) by mouth every morning (before breakfast). 90 capsule 3 NON FORMULARY daily. SUPER DIGESTIVE ENZYME omeprazole (PriLOSEC) [address] capsule Take 20 mg by mouth every morning (before breakfast). Do notcrush or chew. oxymetazoline (Nasal Relief) 0.05 % nasal spray Administer 2 sprays into affected nostril(s) twice a day. Triamcinolone Acetonide (NASACORT AQ NA) Administer 2 sprays into each nostril Nightly. ursodiol (Actigall) 300 MG capsule Take 1 capsule (300 mg) by mouth 2 times daily. 180 capsule 3 metFORMIN XR (Glucophage-XR) 500 MG 24 hr tablet Take 2 tablets (1,000 mg) by mouth daily (with breakfast). No current facility-administered medications for this visit. 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 01/30/2024 Nava's esophagus without dysplasia 07/15/2020 Nonalcoholic steatohepatitis (HUGGINS) 07/15/2020 Objective BP 136/84 (BP Location: Left arm, Patient Position: Sitting, BP Cuff Size: Adult long) Pulse 82 Temp 36.8 C (98.2 F) (Temporal) Ht 5' 6 (1.676 m) Wt 279 lb (127 kg) SpO2 98% BMI 45.03 kg/m Physical Exam GEN: awake, alert, non-diaphoretic, no psychomotor agitation, no acute distress HEENT :Head: atraumatic, normocephalic, no rashes noted, no lesions noted Cardiopulmonary: no increased respiratory effort, speaking in clear sentences, I:E ratio WNL Neuro: cranial nerves grossly normal, speech normal rate and rhythm, orientation arrived to appointment on time with no prompting, moved both upper extremities equally Pysch: appearance, behavior, and attitude- well groomed, pleasant, cooperative Ext: R dorsal foot - well circumscribed, mobile nodule; no overlying skin changes. Medications Discontinued During This Encounter Medication Reason metFORMIN XR (Glucophage-XR) 500 MG 24 hr tablet Reorder Sudhir Pedarza DO 01/18/2025 4:27 PM documented in this [facility]03-25-2025 Miscellaneous Notes* Assessment & Plan Note - Sudhir Pedraza DO - 01/15/2025 3:20 PM EDT Associated Problem(s): Multinodular goiter F/up imaging advised on last scan. Repeat ordered. Orders: US thyroid; Future documented in this [facility]03-04-2025 Telephone encounter Note* Telephone Encounter - Tyesha Guerrero MA - 12/25/2024 9:03 AM EST Rx #: [id number] Pharmacy comment: CAN THIS BE CHANGED TO TABLETS FOR LOWER COST TO PT, PLEASE RESEND TABLETS IF SO. [id number] Miscellaneous Notes* Telephone Encounter - Tyesha Guerrero MA - 12/25/2024 9:03 AM EST Rx #: [id number] Pharmacy comment: CAN THIS BE CHANGED TO TABLETS FOR LOWER COST TO PT, PLEASE RESEND TABLETS IF SO. documented in this [facility]02-06-2025 History of Present illness Narrative* Vonnie Garza MD - 11/29/2024 9:30 AM EST Images from the original note were not included. [facility] Dr. Vonnie Garza M.D. Chief Complaint Patient presents with 6 Month Follow-up HR follow up-pt states that she has a small spot on the side of the left breast she would like to have checked out History of Present Illness: Brissa Jeffery is a 59 y.o. female who presents for high risk followup. She had noticed a right breast skin lesion intermittently throughout the past 2 years and brought it to the attention of her ent surgeon who performed an excision. This revealed adenocarcinoma and he then completed excision to negative margins. Recommended a follow-up with breast surgery for completion given the location of the skin cancer on the breast. Thankfully mammogram and MRI were negative for any associated lesions. She continues followup for high risk evaluation given family history. The patient denies any palpable breast masses or nipple discharge. She notes a recent purple spot on the left breast which looks consistent with venous appearance. Patient is postmenopausal. She is a never smoker. Family history of breast cancer in a paternal grandmother at age 55, and a maternal aunt at age 55,and and another maternal aunt also at age 55. Also has a history of lung cancer in a maternal uncleat age 55 and stomach cancer in her paternal grandmother. She was recently noted to have a new 9 mm left upper lobe pulmonary nodule, has follow up imaging pending for evaluation. PET/CT revealed mild increased activity with uncertain etiology at this nodule. No other complaints at this time. Imaging: no recent breast imaging for review Pathology: Case Report Surgical Pathology Report Case: [id number] Authorizing Provider: Elvin Cortez MD Collected: 03/12/2024 02:01 PM Ordering Location: [facility] Received: 03/12/2024 02:03 PM [facility] Pathologist: Reg Neumann MD Specimen: Slide(s), 24 SLIDES [facility] [address] [facility] [id number] FINAL DIAGNOSIS A. 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 Diagnosis Comment Many thanks for sending in consultation this specimen from the lateral breast of a 58-year-old female. Clinically, the differential diagnosis included a neoplasm of uncertain behavior, dermatofibroma, or cyst. Histologic sections reveal a deep dermal proliferation of variably sized cribriform nodules and scattered ducts with amorphous basophilic frothy secretions and occasional eosinophilic secretions embedded in a desmoplastic stroma. Cytologically, the lesional cells demonstrate somewhat uniform enlarged ovoid nuclei, vesicular chromatin, basophilic nucleoli, and small amounts of eosinophilic cytoplasm. Enclosed stains performed at the outside institution are reviewed at the [facility] with appropriate controls. The ductal cells are positive for CK7, pankeratin, and CD117 (weak). The SOX10 stain highlights a subset of the ductal cells and peripheral myoepithelial cells. The SMMHC and p63 stains are negative negative for myoepithelial cells. The lesional cells are negative for CK20, estrogen receptor, progesterone receptor, GATA3, and Jemison-1. In order to further evaluate the lesion, additional staining is performed at the [facility] with appropriate controls on the provided slides. The lesional cells are positive for S100 and negative for driscoll TRK. The next generation sequencing studies were negative for effusions associated with head and neck neoplasms (see separate report). This is a very challenging case. 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 This tumor may show immunoreactivity for S100 protein, but is typically negative for myopathy Toro marker such as p63 and SMMHC. I am unable to find in the literature where this tumor has been studied forexpression of SOX10. Reexcision with negative margins and continued clinical follow-up are recommended. This case was also reviewed by Dr. Hope of the breast pathology service who agrees that the that this is unlikely to be a breast primary carcinoma. Clinical correlation remains essential. Thank you for sending this case in consultation. Please call the Dermatopathology Consultation Service at [phone] with questions or if additional follow-up information becomes available regarding this patient. This case was reviewed in conjunction with the Dermatopathology Fellow, Dr. Keys. Laboratory Developed Test (LDT) Disclaimer: Performance characteristics of immunohistochemical, immunofluorescent and chromogenic in-situ hybridization tests have been determined by the performing laboratory within [facility] Pathology and Laboratory Medicine Department ([facility]), [facility], [facility], [facility], [facility],or [facility]) in a manner consistent with CLIA requirements. One or more of these tests have not been cleared or approved by the FDA. [facility] is regulated under CLIA as qualified to perform high-complexity testing. These tests are used for clinical purposes. They should not be regarded as invest igational or for research. Positive and negative controls stain appropriately. Clinical History CONSULT REQUESTED Performing Lab Diagnostic interpretation performed at [facility], [address] [place] [id number] CLIA# [id number] Foreclosure Home Inspector: Vipin Reed M.D. Resulting Agency [facility] Review of Systems: Review of Systems Constitutional: Negative for appetite change, chills, diaphoresis, fatigue and fever. HENT: Negative for congestion and sore throat. Eyes: Negative for photophobia and visual disturbance. Respiratory: Negative for cough, chest tightness and shortness of breath. Cardiovascular: Negative for chest pain and palpitations. Gastrointestinal: Negative for abdominal pain, diarrhea, nausea and vomiting. Endocrine: Negative for cold intolerance. Genitourinary: Negative for vaginal bleeding, vaginal discharge and vaginal pain. Musculoskeletal: Negative for arthralgias, back pain and joint swelling. Skin: Negative for color change, pallor and rash. Allergic/Immunologic: Negative for immunocompromised state. Neurological: Negative for dizziness, weakness, numbness and headaches. Psychiatric/Behavioral: Negative for dysphoric mood. The patient is not nervous/anxious. Patient History: Past Medical History: Diagnosis Date Adenocarcinoma (HCC) 02/17/2024 skin of right breast Allergic rhinitis BRCA1 negative BRCA2 negative Disease of thyroid gland Fibrocystic breast GERD (gastroesophageal reflux disease) 09/13 Hypertension Liver disease 09/13 Lung nodule Obesity Prediabetes Sleep apnea 03/2024 Sleep apnea, obstructive 2017 Past Surgical History: Procedure Laterality Date APPENDECTOMY BREAST BIOPSY Right 02/17/2024 Adenocarcinoma BREAST LUMPECTOMY Right 02/17/2024 2nd re-excision on 03/29/2024 CHOLECYSTECTOMY COLONOSCOPY HERNIA REPAIR HYSTERECTOMY 2007 age 41 OOPHORECTOMY Right Family History Problem Relation Name Age of Onset Diabetes Mother Gina Emphysema Mother Gina Heart failure Mother Gina Emphysema Father Karson Hypertension Father Karson Breast cancer Mother's Sister Ximena 55 Breast cancer Mother's Sister Brandy 55 Lung cancer Mother's Brother 55 Breast cancer Paternal Grandmother Alia 55 Stomach cancer Paternal Grandmother Alia Genetics The patient's medical history, reproductive history, breast history and family history have been reviewed. Using [employer], the family genogram has been generated and reviewed. A complete risk assessment has been performed using validated statistical models. The lifetime risk of breast cancer estimated by the Tyrer Cuzick v8 model is 26.78%. The estimated risk of a BRCA 1/2 mutation predicted by BRCAPRO is 0.77%. The estimated risk of a mutation in an HNPCC related gene is 0.1%. The patient does meet NCCN criteria for genetic testing for hereditary cancer. The patient accepted genetic testing? Yes. Her previous multigene genetic testing in 2019 was negative for deleterious mutation. Will request results from [facility] again. Patient's ROSA is signed and uploaded into MEDIA tab. Allergies Allergen Reactions Sulfamethoxazole-Trimethoprim Other and Unknown [place] strange on it spacey Light-headed bactrim Seasonal Trimethoprim Dizziness Current Outpatient Medications on File Prior to Visit Medication Sig Dispense Refill cholecalciferol (Vitamin D-3) 125 MCG (5000 UT) capsule Take 5,000 Units by mouth in the morning. Vitamin C and Zinc combo. hydroCHLOROthiazide (Microzide) 12.5 MG capsule Take 1 capsule (12.5 mg) by mouth daily. 90 capsule3 ibuprofen 200 MG tablet Take 200 mg by mouth every 6 hours as needed. metFORMIN XR (Glucophage-XR) 500 MG 24 hr tablet Take 1 tablet (500 mg) by mouth daily (with breakfast). 90 tablet 3 NON FORMULARY daily. SUPER DIGESTIVE ENZYME omeprazole (PriLOSEC) [address] capsule Take 20 mg by mouth every morning (before breakfast). Do notcrush or chew. oxymetazoline (Nasal Relief) 0.05 % nasal spray Administer 2 sprays into affected nostril(s) twice a day. Tirosint 112 MCG capsule Take 1 capsule (112 mcg) by mouth every morning (before breakfast). 90 capsule 3 Triamcinolone Acetonide (NASACORT AQ NA) Administer 2 sprays into each nostril Nightly. ursodiol (Actigall) 300 MG capsule Take 1 capsule (300 mg) by mouth 2 times daily. 180 capsule 3 [DISCONTINUED] hydroCHLOROthiazide (Microzide) 12.5 MG capsule Take 12.5 mg by mouth daily. [DISCONTINUED] metFORMIN XR (Glucophage-XR) 500 MG 24 hr tablet Take 500 mg by mouth daily (with breakfast). [DISCONTINUED] Tirosint 112 MCG capsule Take 112 mcg by mouth every morning (before breakfast). [DISCONTINUED] ursodiol (Actigall) 300 MG capsule Take 300 mg by mouth 2 times daily. No current facility-administered medications on file prior to visit. Physical Exam: BP 126/67 Pulse 90 Temp 36.9 C (98.4 F) Resp 20 Ht 5' 6 (1.676 m) Wt 278 lb (126 kg) BMI 44.87 kg/m Physical Exam Constitutional: General: She is not in acute distress. Appearance: Normal appearance. She is not ill-appearing, toxic-appearing or diaphoretic. HENT: Head: Normocephalic and atraumatic. Nose: Nose normal. Mouth/Throat: Mouth: Mucous membranes are moist. Pharynx: Oropharynx is clear. Eyes: General: Vision grossly intact. Conjunctiva/sclera: Conjunctivae normal. Cardiovascular: Rate and Rhythm: Normal rate and regular rhythm. Pulmonary: Effort: Pulmonary effort is normal. No respiratory distress. Breath sounds: Normal breath sounds. No wheezing or rales. Chest: Breasts: Right: Skin change (well healed incision cdi) present. No swelling, bleeding, inverted nipple, mass, nipple discharge or tenderness. Left: Normal. No swelling, bleeding, inverted nipple, mass, nipple discharge, skin change or tenderness. Musculoskeletal: General: No swelling or deformity. Normal range of motion. Cervical back: Normal range of motion and neck supple. Lymphadenopathy: Cervical: No cervical adenopathy. Right cervical: No superficial, deep or posterior cervical adenopathy. Left cervical: No superficial, deep or posterior cervical adenopathy. Upper Body: Right upper body: No supraclavicular, axillary or pectoral adenopathy. Left upper body: No supraclavicular, axillary or pectoral adenopathy. Skin: General: Skin is warm and dry. Neurological: General: No focal deficit present. Mental Status: She is alert and oriented to person, place, and time. Mental status is at baseline. Psychiatric: Mood and Affect: Mood normal. Behavior: Behavior normal. Thought Content: Thought content normal. Judgment: Judgment normal. Assessment & Plan: Cancer Staging No matching staging information was found for the patient. 1. At high risk for breast cancer - Bilateral breast MR with and without contrast 2. Family history of breast cancer - Bilateral breast MR with and without contrast 3. Breast screening Patient is a 59-year-old female with right chest skin cancer. She is also at high estimated lifetime risk of breast cancer based upon her family history. Today, we reviewed the current NCCN guidelines for high risk (>20% lifetime risk of breast cancer) screening, which recommend annual mammogram, annual MRI, monthly self-breast awareness, twice yearly clinical breast exam, consideration of genetic testing, and consideration of risk-reducing medication. Follow-up in 6 months for high risk exam. Next mammogram March 2025 and next MRI April 2025. Patient demonstrates understanding of and agreement with the above plan of care. All questions have been answered to her satisfaction. I have notified my patient of my upcoming departure from the [facility] and discussed options for their safe continuity of care at [facility]. Time attestation: I spent 30 minutes total on the day of the visit obtaining history, reviewing imaging and laboratory results, performing a physical exam and providing patient education and counseling. Vonnie Garza M.D. 11/29/2024 Culturally appropriate shared decision making was used to determine optimal course of workup and treatment for this patient. Please disregard any typographical errors. This note was partially dictated using voice recognitionsoftware. documented in this [facility]02-04-2025 History of Present illness Narrative* Sudhir Pedraza DO - 11/27/2024 1:20 PM EST Images from the original note were not included. [facility] [place] 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 Gomez - [facility] Fibroscan 2020 - F2 Obstructive sleep apnea syndrome Overview Bipap. Followed by Dr. Maldonado Primary hypertension History of esophageal stricture Overview Previous dilatation. History of thrombocytopenia Overview Prior eval with hematology - [facility] ITP v liver v bone marrow - determined no need for bone marrow biopsy. Monitor CBC. 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 Carter who consulted with [facility] [employer] Dr. Lewis - follow with US annually and watch for sxs - GI workup with EGD and image pancreas Multinodular goiter Overview US 01/24/24: R lobe - well-circumscribed heterogeneous nodule 1.2 x 1.2 x 1.1cm; L lobe - heterogeneous well-circumscribed nodule 1.1 x 1.1 x 0.9cm, another well- circumscribed heterogenous nodule with a hypoechoic halo 3.1 x 2.1 x 2.4cm with increased color blood flow (biopsy recommended for dominantL nodule) Last biopsy with Dr. Gleason was 02/27/24 showing a benign colloid nodule. [place] category II. US 11/09/22: multiple solid nodules in L lobe, largest solid nodule 3.6 x 2.3 x 2.3 cm, multiple nodules in R lobe, largest [id number]. US 10/20/21: R thyroid lobe 2 nodules, lower pole 1.2 x 1.1 x 1.1cm, TR4 nodule; local 0.4 x 0.5 x 0.5cm, TR3 nodule Mitral valve problem Overview Echo 12/09/21 ([place]): Mitral valve thickening noted on echo. Mildly enlarged LA. Mildly dilated aortic root. Echo 02/24/24 ([facility]): LVEF 60% (stable) Mildly enlarged LA Bileaflet diffuse mitral valve thickening Normal aortic root. Morbid obesity (HCC) Benign cyst of right kidney Overview Incidental. 11mm (2021 - ) Most of the time taken for this visit was spent in investigation and review of her prior records and consolidating the information. Follow up in about 6 weeks (around 01/08/2025) for weight management. On this date, 12/07/2024 I have spent 56 minutes reviewing previous notes, test results and [id number] with the patient discussing the diagnosis, pathophysiology, and management, as well as documenting on the day of the visit. There are no Patient Instructions on file for this visit. Subjective HPI This is a summary of her current specialists and conditions: Gastro - urosodiol and digestive enzymes - esophageal stricture - h/o dilatation (GERD worse afterwards) - periodic EGD for nava's q3yr (non dysplastic) - HUGGINS - fibroscan from 2020 Cardiology - mitral valve thickening (Last echo 02/2024) Urology - cysto was fine - protein in urine - cyst on kidney - d-mannose Endocrine - monitors hypothyroidism and thyroid nodules - surgeon (Dr. Gleason) has done FNA and consideration for surgery or ablation Obesity mgmt - feels that her weight contributes a lot to her other problems and wants to take a more proactive approach to her lifestyle habits - she takes metformin Psych - using Better help for stress Delinquency Counselor - Michael tumor; 2019 - R ovary - vaginal US yearly advised High risk breast clinic - monitored yearly Review of Systems Pertinent ROS noted in the HPI and all other systems are negative. Current Outpatient Medications Medication Sig Dispense Refill cholecalciferol (Vitamin D-3) 125 MCG (5000 UT) capsule Take 5,000 Units by mouth in the morning. Vitamin C and Zinc combo. ibuprofen 200 MG tablet Take 200 mg by mouth every 6 hours as needed. NON FORMULARY daily. SUPER DIGESTIVE ENZYME omeprazole (PriLOSEC) [address] capsule Take 20 mg by mouth every morning (before breakfast). Do notcrush or chew. oxymetazoline (Nasal Relief) 0.05 % nasal spray Administer 2 sprays into affected nostril(s) twice a day. Triamcinolone Acetonide (NASACORT AQ NA) Administer 2 sprays into each nostril Nightly. hydroCHLOROthiazide (Microzide) 12.5 MG capsule Take 1 capsule (12.5 mg) by mouth daily. 90 capsule3 metFORMIN XR (Glucophage-XR) 500 MG 24 hr tablet Take 1 tablet (500 mg) by mouth daily (with breakfast). 90 tablet 3 Tirosint 112 MCG capsule Take 1 capsule (112 mcg) by mouth every morning (before breakfast). 90 capsule 3 ursodiol (Actigall) 300 MG capsule Take 1 capsule (300 mg) by mouth 2 times daily. 180 capsule 3 No current facility-administered medications for this visit. 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 07/15/2020 Nonalcoholic steatohepatitis (HUGGINS) 07/15/2020 Objective BP 126/67 (BP Location: Left arm, Patient Position: Sitting, BP Cuff Size: Adult) Pulse 73 Temp36.2 C (97.2 F) (Temporal) Ht 5' 6 (1.676 m) Wt 278 lb (126 kg) SpO2 100% BMI 44.87 kg/m Physical Exam GEN: awake, alert, non-diaphoretic, no psychomotor agitation, no acute distress HEENT :Head: atraumatic, normocephalic, no rashes noted, no lesions noted Cardiopulmonary: no increased respiratory effort, speaking in clear sentences, I:E ratio WNL Neuro: cranial nerves grossly normal, speech normal rate and rhythm, orientation arrived to appointment on time with no prompting, moved both upper extremities equally Pysch: appearance, behavior, and attitude- well groomed, pleasant, cooperative Medications Discontinued During This Encounter Medication Reason metFORMIN XR (Glucophage-XR) 500 MG 24 hr tablet Reorder Sudhir Pedraza DO 12/07/2024 4:38 PM documented in this encounterSOhioHealth [facility] [id number] Telephone encounter Note* Telephone Encounter - Laurie Lassiter - 11/21/2024 9:51 AM EST Confirmed auth is in WQ and will be obtained closer to appt date. Follow up with Dr. Maldonado is scheduled in [place] on 01/31. LVM for pt to call back to confirm followup date/time. [facility] [id number] Miscellaneous Notes* Telephone Encounter - Laurie Lassiter - 11/21/2024 9:51 AM EST Confirmed auth is in WQ and will be obtained closer to appt date. Follow up with Dr. Maldonado is scheduled in [place] on 01/31. LVM for pt to call back to confirm followup date/time. * Telephone Encounter - Ioana Guerrier RCP - 11/21/2024 9:20 AM EST Sent secure chat message to [facility] central scheduling and they contacted patient directly to schedule CT chest 01/17/2025 in [place]. Will send to referral coordinators to obtain Auth closer to time of imaging. Patient should have appointment with Dr. Maldonado after imaging. * Telephone Encounter - Eliu Maldonado MD - 11/20/2024 2:50 PM EST Signed, thank you * Telephone Encounter - Sana Leger RN - 11/20/2024 12:[address] Maldonado, I have pended order for chest CT. Thanks * Telephone Encounter - Ioana Guerrier RCP - 11/20/2024 11:52 AM EST Discussed conference recommendations with Dr. Maldonado via secure chat. Per Dr. Maldonado's request, navigator contacted patient to review recommendations and assist with scheduling CT chest. Sent message to RN in pulmonary office to please pend referral for follow-up imaging to provider for signature and we will assist with scheduling. * Telephone Encounter - Cierra Silva RN - 11/20/2024 8:41 AM EST Recommendations are now available for provider review from discussion 11/20/24. documented in this encounterSOhioHealth Dublin Methodist [id number] Telephone encounter Note* Telephone Encounter - Ioana Guerrier RCP - 11/21/2024 9:20 AM EST Sent secure chat message to [facility] central scheduling and they contacted patient directly to schedule CT chest 01/17/2025 in [place]. Will send to referral coordinators to obtain Auth closer to time of imaging. Patient should have appointment with Dr. Maldonado after imaging. [facility] [id number] Telephone encounter Note* Telephone Encounter - Maci Kimbrough - 11/21/2024 7:04 AM EST Too early to auth will do closer to DOS [facility] [id number] Miscellaneous Notes* Telephone Encounter - Maci Kimbrough - 11/21/2024 7:04 AM EST Too early to auth will do closer to DOS * Telephone Encounter - Angelia Chang - 11/20/2024 5:39 PM EST Your patient has been scheduled for their CT Chest without contrast on 01/17/25 at [facility]. If testing requires an insurance authorization, the authorization must be in place 48 hours prior to the scheduled test or testing will be cancelled. Thank you, Central Scheduling documented in this encounterSOhioHealth Dublin Methodist [id number] Telephone encounter Note* Telephone Encounter - Angelia Chang - 11/20/2024 5:39 PM EST Your patient has been scheduled for their CT Chest without contrast on 01/17/25 at [facility]. If testing requires an insurance authorization, the authorization must be in place 48 hours prior to the scheduled test or testing will be cancelled. Thank you, Central Scheduling [facility] [id number] Telephone encounter Note* Telephone Encounter - Eliu Maldonado MD - 11/20/2024 2:50 PM EST Signed, thank you [facility] [id number] Miscellaneous Notes* Telephone Encounter - Eliu Maldonado MD - 11/20/2024 2:50 PM EST Signed, thank you * Telephone Encounter - Sana Leger RN - 11/20/2024 12:[address] Maldonado, I have pended order for chest CT. Thanks * Telephone Encounter - Ioana Guerrier RCP - 11/20/2024 11:52 AM EST Discussed conference recommendations with Dr. Maldonado via secure chat. Per Dr. Maldonado's request, navigator contacted patient to review recommendations and assist with scheduling CT chest. Sent message to RN in pulmonary office to please pend referral for follow-up imaging to provider for signature and we will assist with scheduling. * Telephone Encounter - Cierra Silva RN - 11/20/2024 8:41 AM EST Recommendations are now available for provider review from discussion 11/20/24. documented in this [facility]01-28-2025 Telephone encounter Note* Telephone Encounter - Sana Leger RN - 11/20/2024 12:[address] Maldonado, I have pended order for chest CT. Thanks [facility] [id number] NoteDiscussed [address] recommendations with Dr. Maldonado via secure chat. Per Dr. Maldonado's request, navigator contacted patient to review recommendations and assist with scheduling CT chest. Sent message to RN in pulmonary office to please pend referral for follow-up imaging to provider for signature and we will assist with scheduling.[facility]01-28-2025 Telephone encounter Note* Telephone Encounter - Ioana Guerrier RCP - 11/20/2024 11:52 AM EST Discussed conference recommendations with Dr. Maldonado via secure chat. Per Dr. Maldonado's request, navigator contacted patient to review recommendations and assist with scheduling CT chest. Sent message to RN in pulmonary office to please pend referral for follow-up imaging to provider for signature and we will assist with scheduling. [facility]01-28-2025 Telephone encounter Note* Telephone Encounter - Cierra Silva RN - 11/20/2024 8:41 AM EST Recommendations are now available for provider review from discussion 11/20/24. [employer][id number] History of Present illness Narrative* Cierra Silva RN - 11/20/2024 8:38 AM EST Lung Nodule Multidisciplinary Review Conference Consensus Recommendation Summary Privileged Information LUNG NODULE CONFERENCE CLINICAL SUMMARY Basic Demographic Information Brissa Jeffery Date of presentation : 11/20/24 1965 Presenting physician: Dr. Eliu Maldonado 59 y.o. [] Previous presentation date : N/A Presentation Type [] Prospective [] Retrospective [] Nodule Brief Clinical Summary & Lung Nodule Conference Review Recommendations 6 Brissa Jeffery Dx: ALFA Lung Nodules Presenter: Dr. Maldonado Clin: T N M Stage: Path: T N M Stage: : 1965 Smoking History: [] Current [] Former [x] Never Surg. Onc: Pulm: Eliu Maldonado Med. Onc: ENT: [facility] Imaging and Procedures [] Prospective [] Retrospective Breast clinic: Vonnie Elise PCP: Sudhir Pedraza Screening: MRI: Summary: 59YO, PMH adenocarcinoma, removed from R breast (skin), evaluated by Dr. Elise and deferred any additional breast surgery after fu imaging, thrombocytopenia, LINDSAY w/ BIPAP,chronic sinus issues, presented to [facility] ED in August 2024 with dizziness, hypoxia. Saw PCP in follow-up noting dizziness, chest pain, abdominal fullness, unintentional weight loss. Was sent for CT of chest and abdomen along with labs. Incidental 9 mm left upper lobe nodule identified. Patient was seen by Dr. Maldonado who ordered PET scan completed 10-19-2024. Present to review imaging and determine next steps in care. CT C: 09/07/24 PET: 10/19/24 CT A/P: PFT: Other: R breast US 04/19/24; MRI breast 04/2024 PATH: Recommendations: 1.) CT chest in 3 months Available Protocol Recommendation [] Yes Protocol: Report Completed by Cierra Silva RN 11/20/2024 Lung Nodule Conference Moderator-Arnulfo Cherry MD Recommendations from Lung Nodule Multidisciplinary Review Conference are based on national evidencebased guidelines. The plan used by the managing physician(s) may vary based on the status of the individual patient and the reports results made available at time of presentation. We recognize that this data set may change and that the final treatment plan may differ from this recommendation. documented in this [facility]01-28-2025 NoteLung Nodule Multidisciplinary Review Conference Consensus Recommendation Summary Privileged Information LUNG NODULE CONFERENCE CLINICAL SUMMARY Basic Demographic Information Brissa Jeffery Date of presentation : 11/20/24 1965 Presenting physician: Dr. Eliu Maldonado 59 y.o. [] Previous presentation date : N/A Presentation Type [] Prospective [] Retrospective [] Nodule Brief Clinical Summary & Lung Nodule Conference Review Recommendations 6 Brissa Jeffery Dx: ALFA Lung Nodules Presenter: Dr. Maldonado Clin: T N M Stage: Path: T N M Stage: : 1965 Smoking History: [] Current [] Former [x] Never Surg. Onc: Pulm: Eliu Maldonado Med. Onc: ENT: [facility] Imaging and Procedures [] Prospective [] Retrospective Breast clinic: Vonnie Elise PCP: Sudhir Pedraza Screening: MRI: Summary: 59YO, PMH adenocarcinoma, removed from R breast (skin), evaluated by Dr. Elise and deferred any additional breast surgery after fu imaging, thrombocytopenia, LINDSAY w/ BIPAP, chronic sinus issues, presented to [facility] ED in August 2024 with dizziness, hypoxia. Saw PCP in follow-up noting dizziness, chest pain, abdominal fullness, unintentional weight loss. Was sent for CT of chest and abdomen along with labs. Incidental 9 mm left upper lobe nodule identified. Patient was seen by Dr. Maldonado who ordered PET scan completed 10-19-2024. Present to review imaging and determine next steps in care. CT C: 09/07/24 PET: 10/19/24 CT A/P: PFT: Other: R breast US 04/19/24; MRI breast 04/2024 PATH: Recommendations: 1.) CT chest in 3 months Available Protocol Recommendation [] Yes Protocol: Report Completed by Cierra Silva RN 11/20/2024 Lung Nodule Conference Moderator-Arnulfo Cherry MD Recommendations from Lung Nodule Multidisciplinary Review Conference are based on national evidence based guidelines. The plan used by the managing physician(s) may vary based on the status of the individual patient and the reports results made available at time of presentation. We recognize that this data set may change and that the final treatment plan may differ from this recommendation.[facility]01-22-2025 History of Present illness Narrative* Eliu Maldonado MD - 11/14/2024 10:45 AM EST Images from the original note were not included. Answers submitted by the patient for this visit: Pulmonology Questionnaire (Submitted on 11/11/2024) Chief Complaint: Primary symptoms Do you have chest tightness?: Yes Do you have a cough?: Yes Do you experience frequent throat clearing?: Yes Do you have a hoarse voice?: Yes Do you have shortness of breath?: Yes Chronicity: recurrent When did you first notice your symptoms?: more than 1 month ago How often do your symptoms occur?: intermittently Since you first noticed this problem, how has it changed?: gradually improving Do you have chest pain?: Yes Do you have shortness of breath that occurs with effort or exertion?: Yes Do you have ear congestion?: Yes Do you have ear pain?: Yes Do you have headaches?: Yes Do you have heartburn?: Yes Do you have fatigue?: Yes Do you have muscle pain?: Yes Do you have nasal congestion?: Yes Do you have post-nasal drip?: Yes Do you have a runny nose?: Yes Do you have sneezing?: Yes Which of the following makes your symptoms worse?: any activity, change in weather, climbing stairs, eating, exercise, exposure to fumes, exposure to smoke, pollen, strenuous activity, URI Risk factors for lung disease: smoking/tobacco exposure 11/14/2024 REFERRING PHYSICIAN: Sudhir Pedraza DO REASON FOR REFERRAL: Chief Complaint Patient presents with Follow-up Chief complaint: Lung nodule, LINDSAY on BiPAP and nocturnal oxygen History of Present Illness: Doing well with the BiPAP and the oxygen, generally sleeping well. Gooddays and bad days with how she feels (see ROS). She and her are having some understandable anxiety about the lung nodule. ROS: Review of Systems Constitutional: Negative. HENT: Positive for ear pain, postnasal drip, rhinorrhea and sneezing. Eyes: Negative. Respiratory: Positive for cough and shortness of breath. HPI Cardiovascular: Positive for chest pain. Gastrointestinal: Negative. Endocrine: Negative. Musculoskeletal: Positive for myalgias. Skin: Negative. Allergic/Immunologic: Negative. Neurological: Positive for headaches. Hematological: Negative. Psychiatric/Behavioral: Negative. 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 Allergic rhinitis BRCA1 negative BRCA2 negative Disease of thyroid gland Fibrocystic breast GERD (gastroesophageal reflux disease) 09/13 Hypertension Liver disease 09/13 Obesity Prediabetes Sleep apnea 03/2024 Sleep apnea, obstructive 2018 Past Surgical History Past Surgical History: Procedure Laterality Date APPENDECTOMY BREAST BIOPSY Right 02/17/2024 Adenocarcinoma BREAST LUMPECTOMY Right 02/17/2024 2nd re-excision on 03/29/2024 CHOLECYSTECTOMY COLONOSCOPY HERNIA REPAIR HYSTERECTOMY age 41 OOPHORECTOMY Right Social History: Social History Socioeconomic History Marital status: Tobacco Use Smoking status: Never Passive exposure: Never Smokeless tobacco: Never Vaping Use Vaping status: Never Used Substance and Sexual Activity Alcohol use: Never Drug use: Never Sexual activity: Never control/protection: Surgical Social Drivers of Health Financial Resource Strain: Low Risk (05/16/2024) Overall Financial Resource Strain (CARDIA) Difficulty of Paying Living Expenses: Not hard at all Food Insecurity: No Food Insecurity (05/16/2024) Hunger Vital Sign Worried About Running Out of Food in the Last Year: Never true Ran Out of Food in the Last Year: Never true Transportation Needs: No Transportation Needs (05/16/2024) PRAPARE - Transportation Lack of Transportation (Medical): No Lack of Transportation (Non-Medical): No Physical Activity: Insufficiently Active (05/16/2024) Exercise Vital Sign Days of Exercise per Week: 5 days Minutes of Exercise per Session: 20 min Stress: No Stress Concern Present (05/16/2024) [employer] [place] [employer] - Occupational Stress Questionnaire Feeling of Stress : Not at all Social Connections: Socially Integrated (05/16/2024) Social Connection and Isolation Panel [NHANES] Frequency of Communication with Friends and Family: More than three times a week Frequency of Social Gatherings with Friends and Family: More than three times a week Attends Orthodox Services: 1 to 4 times per year Active Member of Clubs or Organizations: Yes Attends Club or Organization Meetings: More than 4 times per year Marital Status: Intimate Partner Violence: Patient Declined (05/16/2024) Humiliation, Afraid, Rape, and Kick questionnaire Fear of Current or Ex-Partner: Patient declined Emotionally Abused: Patient declined Physically Abused: Patient declined Sexually Abused: Patient declined Housing Stability: Low Risk (05/16/2024) Housing Stability Vital Sign Unable to Pay for Housing in the Last Year: No Number of Times Moved in the Last Year: 0 Homeless in the Last Year: No Medications: Current Outpatient Medications Medication Sig Dispense Refill cholecalciferol (Vitamin D-3) 125 MCG (5000 UT) capsule Take 5,000 Units by mouth in the morning. Vitamin C and Zinc combo. hydroCHLOROthiazide (Microzide) 12.5 MG capsule Take 12.5 mg by mouth daily. NON FORMULARY daily. SUPER DIGESTIVE ENZYME omeprazole (PriLOSEC) [address] capsule Take 20 mg by mouth every morning (before breakfast). Do notcrush or chew. oxymetazoline (Nasal Relief) 0.05 % nasal spray Administer 2 sprays into affected nostril(s) twice a day. Tirosint 112 MCG capsule Take 112 mcg by mouth every morning (before breakfast). Triamcinolone Acetonide (NASACORT AQ NA) Administer 2 sprays into each nostril Nightly. ursodiol (Actigall) 300 MG capsule Take 300 mg by mouth 2 times daily. No current facility-administered medications for this visit. Allergies: Allergies Allergen Reactions Sulfamethoxazole-Trimethoprim Other and Unknown [place] strange on it spacey Light-headed bactrim Seasonal Family History: Family History Problem Relation Name Age of Onset Diabetes Mother Gina Emphysema Mother Gina Heart failure Mother Gina Emphysema Father Karson Hypertension Father Karson Breast cancer Mother's Sister Ximena 55 Breast cancer Mother's Sister Brandy 55 Lung cancer Mother's Brother 55 Breast cancer Paternal Grandmother Alia 55 Stomach cancer Paternal Grandmother Alia Physical Exam: BP 138/89 (11/14/24 1034) Temp Pulse 90 (11/14/24 1034) Resp SpO2 Physical Exam Vitals and nursing note reviewed. Constitutional: General: She is not in acute distress. Appearance: Normal appearance. She is not ill-appearing, toxic-appearing or diaphoretic. HENT: Head: Normocephalic and atraumatic. Nose: Nose normal. Mouth/Throat: Mouth: Mucous membranes are moist. Pharynx: Oropharynx is clear. No oropharyngeal exudate or posterior oropharyngeal erythema. Eyes: Extraocular Movements: Extraocular movements intact. Conjunctiva/sclera: Conjunctivae normal. Pupils: Pupils are equal, round, and reactive to light. Cardiovascular: Rate and Rhythm: Normal rate and regular rhythm. Heart sounds: Normal heart sounds. Pulmonary: Effort: Pulmonary effort is normal. No respiratory distress. Breath sounds: No stridor. No wheezing, rhonchi or rales. Musculoskeletal: General: No swelling or deformity. Cervical back: Neck supple. No rigidity. Lymphadenopathy: Cervical: No cervical adenopathy. Skin: General: Skin is warm and dry. Neurological: General: No focal deficit present. Mental Status: She is alert and oriented to person, place, and time. Psychiatric: Mood and Affect: Mood normal. Behavior: Behavior normal. Thought Content: Thought content normal. Judgment: Judgment normal. Radiology: Reviewed her CT chest Reviewed her PET scan PFT: Outside PFTs normal Assessment and Plan: Brissa Noble was seen today for follow-up. Diagnoses and all orders for this visit: Lung nodule (Primary) LINDSAY treated with BiPAP Chronic respiratory failure with hypoxia (HCC) Class 3 severe obesity due to excess calories without serious comorbidity with body mass index (BMI) of 40.0 to 44.9 in adult (HCC) Asked that the lung nodule be presented at tumor board I would favor early biopsy Sent a secure message to my office Nocturnal BiPAP compliance reviewed on her phone, compliance is excellent with good clinical outcome Continue nocturnal oxygen, she is benefiting Follow-up: No follow-ups on file. documented in this [facility]12-16-2024 History of Present illness Narrative* Eliu Maldonado MD - 10/08/2024 10:30 AM EST Images from the original note were not included. Answers submitted by the patient for this visit: Pulmonology Questionnaire (Submitted on 10/04/2024) Chief Complaint: Primary symptoms Chronicity: new When did you first notice your symptoms?: more than 1 month ago How often do your symptoms occur?: intermittently Since you first noticed this problem, how has it changed?: gradually improving Do you have ear congestion?: Yes Do you have fatigue?: Yes Do you have nasal congestion?: Yes Do you have sneezing?: Yes Risk factors for lung disease: smoking/tobacco exposure 10/08/2024 REFERRING PHYSICIAN: Sudhir Pedraza DO REASON FOR REFERRAL: Chief Complaint Patient presents with Follow-up Chief complaint: LINDSAY on BIPAP and noct O2 History of Present Illness: Here for follow up. Sleeping with the BIPAP and O2 every night, sleeping better, but still feels like she's floating during the day until the evening. Wondering if she has an inner problem, sees Dr White this afternoon. Chronic sinus congestion, uses a combination ofFlonase and Afrin. Was taking Zyrtec as well. ROS: Review of Systems Constitutional: Negative. HENT: Positive for sneezing. Eyes: Negative. Respiratory: HPI Cardiovascular: Negative. Gastrointestinal: Negative. Endocrine: Negative. Musculoskeletal: Negative. Skin: Negative. Allergic/Immunologic: Negative. Neurological: Negative. Hematological: Negative. Psychiatric/Behavioral: Negative. 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 Allergic rhinitis BRCA1 negative BRCA2 negative Disease of thyroid gland Fibrocystic breast GERD (gastroesophageal reflux disease) 09/13 Hypertension Liver disease 09/13 Obesity Prediabetes Sleep apnea 03/2024 Sleep apnea, obstructive 2018 Past Surgical History Past Surgical History: Procedure Laterality Date APPENDECTOMY BREAST BIOPSY Right 02/17/2024 Adenocarcinoma BREAST LUMPECTOMY Right 02/17/2024 2nd re-excision on 03/29/2024 CHOLECYSTECTOMY COLONOSCOPY HERNIA REPAIR HYSTERECTOMY age 41 OOPHORECTOMY Right Social History: Social History Socioeconomic History Marital status: Tobacco Use Smoking status: Never Passive exposure: Never Smokeless tobacco: Never Vaping Use Vaping status: Never Used Substance and Sexual Activity Alcohol use: Never Drug use: Never Sexual activity: Never control/protection: Surgical Social Drivers of Health Financial Resource Strain: Low Risk (05/16/2024) Overall Financial Resource Strain (CARDIA) Difficulty of Paying Living Expenses: Not hard at all Food Insecurity: No Food Insecurity (05/16/2024) Hunger Vital Sign Worried About Running Out of Food in the Last Year: Never true Ran Out of Food in the Last Year: Never true Transportation Needs: No Transportation Needs (05/16/2024) PRAPARE - Transportation Lack of Transportation (Medical): No Lack of Transportation (Non-Medical): No Physical Activity: Insufficiently Active (05/16/2024) Exercise Vital Sign Days of Exercise per Week: 5 days Minutes of Exercise per Session: 20 min Stress: No Stress Concern Present (05/16/2024) [employer] [place] [employer] - Occupational Stress Questionnaire Feeling of Stress : Not at all Social Connections: Socially Integrated (05/16/2024) Social Connection and Isolation Panel [NHANES] Frequency of Communication with Friends and Family: More than three times a week Frequency of Social Gatherings with Friends and Family: More than three times a week Attends Orthodox Services: 1 to 4 times per year Active Member of Clubs or Organizations: Yes Attends Club or Organization Meetings: More than 4 times per year Marital Status: Intimate Partner Violence: Patient Declined (05/16/2024) Humiliation, Afraid, Rape, and Kick questionnaire Fear of Current or Ex-Partner: Patient declined Emotionally Abused: Patient declined Physically Abused: Patient declined Sexually Abused: Patient declined Housing Stability: Low Risk (05/16/2024) Housing Stability Vital Sign Unable to Pay for Housing in the Last Year: No Number of Times Moved in the Last Year: 0 Homeless in the Last Year: No Medications: Current Outpatient Medications Medication Sig Dispense Refill cholecalciferol (Vitamin D-3) 125 MCG (5000 UT) capsule Take 5,000 Units by mouth in the morning. Vitamin C and Zinc combo. hydroCHLOROthiazide (Microzide) 12.5 MG capsule Take 12.5 mg by mouth daily. NON FORMULARY daily. SUPER DIGESTIVE ENZYME omeprazole (PriLOSEC) [address] capsule Take 20 mg by mouth every morning (before breakfast). Do notcrush or chew. oxymetazoline (Nasal Relief) 0.05 % nasal spray Administer 2 sprays into affected nostril(s) twice a day. Tirosint 112 MCG capsule Take 112 mcg by mouth every morning (before breakfast). Triamcinolone Acetonide (NASACORT AQ NA) Administer 2 sprays into each nostril Nightly. ursodiol (Actigall) 300 MG capsule Take 300 mg by mouth 2 times daily. No current facility-administered medications for this visit. Allergies: Allergies Allergen Reactions Sulfamethoxazole-Trimethoprim Other and Unknown [place] strange on it spacey Light-headed bactrim Seasonal Family History: Family History Problem Relation Name Age of Onset Diabetes Mother Gina Emphysema Mother Gina Heart failure Mother Gina Emphysema Father Karson Hypertension Father Karson Breast cancer Mother's Sister Ximena 55 Breast cancer Mother's Sister Brandy 55 Lung cancer Mother's Brother 55 Breast cancer Paternal Grandmother Alia 55 Stomach cancer Paternal Grandmother Alia Physical Exam: BP Temp Pulse Resp SpO2 Physical Exam Vitals and nursing note reviewed. Constitutional: General: She is not in acute distress. Appearance: Normal appearance. She is obese. She is not ill-appearing, toxic- appearing or diaphoretic. HENT: Head: Normocephalic and atraumatic. Nose: Nose normal. Mouth/Throat: Mouth: Mucous membranes are moist. Pharynx: Oropharynx is clear. No oropharyngeal exudate or posterior oropharyngeal erythema. Eyes: Extraocular Movements: Extraocular movements intact. Conjunctiva/sclera: Conjunctivae normal. Pupils: Pupils are equal, round, and reactive to light. Cardiovascular: Rate and Rhythm: Normal rate and regular rhythm. Heart sounds: Normal heart sounds. Pulmonary: Effort: Pulmonary effort is normal. No respiratory distress. Breath sounds: No stridor. No wheezing, rhonchi or rales. Musculoskeletal: Cervical back: Neck supple. No rigidity. Lymphadenopathy: Cervical: No cervical adenopathy. Skin: General: Skin is warm and dry. Neurological: General: No focal deficit present. Mental Status: She is alert and oriented to person, place, and time. Psychiatric: Mood and Affect: Mood normal. Behavior: Behavior normal. Thought Content: Thought content normal. Judgment: Judgment normal. Radiology: Personally reviewed her chest CT with her PFT: In the media section., Outside records dated 07/18/2024 Completely normal. Assessment and Plan: Brissa Noble was seen today for follow-up. Diagnoses and all orders for this visit: Lung nodule (Primary) - PET/CT skull base to mid thigh; Future LINDSAY treated with BiPAP Nocturnal hypoxia Class 3 severe obesity due to excess calories without serious comorbidity with body mass index (BMI) of 40.0 to 44.9 in adult (HCC) 9 mm lung nodule in the never smoker PET scan Reviewed sleep juancho on her phone, her AHI is always less than 5 Compliance is great Continue nocturnal oxygen See what ENT says Follow-up: No follow-ups on file. documented in this [facility]12-16-2024 Instructions* Patient Instructions* Julio C Swift MA - 10/08/2024 10:30 AM EST YOUR APPOINTMENT TODAY WAS WITH THE [facility] LUNG NODULE [facility], COPD CLINIC, PULMONARY AND SLEEP MEDICINE OFFICE. PLEASE CALL OUR OFFICE AT [phone] IF YOU HAVE NOT RECEIVED YOUR TEST RESULTS 7 DAYS AFTER TESTING IS COMPLETED. PLEASE REMEMBER TO REQUEST REFILLS AT YOUR OFFICE VISITS. PHONE/FAX REQUESTS REQUIRE 48-72 HOURS FOR RESPONSE. A FRIENDLY REMINDER COPAYS ARE DUE AT TIME OF SERVICE. THANK YOU. Our Patients Are Important! We want to improve and you can help. After your visit we want you to feel: Listened to, Respected and have your health care explained. You may receive a survey asking you about your visit. Please complete the survey. We will use your feedback to make improvements. COVID-19 VACCINATION INFORMATION: PH. [phone] [email or web address] [facility] Central Scheduling [phone] [facility] [phone] documented in this [facility]12-16-2024 History of Present illness Narrative* Sudhir Pedraza DO - 10/08/2024 7:40 AM EST Images from the original note were not included. [facility] [place] [address] [facility] [id number] Visit Type: Follow Up Appointment PCP: Sudhir Pedraza DO Reason for Visit: Follow-up (3 month follow up) Assessment and Plan Assessment & Plan Shoulder blade pain Symptoms c/w muscular pain. No features suggestive of nerve impingement from the neck. Advised on conservative mgmt with dry needling, acupuncture, chiropractic or PT. She will speak with chiropractic about the plan. If too costly through him, then would consider PT referral for direct manipulation. Follow up in about 6 months (around 04/08/2025). There are no Patient Instructions on file for this visit. Subjective HPI She eliminated the metformin due to too many variables going on right now. 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 L eye floater - seen by Dr. Nina - retina is fine Referral to Dr. Sykes - specialist BP is looking good range. Trying to skip back and forth between the hydrochlorothiazide. She is on Bipap with 2L O2 at night. Thinking she needs to be assessed again to make sure this is proper for her. Review of Systems Pertinent ROS noted in the HPI and all other systems are negative. Current Outpatient Medications Medication Sig Dispense Refill cholecalciferol (Vitamin D-3) 125 MCG (5000 UT) capsule Take 5,000 Units by mouth in the morning. Vitamin C and Zinc combo. hydroCHLOROthiazide (Microzide) 12.5 MG capsule Take 12.5 mg by mouth daily. NON FORMULARY daily. SUPER DIGESTIVE ENZYME omeprazole (PriLOSEC) [address] capsule Take 20 mg by mouth every morning (before breakfast). Do notcrush or chew. oxymetazoline (Nasal Relief) 0.05 % nasal spray Administer 2 sprays into affected nostril(s) twice a day. Tirosint 112 MCG capsule Take 112 mcg by mouth every morning (before breakfast). Triamcinolone Acetonide (NASACORT AQ NA) Administer 2 sprays into each nostril Nightly. ursodiol (Actigall) 300 MG capsule Take 300 mg by mouth 2 times daily. No current facility-administered medications for this visit. 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 Normal ROM in the shoulder. Negative Spurlings compression test. Medications Discontinued During This Encounter Medication Reason metFORMIN XR (Glucophage-XR) 500 MG 24 hr tablet Med list cleanup Sudhir Pedraza DO 10/08/2024 4:56 PM documented in this [facility]11-25-2024 Telephone encounter Note* Telephone Encounter - Connor Ovalles - 09/17/2024 10:19 AM EST LVM with pt to call this office to schedule an appt to go over test results per S. Serb, She should be scheduled an appointment to review test results- can be virtual if needed- this should be with a [facility] physician. [place] [id number] Miscellaneous Notes* Telephone Encounter - Connor Ovalles - 09/17/2024 10:19 AM EST LVM with pt to call this office to schedule an appt to go over test results per S. Serb, She should be scheduled an appointment to review test results- can be virtual if needed- this should be with a [facility] physician. documented in this [facility]11-22-2024 Telephone encounter Note* Telephone Encounter - Ashley Whitney - 09/14/2024 3:05 PM EST Auth was already received when they called. Test is already performed as well. [place] [id number] Miscellaneous Notes* Telephone Encounter - Ashley Whitney - 09/14/2024 3:05 PM EST Auth was already received when they called. Test is already performed as well. * Telephone Encounter - Zarina Kapoor - 09/07/2024 9:06 AM EST Name of caller: Kala Contact phone number: [phone] Relationship to Patient: [place] Provider: Dr Pedraza Practice: [facility] Chief Complaint/Reason for Call: TREVOR [id number] 09/06/24-10/05/[address] of the chest with contrast approved CT of the abdomin with [id number] Best time of day caller can be reached: any Patient advised that office/PCP has 24-48 business hours to return their call: No documented in this [place] [id number] Telephone encounter Note* Telephone Encounter - Zarina Kapoor - 09/07/2024 9:06 AM EST Name of caller: Kala Contact phone number: [phone] Relationship to Patient: [place] Provider: Dr Pedraza Practice: [facility] Chief Complaint/Reason for Call: TREVOR [id number] 09/06/24-10/05/[address] of the chest with contrast approved CT of the abdomin with [id number] Best time of day caller can be reached: any Patient advised that office/PCP has 24-48 business hours to return their call: No [facility] [id number] History of Present illness Narrative* Larissa Chery LPN - 09/06/2024 8:40 AM EST During rooming, patient was asked if they would like a flu shot. She declined. * Sudhir Perdaza DO - 09/06/2024 8:40 AM EST Images from the original note were not included. [facility] - [address] [facility] [id number] Visit Type: ED FOLLOW UP PCP: Sudhir Pedraza DO Reason for Visit: ER Follow-up (ED follow up from 08/31/24 for dizziness related to sleep apnea. Pt reports she continues to have dizziness that gradually improves by the times she goes to bed, worse in the morning.) Assessment and Plan Brissa Noble was seen today for er follow-up. Diagnoses and all orders for this visit: Dizziness - CT chest abdomen with contrast; Future - Basic metabolic panel; Future - Basic metabolic panel Vaccination not carried out because of patient refusal - CT chest abdomen with contrast; Future - Basic metabolic panel; Future - Basic metabolic panel CO2 retention - CT chest abdomen with contrast; Future - Basic metabolic panel; Future - Basic metabolic panel Unintentional weight loss - CT chest abdomen with contrast; Future - Basic metabolic panel; Future - Basic metabolic panel Abdominal bloating - CT chest abdomen with contrast; Future - Basic metabolic panel; Future - Basic metabolic panel LUCERO (dyspnea on exertion) - CT chest abdomen with contrast; Future - Basic metabolic panel; Future - Basic metabolic panel Chest pain, unspecified type - CT chest abdomen with contrast; Future - Basic metabolic panel; Future - Basic metabolic panel Brissa Noble had a sudden change in her clinical status with SOA ,dizziness and chest pain starting earlier in the spring of this year. It was presumed to be related to other causes like LINDSAY and inaccurateseetings causing CO2 retention. She was thus switched to Bipap and recently started an O2 bleed in.However, she continues to feel poorly and no etiology has been identified. Given her history of thrombocytopenia, with a possible MDS picture I have suggested she be evaluatefor a PE. She has low O2, dizziness, and CO2 retention. She has also endorsed this sense of abdominal fullness and bloating which has not yet been identified. As such, I have suggested including a CT abdomen in our work up with the chest imaging. Follow up if symptoms worsen or fail to improve. There are no Patient Instructions on file for this visit. Subjective HPI Had been a few days not feeling well. And then got in the car to drive. And felt like she would pass out. Per ED visit on 08/31 - noted to have high CO2. They are trying to get her Bipap with O2 feed in. She has still been feeling poorly with dizziness. Somewhat improves during bedtime. And then worse again by the morning. It's a feeling like she might pass out. If she is staring at something she is finding she is breathholding. She started on O2 bleed in on Tuesday at 1.5L and then increased to 2L. She continues to feel poorly. No change Recently she started monitoring O2 and HR on her pulse ox through the night and see's an abrupt drop in O2 to 85% early in the night. And HR tends to run low range 50-60's range throughout the night. Review of Systems Pertinent ROS noted in the HPI and all other systems are negative. Current Outpatient Medications Medication Sig Dispense Refill cholecalciferol (Vitamin D-3) 125 MCG (5000 UT) capsule Take 5,000 Units by mouth in the morning. Vitamin C and Zinc combo. hydroCHLOROthiazide (Microzide) 12.5 MG capsule Take 12.5 mg by mouth daily. metFORMIN XR (Glucophage-XR) 500 MG 24 hr tablet Take 1 tablet (500 mg) by mouth daily (with breakfast). Do not crush, chew, or split. 30 tablet 11 NON FORMULARY daily. SUPER DIGESTIVE ENZYME oxymetazoline (Nasal Relief) 0.05 % nasal spray Administer 2 sprays into affected nostril(s) twice a day. Tirosint 112 MCG capsule Take 112 mcg by mouth every morning (before breakfast). Triamcinolone Acetonide (NASACORT AQ NA) Administer 2 sprays into each nostril Nightly. ursodiol (Actigall) 300 MG capsule Take 300 mg by mouth 2 times daily. No current facility-administered medications for this visit. 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 01/30/2024 Nava's esophagus 07/15/2020 Fatty liver 07/15/2020 Objective BP 116/74 (BP Location: Right arm, Patient Position: Sitting, BP Cuff Size: Adult) Pulse 80 Temp 36.9 C (98.4 F) (Temporal) Ht 5' 6 (1.676 m) Wt 268 lb (122 kg) SpO2 99% BMI 43.26 kg/m Physical Exam Gen: well appearing, no distress CV: RRR, no murmurs Lungs: CTAB, nonlabored, no wheezing Abd: soft, nt, nd, no masses or organomegaly Medications Discontinued During This Encounter Medication Reason Omeprazole 20 MG tablet delayed-release Med list cleanup Sudhir Pedraza DO 09/06/2024 11:04 AM On this date, 09/06/2024 I have spent 34 minutes reviewing previous notes, test results and [id number] with the patient discussing the diagnosis, pathophysiology, and management, as well as documenting on the day of the visit. documented in this [facility]11-12-2024 Telephone encounter Note* Telephone Encounter - Hina Caba - 09/04/2024 1:20 PM EST LVM for patient to call our office to reschedule cancelled follow up appointment due to provider being out of office. Will send MyChart message [facility] [id number] Miscellaneous Notes* Telephone Encounter - Hina Louisirineo - 09/04/2024 1:20 PM EST LVM for patient to call our office to reschedule cancelled follow up appointment due to provider being out of office. Will send MyChart message * Telephone Encounter - Ashley Jade - 09/03/2024 5:02 PM EST Name of caller: Brissa Noble Contact phone number: [phone] Relationship to Patient: patient Provider: Dr Maldonado Practice: Pulmonology Chief Complaint/Reason for Call: Patient wanting to know if she can be referred to Sleep Medicine. Patient stated that she feels that her symptoms are more sleep apnea related. Please call patient back to advise. Best time of day caller can be reached: Any Patient advised that office/PCP has 24-48 business hours to return their call: N/A documented in this encounterSOhio[facility] [id number] Telephone encounter Note* Telephone Encounter - Ashley Jade - 09/03/2024 5:02 PM EST Name of caller: Brissa Noble Contact phone number: [phone] Relationship to Patient: patient Provider: Dr Maldonado Practice: Pulmonology Chief Complaint/Reason for Call: Patient wanting to know if she can be referred to Sleep Medicine. Patient stated that she feels that her symptoms are more sleep apnea related. Please call patient back to advise. Best time of day caller can be reached: Any Patient advised that office/PCP has 24-48 business hours to return their call: N/A [facility] [id number] Telephone encounter Note* Telephone Encounter - Adela Knapp - 09/03/2024 9:27 AM EST Name of caller: Brissa Noble Contact phone number: [phone] Relationship to Patient: patient Provider: Dr Pedraza Practice: [facility] Chief Complaint/Reason for Call: Pt called to schedule an ED follow up with Dr Pedraza. Pt was inED for dizziness related to sleep apnea. Dr Pedraza did not have any availability and pt only wanted to schedule with Dr Pedraza. Pt stated she is seeing Dr Maldonado for a follow up and just wantedto make Dr Pedraza aware. Please advise. Best time of day caller can be reached: any Patient advised that office/PCP has 24-48 business hours to return their call: yes [place] [id number] Miscellaneous Notes* Telephone Encounter - Adela Knapp - 09/03/2024 9:27 AM EST Name of caller: Brissa Noble Contact phone number: [phone] Relationship to Patient: patient Provider: Dr Pedraza Practice: [facility] Chief Complaint/Reason for Call: Pt called to schedule an ED follow up with Dr Pedraza. Pt was inED for dizziness related to sleep apnea. Dr Pedraza did not have any availability and pt only wanted to schedule with Dr Pedraza. Pt stated she is seeing Dr Maldonado for a follow up and just wantedto make Dr Pedraza aware. Please advise. Best time of day caller can be reached: any Patient advised that office/PCP has 24-48 business hours to return their call: yes documented in this encounterSOhio[facility] [id number] Telephone encounter Note* Telephone Encounter - Chante Ledesma MA - 08/28/2024 2:49 PM EST Order placed in folder for sign. [facility] [id number] Miscellaneous Notes* Telephone Encounter - Chante Ledesma MA - 08/28/2024 2:49 PM EST Order placed in folder for sign. * Telephone Encounter - Eliu Maldonado MD - 08/28/2024 2:16 PM EST She needs 2 LPM O2 bled into her autopap at night * Telephone Encounter - Chante Ledesma MA - 08/28/2024 1:00 PM EST Overnight oxymetry result uploaded in media. * Telephone Encounter - Chante Ledesma MA - 08/21/2024 8:04 AM EDT Scanned and faxed. * Telephone Encounter - Chante Ledesma MA - 08/21/2024 8:02 AM EDT ----- Message from Eliu Maldonado MD sent at 08/20/2024 1:24 PM EDT ----- I would like this lady to get an overnight oximetry while wearing her auto BiPAP please documented in this [facility]11-05-2024 Telephone encounter Note* Telephone Encounter - Eliu Maldonado MD - 08/28/2024 2:16 PM EST She needs 2 LPM O2 bled into her autopap at night [facility] [employer] Work Phone: [phone] 786-149711-05-2024 Telephone encounter Note* Telephone Encounter - Chante Ledesma MA - 08/28/2024 1:00 PM EST Overnight oxymetry result uploaded in media. [facility] [id number] Telephone encounter Note* Telephone Encounter - Chante Ledesma MA - 08/21/2024 8:04 AM EDT Scanned and faxed. [facility] [id number] Telephone encounter Note* Telephone Encounter - Chante Ledesma MA - 08/21/2024 8:02 AM EDT ----- Message from Eliu Maldonado MD sent at 08/20/2024 1:24 PM EDT ----- I would like this lady to get an overnight oximetry while wearing her auto BiPAP please [facility] [id number] History of Present illness Narrative* Eliu Maldonado MD - 08/20/2024 1:15 PM EDT Images from the original note were not included. Patient was identified and seen today via Telehealth by agreement and consent. I used the followingTelehealth technology: Audio capability only. Total length of call 10 minutes. The patient was offered and advised video for a more comprehensive evaluation, but the patient declined or was unable touse video. Patient location: Patient Location: Home. This patient encounter is appropriate and reasonable under the circumstances: work . The patient has been advised of the potential risks and limitations of this mode of treatment (including but not limited to the absence of in-person examination) and has agreed to be treated in a remote fashion in spite of them. Any and all of the patient's/patient's family's questions on this issue have been answered and I have made no promises or guarantees to the patient. The patient has also been advised to contact this office for worsening conditions or problems, and seek emergency medical treatment and/or call 911 if the patient deems either neces luana. The patient stated that they are currently in the state of [place]. If the patient is a minor, permission has been obtained by the parent or guardian for the patient to receive medical care at this visit. 08/20/2024 REFERRING PHYSICIAN: Sudhir Pedraza DO REASON FOR REFERRAL: Chief Complaint Patient presents with Shortness of Breath Sleep Apnea History of Present Illness: Doing better with the BiPAP, sleeping better, feeling better. Breathingis back to what she considers normal, just short of breath on exertion but notes she is deconditioned and that she needs to lose weight. ROS: Review of Systems All other systems reviewed and are negative. 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 Allergic rhinitis BRCA1 negative BRCA2 negative Disease of thyroid gland Fibrocystic breast GERD (gastroesophageal reflux disease) 09/13 Hypertension Liver disease 09/13 Obesity Prediabetes Sleep apnea 03/2024 Past Surgical History Past Surgical History: Procedure Laterality Date APPENDECTOMY BREAST BIOPSY Right 02/17/2024 Adenocarcinoma BREAST LUMPECTOMY Right 02/17/2024 2nd re-excision on 03/29/2024 CHOLECYSTECTOMY COLONOSCOPY HERNIA REPAIR HYSTERECTOMY age 41 OOPHORECTOMY Right Social History: Social History Socioeconomic History Marital status: Tobacco Use Smoking status: Never Passive exposure: Never Smokeless tobacco: Never Vaping Use Vaping status: Never Used Substance and Sexual Activity Alcohol use: Never Drug use: Never Social Drivers of Health Financial Resource Strain: Low Risk (05/16/2024) Overall Financial Resource Strain (CARDIA) Difficulty of Paying Living Expenses: Not hard at all Food Insecurity: No Food Insecurity (05/16/2024) Hunger Vital Sign Worried About Running Out of Food in the Last Year: Never true Ran Out of Food in the Last Year: Never true Transportation Needs: No Transportation Needs (05/16/2024) PRAPARE - Transportation Lack of Transportation (Medical): No Lack of Transportation (Non-Medical): No Physical Activity: Insufficiently Active (05/16/2024) Exercise Vital Sign Days of Exercise per Week: 5 days Minutes of Exercise per Session: 20 min Stress: No Stress Concern Present (05/16/2024) [employer] [place] [employer] - Occupational Stress Questionnaire Feeling of Stress : Not at all Social Connections: Socially Integrated (05/16/2024) Social Connection and Isolation Panel [NHANES] Frequency of Communication with Friends and Family: More than three times a week Frequency of Social Gatherings with Friends and Family: More than three times a week Attends Orthodox Services: 1 to 4 times per year Active Member of Clubs or Organizations: Yes Attends Club or Organization Meetings: More than 4 times per year Marital Status: Intimate Partner Violence: Patient Declined (05/16/2024) Humiliation, Afraid, Rape, and Kick questionnaire Fear of Current or Ex-Partner: Patient declined Emotionally Abused: Patient declined Physically Abused: Patient declined Sexually Abused: Patient declined Housing Stability: Low Risk (05/16/2024) Housing Stability Vital Sign Unable to Pay for Housing in the Last Year: No Number of Times Moved in the Last Year: 0 Homeless in the Last Year: No Medications: Current Outpatient Medications Medication Sig Dispense Refill cetirizine (ZyrTEC) 10 MG tablet Take by mouth. cholecalciferol (Vitamin D-3) 125 MCG (5000 UT) capsule Take 5,000 Units by mouth in the morning. Vitamin C and Zinc combo. hydroCHLOROthiazide (Microzide) 12.5 MG capsule Take 12.5 mg by mouth daily. metFORMIN XR (Glucophage-XR) 500 MG 24 hr tablet Take 1 tablet (500 mg) by mouth daily (with breakfast). Do not crush, chew, or split. 30 tablet 11 NON FORMULARY daily. SUPER DIGESTIVE ENZYME Omeprazole 20 MG tablet delayed-release Take 20 mg by mouth daily. Tirosint 112 MCG capsule Take 112 mcg by mouth every morning (before breakfast). Triamcinolone Acetonide (NASACORT AQ NA) Administer 2 sprays into each nostril Nightly. ursodiol (Actigall) 300 MG capsule Take 300 mg by mouth 2 times daily. No current facility-administered medications for this visit. Allergies: Allergies Allergen Reactions Esomeprazole Other Throat closing and dizzy. Sulfamethoxazole-Trimethoprim Other and Unknown [place] strange on it spacey Light-headed bactrim Seasonal Family History: Family History Problem Relation Name Age of Onset Breast cancer Mother's Sister Ximena 55 Breast cancer Mother's Sister Brandy 55 Lung cancer Mother's Brother 55 Breast cancer Paternal Grandmother Alia 55 Stomach cancer Paternal Grandmother Alia Physical Exam: BP Temp Pulse Resp SpO2 Physical Exam televisit Radiology: Outside CXR read as normal PFT: Outside PFTs normal Assessment and Plan: Brissa Noble was seen today for shortness of breath and sleep apnea. Diagnoses and all orders for this visit: LINDSAY treated with BiPAP (Primary) - Pulse oximetry, overnight; Future Shortness of breath Class 3 severe obesity due to excess calories without serious comorbidity with body mass index (BMI) of 40.0 to 44.9 in adult (HCC) She is currently on an AutoBiPAP check overnight oximetry on BiPAP No indication for further testing about her breathing Follow-up: No follow-ups on file. documented in this [facility]09-19-2024 History of Present illness Narrative* Eliu Maldonado MD - 07/12/2024 2:30 PM EDT Images from the original note were not included. Answers submitted by the patient for this visit: Pulmonology Questionnaire (Submitted on 07/05/2024) Chief Complaint: Primary symptoms Do you have chest tightness?: Yes Do you have a cough?: Yes Do you have difficulty breathing?: Yes Do you experience frequent throat clearing?: Yes Do you have a hoarse voice?: Yes Do you have shortness of breath?: Yes Chronicity: new When did you first notice your symptoms?: more than 1 month ago How often do your symptoms occur?: daily Since you first noticed this problem, how has it changed?: resolved Have you had a change in appetite?: Yes Do you have chest pain?: Yes Do you have shortness of breath that occurs with effort or exertion?: Yes Do you have heartburn?: Yes Do you have fatigue?: Yes Do you have muscle pain?: Yes Do you have nasal congestion?: Yes Do you have a runny nose?: Yes Which of the following makes your symptoms worse?: climbing stairs, eating, exercise Which of the following makes your symptoms better?: cold air, diuretics, rest Risk factors for lung disease: animal exposure, smoking/tobacco exposure 07/12/2024 REFERRING PHYSICIAN: Sudhir Pedraza DO REASON FOR REFERRAL: Chief Complaint Patient presents with New Patient Cough History of Present Illness: Developed a cold last August, says she does that every year. After that had SOBOE, chest tightness/soreness, and cough, no wheeze. Has LINDSAY, sleeping with CPAP. Saw a upholstery department supervisor in [place], she asked for a CXR and he did 8 tests and she says gave her no results, none of them were any kind of chest imaging. He told her my tests trump a chest x-ray. He changed her from CPAP to BIPAP after a sleep study telling her something about hypoventilating. She has beenon an auto BiPAP for 2 weeks and actually feels like she is doing better. She says the shortness ofbreath, tightness, and cough have all essentially resolved. I I have never wheezed. Was prescribed a Flovent inhaler by the upholstery department supervisor in [place], it was cost prohibitive. Was given an albuterolinhaler after a 6-minute walk, then she was walked again to see if it made a difference; it did not. Never smoker, never diagnosed with asthma, works from home. Significant passive smoke exposure up until the age of 26. Mom and dad both had COPD, mom of it. No family history of asthma. Workingon losing weight. ROS: Review of Systems Constitutional: Positive for appetite change. HENT: Positive for rhinorrhea. Eyes: Negative. Respiratory: Positive for cough and shortness of breath. HPI Cardiovascular: Positive for chest pain. Gastrointestinal: Negative. Endocrine: Negative. Musculoskeletal: Positive for myalgias. Skin: Negative. Allergic/Immunologic: Negative. Neurological: Negative. Hematological: Negative. Psychiatric/Behavioral: Negative. 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 Allergic rhinitis BRCA1 negative BRCA2 negative Disease of thyroid gland Fibrocystic breast GERD (gastroesophageal reflux disease) 09/13 Hypertension Liver disease 09/13 Obesity Prediabetes Sleep apnea 03/2024 Past Surgical History Past Surgical History: Procedure Laterality Date APPENDECTOMY BREAST BIOPSY Right 02/17/2024 Adenocarcinoma BREAST LUMPECTOMY Right 02/17/2024 2nd re-excision on 03/29/2024 CHOLECYSTECTOMY COLONOSCOPY HERNIA REPAIR HYSTERECTOMY age 41 OOPHORECTOMY Right Social History: Social History Socioeconomic History Marital status: Tobacco Use Smoking status: Never Passive exposure: Never Smokeless tobacco: Never Vaping Use Vaping status: Never Used Substance and Sexual Activity Alcohol use: Never Drug use: Never Social Determinants of Health Financial Resource Strain: Low Risk (05/16/2024) Overall Financial Resource Strain (CARDIA) Difficulty of Paying Living Expenses: Not hard at all Food Insecurity: No Food Insecurity (05/16/2024) Hunger Vital Sign Worried About Running Out of Food in the Last Year: Never true Ran Out of Food in the Last Year: Never true Transportation Needs: No Transportation Needs (05/16/2024) PRAPARE - Transportation Lack of Transportation (Medical): No Lack of Transportation (Non-Medical): No Physical Activity: Insufficiently Active (05/16/2024) Exercise Vital Sign Days of Exercise per Week: 5 days Minutes of Exercise per Session: 20 min Stress: No Stress Concern Present (05/16/2024) [employer] [place] [employer] - Occupational Stress Questionnaire Feeling of Stress : Not at all Social Connections: Socially Integrated (05/16/2024) Social Connection and Isolation Panel [NHANES] Frequency of Communication with Friends and Family: More than three times a week Frequency of Social Gatherings with Friends and Family: More than three times a week Attends Orthodox Services: 1 to 4 times per year Active Member of Clubs or Organizations: Yes Attends Club or Organization Meetings: More than 4 times per year Marital Status: Intimate Partner Violence: Patient Declined (05/16/2024) Humiliation, Afraid, Rape, and Kick questionnaire Fear of Current or Ex-Partner: Patient declined Emotionally Abused: Patient declined Physically Abused: Patient declined Sexually Abused: Patient declined Housing Stability: Low Risk (05/16/2024) Housing Stability Vital Sign Unable to Pay for Housing in the Last Year: No Number of Times Moved in the Last Year: 0 Homeless in the Last Year: No Medications: Current Outpatient Medications Medication Sig Dispense Refill cetirizine (ZyrTEC) 10 MG tablet Take by mouth. cholecalciferol (Vitamin D-3) 125 MCG (5000 UT) capsule Take 5,000 Units by mouth in the morning. Vitamin C and Zinc combo. hydroCHLOROthiazide (Microzide) 12.5 MG capsule Take 12.5 mg by mouth daily. metFORMIN XR (Glucophage-XR) 500 MG 24 hr tablet Take 1 tablet (500 mg) by mouth daily (with breakfast). Do not crush, chew, or split. 30 tablet 11 NON FORMULARY daily. SUPER DIGESTIVE ENZYME Omeprazole 20 MG tablet delayed-release Take 20 mg by mouth daily. Tirosint 112 MCG capsule Take 112 mcg by mouth every morning (before breakfast). Triamcinolone Acetonide (NASACORT AQ NA) Administer 2 sprays into each nostril Nightly. ursodiol (Actigall) 300 MG capsule Take 300 mg by mouth 2 times daily. No current facility-administered medications for this visit. Allergies: Allergies Allergen Reactions Esomeprazole Other Throat closing and dizzy. Sulfamethoxazole-Trimethoprim Other and Unknown [place] strange on it spacey Light-headed bactrim Seasonal Family History: Family History Problem Relation Name Age of Onset Breast cancer Mother's Sister Ximena 55 Breast cancer Mother's Sister Brandy 55 Lung cancer Mother's Brother 55 Breast cancer Paternal Grandmother Alia 55 Stomach cancer Paternal Grandmother Alia Physical Exam: BP Temp Pulse Resp SpO2 Physical Exam Vitals and nursing note reviewed. Constitutional: General: She is not in acute distress. Appearance: Normal appearance. She is obese. She is not ill-appearing, toxic- appearing or diaphoretic. HENT: Head: Normocephalic and atraumatic. Nose: Nose normal. Mouth/Throat: Mouth: Mucous membranes are moist. Pharynx: Oropharynx is clear. No oropharyngeal exudate or posterior oropharyngeal erythema. Eyes: Extraocular Movements: Extraocular movements intact. Conjunctiva/sclera: Conjunctivae normal. Pupils: Pupils are equal, round, and reactive to light. Cardiovascular: Rate and Rhythm: Normal rate and regular rhythm. Heart sounds: Normal heart sounds. Pulmonary: Effort: Pulmonary effort is normal. No respiratory distress. Breath sounds: No stridor. No wheezing, rhonchi or rales. Musculoskeletal: General: No swelling or deformity. Cervical back: Neck supple. No rigidity. Lymphadenopathy: Cervical: No cervical adenopathy. Skin: General: Skin is warm and dry. Neurological: General: No focal deficit present. Mental Status: She is alert and oriented to person, place, and time. Psychiatric: Mood and Affect: Mood normal. Behavior: Behavior normal. Thought Content: Thought content normal. Judgment: Judgment normal. Radiology: Outside CXR reports read as NAD PFT: I cannot see these Assessment and Plan: Brissa was seen today for new patient and cough. 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 Follow-up: No follow-ups on file. documented in this [facility]09-19-2024 Instructions* Patient Instructions* Steffi Hanson MA - 07/12/2024 2:30 PM EDT YOUR APPOINTMENT TODAY WAS WITH THE [facility], COPD CLINIC, PULMONARY AND SLEEP MEDICINE OFFICE. PLEASE CALL OUR OFFICE AT [phone] IF YOU HAVE NOT RECEIVED YOUR TEST RESULTS 7 DAYS AFTER TESTING IS COMPLETED. PLEASE REMEMBER TO REQUEST REFILLS AT YOUR OFFICE VISITS. PHONE/FAX REQUESTS REQUIRE 48-72 HOURS FOR RESPONSE. A FRIENDLY REMINDER COPAYS ARE DUE AT TIME OF SERVICE. THANK YOU. Our Patients Are Important! We want to improve and you can help. After your visit we want you to feel: Listened to, Respected and have your health care explained. You may receive a survey asking you about your visit. Please complete the survey. We will use your feedback to make improvements. COVID-19 VACCINATION INFORMATION: PH. [phone] [email or web address] [facility] Central Scheduling [phone] [facility] Sleep Scheduling [phone] documented in this [facility]09-18-2024 History of Present illness Narrative* Sudhir Pedraza DO - 07/11/2024 8:40 AM EDT Images from the original note were not included. [facility] PRIMARY [facility] [address] [facility] [id number] Visit Type: Follow Up Appointment PCP: Sudhir Pedraza DO Reason for Visit: Follow-up (4 week follow up) Assessment and Plan Brissa was seen today for follow-up. Diagnoses and all orders for this visit: Class 3 severe obesity due to excess calories without serious comorbidity with body mass index (BMI) of 45.0 to 49.9 in adult (HCC) Comments: continue metformin at current dose. she is making good progress so far. Vaccination not carried out because of patient refusal Dyspnea on exertion Comments: agree with need for pulmonary and cardiac work up to continue. she did have some diffuse mitral valve thickening on an echo, but unclear if this is causing any functional issues. (Would appreciate cardiology opinion on the echo findings) Follow up in about 3 months (around 2024) for weight management. There are no Patient Instructions on file for this visit. Subjective HPI Obesity - follow-up metformin started on 06/12 - weight 280 --> 273 - able to drink water - no significant SE to the med - back on digestive enzyme which is helping her bowels - accupuncture for weight mgmt - this helps with physical symptoms Starting to take magnesium d/t the zegrid. Upper back discomfort. Magnet Maker adjusted her and helped with use of the foam roller. Chest discomfort - cxr performed - wnl. CPAP --> Bipap has helped some. Has first visit with , pulmonary, tomorrow. Cardio evaluation pending. She is trying to work on elimination diet with functional medicine provider. CRP performed and mildly elevated still. Doing balwinder mcnamara to help with diet. Protein 100g total per day. GI suggested refractory GERD - advised to increase omeprazole to 40mg instead of the 20mg. Review of Systems Pertinent ROS noted in the HPI and all other systems are negative. Current Outpatient Medications Medication Sig Dispense Refill cetirizine (ZyrTEC) 10 MG tablet Take by mouth. cholecalciferol (Vitamin D-3) 125 MCG (5000 UT) capsule Take 5,000 Units by mouth in the morning. Vitamin C and Zinc combo. hydroCHLOROthiazide (Microzide) 12.5 MG capsule Take 12.5 mg by mouth daily. metFORMIN XR (Glucophage-XR) 500 MG 24 hr tablet Take 1 tablet (500 mg) by mouth daily (with breakfast). Do not crush, chew, or split. 30 tablet 11 NON FORMULARY daily. SUPER DIGESTIVE ENZYME Omeprazole 20 MG tablet delayed-release Take 20 mg by mouth daily. Tirosint 112 MCG capsule Take 112 mcg by mouth every morning (before breakfast). Triamcinolone Acetonide (NASACORT AQ NA) Administer 2 sprays into each nostril Nightly. ursodiol (Actigall) 300 MG capsule Take 300 mg by mouth 2 times daily. No current facility-administered medications for this visit. 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 01/30/2024 Nava's esophagus 07/15/2020 Fatty liver 07/15/2020 Objective BP 123/62 (BP Location: Right arm, Patient Position: Sitting, BP Cuff Size: Adult) Pulse 73 Temp 36.8 C (98.3 F) (Temporal) Ht 5' 5 (1.651 m) Wt 273 lb (124 kg) SpO2 99% BMI 45.43 kg/m Physical Exam GEN: awake, alert, non-diaphoretic, no psychomotor agitation, no acute distress HEENT :Head: atraumatic, normocephalic, no rashes noted, no lesions noted Cardiopulmonary: no increased respiratory effort, speaking in clear sentences, I:E ratio WNL Neuro: cranial nerves grossly normal, speech normal rate and rhythm, orientation arrived to appointment on time with no prompting, moved both upper extremities equally Pysch: appearance, behavior, and attitude- well groomed, pleasant, cooperative Medications Discontinued During This Encounter Medication Reason loratadine (Claritin) 10 MG tablet Med list cleanup fluticasone (Flovent) 110 MCG/ACT inhaler Med list cleanup Multiple Vitamin (multivitamin) tablet Med list cleanup sucralfate (Carafate) 1 GM/10ML suspension Med list cleanup Sudhir Pedraza DO 07/11/2024 4:34 PM * Larissa Chery LPN - 07/11/2024 8:40 AM EDT During rooming, patient was asked if they would like a flu shot. She declined. documented in this [facility]08-26-2024 Telephone encounter Note* Telephone Encounter - Getachew Merino - 06/18/2024 2:08 PM EDT Name of Caller: Brissa Noble Contact Reason for Appointment: Brissa Noble subitted an online web request to schedule an appointment for sleep apnea. States that she has been having problems with her CPAP(she cannot use at night), and it was purchased from [employer] in [place]. She would like to establish with a local provider. Please contactto schedule. [id number] Miscellaneous Notes* Telephone Encounter - Getachew Merino - 06/18/2024 2:08 PM EDT Name of Caller: Brissa Noble Contact Reason for Appointment: Brissa Noble subitted an online web request to schedule an appointment for sleep apnea. States that she has been having problems with her CPAP(she cannot use at night), and it was purchased from [employer] in [place]. She would like to establish with a local provider. Please contactto schedule. Office Name: Sleep Medicine documented in this [facility]08-21-2024 History of Present illness Narrative* Jarret Toth MA - 06/13/2024 10:15 AM EDT A pot liner was offered to be present during her exam. The patient: declined * Martin Hyatt MD - 06/13/2024 10:15 AM EDT Brissa Jeffery 06/13/2023 58 y.o. Primary Care Physician: Sudhir Pedraza DO Chief Complaint Patient presents with Gynecologic Exam HPI : Brissa Jeffery is a 58 y.o. 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 Carter who consulted with [employer] Dr. Lewis - follow with US annually and watch for sxs - GI workup with EGD and image pancreas Last US 03/2024 Impression Uterus surgically absent. Cervix visualized. Nabothian cysts noted. Bilateral ovaries not seen. Right ovary is surgically absent; left ovary not seen. There is no free fluid visualized. Last colonoscopy 2018 Preventative Health Testing: Date of Last Pap Smear: a few years ago Goes to high risk breast clinic - had a lesion on the skin of her breast that was skin adenocarcinoma. Excision by derm. Now seeing Dr. Garza as well 2019 Multigene genetic testing negative 01/2024- Skin adenocarcinoma on breast skin. Not a breast cancer 03/2024: b/l dx mammogram Right breast US 04/2024 Breast MRI - negative OB History Para Term AB Living 1 1 1 SAB IAB Ectopic Multiple Live Births # Outcome Date GA Lbr Hcamp/2nd Weight Sex Type Anes PTL Lv 1 Term Vag-Spont Past Medical History: Diagnosis Date Adenocarcinoma (HCC) 02/17/2024 skin of right breast Allergic rhinitis BRCA1 negative BRCA2 negative Disease of thyroid gland Fibrocystic breast GERD (gastroesophageal reflux disease) 09/13 Hypertension Liver disease 09/13 Obesity Prediabetes Sleep apnea 03/2024 Past Surgical History: Procedure Laterality Date APPENDECTOMY BREAST BIOPSY Right 02/17/2024 Adenocarcinoma BREAST LUMPECTOMY Right 02/17/2024 2nd re-excision on 03/29/2024 CHOLECYSTECTOMY COLONOSCOPY HERNIA REPAIR HYSTERECTOMY age 41 OOPHORECTOMY Right Family History Problem Relation Name Age of Onset Breast cancer Mother's Sister Ximena 55 Breast cancer Mother's Sister Brandy 55 Lung cancer Mother's Brother 55 Breast cancer Paternal Grandmother Alia 55 Stomach cancer Paternal Grandmother Alia Social History Socioeconomic History Marital status: Spouse name: Not on file Number of children: Not on file Years of education: Not on file Highest education level: Not on file Occupational History Not on file Tobacco Use Smoking status: Former Types: Cigarettes Passive exposure: Past Smokeless tobacco: Never Vaping Use Vaping status: Never Used Substance and Sexual Activity Alcohol use: Never Drug use: Never Sexual activity: Not on file Other Topics Concern Not on file Social History Narrative Not on file Social Determinants of Health Financial Resource Strain: Low Risk (05/16/2024) Overall Financial Resource Strain (CARDIA) Difficulty of Paying Living Expenses: Not hard at all Food Insecurity: No Food Insecurity (05/16/2024) Hunger Vital Sign Worried About Running Out of Food in the Last Year: Never true Ran Out of Food in the Last Year: Never true Transportation Needs: No Transportation Needs (05/16/2024) PRAPARE - Transportation Lack of Transportation (Medical): No Lack of Transportation (Non-Medical): No Physical Activity: Insufficiently Active (05/16/2024) Exercise Vital Sign Days of Exercise per Week: 5 days Minutes of Exercise per Session: 20 min Stress: No Stress Concern Present (05/16/2024) [employer] [place] [employer] - Occupational Stress Questionnaire Feeling of Stress : Not at all Social Connections: Socially Integrated (05/16/2024) Social Connection and Isolation Panel [NHANES] Frequency of Communication with Friends and Family: More than three times a week Frequency of Social Gatherings with Friends and Family: More than three times a week Attends Orthodox Services: 1 to 4 times per year Active Member of Clubs or Organizations: Yes Attends Club or Organization Meetings: More than 4 times per year Marital Status: Intimate Partner Violence: Patient Declined (05/16/2024) Humiliation, Afraid, Rape, and Kick questionnaire Fear of Current or Ex-Partner: Patient declined Emotionally Abused: Patient declined Physically Abused: Patient declined Sexually Abused: Patient declined Housing Stability: Low Risk (05/16/2024) Housing Stability Vital Sign Unable to Pay for Housing in the Last Year: No Number of Times Moved in the Last Year: 0 Homeless in the Last Year: No MEDICATIONS: Current Outpatient Medications Medication Sig Dispense Refill cholecalciferol (Vitamin D-3) 125 MCG (5000 UT) capsule Take 5,000 Units by mouth in the morning. fluticasone (Flovent) 110 MCG/ACT inhaler Inhale 1 puff in the morning and 1 puff in the evening. Rinse mouth with water after use to reduce aftertaste and incidence of candidiasis. Do not swallow.. hydroCHLOROthiazide (Microzide) 12.5 MG capsule Take 12.5 mg by mouth daily. loratadine (Claritin) 10 MG tablet Take 10 mg by mouth daily. Seasonal metFORMIN XR (Glucophage-XR) 500 MG 24 hr tablet Take 1 tablet (500 mg) by mouth daily (with breakfast). Do not crush, chew, or split. 30 tablet 11 Multiple Vitamin (multivitamin) tablet Take 1 tablet by mouth daily. NON FORMULARY daily. SUPER DIGESTIVE ENZYME Omeprazole 20 MG tablet delayed-release Take 20 mg by mouth daily. sucralfate (Carafate) 1 GM/10ML suspension 10 ML ORALLY THREE TIMES A DAY FOR 30 DAYS Tirosint 112 MCG capsule Take 112 mcg by mouth every morning (before breakfast). Triamcinolone Acetonide (NASACORT AQ NA) Administer 2 sprays into each nostril Nightly. ursodiol (Actigall) 300 MG capsule Take 300 mg by mouth 2 times daily. No current facility-administered medications for this visit. ALLERGIES: Allergies as of 06/13/2024 - Reviewed 06/13/2024 Allergen Reaction Noted Esomeprazole Other 08/24/2021 Sulfamethoxazole-trimethoprim Other and Unknown 03/21/2018 Seasonal 05/16/2024 REVIEW OF SYSTEMS: CONSTIUTIONAL: No weight change or fatigue CV: No Chest Pain with Exertion, Palpitations, Syncope, Edema, Arrhythmia RESPIRATORY: No SOB or Cough, BREAST: No breast abnormalities or lumps GI: No Indigestion, Heartburn, Nausea, vomiting, Diarrhea, Constipation,Bloating or Bowel Changes; No Bloody Stools or melena : No Dysuria, Hematuria or Nocturia. No Urinary Incontinence or Vaginal Discharge,vaginal bleeding, or dysparuenia. NEURO: No CVA, Migraines, Seizure Hx, or Limb Weakness DERM: No Rash, Itching, Mole Changes or Cancer PSYCH: No Depression, Homicidal thoughts,suicidal thoughts, or anxiety MUSCULOSKELETAL: No Arthralgia, Arthritis HEME and LYMPH :No Lymphoma, Von Willebrand's, Hemophillia or Bleeding History PHYSICAL EXAM: Vitals: 06/13/24 1021 BP: 115/68 Pulse: 69 Weight: 280 lb (127 kg) Height: 5' 5 (1.651 m) Body mass index is 46.59 kg/m . [employer]: BREASTS: normal, no masses, tenderness or skin changes. Right breast with healed incision EXTERNAL GENITALIA: normal female structures VAGINA: atrophic, no lesions CERVIX: normal cervix UTERUS: surgically absent ADNEXA: normal, non tender no masses. URETHRA: normal. nontender BLADDER: non tender. PELVIC SUPPORT DEFECTS: Normal support of vagina and bladder ANUS/PERINEUM: no hemorrhoids, masses or warts noted. GENERAL EXAM CONSTITUTIONAL: Well developed, well nourished, well groomed. no acute distress NECK: no thyromegaly, supple. CARDIOVASCULAR: normal rate and rhythm, no edema LUNGS: Normal effort, normal lung sounds ABDOMEN:soft, non-tender, non-distended, no hepatospleenomegaly NEUROLOGICAL: no gross motor or sensory deficits noted. . LYMPH NODES: no lymphadenapathy axillary or inguinal. MUSCULOSKELETAL: normal gait, no cyanosis. PSYCHIATRIC Normal mood and affect, A&O x3. ASSESMENT/PLAN: Brissa was seen today for gynecologic exam. Diagnoses and all orders for this visit: Encounter for gynecological examination without abnormal finding (Primary) - Pap Smear Michael tumor of ovary, right - CA 125; Future - CA 125 - US pelvis transvaginal; Future Will continue with yearly US. Discussed prior recommendations for imaging of pancreas- she will d/w her PCP Follow up in about 1 year (around 06/13/2025) for Annual. Routine health maintenance per patients PCP. documented in this [facility]08-20-2024 History of Present illness Narrative* Sudhir Keila, DO - 06/12/2024 8:40 AM EDT Images from the original note were not included. [facility] [address] [facility] [id number] Visit Type: New To Provider PCP: Sudhir Pedraza DO Reason for Visit: Follow-up (Weight, and BP./Sees GI, endo, hematology, pulmonology, [employer]/Would liketo discuss bloodwork. Seeing pulmonology next week, new inhaler from him. She uses bipap but doesn't think it helps. (Mother had copd, notices she is having a lot of same symptoms)) Assessment and Plan Brissa was seen today for follow-up. Diagnoses and all orders for this visit: Class 3 severe obesity due to excess calories without serious comorbidity with body mass index (BMI) of 45.0 to 49.9 in adult (HCC) Fatty liver Prediabetes - metFORMIN XR (Glucophage-XR) 500 MG 24 hr tablet; Take 1 tablet (500 mg) by mouth daily (with breakfast). Do not crush, chew, or split. We discussed a more holistic approach to her health with goal to work on weight mgmt as is contributes to multiple secondary diagnoses. Would like to avoid bariatic surgery at this time. But willing to consider medication mgmt. She has previously looked into GLP-1 agonists and phentermine with guidance from her GI provider, but noted concern about SE profile of the GLP1 agonists. She has also received conflicting information from prior provider regarding metformin use, so has been hesitant to proceed with it's use. I explained the most inclusive med with the best data to support it's use would be a GLP1 agonist but concern is insurance coverage and SE profile. Next best for most inclusive benefit is to try metformin for insulin resistance and perhaps some weight benefit. Discussed phentermine and how it's best for appetite suppression, which isn't entirely her issue with weight mgmt (per her review). Follow up in about 4 weeks (around 07/10/2024) for weight management. On this date, 06/12/2024 I have spent 41 minutes reviewing previous notes, test results and [id number] with the patient discussing the diagnosis, pathophysiology, and management, as well as documenting on the day of the visit. There are no Patient Instructions on file for this visit. 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 This clinic is currently back open, but located in [place] and thus, not ideal location. Needs closer follow-ups to keep herself honest. Review of Systems Pertinent ROS noted in the HPI and all other systems are negative. Current Outpatient Medications Medication Sig Dispense Refill cholecalciferol (Vitamin D-3) 125 MCG (5000 UT) capsule Take 5,000 Units by mouth in the morning. fluticasone (Flovent) 110 MCG/ACT inhaler Inhale 1 puff in the morning and 1 puff in the evening. Rinse mouth with water after use to reduce aftertaste and incidence of candidiasis. Do not swallow.. hydroCHLOROthiazide (Microzide) 12.5 MG capsule Take 12.5 mg by mouth daily. loratadine (Claritin) 10 MG tablet Take 10 mg by mouth daily. Seasonal Multiple Vitamin (multivitamin) tablet Take 1 tablet by mouth daily. NON FORMULARY daily. SUPER DIGESTIVE ENZYME Omeprazole 20 MG tablet delayed-release Take 20 mg by mouth daily. Tirosint 112 MCG capsule Take 112 mcg by mouth every morning (before breakfast). Triamcinolone Acetonide (NASACORT AQ NA) Administer 2 sprays into each nostril Nightly. ursodiol (Actigall) 300 MG capsule Take 300 mg by mouth 2 times daily. metFORMIN XR (Glucophage-XR) 500 MG 24 hr tablet Take 1 tablet (500 mg) by mouth daily (with breakfast). Do not crush, chew, or split. 30 tablet 11 sucralfate (Carafate) 1 GM/10ML suspension 10 ML ORALLY THREE TIMES A DAY FOR 30 DAYS No current facility-administered medications for this visit. 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 01/30/2024 Nava's esophagus 07/15/2020 Fatty liver 07/15/2020 Objective BP (!) 131/92 (BP Location: Left arm, Patient Position: Sitting, BP Cuff Size: Large adult) Pulse85 Temp 36.7 C (98 F) (Oral) Ht 5' 5.75 (1.67 m) Wt 279 lb 12.8 oz (127 kg) SpO2 99% BMI45.50 kg/m Physical Exam GEN: awake, alert, non-diaphoretic, no psychomotor agitation, no acute distress HEENT :Head: atraumatic, normocephalic, no rashes noted, no lesions noted Cardiopulmonary: no increased respiratory effort, speaking in clear sentences, I:E ratio WNL Neuro: cranial nerves grossly normal, speech normal rate and rhythm, orientation arrived to appointment on time with no prompting, moved both upper extremities equally Pysch: appearance, behavior, and attitude- well groomed, pleasant, cooperative There are no discontinued medications. Sudhir Pedraza DO 06/12/2024 6:52 PM documented in this [facility]08-20-2024 History of Present illness Narrative* Sudhir Pedraza DO - 06/12/2024 8:40 AM EDT Images from the original note were not included. [facility] [address] [facility] [id number] Visit Type: New To Provider PCP: Sudhir Pedraza DO Reason for Visit: Follow-up (Weight, and BP./Sees GI, endo, hematology, pulmonology, [employer]/Would liketo discuss bloodwork. Seeing pulmonology next week, new inhaler from him. She uses bipap but doesn't think it helps. (Mother had copd, notices she is having a lot of same symptoms)) Assessment and Plan Brissa was seen today for follow-up. Diagnoses and all orders for this visit: Class 3 severe obesity due to excess calories without serious comorbidity with body mass index (BMI) of 45.0 to 49.9 in adult (HCC) Fatty liver Prediabetes - metFORMIN XR (Glucophage-XR) 500 MG 24 hr tablet; Take 1 tablet (500 mg) by mouth daily (with breakfast). Do not crush, chew, or split. We discussed a more holistic approach to her health with goal to work on weight mgmt as is contributes to multiple secondary diagnoses. Would like to avoid bariatic surgery at this time. But willing to consider medication mgmt. She has previously looked into GLP-1 agonists and phentermine with guidance from her GI provider, but noted concern about SE profile of the GLP1 agonists. She has also received conflicting information from prior provider regarding metformin use, so has been hesitant to proceed with it's use. I explained the most inclusive med with the best data to support it's use would be a GLP1 agonist but concern is insurance coverage and SE profile. Next best for most inclusive benefit is to try metformin for insulin resistance and perhaps some weight benefit. Discussed phentermine and how it's best for appetite suppression, which isn't entirely her issue with weight mgmt (per her review). Follow up in about 4 weeks (around 07/10/2024) for weight management. On this date, 06/12/2024 I have spent 41 minutes reviewing previous notes, test results and [id number] with the patient discussing the diagnosis, pathophysiology, and management, as well as documenting on the day of the visit. There are no Patient Instructions on file for this visit. 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 This clinic is currently back open, but located in [place] and thus, not ideal location. Needs closer follow-ups to keep herself honest. Review of Systems Pertinent ROS noted in the HPI and all other systems are negative. Current Outpatient Medications Medication Sig Dispense Refill cholecalciferol (Vitamin D-3) 125 MCG (5000 UT) capsule Take 5,000 Units by mouth in the morning. fluticasone (Flovent) 110 MCG/ACT inhaler Inhale 1 puff in the morning and 1 puff in the evening. Rinse mouth with water after use to reduce aftertaste and incidence of candidiasis. Do not swallow.. hydroCHLOROthiazide (Microzide) 12.5 MG capsule Take 12.5 mg by mouth daily. loratadine (Claritin) 10 MG tablet Take 10 mg by mouth daily. Seasonal Multiple Vitamin (multivitamin) tablet Take 1 tablet by mouth daily. NON FORMULARY daily. SUPER DIGESTIVE ENZYME Omeprazole 20 MG tablet delayed-release Take 20 mg by mouth daily. Tirosint 112 MCG capsule Take 112 mcg by mouth every morning (before breakfast). Triamcinolone Acetonide (NASACORT AQ NA) Administer 2 sprays into each nostril Nightly. ursodiol (Actigall) 300 MG capsule Take 300 mg by mouth 2 times daily. metFORMIN XR (Glucophage-XR) 500 MG 24 hr tablet Take 1 tablet (500 mg) by mouth daily (with breakfast). Do not crush, chew, or split. 30 tablet 11 sucralfate (Carafate) 1 GM/10ML suspension 10 ML ORALLY THREE TIMES A DAY FOR 30 DAYS No current facility-administered medications for this visit. 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 01/30/2024 Nava's esophagus 07/15/2020 Fatty liver 07/15/2020 Objective BP (!) 131/92 (BP Location: Left arm, Patient Position: Sitting, BP Cuff Size: Large adult) Pulse85 Temp 36.7 C (98 F) (Oral) Ht 5' 5.75 (1.67 m) Wt 279 lb 12.8 oz (127 kg) SpO2 99% BMI45.50 kg/m Physical Exam GEN: awake, alert, non-diaphoretic, no psychomotor agitation, no acute distress HEENT :Head: atraumatic, normocephalic, no rashes noted, no lesions noted Cardiopulmonary: no increased respiratory effort, speaking in clear sentences, I:E ratio WNL Neuro: cranial nerves grossly normal, speech normal rate and rhythm, orientation arrived to appointment on time with no prompting, moved both upper extremities equally Pysch: appearance, behavior, and attitude- well groomed, pleasant, cooperative There are no discontinued medications. Sudhir Pedraza DO 06/12/2024 6:52 PM documented in this [place] [id number] Miscellaneous Notes* Addendum Note - Sudhir Pedraza DO - 06/12/2024 8:40 AM EDTAddended by: SUDHIR PEDRAZA on: 06/13/2024 05:01 PM Modules accepted: Level of Service documented in this [place] [id number] Note* Addendum Note - Sudhir Pedraza DO - 06/12/2024 8:40 AM EDTAddended by: SUDHIR PEDRAZA on: 06/13/2024 05:01 PM Modules accepted: [id number] Miscellaneous Notes* Result Encounter Note - Vonnie Garza MD - 05/17/2024 7:00 AM EDT Imaging reviewed - please notify patient of benign results. If she wishes to pursue high risk followup, she should continue visits in the breast center every six months and may schedule this with myself or FORGING MACHINE OPERATOR at her convenience. Thank you! documented in this [facility]07-25-2024 Progress note* Result Encounter Note - Vonnie Garza MD - 05/17/2024 7:00 AM EDT Imaging reviewed - please notify patient of benign results. If she wishes to pursue high risk followup, she should continue visits in the breast center every six months and may schedule this with myself or FORGING MACHINE OPERATOR at her convenience. Thank you! [facility] [employer] Work Phone: [phone] 619-383207-24-2024 History of Present illness Narrative* Scarlet Delaney Love, SUSTAINABILITY COORDINATOR - REFINERY PROCESS ENGINEER - 05/16/2024 9:00 AM EDT Images from the original note were not included. [facility] [address] [facility] [address] Dept: [phone] Dept Visit Date: 05/16/24 HPI: Brissa Jeffery is a 58 y.o. female who presents today for: Chief Complaint Patient presents with New Patient New patient here to establish care. Annual Exam CPE. Pt states she has been having a shoulder pain on right side, not sure if its related to sleeping, has been there for awhile. HPI New patient here with multiple chronic conditions and sees many specialists. Fairly up to date on preventative screenings. Had cologuard last month, negative. Seeing Dr. Garza for breast screenings. Had adenocarcinoma of right breast removed at . Follow up mammogram/us okay. Has MRI scheduled for tomorrow. Hysterectomy. GI: Sees for GERD, Nava's, HUGGINS. On ursodiol, omeprazole, prn carafate with good symptom relief. Hematology: Low platelets, unknown etiology. Essentially have been monitoring. Endo: Hypothyroidism on tirosint 112 mcg daily. Unsure last labs. Feels ok. Pulmonology: Has LINDSAY. Was on bipap, co2 was high. Tried of fluticasone, felt worse, no longer taking. Looking to switch to bipap. Has sleep study. Did see cardiology. Had Echo- family hx heart disease. Regurgitation? Left ventricle enlargement? This is per patient report, I do not have records to review. Does report some dyspnea with exertion. Sleeps in chair upright 2/2 to the gerd, not breathing. No palpitations, chest pain. On hydrochlorothiazide for hypertension Right posterior shoulder pain, localized at shoulder blade. Mobility and strength of the joint maintained. No numbness, or tingling. 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 Obesity: Would like to work on the weight loss. Did a very strict diet for a month which was successful but feels couldn't maintain that diet intermediate. Trying to work on increasing the activity given the sedentary job. Pizza for dinner last night, feels she gained 5 pounds. Has rx for phentermine from endocrinology, but didn't start. Considered glp-1. Looks like not on formulary, was offered compounded pharmacy, she is uncertain in this. 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 hydroCHLOROthiazide (Microzide) 12.5 MG capsule Take 12.5 mg by mouth daily. loratadine (Claritin) 10 MG tablet Take 10 mg by mouth daily. Seasonal Multiple Vitamin (multivitamin) tablet Take 1 tablet by mouth daily. NON FORMULARY daily. SUPER DIGESTIVE ENZYME Omeprazole 20 MG tablet delayed-release Take 20 mg by mouth daily. Tirosint 112 MCG capsule Take 112 mcg by mouth every morning (before breakfast). Triamcinolone Acetonide (NASACORT AQ NA) Administer 2 sprays into each nostril Nightly. ursodiol (Actigall) 300 MG capsule Take 300 mg by mouth 2 times daily. sucralfate (Carafate) 1 GM/10ML suspension 10 ML ORALLY THREE TIMES A DAY FOR 30 DAYS No current facility-administered medications for this visit. Allergies Allergen Reactions Esomeprazole Other Throat closing and dizzy. Sulfamethoxazole-Trimethoprim Other and Unknown [place] strange on it spacey Light-headed Seasonal Past Medical History: Diagnosis Date Adenocarcinoma (HCC) 02/17/2024 skin of right breast Allergic rhinitis BRCA1 negative BRCA2 negative Disease of thyroid gland Fibrocystic breast GERD (gastroesophageal reflux disease) 09/13 Hypertension Liver disease 09/13 Obesity Sleep apnea 03/2024 Past Surgical History: Procedure Laterality Date APPENDECTOMY BREAST BIOPSY Right 02/17/2024 Adenocarcinoma BREAST LUMPECTOMY Right 02/17/2024 2nd re-excision on 03/29/2024 CHOLECYSTECTOMY HERNIA REPAIR HYSTERECTOMY age 41 OOPHORECTOMY Right Family History Problem Relation Name Age of Onset Breast cancer Mother's Sister Ximena 55 Breast cancer Mother's Sister Brandy 55 Lung cancer Mother's Brother 55 Breast cancer Paternal Grandmother Alia 55 Stomach cancer Paternal Grandmother Alia Social History Tobacco Use Smoking status: Former Types: Cigarettes Smokeless tobacco: Never Substance Use Topics Alcohol use: Never Subjective: Review of Systems Constitutional: Positive for fatigue. Negative for chills and unexpected weight change. Eyes: Negative for visual disturbance. Respiratory: Positive for shortness of breath. Negative for cough and wheezing. Cardiovascular: Negative for chest pain and palpitations. Gastrointestinal: Negative for abdominal pain, constipation, diarrhea and nausea. Genitourinary: Negative for difficulty urinating. Musculoskeletal: Positive for arthralgias. Negative for back pain, gait problem and joint swelling. Skin: Negative for rash. dry Neurological: Negative for dizziness, weakness and headaches. Psychiatric/Behavioral: Positive for sleep disturbance. Negative for dysphoric mood. The patient isnot nervous/anxious. Objective: BP 132/86 (BP Location: Right arm, Patient Position: Sitting, BP Cuff Size: Large adult) Pulse 79 Temp 36.7 C (98.1 F) (Temporal) Ht 5' 5.75 (1.67 m) Wt 279 lb (127 kg) SpO2 99% BMI 45.37 kg/m Physical Exam Vitals and nursing note reviewed. Constitutional: General: She is not in acute distress. Appearance: Normal appearance. She is obese. She is not ill-appearing or toxic-appearing. HENT: Head: Normocephalic and atraumatic. Right Ear: Tympanic membrane, ear canal and external ear normal. Left Ear: Tympanic membrane, ear canal and external ear normal. Mouth/Throat: Mouth: Mucous membranes are moist. Pharynx: Oropharynx is clear. Eyes: Conjunctiva/sclera: Conjunctivae normal. Pupils: Pupils are equal, round, and reactive to light. Cardiovascular: Rate and Rhythm: Normal rate and regular rhythm. Pulses: Radial pulses are 2+ on the right side and 2+ on the left side. Posterior tibial pulses are 2+ on the right side and 2+ on the left side. Heart sounds: Normal heart sounds. Pulmonary: Effort: Pulmonary effort is normal. Breath sounds: Normal breath sounds. No wheezing or rhonchi. Abdominal: General: Bowel sounds are normal. There is no distension. Palpations: Abdomen is soft. Tenderness: There is no abdominal tenderness. There is no guarding. Musculoskeletal: General: Normal range of motion. Right shoulder: Normal. Left shoulder: Normal. Arms: Cervical back: Normal range of motion. Right lower le+ Edema present. Left lower le+ Edema present. Lymphadenopathy: Cervical: No cervical adenopathy. Skin: General: Skin is warm and dry. Capillary Refill: Capillary refill takes less than 2 seconds. Findings: No rash. Neurological: Mental Status: She is alert and oriented to person, place, and time. Cranial Nerves: No cranial nerve deficit. Motor: No weakness. Gait: Gait normal. Psychiatric: Mood and Affect: Mood normal. Assessment: Diagnosis Plan 1. Screening for lipid disorders Lipid panel Lipid panel 2. Class 3 severe obesity due to excess calories without serious comorbidity with body mass index (BMI) of 45.0 to 49.9 in adult (HCC) Insulin, random High sensitivity CRP Hemoglobin A1c Cortisol Insulin, random High sensitivity CRP Hemoglobin A1c Cortisol 3. Acquired hypothyroidism TSH TSH 4. Essential hypertension Comprehensive metabolic panel Comprehensive metabolic panel 5. Encounter for medical examination to establish care 6. Thrombocytopenia (HCC) CBC auto differential CBC auto differential 7. Obstructive sleep apnea syndrome 8. Primary hypertension 9. Nonalcoholic steatohepatitis (HUGGINS) 10. Gastroesophageal reflux disease without esophagitis Plan: Brissa was seen today for new patient and annual exam. Diagnoses and all orders for this visit: Screening for lipid disorders (Primary) - Lipid panel; Future - Lipid panel Class 3 severe obesity due to excess calories without serious comorbidity with body mass index (BMI) of 45.0 to 49.9 in adult (HCC) Chronic, difficulty losing and maintaining weight loss. Checking some labs, previously not been of concern per patient. Could be more consistent on optimizing the diet, working on increasing the activity. Has the rx for phentermine from specialist. We discussed this medication today; reasonable option although uncertain long-term benefits. - Insulin, random; Future - High sensitivity CRP; Future - Hemoglobin A1c; Future - Cortisol; Future - Insulin, random - High sensitivity CRP - Hemoglobin A1c - Cortisol Acquired hypothyroidism Chronic, unknown. Will check the labs and should follow up with endocrinology as scheduled. - TSH; Future - TSH Essential hypertension Chronic, controlled on the hydrochlorothiazide. Check renal function. No med changes. - Comprehensive metabolic panel; Future - Comprehensive metabolic panel Encounter for medical examination to establish care Thrombocytopenia (HCC) Chronic, stable per patient report. Ordering labs and should follow up with the analytical lab analyst. - CBC auto differential; Future - CBC auto differential Obstructive sleep apnea syndrome Chronic, unstable. Continue current treatment and follow up with the upholstery department supervisor and testing ordered. Nonalcoholic steatohepatitis (HUGGINS) Chronic, improved per patient after adding the urodiosol. Has had the fibroscan. Follow up with GI.Dietary modification and weight loss should help this as well. Gastroesophageal reflux disease without esophagitis Chronic, controlled. Continue same meds and follow up with GI. Follow up in about 4 months (around 09/16/2024) for chronic conditions Dr. Pedraza. Orders Placed This Encounter Procedures Lipid panel Comprehensive metabolic panel Insulin, random CBC auto differential High sensitivity CRP TSH Hemoglobin A1c Cortisol Goals None NICOLASA Yadav 05/16/2024 11:40 AM documented in this [facility]07-24-2024 History of Present illness Narrative* HARRIET Collazo CNP - 05/16/2024 9:00 AM EDT Images from the original note were not included. [facility] [address] [facility] [address] Dept: [phone] Dept Visit Date: 05/16/24 HPI: Brissa Jeffery is a 58 y.o. female who presents today for: Chief Complaint Patient presents with New Patient New patient here to establish care. Annual Exam CPE. Pt states she has been having a shoulder pain on right side, not sure if its related to sleeping, has been there for awhile. HPI New patient here with multiple chronic conditions and sees many specialists. Fairly up to date on preventative screenings. Had cologuard last month, negative. Seeing Dr. Garza for breast screenings. Had adenocarcinoma of right breast removed at . Follow up mammogram/us okay. Has MRI scheduled for tomorrow. Hysterectomy. GI: Sees for GERD, Nava's, HUGGINS. On ursodiol, omeprazole, prn carafate with good symptom relief. Hematology: Low platelets, unknown etiology. Essentially have been monitoring. Endo: Hypothyroidism on tirosint 112 mcg daily. Unsure last labs. Feels ok. Pulmonology: Has LINDSAY. Was on bipap, co2 was high. Tried of fluticasone, felt worse, no longer taking. Looking to switch to bipap. Has sleep study. Did see cardiology. Had Echo- family hx heart disease. Regurgitation? Left ventricle enlargement? This is per patient report, I do not have records to review. Does report some dyspnea with exertion. Sleeps in chair upright 2/2 to the gerd, not breathing. No palpitations, chest pain. On hydrochlorothiazide for hypertension Right posterior shoulder pain, localized at shoulder blade. Mobility and strength of the joint maintained. No numbness, or tingling. 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 Obesity: Would like to work on the weight loss. Did a very strict diet for a month which was successful but feels couldn't maintain that diet assistant terminal manager. Trying to work on increasing the activity given the sedentary job. Pizza for dinner last night, feels she gained 5 pounds. Has rx for phentermine from endocrinology, but didn't start. Considered glp-1. Looks like not on formulary, was offered compounded pharmacy, she is uncertain in this. 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 hydroCHLOROthiazide (Microzide) 12.5 MG capsule Take 12.5 mg by mouth daily. loratadine (Claritin) 10 MG tablet Take 10 mg by mouth daily. Seasonal Multiple Vitamin (multivitamin) tablet Take 1 tablet by mouth daily. NON FORMULARY daily. SUPER DIGESTIVE ENZYME Omeprazole 20 MG tablet delayed-release Take 20 mg by mouth daily. Tirosint 112 MCG capsule Take 112 mcg by mouth every morning (before breakfast). Triamcinolone Acetonide (NASACORT AQ NA) Administer 2 sprays into each nostril Nightly. ursodiol (Actigall) 300 MG capsule Take 300 mg by mouth 2 times daily. sucralfate (Carafate) 1 GM/10ML suspension 10 ML ORALLY THREE TIMES A DAY FOR 30 DAYS No current facility-administered medications for this visit. Allergies Allergen Reactions Esomeprazole Other Throat closing and dizzy. Sulfamethoxazole-Trimethoprim Other and Unknown [place] strange on it spacey Light-headed Seasonal Past Medical History: Diagnosis Date Adenocarcinoma (HCC) 02/17/2024 skin of right breast Allergic rhinitis BRCA1 negative BRCA2 negative Disease of thyroid gland Fibrocystic breast GERD (gastroesophageal reflux disease) 09/13 Hypertension Liver disease 09/13 Obesity Sleep apnea 03/2024 Past Surgical History: Procedure Laterality Date APPENDECTOMY BREAST BIOPSY Right 02/17/2024 Adenocarcinoma BREAST LUMPECTOMY Right 02/17/2024 2nd re-excision on 03/29/2024 CHOLECYSTECTOMY HERNIA REPAIR HYSTERECTOMY age 41 OOPHORECTOMY Right Family History Problem Relation Name Age of Onset Breast cancer Mother's Sister Ximena 55 Breast cancer Mother's Sister Brandy 55 Lung cancer Mother's Brother 55 Breast cancer Paternal Grandmother Alia 55 Stomach cancer Paternal Grandmother Alia Social History Tobacco Use Smoking status: Former Types: Cigarettes Smokeless tobacco: Never Substance Use Topics Alcohol use: Never Subjective: Review of Systems Constitutional: Positive for fatigue. Negative for chills and unexpected weight change. Eyes: Negative for visual disturbance. Respiratory: Positive for shortness of breath. Negative for cough and wheezing. Cardiovascular: Negative for chest pain and palpitations. Gastrointestinal: Negative for abdominal pain, constipation, diarrhea and nausea. Genitourinary: Negative for difficulty urinating. Musculoskeletal: Positive for arthralgias. Negative for back pain, gait problem and joint swelling. Skin: Negative for rash. dry Neurological: Negative for dizziness, weakness and headaches. Psychiatric/Behavioral: Positive for sleep disturbance. Negative for dysphoric mood. The patient isnot nervous/anxious. Objective: BP 132/86 (BP Location: Right arm, Patient Position: Sitting, BP Cuff Size: Large adult) Pulse 79 Temp 36.7 C (98.1 F) (Temporal) Ht 5' 5.75 (1.67 m) Wt 279 lb (127 kg) SpO2 99% BMI 45.37 kg/m Physical Exam Vitals and nursing note reviewed. Constitutional: General: She is not in acute distress. Appearance: Normal appearance. She is obese. She is not ill-appearing or toxic-appearing. HENT: Head: Normocephalic and atraumatic. Right Ear: Tympanic membrane, ear canal and external ear normal. Left Ear: Tympanic membrane, ear canal and external ear normal. Mouth/Throat: Mouth: Mucous membranes are moist. Pharynx: Oropharynx is clear. Eyes: Conjunctiva/sclera: Conjunctivae normal. Pupils: Pupils are equal, round, and reactive to light. Cardiovascular: Rate and Rhythm: Normal rate and regular rhythm. Pulses: Radial pulses are 2+ on the right side and 2+ on the left side. Posterior tibial pulses are 2+ on the right side and 2+ on the left side. Heart sounds: Normal heart sounds. Pulmonary: Effort: Pulmonary effort is normal. Breath sounds: Normal breath sounds. No wheezing or rhonchi. Abdominal: General: Bowel sounds are normal. There is no distension. Palpations: Abdomen is soft. Tenderness: There is no abdominal tenderness. There is no guarding. Musculoskeletal: General: Normal range of motion. Right shoulder: Normal. Left shoulder: Normal. Arms: Cervical back: Normal range of motion. Right lower le+ Edema present. Left lower le+ Edema present. Lymphadenopathy: Cervical: No cervical adenopathy. Skin: General: Skin is warm and dry. Capillary Refill: Capillary refill takes less than 2 seconds. Findings: No rash. Neurological: Mental Status: She is alert and oriented to person, place, and time. Cranial Nerves: No cranial nerve deficit. Motor: No weakness. Gait: Gait normal. Psychiatric: Mood and Affect: Mood normal. Assessment: Diagnosis Plan 1. Screening for lipid disorders Lipid panel Lipid panel 2. Class 3 severe obesity due to excess calories without serious comorbidity with body mass index (BMI) of 45.0 to 49.9 in adult (HCC) Insulin, random High sensitivity CRP Hemoglobin A1c Cortisol Insulin, random High sensitivity CRP Hemoglobin A1c Cortisol 3. Acquired hypothyroidism TSH TSH 4. Essential hypertension Comprehensive metabolic panel Comprehensive metabolic panel 5. Encounter for medical examination to establish care 6. Thrombocytopenia (HCC) CBC auto differential CBC auto differential 7. Obstructive sleep apnea syndrome 8. Primary hypertension 9. Nonalcoholic steatohepatitis (HUGGINS) 10. Gastroesophageal reflux disease without esophagitis Plan: Brissa was seen today for new patient and annual exam. Diagnoses and all orders for this visit: Screening for lipid disorders (Primary) - Lipid panel; Future - Lipid panel Class 3 severe obesity due to excess calories without serious comorbidity with body mass index (BMI) of 45.0 to 49.9 in adult (HCC) Chronic, difficulty losing and maintaining weight loss. Checking some labs, previously not been of concern per patient. Could be more consistent on optimizing the diet, working on increasing the activity. Has the rx for phentermine from specialist. We discussed this medication today; reasonable option although uncertain long-term benefits. - Insulin, random; Future - High sensitivity CRP; Future - Hemoglobin A1c; Future - Cortisol; Future - Insulin, random - High sensitivity CRP - Hemoglobin A1c - Cortisol Acquired hypothyroidism Chronic, unknown. Will check the labs and should follow up with endocrinology as scheduled. - TSH; Future - TSH Essential hypertension Chronic, controlled on the hydrochlorothiazide. Check renal function. No med changes. - Comprehensive metabolic panel; Future - Comprehensive metabolic panel Encounter for medical examination to establish care Thrombocytopenia (HCC) Chronic, stable per patient report. Ordering labs and should follow up with the analytical lab analyst. - CBC auto differential; Future - CBC auto differential Obstructive sleep apnea syndrome Chronic, unstable. Continue current treatment and follow up with the upholstery department supervisor and testing ordered. Nonalcoholic steatohepatitis (HUGGINS) Chronic, improved per patient after adding the urodiosol. Has had the fibroscan. Follow up with GI.Dietary modification and weight loss should help this as well. Gastroesophageal reflux disease without esophagitis Chronic, controlled. Continue same meds and follow up with GI. Follow up in about 4 months (around 09/16/2024) for chronic conditions Dr. Pedraza. Orders Placed This Encounter Procedures Lipid panel Comprehensive metabolic panel Insulin, random CBC auto differential High sensitivity CRP TSH Hemoglobin A1c Cortisol Goals None NICOLASA Yadav 05/16/2024 11:40 AM documented in this [facility]07-24-2024 Miscellaneous Notes* Addendum Note - HARRIET Collazo CNP - 05/16/2024 9:00 AM EDTAddended by: SCARLET LOVE on: 05/17/2024 11:19 AM Modules accepted: Level of Service documented in this [facility]07-24-2024 Note* Addendum Note - HARRIET Collazo CNP - 05/16/2024 9:00 AM EDTAddended by: SCARLET LOVE on: 05/17/2024 11:19 AM Modules accepted: Level of Service [facility] [id number] Miscellaneous Notes* Result Encounter Note - Vonnie Garza MD - 04/19/2024 8:00 AM EDT Imaging reviewed - please notify patient of benign results. Please also move up her MRI as well dueto the presence of the skin adenocarcinoma on the breast as a precaution to rule out any malignancyin the breast itself. Thank you. She should otherwise follow up with me in 6 months. documented in this [facility]06-27-2024 Progress note* Result Encounter Note - Vonnie Garza MD - 04/19/2024 8:00 AM EDT Imaging reviewed - please notify patient of benign results. Please also move up her MRI as well dueto the presence of the skin adenocarcinoma on the breast as a precaution to rule out any malignancyin the breast itself. Thank you. She should otherwise follow up with me in 6 months. [facility] [employer] Phone: [phone] 262-853706-25-2024 Telephone encounter Note* Telephone Encounter - Montse Dennis - 04/17/2024 4:08 PM EDT Imaging suggests to wait until after her appointment on the . In case a biopsy needs completed. Dr. Garza would need to ask if a tech if they would work through their lunchtime before imaging can schedule anything earlier for her MRI. [id number] Miscellaneous Notes* Telephone Encounter - Montse Dennis - 04/17/2024 4:08 PM EDT Imaging suggests to wait until after her appointment on the . In case a biopsy needs completed. Dr. Garza would need to ask if a tech if they would work through their lunchtime before imaging can schedule anything earlier for her MRI. * Telephone Encounter - Vonnie Garza MD - 04/17/2024 3:50 PM EDT Yes, please move her MRI up since she is having this related to cancer and it is being performed asa cancer rule-out so this should be within 1-2 weeks completed - thank you. * Telephone Encounter - Montse Dennis - 04/17/2024 2:19 PM EDT Patient called: Patient is having imaging this , April 19. She is wanting to know if the MRI will need to be moved up. She is scheduled in October for MRI. I let patient know we are currently booked out until October for MRI imaging. documented in this [facility]06-25-2024 Telephone encounter Note* Telephone Encounter - Vonnie Garza MD - 04/17/2024 3:50 PM EDT Yes, please move her MRI up since she is having this related to cancer and it is being performed asa cancer rule-out so this should be within 1-2 weeks completed - thank you. [employer] Phone: [phone]) 921-966806-25-2024 Telephone encounter Note* Telephone Encounter - Montse MceknnaAnju Dennis - 04/17/2024 2:19 PM EDT Patient called: Patient is having imaging this , April 19. She is wanting to know if the MRI will need to be moved up. She is scheduled in October for MRI. I let patient know we are currently booked out until October for MRI imaging. [employer][id number] Telephone encounter Note* Telephone Encounter - Ti Arnold - 04/13/2024 10:49 AM EDT Name of caller: Madhuri Relation to patient: patient Contact phone number: [phone] Appointment scheduled with: Dr. Mcwilliams Appointment date & time: 10/19/24 Reason for visit (are you having any symptoms) : Pt not satisfied with current PCP and is impressed[facility] experience so far. High BMI working on weight and monitor her BP Transportation issues/ concerns: no Special accommodations? ( wheel chair, etc) : no Current medications: see chart Any refills need: none Any chronic conditions the provider should be aware of: High BP, Is Nava's esophagus, GI issues,Michael's Tumor, and working with pulmonology and has a C-PAP [employer][id number] Miscellaneous Notes* Telephone Encounter - Ti Arnold - 04/13/2024 10:49 AM EDT Name of caller: Madhuri Relation to patient: patient Contact phone number: [phone] Appointment scheduled with: Dr. Mcwilliams Appointment date & time: 10/19/24 Reason for visit (are you having any symptoms) : Pt not satisfied with current PCP and is impressedwith [facility] experience so far. High BMI working on weight and monitor her BP Transportation issues/ concerns: no Special accommodations? ( wheel chair, etc) : no Current medications: see chart Any refills need: none Any chronic conditions the provider should be aware of: High BP, Is Nava's esophagus, GI issues,Michael's Tumor, and working with pulmonology and has a C-PAP documented in this [facility]06-20-2024 NoteHNO ID: [id number] Author: ANNALISE NIETO MD Service: ? Author Type: Physician Type: Progress Notes Filed: 04/12/2024 15:28 Note Text: The patient presents for requested ultrasound. Full report available in the Imaging tab in [employer]. Annalise Nieto [facility]06-20-2024 History of Present illness Narrative* Annalise Nieto MD - 04/12/2024 3:25 PM EDT The patient presents for requested ultrasound. Full report available in the Imaging tab in [employer]. Annalise Nieto MD documented in this [facility]06-20-2024 History of Present illness Narrative* Vonnie Garza MD - 04/12/2024 3:00 PM EDT Images from the original note were not included. [facility] Dr. Vonnie Garza M.D. Chief Complaint Patient presents with Cancer Treatment Planning Denies any pain today History of Present Illness: Brissa Jeffery is a 58 y.o. female who presents for evaluation of right breast skin lesion. She had noticed a right breast skin lesion intermittently throughout the past 2 years and brought it to the attention of her ent surgeon who performed an excision. This revealed adenocarcinoma and he then completed excision to negative margins. Recommended a follow-up with breast surgery for completion given the location of the skin cancer on the breast. The patient denies any palpable breast masses or nipple discharge. Patient is postmenopausal. She is a never smoker. Family history of breast cancer in a paternal grandmother at age 55, and a maternal aunt at age 55,and and another maternal aunt also at age 55. Also has a history of lung cancer in a maternal uncleat age 55 and stomach cancer in her paternal grandmother. No other complaints at this time. Imaging: no recent breast imaging for review Pathology: Case Report Surgical Pathology Report Case: [id number] Authorizing Provider: Elvin Cortez MD Collected: 03/12/2024 02:01 PM Ordering Location: [facility] Received: 03/12/2024 02:03 PM [facility] Pathologist: Reg Neumann MD Specimen: Slide(s), [employer] [place] SLIDES [address] [id number] FINAL DIAGNOSIS A. 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 Diagnosis Comment Many thanks for sending in consultation this specimen from the lateral breast of a 58-year-old female. Clinically, the differential diagnosis included a neoplasm of uncertain behavior, dermatofibroma, or cyst. Histologic sections reveal a deep dermal proliferation of variably sized cribriform nodules and scattered ducts with amorphous basophilic frothy secretions and occasional eosinophilic secretions embedded in a desmoplastic stroma. Cytologically, the lesional cells demonstrate somewhat uniform enlarged ovoid nuclei, vesicular chromatin, basophilic nucleoli, and small amounts of eosinophilic cytoplasm. Enclosed stains performed at the outside institution are reviewed at the [facility] with appropriate controls. The ductal cells are positive for CK7, pankeratin, and CD117 (weak). The SOX10 stain highlights a subset of the ductal cells and peripheral myoepithelial cells. The SMMHC and p63 stains are negative negative for myoepithelial cells. The lesional cells are negative for CK20, estrogen receptor, progesterone receptor, GATA3, and Jemison-1. In order to further evaluate the lesion, additional staining is performed at the [facility] with appropriate controls on the provided slides. The lesional cells are positive for S100 and negative for driscoll TRK. The next generation sequencing studies were negative for effusions associated with head and neck neoplasms (see separate report). This is a very challenging case. 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 This tumor may show immunoreactivity for S100 protein, but is typically negative for myopathy Toro marker such as p63 and SMMHC. I am unable to find in the literature where this tumor has been studied forexpression of SOX10. Reexcision with negative margins and continued clinical follow-up are recommended. This case was also reviewed by Dr. Hope of the breast pathology service who agrees that the that this is unlikely to be a breast primary carcinoma. Clinical correlation remains essential. Thank you for sending this case in consultation. Please call the Dermatopathology Consultation Service at [phone] with questions or if additional follow-up information becomes available regarding this patient. This case was reviewed in conjunction with the Dermatopathology Fellow, Dr. Keys. Laboratory Developed Test (LDT) Disclaimer: Performance characteristics of immunohistochemical, immunofluorescent and chromogenic in-situ hybridization tests have been determined by the performing laboratory within [facility] Pathology and Laboratory Medicine Department ([facility], [facility], [facility], [facility],or [facility]) in a manner consistent with CLIA requirements. One or more of these tests have not been cleared or approved by the FDA. [facility] is regulated under CLIA as qualified to perform high-complexity testing. These tests are used for clinical purposes. They should not be regarded as invest igational or for research. Positive and negative controls stain appropriately. Clinical History CONSULT REQUESTED Performing Lab Diagnostic interpretation performed at [facility], [address] [place] [address] CLIA# [id number] Foreclosure Home Inspector: Vipin Reed M.D. Resulting Agency [facility] Review of Systems: Review of Systems Constitutional: Negative for appetite change, chills, diaphoresis, fatigue and fever. HENT: Negative for congestion and sore throat. Eyes: Negative for photophobia and visual disturbance. Respiratory: Negative for cough, chest tightness and shortness of breath. Cardiovascular: Negative for chest pain and palpitations. Gastrointestinal: Negative for abdominal pain, diarrhea, nausea and vomiting. Endocrine: Negative for cold intolerance. Genitourinary: Negative for vaginal bleeding, vaginal discharge and vaginal pain. Musculoskeletal: Negative for arthralgias, back pain and joint swelling. Skin: Negative for color change, pallor and rash. Allergic/Immunologic: Negative for immunocompromised state. Neurological: Negative for dizziness, weakness, numbness and headaches. Psychiatric/Behavioral: Negative for dysphoric mood. The patient is not nervous/anxious. Patient History: Past Medical History: Diagnosis Date Sleep apnea 03/2024 Past Surgical History: Procedure Laterality Date BREAST LUMPECTOMY Right 02/17/2024 2nd re-excision on 03/29/2024 Family History Problem Relation Name Age of Onset Breast cancer Mother's Sister 55 Breast cancer Mother's Sister 55 Lung cancer Mother's Brother 55 Breast cancer Paternal Grandmother 55 Stomach cancer Paternal Grandmother Genetics The patient's medical history, reproductive history, breast history and family history have been reviewed. Using [employer], the family genogram has been generated and reviewed. A complete risk assessment has been performed using validated statistical models. The lifetime risk of breast cancer estimated by the Tyrer Cuzick v8 model is 26.78%. The estimated risk of a BRCA 1/2 mutation predicted by BRCAPRO is 0.77%. The estimated risk of a mutation in an HNPCC related gene is 0.1%. The patient does meet NCCN criteria for genetic testing for hereditary cancer. The patient accepted genetic testing? Yes Her previous multigene genetic testing in 2019 was negative for deleterious mutation. Will requests results from her obgyn Allergies Allergen Reactions Esomeprazole Other Throat closing and dizzy. Sulfamethoxazole-Trimethoprim Other and Unknown [place] strange on it spacey Light-headed Current Outpatient Medications on File Prior to Visit Medication Sig Dispense Refill Fluticasone Propionate, Inhal, (Fluticasone Propionate Diskus) 100 MCG/ACT aerosol powder hydroCHLOROthiazide (Microzide) 12.5 MG capsule sucralfate (Carafate) 1 GM/10ML suspension 10 ML ORALLY THREE TIMES A DAY FOR 30 DAYS Tirosint 100 MCG capsule TAKE ONE CAPSULE BY MOUTH FIRST THING IN THE MORNING. AVOID OTHER SUPPLEMENTS FOR 1 HOUR Triamcinolone Acetonide (NASACORT AQ NA) ursodiol (Actigall) 300 MG capsule No current facility-administered medications on file prior to visit. Physical Exam: BP (!) 150/85 (BP Location: Left arm, Patient Position: Sitting, BP Cuff Size: Large adult) Pulse88 Temp 36.4 C (97.5 F) (Temporal) Ht 5' 6.5 (1.689 m) Wt 272 lb (123 kg) BMI 43.24 kg/m Physical Exam Constitutional: General: She is not in acute distress. Appearance: Normal appearance. She is not ill-appearing, toxic-appearing or diaphoretic. HENT: Head: Normocephalic and atraumatic. Nose: Nose normal. Mouth/Throat: Mouth: Mucous membranes are moist. Pharynx: Oropharynx is clear. Eyes: General: Vision grossly intact. Conjunctiva/sclera: Conjunctivae normal. Cardiovascular: Rate and Rhythm: Normal rate and regular rhythm. Pulmonary: Effort: Pulmonary effort is normal. No respiratory distress. Breath sounds: Normal breath sounds. No wheezing or rales. Chest: Breasts: Right: Skin change (well healed excision site cdi with mild skin irritation at site of previous adhesive) present. No swelling, bleeding, inverted nipple, mass, nipple discharge or tenderness. Left: Normal. No swelling, bleeding, inverted nipple, mass, nipple discharge, skin change or tenderness. Musculoskeletal: General: No swelling or deformity. Normal range of motion. Cervical back: Normal range of motion and neck supple. Lymphadenopathy: Cervical: No cervical adenopathy. Right cervical: No superficial, deep or posterior cervical adenopathy. Left cervical: No superficial, deep or posterior cervical adenopathy. Upper Body: Right upper body: No supraclavicular, axillary or pectoral adenopathy. Left upper body: No supraclavicular, axillary or pectoral adenopathy. Skin: General: Skin is warm and dry. Neurological: General: No focal deficit present. Mental Status: She is alert and oriented to person, place, and time. Mental status is at baseline. Psychiatric: Mood and Affect: Mood normal. Behavior: Behavior normal. Thought Content: Thought content normal. Judgment: Judgment normal. Assessment & Plan: Cancer Staging No matching staging information was found for the patient. 1. At high risk for breast cancer - Bilateral breast MR with and without contrast 2. Breast skin changes - Bilateral breast MR with and without contrast 3. Occasionally has difficulty accessing primary care provider - [facility] 4. Family history of breast cancer 5. Skin cancer of anterior chest Patient is a 58-year-old female with right chest skin cancer. She is also at high estimated lifetime risk of breast cancer based upon her family history and therefore we are pursuing completion workup with diagnostic mammogram and MRI to rule out any underlying breast malignancy as well. Today, we reviewed the current NCCN guidelines for high risk (>20% lifetime risk of breast cancer) screening, which recommend annual mammogram, annual MRI, monthly self-breast awareness, twice yearly clinical breast exam, consideration of genetic testing, and consideration of risk-reducing medication. Follow-up in 6 months for high risk exam.Patient demonstrates understanding of and agreement with the above plan of care. All questions have been answered to her satisfaction. Time attestation: I spent 30 minutes total on the day of the visit obtaining history, reviewing imaging and laboratory results, performing a physical exam and providing patient education and counseling. Vonnie Garza M.D. 04/12/2024 Culturally appropriate shared decision making was used to determine optimal course of workup and treatment for this patient. Please disregard any typographical errors. This note was partially dictated using voice recognitionsoftware. documented in this [facility]06-18-2024 Telephone encounter Note* Telephone Encounter - Montse Dennis - 04/10/2024 8:29 AM EDT Spoke with Omaira in imaging, [facility] has not sent imaging yet. Call and remind [facility] on 04/11/2024. [facility] [id number] Miscellaneous Notes* Telephone Encounter - Montse Dennis - 04/10/2024 8:29 AM EDT Spoke with Omaira in [facility], [facility] has not sent imaging yet. Call and remind [facility] on 04/11/2024. * Telephone Encounter - Carina Mao MA - 04/09/2024 3:40 PM EDT Pt is scheduled for 04/19/2024 for imaging. * Telephone Encounter - Carina Mao MA - 04/09/2024 2:45 PM EDT Spoke to pt. She is aware of imaging order. She states she will try to upload her outside records into a [employer] message. Spoke to breast imaging who states they need an US order to accompany the mammogram. Spoke to Tia who states she will talk to Radha for approval, as next available isn't until mid April 2024. * Telephone Encounter - Carina Moa MA - 04/09/2024 1:58 PM EDT Spoke to Omaira in film room. We have pt's last imaging from 07/2023. * Telephone Encounter - Carina Mao MA - 04/05/2024 4:08 PM EDT Called [facility] and they did not receive request. Refaxed request 04/05/2024 and received fax confirmation * Telephone Encounter - Carina Mao MA - 04/03/2024 12:21 PM EDT Images have not been received at this time. * Telephone Encounter - Carina Mao MA - 04/02/2024 3:48 PM EDT Since we do not have her outside images, I have to [place] today. I will follow up on this tomorrow. * Telephone Encounter - Vonnie Garza MD - 04/02/2024 11:05 AM EDT I have reviewed pathology report - this patient likely has a skin cancer and per the pathology report, it is very unlikely to be of breast origin, so I can perform a reexcision of the area of concernfor definitive pathology and I think as long as we have bilateral diagnostic imaging done within the past month or so, this will be reasonable. When was her last mammogram? * Telephone Encounter - Carina Mao MA - 04/02/2024 10:05 AM EDT Pt is scheduled for 04/12/[address] Garza. She states that her last two mammogram were done at [facility] and all previous imaging was done at [facility]. Path report is in care everywhere. I will fax request to pt's ent surgeon for records, and submit request for images from [facility] and [facility] Is there anything else I need to obtain prior to pt's appointment? [facility] done 06/28/2018 and is in Media * Telephone Encounter - Carina Mao MA - 04/02/2024 9:04 AM EDT Called and LVM for pt to schedule with Breast Center. 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 Cyst was removed by [facility] by Dr. Eren Swartz. Would like to align with a breast specialist as [facility] doesn't have specialty. Please call to schedule or advise. Office Name: [facility] documented in this encounterSOhio[facility] [id number] Telephone encounter Note* Telephone Encounter - Carina Mao MA - 04/09/2024 3:40 PM EDT Pt is scheduled for 04/19/2024 for imaging. [facility] [id number] Miscellaneous Notes* Telephone Encounter - Carina Mao MA - 04/09/2024 3:40 PM EDT Pt is scheduled for 04/19/2024 for imaging. * Telephone Encounter - Carina Mao MA - 04/09/2024 2:45 PM EDT Spoke to pt. She is aware of imaging order. She states she will try to upload her outside records into a [employer] message. Spoke to breast imaging who states they need an US order to accompany the mammogram. Spoke to Tia who states she will talk to Radha for approval, as next available isn't until mid April 2024. * Telephone Encounter - Carina Mao MA - 04/09/2024 1:58 PM EDT Spoke to Omaira in film room. We have pt's last imaging from 07/2023. * Telephone Encounter - Carina Mao MA - 04/05/2024 4:08 PM EDT Called [facility] and they did not receive request. Refaxed request 04/05/2024 and received fax confirmation * Telephone Encounter - Carina Mao MA - 04/03/2024 12:21 PM EDT Images have not been received at this time. * Telephone Encounter - Carina Mao MA - 04/02/2024 3:48 PM EDT Since we do not have her outside images, I have to [place] those today. I will follow up on this tomorrow. * Telephone Encounter - Vonnie Garza MD - 04/02/2024 11:05 AM EDT I have reviewed pathology report - this patient likely has a skin cancer and per the pathology report, it is very unlikely to be of breast origin, so I can perform a reexcision of the area of concernfor definitive pathology and I think as long as we have bilateral diagnostic imaging done within the past month or so, this will be reasonable. When was her last mammogram? * Telephone Encounter - Carina Mao MA - 04/02/2024 10:05 AM EDT Pt is scheduled for 04/12/[address] Garza. She states that her last two mammogram were done at [facility] and all previous imaging was done at [facility]. Path report is in care everywhere. I will fax request to pt's ent surgeon for records, and submit request for images from [place] and [facility] Is there anything else I need to obtain prior to pt's appointment? [facility] done 06/28/2018 and is in Media * Telephone Encounter - Carina Mao MA - 04/02/2024 9:04 AM EDT Called and LVM for pt to schedule with Breast Center. 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 Cyst was removed by [facility] by Dr. Eren Swartz. Would like to align with a breast specialist as [facility] doesn't have specialty. Please call to schedule or advise. Office Name: [facility] documented in this encounterSOhioHealth Dublin Methodist [id number] Telephone encounter Note* Telephone Encounter - Carina Mao MA - 04/09/2024 2:45 PM EDT Spoke to pt. She is aware of imaging order. She states she will try to upload her outside records into a [employer] message. Spoke to breast imaging who states they need an US order to accompany the mammogram. Spoke to Tia who states she will talk to Radha for approval, as next available isn't until mid April 2024. [facility] [id number] Telephone encounter Note* Telephone Encounter - Carina Mao MA - 04/09/2024 1:58 PM EDT Spoke to Omaira in film room. We have pt's last imaging from 07/2023. [facility] [id number] Telephone encounter Note* Telephone Encounter - Kathi Sloan RN - 04/09/2024 8:[address] US order again For some reason they can not see it to schedule Thanks [facility]06-17-2024 Miscellaneous Notes* Telephone Encounter - Kathi Sloan RN - 04/09/2024 8:[address] US order again For some reason they can not see it to schedule Thanks * Telephone Encounter - Antoinette Carter MD - 04/08/2024 5:39 PM EDT I placed the order on 04/04/24 * Telephone Encounter - Kathi Sloan RN - 04/06/2024 8:57 AM EDT Please review today's US and advise Thanks Pt asking for a call once next US order is placed Pt aware that Dr Carter is out of the office until Tuesday * Telephone Encounter - Veena Whatley - 04/06/2024 8:53 AM EDT Pt came to desk after her appt to schedule her next US. Order is not placed. Please review and advise [facility] Telephone encounter Note * Telephone Encounter - Antoinette Carter MD - 04/08/2024 5:39 PM EDT I placed the order on 04/04/24 [facility]06-14-2024 Telephone encounter Note* Telephone Encounter - Kathi Sloan RN - 04/06/2024 8:57 AM EDT Please review today's US and advise Thanks Pt asking for a call once next US order is placed Pt aware that Dr Carter is out of the office until Tuesday [facility]06-14-2024 Telephone encounter Note* Telephone Encounter - Veena Whatley - 04/06/2024 8:53 AM EDT Pt came to desk after her appt to schedule her next US. Order is not placed. Please review and advise [facility]06-13-2024 Telephone encounter Note* Telephone Encounter - Carina Mao MA - 04/05/2024 4:08 PM EDT Called [facility] and they did not receive request. Refaxed request 04/05/2024 and received fax confirmation [facility] [id number] Miscellaneous Notes* Telephone Encounter - Carina Mao MA - 04/05/2024 4:08 PM EDT Called [facility] and they did not receive request. Refaxed request 04/05/2024 and received fax confirmation * Telephone Encounter - Carina Mao MA - 04/03/2024 12:21 PM EDT Images have not been received at this time. * Telephone Encounter - Carina Mao MA - 04/02/2024 3:48 PM EDT Since we do not have her outside images, I have [place]. I will follow up on this tomorrow. * Telephone Encounter - Vonnie Garza MD - 04/02/2024 11:05 AM EDT I have reviewed pathology report - this patient likely has a skin cancer and per the pathology report, it is very unlikely to be of breast origin, so I can perform a reexcision of the area of concernfor definitive pathology and I think as long as we have bilateral diagnostic imaging done within the past month or so, this will be reasonable. When was her last mammogram? * Telephone Encounter - Carina Mao MA - 04/02/2024 10:05 AM EDT Pt is scheduled for 04/12/[address] Garza. She states that her last two mammogram were done at [facility] and all previous imaging was done at [facility]. Path report is in care everywhere. I will fax request to pt's ent surgeon for records, and submit request for images from [place] and [facility] Is there anything else I need to obtain prior to pt's appointment? [employer] done 06/28/2018 and is in Media * Telephone Encounter - Carina Mao MA - 04/02/2024 9:04 AM EDT Called and LVM for pt to schedule with [facility]. 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 Cyst was removed by [facility] by Dr. Eren Swartz. Would like to align with a breast specialist as [facility] doesn't have specialty. Please call to schedule or advise. Office Name: [facility] documented in this encounterSOhio[facility] Methodist [id number] Telephone encounter Note* Telephone Encounter - Carina Mao MA - 04/03/2024 12:21 PM EDT Images have not been received at this time. [facility] [id number] Miscellaneous Notes* Telephone Encounter - Carina Mao MA - 04/03/2024 12:21 PM EDT Images have not been received at this time. * Telephone Encounter - Carina Mao MA - 04/02/2024 3:48 PM EDT Since we do not have her outside images, I have to [place] those today. I will follow up on this tomorrow. * Telephone Encounter - Vonnie Garza MD - 04/02/2024 11:05 AM EDT I have reviewed pathology report - this patient likely has a skin cancer and per the pathology report, it is very unlikely to be of breast origin, so I can perform a reexcision of the area of concernfor definitive pathology and I think as long as we have bilateral diagnostic imaging done within the past month or so, this will be reasonable. When was her last mammogram? * Telephone Encounter - Carina Mao MA - 04/02/2024 10:05 AM EDT Pt is scheduled for 04/12/[address] Garza. She states that her last two mammogram were done at [facility] and all previous imaging was done at [facility]. Path report is in care everywhere. I will fax request to pt's ent surgeon for records, and submit request for images from [place] and [facility] Is there anything else I need to obtain prior to pt's appointment? [employer] done 06/28/2018 and is in Media * Telephone Encounter - Carina Mao MA - 04/02/2024 9:04 AM EDT Called and LVM for pt to schedule with Breast Center. 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 Cyst was removed by [facility] by Dr. Eren Swartz. Would like to align with a breast specialist as [facility] doesn't have specialty. Please call to schedule or advise. Office Name: [facility] documented in this [facility]06-10-2024 Telephone encounter Note* Telephone Encounter - Carina Mao MA - 04/02/2024 3:48 PM EDT Since we do not have her outside images, I have [place] those today. I will follow up on this tomorrow. [facility] [id number] Miscellaneous Notes* Telephone Encounter - Carina Mao MA - 04/02/2024 3:48 PM EDT Since we do not have her outside images, I have to [place] those today. I will follow up on this tomorrow. * Telephone Encounter - Vonnie Garza MD - 04/02/2024 11:05 AM EDT I have reviewed pathology report - this patient likely has a skin cancer and per the pathology report, it is very unlikely to be of breast origin, so I can perform a reexcision of the area of concernfor definitive pathology and I think as long as we have bilateral diagnostic imaging done within the past month or so, this will be reasonable. When was her last mammogram? * Telephone Encounter - Carina Mao MA - 04/02/2024 10:05 AM EDT Pt is scheduled for 04/12/[address] Garza. She states that her last two mammogram were done at [facility] and all previous imaging was done at [facility]. Path report is in care everywhere. I will fax request to pt's ent surgeon for records, and submit request for images from [place] and [facility] Is there anything else I need to obtain prior to pt's appointment? [employer] done 06/28/2018 and is in Media * Telephone Encounter - Carina Mao MA - 04/02/2024 9:04 AM EDT Called and LVM for pt to schedule with Breast Center. 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 Cyst was removed by [facility] by Dr. Eren Swartz. Would like to align with a breast specialist as [facility] doesn't have specialty. Please call to schedule or advise. Office Name: [facility] documented in this [facility] [id number] Telephone encounter Note* Telephone Encounter - Vonnie Garza MD - 04/02/2024 11:05 AM EDT I have reviewed pathology report - this patient likely has a skin cancer and per the pathology report, it is very unlikely to be of breast origin, so I can perform a reexcision of the area of concernfor definitive pathology and I think as long as we have bilateral diagnostic imaging done within the past month or so, this will be reasonable. When was her last mammogram? [employer] Phone: [phone] Telephone encounter Note* Telephone Encounter - Carina Mao MA - 04/02/2024 10:05 AM EDT Pt is scheduled for 04/12/[address] Garza. She states that her last two mammogram were done at [facility] and all previous imaging was done at [facility]. Path report is in care everywhere. I will fax request to pt's ent surgeon for records, and submit request for images from [facility] Is there anything else I need to obtain prior to pt's appointment? [employer] done 06/28/2018 and is in Media [facility] [id number] Telephone encounter Note* Telephone Encounter - Carina Mao MA - 04/02/2024 9:04 AM EDT Called and LVM for pt to schedule with Breast Center. She will need to bring all outside records and breast images [facility] [id number] Telephone encounter Note* Telephone Encounter - Eliu Faust - 03/30/2024 6:19 PM EDT Name of Caller: Brissa Noble Contact Reason for Appointment: Brissa Noble sent a web request for an appointment with the below stated: Recently diagnosed (yesterday) with an adenocarcinoma in the right side of my breast. Cyst was removed by [facility] by Dr. Eren Swartz. Would like to align with a breast specialist as [facility] doesn't have specialty. Please call to schedule or advise. Office Name: [facility] CenterIlwqqm56-09-2000 NoteHNO ID: [id number] Author: Antoinette Carter MD Service: ? Author Type: Physician Type: Progress Notes Filed: 05/10/2023 8:14 AM Note Text: Please see imaging tab for review. Antoinette Carter, [facility]07-15-2023 NoteHNO ID: [id number] Author: Antoinette Carter MD Service: ? 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 Nl genetic testing. Per Dr. Lewis, should have repeat annula u/s to assess for recurrence or mucin in pelvis. H/o jayden 2007, appendectomy/RSO 2018; hysteroscopic polypectomy 2003; supracervical hysterectomy 2006 u/s 05/04/22 showed The uterus is surgically absent s/p supracervical hysterectomy. Cervix has Nabothian cysts present and appears normal. The right ovary is surgically absent The left ovary is not visualized. 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 Nl genetic testing. Per Dr. Lewis, should have repeat annula u/s to assess for recurrence or mucin in pelvis. H/o jayden 2007, appendectomy/RSO 2018; hysteroscopic polypectomy 2003; supracervical hysterectomy 2006 u/s 05/04/22 showed The uterus is surgically absent s/p supracervical hysterectomy. Cervix has Nabothian cysts present and appears normal. The right ovary is surgically absent The left ovary is not visualized. There is no free fluid visualized nor evidence of mucin in the pelvis. documented in this encounterMercy Health07-26-2022 NotePap Smear Specimen AdequacyJuly 2021 5:53pmComment.Satisfactory for evaluation. Endocervical and/or squamous metaplasticcells (endocervical component)are present.[employer] INTER[facility]ACED A#[id number] Regional Medical Center Work Phone: Comment on above:Satisfactory for evaluation. Endocervical and/or squamous metaplasticcells (endocervical component)are present.05-18-2022 NotePap Smear Specimen AdequacyJuly 2021 5:53pmComment. Satisfactory for evaluation. Endocervical and/or squamous metaplasticcells (endocervical component)are present.[facility] [employer] A#[id number] Regional Medical Center Work Phone: Comment on above:Satisfactory for evaluation. Endocervical and/or squamous metaplasticcells (endocervical component)are present.05-18-2022 NotePap Smear Specimen AdequacyJuly 2021 5:53pmComment. Satisfactory for evaluation. Endocervical and/or squamous metaplasticcells (endocervical component)are present.[facility] A#[id number] Regional Medical Center Work Phone: Comment on above:Satisfactory for evaluation. 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 Nl genetic testing. Per Dr. Lewis, should have repeat annula u/s to assess for recurrence or mucin in pelvis. H/o jayden 2006, appendectomy/RSO 2018; hysteroscopic polypectomy 2003; supracervical hysterectomy 2006 U/s 03/24/21 showed The fundus of the uterus is surgically absent and the cervix appears normal The right ovary is surgically absent. Left Ovary: Size 11 mm x 8 mm x 8 mm There is no free fluid or mucin seen on the scan, documented in this encounterMercy Health02-04-2022 Chief complaint Narrative - Reported* An interactive audio and video telecommunication system which permits real time communications between the patient (at the originating site) and provider (at the distant site) was utilized to providethis telehealth service. * Verbal consent was requested and obtained from BRISSA JEFFERY on this date, 11/27/2021 09:20 AM , for a telehealth visit. * Npv referred for concern for immune issue. [employer]Psmp[facility]af[facility] [employer] Work Phone: [phone]) 309-661612-08-2021 History of Present illness Narrative* Fabián Castro RT(R) - 09/30/2021 8:00 AM EST Radiology Service Progress Note PATIENT NAME: Brissa Jeffery DATE OF SERVICE: September 30, 2021 TIME: 8:05 AM PATIENT IDENTITY VERIFICATION COMPLETED USING TWO (2) IDENTIFIERS: Name and Date of confirmedby patient verbally. FALL SCREENING: Has the patient had 2 falls in the last year or 1 fall with injury or currently using an Ambulatory Assistive Device (Walker, Cane, Wheelchair, Crutches, etc.)? No PATIENT GENDER DATA: Female. status: : No status: NO. PATIENT RELEVANT IMPLANT DATA REVIEWED: Not Applicable RADIOLOGY DEPARTMENT: General X-ray: Exam(s) Completed: Upper Extremity X- Ray(s): Hand, left PERIPHERAL IV DATA: Not applicable SIGNED BY: RT Poornima(R) September 30, 2021 8:05 AM documented in this encounterMercy Health07-25-2019 History of Past illness Narrative* Problem Noted Date Resolved Date Elevated blood pressure read ing without diagnosis of hypertension 05/17/2019 07/16/2021 Last Assessment & Plan: mikala blood pressure 136/81. Right lower quadrant pain 01/09/20192019 Adnexal mass 01/09/2019 07/15/2020 Last Assessment & Plan: Removed 05/2019 Dr. Shen. Elevated blood pressure reading 10/23/2018 04/10/2020 Family history of breast cancer 07/24/2018 04/10/2020 Excess weight 07/24/2018 04/10/2020 Multiple thyroid nodules 05/24/2018 020 Abnormal finding on breast imaging 04/04/2017 05/27/2018 Overview: Mri - no evidence of malignancy 05/04/2018 Encounter for screening colonoscopy 04/04/2017 04/10/2020 Breast swelling 03/19/2015 04/04/2017 Overview: Right breast Inclusion cyst of right breast 03/19/2015 0 05/27/2018 Obesity 04/04/2020 documented as of this encounter (statuses as of 05/03/2022) [facility]07-25-2019 History of Past illness Narrative* Problem Noted Date Resolved Date Elevated blood pressure read ing without diagnosis of hypertension 05/17/2019 07/16/2021 Last Assessment & Plan: mikala blood pressure 136/81. Right lower quadrant pain 01/09/20192019 Adnexal mass 01/09/2019 07/15/2020 Last Assessment & Plan: Removed 05/2019 Dr. Shen. Elevated blood pressure reading 10/23/2018 04/10/2020 Family history of breast cancer 07/24/2018 04/10/2020 Excess weight 07/24/2018 04/10/2020 Multiple thyroid nodules 05/24/2018 020 Abnormal finding on breast imaging 04/04/2017 05/27/2018 Overview: Mri - no evidence of malignancy 05/04/2018 Encounter for screening colonoscopy 04/04/2017 04/10/2020 Breast swelling 03/19/2015 04/04/2017 Overview: Right breast Inclusion cyst of right breast 03/19/2015 0 05/27/2018 Obesity 04/04/2020 documented as of this encounter (statuses as of 07/01/2022) [facility]07-25-2019 History of Past illness Narrative* Problem Noted Date Diagnosed Date Resolved Date Elevated blood pressure read ing without diagnosis of hypertension 05/17/2019 07/16/2021 Last Assessment & Plan: mikala blood pressure 136/81. Right lower quadrant pain 01/09/2019 Adnexal mass 01/09/2019 07/15/2020 Last Assessment & Plan: Removed 05/2019 Dr. Shen. Elevated blood pressure reading 10/23/2018 04/10/2020 Family history of breast cancer 07/24/2018 04/10/2020 Excess weight 07/24/2018 04/10/2020 Multiple thyroid nodules 05/24/2018 Abnormal finding on breast imaging 04/04/2017 05/27/2018 Overview: Mri - no evidence of malignancy 05/04/2018 Encounter for screening colonoscopy 04/04/2017 04/10/2020 Breast swelling 03/19/2015 04/04/2017 Overview: Right breast Inclusion cyst of right breast 03/19/2015 05/27/2018 Obesity 04/04/2020 documented as of this encounter (statuses as of 05/07/2023) [facility]07-25-2019 History of Past illness Narrative* Problem Noted Date Diagnosed Date Resolved Date Elevated blood pressure read ing without diagnosis of hypertension 05/17/2019 07/16/2021 Last Assessment & Plan: mikala blood pressure 136/81. Right lower quadrant pain 01/09/2019 Adnexal mass 01/09/2019 07/15/2020 Last Assessment & Plan: Removed 05/2019 Dr. Shen. Elevated blood pressure reading 10/23/2018 04/10/2020 Family history of breast cancer 07/24/2018 04/10/2020 Excess weight 07/24/2018 04/10/2020 Multiple thyroid nodules 05/24/2018 Abnormal finding on breast imaging 04/04/2017 05/27/2018 Overview: Mri - no evidence of malignancy 05/04/2018 Encounter for screening colonoscopy 04/04/2017 04/10/2020 Breast swelling 03/19/2015 04/04/2017 Overview: Right breast Inclusion cyst of right breast 03/19/2015 05/27/2018 Obesity 04/04/2020 documented as of this encounter (statuses as of 08/16/2023) [facility]07-25-2019 History of Past illness Narrative* Problem Noted Date Diagnosed Date Resolved Date Elevated blood pressure read ing without diagnosis of hypertension 05/17/2019 07/16/2021 Last Assessment & Plan: mikala blood pressure 136/81. Right lower quadrant pain 01/09/2019 Adnexal mass 01/09/2019 07/15/2020 Last Assessment & Plan: Removed 05/2019 Dr. Shen. Elevated blood pressure reading 10/23/2018 04/10/2020 Family history of breast cancer 07/24/2018 04/10/2020 Excess weight 07/24/2018 04/10/2020 Multiple thyroid nodules 05/24/2018 Abnormal finding on breast imaging 04/04/2017 05/27/2018 Overview: Mri - no evidence of malignancy 05/04/2018 Encounter for screening colonoscopy 04/04/2017 04/10/2020 Breast swelling 03/19/2015 04/04/2017 Overview: Right breast Inclusion cyst of right breast 03/19/2015 05/27/2018 Obesity 04/04/2020 documented as of this encounter (statuses as of 08/31/2023) [facility]* Diagnosis Onset Date Resolution Status Fatty liver acute GERD (gastroesophageal reflux disease) acute Obesity acute Spasm of bowel acute Thrombocytopenia chronic Pelvic pain noneactive Back pain noneactive Michael tumor of right ovary acute DONNA (stress urinary incontinence, female) acute UTI (urinary tract infection) acute Encounter for routine gynecological examination noneactive [facility] Work Phone: Evaluation note* Diagnosis Onset Date Resolution Status Fatty liver acute GERD (gastroesophageal reflux disease) acute Obesity acute Spasm of bowel acute Thrombocytopenia chronic Pelvic pain noneactive Back pain noneactive Michael tumor of right ovary acute UTI (urinary tract infection) acute DONNA (stress urinary incontinence, female) chronic Encounter for routine gynecological examination noneactive Chronic back pain chronic Essential hypertension chron ic 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 LINDSAY (obstructive sleep apnea) chronic DONNA (stress urinary incontinence, female) chronic [facility] Work Phone: Evaluation note* Diagnosis Onset Date Resolution Status Muscle cramps at night acute Chronic sinusitis chronic Essential hypertension chron ic LINDSAY (obstructive sleep apnea) chronic Barretts esophagus chronic GERD (gastroesophageal reflux disease) chronic NAFLD (nonalcoholic fatty liver disease) chronic Hypothyroidism chronic Multinodular goiter chronic [facility] Work Phone: Evaluation note* Diagnosis Onset Date Resolution Status Muscle cramps at night acute Chronic sinusitis chronic Essential hypertension chron ic LINDSAY (obstructive sleep apnea) chronic Barretts esophagus chronic GERD (gastroesophageal reflux disease) chronic NAFLD (nonalcoholic fatty liver disease) chronic Hypothyroidism chronic Multinodular goiter chronic 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 Metabolic syndrome acute Essential hypertension chron ic [facility] Work Phone: Evaluation note* Diagnosis Onset Date Resolution Status Hypothyroidism chronic Metabolic syndrome chronic Obesity chronic Barretts esophagus chronic NAFLD (nonalcoholic fatty liver disease) chronic HUGGINS (nonalcoholic steatohepatitis) chronic Obesity [facility] Work Phone: Evaluation note* Diagnosis Onset Date Resolution Status Hypothyroidism chronic Metabolic syndrome chronic Obesity chronic Barretts esophagus chronic NAFLD (nonalcoholic fatty liver disease) chronic HUGGINS (nonalcoholic steatohepatitis) chronic Obesity chronic Encounter for routine gynecological examination noneactive Thrombocytopenia [facility] Work Phone: Evaluation note* Diagnosis Onset Date Resolution Status Barretts esophagus chronic NAFLD (nonalcoholic fatty liver disease) chronic Obesity chronic Essential hypertension chron ic Metabolic syndrome chronic Dilated aortic root noneacti ve [facility] Work Phone: Evaluation note* Diagnosis Onset Date Resolution Status Barretts esophagus chronic NAFLD (nonalcoholic fatty liver disease) chronic Obesity chronic Essential hypertension chron ic Metabolic syndrome chronic Dilated aortic root noneacti ve 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 Metabolic syndrome chronic Multinodular goiter chronic Obesity [facility] Work Phone: Evaluation note* Diagnosis Onset Date Resolution Status Barretts esophagus chronic NAFLD (nonalcoholic fatty liver disease) chronic Obesity chronic Essential hypertension chron ic Metabolic syndrome chronic Dilated aortic root noneacti ve 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 note* Diagnosis Michael tumor of right ovary- Primary [facility] Diagnosis At high risk for breast cancer- Primary Breast skin changes Occasionally has difficulty accessing primary care provider Family history of breast cancer Family history of malignant neoplasm of breast Skin cancer of anterior chest Other malignant neoplasm of skin of trunk, except scrotum [facility] Diagnosis Abnormal finding on breast imaging [facility] Diagnosis Breast skin changes [facility]* Diagnosis Screening for lipid disorders- Primary Class 3 severe obesity due to excess calories without serious comorbidity with body mass index (BMI) of 45.0 to 49.9 in adult (HCC) Acquired hypothyroidism Unspecified hypothyroidism Essential hypertension Unspecified essential hypertension Encounter for medical examination to establish care Thrombocytopenia (HCC) Unspecified thrombocytopenia Obstructive sleep apnea syndrome Obstructive sleep apnea (adult) (pediatric) Nonalcoholic steatohepatitis (HUGGINS) Gastroesophageal reflux disease without esophagitis Esophageal reflux [facility]* Diagnosis At high risk for breast cancer Breast skin changes [facility]* Diagnosis Class 3 severe obesity due to excess calories without serious comorbidity with body mass index (BMI) of 45.0 to 49.9 in adult (HCC)- Primary Fatty liver Other chronic nonalcoholic liver disease Prediabetes Other abnormal glucose [facility]* Diagnosis Class 3 severe obesity due to excess calories without serious comorbidity with body mass index (BMI) of 45.0 to 49.9 in adult (HCC)- Primary Fatty liver Other chronic nonalcoholic liver disease Prediabetes Other abnormal glucose [facility]* Diagnosis Encounter for gynecological examination without abnormal finding- Primary Michael tumor of ovary, right [facility] Diagnosis Class 3 severe obesity due to excess calories without serious comorbidity with body mass index (BMI) of 45.0 to 49.9 in adult (HCC)- Primary Vaccination not carried out because of patient refusal Dyspnea on exertion Other dyspnea and respiratory abnormality [facility]* Diagnosis Shortness of breath- Primary LINDSAY treated with BiPAP Class 3 severe obesity due to excess calories without serious comorbidity with body mass index (BMI) of 40.0 to 44.9 in adult (HCC) [facility] Diagnosis Axillary mass, right- Primary Fatty liver Other chronic nonalcoholic liver disease LINDSAY (obstructive sleep apnea) Obstructive sleep apnea (adult) (pediatric) Elevated blood pressure reading without diagnosis of hypertension RUQ pain Abdominal pain, right upper quadrant Goiter Goiter, unspecified Subclinical hypothyroidism Other specified acquired hypothyroidism Nava's esophagus without dysplasia Nava's esophagus Adnexal mass Other specified symptom associated with female genital organs Bilateral fibrocystic breast changes Need for vaccination Need for prophylactic vaccination and inoculation against unspecified single disease Excoriation of back, unspecified laterality, initial encounter Elevated liver function tests Other abnormal blood chemistry Subclinical hypothyroidism- Primary Other specified acquired hypothyroidism Fluid retention in legs Edema LINDSAY (obstructive sleep apnea) Obstructive sleep apnea (adult) (pediatric) Elevated glucose Other abnormal glucose Flushing Nava's esophagus without dysplasia- Primary Nava's esophagus Primary hypertension Unspecified essential hypertension LINDSAY (obstructive sleep apnea) Obstructive sleep apnea (adult) (pediatric) RUQ pain Abdominal pain, right upper quadrant Fatty liver Other chronic nonalcoholic liver disease Subclinical hypothyroidism Other specified acquired hypothyroidism Vitamin D deficiency Unspecified vitamin D deficiency Morbid obesity with BMI of 40.0-44.9, adult (HCC) Morbid obesity Bilateral fibrocystic breast changes Thrombocytopenia (HCC) Thrombocytopenia, unspecified Dizziness Dizziness and giddiness Brain fog Special screening examination for viral disease Special screening examination for unspecified viral disease Pain Generalized pain [facility] Diagnosis LINDSAY treated with BiPAP- Primary Shortness of breath Class 3 severe obesity due to excess calories without serious comorbidity with body mass index (BMI) of 40.0 to 44.9 in adult (HCC) [facility]* Diagnosis Dizziness- Primary Dizziness and giddiness History of sleep apnea [facility] Diagnosis Dizziness- Primary Dizziness and giddiness Vaccination not carried out because of patient refusal CO2 retention Acidosis Unintentional weight loss Loss of weight Abdominal bloating Flatulence, eructation, and gas pain LUCERO (dyspnea on exertion) Other dyspnea and respiratory abnormality Chest pain, unspecified type [facility] Diagnosis Vaccination not carried out because of patient refusal Dizziness Dizziness and giddiness CO2 retention Acidosis Unintentional weight loss Loss of weight Abdominal bloating Flatulence, eructation, and gas pain LUCERO (dyspnea on exertion) Other dyspnea and respiratory abnormality Chest pain, unspecified type [facility] Diagnosis Lung nodule- Primary Other diseases of lung, not elsewhere classified LINDSAY treated with BiPAP Nocturnal hypoxia Class 3 severe obesity due to excess calories without serious comorbidity with body mass index (BMI) of 40.0 to 44.9 in adult (HCC) [facility]* Diagnosis Shoulder blade pain- Primary Pain in joint, shoulder region [facility]* Diagnosis Nasal polyp, unspecified [facility] Diagnosis Lung nodule Other diseases of lung, not elsewhere classified [facility]* Diagnosis Lung nodule- Primary Other diseases of lung, not elsewhere classified LINDSAY treated with BiPAP Chronic respiratory failure with hypoxia (HCC) Class 3 severe obesity due to excess calories without serious comorbidity with body mass index (BMI) of 40.0 to 44.9 in adult ([facility]) [facility]* Diagnosis Lung nodule Other diseases of lung, not elsewhere classified [facility]* Diagnosis Lung nodule Other diseases of lung, not elsewhere classified [facility]* Diagnosis At high risk for breast cancer- Primary Family history of breast cancer Family history of malignant neoplasm of breast Breast screening Breast screening, unspecified [facility]* Diagnosis Nava's esophagus without dysplasia- Primary Gastroesophageal reflux disease without esophagitis Esophageal reflux 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 Nonalcoholic steatohepatitis (HUGGINS) Obstructive sleep apnea syndrome Obstructive sleep apnea (adult) (pediatric) Primary hypertension Unspecified essential hypertension History of esophageal stricture Michael tumor of right ovary History of thrombocytopenia Multinodular goiter Nontoxic multinodular goiter Mitral valve problem Other and unspecified mitral valve diseases Morbid obesity (HCC) Morbid obesity Benign cyst of right kidney [facility]* Diagnosis Nasal polyp, unspecified- Primary Nasal polyp, unspecified [facility] Diagnosis Multinodular goiter- Primary Nontoxic multinodular goiter Subcutaneous nodule of right foot Pain of right scapula Muscle strain of right scapular region, initial encounter- Primary Acute pain of right shoulder Pain of right scapula [facility]* Diagnosis Multinodular goiter- Primary Nontoxic multinodular goiter Subcutaneous nodule of right foot Pain of right scapula Acute pain of right shoulder [facility] Diagnosis Multinodular goiter- Primary Nontoxic multinodular goiter Subcutaneous nodule of right foot Pain of right scapula Lung nodule Other diseases of lung, not elsewhere classified [facility] Diagnosis Multinodular goiter- Primary Nontoxic multinodular goiter Subcutaneous nodule of right foot Pain of right scapula Muscle strain of right scapular region, initial encounter [facility] Diagnosis Multinodular goiter- Primary Nontoxic multinodular goiter Subcutaneous nodule of right foot Pain of right scapula [facility] Diagnosis Multinodular goiter- Primary Nontoxic multinodular goiter Subcutaneous nodule of right foot Pain of right scapula Subcutaneous nodule of right foot [facility] Diagnosis Multinodular goiter- Primary Nontoxic multinodular goiter Subcutaneous nodule of right foot Pain of right scapula Multinodular goiter Nontoxic multinodular goiter [facility] Diagnosis Multinodular goiter- Primary Nontoxic multinodular goiter Subcutaneous nodule of right foot Pain of right scapula Lung nodule- Primary Other diseases of lung, not elsewhere classified Chronic respiratory failure with hypoxia (HCC) LINDSAY treated with BiPAP Class 3 severe obesity due to excess calories without serious comorbidity with body mass index (BMI) of 40.0 to 44.9 in adult (HCC) [facility] Diagnosis Multinodular goiter- Primary Nontoxic multinodular goiter Subcutaneous nodule of right foot Pain of right scapula Thyroid nodule Nontoxic uninodular goiter [facility] Diagnosis Multinodular goiter- Primary Nontoxic multinodular goiter Subcutaneous nodule of right foot Pain of right scapula Encounter for screening mammogram for malignant neoplasm of breast [facility] Diagnosis Multinodular goiter- Primary Nontoxic multinodular goiter Subcutaneous nodule of right foot Pain of right scapula Annual physical exam- Primary Routine general medical examination at a health care facility Hyperlipidemia, unspecified hyperlipidemia type Elevated fasting glucose Impaired fasting glucose 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's esophagus without dysplasia Nonalcoholic steatohepatitis (HUGGINS) [facility] Diagnosis Multinodular goiter- Primary Nontoxic multinodular goiter Subcutaneous nodule of right foot Pain of right scapula Annual physical exam- Primary Routine general medical examination at a health care facility Hyperlipidemia, unspecified hyperlipidemia type Elevated fasting glucose Impaired fasting glucose 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's esophagus without dysplasia Nonalcoholic steatohepatitis (HUGGINS) Michael tumor of ovary, right- Primary [facility] Diagnosis Multinodular goiter- Primary Nontoxic multinodular goiter [facility] Diagnosis Multinodular goiter- Primary Nontoxic multinodular goiter Subcutaneous nodule of right foot Pain of right scapula Annual physical exam- Primary Routine general medical examination at a health care facility Hyperlipidemia, unspecified hyperlipidemia type Elevated fasting glucose Impaired fasting glucose 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's esophagus without dysplasia Nonalcoholic steatohepatitis (HUGGINS) Increased risk of breast cancer- Primary Family history of breast cancer Family history of malignant neoplasm of breast Encounter for examination and observation for other specified reasons Encounter for screening mammogram for breast cancer History of skin cancer Personal history of other malignant neoplasm of skin [facility] Diagnosis Multinodular goiter- Primary Nontoxic multinodular goiter Subcutaneous nodule of right foot Pain of right scapula Annual physical exam- Primary Routine general medical examination at a health care facility Hyperlipidemia, unspecified hyperlipidemia type Elevated fasting glucose Impaired fasting glucose 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's esophagus without dysplasia Nonalcoholic steatohepatitis (HUGGINS) At high risk for breast cancer Family history of breast cancer Family history of malignant neoplasm of breast [facility] Diagnosis Multinodular goiter- Primary Nontoxic multinodular goiter Subcutaneous nodule of right foot Pain of right scapula Annual physical exam- Primary Routine general medical examination at a health care facility Hyperlipidemia, unspecified hyperlipidemia type Elevated fasting glucose Impaired fasting glucose 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's esophagus without dysplasia Nonalcoholic steatohepatitis (HUGGINS) Encounter for gynecological examination without abnormal finding- Primary [facility] Diagnosis Multinodular goiter- Primary Nontoxic multinodular goiter Subcutaneous nodule of right foot Pain of right scapula Annual physical exam- Primary Routine general medical examination at a health care facility Hyperlipidemia, unspecified hyperlipidemia type Elevated fasting glucose Impaired fasting glucose 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's esophagus without dysplasia Nonalcoholic steatohepatitis (HUGGINS) Lung nodule Other diseases of lung, not elsewhere classified [facility] Diagnosis Multinodular goiter- Primary Nontoxic multinodular goiter Subcutaneous nodule of right foot Pain of right scapula Annual physical exam- Primary Routine general medical examination at a health care facility Hyperlipidemia, unspecified hyperlipidemia type Elevated fasting glucose Impaired fasting glucose 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's esophagus without dysplasia Nonalcoholic steatohepatitis (HUGGINS) Lung nodule- Primary Other diseases of lung, not elsewhere classified [facility] Diagnosis Multinodular goiter- Primary Nontoxic multinodular goiter Subcutaneous nodule of right foot Pain of right scapula Annual physical exam- Primary Routine general medical examination at a health care facility Hyperlipidemia, unspecified hyperlipidemia type Elevated fasting glucose Impaired fasting glucose 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 * Patient has 2 concerns today. She has not yet received the COVID-19 vaccination. She would like to get the vaccine. She is worried that her medical history would contraindicate this. The patient has not had a history of any vaccine reactions. She denies any history of reactions to vaccine ingredients. * Patient is also concerned that she has an immune problem. She is wondering if there is a connectionbetween her thyroid disease and low platelets. She has seen a analytical lab analyst in the past who has an evaluation and told her that careful monitoring is okay. She reports that she does not feel sick and she is not having recurrent infections. She does have some fatigue. * She reports some chronic sinus symptoms. She has seen Dr. Ta Lutz in ENT. She has a history of a septoplasty and turbinate reduction. She also reports a history of negative allergy skin tests. She has been diagnosed with nonallergic rhinitis. * Patient also has a history of sleep apnea. She uses CPAP. She is scheduled to see a upholstery department supervisor for management of this in the near future * Current medications include Zegerid, hydrochlorothiazide, ursodiol, and vitamin E. * Patient has provided some recent labs. These are reviewed and scanned to chart. Her recent thyroid-stimulating hormone was high at 5.6, her CRP was elevated at 16.2 on September 29, 2021 and her platelets were 97,000 in October. [id number] [employer] Work Phone: Hospital Discharge instructions* Attachments The following attachments cannot be sent through Care Everywhere. * Dizziness, Adult ED (Nepalese) documented in this [facility] [employer]Instructions* Name Dates Details Patient Instructions Indication:BMI 40.0-44.9, adult Start:31-Jan-2023 Instruction Type:Provider Instructions for Treatment How to Access Health Informa tion Online using Patient Portal and [employer] Indication:BMI 40.0-44.9, adult Start:31-Jan-2023 Instruction Type:Patient Education [facility]; [facility] Work Phone: MC2* Name Dates Details Patient Instructions Indication:BMI 40.0-44.9, adult Start:31-Jan-2023 Instruction Type:Provider Instructions for Treatment How to Access Health Informa tion Online using Patient Portal and [employer] Apps Indication:BMI 40.0-44.9, adult Start:31-Jan-2023 Instruction Type:Patient Education [facility]; [facility] Work Phone: [email or web address]* Name Dates Details Patient Instructions Indication:BMI 40.0-44.9, adult Start:31-Jan-2023 Instruction Type:Provider Instructions for Treatment How to Access Health Informa tion Online using Patient Portal and [employer] Indication:BMI 40.0-44.9, adult Start:31-Jan-2023 Instruction Type:Patient Education [facility]; [facility] Work Phone: [email or web address]* Name Dates Details Patient Instructions Indication:BMI 40.0-44.9, adult Start:31-Jan-2023 Instruction Type:Provider Instructions for Treatment How to Access Health Informa tion Online using Patient Portal and [employer] Indication:BMI 40.0-44.9, adult Start:31-Jan-2023 Instruction Type:Patient Education [facility]; [facility] Work Phone: instructions* Name Dates Details Patient Instructions Indication:BMI 40.0-44.9, adult Start:05-May-2023 Instruction Type:Provider Instructions for Treatment How to Access Health Informa tion Online using Patient Portal and [employer] Indication:BMI 40.0-44.9, adult Start:05-May-2023 Instruction Type:Patient Education Patient Instructions Indication:BMI 40.0-44.9, adult Start:31-Jan-2023 Instruction Type:Provider Instructions for Treatment How to Access Health Informa tion Online using Patient Portal and [employer] Indication:BMI 40.0-44.9, adult Start:31-Jan-2023 Instruction Type:Patient Education [facility]; [facility] Work Phone: instructions* Name Dates Details Patient Instructions Indication:BMI 40.0-44.9, adult Start:05-May-2023 Instruction Type:Provider Instructions for Treatment How to Access Health Informa tion Online using Patient Portal and [employer] Indication:BMI 40.0-44.9, adult Start:05-May-2023 Instruction Type:Patient Education Patient Instructions Indication:BMI 40.0-44.9, adult Start:31-Jan-2023 Instruction Type:Provider Instructions for Treatment How to Access Health Informa tion Online using Patient Portal and [employer] Indication:BMI 40.0-44.9, adult Start:31-Jan-2023 Instruction Type:Patient Education [facility]; [facility] Work Phone: instructions* Name Dates Details Patient Instructions Indication:BMI 40.0-44.9, adult Start:05-May-2023 Instruction Type:Provider Instructions for Treatment How to Access Health Informa tion Online using Patient Portal and [employer] Indication:BMI 40.0-44.9, adult Start:05-May-2023 Instruction Type:Patient Education Patient Instructions Indication:BMI 40.0-44.9, adult Start:31-Jan-2023 Instruction Type:Provider Instructions for Treatment How to Access Health Informa tion Online using Patient Portal and [employer] Indication:BMI 40.0-44.9, adult Start:31-Jan-2023 Instruction Type:Patient Education [facility]; [facility] Work Phone: Instructions* Name Dates Details Patient Instructions Indication:Non-smoker Start:21-Jun-2023 Instruction Type:Provider Instructions for Treatment Patient Instructions Indication:Non-smoker Start:21-Jun-2023 Instruction Type:Provider Instructions for Treatment How to Access Health Informa tion Online using Patient Portal and [employer] Indication:Non-smoker Start:21-Jun-2023 Instruction Type:Patient Education Patient Instructions Indication:BMI 40.0-44.9, adult Start:05-May-2023 Instruction Type:Provider Instructions for Treatment How to Access Health Informa tion Online using Patient Portal and [employer] Indication:BMI 40.0-44.9, adult Start:05-May-2023 Instruction Type:Patient Education Patient Instructions Indication:BMI 40.0-44.9, adult Start:31-Jan-2023 Instruction Type:Provider Instructions for Treatment How to Access Health Informa tion Online using Patient Portal and [employer] Indication:BMI 40.0-44.9, adult Start:31-Jan-2023 Instruction Type:Patient Education [facility]; [facility] Work Phone: Instructions* Name Dates Details Patient Instructions Indication:Non-smoker Start:21-Jun-2023 Instruction Type:Provider Instructions for Treatment Patient Instructions Indication:Non-smoker Start:21-Jun-2023 Instruction Type:Provider Instructions for Treatment How to Access Health Informa tion Online using Patient Portal and 3rd Republican Apps Indication:Non-smoker Start:21-Jun-2023 Instruction Type:Patient Education Patient Instructions Indication:BMI 40.0-44.9, adult Start:05-May-2023 Instruction Type:Provider Instructions for Treatment How to Access Health Informa tion Online using Patient Portal and 3rd Republican Apps Indication:BMI 40.0-44.9, adult Start:05-May-2023 Instruction Type:Patient Education Patient Instructions Indication:BMI 40.0-44.9, adult Start:31-Jan-2023 Instruction Type:Provider Instructions for Treatment How to Access Health Informa tion Online using Patient Portal and 3rd Republican Apps Indication:BMI 40.0-44.9, adult Start:31-Jan-2023 Instruction Type:Patient Education [facility]; [facility] Work Phone: instructions* Name Dates Details Patient Instructions Indication:BMI 40.0-44.9, adult Start:02-Aug-2023 Instruction Type:Provider Instructions for Treatment How to Access Health Informa tion Online using Patient Portal and 3rd Republican Apps Indication:BMI 40.0-44.9, adult Start:02-Aug-2023 Instruction Type:Patient Education Patient Instructions Indication:Non-smoker Start:21-Jun-2023 Instruction Type:Provider Instructions for Treatment Patient Instructions Indication:Non-smoker Start:21-Jun-2023 Instruction Type:Provider Instructions for Treatment How to Access Health Informa tion Online using Patient Portal and 3rd Republican Apps Indication:Non-smoker Start:21-Jun-2023 Instruction Type:Patient Education Patient Instructions Indication:BMI 40.0-44.9, adult Start:05-May-2023 Instruction Type:Provider Instructions for Treatment How to Access Health Informa tion Online using Patient Portal and 3rd Republican Apps Indication:BMI 40.0-44.9, adult Start:05-May-2023 Instruction Type:Patient Education Patient Instructions Indication:BMI 40.0-44.9, adult Start:31-Jan-2023 Instruction Type:Provider Instructions for Treatment How to Access Health Informa tion Online using Patient Portal and 3rd Republican Apps Indication:BMI 40.0-44.9, adult Start:31-Jan-2023 Instruction Type:Patient Education [facility]; [facility] Work Phone: instructions* Name Dates Details Patient Instructions Indication:BMI 40.0-44.9, adult Start:02-Aug-2023 Instruction Type:Provider Instructions for Treatment How to Access Health Informa tion Online using Patient Portal and 3rd Republican Apps Indication:BMI 40.0-44.9, adult Start:02-Aug-2023 Instruction Type:Patient Education Patient Instructions Indication:Non-smoker Start:21-Jun-2023 Instruction Type:Provider Instructions for Treatment Patient Instructions Indication:Non-smoker Start:21-Jun-2023 Instruction Type:Provider Instructions for Treatment How to Access Health Informa tion Online using Patient Portal and 3rd Republican Apps Indication:Non-smoker Start:21-Jun-2023 Instruction Type:Patient Education Patient Instructions Indication:BMI 40.0-44.9, adult Start:05-May-2023 Instruction Type:Provider Instructions for Treatment How to Access Health Informa tion Online using Patient Portal and 3rd Republican Apps Indication:BMI 40.0-44.9, adult Start:05-May-2023 Instruction Type:Patient Education Patient Instructions Indication:BMI 40.0-44.9, adult Start:31-Jan-2023 Instruction Type:Provider Instructions for Treatment How to Access Health Informa tion Online using Patient Portal and 3rd Republican Apps Indication:BMI 40.0-44.9, adult Start:31-Jan-2023 Instruction Type:Patient Education [facility]; [facility] Work Phone: progress note Author Joyce Kelley [facility] Services Note Date/Time August 13, 2025 5 :37pm [facility] [address] [address] OFFICE VISIT Date of Service: 08/13/25 1600 MR#: [id number] Acct: [id number] Name: BRISSA JEFFERY Rep #: [id number] : 1965 From: Joyce maier MD Age/Sex: 59/F Location: [facility] Status: Signed HPI Subjective Date of Service 08/13/25 Chief Complaint Low platelet count and skin cancer History of Present Illness 56-year-old female was first for consultation in October 2021 for a chronic thrombocytopenia. 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 The tissue excised measured 0.9 cm x 0.4 cm x 1.1 cm. The pathology was sent to a second opinion at [facility] which concurred with the diagnosis being a primary skin cancer rather than breast cancer. IHC was negative for ER and HER2. March 30, 2024 the patient underwent wide excision and there was no residual malignancy identified in the tissue that measured 2.3 cm x 1.1 cm x 1.0 cm. A diagnostic mammogram in March 2024 ([facility]) showed no suspicious abnormalities. The patient was seen by breast surgeon at [facility] in March 2024 who concurred with the pathologist that this is a primary skin cancer rather than breast cancer and advised continued annual screening. 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 Chronic headaches Goiter Chronic bronchitis Breast lump Bleeding disorder UTI (urinary tract infection) Anemia Surgical History History of lumpectomy of right breast H/O abdominal supracervical subtotal hysterectomy History of appendectomy Hx of nasal septoplasty Hx of oophorectomy History of colonoscopy History of cholecystectomy Hx of umbilical hernia repair Family History Father Hypertension Diabetes CHF (congestive heart failure) Heart disease CAD (coronary artery disease) COPD (chronic obstructive pulmonary disease) Pneumonia Dysphagia Dementia Other Arthritis Osteoporosis Social History Smoking Status: Never smoker alcohol intake: never substance use type: does not use seatbelt use: always do you feel safe at home: Yes additional social history: 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, [employer]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 YURIY Morales Easy bruising otherwise unaware of any abnormal bleeding Intake Vital Signs 08/14/24 14:34 08/13/25 16:01 08/13/25 16:09 Height 5 ft 6 in 5 ft 6 in 5 ft 6 in Weight: 124.738 kg BMI 44.4 BP 128/82 H Blood Pressure Location Lt brachial Position Sitting Respiration 16 Pulse 82 Pulse Source Monitor Temp 98.2 F Temperature Source Temporal Artery Pulse Oximetry (%) 97 Oxygen Delivery Method room air Intake Is patient in pain?: No Allergies trimethoprim (From Bactrim) Allergy (Mild, Verified 08/13/25 16:03) dizzy Seasonal Allergies: Uncoded Allergy (Verified 08/13/25 16:03) Sinus congestion Medications ?Medication ?Instructions ?Recorded ?Confirmed ?Type hydrochlorothiazide 12.5 mg tablet 12.5 mg PO DAILY #9 0 tabs 02/19/22 08/13/25 Rx multivitamin 1 tab PO DAILY 08/16/2307/25 History cholecalciferol (vitamin D3) 125 125 mcg PO DAILY 12/1708/13/25 History mcg (5,000 unit) capsule mometasone 50 mcg/actuation nasal 2 spray intranasal D AILY 04/24/24 08/13/25 History spray (Nasonex 24hr Allergy) ursodiol 300 mg capsule 300 mg PO BID #180 caps 06/2408/13/25 Rx metformin 500 mg tablet 500 mg PO QDAY 08/06/2407/25 History levothyroxine 112 mcg capsule 112 mcg PO DAILY #90 cap s 09/28/24 08/13/25 Rx (Tirosint) estradiol 0.025 mg/24 hr 1 patch transdermal 2XW 07/2508/13/25 History semiweekly transdermal patch (Vivelle-Dot) omeprazole 20 mg capsule,delayed 20 mg PO QDAY 5 08/13/25 History release Have you fallen in the past year?: No Central Venous Access Central Venous Access: No Laboratory Tests 10/28/21 05/04/22 08/16/23 09:50 13:20 10:31 Plt Count 97 L 91 L 90 L 09/09/23 08/13/25 16:33 15:20 Plt Count 91 L 110 L Exam Physical Exam Const alert, oriented x3 and no apparent distress General Appearance: anxious Nutritional Appearance: morbidly obese Skin no petechiae Skin Narrative: Over the extremity General Skin Exam: ecchymosis Coding Level of Care Code Off vis,est,level 3 Exam Problem Focused Diagnoses Thrombocytopenia D69.6 Skin cancer C44.90 Assessment and Plan Assessment and Plan (1) Thrombocytopenia: Status: Chronic (2) Skin cancer: Status: Resolved Comment: 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 Medical history notable for: - Primary adenocarcinoma of the skin of the breast status post wide excision March 2024. - Chronic reflux with Nava's esophagus, nonalcoholic fatty liver, chronic back pain, morbid obesity, hypertension, hypothyroidism, obstructive sleep apnea. Plan: 1. Annual follow-up. Call prior to any invasive procedure to ensure adequacy of platelet count for the procedure. 2. Patient will continue for breast cancer screening under the care of her surgeon at [facility], skin cancer screening at [facility] and with Dr. Gomez for Nava's esophagus. Impression and plan discussed with patient. Joyce Kelley MD Adult Care Manager, [facility] Divisions of Medical Oncology & Hematology Department of Internal Medicine [place] [id number] This note was generated using a voice recognition system software. Although itwas reviewed by the author prior to finalization, it may still contain incorrectwords, spelling, and punctuation that were not noted when reviewing prior to saving. If a clinically significant typo or inaccurately typed phrase is noted, please notify the author. Clinical Quality Measures Falls Risk Screening/Assistive Devices Have you fallen in the past year?: No 08/13/25 4668 <Electronically signed by Joyce simmons MD> Date _ Joyce Kelley MD Cosigner Signature: Date (if applicable) CC: ~ [employer] Work Phone: Reason for referral (narrative)* Consultation (Routine) - Pending Review Specialty Diagnoses / Procedures Referred By Solomon mcmullen Referred To Contact Internal Medicine Diagnoses Occasionally has difficulty accessing primary care provider Procedures [facility] 60 MINUTES Vonnie Garza MD [address] [facility] [address] [place] [address] Shruthi Mcwilliams MD [address] [place] [address] [address] [place] [address] Referral ID Status Reason Start Date Expiration Date Visits Requested Visits Authorized [id number] Pending Review Specialty Services Required 04/12/2024 04/12/2025 1 1 * Imaging (Routine) - Pending Review Specialty Diagnoses / Procedures Referred By Contac t Referred To Contact Radiology Diagnoses At high risk for breast cancer Breast skin changes Procedures Bilateral breast MR with and without contrast Vonnie Garza MD [address] [place] [address] [address] [place] [address] Referral ID Status Reason Start Date Expiration Date V isits Requested Visits Authorized [id number] Pending Review 04/12/2024 04/12/2025 1 1 [facility] for referral (narrative)* Diagnostic Procedure Only (Routine) - Closed Specialty Diagnoses / Procedures Referred By Contac t Referred To Contact XR IMAGING Diagnoses Pain Procedures XR HAND GENERAL 3V PA/LAT/OBL LEFT X-RAY HAND MINIMUM 3 VIEWS Deandre Will PA-C [address] [address] Xr Imaging [place] [address] Referral ID Status Reason Start Date Expiration Date V isits Requested Visits Authorized [id number] Closed Auto-Generate d Referral 09/25/2021 10/25/2022 1 1 [facility] for referral (narrative)No reason for referral information [facility] Work Phone: Reason for visit Narrative* Diagnostic Procedure Only (Routine) - Closed Specialty Diagnoses / Procedures Referred By Contac t Referred To Contact [facility] Diagnoses Michael tumor of right ovary Procedures PELVIC US WHI US PELVIC NONOBSTETRIC REAL-TIME IMAGE COMPLETE Antoinette Carter MD [facility] [place] [address] [facility] [address] [place] [address] Referral ID Status Reason Start Date Expiration Date V isits Requested Visits Authorized [id number] Closed Auto-Generate d Referral 05/17/2023 05/09/2024 1 1 [facility] for visit Narrative* Imaging (Emergency) - Closed Specialty Diagnoses / Procedures Referred By [facility] t Referred To Contact Radiology Diagnoses Vaccination not carried out because of patient refusal Dizziness CO2 retention Unintentional weight loss Abdominal bloating LUCERO (dyspnea on exertion) Chest pain, unspecified type Procedures CT chest abdomen with contrast Sudhir Pedraza DO [address] [place] [address] Phone: tel: fax: Referral ID Status Reason Start Date Expiration Date Visits Re quested Visits Authorized [id number] Closed 09/06/2024 09/06/2025 1 1 [facility] for visit Narrative* Imaging (Routine) - Closed Specialty Diagnoses / Procedures [facility] Referred To Contact Radiology Diagnoses Nasal polyp, unspecified Procedures CT maxillofacial wo IV contrast Sunita White, [address] [facility] [address] [place] [address] Phone: tel: fax: Referral ID Status Reason Start Date Expiration Date Visits Re quested Visits Authorized [id number] Closed 10/11/2024 10/11/2025 1 1 [facility] for visit Narrative* Imaging (Routine) - Closed Specialty Diagnoses / Procedures Referred By [facility] Referred To Contact Radiology Diagnoses Lung nodule Procedures PET/CT skull base to mid thigh Eliu Maldonado MD [address] [place] [address] Phone: tel: fax: [facility] PET [address] [place] [address] Phone: tel: Referral ID Status Reason Start Date Expiration Date Visits Re quested Visits Authorized [id number] Closed 10/08/2024 10/08/2025 1 1 [facility] for visit Narrative* Imaging (Routine) - Closed Specialty Diagnoses / Procedures Referred By Solomon mcmullen Referred To Contact Radiology Diagnoses Lung nodule Procedures CT chest wo IV contrast Eliu Maldonado MD [address] [address] Phone: tel: fax: Referral ID Status Reason Start Date Expiration Date Visits Re quested Visits Authorized [id number] Closed 11/20/2024 11/20/2025 1 1 [facility] for visit Narrative* Therapy (Routine) - Authorized Specialty Diagnoses / Procedures Referred By Solomon mcmullen Referred To Contact Physical Therapy Diagnoses Strain of unspecified muscle, fascia and tendon at shoulder and upper arm level, right arm, subsequent encounter Procedures [facility] 60 MINUTES Eliu Jackson MD [address] [place] [address] Phone: tel: fax: [facility] Therapy at [facility] [address] [place] [address] Phone: tel: fax: Referral ID Status Reason Start Date Expiration Date Visits Requested Visits Authorized [id number] Authorized Specialty Services Required 01/17/2025 01/17/2026 2 2 [facility] N[facility]* Outpatient Surgery (Routine) - Closed Specialty Diagnoses / Procedures Referred By Solomon mcmullen Referred To Contact Radiology Diagnoses Thyroid nodule Sw pt/ pre'd/ prep adv/ neg covid/ rte randy/ provided estimate- paid on card/ order in epic Procedures US GUIDED THYROID NEEDLE CORE BIOPSY W/ REFLEX AFFIRMA US GUIDED THYROID BIOPSY Sudhir Pedraza DO [address] [place] [address] Phone: tel: fax: [facility] Imaging [address] [place] [address] Phone: tel: Referral ID Status Reason Start Date Expiration Date Visits Re quested Visits Authorized [id number] Closed 02/19/2025 02/14/2026 1 1 [facility] for visit Narrative* Imaging (Routine) - Closed Specialty Diagnoses / Procedures Referred By Contac t Referred To Contact Radiology Diagnoses At high risk for breast cancer Family history of breast cancer Procedures Bilateral breast MR with and without contrast Vonnie Garza MD [address] [facility] [address] [place] [address] Phone: tel: fax: Referral ID Status Reason Start Date Expiration Date Visits Re quested Visits Authorized [id number] Closed 11/29/2024 11/29/2025 1 1 [facility] Narrative* Imaging (Routine) - Closed Specialty Diagnoses / Procedures Referred By Solomon t Referred To Contact Radiology Diagnoses Lung nodule Procedures CT chest wo IV contrast Eliu Maldonado MD [address] [place] [address] Phone: tel: fax: Referral ID Status Reason Start Date Expiration Date Visits Re quested Visits Authorized [id number] Closed 01/31/2025 01/31/2026 1 1 [facility] Summary Purpose Family History Relationship Condition Age at Onset Recorded Date/T lorena Not Specified Osteoporosis Unknown Arthritis Unknown father Cardiac disease Unknown Hypertension Unknown Diabetes mellitus Unknown Relationship Condition Age at Onset Recorded Date/T lorena Not Specified Osteoporosis Unknown Arthritis Unknown father Hypertension Unknown Diabetes mellitus Unknown Congestive heart failure Unknown Cardiac disease Unknown Coronary artery disease Unknown Chronic obstructive pulmonary disease Unk nown Pneumonia Unknown Dysphagia Unknown Dementia Unknown Unknown Family Member Name Dates Details Daughter 1 Comments:Thyroid Cancer---fo llicular Status:Active Father Comments:Hypertension, demen tia and Status:Active Mother Comments:COPD, CHF, HTN, Mary betes Status:Active Unknown Family Member Name Dates Details Daughter 1 Comments:Thyroid Cancer---fo llicular Status:Active Father Comments:Hypertension, demen tia and Status:Active Mother Comments:COPD, CHF, HTN, Mary betes Status:Active Unknown Family Member Name Dates Details Daughter 1 Comments:Thyroid Cancer---fo llicular Status:Active Father Comments:Hypertension, demen tia and Status:Active Mother Comments:COPD, CHF, HTN, Mary betes Status:Active Unknown Family Member Name Dates Details Daughter 1 Comments:Thyroid Cancer---fo llicular Status:Active Father Comments:Hypertension, demen tia and Status:Active Mother Comments:COPD, CHF, HTN, Mary betes Status:Active Unknown Family Member Name Dates Details Daughter 1 Comments:Thyroid Cancer---fo llicular Status:Active Father Comments:Hypertension, demen tia and Status:Active Mother Comments:COPD, CHF, HTN, Mary betes Status:Active Unknown Family Member Name Dates Details Daughter 1 Comments:Thyroid Cancer---fo llicular Status:Active Father Comments:Hypertension, demen tia and Status:Active Mother Comments:COPD, CHF, HTN, Mary betes Status:Active Unknown Family Member Name Dates Details Daughter 1 Comments:Thyroid Cancer---fo llicular Status:Active Father Comments:Hypertension, demen tia and Status:Active Mother Comments:COPD, CHF, HTN, Mary betes Status:Active Unknown Family Member Name Dates Details Daughter 1 Comments:Thyroid Cancer---fo llicular Status:Active Father Comments:Hypertension, demen tia and Status:Active Mother Comments:COPD, CHF, HTN, Mary betes Status:Active Unknown Family Member Name Dates Details Daughter 1 Comments:Thyroid Cancer---fo llicular Status:Active Father Comments:Hypertension, demen tia and Status:Active Mother Comments:COPD, CHF, HTN, Mary betes Status:Active Unknown Family Member Name Dates Details Daughter 1 Comments:Thyroid Cancer---fo llicular Status:Active Father Comments:Hypertension, demen tia and Status:Active Mother Comments:COPD, CHF, HTN, Mary betes Status:Active Unknown Family Member Name Dates Details Daughter 1 Comments:Thyroid Cancer---fo llicular Status:Active Father Comments:Hypertension, demen tia and Status:Active Mother Comments:COPD, CHF, HTN, Mary betes Status:Active Advance Directives Documents on File Type Date Recorded 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 Expl anation Advance Directive(s) 05/24/2019 8:52 AM Advance Directive(s) 05/24/2019 8:46 AM Advance Directive(s) 04/11/2019 1:41 PM Advance Directive(s) 12/13/2018 10:20 AM Advance Directive(s) 11/29/2018 9:59 AM Advance Directive(s) 11/02/2018 11:50 AM Advance Directive Response Recorded Date/ Time Living Will No October 12, 12:00pm Power of Adult Care Manager No October 12, 2021 12:00pm Advance Directive Response Recorded Date/ Time Living Will No October 12 021 11:00am Power of Adult Care Manager No October 12, 2021 11:00am Advance Directive Response Recorded Date/ Time Living Will No December 21, 2 023 9:38am Power of Adult Care Manager No December 21, 2022 9:38am Name Dates Details Immunization Registry [place] - Effective on 05/05/2023. Expiration date unspecified Effective:05-May-2023 Name Dates Details Immunization Registry [place] - Effective on 05/05/2023. Expiration date unspecified Effective:05-May-2023 Name Dates Details Immunization Registry [place] - Effective on 05/05/2023. Expiration date unspecified Effective:05-May-2023 Name Dates Details Immunization Registry [place] - Effective on 05/05/2023. Expiration date unspecified Effective:05-May-2023 Name Dates Details Immunization Registry [place] - Effective on 05/05/2023. Expiration date unspecified Effective:05-May-2023 Name Dates Details Immunization Registry [place] - Effective on 05/05/2023. Expiration date unspecified Effective:05-May-2023 Advance Directive Response Recorded Date/ Time Living Will No December 21 023 8:38am Power of Adult Care Manager No December 21, 2022 8:38am Documents on File Type Date Recorded 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 Carrier Expl anation Power of Adult Care Manager 10/16/2024 7:58 AM Advance Directives and Livin g Will 10/16/2024 7:57 AM Documents on File Type Date Recorded 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 Carrier Expl anation Power of Adult Care Manager 10/19/2024 9:02 AM Power of Adult Care Manager 10/16/2024 7:58 AM Advance Directives and Livin g Will 10/16/2024 7:57 AM Documents on File Type Date Recorded 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 Carrier Expl anation Power of Adult Care Manager 10/19/2024 9:02 AM Power of Adult Care Manager 10/16/2024 7:58 AM Advance Directives and Livin g Will 10/16/2024 7:57 AM Advance Directive Response Recorded Date/ Time Living Will No October 12 11:00am Do you have a Healthcare Power of Adult Care Manager? No October 12, 2021 11:00am Procedure Findings Note HNO ID: [id number] Author: Patrice Shen Service: Gynecology Author Type: Physician Type: Brief Op Note Filed: 05/24/2019 1:39 PM Note Text: BRIEF OPERATIVE / PROCEDURE NOTE LOG ID: [id number] SURGERY/PROCEDURE DATE: 05/24/2019 INCISION/PROCEDURE START TIME: 10:56 AM INCISION CLOSE/PROCEDURE END TIME: 1149 AM SURGEON(S)/PROCEDURALIST(S) AND INFORMATION COORDINATOR(S): Surgeon(s) and Role: Panel 1: * Hany Wahl - Primary Panel 2: * Jessica Shen - Primary Physician Ticket Worker: Adama Flores ([place] SURGERY/PROCEDURE(S): salpingoophorectomy ANESTHESIA: General FINDINGS: two masses in the right adnexa - both c/w tube and ovary. 1 chocolate cyst present. Area initially covered with bowel adhesions. ESTIMATED BLOOD LOSS: scant SPECIMENS: tube(s) and ovary(s) COMPLICATIONS: None PRE-OP/PRE-PROCEDURE DIAGNOSIS: right adnexal mass POST-OP/POST-PROCEDURE DIAGNOSIS: same SIGNATURE: Jessica Shen MD PATIENT NAME: Brissa Jeffery DATE: May 24, 2019 TIME: 11:41 AM PAGER/CONTA (more content not included)... Note HNO ID: [id number] Author: Josh Wahl Service: General Surgery Author Type: Physician Type: Brief Op Note Filed: 05/24/2019 11:44 AM Note Text: BRIEF OPERATIVE / PROCEDURE NOTE LOG ID: [id number] SURGERY/PROCEDURE DATE: 05/24/2019 INCISION/PROCEDURE START TIME: 10:56 AM INCISION CLOSE/PROCEDURE END TIME: SURGEON(S)/PROCEDURALIST(S) AND INFORMATION COORDINATOR(S): Surgeon(s) and Role: Panel 1: * Hany Wahl - Primary Panel 2: * Jessica Shen - Primary Physician Ticket Worker: Adama Flores ([place]) SURGERY/PROCEDURE(S): Laparoscopic appendectomy, laparoscopic bilateral salpingo-oophrectomy ANESTHESIA: General FINDINGS: normal appendix, bilateral ovarian cysts ESTIMATED BLOOD LOSS: minimal SPECIMENS: appendix, BSO COMPLICATIONS: None PRE-OP/PRE-PROCEDURE DIAGNOSIS: same POST-OP/POST-PROCEDURE DIAGNOSIS: same SIGNATURE: Hany Wahl MD PATIENT NAME: Brissa Jeffery DATE: May 24, 2019 TIME: 11:43 AM PAGER/CONTACT #: Chief Complaint and Reason for Visit Chief Complaint 2 MO FU 6 MO - NO LABS LABS FU - Urinary tract infection 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 Reason for Visit Fatty liver GERD (gastroesophageal reflux disease) Obesity Spasm of bowel Thrombocytopenia Pelvic pain Back pain Michael tumor of right ovary DONNA (stress urinary incontinence, female) UTI (urinary tract infection) Encounter for routine gynecological examination Chief Complaint 2 MO FU 6 MO - NO LABS LABS FU - Urinary tract infection 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 3 M FU Reason for Visit Fatty liver GERD (gastroesophageal reflux disease) Obesity Spasm of bowel Thrombocytopenia Pelvic pain Back pain Michael tumor of right ovary UTI (urinary tract infection) DONNA (stress urinary incontinence, female) Encounter for routine gynecological examination Chronic back pain Essential hypertension 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 LINDSAY (obstructive sleep apnea) DONNA (stress urinary incontinence, female) Chief Complaint 2 MO FU 6 MO - NO LABS LABS FU - Urinary tract infection 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 3 M FU SCREENING Reason for Visit Fatty liver GERD (gastroesophageal reflux disease) Obesity Spasm of bowel Thrombocytopenia Pelvic pain Back pain Michael tumor of right ovary UTI (urinary tract infection) DONNA (stress urinary incontinence, female) Encounter for routine gynecological examination Chronic back pain Essential hypertension 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 LINDSAY (obstructive sleep apnea) DONNA (stress urinary incontinence, female) Chief Complaint MULTINODULAR GOITER, HYPOTHYROIDISM 6 m fu FU THYROID US 11/04 Reason for Visit Muscle cramps at [facility]t Chronic sinusitis Essential hypertension LINDSAY (obstructive sleep apnea) Barretts esophagus GERD (gastroesophageal reflux disease) NAFLD (nonalcoholic fatty liver disease) Hypothyroidism Multinodular goiter Chief Complaint MULTINODULAR GOITER, HYPOTHYROIDISM 6 m fu FU THYROID US 11/04 1 Y FU 1 Y FU F/U NAFLD Reason for Visit Muscle cramps at [facility]t Chronic sinusitis Essential hypertension LINDSAY (obstructive sleep apnea) Barretts esophagus GERD (gastroesophageal reflux disease) NAFLD (nonalcoholic fatty liver disease) Hypothyroidism Multinodular goiter Insulin resistance 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 Metabolic syndrome Essential hypertension Chief Complaint 6 M FU 2 WK FU MORBID OBESITY Reason for Visit Hypothyroidism Metabolic syndrome Obesity Barretts esophagus NAFLD (nonalcoholic fatty liver disease) HUGGINS (nonalcoholic steatohepatitis) Obesity Chief Complaint 6 M FU 2 WK FU MORBID OBESITY 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 MORBID OBESITY 1YR LABS LABS Reason for Visit Hypothyroidism Metabolic syndrome Obesity Barretts esophagus NAFLD (nonalcoholic fatty liver disease) HUGGINS (nonalcoholic steatohepatitis) Obesity Encounter for routine gynecological examination Thrombocytopenia Chief Complaint 6 MO FU E-ORDER HYPOTHYROIDISM D/T HASHIMOTOS'S THYROIDITIS 1 Y FU Reason for Visit Barretts esophagus NAFLD (nonalcoholic fatty liver disease) Obesity Essential hypertension Metabolic syndrome Dilated aortic root Chief Complaint 6 MO FU E-ORDER HYPOTHYROIDISM D/T HASHIMOTOS'S THYROIDITIS 1 Y FU 8 M FU, RS 0211 Reason for Visit Barretts esophagus NAFLD (nonalcoholic fatty liver disease) Obesity Essential hypertension Metabolic syndrome Dilated aortic root 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 Metabolic syndrome Multinodular goiter Obesity Chief Complaint 6 MO FU E-ORDER HYPOTHYROIDISM D/T HASHIMOTOS'S THYROIDITIS 1 Y FU 8 M FU, RS 02 DILATED AORTIC ROOT POSSIBLE BIOPSY MULTINODULAR GOITER Reason for Visit Barretts esophagus NAFLD (nonalcoholic fatty liver disease) Obesity Essential hypertension Metabolic syndrome Dilated aortic root 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 Metabolic syndrome Multinodular goiter Obesity Hypothyroidism Multinodular goiter Chief Complaint Admit Date 1 Y FU--Barretts esophagus August 13, 2025 11:29am 1 YEAR - LABS August 13, 2025 3 :09pm LABS August 13, 2025 3 :15pm Reason for Visit Admit Date Atypical chest pain August 13, 2025 1 1:29am Insulin resistance August 13, 2025 1 1:29am Chronic sinusitis August 13, 2025 1 1:29am NAFLD (nonalcoholic fatty liver disease) August 13, 2025 11:29am Thrombocytopenia August 13, 2025 3 :09pm Skin cancer August 13, 2025 3 :09pm Reason for Referral Specialty Diagnoses / Procedures Referred By Solomon mcmullen Referred To Contact Radiology Diagnoses At high risk for breast cancer Breast skin changes Procedures Bilateral breast MR with and without contrast Vonnie Garza MD [address] [place] [address] [place] [id number] Referral ID Status Reason Start Date Expiration Date Visits Re quested Visits Authorized [id number] Closed 04/12/2024 04/12/2025 1 1 Additional Source Comments INFORMATION SOURCE (unrecogn ized section and content) DATE CREATED AUTHOR 04/18/2018 [facility] DATE CREATED AUTHOR AUTHOR'S ORGANIZ ATION 04/27/2018 [facility] DATE CREATED AUTHOR AUTHOR'S ORGANIZ ATION 05/05/2018 [facility] DATE CREATED AUTHOR AUTHOR'S ORGANIZ ATION 10/11/2019 [facility] DATE CREATED AUTHOR AUTHOR'S ORGANIZ ATION 05/12/2020 [facility] DATE CREATED AUTHOR AUTHOR'S ORGANIZ ATION 11/27/2021 [facility] DATE CREATED AUTHOR AUTHOR'S ORGANIZ ATION 01/31/2023 [facility] DATE CREATED AUTHOR AUTHOR'S ORGANIZ ATION 04/14/2024 [facility] DATE CREATED AUTHOR AUTHOR'S ORGANIZ ATION 05/31/2025 [facility] DATE CREATED AUTHOR AUTHOR'S ORGANIZ ATION 08/07/2025 [facility] DATE CREATED AUTHOR AUTHOR'S ORGANIZ ATION 08/24/2025 [facility] Source Comments (unrecognize d section and content) In the event this informatio n is protected by the Federal Confidentiality of Alcohol and Drug Abuse Patient Records regulations: The Federal rules restrict any use of the information to criminally investigate or prosecute any alcohol or drug abuse patient.[facility] HealthIn the event this information is protected by the Federal Confidentiality of Alcohol and Drug Abuse Patient Records regulations: The Federal rules restrict any use of the information to criminally investigate or prosecute any alcohol or drug abuse patient.[facility] HealthIn the event this information is protected by the Federal Confidentiality of Alcohol and Drug Abuse Patient Records regulations: The Federal rules restrict any use of the information to criminally investigate or prosecute any alcohol or drug abuse patient.[facility] HealthIn the event this information is protected by the Federal Confidentiality of Alcohol and Drug Abuse Patient Records regulations: The Federal rules restrict any use of the information to criminally investigate or prosecute any alcohol or drug abuse patient.[facility] HealthIn the event this information is protected by the Federal Confidentiality of Alcohol and Drug Abuse Patient Records regulations: The Federal rules restrict any use of the information to criminally investigate or prosecute any alcohol or drug abuse patient.[facility] HealthIn the event this information is protected by the Federal Confidentiality of Alcohol and Drug Abuse Patient Records regulations: The Federal rules restrict any use of the information to criminally investigate or prosecute any alcohol or drug abuse patient.[facility] HealthIn the event this information is protected by the Federal Confidentiality of Alcohol and Drug Abuse Patient Records regulations: The Federal rules restrict any use of the information to criminally investigate or prosecute any alcohol or drug abuse patient.[facility] HealthIn the event this information is protected by the Federal Confidentiality of Alcohol and Drug Abuse Patient Records regulations: The Federal rules restrict any use of the information to criminally investigate or prosecute any alcohol or drug abuse patient.[facility] HealthIn the event this information is protected by the Federal Confidentiality of Alcohol and Drug Abuse Patient Records regulations: The Federal rules restrict any use of the information to criminally investigate or prosecute any alcohol or drug abuse patient.[facility] HealthIn the event this information is protected by the Federal Confidentiality of Alcohol and Drug Abuse Patient Records regulations: The Federal rules restrict any use of the information to criminally investigate or prosecute any alcohol or drug abuse patient.[facility] Reason for Visit (unrecogniz ed section and content) 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 Annual Exam CPE. Pt states she h as been having a shoulder pain on right side, not sure if its related to sleeping, has been there for awhile. Specialty Diagnoses / Procedures Referred By Solomon mcmullen Referred To Contact Family Medicine Diagnoses Occasionally has difficulty accessing primary care provider Procedures [place] OFFICE/OUTPATIENT NEW HIGH MDM 60 MINUTES Vonnie Garza MD [address] [address] [place] [address] [facility] [address] [facility] [address] [place] [address] Referral ID Status Reason Start Date Expiration Date Visits Requested Visits Authorized [id number] Pending Review Specialty Services Required 04/12/2024 04/12/2025 1 1 Referral ID Status Reason Start Date Expiration Date V isits Requested Visits Authorized [id number] Closed Specialty Services Required 04/12/2024 04/12/2025 1 1 Specialty Diagnoses / Procedures Referred By Solomon mcmullen Referred To Contact Radiology Diagnoses At high risk for breast cancer Breast skin changes Procedures Bilateral breast MR with and without contrast Vonnie Garza MD [address] [place] [address] Referral ID Status Reason Start Date Expiration Date Visits Re quested Visits Authorized [id number] Closed 04/12/2024 04/12/2025 1 1 Reason Comments Follow-up Weight, and BP.Sees GI, endo, hematology, pulmonology, GYNWould like to discuss bloodwork. Seeing pulmonology next week, new inhaler from him. She uses bipap but doesn't think it helps. (Mother had copd, notices she is having a lot of same symptoms) Reason Comments Gynecologic Exam Reason Comments Follow-up 4 week follow up Reason Onset Date Comments Appointment Request 06/18/2024 Reason Comments New Patient Cough Reason Comments Radio Gen RMP Specialty Diagnoses / Procedures Referred By Solomon t Referred To Contact XR IMAGING Diagnoses Pain Procedures XR HAND GENERAL 3V PA/LAT/OBL LEFT X-RAY HAND MINIMUM 3 VIEWS Deandre Will, PAMauriceC [address] [address] [place] [id number] Referral ID Status Reason Start Date Expiration Date V isits Requested Visits Authorized [id number] Closed Auto-Generate d Referral 09/25/2021 10/25/2022 1 1 Reason Comments Shortness of Breath Sleep Apnea Reason Onset Date Comments Other 08/21/2024 Oxymetry order Reason Comments Dizziness Pt in with c/o feel ing light headed and flushed in the morning when I wake up. States I have been using a CPAP machine for 5 years and I recently switched to an auto BiPAP and since then, every morning I have not felt right. States reasoning for switching to bipap was due to high CO2 Reason Onset Date Comments Referral 09/03/2024 Reason Comments ER Follow-up ED follow up from for dizziness related to sleep apnea. Pt reports she continues to have dizziness that gradually improves by the times she goes to bed, worse in the morning. Reason Onset Date Comments Other 09/07/2024 Reason Onset Date Comments ER Follow-up 09/03/2024 Reason Comments Follow-up Reason Comments Follow-up 3 month follow up Reason Comments Follow-up Reason Comments Care Coordination Lung Nodule Review C onference Recommendations Reason Onset Date Comments Test Scheduling 11/20/2024 CT Chest Authori zation Reason Onset Date Comments Care Coordination 11/20/2024 Lung Nodule Re view Conference Recs Reason Comments 6 Month Follow-up HR follow up-pt stat es that she has a small spot on the side of the left breast she would like to have checked out Reason Comments Discuss Medications Discuss medications. Reason Onset Date Comments Med Refill 12/23/2024 Reason Comments Med Change Request Reason Comments New Patient Shoulder Pain Right Specialty Diagnoses / Procedures Referred By Solomon mcmullen Referred To Contact Sports Medicine Diagnoses Pain of right scapula Procedures [place] OFFICE/OUTPATIENT NEW HIGH MDM 60 MINUTES Sudhir Pedraza DO [address] [place] [address] Phone: tel: fax: [facility] [place] [address] [place] [address] Phone: tel: fax: Referral ID Status Reason Start Date Expiration Date Visits Requested Visits Authorized [id number] Pending Review Specialty Services Required 01/15/2025 01/15/2026 1 1 Reason Comments Follow-up 6 week follow up Reason Comments Follow-up Pt had a CT on Reason Comments PT Discharge Reason Comments Annual Exam Physical Ear Fullness Right ear fullness c ausing dizziness x1 month. Fullness and dizziness has mostly subsided Hot Flashes Patient reports feel ing hot all the time, possibly feverish Reason Comments New Patient Wants to discuss RFA vs surgery for her thyroid nodules. Denies any complaints. Specialty Diagnoses / Procedures Referred By Solomon mcmullen Referred To Contact Surgical Oncology Diagnoses Thyroid Nodule - interested in RFA. Procedures [facility] SURGERY Self, Self Demetri Cartagena MD [address] [facility] 10[address] [place] [address] Phone: tel: fax: Referral ID Status Reason Start Date Expiration Date V isits Requested Visits Authorized [id number] Pending Review 05/28/2025 06/22/2026 1 1 Reason Comments 6 Month Follow-up Denies any breast pa in or concerns New to provider, used to see Dr. Garza. Reason Comments Annual Exam Reason Onset Date Comments Prior Authorization 08/05/2025 PA required- -ct chest Reason Onset Date Comments Results 06/12/2025 Care Teams (unrecognized sec tion and content) Granulator Tender Relationship Specialty Start Date End Date Matias Alvarez DO [address] [place] [address] PCP - General Family Practice 12/01/21 Team Status: Active Member Role Status Dates Dr. Kendall Curry MD Primary Care Provider Active Team Status: Inactive Member Role Status Dates Dr. Kendall Curry MD Primary Care P rovider, Attending Provider, Referring Provider Active Team Status: Active Member Role Status Dates Dr. Kendall Curry MD Primary Care Provider, Refer ring Provider Active Dr. Bakari Gleason MD Attending Provider Active Team Status: Inactive Member Role Status Dates Dr. Kendall Curry MD Primary Care Provider, Refer ring Provider Active Omaira Arriola FORGING MACHINE OPERATOR, FORGING MACHINE OPERATOR-C Attending Provider Active Team Status: Inactive Member Role Status Dates Dr. Kendall Curry MD Primary Care Provider Active Dr. Bakari Gleason MD Attending Provider Active Team Status: Active Member Role Status Dates Esperanza FUENTES MD Primary Care Provider Active Team Status: Inactive Member Role Status Dates Dr. Kendall Curry MD Primary Care Provider, Refer ring Provider Active Kisha Pennington PA, PA Attending Provider Active Team Status: Inactive Member Role Status Dates Dr. Kendall Curry MD Primary Care Provider, Refer ring Provider Active Dr. Devin Fuentes MD Attending Provider Active Team Status: Inactive Member Role Status Dates Dr. Kendall Curry MD Primary Care Provider, Refer ring Provider Active Dr. Bakari Gleason MD Attending Provider Active Team Status: Inactive Member Role Status Dates Omaira Arriola FORGING MACHINE OPERATOR, FORGING MACHINE OPERATOR-C Attending Provider, Referrin g Provider Active Esperanza FUENTES MD Primary Care Provider Active Granulator Tender Relationship Specialty Start Date End Date Matias Alvarez DO [address] [facility] [address] [address] PCP - General Family Medicine 12/01/21 Team Status: Active Member Role Status Dates Dr. Esperanza Moreno MD Primary Care Provider Active Team Status: Inactive Member Role Status Dates Dr. Kendall Curry MD Primary Care Provider, Refer ring Provider Active Dr. Keny Gomez DO Attending Provider Active Team Status: Inactive Member Role Status Dates Dr. Kendall Curry MD Referring Provider Active Dr. Devin Fuentes MD Attending Provider Active Esperanza FUENTES MD Primary Care Provider Active Team Status: Inactive Member Role Status Dates Dr. Esperanza Moreno MD Primary Care Provi arun, Attending Provider, Referring Provider Active Granulator Tender Relationship Specialty Start Date End Date Matias Alvarez, DO [address] [facility] [address] [place] [address] PCP - General Family Medicine 12/01/21 Team Status: Inactive Member Role Status Dates Dr. Kendall Curry MD Referring Provider Active Dr. Erma Arndt MD Attending Provider Active Dr. Esperanza Moreno MD Primary Care Provider Active Team Status: Inactive Member Role Status Dates Dr. Joyce Kelley MD Attending Provider Active Dr. Esperanza Moreno MD Primary Care Provider, Referring Provider Active Team Status: Active Member Role Status Dates Dr. Ari Lundberg MD Primary Care Provider Active Dr. Joyce Kelley MD Attending Provider, Referrin g Provider Active Team Status: Inactive Member Role Status Dates Dr. Erma Arndt MD Attending Provider, Referr ing Provider Active Dr. Esperanza Moreno MD Primary Care Provider Active Granulator Tender Relationship Specialty Start Date End Date Matias Alvarez, DO [address] [place] [address] PCP - General Family Medicine 12/01/21 Team Status: Inactive Member Role Status Dates Dr. Esperanza Moreno MD Primary Care Provider Active Dr. Devin Fuentes MD Attending Provider Active Team Status: Inactive Member Role Status Dates Esperanza FUENTES MD Referring Provider Active Dr. Keny Gomez DO Attending Provider Active Dr. Esperanza Moreno MD Primary Care Provider Active Team Status: Inactive Member Role Status Dates Dr. Esperanza Moreno MD Primary Care Provider, Referring Provider Active Kisha Pennington PA, PA Attending Provider Active Team Status: Active Member Role Status Dates Dr. Esperanza Moreno MD Primary Care Provider Active Dr. Bakari Gleason MD Attending Provider, Referring P christian Active Team Status: Inactive Member Role Status Dates Dr. Esperanza Moreno MD Primary Care Provider Active Dr. Devin Fuentes MD Attending Provider, Referring Provi arun Active Team Status: Inactive Member Role Status Dates Esperanza FUENTES MD Referring Provider Active Dr. Devin Fuentes MD Attending Provider Active Dr. Esperanza Moreno MD Primary Care Provider Active Team Status: Inactive Member Role Status Dates Dr. Esperanza Moreno MD Primary Care Provider Active Dr. Bakari Gleason MD Attending Provider, Referring P christian Active Team Status: Inactive Member Role Status Dates Dr. Esperanza Moreno MD Primary Care Provider, Referring Provider Active Dr. Bakari Gleason MD Attending Provider Active Team Status: Active Member Role Status Dates Dr. Esperanza Moreno MD Primary Care Provider Active Dr. Adolfo Barrow MD Attending Provider Active Team Status: Inactive Member Role Status Dates Dr. Esperanza Moreno MD Primary Care Provider Active Kisha Pennington PA, PA Attending Provider, Referr ing Provider Active Granulator Tender Relationship Specialty Start Date End Date Matias Alvarez DO [address] [facility] [address] [place] [address] PCP - General Family Medicine 12/01/21 Granulator Tender Relationship Specialty Start Date End Date Matias Alvarez DO [address] [facility] [address] [place], [place] [id number] PCP - General Family Medicine 12/01/21 Granulator Tender Relationship Specialty Start Date End Date Esperanza Moreno MD [address] [place] [address] PCP - General Internal Medicine 04/12/24 Granulator Tender Relationship Specialty Start Date End Date Esperanza Moreno MD [address] [facility] [address] [place] [address] PCP - General Internal Medicine 04/12/24 Granulator Tender Relationship Specialty Start Date End Date Esperanza Moreno MD [address] [facility] [address] [place] [address] PCP - General Internal Medicine 04/12/24 Granulator Tender Relationship Specialty Start Date End Date Esperanza Moreno MD [address] [place] [phone] PCP - General Internal Medicine 04/12/24 Granulator Tender Relationship Specialty Start Date End Date Esperanza Moreno MD [address] [place] [phone] PCP - General Internal Medicine 04/12/24 Granulator Tender Relationship Specialty Start Date End Date Esperanza Moreno MD [address] [place] [phone] PCP - General Internal Medicine 04/12/24 Granulator Tender Relationship Specialty Start Date End Date Esperanza Moreno MD [address] [place] [phone] PCP - General Internal Medicine 04/12/24 05/16/24 Sudhir Pedraza DO [address] [place] [address] [place] [address] PCP - General Internal Medicine 05/17/24 Granulator Tender Relationship Specialty Start Date End Date Sudhir Pedraza DO [address] [place] [address] [place] [address] PCP - General Internal Medicine 05/17/24 Granulator Tender Relationship Specialty Start Date End Date Sudhir Pedraza DO [address] [place] [address] PCP - General Internal Medicine 05/17/24 Granulator Tender Relationship Specialty Start Date End Date Sudhir Pedraza DO [address] [place] [address] [place] [address] PCP - General Internal Medicine 05/17/24 Granulator Tender Relationship Specialty Start Date End Date Sudhir Pedraza DO [address] [place] [address] [place] [address] PCP - General Internal Medicine 05/17/24 Granulator Tender Relationship Specialty Start Date End Date Keila Sudhir, DO [address] [place] [address] [place] [address] PCP - General Internal Medicine 05/17/24 Granulator Tender Relationship Specialty Start Date End Date Keila Sudhir, DO [address] [place] [address] PCP - General Internal Medicine 05/17/24 Granulator Tender Relationship Specialty Start Date End Date Sudhir Pedraza DO [address] [place] [address] [place] [address] PCP - General Internal Medicine 05/17/24 Granulator Tender Relationship Specialty Start Date End Date Ari Lundberg MD PCP - General Internal Medicine 07/15/20 11/30/21 Granulator Tender Relationship Specialty Start Date End Date Keila, Sudhir [address] [place] [address] [place] [address] PCP - General Internal Medicine 05/17/24 Granulator Tender Relationship Specialty Start Date End Date Sudhir Pedraza DO [address] [place] [place] [address] PCP - General Internal Medicine 05/17/24 Granulator Tender Relationship Specialty Start Date End Date Sudhir Pedraza DO [address] [place] [address] PCP - General Internal Medicine 05/17/24 Granulator Tender Relationship Specialty Start Date End Date Sudhir Pedraza DO [address] [place] [address] PCP - General Internal Medicine 05/17/24 Granulator Tender Relationship Specialty Start Date End Date Sudhir Pedraza DO [address] [place] [address] [place] [address] PCP - General Internal Medicine 05/17/24 Granulator Tender Relationship Specialty Start Date End Date Sudhir Pedraza DO [address] [place] [place] [address] PCP - General Internal Medicine 05/17/24 Granulator Tender Relationship Specialty Start Date End Date Sudhir Pedraza DO [address] [place] [address] PCP - General Internal Medicine 05/17/24 Granulator Tender Relationship Specialty Start Date End Date Sudhir Pedraza DO [address] [place] [address] PCP - General Internal Medicine 05/17/24 Granulator Tender Relationship Specialty Start Date End Date Sudhir Pedraza DO [address] [place] [address] [place] [address] PCP - General Internal Medicine 05/17/24 Granulator Tender Relationship Specialty Start Date End Date Sudhir Pedraza DO [address] [place] [place] [address] PCP - General Internal Medicine 05/17/24 Granulator Tender Relationship Specialty Start Date End Date Sudhir Pedraza DO [address] [place] [address] PCP - General Internal Medicine 05/17/24 Granulator Tender Relationship Specialty Start Date End Date Sudhir Pedraza DO [address] [place] [address] [place] [address] PCP - General Internal Medicine 05/17/24 Granulator Tender Relationship Specialty Start Date End Date Sudhir Pedraza DO [address] [place] [address] [place] [address] PCP - General Internal Medicine 05/17/24 Granulator Tender Relationship Specialty Start Date End Date Sudhir Pedraza DO [address] [place] [address] [place] [address] PCP - General Internal Medicine 05/17/24 Granulator Tender Relationship Specialty Start Date End Date Sudhir Pedraza DO [address] [place] [address] [place] [address] PCP - General Internal Medicine 05/17/24 Granulator Tender Relationship Specialty Start Date End Date Sudhir Pedraza DO [address] [place] [address] [place] [address] PCP - General Internal Medicine 05/17/24 Granulator Tender Relationship Specialty Start Date End Date Sudhir Pedraza DO [address] [facility] [address] [place] [address] PCP - General Internal Medicine 05/17/24 Vitaly Sykes MD [address] [facility] [address] [place] [address] Ophthalmology 01/15/25 Keny Gomez [address] [place] [address] Gastroenterology 01/15/25 Eliu Maldonado MD [address] [facility] [address] [place] [address] Surgeon Pulmonology 01/15/25 Kisha Pennington PA [address], [facility] [address] [place], [place] [address] Physician Ticket Worker Physician Ticket Worker 01/15/25 Devin Fuentes MD [address] [facility] [address] [place] [address] Endocrinology 01/15/25 Angeles Peacock MD [address] [place] [address] Urology 01/15/25 Bakari Gleason MD [address] [place] [address] Referring Physician General Surgery 01/15/25 Granulator Tender Relationship Specialty Start Date End Date Sudhir Pedraza DO [address] [place] [address] PCP - General Internal Medicine 05/17/24 Vitaly Sykes MD [address] [facility] [address] [place] [address] Ophthalmology 01/15/25 Keny Gomez [address] [place], [place] [address] Gastroenterology 01/15/25 Eliu Maldonado MD [address] [place] [address] Surgeon Pulmonology 01/15/25 Kisha Pennington PA [address], [address] [place] [address] Physician Ticket Worker Physician Ticket Worker 01/15/25 Devin Fuentes MD [address] [place] [address] Endocrinology 01/15/25 Angeles Peacock MD [address] [place] [address] Urology 01/15/25 Bakari Gleason MD [address] [place] [address] Referring Physician General Surgery 01/15/25 Granulator Tender Relationship Specialty Start Date End Date Sudhir Pedraza DO [address] [place] [place] [address] PCP - General Internal Medicine 05/17/24 Vitaly Sykes MD [address] [facility] [address] [place] [address] Ophthalmology 01/15/25 Keny Gomez [address] [place], [place] [address] Gastroenterology 01/15/25 Eliu Maldonado MD [address] [place] [address] Surgeon Pulmonology 01/15/25 Kisha Pennington PA [address], [address] [place], [place] [address] Physician Ticket Worker Physician Ticket Worker 01/15/25 Devin Fuentes MD [address] [place] [address] Endocrinology 01/15/25 Angeles Peacock MD [address] [place] [address] Urology 01/15/25 Bakari Gleason MD [address] [place] [address] Referring Physician General Surgery 01/15/25 Granulator Tender Relationship Specialty Start Date End Date Sudhir Pedraza DO [address] [place] [address] PCP - General Internal Medicine 05/17/24 Vitaly Sykes MD [address] [address] [place] [address] Ophthalmology 01/15/25 Keny Gomez [address] [place] [address] Gastroenterology 01/15/25 Eliu Maldonado MD [address] [place], [place] [address] Surgeon Pulmonology 01/15/25 Kisha Pennington PA [address], [address] [place], [place] [address] Physician Ticket Worker Physician Ticket Worker 01/15/25 Devin Fuentes MD [address] [facility] [address] [place] [address] Endocrinology 01/15/25 Angeles Peacock MD [address] [place] [address] Urology 01/15/25 Bakari Gleason MD [address] [place] [address] Referring Physician General Surgery 01/15/25 Granulator Tender Relationship Specialty Start Date End Date Sudhir Pedraza DO [address] [facility] [address] [place], [place] [address] PCP - General Internal Medicine 05/17/24 Vitaly Sykes MD [address] [facility] [address] [place] [address] Ophthalmology 01/15/25 Keny Gomez [address] [place], [place] [address] Gastroenterology 01/15/25 Eliu Maldonado MD [address] [place], [place] [address] Surgeon Pulmonology 01/15/25 Kisha Pennington PA [address], [address] [place] [address] Physician Ticket Worker Physician Ticket Worker 01/15/25 Devin Fuentes MD [address] [facility] [address] [place] [address] Endocrinology 01/15/25 Angeles Peacock MD [address] [facility] [address] [place] [address] Urology 01/15/25 Bakari Gleason MD [address] [place] [address] Referring Physician General Surgery 01/15/25 Granulator Tender Relationship Specialty Start Date End Date Sudhir Pedraza DO [address] [place] [address] PCP - General Internal Medicine 05/17/24 Vitaly Sykes MD [address] [facility] [address] [place] [address] Ophthalmology 01/15/25 Keny Gomez [address] [place], [place] [address] Gastroenterology 01/15/25 Eilu Maldonado MD [address] [place] [address] Surgeon Pulmonology 01/15/25 Kisha Pennington PA [address], [address] [place], [place] [address] Physician Ticket Worker Physician Ticket Worker 01/15/25 Devin Fuentes MD [address] [facility] [address] [place], [place] [address] Endocrinology 01/15/25 Angeles Peacock MD [address] [place] [address] Urology 01/15/25 Bakari Gleason MD [address] [place] [address] Referring Physician General Surgery 01/15/25 Granulator Tender Relationship Specialty Start Date End Date Sudhir Pedraza DO [address] [place], [place] [address] PCP - General Internal Medicine 05/17/24 Vitaly Sykes MD [address] [facility] [address] [place] [address] Ophthalmology 01/15/25 Keny Gomez [address] [place] [address] Gastroenterology 01/15/25 Eliu Maldonado MD [address] [place], [place] [address] Surgeon Pulmonology 01/15/25 Kisha Pennington PA [address], [address] [place] [address] Physician Ticket Worker Physician Ticket Worker 01/15/25 Devin Fuentes MD [address] [place] [address] Endocrinology 01/15/25 Angeles Peacock MD [address] [facility] [address] [place] [address] Urology 01/15/25 Bakari Gleason MD [address] [place] [address] Referring Physician General Surgery 01/15/25 Granulator Tender Relationship Specialty Start Date End Date Sudhir Pedraza DO [address] [facility] [address] [place], [place] [address] PCP - General Internal Medicine 05/17/24 Vitaly Sykes MD [address] [facility] [address] [place], [place] [address] Ophthalmology 01/15/25 Keny Gomez [address] [place], [place] [address] Gastroenterology 01/15/25 Eliu Maldonado MD [address] [place], [place] [address] Surgeon Pulmonology 01/15/25 Kisha Pennington PA [address] [place], [place] [address] Physician Ticket Worker Physician Ticket Worker 01/15/25 Devin Fuentes MD [address] [place] [address] Endocrinology 01/15/25 Angeles Peacock MD [address] [place] [address] Urology 01/15/25 Bakari Gleason MD [address] [place] [address] Referring Physician General Surgery 01/15/25 Granulator Tender Relationship Specialty Start Date End Date Sudhir Pedraza DO [address] [facility] [address] [place] [address] PCP - General Internal Medicine 05/17/24 Vitaly Sykes MD [address] [facility] [address] [place] [address] Ophthalmology 01/15/25 Keny Gomez [address], [address] [place] [address] Gastroenterology 01/15/25 Eliu Maldonado MD [address] [place] [address] Surgeon Pulmonology 01/15/25 Kisha Pennington PA [address], [facility] [address] [place], [place] [address] Physician Ticket Worker Physician Ticket Worker 01/15/25 Devin Fuentes MD [address] [facility] [address] [place], [place] [address] Endocrinology 01/15/25 Angeles Peacock MD [address] [place] [address] Urology 01/15/25 Bakari Gleason MD [address] [place] [address] Referring Physician General Surgery 01/15/25 Granulator Tender Relationship Specialty Start Date End Date Sudhir Pedraza DO [address] [facility] [address] [place] [address] PCP - General Internal Medicine 05/17/24 Vitaly Sykes MD [address] [facility] [address] [place], [place] [address] Ophthalmology 01/15/25 Keny Gomez [address] [place], [place] [address] Gastroenterology 01/15/25 Eliu Maldonado MD [address] [facility] [address] [place] [address] Surgeon Pulmonology 01/15/25 Kisha Pennington PA [address] [place], [place] [address] Physician Ticket Worker Physician Ticket Worker 01/15/25 Devin Fuentes MD [address] [facility] [address] [place] [address] Endocrinology 01/15/25 Angeles Peacock MD [address] [place] [address] Urology 01/15/25 Bakari Gleason MD [address] [place] [address] Referring Physician General Surgery 01/15/25 Granulator Tender Relationship Specialty Start Date End Date Sudhir Pedraza DO [address] [facility] [address] [place] [address] PCP - General Internal Medicine 05/17/24 Vitaly Sykes MD [address] [facility] [address] [place], [place] [address] Ophthalmology 01/15/25 Keny Gomez [address], [address] [place], [place] [address] Gastroenterology 01/15/25 Eliu Maldonado MD [address] [facility] [address] [place] [address] Surgeon Pulmonology 01/15/25 Kisha Pennington PA [address], [facility] [address] [place], [place] [phone] Physician Ticket Worker Physician Ticket Worker 01/15/25 Devin Fuentes MD [address] [facility] [address] [place], [place] [address] Endocrinology 01/15/25 Angeles Peacock MD [address] [place] [address] Urology 01/15/25 Bakari Gleason MD [address] [place] [address] Referring Physician General Surgery 01/15/25 Granulator Tender Relationship Specialty Start Date End Date KeilaLindsaySudhirDO [address] [place] [address] PCP - General Internal Medicine 05/17/24 Vitaly Sykes MD [address] [facility] [address] [place] [address] Ophthalmology 01/15/25 Keny Gomez [address], [address] [place] [address] Gastroenterology 01/15/25 Eliu Maldonado MD [address] [place] [address] Surgeon Pulmonology 01/15/25 Kisha Pennington PA [address] [place] [address] Physician Ticket Worker Physician Ticket Worker 01/15/25 Devin Fuentes MD [address] [facility] [address] [place] [address] Endocrinology 01/15/25 Angeles Peacock MD [address] [place] [address] Urology 01/15/25 Bakari Gleason MD [address] [place] [address] Referring Physician General Surgery 01/15/25 Omi Krueger MD [address] [facility] [address] [place] [address] Consulting Physician Gynecologic Oncology 05/28/25 Granulator Tender Relationship Specialty Start Date End Date Sudhir Pedraza DO [address] [place] [address] PCP - General Internal Medicine 05/28/25 Granulator Tender Relationship Specialty Start Date End Date Sudhir Pedraza DO [address] [place] [address] PCP - General Internal Medicine 05/17/24 Vitaly Sykes MD [address] [facility] [address] [place] [address] Ophthalmology 01/15/25 Keny Gomez [address] [place], [place] [address] Gastroenterology 01/15/25 Eliu Maldonado MD [address] [facility] [address] [place] [address] Surgeon Pulmonology 01/15/25 Kisha Pennington PA [address] [place], [place] [address] Physician Ticket Worker Physician Ticket Worker 01/15/25 Devin Fuentes MD [address] [place], [place] [address] Endocrinology 01/15/25 Angeles Peacock MD [address] [place] [address] Urology 01/15/25 Bakari Gleason MD [address] [place] [address] Referring Physician General Surgery 01/15/25 Omi Krueger MD [address] [facility] [address] [place] [address] Consulting Physician Gynecologic Oncology 05/28/25 Granulator Tender Relationship Specialty Start Date End Date Sudhir Pedraza DO [address] [place] [address] PCP - General Internal Medicine 05/17/24 Vitaly Sykes MD [facility] [address] [place] [address] Ophthalmology 01/15/25 Keny Gomez [address], [address] [place] [address] Gastroenterology 01/15/25 Eliu Maldonado MD [address] [place] [address] Surgeon Pulmonology 01/15/25 Kisha Pennington PA [address], [address] [place], [place] [address] Physician Ticket Worker Physician Ticket Worker 01/15/25 Devin Fuentes MD [address] [facility] [address] [place], [place] [address] Endocrinology 01/15/25 Angeles Peacock MD [address] [place] [address] Urology 01/15/25 Bakari Gleason MD [address] [place] [address] Referring Physician General Surgery 01/15/25 Omi Krueger MD [address] [facility] [address] [place], [place] [address] Consulting Physician Gynecologic Oncology 05/28/25 Granulator Tender Relationship Specialty Start Date End Date Sudhir Pedraza DO [address] [facility] [address] [place], [place] [address] PCP - General Internal Medicine 05/17/24 Vitaly Sykes MD [address] [facility] [address] [place] [address] Ophthalmology 01/15/25 Keny Gomez [address] [place], [place] [address] Gastroenterology 01/15/25 Eliu Maldonado MD [address] [place] [address] Surgeon Pulmonology 01/15/25 Kisha Pennington PA [address] [place] [address] Physician Ticket Worker Physician Ticket Worker 01/15/25 Devin Fuentes MD [address] [place] [address] Endocrinology 01/15/25 Angeles Peacock MD [address] [place] [address] Urology 01/15/25 Bakari Gleason MD [address] [place] [address] Referring Physician General Surgery 01/15/25 Omi Krueger MD [address] [facility] [address] [place], [place] [address] Consulting Physician Gynecologic Oncology 05/28/25 Granulator Tender Relationship Specialty Start Date End Date Sudhir Pedraza DO [address] [facility] [address] [place], [place] [address] PCP - General Internal Medicine 05/17/24 Vitaly Sykes MD [address] [facility] [address] [place], [place] [address] Ophthalmology 01/15/25 Keny Gomez [address], [address] [place], [place] [address] Gastroenterology 01/15/25 Eliu Maldonado MD [address] [place] [address] Surgeon Pulmonology 01/15/25 Kisha Pennington PA [address] [place], [place] [address] Physician Ticket Worker Physician Ticket Worker 01/15/25 Devin Fuentes MD [address] [place] [address] Endocrinology 01/15/25 Angeles Peacock MD [address] [place] [address] Urology 01/15/25 Bakari Gleason MD [address] [place] [address] Referring Physician General Surgery 01/15/25 Omi Krueger MD [address] [facility] [address] [place], [place] [address] Consulting Physician Gynecologic Oncology 05/28/25 Granulator Tender Relationship Specialty Start Date End Date Sudhir Pedraza DO [address] [facility] [address] [place] [address] PCP - General Internal Medicine 05/17/24 Vitaly Sykes MD [address] [facility] [address] [place] [address] Ophthalmology 01/15/25 Keny Gomez [address] [place], [place] [address] Gastroenterology 01/15/25 Eliu Maldonado MD [address] [facility] [address] [place], [place] [address] Surgeon Pulmonology 01/15/25 Kisha Pennington PA [address] [place], [place] [address] Physician Ticket Worker Physician Ticket Worker 01/15/25 Devin Fuentes MD [address] [facility] [address] [place] [address] Endocrinology 01/15/25 Angeles Peacock MD [address] [place] [address] Urology 01/15/25 Bakari Gleason MD [address] [place] [address] Referring Physician General Surgery 01/15/25 Omi Krueger MD [address] [facility] [address] [place], [place] [address] Consulting Physician Gynecologic Oncology 05/28/25 Granulator Tender Relationship Specialty Start Date End Date Sudhir Pedraza DO [address] [facility] [address] [place] [address] PCP - General Internal Medicine 05/17/24 Vitaly Sykes MD [address] [facility] [address] [place] [address] Ophthalmology 01/15/25 Keny Gomez [address], [address] [place] [address] Gastroenterology 01/15/25 Eliu Maldonado MD [address] [facility] [address] [place] [address] Surgeon Pulmonology 01/15/25 Kisha Pennington PA [address], [facility] [address] [place] [address] Physician Ticket Worker Physician Ticket Worker 01/15/25 Devin Fuentes MD [address] [facility] [address] [place] [address] Endocrinology 01/15/25 Angeels Peacock MD [address] [place] [address] Urology 01/15/25 Bakari Gleason MD [address] [place] [address] Referring Physician General Surgery 01/15/25 Omi Krueger MD [address] [facility] [address] [place], [place] [address] Consulting Physician Gynecologic Oncology 05/28/25 Granulator Tender Relationship Specialty Start Date End Date Sudhir Pedraza DO [address] [facility] [address] [place] [address] PCP - General Internal Medicine 05/17/24 Vitaly Sykes MD [address] [facility] [address] [place], [place] [address] Ophthalmology 01/15/25 Keny Gomez [address] [place], [place] [address] Gastroenterology 01/15/25 Eliu Maldonado MD [address] [facility] [address] [place] [address] Surgeon Pulmonology 01/15/25 Kisha Pennington PA [address] [place], [place] [address] Physician Ticket Worker Physician Ticket Worker 01/15/25 Devin Fuentes MD [address] [facility] [address] [place] [address] Endocrinology 01/15/25 Angeles Peacock MD [address] [facility] [address] [place] [address] Urology 01/15/25 Bakari Gleason MD [address] [place] [address] Referring Physician General Surgery 01/15/25 Omi Krueger MD [address] [facility] [address] [place] [address] Consulting Physician Gynecologic Oncology 05/28/25 Granulator Tender Relationship Specialty Start Date End Date Sudhir Pedraza DO [address] [place] [address] PCP - General Internal Medicine 05/17/24 Vitaly Sykes MD [address] [facility] [address] [place] [address] Ophthalmology 01/15/25 Keny Gomez [address] [place], [place] [address] Gastroenterology 01/15/25 Eliu Maldonado MD [address] [place], [place] [address] Surgeon Pulmonology 01/15/25 Kisha Pennington PA [address] [place], [place] [address] Physician Ticket Worker Physician Ticket Worker 01/15/25 Devin Fuentes MD [address] [facility] [address] [place], [place] [address] Endocrinology 01/15/25 Angeles Peacock MD [address] [facility] [address] [place] [address] Urology 01/15/25 Bakari Gleason MD [address] [place] [address] Referring Physician General Surgery 01/15/25 Omi Krueger MD [address] [facility] [address] [place] [address] Consulting Physician Gynecologic Oncology 05/28/25 Granulator Tender Relationship Specialty Start Date End Date Sudhir Pedraza DO [address] [place] [address] PCP - General Internal Medicine 05/17/24 Vitaly Sykes MD [address] [facility] [address] [place] [address] Ophthalmology 01/15/25 Keny Gomez [address], [address] [place] [address] Gastroenterology 01/15/25 Eliu Maldonado MD [address] [facility] [address] [place] [address] Surgeon Pulmonology 01/15/25 Kisha Pennington PA [address], [facility] [address] [place] [address] Physician Ticket Worker Physician Ticket Worker 01/15/25 Devin Funetes MD [address] [facility] [address] [place] [address] Endocrinology 01/15/25 Angeles Peacock MD [address] [facility] [address] [place] [address] Urology 01/15/25 Bakari Gleason MD [address] [place] [address] Referring Physician General Surgery 01/15/25 Omi Krueger MD [address] [facility] [address] [place] [address] Consulting Physician Gynecologic Oncology 05/28/25 Team Status: Active Member Role/Relationship Status Dates Out of Town Doctor Primary care physician Active Team Status: Inactive Member Role/Relationship Status Dates Out of Town Doctor Primary care physician Active Start: August 13, 2025 End: August 13, 2025 Out of Town Doctor Referring Provider Active Sta rt: August 13, 2025 End: August 13, 2025 Dr. Keny Gomez DO Attending physician Active Start: August 13, 2025 End: August 13, 2025 Team Status: Inactive Member Role/Relationship Status Dates Out of Town Doctor Primary care physician Active Start: August 13, 2025 End: August 13, 2025 Out of Town Doctor Referring Provider Active Sta rt: August 13, 2025 End: August 13, 2025 Dr. Joyce Kelley MD Attending physician Active Start: August 13, 2025 End: August 13, 2025 Team Status: Active Member Role/Relationship Status Dates Dr. Ari Lundberg MD Primary care physician Active Start: August 13, 2025 Dr. Joyce Kelley MD Attending physician Active Start: August 13, 2025 Dr. Joyce Kelley MD Referring Provider Active Start: August 13, 2025 Goals (unrecognized section and content) Goals may be documented in a n alternate sectionGoals may be documented in an alternate sectionGoals may be documented in an alternate sectionGoals may be documented in an alternate sectionGoals may be documented in an alternate sectionGoals may be documented in an alternate sectionGoals may be documented in an alternate sectionGoals may be documented in an alternate sectionGoals may be documented in an alternate sectionGoals may be documented in an alternate sectionGoals may be documented in an alternate sectionGoals may be documented in an alternate sectionGoals may be documented in an alternate sectionGoals may be documented in an alternate section FOR RECORDS PERTAINING TO PATIENTS WHO ARE OR HAVE BEEN ENROLLED IN A CHEMICAL DEPENDENCY/SUBSTANCEABUSE PROGRAM, SOME INFORMATION MAY BE OMITTED. This clinical summary was aggregated from multiple sources. Caution should be exercised in using it in the provision of clinical care. This summary normalizes information from multiple sources, and as a consequence, information in this document may materially change the coding, format and clinical context of patient data. In addition, data may be omitted in some cases. CLINICAL DECISIONS SHOULD BE BASED ON THE PRIMARY CLINICAL RECORDS. [employer] provides no warranty or guarantee of the accuracy or completeness of information in this document.
== END | disposition home or self-care (01) ==
LOC: US 07:41
PROVIDERS: Referring Provider Internal Medicine Gastroenterology; Visit Provider Internal Medicine Gastroenterology
DX: K76.0 Fatty (change of) liver, not elsewhere classified (principal)
CPT/HCPCS: 76705; 76981